=== PATIENT | male | born 1960 | race Caucasian/White ===

== ENCOUNTER → 2017-01-08 | Outpatient (CLI) | payer OTHER ==
--- NOTE | 2017-01-08 16:15 | US ---
EXAMINATION TYPE: US kidneys/renal and bladder DATE OF EXAM: 01/08/2017 10:31 AM COMPARISON: NONE CLINICAL HISTORY: R80.9 proteinuria. Proteinuria, obese patient EXAM MEASUREMENTS: Right Kidney: 13.0 x 7.2 x 5.7 cm Left Kidney: 11.7 x 6.3 x 6.1 cm Right Kidney: no hydronephrosis or masses seen Left Kidney: fluid seen within renal pelvis extending into calyces Bladder: not fully distended, limited visualization Bilateral Jets seen: yes IMPRESSION: 1. Normal renal ultrasound
== END | disposition home or self-care (01) ==
LOC: RADUSWWP 10:07
PROVIDERS: ATTEND Family Medicine
DX: R80.9 Proteinuria, unspecified (principal)
CPT/HCPCS: 76770

== ENCOUNTER 2017-05-13 16:08 | Emergency (ER) | payer OTHER ==
[2017-05-13] MEDS ORDERED: AMOXIC-POT CLAV 875MG STARTER 2 EACH TABLET PO STA (18:20)
--- NOTE | 2017-05-13 18:26 | ED ---
General Adult HPI - General Chief complaint: Skin/Abscess/Foreign Body Stated complaint: left baby toe Time Seen by Provider: 05/13/17 18:08 Source: patient, RN notes reviewed Mode of arrival: ambulatory Limitations: no limitations - History of Present Illness Initial comments: Patient's a 57-year-old male significant past medical history for diabetes, who presents emergency room today with a chief complaint of infection to the left fifth digit. He states he noticed that he had a blister 2 weeks ago. He refuses due to his work boots gets his job change and he was doing a different motion. Patient states that he noticed the blister opened and over the last few days she's noticed that the infection seems to be getting worse. He states he did go to his family doctor at the clinic was advised come here to the emergency room. Patient states he does not have any feeling down to this area is not painful but his noticed the redness and swelling. He denies any other complaints or symptoms. Patient denies any recent chills, shortness of breath, chest pain, back pain, abdominal pain, nausea or vomiting, numbness or tingling , dysuria or hematuria, constipation or diarrhea, headaches or visual changes, or any other complaints. - Related Data Home Medications Medication Instructions Recorded Confirmed ALPRAZolam [Xanax] 0.5 mg PO DAILY PRN 08/15/16 05/13/17 Atenolol 25 mg PO QAM 08/15/16 05/13/17 Atorvastatin [Lipitor] 80 mg PO HS 08/15/16 05/13/17 Escitalopram [Lexapro] 20 mg PO QAM 08/15/16 05/13/17 Lisinopril-Hctz 20-12.5 mg 1 tab PO DAILY 08/15/16 05/13/17 [Zestoretic 20-12.5] Multivitamins, Thera [Multivitamin] 1 tab PO DAILY 08/15/16 05/13/17 glipiZIDE [Glucotrol] 20 mg PO BID 08/15/16 05/13/17 metFORMIN HCL 1,000 mg PO BID 08/15/16 05/13/17 Previous Rx's Medication Instructions Recorded Amoxicillin/Potassium Clav 1 each PO Q12HR #20 tab 05/13/17 [Augmentin 875-125 Tablet] Allergies Allergy/AdvReac Type Severity Reaction Status Date / Time No Known Allergies Allergy Verified 05/13/17 16:23 Review of Systems ROS Statement: Those systems with pertinent positive or pertinent negative responses have been documented in the HPI. ROS Other: All systems not noted in ROS Statement are negative. Past Medical History Past Medical History: Diabetes Mellitus, Hyperlipidemia, Hypertension History of Any Multi-Drug Resistant Organisms: None Reported Past Surgical History: Adenoidectomy, Tonsillectomy Past Anesthesia/Blood Transfusion Reactions: No Reported Reaction Past Psychological History: Anxiety Smoking Status: Former smoker Past Alcohol Use History: None Reported Past Drug Use History: Marijuana General Exam - General Exam Comments Initial Comments: General: The patient is awake and alert, in no distress, and does not appear acutely ill. Eye: Pupils are equal, round and reactive to light, extra-ocular movements are intact. No nystagmus. There is normal conjunctiva bilaterally. No signs of icterus. Ears, nose, mouth and throat: There are moist mucous membranes and no oral lesions. Neck: The neck is supple, there is no tenderness or JVD. Cardiovascular: There is a regular rate and rhythm. No murmur, rub or gallop is appreciated. Respiratory: Lungs are clear to auscultation, respirations are non-labored, breath sounds are equal. No wheezes, stridor, rales, or rhonchi. Gastrointestinal: Soft, non-distended, non-tender abdomen without masses or organomegaly noted. There is no rebound or guarding present. No CVA tenderness. Bowel sounds are unremarkable. Musculoskeletal: Normal ROM, no tenderness. Strength 5/5. Sensation intact. Pulses equal bilaterally 2+. Neurological: A&O x 3. CN II-XII intact, There are no obvious motor or sensory deficits. Coordination appears grossly intact. Speech is normal. Skin: He does have a ulcerated wound to the lateral aspect of the left fifth digit. There is no active drainage. The color of the left toe is bluish in color. Patient's pulses are equal bilaterally 2+. He does have some small lethargic streaking up the left foot to approximately just before the left ankle. Psychiatric: Cooperative, appropriate mood & affect, normal judgment. Limitations: no limitations Course Vital Signs 05/13/17 16:20 Temperature 100 F H Pulse Rate 122 H Respiratory 20 Rate Blood Pressure 182/104 O2 Sat by Pulse 99 Oximetry Medical Decision Making - Medical Decision Making Patient was discussed with the patient admission to the hospital. He does have lymphangitic streaking low-grade fever here in the emergency room. Patient states he does not want to be admitted. States he would rather go home on antibiotics. Patient will be started on antibiotics to Augmentin. Disposition Clinical Impression: Diabetic foot ulcer Disposition: HOME SELF-CARE Condition: Undetermined Instructions: Diabetic Foot Ulcers (ED) Additional Instructions: Please follow-up with the family doctor in the next 1-2 days. Please use antibiotic as prescribed and return here to the emergency room if any symptoms increase or worsen or for any other concerns as discussed. Prescriptions: Amoxicillin/Potassium Clav [Augmentin 875-125 Tablet] 1 each PO Q12HR #20 tab Referrals: Simon Salguero DO [Primary Care Provider] - 1-2 days Time of Disposition: 18:25
[2017-05-13 18:37] VITALS: BP 138/75; PULSE 98; RESP 18; TEMP 98.4
== END 2017-05-13 18:37 | disposition home or self-care (01) ==
LOC: EC 16:08
DX: E11.621 Type 2 diabetes mellitus with foot ulcer (principal); L97.529 Non-pressure chronic ulcer of other part of left foot with unspecified severity; E78.5 Hyperlipidemia, unspecified; I10 Essential (primary) hypertension; F41.9 Anxiety disorder, unspecified; Z79.84 Long term (current) use of oral hypoglycemic drugs; Z79.899 Other long term (current) drug therapy; Z87.891 Personal history of nicotine dependence
CPT/HCPCS: 99283

== ENCOUNTER 2017-06-16 09:48 | Inpatient (IN) | payer OTHER ==
[2017-06-16] MEDS ORDERED: VANCOMYCIN IV PER PHARMACY 1 EACH MISC MISCELLANE PRN (10:19)
[2017-06-16] MEDS ORDERED: PIPERACILLIN-TAZOBACTAM 3.375 GM in DEXTROSE/WATER 1 50ML.BAG IVPB STA (10:19)
[2017-06-16] MEDS ORDERED: KETOROLAC 60 MG/2 ML VIAL IVP STA (10:20)
[2017-06-16] MEDS ORDERED: LORazepam 2 MG/ML INJ IV STA (10:20)
--- NOTE | 2017-06-16 10:24 | ED ---
General Adult HPI - General Chief complaint: Skin/Abscess/Foreign Body Stated complaint: Left foot baby toe-infection Time Seen by Provider: 06/16/17 10:00 Source: patient, RN notes reviewed Mode of arrival: ambulatory Limitations: no limitations - History of Present Illness Initial comments: This is a 57-year-old male who presents emergency Department complaining that his left fifth toe has been effective for over a month he took antibiotics early in the month but no continued to hurt drain and turned black. Patient states been a black over a week. Patient comes in today because his not getting any better and the pain is getting worse and the redness around it appears to be getting worse. Patient denies any fevers. Patient states he is diabetic. Patient has no other areas appear to be infected. - Related Data Home Medications Medication Instructions Recorded Confirmed Atenolol 25 mg PO QAM 08/15/16 06/16/17 Atorvastatin [Lipitor] 80 mg PO HS 08/15/16 06/16/17 Escitalopram [Lexapro] 20 mg PO QAM 08/15/16 06/16/17 Lisinopril-Hctz 20-12.5 mg 1 tab PO DAILY 08/15/16 06/16/17 [Zestoretic 20-12.5] Multivitamins, Thera [Multivitamin] 1 tab PO DAILY 08/15/16 06/16/17 glipiZIDE [Glucotrol] 20 mg PO AC-BID 08/15/16 06/16/17 metFORMIN HCL 1,000 mg PO BID 08/15/16 06/16/17 ALPRAZolam [Xanax] 1 mg PO DAILY 06/16/17 06/16/17 Saxagliptin HCl [Onglyza] 5 mg PO DAILY 06/16/17 06/16/17 Allergies Allergy/AdvReac Type Severity Reaction Status Date / Time No Known Allergies Allergy Verified 06/16/17 10:14 Review of Systems ROS Statement: Those systems with pertinent positive or pertinent negative responses have been documented in the HPI. ROS Other: All systems not noted in ROS Statement are negative. Past Medical History Past Medical History: Diabetes Mellitus, Hyperlipidemia, Hypertension History of Any Multi-Drug Resistant Organisms: None Reported Past Surgical History: Adenoidectomy, Tonsillectomy Past Anesthesia/Blood Transfusion Reactions: No Reported Reaction Past Psychological History: Anxiety Smoking Status: Former smoker Past Alcohol Use History: None Reported Past Drug Use History: Marijuana General Exam - General Exam Comments Initial Comments: GENERAL Patient is well-developed and well-nourished. Patient is in mild distress. EYES Patient's pupils are equal and round. Extraocular motion is intact SKIN Unremarkable NEURO The patient is alert and oriented 3 PYSCH Patient has normal interpersonal interactions. MUSCULOSKELETAL Left small toe is completely blocked her some drainage between the proximal aspect of the necrotic toe and the area that appears to be good skin. The area is also very tender and is erythematous at the base of the necrosis. Limitations: no limitations Course Vital Signs 06/16/17 10:10 Temperature 98.8 F Pulse Rate 87 Respiratory 20 Rate Blood Pressure 134/81 O2 Sat by Pulse 98 Oximetry Medical Decision Making - Lab Data Result diagrams: 06/16/17 10:48 06/16/17 10:48 Lab Results 06/16/17 06/16/17 06/16/17 Range/Units 10:48 10:48 10:48 WBC 10.5 (3.8-10.6) k/uL RBC 4.08 L (4.30-5.90) m/uL Hgb 12.9 L (13.0-17.5) gm/dL Hct 38.2 L (39.0-53.0) % MCV 93.6 (80.0-100.0) fL MCH 31.6 (25.0-35.0) pg MCHC 33.8 (31.0-37.0) g/dL RDW 13.7 (11.5-15.5) % Plt Count 370 (150-450) k/uL Neutrophils % 73 % Lymphocytes % 17 % Monocytes % 6 % Eosinophils % 2 % Basophils % 0 % Neutrophils # 7.7 (1.3-7.7) k/uL Lymphocytes # 1.7 (1.0-4.8) k/uL Monocytes # 0.6 (0-1.0) k/uL Eosinophils # 0.2 (0-0.7) k/uL Basophils # 0.1 (0-0.2) k/uL PT (9.0-12.0) sec INR (<1.2) APTT (22.0-30.0) sec Sodium 135 L (137-145) mmol/L Potassium 5.3 H (3.5-5.1) mmol/L Chloride 100 (98-107) mmol/L Carbon Dioxide 22 (22-30) mmol/L Anion Gap 13 mmol/L BUN 19 (9-20) mg/dL Creatinine 0.90 (0.66-1.25) mg/dL Est GFR (MDRD) Af Amer >60 (>60 ml/min/1.73 sqM) Est GFR (MDRD) Non-Af >60 (>60 ml/min/1.73 sqM) Glucose 288 H (74-99) mg/dL Plasma Lactic Acid Beltran 2.5 H* (0.7-2.0) mmol/L Calcium 9.7 (8.4-10.2) mg/dL Total Bilirubin 0.5 (0.2-1.3) mg/dL AST 23 (17-59) U/L ALT 37 (21-72) U/L Alkaline Phosphatase 140 H (38-126) U/L Total Protein 7.3 (6.3-8.2) g/dL Albumin 4.0 (3.5-5.0) g/dL 06/16/17 Range/Units 10:48 WBC (3.8-10.6) k/uL RBC (4.30-5.90) m/uL Hgb (13.0-17.5) gm/dL Hct (39.0-53.0) % MCV (80.0-100.0) fL MCH (25.0-35.0) pg MCHC (31.0-37.0) g/dL RDW (11.5-15.5) % Plt Count (150-450) k/uL Neutrophils % % Lymphocytes % % Monocytes % % Eosinophils % % Basophils % % Neutrophils # (1.3-7.7) k/uL Lymphocytes # (1.0-4.8) k/uL Monocytes # (0-1.0) k/uL Eosinophils # (0-0.7) k/uL Basophils # (0-0.2) k/uL PT 10.4 (9.0-12.0) sec INR 1.0 (<1.2) APTT 27.9 (22.0-30.0) sec Sodium (137-145) mmol/L Potassium (3.5-5.1) mmol/L Chloride (98-107) mmol/L Carbon Dioxide (22-30) mmol/L Anion Gap mmol/L BUN (9-20) mg/dL Creatinine (0.66-1.25) mg/dL Est GFR (MDRD) Af Amer (>60 ml/min/1.73 sqM) Est GFR (MDRD) Non-Af (>60 ml/min/1.73 sqM) Glucose (74-99) mg/dL Plasma Lactic Acid Beltran (0.7-2.0) mmol/L Calcium (8.4-10.2) mg/dL Total Bilirubin (0.2-1.3) mg/dL AST (17-59) U/L ALT (21-72) U/L Alkaline Phosphatase (38-126) U/L Total Protein (6.3-8.2) g/dL Albumin (3.5-5.0) g/dL Disposition Clinical Impression: Necrosis of toe Disposition: ADMITTED IP TO THIS HOSP Referrals: Simon Salguero DO [Primary Care Provider] - 1-2 days Time of Disposition: 12:07
[2017-06-16] MEDS ORDERED: VANCOMYCIN 2,000 MG in SODIUM CHLORIDE 0.9% 500 ML IVPB STA (10:25)
--- NOTE | 2017-06-16 10:56 | XR ---
EXAMINATION TYPE: XR toes LT DATE OF EXAM: 06/16/2017 COMPARISON: NONE HISTORY: Infection with pain TECHNIQUE: 3 views of left fifth toe were obtained. FINDINGS: Osseous structures are somewhat demineralized. There is suspicious destruction mid diaphysi s of fifth proximal phalanx. Moderate to severe soft tissue swelling of the fifth digit. Subcutaneous lucency is present suggesting gas-forming soft tissue infection overlying the fused mid to distal ph alanx. Vascular calcification overlying soft tissue is seen. IMPRESSION: There is suspected soft tissue infection distally in the fifth toe with irregular cortica l destruction strongly suspicious for acute osteomyelitis involving mid shaft of the fifth proximal p halanx.
[2017-06-16 11:13] LABS: Basophils # (A) 0.1 k/uL (0-0.2); Basophils % (A) 0 %; CHCM 33.3; Eosinophils # (A) 0.2 k/uL (0-0.7); Eosinophils % (A) 2 %; HCT 38.2 % (39.0-53.0); HDW 3.07; HGB 12.9 gm/dL (13.0-17.5); Luc # (Auto) 0.23; Luc % (Auto) 2; Lymphocytes # (A) 1.7 k/uL (1.0-4.8); Lymphocytes % (A) 17 %; MCH 31.6 pg (25.0-35.0); MCHC 33.8 g/dL (31.0-37.0); MCV 93.6 fL (80.0-100.0); Monocytes # (A) 0.6 k/uL (0-1.0); Monocytes % (A) 6 %; Neutrophils # (A) 7.7 k/uL (1.3-7.7); Neutrophils % (A) 73 %; RBC 4.08 m/uL (4.30-5.90); RDW 13.7 % (11.5-15.5); WBC 10.5 k/uL (3.8-10.6); WBC (Perox) 10.41
[2017-06-16 11:16] LABS: Partial Thromboplastin Time 27.9 sec (22.0-30.0); Prothrombin Time 10.4 sec (9.0-12.0)
[2017-06-16 11:19] LABS: ALT 37 U/L (21-72); AST 23 U/L (17-59); Alkaline Phosphatase 140 U/L (38-126); Anion Gap 13 mmol/L; Blood Urea Nitrogen 19 mg/dL (9-20); Calcium 9.7 mg/dL (8.4-10.2); Carbon Dioxide 22 mmol/L (22-30); Chloride 100 mmol/L (98-107); Glucose 288 mg/dL (74-99); Non-African American GFR(MDRD) >60 (>60 ml/min/1.73 sqM); Potassium 5.3 mmol/L (3.5-5.1); Sodium 135 mmol/L (137-145); Total Bilirubin 0.5 mg/dL (0.2-1.3); Total Protein 7.3 g/dL (6.3-8.2)
[2017-06-16] MEDS ORDERED: SODIUM CHLORIDE 0.9% 1,000 ML IV ONE ×2 (11:25→12:07)
[2017-06-16] MEDS ORDERED: VANCOMYCIN 2,000 MG in SODIUM CHLORIDE 0.9% 500 ML IVPB ONE (14:00)
[2017-06-16 15:00] LABS: Glucose,Whole Blood 161 mg/dL (75-99)
[2017-06-16] MEDS: ALPRAZolam 0.5 MG TAB PO PRN (15:46)
[2017-06-16 17:18] LABS: Glucose,Whole Blood 211 mg/dL (75-99)
[2017-06-16] MEDS ORDERED: TEMAZEPAM 15 MG CAP PO PRN (17:19)
[2017-06-16] MEDS: glipiZIDE 10 MG TAB PO SCH (17:19)
[2017-06-16] MEDS: INSULIN LISPRO (humaLOG) 300 UNIT/3 ML VIAL SQ SCH ×2 (17:20→21:47)
[2017-06-16] MEDS ORDERED: KETOROLAC 30 MG/ML 1 ML VIAL IVP SCH (18:00)
[2017-06-16] MEDS: PIPERACILLIN-TAZOBACTAM 3.375 GM in DEXTROSE/WATER 1 50ML.BAG IVPB SCH (18:27)
--- NOTE | 2017-06-16 18:41 | HP ---
HISTORY AND PHYSICAL CHIEF COMPLAINTS: Pain and swelling of the left fifth toe as well as blackish discoloration. HISTORY OF PRESENT ILLNESS: This 57-year-old gentleman with a past medical history of hypertension, hyperlipidemia, anxiety, being followed by the [facility] in [place], was noted to have a left little toe infection several weeks ago. The patient apparently was washing his feet with Epsom salt. The patient was also wearing ill-fitting shoes and had a blister at the site originally. Because of increasing difficulty, the patient came to [facility] and was admitted for further evaluation and treatment. Currently the left foot is painful, tender, erythematous. The patient was taking some antibiotic previously per mouth. The patient also has some gangrenous changes in the left foot. There is no history of fever, rigor, chills. No history of headache, loss of consciousness, seizures. PAST MEDICAL HISTORY: 1. Diabetes mellitus. 2. Hypertension. 3. Hyperlipidemia. 4. History of adenoidectomy and tonsillectomy. MEDICATIONS PRIOR TO ADMISSION: 1. Glucotrol 20 mg before meals b.i.d. 2. Onglyza 5 mg p.o. daily. 3. Lipitor 80 mg at bedtime. 4. Metformin 1000 mg b.i.d. 5. Multivitamins 1 p.o. daily. 6. Zestoretic 1 tablet p.o. daily. 7. Lexapro 20 mg each morning. 8. Atenolol 25 mg each morning. 9. Xanax 1 mg p.o. daily. ALLERGIES: NONE. FAMILY HISTORY: History of diabetes mellitus and gallbladder disease in the family. SOCIAL HISTORY: Previous history of smoking. No current smoking or alcohol intake. REVIEW OF SYSTEMS: ENT: No diminished hearing. No diminished vision. CARDIOVASCULAR SYSTEM: No angina, palpitations. RESPIRATORY SYSTEM: No cough, hemoptysis. GI: No nausea, vomiting. : No dysuria or retention. NERVOUS SYSTEM: As mentioned earlier. ALLERGY/IMMUNOLOGY: No asthma, hayfever. MUSCULOSKELETAL: As mentioned earlier. HEMATOLOGY/ONCOLOGY: No history of anemia. ENDOCRINE: As mentioned earlier. CONSTITUTIONAL: As mentioned earlier. DERMATOLOGY: As mentioned earlier. RHEUMATOLOGY: Negative. PSYCHIATRY: As mentioned earlier. PHYSICAL EXAMINATION: Alert and oriented x3. Pulse 70, blood pressure 145/83, respiration 18, temperature 98.7, pulse ox 98% on room air. HEENT: Conjunctivae normal. Oral mucosa moist. NECK: No jugular venous distention. No carotid bruit. No lymph node enlargement. CARDIOVASCULAR: S1, S2 muffled. No S3. No S4. RESPIRATORY: Breath sounds diminished at the bases. A few scattered rhonchi and crackles. ABDOMEN: Soft, obese. Nontender. No mass palpable. LEGS: The pulses are felt. Otherwise, abnormalities. Swelling of the left foot with left little toe gangrenous area present. SKIN: As mentioned earlier. NERVOUS SYSTEM: No focal motor deficit. Minimal sensory impairment. LYMPHATICS: No lymph node palpable in neck, axillae or groin. JOINTS: No active deforming arthropathy. LABS: WBC 10.5, hemoglobin 12.9, sodium 134, potassium 5.3. Plasma lactic acid 2.5. ASSESSMENT: 1. Acute left little toe infection with possible early sepsis. Rule out osteomyelitis. 2. Diabetes mellitus, type 2. 3. Diabetic peripheral neuropathy. 4. Hyponatremia. 5. Hyperkalemia. 6. History hypertension. 7. Hyperlipidemia. 8. History of Fowler's palsy. 9. History of anxiety. RECOMMENDATIONS AND DISCUSSION: In this 57-year-old gentleman who presented with multiple complex medical issues , we will monitor the patient closely. Patient was started on a combination of Zosyn and vancomycin. Will obtain wound cultures. Otherwise, we will initiate infectious disease and vascular surgery consultations. Monitor blood sugars closely. The importance of compliance was also stressed with the patient. Home medications will be continued. Also recommend DVT prophylaxis. Symptomatic treatment. Guarded prognosis because of multiple complex medical issues. Further recommendations to follow. Prognosis guarded. Discussed with the patient and family, who understand and agree. A copy of this dictation is being forwarded to Dr. Salguero, who is the primary physician. MMODL / IJN: [id number] / OC
--- NOTE | 2017-06-16 19:09 | P.GSCN ---
History of Present Illness History of present illness: 57-year-old diabetic male, patient came to the emergency room with history of left foot fifth toe gangrene according to this patient had this for the last 1 month and he was treated with the antibiotic and local care Patient has been admitted and a under care of hospitalist and Dr. Te Mustafa with IV antibiotic Medical history history of diabetes, history of hyperlipidemia, history of hypertension, Personal history former smoker Neck examination neck is supple no bruit appreciated chest clear first and second sound normal Abdomen soft nontender Vascular examination femorals are palpable posterior tibial dorsal pedis not palpable present but the Doppler left foot fifth toe has a gangrene or redness noted Plan is IV antibiotic we'll discuss with Dr. Mustafa most likel will need toe amputation we will follow with you thank you Past Medical History Past Medical History: Diabetes Mellitus, Hyperlipidemia, Hypertension, Neurologic Disorder Additional Past Medical History / Comment(s): NIDDM type II, 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 History of Any Multi-Drug Resistant Organisms: None Reported Past Surgical History: Adenoidectomy, Tonsillectomy Additional Past Surgical History / Comment(s): Colonoscopy with benign polypectomies Past Anesthesia/Blood Transfusion Reactions: No Reported Reaction Past Psychological History: Anxiety Additional Psychological History / Comment(s): Pt lives alone. He is independent. 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 Smoking Status: Former smoker Past Alcohol Use History: None Reported Additional Past Alcohol Use History / Comment(s): SMOKING: QUIT 2015, FOR 40 YRS , 2-3 PPD. Past Drug Use History: Marijuana Additional Drug Use History / Comment(s): Pt states he quit smoking marijuana and that he has not smoked marijuana in 4 months. - Past Family History Father Family Medical History: Diabetes Mellitus Additional Family Medical History / Comment(s): Father had gallbladder disease. He is 77yrs old. Mother Family Medical History: Hyperlipidemia Medications and Allergies Home Medications Medication Instructions Recorded Confirmed Type Atenolol 25 mg PO QAM 08/15/16 06/16/17 History Atorvastatin [Lipitor] 80 mg PO HS 08/15/16 06/16/17 History Escitalopram [Lexapro] 20 mg PO QAM 08/15/16 06/16/17 History Lisinopril-Hctz 20-12.5 mg 1 tab PO DAILY 08/15/16 06/16/17 History [Zestoretic 20-12.5] Multivitamins, Thera [Multivitamin] 1 tab PO DAILY 08/15/16 06/16/17 History glipiZIDE [Glucotrol] 20 mg PO AC-BID 08/15/16 06/16/17 History metFORMIN HCL 1,000 mg PO BID 08/15/16 06/16/17 History ALPRAZolam [Xanax] 1 mg PO DAILY 06/16/17 06/16/17 History Saxagliptin HCl [Onglyza] 5 mg PO DAILY 06/16/17 06/16/17 History Allergies Allergy/AdvReac Type Severity Reaction Status Date / Time No Known Allergies Allergy Verified 06/16/17 10:14 Surgical - Exam Vital Signs Temp Pulse Resp BP Pulse Ox 98.8 F 87 20 134/81 98 06/16/17 10:10 06/16/17 10:10 06/16/17 10:10 06/16/17 10:10 06/16/17 10:10 Results - Labs 06/16/17 10:48 06/16/17 10:48 Abnormal Lab Results - Last 24 Hours (Table) 06/16/17 06/16/17 06/16/17 Range/Units 10:48 10:48 10:48 RBC 4.08 L (4.30-5.90) m/uL Hgb 12.9 L (13.0-17.5) gm/dL Hct 38.2 L (39.0-53.0) % Sodium 135 L (137-145) mmol/L Potassium 5.3 H (3.5-5.1) mmol/L Glucose 288 H (74-99) mg/dL POC Glucose (mg/dL) (75-99) mg/dL Plasma Lactic Acid Beltran 2.5 H* (0.7-2.0) mmol/L Alkaline Phosphatase 140 H (38-126) U/L 06/16/17 06/16/17 Range/Units 14:57 16:48 RBC (4.30-5.90) m/uL Hgb (13.0-17.5) gm/dL Hct (39.0-53.0) % Sodium (137-145) mmol/L Potassium (3.5-5.1) mmol/L Glucose (74-99) mg/dL POC Glucose (mg/dL) 161 H 211 H (75-99) mg/dL Plasma Lactic Acid Beltran (0.7-2.0) mmol/L Alkaline Phosphatase (38-126) U/L Microbiology - Last 24 Hours (Table) 06/16/17 12:11 Wound Culture - Preliminary Toe - Left Fifth Diabetes panel 06/16/17 Range/Units 10:48 Sodium 135 L (137-145) mmol/L Potassium 5.3 H (3.5-5.1) mmol/L Chloride 100 (98-107) mmol/L Carbon Dioxide 22 (22-30) mmol/L BUN 19 (9-20) mg/dL Creatinine 0.90 (0.66-1.25) mg/dL Glucose 288 H (74-99) mg/dL Calcium 9.7 (8.4-10.2) mg/dL AST 23 (17-59) U/L ALT 37 (21-72) U/L Alkaline Phosphatase 140 H (38-126) U/L Total Protein 7.3 (6.3-8.2) g/dL Albumin 4.0 (3.5-5.0) g/dL Calcium panel 06/16/17 Range/Units 10:48 Calcium 9.7 (8.4-10.2) mg/dL Albumin 4.0 (3.5-5.0) g/dL Pituitary panel 06/16/17 Range/Units 10:48 Sodium 135 L (137-145) mmol/L Potassium 5.3 H (3.5-5.1) mmol/L Chloride 100 (98-107) mmol/L Carbon Dioxide 22 (22-30) mmol/L BUN 19 (9-20) mg/dL Creatinine 0.90 (0.66-1.25) mg/dL Glucose 288 H (74-99) mg/dL Calcium 9.7 (8.4-10.2) mg/dL Adrenal panel 06/16/17 Range/Units 10:48 Sodium 135 L (137-145) mmol/L Potassium 5.3 H (3.5-5.1) mmol/L Chloride 100 (98-107) mmol/L Carbon Dioxide 22 (22-30) mmol/L BUN 19 (9-20) mg/dL Creatinine 0.90 (0.66-1.25) mg/dL Glucose 288 H (74-99) mg/dL Calcium 9.7 (8.4-10.2) mg/dL Total Bilirubin 0.5 (0.2-1.3) mg/dL AST 23 (17-59) U/L ALT 37 (21-72) U/L Alkaline Phosphatase 140 H (38-126) U/L Total Protein 7.3 (6.3-8.2) g/dL Albumin 4.0 (3.5-5.0) g/dL
[2017-06-16 20:56] LABS: Glucose,Whole Blood 209 mg/dL (75-99)
[2017-06-16] MEDS: ATORVASTATIN 80 MG TAB PO SCH (21:47)
[2017-06-16] MEDS: metFORMIN 500 MG TAB PO SCH (21:47)
[2017-06-16] MEDS: HEPARIN SODIUM,PORCINE 5,000 UNIT/ML 1 ML VIAL SQ SCH (21:47)
--- NOTE | 2017-06-16 21:55 | P.CONS ---
History of Present Illness - Reason for Consult Consult date: 06/16/17 - Chief Complaint Black eschar left fifth toe - History of Present Illness 57-year-old male with a long-standing history of diabetes mellitus type 2 and obesity relates that normally he does provide significant Criticare to his feet. He moisturizes feet, looks for wounds, and keeps his nails well trimmed. Relates that several weeks ago he had a new. Shoes. And after wearing the shoe he developed a blister on the left foot fifth toe. He treated it as he would in the past with topical therapy. The blisters seem to worsen a bit and constantly started utilizing topical antibiotic therapy as well as Epson salt soaks for healing. Despite the local ongoing care the toe continued to worsen. Eventually the tip the toe was turning black and he sought medical attention. He was admitted to hospital and has not been seen by vascular surgery and infectious diseases consultation was requested regarding the antibiotic therapy. This for a pleasant gentleman relates that he is somewhat fanatical about his feet inspecting them frequently and even inspects his shoes. He does relate that when he saw that the wound was worsening on that fifth toe that he was talking himself in that the process was not that bad and eventually the dark spot would fall off. His family also helped him make up his mind to come to hospital. He is denying high-grade fevers, chills or rigors. Is anxious about the toe. Blood sugars have been modest. Review of Systems 57-year-old male who relates he is not feeling very poorly this time but is anxious about his foot HEENT:Denies headache or acute visual change. Denies sinus or mouth discomforts. Denies neck stiffness or pain. Denies significant oral cavity pain. Denies difficulty on swallowing. Lungs: Denies significant shortness of breath, cough, sputum production, or hemoptysis. Cardiovascular: Denies significant shortness of breath, chest pain, chest wall pain, orthopnea, dyspnea on exertion, syncope Gastrointestinal:Denies nausea, vomiting, diarrhea, constipation, hematemesis, melena, hematochezia. No no significant change of bowel habit noticed. Musculoskeletal: denies significant myalgias or arthralgias. No new joint swelling. Denies new back pain. Skin: As per the HPI Neuro: Denies headache or visual change. Denies any new onset weakness or difficulty with ambulation. Denies falls or seizures. Psychiatric:Denies anxiety or depression. Endocrine: Denies significant fatigue, denies significant weight loss or weight gain. 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 History of Any Multi-Drug Resistant Organisms: None Reported Past Surgical History: Adenoidectomy, Tonsillectomy Additional Past Surgical History / Comment(s): Colonoscopy with benign polypectomies Past Anesthesia/Blood Transfusion Reactions: No Reported Reaction Past Psychological History: Anxiety Additional Psychological History / Comment(s): Pt lives alone. He is independent. He was in the and is stationed in [place] as well as in [place], he is considerably too young to be involved in the [place] conflict. No illnesses while he was in . 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 Facility stopped smoking about a year ago. Denies significant alcohol or recreational drug use. His parents are highly involved. No animal exposures. No recent travel. Denied any sexual partners at this time. Smoking Status: Former smoker Past Alcohol Use History: None Reported Additional Past Alcohol Use History / Comment(s): SMOKING: QUIT 2015, FOR 40 YRS , 2-3 PPD. Past Drug Use History: Marijuana Additional Drug Use History / Comment(s): Pt states he quit smoking marijuana and that he has not smoked marijuana in 4 months. - Past Family History Father Family Medical History: Diabetes Mellitus Additional Family Medical History / Comment(s): Father had gallbladder disease. He is 77yrs old. Mother Family Medical History: Hyperlipidemia Medications and Allergies Home Medications and Allergies Comment(s): Current Medications Hydrocodone Bitart/Acetaminophen ([place] 5-325) 1 each PO Q6HR PRN PRN Reason: Moderate Pain Alprazolam (Xanax) 1 mg PO DAILY PRN PRN Reason: Anxiety Last Admin: 06/16/17 15:46 Dose: 1 mg Atenolol (Tenormin) 25 mg PO QAM [facility] Atorvastatin Calcium (Lipitor) 80 mg PO HS [facility] Last Admin: 06/16/17 21:47 Dose: 80 mg Escitalopram Oxalate (Lexapro) 20 mg PO QAM [facility] Glipizide (Glucotrol) 20 mg PO AC-BID [facility] Last Admin: 06/16/17 17:19 Dose: 20 mg Lisinopril/HCTZ (Zestoretic 20-12.5) 1 each PO DAILY [facility] Heparin Sodium (Porcine) (Heparin) 5,000 unit SQ Q12HR [facility] Last Admin: 06/16/17 21:47 Dose: 5,000 unit Vancomycin HCl 1,750 mg/ (Sodium Chloride) 250 mls @ 125 mls/hr IVPB Q12H [facility] Piperacillin/Tazobactam/ (Dextrose 3.375 gm/ IV Solution) 50 mls @ 12.5 mls/hr IVPB Q8H [facility] Last Admin: 06/16/17 18:27 Dose: 12.5 mls/hr Sodium Chloride (Saline 0.9%) 1,000 mls @ 100 mls/hr IV .Q10H ONE Stop: 06/16/17 22:06 Last Admin: 06/16/17 12:17 Dose: 100 mls/hr Insulin Human Lispro (Humalog) 0 unit SQ ACHS HELEN PRN Reason: Protocol Last Admin: 06/16/17 21:47 Dose: 4 unit Ketorolac Tromethamine (Toradol) 15 mg IVP Q6HR PRN PRN Reason: Pain Stop: 06/20/17 18:01 Linagliptin (Tradjenta) 5 mg PO DAILY [facility] Metformin HCl (Glucophage) 1,000 mg PO BID [facility] Last Admin: 06/16/17 21:47 Dose: 1,000 mg Multivitamins (Theragran) 1 each PO 1200 HELEN Temazepam (Restoril) 15 mg PO HS PRN PRN Reason: Insomnia Home Medications Medication Instructions Recorded Confirmed Type Atenolol 25 mg PO QAM 08/15/16 06/16/17 History Atorvastatin [Lipitor] 80 mg PO HS 08/15/16 06/16/17 History Escitalopram [Lexapro] 20 mg PO QAM 08/15/16 06/16/17 History Lisinopril-Hctz 20-12.5 mg 1 tab PO DAILY 08/15/16 06/16/17 History [Zestoretic 20-12.5] Multivitamins, Thera [Multivitamin] 1 tab PO DAILY 08/15/16 06/16/17 History glipiZIDE [Glucotrol] 20 mg PO AC-BID 08/15/16 06/16/17 History metFORMIN HCL 1,000 mg PO BID 08/15/16 06/16/17 History ALPRAZolam [Xanax] 1 mg PO DAILY 06/16/17 06/16/17 History Saxagliptin HCl [Onglyza] 5 mg PO DAILY 06/16/17 06/16/17 History Allergies Allergy/AdvReac Type Severity Reaction Status Date / Time No Known Allergies Allergy Verified 06/16/17 10:14 Physical Exam Vitals: Vital Signs Temp Pulse Pulse Resp BP BP Pulse Ox 06/16/17 15:00 97.0 F L 76 20 138/84 99 06/16/17 14:36 98.7 F 70 18 145/83 98 06/16/17 14:01 98.7 F 70 18 145/83 98 06/16/17 10:10 98.8 F 87 20 134/81 98 Intake and Output 06/16/17 06/16/17 06/16/17 06:59 14:59 22:59 Intake Total 240 Balance 240 Intake: Oral 240 Other: Weight 111.13 kg Patient Weight 06/17/17 06:59 Weight 111.13 kg Pleasant 57-year-old male who does have obesity but seems to be comfortable at this time HEENT: Anicteric conjunctiva are pink and moist nasal mucosa grossly intact without significant lesions, there is no thrush. Neck: The neck is supple without significant lymphadenopathy or thyromegaly. Lungs: Symmetrical air entry with evidence of scattered wheezes but no bronchial sounds are heard Heart: Regular rate and rhythm with an audible S1-S2, no S3 soft S4. There is no significant murmur click or rub, PMI was nondisplaced. Abdomen: Positive bowel sounds soft and nontender without palpable masses or organomegaly. There was no guarding or rebound. Extremities: The upper extremities have excellent pulses they are symmetric, no significant petechiae or telangiectasia. No splinter hemorrhages were noted. The lower extremities show evidence of the significant changes to the left foot. There is evidence of swelling to the foot, erythema to the foot in the distal leg. There is evidence of the dry gangrenous changes to the distal aspect of the fifth toe. The foot is warm to touch. No other ulcers are seen on either lower extremity. Femoral pulses are easily palpable bilaterally. No lymphadenopathy is noted to the left inguinal area. No other abnormal lymph nodes are noted at this time. Neuro: Awake alert oriented to person place and time. There are no acute new gross focal sensory motor deficits. Has distinctly intact sensation over the toes of the left foot. Results CBC & Chem 7: 06/16/17 10:48 06/16/17 10:48 Labs: Abnormal Lab Results - Last 24 Hours (Table) 06/16/17 06/16/17 06/16/17 Range/Units 10:48 10:48 10:48 RBC 4.08 L (4.30-5.90) m/uL Hgb 12.9 L (13.0-17.5) gm/dL Hct 38.2 L (39.0-53.0) % Sodium 135 L (137-145) mmol/L Potassium 5.3 H (3.5-5.1) mmol/L Glucose 288 H (74-99) mg/dL POC Glucose (mg/dL) (75-99) mg/dL Plasma Lactic Acid Beltran 2.5 H* (0.7-2.0) mmol/L Alkaline Phosphatase 140 H (38-126) U/L 06/16/17 06/16/17 06/16/17 Range/Units 14:57 16:48 20:44 RBC (4.30-5.90) m/uL Hgb (13.0-17.5) gm/dL Hct (39.0-53.0) % Sodium (137-145) mmol/L Potassium (3.5-5.1) mmol/L Glucose (74-99) mg/dL POC Glucose (mg/dL) 161 H 211 H 209 H (75-99) mg/dL Plasma Lactic Acid Beltran (0.7-2.0) mmol/L Alkaline Phosphatase (38-126) U/L Microbiology - Last 24 Hours (Table) 06/16/17 12:11 Gram Stain - Preliminary Toe - Left Fifth Wound Culture - Preliminary Laboratory Results WBC 10.5 k/uL (3.8-10.6) 06/16/17 10:48 RBC 4.08 m/uL (4.30-5.90) L 06/16/17 10:48 Hgb 12.9 gm/dL (13.0-17.5) L 06/16/17 10:48 Hct 38.2 % (39.0-53.0) L 06/16/17 10:48 MCV 93.6 fL (80.0-100.0) 06/16/17 10:48 MCH 31.6 pg (25.0-35.0) 06/16/17 10:48 MCHC 33.8 g/dL (31.0-37.0) 06/16/17 10:48 RDW 13.7 % (11.5-15.5) 06/16/17 10:48 Plt Count 370 k/uL (150-450) 06/16/17 10:48 Neutrophils % 73 % 06/16/17 10:48 Lymphocytes % 17 % 06/16/17 10:48 Monocytes % 6 % 06/16/17 10:48 Eosinophils % 2 % 06/16/17 10:48 Basophils % 0 % 06/16/17 10:48 Neutrophils # 7.7 k/uL (1.3-7.7) 06/16/17 10:48 Lymphocytes # 1.7 k/uL (1.0-4.8) 06/16/17 10:48 Monocytes # 0.6 k/uL (0-1.0) 06/16/17 10:48 Eosinophils # 0.2 k/uL (0-0.7) 06/16/17 10:48 Basophils # 0.1 k/uL (0-0.2) 06/16/17 10:48 PT 10.4 sec (9.0-12.0) 06/16/17 10:48 INR 1.0 (<1.2) 06/16/17 10:48 APTT 27.9 sec (22.0-30.0) 06/16/17 10:48 Sodium 135 mmol/L (137-145) L 06/16/17 10:48 Potassium 5.3 mmol/L (3.5-5.1) H 06/16/17 10:48 Chloride 100 mmol/L (98-107) 06/16/17 10:48 Carbon Dioxide 22 mmol/L (22-30) 06/16/17 10:48 Anion Gap 13 mmol/L 06/16/17 10:48 BUN 19 mg/dL (9-20) 06/16/17 10:48 Creatinine 0.90 mg/dL (0.66-1.25) 06/16/17 10:48 Est GFR (MDRD) Af Amer >60 (>60 ml/min/1.73 sqM) 06/16/17 10:48 Est GFR (MDRD) Non-Af >60 (>60 ml/min/1.73 sqM) 06/16/17 10:48 Glucose 288 mg/dL (74-99) H 06/16/17 10:48 POC Glucose (mg/dL) 209 mg/dL (75-99) H 06/16/17 20:44 POC Glu Certified Midwife ID Nikki Mejía 06/16/17 20:44 Lactic Ac Sepsis Rflx Y 06/16/17 11:17 Plasma Lactic Acid Bel[place] 1.5 mmol/L (0.7-2.0) 06/16/17 14:57 Calcium 9.7 mg/dL (8.4-10.2) 06/16/17 10:48 Total Bilirubin 0.5 mg/dL (0.2-1.3) 06/16/17 10:48 AST 23 U/L (17-59) 06/16/17 10:48 ALT 37 U/L (21-72) 06/16/17 10:48 Alkaline Phosphatase 140 U/L (38-126) H 06/16/17 10:48 Total Protein 7.3 g/dL (6.3-8.2) 06/16/17 10:48 Albumin 4.0 g/dL (3.5-5.0) 06/16/17 10:48 Microbiology 06/16/17 12:11 Toe - Left Fifth Gram Stain - Preliminary 06/16/17 12:11 Toe - Left Fifth Wound Culture - Preliminary Assessment and Plan (1) Osteomyelitis of toe Status: Acute (2) Diabetic ulcer of left foot associated with diabetes mellitus due to underlying condition, with necrosis of bone Narrative/Plan: 57-year-old male with a several year history of diabetes mellitus type 2 and obesity presents with somewhat sudden onset of gangrenous change to his left fifth toe. He believes it started as a blister from an ill fitting shoe. Despite ongoing care for at home he is now developed evidence of a gangrenous changes to the toe. Vascular surgery consult is in progress and await their evaluation as to the patient's vascular status need for any workup before proceeding to the amputation of that fifth distal toe. Given his diabetes antimicrobial therapy with piperacillin tazobactam and vancomycin area process pending culture results. Fortunately the patient is a 30 stopped smoking We'll need to offload that foot We'll follow the wound healing center after discharge Multivitamin with zinc is requested Ensure there is adequate protein intake Enhance his glucose control Status: Acute
[2017-06-16] MEDS: VANCOMYCIN 1,750 MG in SODIUM CHLORIDE 0.9% 250 ML IVPB SCH (22:40)
[2017-06-17] MEDS: PIPERACILLIN-TAZOBACTAM 3.375 GM in DEXTROSE/WATER 1 50ML.BAG IVPB SCH ×3 (02:59→18:53)
[2017-06-17 07:21] LABS: Glucose,Whole Blood 140 mg/dL (75-99)
[2017-06-17] MEDS: glipiZIDE 10 MG TAB PO SCH ×2 (07:27→18:47)
[2017-06-17] MEDS: INSULIN LISPRO (humaLOG) 300 UNIT/3 ML VIAL SQ SCH ×4 (07:27→21:17)
[2017-06-17] MEDS: HEPARIN SODIUM,PORCINE 5,000 UNIT/ML 1 ML VIAL SQ SCH ×2 (08:33→21:15)
[2017-06-17] MEDS: metFORMIN 500 MG TAB PO SCH ×2 (08:38→21:15)
[2017-06-17] MEDS: LINAGLIPTIN 5 MG TABLET PO SCH (08:38)
[2017-06-17] MEDS: ESCITALOPRAM 20 MG TAB PO SCH (08:39)
[2017-06-17] MEDS: LISINOPRIL-HCTZ 20-12.5 MG 1 EACH TAB PO SCH (08:39)
[2017-06-17] MEDS: ATENOLOL 25 MG TAB PO SCH (08:39)
[2017-06-17] MEDS: VANCOMYCIN 1,750 MG in SODIUM CHLORIDE 0.9% 250 ML IVPB SCH ×2 (09:40→22:22)
[2017-06-17 10:05] LABS: Hemoglobin A1C 11.7 % (4.2-6.1)
[2017-06-17] MEDS: ALPRAZolam 0.5 MG TAB PO PRN (10:50)
[2017-06-17] MEDS: MULTIVITAMINS, THERA 1 EACH TAB PO SCH (11:21)
[2017-06-17 12:50] LABS: Glucose,Whole Blood 196 mg/dL (75-99)
--- NOTE | 2017-06-17 13:47 | NM ---
EXAMINATION TYPE: NM bone 3 phase DATE OF EXAM: 06/17/2017 COMPARISON: 07-01 x-ray HISTORY: Swelling of the left fifth digit Triple phase bone scintigraphy was performed following the injection of24.7 mCi Tc 99m MDP. Immediat e images and 5 hours post injection images acquired. FINDINGS: There is increased perfusion to the left foot. Increased soft tissue uptake is also noted. Delayed imaging demonstrates abnormal uptake involving the tarsal bones as well as the fifth digit. IMPRESSION: Findings compatible with cellulitis and osteomyelitis fifth digit. X-ray demonstrates destructive kailash nges involving the proximal phalanx.
[2017-06-17] MEDS ORDERED: LACTATED RINGERS 1,000 ML IV ONE (16:50)
[2017-06-17 16:58] LABS: Glucose,Whole Blood 120 mg/dL (75-99)
[2017-06-17] MEDS ORDERED: PROPOFOL 10 MG/ML 20 ML VIAL IV ONE (17:26)
[2017-06-17] MEDS ORDERED: MIDAZOLAM 2 MG/2 ML VIAL ONE (17:26)
[2017-06-17] MEDS ORDERED: LIDOCAINE 1% INJ 10MG/ML (20 ML MDV) ONE (17:26)
[2017-06-17] MEDS ORDERED: LIDOCAINE 1% INJ 10MG/ML (20 ML MDV) SQ ONE ×2 (17:41)
[2017-06-17 18:21] LABS: Glucose,Whole Blood 104 mg/dL (75-99)
--- NOTE | 2017-06-17 18:42 | PN ---
PROGRESS NOTE DATE OF SERVICE: 06/17/2017 INTERVAL HISTORY: This 57-year-old gentleman who was admitted with left little toe infection and diabetic foot admitted for surgery by Dr. Irby for broad-spectrum IV antibiotics for osteomyelitis of the 5th digit. No chest pain. No palpitations. No fever. PHYSICAL EXAM: Alert and oriented x3. Pulse 85, blood pressure 148/94, respirations 20, temperature 97 degrees, pulse ox 98% room air. HEENT: Conjunctivae normal. NECK: No jugular venous distention. CARDIOVASCULAR: S1, S2 muffled. RESPIRATORY: Breath sounds diminished in the bases. A few scattered rhonchi. No crackles. ABDOMEN: Soft, nontender. LEGS: Right foot 5th toe osteomyelitis present. NERVOUS SYSTEM: No focal deficits. LABS: WBC 10.1, hemoglobin 10.9. Glucose noted. ASSESSMENT: 1. Acute left toe infection, diabetic foot with osteomyelitis with possible early sepsis. 2. Diabetes mellitus type 2. 3. History of diabetic peripheral neuropathy. 4. Hyponatremia. 5. Hypokalemia. 6. History of hypertension. 7. Hyperlipidemia. 8. History of Fowler palsy. 9. History of anxiety. RECOMMENDATIONS AND DISCUSSION: Recommend to continue current monitoring and symptomatic treatment. Otherwise at this time, I would recommend continuing with broad-spectrum IV antibiotics, possible surgery by Dr. Irby. Further recommendations to follow. Monitor blood sugars closely. Hemoglobin A1c is 11.7. We will initiate Lantus, also. MMODL / IJN: [id number] /
[2017-06-17] MEDS: HYDROcodone/APAP 5-325MG 1 EACH TAB PO PRN (20:29)
[2017-06-17 21:00] LABS: Glucose,Whole Blood 194 mg/dL (75-99)
[2017-06-17] MEDS ORDERED: INSULIN GLARGINE 100 UNIT/ML 10 ML VIAL SQ SCH (21:00)
[2017-06-17] MEDS: ATORVASTATIN 80 MG TAB PO SCH (21:15)
--- NOTE | 2017-06-17 23:02 | P.PN ---
Subjective Principal diagnosis: Left diabetic foot infection 57-year-old male with a long-standing history of diabetes mellitus type 2 and obesity relates that normally he does provide significant Criticare to his feet. He moisturizes feet, looks for wounds, and keeps his nails well trimmed. Relates that several weeks ago he had a new. Shoes. And after wearing the shoe he developed a blister on the left foot fifth toe. He treated it as he would in the past with topical therapy. The blisters seem to worsen a bit and constantly started utilizing topical antibiotic therapy as well as Epson salt soaks for healing. Despite the local ongoing care the toe continued to worsen. Eventually the tip the toe was turning black and he sought medical attention. He was admitted to hospital and has not been seen by vascular surgery and infectious diseases consultation was requested regarding the antibiotic therapy. This for a pleasant gentleman relates that he is somewhat fanatical about his feet inspecting them frequently and even inspects his shoes. He does relate that when he saw that the wound was worsening on that fifth toe that he was talking himself in that the process was not that bad and eventually the dark spot would fall off. His family also helped him make up his mind to come to hospital. He is denying high-grade fevers, chills or rigors. Is anxious about the toe. The patient is been seen by vascular surgery and is been taking the operating room for the amputation of the gangrenous fifth toe of the left foot. He is doing well postoperatively. No fevers or chills. We discussed his markedly elevated hemoglobin A1c. Objective - Vital Signs Vital signs: Vital Signs Temp 97 F L 06/17/17 18:10 Pulse 70 06/17/17 18:25 Resp 16 06/17/17 18:25 BP 124/73 06/17/17 18:25 Pulse Ox 96 06/17/17 18:25 Intake & Output 06/17/17 06/17/17 06/18/17 06:59 18:59 06:59 Intake Total 850 1090 Output Total 3 Balance 850 1087 Intake: IV 850 Oral 850 240 Output: Estimated Blood Loss 3 Other: Voiding Method Toilet # Voids 1 2 - Exam Pleasant 57-year-old male who does have obesity but seems to be comfortable at this time HEENT: Anicteric conjunctiva are pink and moist nasal mucosa grossly intact without significant lesions, there is no thrush. Neck: The neck is supple without significant lymphadenopathy or thyromegaly. Lungs: Symmetrical air entry with evidence of scattered wheezes but no bronchial sounds are heard Heart: Regular rate and rhythm with an audible S1-S2, no S3 soft S4. There is no significant murmur click or rub, PMI was nondisplaced. Abdomen: Positive bowel sounds soft and nontender without palpable masses or organomegaly. There was no guarding or rebound. Extremities: The upper extremities have excellent pulses they are symmetric, no significant petechiae or telangiectasia. No splinter hemorrhages were noted. The lower extremities show evidence of the significant changes to the left foot. There is evidence of swelling to the foot, erythema to the foot in the distal leg. There is evidence of the amputation of the fifth left toe. The foot is warm to touch. No other ulcers are seen on either lower extremity. Femoral pulses are easily palpable bilaterally. No lymphadenopathy is noted to the left inguinal area. No other abnormal lymph nodes are noted at this time. Neuro: Awake alert oriented to person place and time. There are no acute new gross focal sensory motor deficits. Has distinctly intact sensation over the toes of the left foot. - Labs CBC & Chem 7: 06/16/17 10:48 06/16/17 10:48 Labs: Abnormal Lab Results - Last 24 Hours (Table) 06/16/17 06/17/17 06/17/17 Range/Units 10:48 06:59 12:36 POC Glucose (mg/dL) 140 H 196 H (75-99) mg/dL Hemoglobin A1c 11.7 H (4.2-6.1) % 06/17/17 06/17/17 06/17/17 Range/Units 16:55 18:18 20:55 POC Glucose (mg/dL) 120 H 104 H 194 H (75-99) mg/dL Hemoglobin A1c (4.2-6.1) % Microbiology - Last 24 Hours (Table) 06/16/17 14:57 Blood Culture - Preliminary Blood No Growth after 24 hours 06/16/17 10:48 Blood Culture - Preliminary Blood No Growth after 24 hours 06/16/17 12:11 Gram Stain - Preliminary Toe - Left Fifth Wound Culture - Preliminary Strep agalactiae - (group b) Gram Neg Bacilli Laboratory Results WBC 10.5 k/uL (3.8-10.6) 06/16/17 10:48 RBC 4.08 m/uL (4.30-5.90) L 06/16/17 10:48 Hgb 12.9 gm/dL (13.0-17.5) L 06/16/17 10:48 Hct 38.2 % (39.0-53.0) L 06/16/17 10:48 MCV 93.6 fL (80.0-100.0) 06/16/17 10:48 MCH 31.6 pg (25.0-35.0) 06/16/17 10:48 MCHC 33.8 g/dL (31.0-37.0) 06/16/17 10:48 RDW 13.7 % (11.5-15.5) 06/16/17 10:48 Plt Count 370 k/uL (150-450) 06/16/17 10:48 Neutrophils % 73 % 06/16/17 10:48 Lymphocytes % 17 % 06/16/17 10:48 Monocytes % 6 % 06/16/17 10:48 Eosinophils % 2 % 06/16/17 10:48 Basophils % 0 % 06/16/17 10:48 Neutrophils # 7.7 k/uL (1.3-7.7) 06/16/17 10:48 Lymphocytes # 1.7 k/uL (1.0-4.8) 06/16/17 10:48 Monocytes # 0.6 k/uL (0-1.0) 06/16/17 10:48 Eosinophils # 0.2 k/uL (0-0.7) 06/16/17 10:48 Basophils # 0.1 k/uL (0-0.2) 06/16/17 10:48 PT 10.4 sec (9.0-12.0) 06/16/17 10:48 INR 1.0 (<1.2) 06/16/17 10:48 APTT 27.9 sec (22.0-30.0) 06/16/17 10:48 Sodium 135 mmol/L (137-145) L 06/16/17 10:48 Potassium 5.3 mmol/L (3.5-5.1) H 06/16/17 10:48 Chloride 100 mmol/L (98-107) 06/16/17 10:48 Carbon Dioxide 22 mmol/L (22-30) 06/16/17 10:48 Anion Gap 13 mmol/L 06/16/17 10:48 BUN 19 mg/dL (9-20) 06/16/17 10:48 Creatinine 0.90 mg/dL (0.66-1.25) 06/16/17 10:48 Est GFR (MDRD) Af Amer >60 (>60 ml/min/1.73 sqM) 06/16/17 10:48 Est GFR (MDRD) Non-Af >60 (>60 ml/min/1.73 sqM) 06/16/17 10:48 Glucose 288 mg/dL (74-99) H 06/16/17 10:48 POC Glucose (mg/dL) 194 mg/dL (75-99) H 06/17/17 20:55 POC Glu Loan Analyst ID Nikki Mejía 06/17/17 20:[address] Glu mg/dL 289 mg/dL 06/16/17 10:48 Hemoglobin A1c 11.7 % (4.2-6.1) H 06/16/17 10:48 Lactic Ac Sepsis Rflx Y 06/16/17 11:17 Plasma Lactic Acid Beltran 1.5 mmol/L (0.7-2.0) 06/16/17 14:57 Calcium 9.7 mg/dL (8.4-10.2) 06/16/17 10:48 Total Bilirubin 0.5 mg/dL (0.2-1.3) 06/16/17 10:48 AST 23 U/L (17-59) 06/16/17 10:48 ALT 37 U/L (21-72) 06/16/17 10:48 Alkaline Phosphatase 140 U/L (38-126) H 06/16/17 10:48 Total Protein 7.3 g/dL (6.3-8.2) 06/16/17 10:48 Albumin 4.0 g/dL (3.5-5.0) 06/16/17 10:48 Microbiology 06/16/17 14:57 Blood Blood Culture - Preliminary No Growth after 24 hours 06/16/17 10:48 Blood Blood Culture - Preliminary No Growth after 24 hours 06/16/17 12:11 Toe - Left Fifth Gram Stain - Preliminary 06/16/17 12:11 Toe - Left Fifth Wound Culture - Preliminary Strep agalactiae - (group b) Gram Neg Bacilli Assessment and Plan (1) Osteomyelitis of toe Status: Acute (2) Diabetic ulcer of left foot associated with diabetes mellitus due to underlying condition, with necrosis of bone Narrative/Plan: 57-year-old male with a several year history of diabetes mellitus type 2 and obesity presents with somewhat sudden onset of gangrenous change to his left fifth toe. He believes it started as a blister from an ill fitting shoe. Despite ongoing care for at home he is now developed evidence of a gangrenous changes to the toe. Vascular surgery consult is in progress and await their evaluation as to the patient's vascular status need for any workup before proceeding to the amputation of that fifth distal toe. Given his diabetes antimicrobial therapy with piperacillin tazobactam and vancomycin area process pending culture results. Fortunately the patient is a 30 stopped smoking We'll need to offload that foot We'll follow the wound healing center after discharge Multivitamin with zinc is requested Ensure there is adequate protein intake Enhance his glucose control We discussed the markedly elevated hemoglobin A1c and his need for dietary counseling and nutritional improvement. Will likely need insulin therapy at discharge. Given that the toe was then amputated will not need outpatient intravenous antibiotic therapy but a course of oral antibiotic therapy will be indicated at the time of discharge. He will need close follow-up in the outpatient setting in the diabetic shoes and appropriate inserts for offloading of that site. 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 Status: Acute
[2017-06-18] MEDS: KETOROLAC 30 MG/ML 1 ML VIAL IVP PRN ×3 (01:05→18:39)
[2017-06-18] MEDS: HYDROcodone/APAP 5-325MG 1 EACH TAB PO PRN ×3 (01:05→22:08)
[2017-06-18] MEDS: PIPERACILLIN-TAZOBACTAM 3.375 GM in DEXTROSE/WATER 1 50ML.BAG IVPB SCH ×3 (03:21→17:28)
[2017-06-18 07:23] LABS: Glucose,Whole Blood 156 mg/dL (75-99)
--- NOTE | 2017-06-18 07:40 | OP ---
OPERATIVE REPORT PREOPERATIVE DIAGNOSIS: Gangrene left foot, fifth toe. OPERATION: Amputation of the left foot, big toe. ANESTHESIA: Local IV sedation. Patient was brought to the operating room. Left foot was prepped and draped in the usual manner. A circular incision was made at the base of the 5th toe. Deepened through skin, fat, and fascia. Plantar and dorsal tendons were divided until we reached the proximal phalanx and using a bone cutter, we divided and after that, specimen was removed and wound was irrigated with saline and bleeding under control and pressure was applied proximally; 3-0 Vicryl and skin was closed with 3-0 mattress interrupted suture. Dressing applied. Patient tolerated the procedure well. Postop in recovery room in satisfactory condition. MMODL / IJN: [id number] /
[2017-06-18] MEDS: glipiZIDE 10 MG TAB PO SCH ×2 (07:57→17:27)
[2017-06-18] MEDS: INSULIN LISPRO (humaLOG) 300 UNIT/3 ML VIAL SQ SCH ×4 (07:57→22:09)
[2017-06-18] MEDS: ESCITALOPRAM 20 MG TAB PO SCH (07:57)
[2017-06-18] MEDS: ATENOLOL 25 MG TAB PO SCH (07:57)
[2017-06-18] MEDS: metFORMIN 500 MG TAB PO SCH ×2 (07:58→22:09)
[2017-06-18] MEDS: LISINOPRIL-HCTZ 20-12.5 MG 1 EACH TAB PO SCH (07:58)
[2017-06-18] MEDS: LINAGLIPTIN 5 MG TABLET PO SCH (07:58)
[2017-06-18] MEDS: HEPARIN SODIUM,PORCINE 5,000 UNIT/ML 1 ML VIAL SQ SCH ×2 (07:58→22:09)
[2017-06-18] MEDS: ALPRAZolam 0.5 MG TAB PO PRN (08:04)
[2017-06-18 08:38] LABS: Basophils # (A) 0.1 k/uL (0-0.2); Basophils % (A) 1 %; CH 32.1; CHCM 33.5; Eosinophils # (A) 0.2 k/uL (0-0.7); Eosinophils % (A) 2 %; HCT 33.9 % (39.0-53.0); HDW 2.92; HGB 10.9 gm/dL (13.0-17.5); Luc # (Auto) 0.13; Luc % (Auto) 2; Lymphocytes # (A) 1.4 k/uL (1.0-4.8); Lymphocytes % (A) 17 %; MCHC 32.1 g/dL (31.0-37.0); MCV 96.6 fL (80.0-100.0); Mean Platelet Volume 7.4; Monocytes # (A) 0.6 k/uL (0-1.0); Monocytes % (A) 7 %; Neutrophils # (A) 6.3 k/uL (1.3-7.7); Neutrophils % (A) 73 %; RDW 14.6 % (11.5-15.5); WBC 8.6 k/uL (3.8-10.6); WBC (Perox) 8.72
[2017-06-18 08:53] LABS: Anion Gap 9 mmol/L; Blood Urea Nitrogen 22 mg/dL (9-20); Calcium 8.5 mg/dL (8.4-10.2); Carbon Dioxide 26 mmol/L (22-30); Chloride 102 mmol/L (98-107); Glucose 153 mg/dL (74-99); Non-African American GFR(MDRD) 58 (>60 ml/min/1.73 sqM); Potassium 5.1 mmol/L (3.5-5.1); Sodium 137 mmol/L (137-145)
[2017-06-18] MEDS: VANCOMYCIN 1,750 MG in SODIUM CHLORIDE 0.9% 250 ML IVPB SCH ×2 (10:32→22:11)
[2017-06-18 12:21] LABS: Glucose,Whole Blood 171 mg/dL (75-99)
[2017-06-18] MEDS: MULTIVITAMINS, THERA 1 EACH TAB PO SCH (12:34)
[2017-06-18 13:52] VITALS: BMI 36.1
[2017-06-18 17:13] LABS: Glucose,Whole Blood 175 mg/dL (75-99)
--- NOTE | 2017-06-18 19:13 | PN ---
PROGRESS NOTE DATE OF SERVICE: 06/18/2017 INTERVAL HISTORY: This 57-year-old gentleman who was admitted with acute left toe infection also had features of diabetes mellitus. Patient underwent amputation of the left foot 5th toe by Dr. Irby. No chest pain. No palpitations. No fever. PHYSICAL EXAM: Alert and oriented times three. Pulse is 92, blood pressure 144/82, respiration 18, temperature 97.2, pulse ox 98% on room air. HEENT: Conjunctivae normal. Neck: No jugular venous distention. Cardiovascular: S1, S2 muffled. Respiratory: Breath sounds diminished at the bases. A few scattered rhonchi. No crackles. Abdomen is soft, nontender. No mass palpable. Legs status post surgery_. Central nervous system: No focal deficits. LABORATORY DATA: Creatinine is 1.29, hemoglobin 10.9. ASSESSMENT: 1. Acute left toe infection with diabetic foot with osteomyelitis with possibly early sepsis status post left fifth toe amputation. 2. Diabetes type 2. 3. History of diabetic peripheral neuropathy. 4. Hyponatremia. 5. Hypokalemia. 6. Hypertension. 7. Hyperlipidemia. 8. History of Fowler's palsy. 9. History of anxiety. RECOMMENDATIONS AND DISCUSSION: Continue current medications, continue with monitoring, symptomatic treatment. Closely monitor. Monitor blood sugars closely. I would recommend continue with Lantus and actually increase Lantus to 20 units and continue to monitor. Otherwise we will monitor the patient closely and further recommendations to follow. MMODL / IJN: [id number] / MTDD
[2017-06-18] MEDS ORDERED: INSULIN GLARGINE 100 UNIT/ML 10 ML VIAL SQ SCH (21:00)
[2017-06-18 21:22] LABS: Glucose,Whole Blood 165 mg/dL (75-99)
--- NOTE | 2017-06-18 21:45 | P.PN ---
Subjective Progress Note Date: 06/18/17 Principal diagnosis: Left diabetic foot infection 57-year-old male with a long-standing history of diabetes mellitus type 2 and obesity relates that normally he does provide significant Criticare to his feet. He moisturizes feet, looks for wounds, and keeps his nails well trimmed. Relates that several weeks ago he had a new. Shoes. And after wearing the shoe he developed a blister on the left foot fifth toe. He treated it as he would in the past with topical therapy. The blisters seem to worsen a bit and constantly started utilizing topical antibiotic therapy as well as Epson salt soaks for healing. Despite the local ongoing care the toe continued to worsen. Eventually the tip the toe was turning black and he sought medical attention. He was admitted to hospital and has not been seen by vascular surgery and infectious diseases consultation was requested regarding the antibiotic therapy. This for a pleasant gentleman relates that he is somewhat fanatical about his feet inspecting them frequently and even inspects his shoes. He does relate that when he saw that the wound was worsening on that fifth toe that he was talking himself in that the process was not that bad and eventually the dark spot would fall off. His family also helped him make up his mind to come to hospital. He is denying high-grade fevers, chills or rigors. Is anxious about the toe. The patient is been seen by vascular surgery and is been taking the operating room for the amputation of the gangrenous fifth toe of the left foot. He is doing well postoperatively. No fevers or chills. We discussed his markedly elevated hemoglobin A1c. He is having some pain with the amputation today. Objective - Vital Signs Vital signs: Vital Signs Temp 97.0 F L 06/18/17 15:00 Pulse 92 06/18/17 15:00 Resp 18 06/18/17 15:00 BP 144/83 06/18/17 15:00 Pulse Ox 93 L 06/18/17 15:00 Intake & Output 06/18/17 06/18/17 06/19/17 06:59 18:59 06:59 Intake Total 925 Balance 925 Weight 111.13 kg Intake: Oral 925 Other: # Voids 1 4 - Exam Pleasant 57-year-old male who does have obesity but seems to be comfortable at this time HEENT: Anicteric conjunctiva are pink and moist nasal mucosa grossly intact without significant lesions, there is no thrush. Neck: The neck is supple without significant lymphadenopathy or thyromegaly. Lungs: Symmetrical air entry with evidence of scattered wheezes but no bronchial sounds are heard Heart: Regular rate and rhythm with an audible S1-S2, no S3 soft S4. There is no significant murmur click or rub, PMI was nondisplaced. Abdomen: Positive bowel sounds soft and nontender without palpable masses or organomegaly. There was no guarding or rebound. Extremities: The upper extremities have excellent pulses they are symmetric, no significant petechiae or telangiectasia. No splinter hemorrhages were noted. The lower extremities show evidence of the significant changes to the left foot. There is evidence of swelling to the foot, erythema to the foot in the distal leg. There is evidence of the amputation of the fifth left toe. The site is dry and intact. The swelling to the foot and ascending erythema have improved. The foot is warm to touch. No other ulcers are seen on either lower extremity. Femoral pulses are easily palpable bilaterally. No lymphadenopathy is noted to the left inguinal area. No other abnormal lymph nodes are noted at this time. Neuro: Awake alert oriented to person place and time. There are no acute new gross focal sensory motor deficits. Has distinctly intact sensation over the toes of the left foot. - Labs CBC & Chem 7: 06/18/17 07:13 06/18/17 07:13 Labs: Abnormal Lab Results - Last 24 Hours (Table) 06/18/17 06/18/17 06/18/17 Range/Units 07:13 07:13 07:20 RBC 3.50 L (4.30-5.90) m/uL Hgb 10.9 L (13.0-17.5) gm/dL Hct 33.9 L (39.0-53.0) % BUN 22 H (9-20) mg/dL Creatinine 1.29 H (0.66-1.25) mg/dL Glucose 153 H (74-99) mg/dL POC Glucose (mg/dL) 156 H (75-99) mg/dL 06/18/17 06/18/17 06/18/17 Range/Units 12:19 17:07 21:20 RBC (4.30-5.90) m/uL Hgb (13.0-17.5) gm/dL Hct (39.0-53.0) % BUN (9-20) mg/dL Creatinine (0.66-1.25) mg/dL Glucose (74-99) mg/dL POC Glucose (mg/dL) 171 H 175 H 165 H (75-99) mg/dL Microbiology - Last 24 Hours (Table) 06/16/17 14:57 Blood Culture - Preliminary Blood No Growth after 48 hours 06/16/17 12:11 Gram Stain - Preliminary Toe - Left Fifth Wound Culture - Preliminary Strep agalactiae - (group b) Presumptive Staph aureus Klebsiella oxytoca 06/16/17 10:48 Blood Culture - Preliminary Blood No Growth after 48 hours Laboratory Results WBC 8.6 k/uL (3.8-10.6) 06/18/17 07:13 RBC 3.50 m/uL (4.30-5.90) L 06/18/17 07:13 Hgb 10.9 gm/dL (13.0-17.5) L 06/18/17 07:13 Hct 33.9 % (39.0-53.0) L 06/18/17 07:13 MCV 96.6 fL (80.0-100.0) 06/18/17 07:13 MCH 31.0 pg (25.0-35.0) 06/18/17 07:13 MCHC 32.1 g/dL (31.0-37.0) 06/18/17 07:13 RDW 14.6 % (11.5-15.5) 06/18/17 07:13 Plt Count 334 k/uL (150-450) 06/18/17 07:13 Neutrophils % 73 % 06/18/17 07:13 Lymphocytes % 17 % 06/18/17 07:13 Monocytes % 7 % 06/18/17 07:13 Eosinophils % 2 % 06/18/17 07:13 Basophils % 1 % 06/18/17 07:13 Neutrophils # 6.3 k/uL (1.3-7.7) 06/18/17 07:13 Lymphocytes # 1.4 k/uL (1.0-4.8) 06/18/17 07:13 Monocytes # 0.6 k/uL (0-1.0) 06/18/17 07:13 Eosinophils # 0.2 k/uL (0-0.7) 06/18/17 07:13 Basophils # 0.1 k/uL (0-0.2) 06/18/17 07:13 PT 10.4 sec (9.0-12.0) 06/16/17 10:48 INR 1.0 (<1.2) 06/16/17 10:48 APTT 27.9 sec (22.0-30.0) 06/16/17 10:48 Sodium 137 mmol/L (137-145) 06/18/17 07:13 Potassium 5.1 mmol/L (3.5-5.1) 06/18/17 07:13 Chloride 102 mmol/L (98-107) 06/18/17 07:13 Carbon Dioxide 26 mmol/L (22-30) 06/18/17 07:13 Anion Gap 9 mmol/L 06/18/17 07:13 BUN 22 mg/dL (9-20) H 06/18/17 07:13 Creatinine 1.29 mg/dL (0.66-1.25) H 06/18/17 07:13 Est GFR (MDRD) Af Amer >60 (>60 ml/min/1.73 sqM) 06/18/17 07:13 Est GFR (MDRD) Non-Af 58 (>60 ml/min/1.73 sqM) 06/18/17 07:13 Glucose 153 mg/dL (74-99) H 06/18/17 07:13 POC Glucose (mg/dL) 165 mg/dL (75-99) H 06/18/17 21:20 POC Glu Reconciliation Accountant ID Marizol Oh 06/18/17 21:[address] Glu mg/dL 289 mg/dL 06/16/17 10:48 Hemoglobin A1c 11.7 % (4.2-6.1) H 06/16/17 10:48 Lactic Ac Sepsis Rflx Y 06/16/17 11:17 Plasma Lactic Acid Beltran 1.5 mmol/L (0.7-2.0) 06/16/17 14:57 Calcium 8.5 mg/dL (8.4-10.2) 06/18/17 07:13 Total Bilirubin 0.5 mg/dL (0.2-1.3) 06/16/17 10:48 AST 23 U/L (17-59) 06/16/17 10:48 ALT 37 U/L (21-72) 06/16/17 10:48 Alkaline Phosphatase 140 U/L (38-126) H 06/16/17 10:48 Total Protein 7.3 g/dL (6.3-8.2) 06/16/17 10:48 Albumin 4.0 g/dL (3.5-5.0) 06/16/17 10:48 Microbiology 06/16/17 14:57 Blood Blood Culture - Preliminary No Growth after 48 hours 06/16/17 12:11 Toe - Left Fifth Gram Stain - Preliminary 06/16/17 12:11 Toe - Left Fifth Wound Culture - Preliminary Strep agalactiae - (group b) Presumptive Staph aureus Klebsiella oxytoca 06/16/17 10:48 Blood Blood Culture - Preliminary No Growth after 48 hours Assessment and Plan (1) Osteomyelitis of toe Status: Acute (2) Diabetic ulcer of left foot associated with diabetes mellitus due to underlying condition, with necrosis of bone Narrative/Plan: 57-year-old male with a several year history of diabetes mellitus type 2 and obesity presents with somewhat sudden onset of gangrenous change to his left fifth toe. He believes it started as a blister from an ill fitting shoe. Despite ongoing care for at home he is now developed evidence of a gangrenous changes to the toe. Vascular surgery consult is in progress and await their evaluation as to the patient's vascular status need for any workup before proceeding to the amputation of that fifth distal toe. Given his diabetes antimicrobial therapy with piperacillin tazobactam and vancomycin area process pending culture results. Fortunately the patient is a 30 stopped smoking We'll need to offload that foot We'll follow the wound healing center after discharge Multivitamin with zinc is requested Ensure there is adequate protein intake Enhance his glucose control We discussed the markedly elevated hemoglobin A1c and his need for dietary counseling and nutritional improvement. Will likely need insulin therapy at discharge. Given that the toe was amputated will not need outpatient intravenous antibiotic therapy but a course of oral antibiotic therapy will be indicated at the time of discharge. At this time Augmentin should be an adequate choice to complete his course of oral antibiotic therapy. He will need close follow-up in the outpatient setting in the diabetic shoes and appropriate inserts for offloading of that site. 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 Status: Acute
[2017-06-18] MEDS: ATORVASTATIN 80 MG TAB PO SCH (22:08)
[2017-06-19] MEDS: PIPERACILLIN-TAZOBACTAM 3.375 GM in DEXTROSE/WATER 1 50ML.BAG IVPB SCH ×2 (03:27→12:24)
[2017-06-19] MEDS: glipiZIDE 10 MG TAB PO SCH (07:52)
[2017-06-19] MEDS: HEPARIN SODIUM,PORCINE 5,000 UNIT/ML 1 ML VIAL SQ SCH (07:53)
[2017-06-19] MEDS: metFORMIN 500 MG TAB PO SCH (07:53)
[2017-06-19] MEDS: LINAGLIPTIN 5 MG TABLET PO SCH (07:53)
[2017-06-19] MEDS: ATENOLOL 25 MG TAB PO SCH (07:53)
[2017-06-19] MEDS: ESCITALOPRAM 20 MG TAB PO SCH (07:53)
[2017-06-19] MEDS: INSULIN LISPRO (humaLOG) 300 UNIT/3 ML VIAL SQ SCH ×2 (07:53→12:52)
[2017-06-19] MEDS: LISINOPRIL-HCTZ 20-12.5 MG 1 EACH TAB PO SCH (07:53)
[2017-06-19] MEDS: ALPRAZolam 0.5 MG TAB PO PRN (07:57)
[2017-06-19 08:00] LABS: Glucose,Whole Blood 108 mg/dL (75-99)
[2017-06-19 08:18] VITALS: BP 174/86; PULSE 78; RESP 16; TEMP 97.6
[2017-06-19] MEDS ORDERED: VANCOMYCIN TROUGH DUE 1 EACH MISC MISCELLANE ONE (09:00)
[2017-06-19] MEDS: VANCOMYCIN 1,750 MG in SODIUM CHLORIDE 0.9% 250 ML IVPB SCH (09:33)
[2017-06-19 09:52] LABS: Basophils % (A) 0 %; CH 32.4; CHCM 33.9; Eosinophils # (A) 0.2 k/uL (0-0.7); Eosinophils % (A) 2 %; HCT 37.1 % (39.0-53.0); HDW 2.91; HGB 11.2 gm/dL (13.0-17.5); Luc # (Auto) 0.11; Luc % (Auto) 1; Lymphocytes # (A) 1.3 k/uL (1.0-4.8); Lymphocytes % (A) 15 %; MCHC 30.1 g/dL (31.0-37.0); MCV 96.1 fL (80.0-100.0); Monocytes # (A) 0.5 k/uL (0-1.0); Monocytes % (A) 6 %; Neutrophils # (A) 6.3 k/uL (1.3-7.7); Neutrophils % (A) 76 %; RBC 3.86 m/uL (4.30-5.90); RDW 14.7 % (11.5-15.5); WBC 8.4 k/uL (3.8-10.6); WBC (Perox) 8.03
[2017-06-19 10:11] LABS: Anion Gap 10 mmol/L; Blood Urea Nitrogen 24 mg/dL (9-20); Carbon Dioxide 25 mmol/L (22-30); Chloride 102 mmol/L (98-107); Glucose 181 mg/dL (74-99); Non-African American GFR(MDRD) >60 (>60 ml/min/1.73 sqM); Potassium 4.6 mmol/L (3.5-5.1); Sodium 137 mmol/L (137-145)
[2017-06-19] MEDS: MULTIVITAMINS, THERA 1 EACH TAB PO SCH (12:24)
[2017-06-19 12:54] LABS: Glucose,Whole Blood 126 mg/dL (75-99)
[2017-06-19] MEDS ORDERED: INFLUENZA VACCINE (6 MOS+) 60 MCG/0.5 ML SYRINGE IM ONE (13:23)
--- NOTE | 2017-06-19 15:55 | P.DS ---
Providers Date of admission: 06/16/17 12:07 Attending physician: Malissa Corbett Consults: 06/16/17 12:07 Consult Physician Urgent Consulting Provider: Te Mustafa Consult Reason/Comments: Osteomyelitis Do you want consulting provider notified?: Yes Consult Physician Urgent Consulting Provider: Sandoval Irby Consult Reason/Comments: Necrotic toe Do you want consulting provider notified?: Yes [facility] Course: This 57-year-old gentleman with a past medical history multiple medical problems admitted with acute left little toe infection and osteomyelitis and delete diabetic foot. Patient was treated with IV antibiotics. Dr. Mustafa and Dr. Irby saw the patient. Patient underwent a left little toe amputation by Dr. Irby. Cultures show MSSA strep agalactiae and as well as Klebsiella at this time. Patient improved significantly. Of note the hemoglobin A1c was found to be elevated at 11. Recommended. Small dose of insulin for better control. A new glucometer has been arranged. [facility] as Dr. Levine with the diabetic floor chart and continued follow-up. Outpatient diabetic indications also suggested. Special diabetic orthotic shoes were also recommended. On exam vitals are stable. Cardio S1 and S2 normal. Respirator system clear to oscillation. Abdomen soft nontender. Status post surgery. Patient be discharged in a stable condition with guarded prognosis. Total time taken 35 minutes. Final diagnoses 1. Acute left little toe infection with the diabetic foot with osteomyelitis with the possible early sepsis present on admission status post left fifth toe amputation. 2. Diabetes was type II. 3. History of diabetic neuropathy. 4. Hyponatremia. 5. Hypokalemia. 6. Hypertension. 7. Hyperlipidemia. 8. History of Fowler's palsy. Plan - Discharge Summary New Discharge Prescriptions: New Amoxicillin/Potassium Clav [Augmentin 875-125 Tablet] 1 tab PO Q12HR #14 tab Insulin Glargine [Lantus] 20 unit SQ HS #1 vial Continue Atorvastatin [Lipitor] 80 mg PO HS Atenolol 25 mg PO QAM Multivitamins, Thera [Multivitamin (formulary)] 1 tab PO DAILY Lisinopril-Hctz 20-12.5 mg [Zestoretic 20-12.5] 1 tab PO DAILY Escitalopram [Lexapro] 20 mg PO QAM glipiZIDE [Glucotrol] 20 mg PO AC-BID metFORMIN HCL 1,000 mg PO BID ALPRAZolam [Xanax] 1 mg PO DAILY Saxagliptin HCl [Onglyza] 5 mg PO DAILY Discharge Medication List Atenolol 25 mg PO QAM 08/15/16 [History] Atorvastatin [Lipitor] 80 mg PO HS 08/15/16 [History] Escitalopram [Lexapro] 20 mg PO QAM 08/15/16 [History] Lisinopril-Hctz 20-12.5 mg [Zestoretic 20-12.5] 1 tab PO DAILY 08/15/16 [History ] Multivitamins, Thera [Multivitamin (formulary)] 1 tab PO DAILY 08/15/16 [History ] glipiZIDE [Glucotrol] 20 mg PO AC-BID 08/15/16 [History] metFORMIN HCL 1,000 mg PO BID 08/15/16 [History] ALPRAZolam [Xanax] 1 mg PO DAILY 06/16/17 [History] Saxagliptin HCl [Onglyza] 5 mg PO DAILY 06/16/17 [History] Amoxicillin/Potassium Clav [Augmentin 875-125 Tablet] 1 tab PO Q12HR #14 tab 12/30 [Rx] Insulin Glargine [Lantus] 20 unit SQ HS #1 vial 06/19/17 [Rx] Follow up Appointment(s)/Referral(s): Sandoval Irby MD [STAFF PHYSICIAN] - 06/26/17 Simon Salguero DO [Primary Care Provider] - 1-2 days Patient Instructions/Handouts: Diabetic Foot Ulcers (DC) Activity/Diet/Wound Care/Special Instructions: Dry dressing to left foot. Change daily. Ok to ambulate. Keep weight off toes. Walk on heel Diet consistent carb Activity Limited until follow up Accu-Cheks before meals and at bedtime and physical [facility]. Continue with insulin injections. Discharge Disposition: HOME SELF-CARE
--- NOTE | 2017-06-19 20:07 | P.PN ---
Subjective Progress Note Date: 06/19/17 Principal diagnosis: Left diabetic foot infection 57-year-old male with a long-standing history of diabetes mellitus type 2 and obesity relates that normally he does provide significant Criticare to his feet. He moisturizes feet, looks for wounds, and keeps his nails well trimmed. Relates that several weeks ago he had a new. Shoes. And after wearing the shoe he developed a blister on the left foot fifth toe. He treated it as he would in the past with topical therapy. The blisters seem to worsen a bit and constantly started utilizing topical antibiotic therapy as well as Epson salt soaks for healing. Despite the local ongoing care the toe continued to worsen. Eventually the tip the toe was turning black and he sought medical attention. He was admitted to hospital and has not been seen by vascular surgery and infectious diseases consultation was requested regarding the antibiotic therapy. This for a pleasant gentleman relates that he is somewhat fanatical about his feet inspecting them frequently and even inspects his shoes. He does relate that when he saw that the wound was worsening on that fifth toe that he was talking himself in that the process was not that bad and eventually the dark spot would fall off. His family also helped him make up his mind to come to hospital. He is denying high-grade fevers, chills or rigors. Is anxious about the toe. The patient is been seen by vascular surgery and is been taking the operating room for the amputation of the gangrenous fifth toe of the left foot. He is doing well postoperatively. No fevers or chills. We discussed his markedly elevated hemoglobin A1c. He is having some pain related to the amputation but it is well tolerated. Objective - Vital Signs Vital signs: Vital Signs Temp 97.6 F 06/19/17 07:00 Pulse 78 06/19/17 07:00 Resp 16 06/19/17 07:00 BP 174/86 06/19/17 07:00 Pulse Ox 95 06/19/17 07:00 Intake & Output 06/19/17 06/19/17 06/20/17 06:59 18:59 06:59 Other: # Voids 1 - Exam Pleasant 57-year-old male who does have obesity but seems to be comfortable at this time HEENT: Anicteric conjunctiva are pink and moist nasal mucosa grossly intact without significant lesions, there is no thrush. Neck: The neck is supple without significant lymphadenopathy or thyromegaly. Lungs: Symmetrical air entry with evidence of scattered wheezes but no bronchial sounds are heard Heart: Regular rate and rhythm with an audible S1-S2, no S3 soft S4. There is no significant murmur click or rub, PMI was nondisplaced. Abdomen: Positive bowel sounds soft and nontender without palpable masses or organomegaly. There was no guarding or rebound. Extremities: The upper extremities have excellent pulses they are symmetric, no significant petechiae or telangiectasia. No splinter hemorrhages were noted. The lower extremities show evidence of the significant changes to the left foot. There is evidence of swelling to the foot, erythema to the foot in the distal leg. There is evidence of the amputation of the fifth left toe. The site is dry and intact. The swelling to the foot and ascending erythema have improved. The foot is warm to touch. No other ulcers are seen on either lower extremity. Femoral pulses are easily palpable bilaterally. No lymphadenopathy is noted to the left inguinal area. No other abnormal lymph nodes are noted at this time. Neuro: Awake alert oriented to person place and time. There are no acute new gross focal sensory motor deficits. Has distinctly intact sensation over the toes of the left foot. - Labs CBC & Chem 7: 06/19/17 09:28 06/19/17 09:28 Labs: Abnormal Lab Results - Last 24 Hours (Table) 06/18/17 06/19/17 06/19/17 Range/Units 21:20 07:40 09:28 RBC 3.86 L (4.30-5.90) m/uL Hgb 11.2 L (13.0-17.5) gm/dL Hct 37.1 L (39.0-53.0) % MCHC 30.1 L (31.0-37.0) g/dL BUN (9-20) mg/dL Glucose (74-99) mg/dL POC Glucose (mg/dL) 165 H 108 H (75-99) mg/dL 06/19/17 06/19/17 Range/Units 09:28 12:50 RBC (4.30-5.90) m/uL Hgb (13.0-17.5) gm/dL Hct (39.0-53.0) % MCHC (31.0-37.0) g/dL BUN 24 H (9-20) mg/dL Glucose 181 H (74-99) mg/dL POC Glucose (mg/dL) 126 H (75-99) mg/dL Microbiology - Last 24 Hours (Table) 06/16/17 14:57 Blood Culture - Preliminary Blood No Growth after 72 hours 06/16/17 12:11 Gram Stain - Final Toe - Left Fifth Wound Culture - Final Strep agalactiae - (group b) Staphylococcus aureus Klebsiella oxytoca 06/16/17 10:48 Blood Culture - Preliminary Blood No Growth after 72 hours Laboratory Results WBC 8.4 k/uL (3.8-10.6) 06/19/17 09:28 RBC 3.86 m/uL (4.30-5.90) L 06/19/17 09:28 Hgb 11.2 gm/dL (13.0-17.5) L 06/19/17 09:28 Hct 37.1 % (39.0-53.0) L 06/19/17 09:28 MCV 96.1 fL (80.0-100.0) 06/19/17 09:28 MCH 29.0 pg (25.0-35.0) 06/19/17 09:28 MCHC 30.1 g/dL (31.0-37.0) L 06/19/17 09:28 RDW 14.7 % (11.5-15.5) 06/19/17 09:28 Plt Count 345 k/uL (150-450) 06/19/17 09:28 Neutrophils % 76 % 06/19/17 09:28 Lymphocytes % 15 % 06/19/17 09:28 Monocytes % 6 % 06/19/17 09:28 Eosinophils % 2 % 06/19/17 09:28 Basophils % 0 % 06/19/17 09:28 Neutrophils # 6.3 k/uL (1.3-7.7) 06/19/17 09:28 Lymphocytes # 1.3 k/uL (1.0-4.8) 06/19/17 09:28 Monocytes # 0.5 k/uL (0-1.0) 06/19/17 09:28 Eosinophils # 0.2 k/uL (0-0.7) 06/19/17 09:28 Basophils # 0.0 k/uL (0-0.2) 06/19/17 09:28 PT 10.4 sec (9.0-12.0) 06/16/17 10:48 INR 1.0 (<1.2) 06/16/17 10:48 APTT 27.9 sec (22.0-30.0) 06/16/17 10:48 Sodium 137 mmol/L (137-145) 06/19/17 09:28 Potassium 4.6 mmol/L (3.5-5.1) 06/19/17 09:28 Chloride 102 mmol/L (98-107) 06/19/17 09:28 Carbon Dioxide 25 mmol/L (22-30) 06/19/17 09:28 Anion Gap 10 mmol/L 06/19/17 09:28 BUN 24 mg/dL (9-20) H 06/19/17 09:28 Creatinine 1.17 mg/dL (0.66-1.25) 06/19/17 09:28 Est GFR (MDRD) Af Amer >60 (>60 ml/min/1.73 sqM) 06/19/17 09:28 Est GFR (MDRD) Non-Af >60 (>60 ml/min/1.73 sqM) 06/19/17 09:28 Glucose 181 mg/dL (74-99) H 06/19/17 09:28 POC Glucose (mg/dL) 126 mg/dL (75-99) H 06/19/17 12:50 POC Glu Warranty Manager ID Louise Carty 06/19/17 12:[address] Glu mg/dL 289 mg/dL 06/16/17 10:48 Hemoglobin A1c 11.7 % (4.2-6.1) H 06/16/17 10:48 Lactic Ac Sepsis Rflx Y 06/16/17 11:17 Plasma Lactic Acid Beltran 1.5 mmol/L (0.7-2.0) 06/16/17 14:57 Calcium 9.0 mg/dL (8.4-10.2) 06/19/17 09:28 Total Bilirubin 0.5 mg/dL (0.2-1.3) 06/16/17 10:48 AST 23 U/L (17-59) 06/16/17 10:48 ALT 37 U/L (21-72) 06/16/17 10:48 Alkaline Phosphatase 140 U/L (38-126) H 06/16/17 10:48 Total Protein 7.3 g/dL (6.3-8.2) 06/16/17 10:48 Albumin 4.0 g/dL (3.5-5.0) 06/16/17 10:48 Vancomycin Trough 21.7 ug/mL 06/19/17 09:28 Microbiology 06/16/17 14:57 Blood Blood Culture - Preliminary No Growth after 72 hours 06/16/17 12:11 Toe - Left Fifth Gram Stain - Final 06/16/17 12:11 Toe - Left Fifth Wound Culture - Final Strep agalactiae - (group b) Staphylococcus aureus Klebsiella oxytoca 06/16/17 10:48 Blood Blood Culture - Preliminary No Growth after 72 hours Assessment and Plan (1) Osteomyelitis of toe Status: Acute (2) Diabetic ulcer of left foot associated with diabetes mellitus due to underlying condition, with necrosis of bone Narrative/Plan: 57-year-old male with a several year history of diabetes mellitus type 2 and obesity presents with somewhat sudden onset of gangrenous change to his left fifth toe. He believes it started as a blister from an ill fitting shoe. Despite ongoing care for at home he is now developed evidence of a gangrenous changes to the toe. Vascular surgery consult is in progress and await their evaluation as to the patient's vascular status need for any workup before proceeding to the amputation of that fifth distal toe. Given his diabetes antimicrobial therapy with piperacillin tazobactam and vancomycin area process pending culture results. Fortunately the patient is a 30 stopped smoking We'll need to offload that foot We'll follow the wound healing center after discharge Multivitamin with zinc is requested Ensure there is adequate protein intake Enhance his glucose control We discussed the markedly elevated hemoglobin A1c and his need for dietary counseling and nutritional improvement. Will likely need insulin therapy at discharge. Given that the toe was amputated will not need outpatient intravenous antibiotic therapy but a course of oral antibiotic therapy will be indicated at the time of discharge. At this time Augmentin should be an adequate choice to complete his course of oral antibiotic therapy. A darco forefoot offloading shoe would be helpful. He will need close follow-up in the outpatient setting in the diabetic shoes and appropriate inserts for offloading of that site. 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 Status: Acute
== END 2017-06-19 14:21 | disposition home or self-care (01) | DRG 854 ==
LOC: EC 09:48 → 4MS4W 12:07
PROVIDERS: ADMIT Hospitalist; ATTEND Hospitalist
PROC: 0Y6Y0Z0 Detachment at Left 5th Toe, Complete, Open Approach (ICD-10-PCS; principal; 2017-06-17 09:55)
DX: A41.9 Sepsis, unspecified organism (principal); M86.9 Osteomyelitis, unspecified; E11.52 Type 2 diabetes mellitus with diabetic peripheral angiopathy with gangrene; E11.42 Type 2 diabetes mellitus with diabetic polyneuropathy; E87.1 Hypo-osmolality and hyponatremia; E11.628 Type 2 diabetes mellitus with other skin complications; E87.5 Hyperkalemia; L97.529 Non-pressure chronic ulcer of other part of left foot with unspecified severity; E11.621 Type 2 diabetes mellitus with foot ulcer; I10 Essential (primary) hypertension; E11.69 Type 2 diabetes mellitus with other specified complication; E78.5 Hyperlipidemia, unspecified; F41.9 Anxiety disorder, unspecified; G51.0 Bell's palsy; E87.6 Hypokalemia; G47.00 Insomnia, unspecified; B95.5 Unspecified streptococcus as the cause of diseases classified elsewhere; B95.61 Methicillin susceptible Staphylococcus aureus infection as the cause of diseases classified elsewhere; B96.1 Klebsiella pneumoniae [K. pneumoniae] as the cause of diseases classified elsewhere; E66.9 Obesity, unspecified; Z90.49 Acquired absence of other specified parts of digestive tract; Z79.899 Other long term (current) drug therapy; Z83.3 Family history of diabetes mellitus; Z87.891 Personal history of nicotine dependence; Z79.84 Long term (current) use of oral hypoglycemic drugs
CPT/HCPCS: 36415; 78315; 80048; 80053; 80202; 83036; 83605; 85025; 85610; 85730; 87040; 87070; 87077; 87186; 87205; 88305; 88311; 90686; 96361; 96365; 96366; 96375; 99284

== ENCOUNTER 2017-10-17 08:44 | Emergency (ER) | payer OTHER ==
[2017-10-17 08:50] VITALS: RESP 18; TEMP 97.6
[2017-10-17] MEDS ORDERED: PROPARACAINE 0.5% OPHTH DROPS 15 ML BTL RIGHT EYE STA (09:22)
--- NOTE | 2017-10-17 10:35 | ED ---
General Adult HPI - General Chief complaint: ENT Stated complaint: RT EYE PAIN Time Seen by Provider: 10/17/17 09:16 Source: patient, RN notes reviewed Mode of arrival: ambulatory Limitations: no limitations - History of Present Illness Initial comments: Patient is a 57-year-old male who presents emergency room today with a chief complaint of an irritation to the right eye. He states he woke up feeling like there was something in his right eye. He states he try to flush out. He states he tried to go to work as [employer] reveals was looking inside see if there is an eyelash or something. He states is like any better so he came here to the emergency room. He states he's had increased watery discharge and a foreign body sensation. Denies any specific injury or trauma to the area. Patient denies any other complaints. - Related Data Home Medications Medication Instructions Recorded Confirmed Atenolol 25 mg PO QAM 08/15/16 10/17/17 Atorvastatin [Lipitor] 80 mg PO HS 08/15/16 10/17/17 Escitalopram [Lexapro] 20 mg PO QAM 08/15/16 10/17/17 Lisinopril-Hctz 20-12.5 mg 1 tab PO DAILY 08/15/16 10/17/17 [Zestoretic 20-12.5] Multivitamins, Thera [Multivitamin 1 tab PO DAILY 08/15/16 10/17/17 (formulary)] glipiZIDE [Glucotrol] 20 mg PO AC-BID 08/15/16 10/17/17 metFORMIN HCL 1,000 mg PO BID 08/15/16 10/17/17 ALPRAZolam [Xanax] 1 mg PO DAILY 06/16/17 10/17/17 Saxagliptin HCl [Onglyza] 5 mg PO DAILY 06/16/17 10/17/17 Insulin Glargine [Lantus] 22 unit SQ HS 10/17/17 10/17/17 Previous Rx's Medication Instructions Recorded Tobramycin 0.3% Ophth Soln [Tobrex 1 - 2 drop BOTH EYES Q4H 7 Days ml 10/17/17 0.3% Ophth Soln] Allergies Allergy/AdvReac Type Severity Reaction Status Date / Time No Known Allergies Allergy Verified 10/17/17 09:25 Review of Systems ROS Statement: Those systems with pertinent positive or pertinent negative responses have been documented in the HPI. ROS Other: All systems not noted in ROS Statement are negative. 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 History of Any Multi-Drug Resistant Organisms: None Reported Past Surgical History: Adenoidectomy, Tonsillectomy Additional Past Surgical History / Comment(s): Colonoscopy with benign polypectomies Past Anesthesia/Blood Transfusion Reactions: No Reported Reaction Past Psychological History: Anxiety Smoking Status: Former smoker Past Alcohol Use History: None Reported Past Drug Use History: Marijuana - Past Family History Father Family Medical History: Diabetes Mellitus Additional Family Medical History / Comment(s): Father had gallbladder disease. He is 77yrs old. Mother Family Medical History: Hyperlipidemia General Exam - General Exam Comments Initial Comments: General: The patient is awake and alert, in no distress, and does not appear acutely ill. Eye: Pupils are equal, round and reactive to light, extra-ocular movements are intact. No nystagmus. Mild tenderness to the right conjunctiva with watery clear discharge. Ears, nose, mouth and throat: There are moist mucous membranes and no oral lesions. Musculoskeletal: Normal ROM, no tenderness. Strength 5/5. Sensation intact. Pulses equal bilaterally 2+. Neurological: A&O x 3. CN II-XII intact, There are no obvious motor or sensory deficits. Coordination appears grossly intact. Speech is normal. Skin: Skin is warm and dry and no rashes or lesions are noted. Psychiatric: Cooperative, appropriate mood & affect, normal judgment. Limitations: no limitations Course Vital Signs 10/17/17 08:47 Temperature 97.6 F Pulse Rate 95 Respiratory 18 Rate Blood Pressure 147/79 O2 Sat by Pulse 98 Oximetry Procedures - Procedures Initial comment: Patient's right eye was anesthetized with proparacaine. This did improve his symptoms he is pain-free. Patient's right eye was then stained with forcing checked with Wood's lamp revealing small faint corneal abrasions centrally over the pupil running vertically measuring less than 0.25 cm each running parallel. Lids were inverted and there is no other foreign bodies appreciated. Medical Decision Making - Medical Decision Making Patient does have corneal abrasion on exam. Will be treated with antibiotic drops. He is ALLERGIC to tetanus. He is advised follow up with settlement technician in the next 2 days if any symptoms are still present. Advised to return here if symptoms are increasing worsen or any other concerns. Disposition Clinical Impression: Corneal abrasion Disposition: HOME SELF-CARE Condition: Good Instructions: Corneal Abrasion (ED) Additional Instructions: Please use antibiotic drops as prescribed follow-up with settlement technician in 2 days of symptoms have not improved. Please return to emergency room if any symptoms increase or worsen or for any other concerns. Prescriptions: Tobramycin 0.3% Ophth Soln [Tobrex 0.3% Ophth Soln] 1 - 2 drop BOTH EYES Q4H 7 Days ml Referrals: Simon Salguero DO [Primary Care Provider] - 1-2 days Parminder Thomas MD [STAFF PHYSICIAN] - 1-2 days Time of Disposition: 10:32
[2017-10-17 10:45] VITALS: BP 126/83; PULSE 85
== END 2017-10-17 10:44 | disposition home or self-care (01) ==
LOC: EC 08:44
DX: S05.01XA Injury of conjunctiva and corneal abrasion without foreign body, right eye, initial encounter (principal); E11.9 Type 2 diabetes mellitus without complications; E78.5 Hyperlipidemia, unspecified; I10 Essential (primary) hypertension; G47.00 Insomnia, unspecified; F41.9 Anxiety disorder, unspecified; Z87.891 Personal history of nicotine dependence; Z79.4 Long term (current) use of insulin; Z79.899 Other long term (current) drug therapy; Z88.7 Allergy status to serum and vaccine
CPT/HCPCS: 99283

== ENCOUNTER 2019-01-05 11:14 | Inpatient (IN) | payer OTHER ==
--- NOTE | 2019-01-05 11:41 | ED ---
General Adult HPI - General Source: patient Mode of arrival: wheelchair Limitations: no limitations <Magnus Mireles - Last Filed: 01/05/19 12:35> <Israel Stout - Last Filed: 01/05/19 19:54> - General Chief complaint: Psychiatric Symptoms Stated complaint: Cut wrist/mental health Time Seen by Provider: 01/05/19 11:22 - History of Present Illness Initial comments: Dictation was produced using [employer] dictation software. please excuse any grammatical, word or spelling errors. Chief Complaint: Patient is 58-year-old male past medical history of depression presents after suicidal ideation and suicidal attempt. History of Present Illness: A 58-year-old male. He states that he's been depressed for the last several days. He feels depressed because he is single and has been single is full life and he only has his family. Patient tried to cut his wrists yesterday. He states that the cut happened at approximately 6 AM yesterday. States that he came today because he doesn't know roused ago. Patient complains of some pain at the site however denies any numbness and paresthesias to the hand. The ROS documented in this emergency department record has been reviewed and confirmed by me. Those systems with pertinent positive or negative responses have been documented in the HPI. All other systems are other negative and/or noncontributory. PHYSICAL EXAM: General Impression: Alert and oriented x3, not in acute distress HEENT: Normocephalic atraumatic, extra-ocular movements intact, pupils equal and reactive to light bilaterally, mucous membranes moist. Cardiovascular: Heart regular rate and rhythm, S1&S2 audible, no murmurs, rubs or gallops Chest: Lungs clear to auscultation bilaterally, no rhonchi, no wheeze, no rales Abdomen: Bowel sounds present, abdomen soft, non-tender, non-distended, no organomegaly Musculoskeletal: Pulses present and equal in all extremities, no peripheral edema Motor: no focal deficits noted Neurological: CN II-XII grossly intact, no focal motor or sensory deficits noted Skin: Deep linear lacerations to the anterior left without significant hemorrhage Psych: Tearful ED course: 58-year-old is ends after suicidal attempt. Patient's laceration occurred approximate 6 AM yesterday morning. He is outside of the laceration repair with no given that it has been approximately 30 hours. There does not appear to be any significant hemorrhage occurring upon examination. There does not appear to be any arterial bleeding. Patient given updated tetanus shot. Patient has tenderness listed as one of his ALLERGIES however after further discussion this does not appear to be ALLERGIC reaction. Patient's alcohol breath test is negative. Wound was dressed with petroleum gauze, Kerlix roll and Coban. Patient medically cleared for EPS evaluation. (Magnus Mireles) - Related Data Home Medications Medication Instructions Recorded Confirmed Atenolol 25 mg PO QAM 08/15/16 01/05/19 Atorvastatin [Lipitor] 80 mg PO HS 08/15/16 01/05/19 metFORMIN HCL 1,000 mg PO BID 08/15/16 01/05/19 ALPRAZolam [Xanax] 1 mg PO DAILY 06/16/17 01/05/19 Insulin Glargine [Lantus] 35 unit SQ HS 10/17/17 01/05/19 Alogliptin Benzoate [Alogliptin] 25 mg PO DAILY 01/05/19 01/05/19 Insulin Aspart [NovoLOG Flexpen] 3 units SQ DAILY 01/05/19 01/05/19 Sertraline [Zoloft] 50 mg PO DAILY 01/05/19 01/05/19 Allergies Allergy/AdvReac Type Severity Reaction Status Date / Time Tetanus Vaccines and Toxoid Allergy Rash/Hives Verified 01/05/19 11:42 Review of Systems ROS Other: All systems not noted in ROS Statement are negative. <Maguns Mireles - Last Filed: 01/05/19 12:35> ROS Other: All systems not noted in ROS Statement are negative. <Israel Stout - Last Filed: 01/05/19 19:54> ROS Statement: Those systems with pertinent positive or pertinent negative responses have been documented in the HPI. 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 History of Any Multi-Drug Resistant Organisms: None Reported Past Surgical History: Adenoidectomy, Tonsillectomy Additional Past Surgical History / Comment(s): Colonoscopy with benign polypectomies Past Anesthesia/Blood Transfusion Reactions: No Reported Reaction Past Psychological History: Anxiety Smoking Status: Current every day smoker Past Alcohol Use History: None Reported Past Drug Use History: Marijuana - Past Family History Father Family Medical History: Diabetes Mellitus Additional Family Medical History / Comment(s): Father had gallbladder disease. He is 77yrs old. Mother Family Medical History: Hyperlipidemia <Magnus Mrieles - Last Filed: 01/05/19 12:35> General Exam Limitations: no limitations <Magnus Mireles - Last Filed: 01/05/19 12:35> Course <Israel Stout - Last Filed: 01/05/19 19:54> Vital Signs 01/05/19 01/05/19 01/05/19 11:18 16:55 19:04 Temperature 97.9 F Pulse Rate 115 H 114 H 74 Respiratory 18 18 16 Rate Blood Pressure 104/64 104/72 109/70 O2 Sat by Pulse 99 93 L 99 Oximetry - Reevaluation(s) Reevaluation #1: 01/05/19 19:51 Fluid bolus provided for a DL body weight of 75.2 kg for a 5 foot 10 male of 2300 mL. 01/05/19 19:53 There is concern for possible sepsis at 1950 based on necrotic toe and leukocytosis, with tachycardia. Blood culture and lactic acid and fluid bolus and IV antibiotics have all been ordered. (Israel Stout) Medical Decision Making - Lab Data Result diagrams: 01/05/19 16:45 01/05/19 16:45 - Radiology Data Radiology results: image reviewed (chest and left foot x-ray revealed no acute process.) <Israel Stout - Last Filed: 01/05/19 19:54> - Medical Decision Making Patient reevaluated by myself, Dr. Stout. Labs reviewed. Patient will need medical doctors to assist with care. [facility]. Patient does have chronic appearing infection left great toe and x-ray will be ordered. Patient will also need further evaluation for renal insufficiency. Patient states he has been depressed for the past several days. Patient states he did cut his left arm in order to kill himself. Patient states he did not do this for attention. Patient also left a note. Positive clinical certificate completed. case was discussed with Dr. Gan, who will admit current for hospital call. He does request evaluation with Dr. Mustafa who has previously seen this patient. He does also request orthopedic consult for delayed closure of left wrist wound. Left wrist wound is approximately 36 hours old at this point and concern for closure at this time with infection. Patient will be placed on antibiotics and have orthopedic consult. (Israel Stout) - Lab Data Lab Results 01/05/19 01/05/19 01/05/19 Range/Units 16:45 16:45 17:45 WBC 34.8 H (3.8-10.6) k/uL RBC 3.54 L (4.30-5.90) m/uL Hgb 10.1 L (13.0-17.5) gm/dL Hct 31.0 L (39.0-53.0) % MCV 87.6 (80.0-100.0) fL MCH 28.7 (25.0-35.0) pg MCHC 32.8 (31.0-37.0) g/dL RDW 14.4 (11.5-15.5) % Plt Count 439 (150-450) k/uL Neutrophils % 89 % Lymphocytes % 6 % Monocytes % 4 % Eosinophils % 1 % Basophils % 0 % Neutrophils # 30.8 H (1.3-7.7) k/uL Lymphocytes # 2.0 (1.0-4.8) k/uL Monocytes # 1.2 H (0-1.0) k/uL Eosinophils # 0.3 (0-0.7) k/uL Basophils # 0.1 (0-0.2) k/uL Sodium 129 L (137-145) mmol/L Potassium 5.6 H (3.5-5.1) mmol/L Chloride 95 L (98-107) mmol/L Carbon Dioxide 22 (22-30) mmol/L Anion Gap 12 mmol/L BUN 49 H (9-20) mg/dL Creatinine 2.12 H (0.66-1.25) mg/dL Est GFR (CKD-EPI)AfAm 39 (>60 ml/min/1.73 sqM) Est GFR (CKD-EPI)NonAf 34 (>60 ml/min/1.73 sqM) Glucose 431 H (74-99) mg/dL Calcium 9.0 (8.4-10.2) mg/dL Urine Opiates Screen Not Detected (NotDetected) Ur Oxycodone Screen Not Detected (NotDetected) Urine Methadone Screen Not Detected (NotDetected) Ur Propoxyphene Screen Not Detected (NotDetected) Ur Barbiturates Screen Not Detected (NotDetected) U Tricyclic Antidepress Not Detected (NotDetected) Ur Phencyclidine Scrn Not Detected (NotDetected) Ur Amphetamines Screen Not Detected (NotDetected) U Methamphetamines Scrn Not Detected (NotDetected) U Benzodiazepines Scrn Not Detected (NotDetected) Urine Cocaine Screen Not Detected (NotDetected) U Marijuana (THC) Screen Detected H (NotDetected) Disposition <Magnus Mireles - Last Filed: 01/05/19 12:35> Is patient prescribed a controlled substance at d/c from ED?: No Decision Time: 19:48 <Israel Stout - Last Filed: 01/05/19 19:54> Clinical Impression: Depression, Attempted suicide, Renal insufficiency, Laceration of left wrist, Necrosis of toe Disposition: ADMITTED IP TO THIS HOSP Referrals: [facility],Clinic [Primary Care Provider] - 1-2 days
[2019-01-05] MEDS ORDERED: DIPH,PERTUS(ACELL)TETVAC-LF 0.5 ML VIAL IM ONE (12:34)
[2019-01-05] MEDS ORDERED: PANTOPRAZOLE 40 MG TABLET PO STA ×2 (15:19→16:20)
[2019-01-05] MEDS ORDERED: ALPRAZolam 1 MG TAB PO STA (16:13)
[2019-01-05 16:57] LABS: Basophils # (A) 0.1 k/uL (0-0.2); Basophils % (A) 0 %; Eosinophils # (A) 0.3 k/uL (0-0.7); Eosinophils % (A) 1 %; HGB 10.1 gm/dL (13.0-17.5); Lymphocytes % (A) 6 %; MCH 28.7 pg (25.0-35.0); MCHC 32.8 g/dL (31.0-37.0); MCV 87.6 fL (80.0-100.0); Mean Platelet Volume 7.4; Monocytes # (A) 1.2 k/uL (0-1.0); Monocytes % (A) 4 %; Neutrophils # (A) 30.8 k/uL (1.3-7.7); Neutrophils % (A) 89 %; Platelet Count 439 k/uL (150-450); RBC 3.54 m/uL (4.30-5.90); RDW 14.4 % (11.5-15.5); WBC 34.8 k/uL (3.8-10.6)
[2019-01-05 17:09] LABS: Potassium 5.6 mmol/L (3.5-5.1)
[2019-01-05 18:15] LABS: Amphetamine Screen,Urine Not Detected (NotDetected); Barbiturate Screen,Urine Not Detected (NotDetected); Benzodiazepines Screen,Urine Not Detected (NotDetected); Cocaine Screen,Urine Not Detected (NotDetected); Methadone Screen, Urine Not Detected (NotDetected); Opiate Screen,Urine Not Detected (NotDetected); Oxycodone Screen, Urine Not Detected (NotDetected); Phencyclidine Screen,Urine Not Detected (NotDetected); Tricyclic Antidepressant,Urine Not Detected (NotDetected); Urn Cannabinoid Scrn Detected (NotDetected)
[2019-01-05] MEDS ORDERED: INSULIN REGULAR 100 UNIT/ML VIAL SQ ONE (18:57)
--- NOTE | 2019-01-05 19:36 | XR ---
EXAMINATION: XR chest 2V DATE AND TIME: 01/05/2019 6:56 PM CLINICAL INDICATION: PHH; Chest Pain TECHNIQUE: Departmental protocol COMPARISON: None FINDINGS: The lungs are clear. The pleural spaces are negative. The cardiac silhouette is not enlarged. The remainder of the mediastinal silhouette is unremarkable. The skeletal structures and soft tissues are negative for acute findings. Bilateral nipple shadows ar e evident. IMPRESSION: NO ACUTE PROCESS.
--- NOTE | 2019-01-05 19:42 | XR ---
PROCEDURE: XR foot complete LT - 3V DATE AND TIME: 01/05/2019 6:56 PM CLINICAL INDICATION: PHH; left great toe pain and wound TECHNIQUE: Department protocol COMPARISON: 06/16/2017 FINDINGS: There are moderately prominent atherosclerotic calcifications throughout the forefoot. Exam ination of the great toe negative for acute bone or joint findings. No acute soft tissue findings are evident. IMPRESSION: No acute radiographic findings.
[2019-01-05] MEDS ORDERED: PIPERACILLIN-TAZOBACTAM 3.375 GM in SODIUM CHLORIDE 0.9% 100 ML IVPB STA (19:49)
[2019-01-05] MEDS ORDERED: VANCOMYCIN IV PER PHARMACY 1 EACH MISC MISCELLANE PRN (19:50)
[2019-01-05] MEDS ORDERED: SODIUM CHLORIDE 0.9% 1,000 ML IV STA ×2 (19:53)
[2019-01-05] MEDS ORDERED: SODIUM CHLORIDE 0.9% 500 ML 500 ML IV STA (19:53)
[2019-01-05] MEDS ORDERED: NALOXONE 0.4 MG/ML 1 ML VIAL IV PRN (19:54)
[2019-01-05] MEDS ORDERED: SODIUM CHLORIDE 0.9% 1,000 ML IV SCH (20:00)
--- NOTE | 2019-01-05 20:03 | P.HPIM ---
History of Present Illness 58-year-old pleasant gentleman came in with suicide ideation and suicide attempt and patient has a laceration to the left forearm. Patient is found to have elevated white blood cell count and patient appears to have dry gangrene of the left great toe patient apparently had an ingrown nail which was painful because of which patient states his nail completely. Weeks ago patient does have doesn't appear to have peripheral vascular disease with decreased pulses in the left lower extremity along with cold clammy limbs bilaterally loss of hair. Patient appears to be diabetic appears to be noncompliant with medications. Patient is quite a bit depressed and it did attempt suicide in his laceration was 30 hours ago because of which this is not sutured patient presently has a sitter and patient denied any dysuria denied any cough chest x-ray did not show any pneumonic process CVA is not available yet urine drug screen is positive for marijuana. Patient left hand laceration may need delayed closure. X-ray of the left great toe did not show any periosteal elevation. Review of Systems REVIEW OF SYSTEMS: CONSTITUTIONAL: No fever, no malaise, no fatigue. HEENT: No recent visual problems or hearing problems. Denied any sore throat. CARDIOVASCULAR: No chest pain, orthopnea, PND, no palpitations, no syncope. PULMONARY: No shortness of breath, no cough, no hemoptysis. GASTROINTESTINAL: No diarrhea, no nausea, no vomiting, no abdominal pain. NEUROLOGICAL: No headaches, no weakness, no numbness. HEMATOLOGICAL: Denies any bleeding or petechiae. GENITOURINARY: Denies any burning micturition, frequency, or urgency. MUSCULOSKELETAL/RHEUMATOLOGICAL: As mentioned in HPI ENDOCRINE: Denies any polyuria or polydipsia. The rest of the 14-point review of systems is negative. 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 History of Any Multi-Drug Resistant Organisms: None Reported Past Surgical History: Adenoidectomy, Tonsillectomy Additional Past Surgical History / Comment(s): Colonoscopy with benign polypectomies Past Anesthesia/Blood Transfusion Reactions: No Reported Reaction Past Psychological History: Anxiety Smoking Status: Current every day smoker Past Alcohol Use History: None Reported Past Drug Use History: Marijuana - Past Family History Father Family Medical History: Diabetes Mellitus Additional Family Medical History / Comment(s): Father had gallbladder disease. He is 77yrs old. Mother Family Medical History: Hyperlipidemia Medications and Allergies Home Medications Medication Instructions Recorded Confirmed Type Atenolol 25 mg PO QAM 08/15/16 01/05/19 History Atorvastatin [Lipitor] 80 mg PO HS 08/15/16 01/05/19 History metFORMIN HCL 1,000 mg PO BID 08/15/16 01/05/19 History ALPRAZolam [Xanax] 1 mg PO DAILY 06/16/17 01/05/19 History Insulin Glargine [Lantus] 35 unit SQ HS 10/17/17 01/05/19 History Alogliptin Benzoate [Alogliptin] 25 mg PO DAILY 01/05/19 01/05/19 History Insulin Aspart [NovoLOG Flexpen] 3 units SQ DAILY 01/05/19 01/05/19 History Sertraline [Zoloft] 50 mg PO DAILY 01/05/19 01/05/19 History Allergies Allergy/AdvReac Type Severity Reaction Status Date / Time Tetanus Vaccines and Toxoid Allergy Rash/Hives Verified 01/05/19 11:42 Physical Exam Vitals: Vital Signs Temp Pulse Resp BP Pulse Ox 01/05/19 19:04 74 16 109/70 99 01/05/19 16:55 114 H 18 104/72 93 L 01/05/19 11:18 97.9 F 115 H 18 104/64 99 Intake and Output 01/05/19 01/05/19 01/05/19 06:59 14:59 22:59 Other: Weight 108.862 kg PHYSICAL EXAMINATION: GENERAL: The patient is alert and oriented x3, not in any acute distress. Well developed, well nourished. HEENT: Pupils are round and equally reacting to light. EOMI. No scleral icterus. No conjunctival pallor. Normocephalic, atraumatic. No pharyngeal erythema. No thyromegaly. CARDIOVASCULAR: S1 and S2 present. No murmurs, rubs, or gallops. PULMONARY: Chest is clear to auscultation, no wheezing or crackles. ABDOMEN: Soft, nontender, nondistended, normoactive bowel sounds. No palpable organomegaly. MUSCULOSKELETAL: No joint swelling or deformity. EXTREMITIES: No cyanosis, clubbing, or pedal edema. Patient appears to have gangrene of the left great toe which appears to be mostly dry gangrene there is no evidence of osteo-mellitus as per the x-ray does have a big laceration with exposed tendons the left breast NEUROLOGICAL: Gross neurological examination did not reveal any focal deficits. SKIN: No rashes. Results CBC & Chem 7: 01/05/19 16:45 01/05/19 16:45 Labs: Abnormal Lab Results - Last 24 Hours (Table) 01/05/19 01/05/19 01/05/19 Range/Units 16:45 16:45 17:45 WBC 34.8 H (3.8-10.6) k/uL RBC 3.54 L (4.30-5.90) m/uL Hgb 10.1 L (13.0-17.5) gm/dL Hct 31.0 L (39.0-53.0) % Neutrophils # 30.8 H (1.3-7.7) k/uL Monocytes # 1.2 H (0-1.0) k/uL Sodium 129 L (137-145) mmol/L Potassium 5.6 H (3.5-5.1) mmol/L Chloride 95 L (98-107) mmol/L BUN 49 H (9-20) mg/dL Creatinine 2.12 H (0.66-1.25) mg/dL Glucose 431 H (74-99) mg/dL U Marijuana (THC) Screen Detected H (NotDetected) Assessment and Plan Plan: -Peripheral vascular disease with gangrene of the left great toe mostly appears to be dry gangrene clinically since he has elevated white blood cell count of 4 31,000 patient will be started on vancomycin and Zosyn cultures will be obtained and infectious disease will be consulted. Patient is diabetic. -Laceration of the left wrist and suicide attempt: Patient will need to light closure of the left hand laceration for which we'll consult orthopedic surgery. Continue with the above-mentioned antibiotics, cover with dry gauze. -Depression and suicide attempt: Patient will have a sitter and psychiatry be consulted -Type 2 diabetes mellitus uncontrolled blood sugars due to noncompliance of medications patient will be resumed on his home regimen along with sliding scale titration depending on his sliding scale requirements hold off on metformin because of her kidney injury -Acute renal failure on chronic kidney disease stage II chronic kidney disease secondary to diabetic nephropathy acute renal failure prerenal azotemia patient was started on IV fluids and continued on IV fluids. We will recheck the basic metabolic profile tomorrow -Hyperkalemia secondary to acute renal failure expected to improve with IV fluids mild hyperkalemia -Hyponatremia: Hypovolemic hyponatremia along with pseudohyponatremia sent from elevated blood sugars continue with IV fluids and continue with insulin regimen as mentioned above 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 -Marijuana use and smoking: Counseling was provided She will need both pharmacologic GI and DVT prophylaxis
[2019-01-05] MEDS ORDERED: VANCOMYCIN 1,750 MG in SODIUM CHLORIDE 0.9% 500 ML 500 ML IVPB STA (20:05)
[2019-01-05 20:09] LABS: Appearance,Urine Clear (Clear); Bilirubin,Urine Negative (Negative); Blood,Urine Trace (Negative); Color,Urine Yellow; Glucose,Urine (UA) 4+ (Negative); Hyaline Casts,Urine 23 /lpf (0-2); Ketones,Urine Negative (Negative); Leukocyte Esterase,Urine Negative (Negative); Mucus,Urine Rare /hpf; Nitrite,Urine Negative (Negative); Protein,Urine 1+ (Negative); RBC,Urine 1 /hpf (0-5); Specific Gravity,Urine 1.021 (1.001-1.035); Urobilinogen,Urine <2.0 mg/dL (<2.0); WBC,Urine 1 /hpf (0-5)
[2019-01-05 20:38] LABS: Glucose,Whole Blood 475 mg/dL (75-99)
[2019-01-05] MEDS ORDERED: INSULIN DETEMIR (LEVEMIR) 100 UNIT/ML SYR SQ SCH (21:30)
[2019-01-05] MEDS: FAMOTIDINE 20 MG TAB PO SCH (22:55)
[2019-01-05] MEDS: HEPARIN SODIUM,PORCINE 5,000 UNIT/ML 1 ML VIAL SQ SCH (23:45)
[2019-01-05] MEDS: ATORVASTATIN 80 MG TAB PO SCH (23:45)
[2019-01-05] MEDS: SODIUM CHLORIDE 0.9% 1,000 ML IV SCH (23:51)
[2019-01-06 07:06] LABS: Glucose,Whole Blood 322 mg/dL (75-99)
[2019-01-06 07:54] LABS: Calcium 8.5 mg/dL (8.4-10.2); Potassium 4.7 mmol/L (3.5-5.1)
[2019-01-06 08:13] LABS: Basophils % (A) 0 %; Eosinophils % (A) 0 %; HCT 25.8 % (39.0-53.0); Lymphocytes # (A) 1.8 k/uL (1.0-4.8); Lymphocytes % (A) 7 %; MCH 29.4 pg (25.0-35.0); MCHC 33.2 g/dL (31.0-37.0); MCV 88.5 fL (80.0-100.0); Mean Platelet Volume 6.8; Monocytes % (A) 4 %; Neutrophils # (A) 21.6 k/uL (1.3-7.7); Neutrophils % (A) 88 %; Platelet Count 332 k/uL (150-450); RBC 2.91 m/uL (4.30-5.90); RDW 14.6 % (11.5-15.5); WBC 24.7 k/uL (3.8-10.6)
[2019-01-06 08:15] LABS: HGB 8.6 gm/dL (13.0-17.5)
[2019-01-06] MEDS: PIPERACILLIN-TAZOBACTAM 3.375 GM in SODIUM CHLORIDE 0.9% 100 ML IVPB SCH ×3 (08:23→23:34)
[2019-01-06] MEDS: FAMOTIDINE 20 MG TAB PO SCH ×2 (08:23→20:45)
[2019-01-06] MEDS: SERTRALINE 50 MG TAB PO SCH (08:23)
[2019-01-06] MEDS: LINAGLIPTIN 5 MG TABLET PO SCH (08:23)
[2019-01-06] MEDS: HEPARIN SODIUM,PORCINE 5,000 UNIT/ML 1 ML VIAL SQ SCH ×4 (08:24→23:34)
[2019-01-06 11:04] LABS: Glucose,Whole Blood 391 mg/dL (75-99)
--- NOTE | 2019-01-06 11:29 | P.CNOR ---
History of Present Illness - [facility] Consult date: 01/06/19 Consult reason: other History of present illness: Patient is a 58-year-old male presenting to [facility] yesterday morning after an apparent suicide attempt. Patient attempted to cut his left wrist and forearm. This injury apparently occurred on 01/04/2019 at about 6 AM. Patient did not initially come to the hospital. He states that the wound. Bleeding, his parents had recommended patient report to the hospital for further evaluation. Upon arrival to the hospital, multiple lab tests and imaging test were done. No closure of the wound was done, they were concerned with the amount of time at the wound and mental clarity. Significant white count was noted, patient was found to have a gangrenous left great toe. He's an uncontrolled diabetic multiple medical comorbidities. We will consult with regards to the forearm laceration and also a left great toe. While the patient was evaluated at bedside today, he has a sitter with him. He notes minimal discomfort of the left wrist. Patient denies any acute pain involving the left great toe at this time. Patient states to the toes been going on for about a month. He has a history of a previous amputation involving the proximal to, he's uncertain the exact date and time. 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 History of Any Multi-Drug Resistant Organisms: None Reported Past Surgical History: Adenoidectomy, Tonsillectomy Additional Past Surgical History / Comment(s): Colonoscopy with benign polypectomies Past Anesthesia/Blood Transfusion Reactions: No Reported Reaction Past Psychological History: Anxiety Additional Psychological History / Comment(s): Pt lives alone. He is independent. He was in the and is stationed in [place] as well as in [place], he is considerably too young to be involved in the [place] conflict. No illnesses while he was in . 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 Facility stopped smoking about a year ago. Denies significant alcohol or recreational drug use. His parents are highly involved. No animal exposures. No recent travel. Denied any sexual partners at this time. Smoking Status: Current some day smoker Past Alcohol Use History: None Reported Additional Past Alcohol Use History / Comment(s): SMOKING: QUIT 2016, FOR 40 YRS, 2-3 PPD. Past Drug Use History: Marijuana Additional Drug Use History / Comment(s): Pt states he quit smoking marijuana and that he has not smoked marijuana in 4 months. - Past Family History Father Family Medical History: Diabetes Mellitus Additional Family Medical History / Comment(s): Father had gallbladder disease. He is 77yrs old. Mother Family Medical History: Hyperlipidemia Medications and Allergies Home Medications Medication Instructions Recorded Confirmed Type Atenolol 25 mg PO QAM 08/15/16 01/05/19 History Atorvastatin [Lipitor] 80 mg PO HS 08/15/16 01/05/19 History metFORMIN HCL 1,000 mg PO BID 08/15/16 01/05/19 History ALPRAZolam [Xanax] 1 mg PO DAILY 06/16/17 01/05/19 History Insulin Glargine [Lantus] 35 unit SQ HS 10/17/17 01/05/19 History Alogliptin Benzoate [Alogliptin] 25 mg PO DAILY 01/05/19 01/05/19 History Insulin Aspart [NovoLOG Flexpen] 3 units SQ W/SUPPER 01/05/19 01/05/19 History Sertraline [Zoloft] 50 mg PO DAILY 01/05/19 01/05/19 History Allergies Allergy/AdvReac Type Severity Reaction Status Date / Time Tetanus Vaccines and Toxoid Allergy Rash/Hives Verified 01/05/19 11:42 Physical Examination Left upper extremity: Bandage material was removed, no active bleeding was noted. There is an obvious laceration the potential side of the left wrist ORIF. 2 separate lacerations, one was about 4 cm in length, this transversely across the wrist, second laceration extended more vertically towards the forearm, this was also about 4 cm. Sensory exam light touch in the fingers is intact. Skin is warm to touch Left lower extremity: Obvious gangrenous left big toe noted with multiple areas necrotic tissue. Previous amputation noted of the left small toe. Generalized skin discoloration present throughout multiple areas in the foot. Results - Labs Labs: Abnormal Lab Results - Last 24 Hours (Table) 01/05/19 01/05/19 01/05/19 Range/Units 16:45 16:45 17:45 WBC 34.8 H (3.8-10.6) k/uL RBC 3.54 L (4.30-5.90) m/uL Hgb 10.1 L (13.0-17.5) gm/dL Hct 31.0 L (39.0-53.0) % Neutrophils # 30.8 H (1.3-7.7) k/uL Monocytes # 1.2 H (0-1.0) k/uL Sodium 129 L (137-145) mmol/L Potassium 5.6 H (3.5-5.1) mmol/L Chloride 95 L (98-107) mmol/L BUN 49 H (9-20) mg/dL Creatinine 2.12 H (0.66-1.25) mg/dL Glucose 431 H (74-99) mg/dL POC Glucose (mg/dL) (75-99) mg/dL TSH (0.465-4.680) mIU/L Urine Protein (Negative) Urine Glucose (UA) (Negative) Urine Blood (Negative) Hyaline Casts (0-2) /lpf Urine Mucus (None) /hpf U Marijuana (THC) Screen Detected H (NotDetected) 01/05/19 01/05/19 01/05/19 Range/Units 19:16 19:16 20:25 WBC (3.8-10.6) k/uL RBC (4.30-5.90) m/uL Hgb (13.0-17.5) gm/dL Hct (39.0-53.0) % Neutrophils # (1.3-7.7) k/uL Monocytes # (0-1.0) k/uL Sodium (137-145) mmol/L Potassium (3.5-5.1) mmol/L Chloride (98-107) mmol/L BUN (9-20) mg/dL Creatinine (0.66-1.25) mg/dL Glucose (74-99) mg/dL POC Glucose (mg/dL) 475 H (75-99) mg/dL TSH 4.950 H (0.465-4.680) mIU/L Urine Protein 1+ H (Negative) Urine Glucose (UA) 4+ H (Negative) Urine Blood Trace H (Negative) Hyaline Casts 23 H (0-2) /lpf Urine Mucus Rare H (None) /hpf U Marijuana (THC) Screen (NotDetected) 01/06/19 01/06/19 01/06/19 Range/Units 07:03 07:14 07:14 WBC 24.7 H (3.8-10.6) k/uL RBC 2.91 L (4.30-5.90) m/uL Hgb 8.6 L D (13.0-17.5) gm/dL Hct 25.8 L (39.0-53.0) % Neutrophils # 21.6 H (1.3-7.7) k/uL Monocytes # (0-1.0) k/uL Sodium 133 L (137-145) mmol/L Potassium (3.5-5.1) mmol/L Chloride (98-107) mmol/L BUN 39 H (9-20) mg/dL Creatinine 1.27 H (0.66-1.25) mg/dL Glucose 269 H (74-99) mg/dL POC Glucose (mg/dL) 322 H (75-99) mg/dL TSH (0.465-4.680) mIU/L Urine Protein (Negative) Urine Glucose (UA) (Negative) Urine Blood (Negative) Hyaline Casts (0-2) /lpf Urine Mucus (None) /hpf U Marijuana (THC) Screen (NotDetected) 01/06/19 Range/Units 11:02 WBC (3.8-10.6) k/uL RBC (4.30-5.90) m/uL Hgb (13.0-17.5) gm/dL Hct (39.0-53.0) % Neutrophils # (1.3-7.7) k/uL Monocytes # (0-1.0) k/uL Sodium (137-145) mmol/L Potassium (3.5-5.1) mmol/L Chloride (98-107) mmol/L BUN (9-20) mg/dL Creatinine (0.66-1.25) mg/dL Glucose (74-99) mg/dL POC Glucose (mg/dL) 391 H (75-99) mg/dL TSH (0.465-4.680) mIU/L Urine Protein (Negative) Urine Glucose (UA) (Negative) Urine Blood (Negative) Hyaline Casts (0-2) /lpf Urine Mucus (None) /hpf U Marijuana (THC) Screen (NotDetected) H & H 01/05/19 01/06/19 Range/Units 16:45 07:14 Hgb 10.1 L 8.6 L D (13.0-17.5) gm/dL Hct 31.0 L 25.8 L (39.0-53.0) % Result Diagrams: 01/06/19 07:14 01/06/19 07:14 Assessment and Plan Plan: Assessment: 1. Left wrist/forearm lacerations 2. Left gangrenous great toe 3. Multiple medical comorbidities Plan: I was able to discuss the case with my attending Dr. Suresh, he was present today to examine the patient and discussed treatment options. Patient is scheduled for a laceration repair of the left forearm and wrist. Plan is for surgery on 01/07/2018. Nothing by mouth after midnight Continue IV antibiotics, await infectious disease recommendations. Vascular consult was placed for left big toe, no orthopedic surgical intervention Other manager medical device recommendations Further recommendations to follow Time with Patient: Less than 30
[2019-01-06] MEDS: traMADol 50 MG TAB PO PRN ×2 (11:35→17:08)
[2019-01-06] MEDS: INSULIN ASPART (NovoLOG) 100 UNIT/ML VIAL SQ SCH ×4 (11:38→20:45)
[2019-01-06] MEDS: LORazepam 2 MG/ML INJ IV PRN (11:47)
[2019-01-06] MEDS: VANCOMYCIN 1,750 MG in SODIUM CHLORIDE 0.9% 500 ML 500 ML IVPB SCH ×2 (11:54→20:45)
[2019-01-06] MEDS: SODIUM CHLORIDE 0.9% 1,000 ML IV SCH ×2 (11:55→19:15)
--- NOTE | 2019-01-06 15:46 | P.PN ---
Subjective Patient is admitted after suicide attempt with the knife and laceration to the left forearm which need delayed closure an orthopedic surgery will do that tomorrow. Patient also has severe peripheral vascular disease with the possible dry gangrene because of leukocytosis and patient was started on antibiotics and infectious disease will evaluate the patient. White blood cell count has come down serum random creatinine has come down significantly along with blood sugars although they're not the controlled I'm increasing pre-meal as well as long- acting insulin. Constitutional: Denied any fatigue denied any fever. Cardio vascular: denied any chest pain, palpitations Gastrointestinal denied any nausea vomiting Pulmonary: Denied any shortness of breath cough Neurologic denied any new focal deficits All inpatient medications were reviewed and appropriate changes in these medications as dictated in the interval history and assessment and plan. Objective - Vital Signs Vital signs: Vital Signs Temp 98.5 F 01/06/19 13:22 Pulse 108 H 01/06/19 13:22 Resp 16 01/06/19 13:22 BP 115/70 01/06/19 13:22 Pulse Ox 95 01/06/19 13:22 Intake & Output 01/05/19 01/06/19 01/06/19 18:59 06:59 18:59 Intake Total 1200 Output Total 125 Balance 1200 -125 Weight 108.862 kg Intake: Intake, IV Titration 1200 Amount Sodium Chloride 0.9% 1, 700 000 ml @ 100 mls/hr IV . Q10H HELEN Rx#:[id number] Vancomycin 1,750 mg In 500 Sodium Chloride 0.9% 500 ml 500 ml @ 167 mls/hr IVPB Q24H HELEN Rx#: [id number] Output: Urine 125 - Exam PHYSICAL EXAMINATION: GENERAL: The patient is alert and oriented x3, not in any acute distress. Well developed, well nourished. HEENT: Pupils are round and equally reacting to light. EOMI. No scleral icterus. No conjunctival pallor. Normocephalic, atraumatic. No pharyngeal erythema. No thyromegaly. CARDIOVASCULAR: S1 and S2 present. No murmurs, rubs, or gallops. PULMONARY: Chest is clear to auscultation, no wheezing or crackles. ABDOMEN: Soft, nontender, nondistended, normoactive bowel sounds. No palpable organomegaly. MUSCULOSKELETAL: No joint swelling or deformity. EXTREMITIES: No cyanosis, clubbing, or pedal edema. Patient appears to have gangrene of the left great toe which appears to be mostly dry gangrene there is no evidence of osteo-mellitus as per the x-ray does have a big laceration with exposed tendons the left breast NEUROLOGICAL: Gross neurological examination did not reveal any focal deficits. SKIN: No rashes. - Labs CBC & Chem 7: 01/06/19 07:14 01/06/19 07:14 Labs: Abnormal Lab Results - Last 24 Hours (Table) 01/05/19 01/05/19 01/05/19 Range/Units 16:45 16:45 17:45 WBC 34.8 H (3.8-10.6) k/uL RBC 3.54 L (4.30-5.90) m/uL Hgb 10.1 L (13.0-17.5) gm/dL Hct 31.0 L (39.0-53.0) % Neutrophils # 30.8 H (1.3-7.7) k/uL Monocytes # 1.2 H (0-1.0) k/uL Sodium 129 L (137-145) mmol/L Potassium 5.6 H (3.5-5.1) mmol/L Chloride 95 L (98-107) mmol/L BUN 49 H (9-20) mg/dL Creatinine 2.12 H (0.66-1.25) mg/dL Glucose 431 H (74-99) mg/dL POC Glucose (mg/dL) (75-99) mg/dL TSH (0.465-4.680) mIU/L Urine Protein (Negative) Urine Glucose (UA) (Negative) Urine Blood (Negative) Hyaline Casts (0-2) /lpf Urine Mucus (None) /hpf U Marijuana (THC) Screen Detected H (NotDetected) 01/05/19 01/05/19 01/05/19 Range/Units 19:16 19:16 20:25 WBC (3.8-10.6) k/uL RBC (4.30-5.90) m/uL Hgb (13.0-17.5) gm/dL Hct (39.0-53.0) % Neutrophils # (1.3-7.7) k/uL Monocytes # (0-1.0) k/uL Sodium (137-145) mmol/L Potassium (3.5-5.1) mmol/L Chloride (98-107) mmol/L BUN (9-20) mg/dL Creatinine (0.66-1.25) mg/dL Glucose (74-99) mg/dL POC Glucose (mg/dL) 475 H (75-99) mg/dL TSH 4.950 H (0.465-4.680) mIU/L Urine Protein 1+ H (Negative) Urine Glucose (UA) 4+ H (Negative) Urine Blood Trace H (Negative) Hyaline Casts 23 H (0-2) /lpf Urine Mucus Rare H (None) /hpf U Marijuana (THC) Screen (NotDetected) 01/06/19 01/06/19 01/06/19 Range/Units 07:03 07:14 07:14 WBC 24.7 H (3.8-10.6) k/uL RBC 2.91 L (4.30-5.90) m/uL Hgb 8.6 L D (13.0-17.5) gm/dL Hct 25.8 L (39.0-53.0) % Neutrophils # 21.6 H (1.3-7.7) k/uL Monocytes # (0-1.0) k/uL Sodium 133 L (137-145) mmol/L Potassium (3.5-5.1) mmol/L Chloride (98-107) mmol/L BUN 39 H (9-20) mg/dL Creatinine 1.27 H (0.66-1.25) mg/dL Glucose 269 H (74-99) mg/dL POC Glucose (mg/dL) 322 H (75-99) mg/dL TSH (0.465-4.680) mIU/L Urine Protein (Negative) Urine Glucose (UA) (Negative) Urine Blood (Negative) Hyaline Casts (0-2) /lpf Urine Mucus (None) /hpf U Marijuana (THC) Screen (NotDetected) 01/06/19 Range/Units 11:02 WBC (3.8-10.6) k/uL RBC (4.30-5.90) m/uL Hgb (13.0-17.5) gm/dL Hct (39.0-53.0) % Neutrophils # (1.3-7.7) k/uL Monocytes # (0-1.0) k/uL Sodium (137-145) mmol/L Potassium (3.5-5.1) mmol/L Chloride (98-107) mmol/L BUN (9-20) mg/dL Creatinine (0.66-1.25) mg/dL Glucose (74-99) mg/dL POC Glucose (mg/dL) 391 H (75-99) mg/dL TSH (0.465-4.680) mIU/L Urine Protein (Negative) Urine Glucose (UA) (Negative) Urine Blood (Negative) Hyaline Casts (0-2) /lpf Urine Mucus (None) /hpf U Marijuana (THC) Screen (NotDetected) Assessment and Plan Plan: -Peripheral vascular disease with gangrene of the left great toe mostly appears to be dry gangrene clinically since he has elevated white blood cell count of 4 31,000 patient will be started on vancomycin and Zosyn cultures will be obtained and infectious disease will evaluate the patient Patient is diabetic. -Laceration of the left wrist and suicide attempt: Patient will need to light closure of the left hand laceration for which orthopedic surgery evaluated the patient. Continue with the above-mentioned antibiotics. -Depression and suicide attempt: Patient will have a sitter and psychiatry will evaluate the patient -Type 2 diabetes mellitus uncontrolled blood sugars due to noncompliance of medications patient shouldn't pre-meal insulin as well as a long-acting insulin dose was increased -Acute renal failure on chronic kidney disease stage II chronic kidney disease secondary to diabetic nephropathy acute renal failure prerenal azotemia patient was started on IV fluids and continued on IV fluids. 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
--- NOTE | 2019-01-06 16:47 | P.GSCN ---
History of Present Illness History of present illness: 58-year-old white male, patient is known to me from the past had a left foot fifth toe Charity done by me about 2 years ago. Patient came with history of suicidal attempt he has a laceration left forearm seen by orthopedic for closure. Patient has left foot big toe dry gangrene for the past 1 month. Medical history history of diabetes, history of chronic renal failure, history of depression Surgical history patient had a left fifth toe. 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 History of Any Multi-Drug Resistant Organisms: None Reported Past Surgical History: Adenoidectomy, Tonsillectomy Additional Past Surgical History / Comment(s): Colonoscopy with benign polypectomies Past Anesthesia/Blood Transfusion Reactions: No Reported Reaction Past Psychological History: Anxiety Additional Psychological History / Comment(s): Pt lives alone. He is independent. He was in the and is stationed in [place] as well as in [place], he is considerably too young to be involved in the [place] conflict. No illnesses while he was in . 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 Facility stopped smoking about a year ago. Denies significant alcohol or recreational drug use. His parents are highly involved. No animal exposures. No recent travel. Denied any sexual partners at this time. Smoking Status: Current some day smoker Past Alcohol Use History: None Reported Additional Past Alcohol Use History / Comment(s): SMOKING: QUIT 2015, FOR 40 YRS, 2-3 PPD. Past Drug Use History: Marijuana Additional Drug Use History / Comment(s): Pt states he quit smoking marijuana and that he has not smoked marijuana in 4 months. - Past Family History Father Family Medical History: Diabetes Mellitus Additional Family Medical History / Comment(s): Father had gallbladder disease. He is 77yrs old. Mother Family Medical History: Hyperlipidemia Medications and Allergies Home Medications Medication Instructions Recorded Confirmed Type Atenolol 25 mg PO QAM 08/15/16 01/05/19 History Atorvastatin [Lipitor] 80 mg PO HS 08/15/16 01/05/19 History metFORMIN HCL 1,000 mg PO BID 08/15/16 01/05/19 History ALPRAZolam [Xanax] 1 mg PO DAILY 06/16/17 01/05/19 History Insulin Glargine [Lantus] 35 unit SQ HS 10/17/17 01/05/19 History Alogliptin Benzoate [Alogliptin] 25 mg PO DAILY 01/05/19 01/05/19 History Insulin Aspart [NovoLOG Flexpen] 3 units SQ W/SUPPER 01/05/19 01/05/19 History Sertraline [Zoloft] 50 mg PO DAILY 01/05/19 01/05/19 History Allergies Allergy/AdvReac Type Severity Reaction Status Date / Time Tetanus Vaccines and Toxoid Allergy Rash/Hives Verified 01/05/19 11:42 Surgical - Exam Vital Signs Temp Pulse Resp BP Pulse Ox 97.9 F 115 H 18 104/64 99 01/05/19 11:18 01/05/19 11:18 01/05/19 11:18 01/05/19 11:18 01/05/19 11:18 Results - Labs 01/06/19 07:14 01/06/19 07:14 Abnormal Lab Results - Last 24 Hours (Table) 01/05/19 01/05/19 01/05/19 Range/Units 16:45 16:45 17:45 WBC 34.8 H (3.8-10.6) k/uL RBC 3.54 L (4.30-5.90) m/uL Hgb 10.1 L (13.0-17.5) gm/dL Hct 31.0 L (39.0-53.0) % Neutrophils # 30.8 H (1.3-7.7) k/uL Monocytes # 1.2 H (0-1.0) k/uL Sodium 129 L (137-145) mmol/L Potassium 5.6 H (3.5-5.1) mmol/L Chloride 95 L (98-107) mmol/L BUN 49 H (9-20) mg/dL Creatinine 2.12 H (0.66-1.25) mg/dL Glucose 431 H (74-99) mg/dL POC Glucose (mg/dL) (75-99) mg/dL TSH (0.465-4.680) mIU/L Urine Protein (Negative) Urine Glucose (UA) (Negative) Urine Blood (Negative) Hyaline Casts (0-2) /lpf Urine Mucus (None) /hpf U Marijuana (THC) Screen Detected H (NotDetected) 01/05/19 01/05/19 01/05/19 Range/Units 19:16 19:16 20:25 WBC (3.8-10.6) k/uL RBC (4.30-5.90) m/uL Hgb (13.0-17.5) gm/dL Hct (39.0-53.0) % Neutrophils # (1.3-7.7) k/uL Monocytes # (0-1.0) k/uL Sodium (137-145) mmol/L Potassium (3.5-5.1) mmol/L Chloride (98-107) mmol/L BUN (9-20) mg/dL Creatinine (0.66-1.25) mg/dL Glucose (74-99) mg/dL POC Glucose (mg/dL) 475 H (75-99) mg/dL TSH 4.950 H (0.465-4.680) mIU/L Urine Protein 1+ H (Negative) Urine Glucose (UA) 4+ H (Negative) Urine Blood Trace H (Negative) Hyaline Casts 23 H (0-2) /lpf Urine Mucus Rare H (None) /hpf U Marijuana (THC) Screen (NotDetected) 01/06/19 01/06/19 01/06/19 Range/Units 07:03 07:14 07:14 WBC 24.7 H (3.8-10.6) k/uL RBC 2.91 L (4.30-5.90) m/uL Hgb 8.6 L D (13.0-17.5) gm/dL Hct 25.8 L (39.0-53.0) % Neutrophils # 21.6 H (1.3-7.7) k/uL Monocytes # (0-1.0) k/uL Sodium 133 L (137-145) mmol/L Potassium (3.5-5.1) mmol/L Chloride (98-107) mmol/L BUN 39 H (9-20) mg/dL Creatinine 1.27 H (0.66-1.25) mg/dL Glucose 269 H (74-99) mg/dL POC Glucose (mg/dL) 322 H (75-99) mg/dL TSH (0.465-4.680) mIU/L Urine Protein (Negative) Urine Glucose (UA) (Negative) Urine Blood (Negative) Hyaline Casts (0-2) /lpf Urine Mucus (None) /hpf U Marijuana (THC) Screen (NotDetected) 01/06/19 Range/Units 11:02 WBC (3.8-10.6) k/uL RBC (4.30-5.90) m/uL Hgb (13.0-17.5) gm/dL Hct (39.0-53.0) % Neutrophils # (1.3-7.7) k/uL Monocytes # (0-1.0) k/uL Sodium (137-145) mmol/L Potassium (3.5-5.1) mmol/L Chloride (98-107) mmol/L BUN (9-20) mg/dL Creatinine (0.66-1.25) mg/dL Glucose (74-99) mg/dL POC Glucose (mg/dL) 391 H (75-99) mg/dL TSH (0.465-4.680) mIU/L Urine Protein (Negative) Urine Glucose (UA) (Negative) Urine Blood (Negative) Hyaline Casts (0-2) /lpf Urine Mucus (None) /hpf U Marijuana (THC) Screen (NotDetected) Diabetes panel 01/05/19 01/06/19 Range/Units 16:45 07:14 Sodium 129 L 133 L (137-145) mmol/L Potassium 5.6 H 4.7 (3.5-5.1) mmol/L Chloride 95 L 100 (98-107) mmol/L Carbon Dioxide 22 27 (22-30) mmol/L BUN 49 H 39 H (9-20) mg/dL Creatinine 2.12 H 1.27 H (0.66-1.25) mg/dL Glucose 431 H 269 H (74-99) mg/dL Calcium 9.0 8.5 (8.4-10.2) mg/dL Thyroid panel 01/05/19 Range/Units 19:16 TSH 4.950 H (0.465-4.680) mIU/L Calcium panel 01/05/19 01/06/19 Range/Units 16:45 07:14 Calcium 9.0 8.5 (8.4-10.2) mg/dL Pituitary panel 01/05/19 01/05/19 01/06/19 Range/Units 16:45 19:16 07:14 Sodium 129 L 133 L (137-145) mmol/L Potassium 5.6 H 4.7 (3.5-5.1) mmol/L Chloride 95 L 100 (98-107) mmol/L Carbon Dioxide 22 27 (22-30) mmol/L BUN 49 H 39 H (9-20) mg/dL Creatinine 2.12 H 1.27 H (0.66-1.25) mg/dL Glucose 431 H 269 H (74-99) mg/dL Calcium 9.0 8.5 (8.4-10.2) mg/dL TSH 4.950 H (0.465-4.680) mIU/L Adrenal panel 01/05/19 01/06/19 Range/Units 16:45 07:14 Sodium 129 L 133 L (137-145) mmol/L Potassium 5.6 H 4.7 (3.5-5.1) mmol/L Chloride 95 L 100 (98-107) mmol/L Carbon Dioxide 22 27 (22-30) mmol/L BUN 49 H 39 H (9-20) mg/dL Creatinine 2.12 H 1.27 H (0.66-1.25) mg/dL Glucose 431 H 269 H (74-99) mg/dL Calcium 9.0 8.5 (8.4-10.2) mg/dL
[2019-01-06 17:08] LABS: Glucose,Whole Blood 245 mg/dL (75-99)
[2019-01-06] MEDS ORDERED: INSULIN ASPART (NovoLOG) 100 UNIT/ML VIAL SQ SCH (17:30)
[2019-01-06 20:43] LABS: Glucose,Whole Blood 178 mg/dL (75-99)
[2019-01-06] MEDS: ATORVASTATIN 80 MG TAB PO SCH (20:45)
[2019-01-06] MEDS ORDERED: INSULIN DETEMIR (LEVEMIR) 100 UNIT/ML SYR SQ SCH (21:00)
[2019-01-06] MEDS ORDERED: VANCOMYCIN 1,750 MG in SODIUM CHLORIDE 0.9% 500 ML 500 ML IVPB SCH (21:00)
[2019-01-07] MEDS: SODIUM CHLORIDE 0.9% 1,000 ML IV SCH ×3 (04:31→23:00)
[2019-01-07] MEDS ORDERED: IV FLUID CONTINUATION 1,000 ML IV ONE (06:00)
[2019-01-07 06:22] LABS: Glucose,Whole Blood 107 mg/dL (75-99)
[2019-01-07] MEDS ORDERED: SUCCINYLCHOLINE CHLORIDE 100 MG/5 ML SYR IV ONE (06:57)
[2019-01-07] MEDS ORDERED: ePHEDrine SULFATE/0.9% NACL/PF 50 MG/5 ML SYRINGE IV ONE (06:57)
[2019-01-07] MEDS ORDERED: MIDAZOLAM 2 MG/2 ML VIAL ONE (06:57)
[2019-01-07] MEDS ORDERED: PROPOFOL 10 MG/ML 20 ML VIAL IV ONE ×2 (06:57)
[2019-01-07] MEDS ORDERED: fentaNYL (PF) 50 MCG/ML 2 ML AMP ONE (06:57)
[2019-01-07] MEDS ORDERED: PHENYLEPHRINE-0.9% NACL SYG 1 MG/10 ML SYRINGE ONE (06:57)
[2019-01-07] MEDS ORDERED: BUPIVACAINE (PF) 0.5% 30 ML VIAL SQ ONE (07:25)
[2019-01-07] MEDS ORDERED: LACTATED RINGERS 1,000 ML IV ONE (07:43)
[2019-01-07] MEDS ORDERED: BACITRACIN 500 UNIT/GM OINT 28.4 GM TUBE TOPICAL ONE (07:45)
[2019-01-07] MEDS ORDERED: VANCOMYCIN TROUGH DUE 1 EACH MISC MISCELLANE ONE (08:00)
--- NOTE | 2019-01-07 08:00 | P.OP ---
Date of Procedure: 01/07/19 Preoperative Diagnosis: Left wrist laceration Postoperative Diagnosis: Left wrist 18 cm laceration Procedure(s) Performed: Repair left wrist 18 cm laceration Anesthesia: ADELAIDEA Surgeon: Truman Suresh Estimated Blood Loss (ml): 1 Pathology: none sent Condition: stable Disposition: PACU Indications for Procedure: 58-year-old patient seen with a left wrist laceration. I recommended repair. He was agreeable. Consent was obtained. Operative Findings: sse description of procedure Description of Procedure: The patient was taken to the operative suite. The patient underwent a general anesthetic by the department of anesthesia. The left upper extremity was prepped and draped in the normal sterile orthopedic fashion. The wound was evaluated. It is approximately 18 cm including a transverse component at the level of the distal volar wrist crease and perpendicular component extending more proximally. I explored the wound and it appeared to be superficial and did not penetrate the fascia. I irrigated the wound out copiously with a proximal 1000 mL of sterile saline solution. I debrided any necrotic-appearing tissue. I repaired the 18 cm laceration utilizing 3-0 nylon in multiple interrupted suture fashion. We applied sterile dressings. I applied sterile web roll followed by loose Preston bandage. The patient was then awakened and transferred to recovery having tolerated procedure well.
[2019-01-07 08:25] LABS: Glucose,Whole Blood 135 mg/dL (75-99)
[2019-01-07 09:17] LABS: Glucose,Whole Blood 146 mg/dL (75-99)
[2019-01-07] MEDS: LINAGLIPTIN 5 MG TABLET PO SCH (09:24)
[2019-01-07] MEDS: SERTRALINE 50 MG TAB PO SCH (09:24)
[2019-01-07] MEDS: FAMOTIDINE 20 MG TAB PO SCH ×2 (09:24→21:09)
[2019-01-07] MEDS: traMADol 50 MG TAB PO PRN ×2 (09:24→17:13)
[2019-01-07] MEDS: INSULIN ASPART (NovoLOG) 100 UNIT/ML VIAL SQ SCH ×5 (09:25→21:09)
[2019-01-07] MEDS: PIPERACILLIN-TAZOBACTAM 3.375 GM in SODIUM CHLORIDE 0.9% 100 ML IVPB SCH ×2 (09:26→17:11)
[2019-01-07] MEDS: HEPARIN SODIUM,PORCINE 5,000 UNIT/ML 1 ML VIAL SQ SCH ×2 (09:26→14:41)
[2019-01-07 11:11] LABS: HCT 23.9 % (39.0-53.0); HGB 7.6 gm/dL (13.0-17.5); MCH 29.3 pg (25.0-35.0); MCHC 31.9 g/dL (31.0-37.0); MCV 91.8 fL (80.0-100.0); Mean Platelet Volume 9.1; WBC 15.4 k/uL (3.8-10.6)
[2019-01-07 11:14] LABS: Platelet Count 162 k/uL (150-450)
[2019-01-07 11:23] LABS: Calcium 8.2 mg/dL (8.4-10.2); Potassium 4.3 mmol/L (3.5-5.1)
[2019-01-07 11:32] LABS: Glucose,Whole Blood 227 mg/dL (75-99)
[2019-01-07] MEDS: LORazepam 2 MG/ML INJ IV PRN ×2 (12:20→21:07)
--- NOTE | 2019-01-07 13:55 | P.CN ---
Psychiatric Consult - . Consult date: 01/07/19 Consult:: 01/06/19 09:37 depression, suicidal Assessment and Plan Assessment: Chief Complaint: Patient is 58-year-old male past medical history of depression presents after suicidal ideation and suicidal attempt. History of Present Illness: A 58-year-old male. He states that he's been depressed for the last several days. He feels depressed because he is single and has been single is full life and he only has his family. Patient tried to cut his wrists yesterday. He states that the cut happened at approximately 6 AM yesterday. States that he came today because he doesn't know roused ago. Patient complains of some pain at the site however denies any numbness and paresthesias to the hand. The ROS documented in this emergency department record has been reviewed and confirmed by me. Those systems with pertinent positive or negative responses have been documented in the HPI. All other systems are other negative and/or noncontributory. ED course: 58-year-old is ends after suicidal attempt. Patient's laceration occurred approximate 6 AM yesterday morning. He is outside of the laceration repair with no given that it has been approximately 30 hours. There does not appear to be any significant hemorrhage occurring upon examination. There does not appear to be any arterial bleeding. Patient given updated tetanus shot. Patient has tenderness listed as one of his ALLERGIES however after further discussion this does not appear to be ALLERGIC reaction. Patient's alcohol breath test is negative. Wound was dressed with petroleum gauze, Kerlix roll and Coban. Patient medically cleared for EPS evaluation. pt presents to EC with c/o feeling suicidal. Pt also c/o left wrist laceration, pt states he cut his wrist early Friday in an attempt to kill himselfpt presents to ER after cutting his left wrist Friday morning. pt has vertical and horizontal laceration on his wrist that has been cleaned and is currently wrapped. pt's large toe on his left foot is also necrotic. pt reports that he had an ingrown toenail and that, when he "popped it out, the whole nail popped off." pt states that he is in the ER because "I wanted to . That's why I did that. I have nothing to look forward to." pt reports that lack of close friend or girlfriend for 8 years, disappointment with his occupation, fear of disappointing his parents, and an injury on his toe after having already lost one toe caused increased depression resulting in suicide attempt. pt states that, "It wouldn't bleed. It bled a little, but it just wouldn't really bleed. And once I started, I felt like I had to finish." - Related Data Home Medications Medication Instructions Recorded Confirmed Atenolol 25 mg PO QAM 08/15/16 01/05/19 Atorvastatin [Lipitor] 80 mg PO HS 08/15/16 01/05/19 metFORMIN HCL 1,000 mg PO BID 08/15/16 01/05/19 ALPRAZolam [Xanax] 1 mg PO DAILY 06/16/17 01/05/19 Insulin Glargine [Lantus] 35 unit SQ HS 10/17/17 01/05/19 Alogliptin Benzoate [Alogliptin] 25 mg PO DAILY 01/05/19 01/05/19 Insulin Aspart [NovoLOG Flexpen] 3 units SQ DAILY 01/05/19 01/05/19 Sertraline [Zoloft] 50 mg PO DAILY 01/05/19 01/05/19 Allergies Allergy/AdvReac Type Severity Reaction Status Date / Time Tetanus Vaccines and Toxoid Allergy Rash/Hives Verified 01/05/19 11:42 Past Medical History Past Medical History: Diabetes Mellitus, Hyperlipidemia, Hypertension, Neurologic Disorder Additional Past Medical History / Comment(s): NIDDM type II, 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 History of Any Multi-Drug Resistant Organisms: None Reported Past Surgical History: Adenoidectomy, Tonsillectomy Additional Past Surgical History / Comment(s): Colonoscopy with benign polypectomies Past Anesthesia/Blood Transfusion Reactions: No Reported Reaction Past Psychological History: Anxiety Smoking Status: Current every day smoker Past Alcohol Use History: None Reported Past Drug Use History: Marijuana - Past Family History Father Family Medical History: Diabetes Mellitus Additional Family Medical History / Comment(s): Father had gallbladder disease. He is 77yrs old. Mother Family Medical History: Hyperlipidemia Mental Status Examination - this is a 58-year-old male who impulsively started cutting on his wrist Friday throughout Friday with the intent of killing himself. He was not for the intervention of his parents he would eventually have . he goes to work in the morning and comes home every day and does nothing when he gets home. He owns TV but no abnormal just watches movies. He is intolerant of the world. General Appearance: [ casual, appears older than stated age Speech/Language: [spontaneous, rapid, expressive, loud Attitude/Behavior: [cooperative Mood: [ depressed,anxious, fearful, hopelessness Affect: [full range, lively, denies Orientation: [time, person, place situation] Thought Content: [wnl, delusions, obsessions, phobias, other] Risk Factors: [He is currently suicidal (ideations, plan) Perception: [wnl, denies hallucinations (auditory, visual, tactile), other] Thought Processes: [ concrete, circumstantial, tangential, other] Concentration/Attention Span: [wnl] [Per observation and interview with the patient] Recent Memory: [wnl 3 out of 3 in 3 minutes] Remote Memory: [wnl] [past events, as related history] Intelligence:average] [based on history, based on vocabulary, syntax, grammar, and content] Judgement: [poor] [per patient's behavior/history of present illness] Insight: [poor] [understanding severity of illness/history of present illness] Psychiatric impression: Major depressive disorder severely depressed and recurrent with suicidal attempt Psychiatric recommendation: He should be hospitalized on [address] [place] [address] for he is willing to get care at [facility] Thank you for the consult and we'll facilitate transfer Josh Aiken D.O. PhD (1) Attempted suicide Current Visit: Yes Status: Acute Priority: High Code(s): T14.91XA - SUICIDE ATTEMPT, INITIAL ENCOUNTER SNOMED Code(s): 09629257 (2) Depression Current Visit: Yes Status: Acute Priority: High Code(s): F32.9 - MAJOR DEPRESSIVE DISORDER, SINGLE EPISODE, UNSPECIFIED SNOMED Code(s): 48060055 Time with Patient: Less than 30
[2019-01-07] MEDS: VANCOMYCIN 1,750 MG in SODIUM CHLORIDE 0.9% 500 ML 500 ML IVPB SCH (14:35)
--- NOTE | 2019-01-07 15:16 | P.PN ---
Subjective Patient is admitted after suicide attempt with the knife and laceration to the left forearm which need delayed closure an orthopedic surgery will do that tomorrow. Patient also has severe peripheral vascular disease with the possible dry gangrene because of leukocytosis and patient was started on antibiotics and infectious disease will evaluate the patient. White blood cell count has come down serum random creatinine has come down significantly along with blood sugars although they're not the controlled I'm increasing pre-meal as well as long- acting insulin. 01/07/2019 Patient's laceration was sutured and repaired, patient will undergo amputation of the left great toe patient remains on vancomycin and Zosyn. Patient's serum sodium improved to 1:30 4C serum creatinine improved to 1.09. Blood sugars are well controlled although his insulin long-acting need to be cut down to 30 units as he will be nothing by mouth for amputation procedure tomorrow leukocytosis improved. Psychiatry evaluated the patient Constitutional: Denied any fatigue denied any fever. Cardio vascular: denied any chest pain, palpitations Gastrointestinal denied any nausea vomiting Pulmonary: Denied any shortness of breath cough Neurologic denied any new focal deficits All inpatient medications were reviewed and appropriate changes in these medications as dictated in the interval history and assessment and plan. Objective - Vital Signs Vital signs: Vital Signs Temp 98.5 F 01/07/19 14:59 Pulse 113 H 01/07/19 14:59 Resp 16 01/07/19 14:59 BP 101/68 01/07/19 14:59 Pulse Ox 100 01/07/19 14:59 Intake & Output 01/06/19 01/07/19 01/07/19 18:59 06:59 18:59 Intake Total 1300 350 Output Total 125 1 Balance 1175 349 Intake: IV 350 Intake, IV Titration 1300 Amount Piperacillin-Tazobactam 3 100 .375 gm In Sodium Chloride 0.9% 100 ml @ 25 mls/hr IVPB Q8HR [facility] Rx# :[id number] Sodium Chloride 0.9% 1, 700 000 ml @ 100 mls/hr IV . Q10H [facility] Rx#:[id number] Vancomycin 1,750 mg In 500 Sodium Chloride 0.9% 500 ml 500 ml @ 167 mls/hr IVPB Q12HR [facility] Rx#: [id number] Output: Urine 125 Estimated Blood Loss 1 Other: # Voids 1 2 # Bowel Movements 1 - Exam PHYSICAL EXAMINATION: GENERAL: The patient is alert and oriented x3, not in any acute distress. Well developed, well nourished. HEENT: Pupils are round and equally reacting to light. EOMI. No scleral icterus. No conjunctival pallor. Normocephalic, atraumatic. No pharyngeal erythema. No thyromegaly. CARDIOVASCULAR: S1 and S2 present. No murmurs, rubs, or gallops. PULMONARY: Chest is clear to auscultation, no wheezing or crackles. ABDOMEN: Soft, nontender, nondistended, normoactive bowel sounds. No palpable organomegaly. MUSCULOSKELETAL: No joint swelling or deformity. EXTREMITIES: No cyanosis, clubbing, or pedal edema. Patient appears to have gangrene of the left great toe which appears to be mostly dry gangrene there is no evidence of osteo-mellitus as per the x-ray laceration of the left wrist that was repaired NEUROLOGICAL: Gross neurological examination did not reveal any focal deficits. SKIN: No rashes. - Labs CBC & Chem 7: 01/07/19 10:28 01/07/19 10:28 Labs: Abnormal Lab Results - Last 24 Hours (Table) 01/06/19 01/06/19 01/06/19 Range/Units 07:14 16:55 20:42 WBC (3.8-10.6) k/uL RBC (4.30-5.90) m/uL Hgb (13.0-17.5) gm/dL Hct (39.0-53.0) % Sodium (137-145) mmol/L BUN (9-20) mg/dL Glucose (74-99) mg/dL POC Glucose (mg/dL) 245 H 178 H (75-99) mg/dL Hemoglobin A1c 11.0 H (4.0-6.0) % Calcium (8.4-10.2) mg/dL 01/07/19 01/07/19 01/07/19 Range/Units 06:18 08:22 09:15 WBC (3.8-10.6) k/uL RBC (4.30-5.90) m/uL Hgb (13.0-17.5) gm/dL Hct (39.0-53.0) % Sodium (137-145) mmol/L BUN (9-20) mg/dL Glucose (74-99) mg/dL POC Glucose (mg/dL) 107 H 135 H 146 H (75-99) mg/dL Hemoglobin A1c (4.0-6.0) % Calcium (8.4-10.2) mg/dL 01/07/19 01/07/19 01/07/19 Range/Units 10:28 10:28 11:30 WBC 15.4 H (3.8-10.6) k/uL RBC 2.60 L (4.30-5.90) m/uL Hgb 7.6 L (13.0-17.5) gm/dL Hct 23.9 L (39.0-53.0) % Sodium 134 L (137-145) mmol/L BUN 29 H (9-20) mg/dL Glucose 145 H (74-99) mg/dL POC Glucose (mg/dL) 227 H (75-99) mg/dL Hemoglobin A1c (4.0-6.0) % Calcium 8.2 L (8.4-10.2) mg/dL Microbiology - Last 24 Hours (Table) 01/05/19 20:01 Blood Culture - Preliminary Blood No Growth after 24 hours Assessment and Plan Plan: -Peripheral vascular disease with gangrene of the left great toe mostly appears to be dry gangrene clinically since he has elevated white blood cell count which improved patient was started on vancomycin and Zosyn cultures were negative so far, patient will undergo amputation of the left great toe tomorrow -Laceration of the left wrist and suicide attempt: Status post repair -Depression and suicide attempt: Psychiatric evaluated the patient -Type 2 diabetes mellitus uncontrolled blood sugars due to noncompliance of medications , better controlled now -Acute renal failure on chronic kidney disease stage II chronic kidney disease secondary to diabetic nephropathy acute renal failure prerenal azotemia improved now with IV fluids-Hyperkalemia secondary to acute renal failure improved with IV fluids -Hyponatremia: Hypovolemic hyponatremia along with pseudohyponatremia improved now with IV fluids, patient will be continued on IV fluids 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 -Marijuana use and smoking She will need both pharmacologic GI and DVT prophylaxis
[2019-01-07 15:36] VITALS: BMI 34.4
[2019-01-07 16:31] LABS: Glucose,Whole Blood 304 mg/dL (75-99)
[2019-01-07 20:47] LABS: Glucose,Whole Blood 182 mg/dL (75-99)
[2019-01-07] MEDS ORDERED: INSULIN DETEMIR (LEVEMIR) 100 UNIT/ML SYR SQ ONE (21:00)
[2019-01-07] MEDS: ATORVASTATIN 80 MG TAB PO SCH (21:09)
[2019-01-08] MEDS: HEPARIN SODIUM,PORCINE 5,000 UNIT/ML 1 ML VIAL SQ SCH ×3 (00:31→17:02)
[2019-01-08] MEDS: PIPERACILLIN-TAZOBACTAM 3.375 GM in SODIUM CHLORIDE 0.9% 100 ML IVPB SCH ×3 (00:41→17:03)
[2019-01-08] MEDS: VANCOMYCIN 1,750 MG in SODIUM CHLORIDE 0.9% 500 ML 500 ML IVPB SCH ×2 (03:14→15:12)
[2019-01-08 06:11] LABS: Basophils % (A) 0 %; Eosinophils # (A) 0.1 k/uL (0-0.7); Eosinophils % (A) 1 %; HCT 20.2 % (39.0-53.0); Hypochromasia Slight; Lymphocytes # (A) 1.9 k/uL (1.0-4.8); Lymphocytes % (A) 14 %; MCH 30.2 pg (25.0-35.0); MCHC 33.5 g/dL (31.0-37.0); Mean Platelet Volume 8.1; Monocytes # (A) 0.9 k/uL (0-1.0); Monocytes % (A) 7 %; Neutrophils # (A) 10.4 k/uL (1.3-7.7); Neutrophils % (A) 76 %; Platelet Count 273 k/uL (150-450); RBC 2.25 m/uL (4.30-5.90); RDW 15.7 % (11.5-15.5); WBC 13.6 k/uL (3.8-10.6)
[2019-01-08 06:17] LABS: Anion Gap 6 mmol/L; Blood Urea Nitrogen 18 mg/dL (9-20); Carbon Dioxide 17 mmol/L (22-30); Chloride 114 mmol/L (98-107); Glucose 78 mg/dL (74-99); Potassium 3.1 mmol/L (3.5-5.1); Sodium 137 mmol/L (137-145)
[2019-01-08 06:26] LABS: HGB 6.8 gm/dL (13.0-17.5)
[2019-01-08 06:34] LABS: Calcium 5.7 mg/dL (8.4-10.2)
[2019-01-08] MEDS: LACTATED RINGERS 1,000 ML IV SCH (06:44)
[2019-01-08] MEDS ORDERED: IV FLUID CONTINUATION 1,000 ML IV ONE (06:48)
[2019-01-08] MEDS ORDERED: DEXAMETHASONE SOD PHOS (MDV) 100 MG/10 ML VIAL IVP ONE (07:09)
[2019-01-08] MEDS ORDERED: ONDANSETRON 4 MG/2 ML VIAL IVP ONE (07:09)
[2019-01-08] MEDS ORDERED: POTASSIUM CHLORIDE 20 MEQ in WATER FOR INJECTION 1 100ML.BAG IVPB STA (07:12)
[2019-01-08] MEDS ORDERED: fentaNYL (PF) 50 MCG/ML 2 ML AMP ONE (07:26)
[2019-01-08] MEDS ORDERED: PROPOFOL 10 MG/ML 20 ML VIAL IV ONE (07:26)
[2019-01-08] MEDS ORDERED: LIDOCAINE 1% INJ 10MG/ML (20 ML MDV) SQ ONE (07:26)
[2019-01-08] MEDS ORDERED: MIDAZOLAM 2 MG/2 ML VIAL ONE (07:26)
--- NOTE | 2019-01-08 07:49 | P.CONS ---
History of Present Illness - Reason for Consult Consult date: 01/07/19 - Chief Complaint Self-harm - History of Present Illness 58-year-old male with multiple medical troubles including diabetes peripheral vascular disease and is a relates to difficulties with mental illness in had a suicide attempt with injury to his left arm. The 18 cm laceration is no been repaired by orthopedics consult was requested regarding antibiotic therapy especially regarding the gangrenous left foot great toe. Patient is also being seen by vascular surgery. Patient was at this time is relatively well. Pain at the surgical site he is without fevers chills rigors or sweats. He has uncontrolled diabetes mellitus with a hemoglobin A1c of 11 Review of Systems HEENT:Denies headache or acute visual change. Denies sinus or mouth discomforts. Denies neck stiffness or pain. Denies significant oral cavity pain. Denies difficulty on swallowing. Lungs: Denies significant shortness of breath, cough, sputum production, or hemoptysis. Cardiovascular: Denies significant shortness of breath, chest pain, chest wall pain, orthopnea, dyspnea on exertion, syncope Gastrointestinal:Denies nausea, vomiting, diarrhea, constipation, hematemesis, melena, hematochezia. No no significant change of bowel habit noticed. Musculoskeletal: denies significant myalgias or arthralgias. No new joint swelling. Denies new back pain. Skin: As per the HPI Neuro: Denies headache or visual change. Denies any new onset weakness or difficulty with ambulation. Denies falls or seizures. 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 History of Any Multi-Drug Resistant Organisms: None Reported Past Surgical History: Adenoidectomy, Tonsillectomy Additional Past Surgical History / Comment(s): Colonoscopy with benign polypectomies Past Anesthesia/Blood Transfusion Reactions: No Reported Reaction Past Psychological History: Anxiety Additional Psychological History / Comment(s): Pt lives alone. He is independent. He was in the and is stationed in [place] as well as in [place], he is considerably too young to be involved in the [place] conflict. No illnesses while he was in . 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 stopped smoking about a year ago. Denies significant alcohol or recreational drug use. His parents are highly involved. No animal exposures. No recent travel. Denied any sexual partners at this time. Smoking Status: Current some day smoker Past Alcohol Use History: None Reported Additional Past Alcohol Use History / Comment(s): SMOKING: QUIT 2015, FOR 40 YRS, 2-3 PPD. Past Drug Use History: Marijuana Additional Drug Use History / Comment(s): Pt states he quit smoking marijuana and that he has not smoked marijuana in 4 months. - Past Family History Father Family Medical History: Diabetes Mellitus Additional Family Medical History / Comment(s): Father had gallbladder disease. He is 77yrs old. Mother Family Medical History: Hyperlipidemia Medications and Allergies Home Medications and Allergies Comment(s): Current Medications Atorvastatin Calcium (Lipitor) 80 mg PO HS [facility] Last Admin: 01/07/19 21:09 Dose: 80 mg Documented by: Famotidine (Pepcid) 20 mg PO BID [facility] Last Admin: 01/07/19 21:09 Dose: 20 mg Documented by: Heparin Sodium (Porcine) (Heparin) 5,000 unit SQ Q8HR [facility] Last Admin: 01/08/19 00:31 Dose: Not Given Documented by: Piperacillin Sod/Tazobactam (Sod 3.375 gm/ Sodium Chloride) 100 mls @ 25 mls/hr IVPB Q8HR [facility] Last Admin: 01/08/19 00:41 Dose: 25 mls/hr Documented by: Sodium Chloride (Saline 0.9%) 1,000 mls @ 100 mls/hr IV .Q10H [facility] Last Admin: 01/07/19 23:00 Dose: 100 mls/hr Documented by: Vancomycin HCl 1,750 mg/ (Sodium Chloride) 500 mls @ 167 mls/hr IVPB Q12H [facility] Last Admin: 01/08/19 03:14 Dose: 167 mls/hr Documented by: Lactated Ringer's (Lactated Ringers) 1,000 mls @ 20 mls/hr IV .Q24H [facility] Last Admin: 01/08/19 06:44 Dose: Not Given Documented by: Potassium Chloride 20 meq/ IV (Solution) 100 mls @ 50 mls/hr IVPB ONCE STA Stop: 01/08/19 09:11 Insulin Aspart (Novolog) 0 unit SQ ACHS [facility]; Protocol Last Admin: 01/07/19 21:09 Dose: 3 unit Documented by: Insulin Aspart (Novolog) 10 unit SQ AC-SUPPER [facility] Last Admin: 01/07/19 17:10 Dose: 10 unit Documented by: Insulin Detemir (Levemir) 42 unit SQ HS [facility] Linagliptin (Tradjenta) 5 mg PO DAILY [facility] Last Admin: 01/07/19 09:24 Dose: 5 mg Documented by: Lorazepam (Ativan) 0.5 mg IV Q6HR PRN PRN Reason: Anxiety Last Admin: 01/07/19 21:07 Dose: 0.5 mg Documented by: Naloxone HCl (Narcan) 0.2 mg IV Q2M PRN PRN Reason: Opioid Reversal Sertraline HCl (Zoloft) 50 mg PO DAILY [facility] Last Admin: 01/07/19 09:24 Dose: 50 mg Documented by: Tramadol HCl (Ultram) 50 mg PO QID PRN PRN Reason: Pain Last Admin: 01/07/19 17:13 Dose: 50 mg Documented by: Home Medications Medication Instructions Recorded Confirmed Type Atenolol 25 mg PO QAM 08/15/16 01/05/19 History Atorvastatin [Lipitor] 80 mg PO HS 08/15/16 01/05/19 History metFORMIN HCL 1,000 mg PO BID 08/15/16 01/05/19 History ALPRAZolam [Xanax] 1 mg PO DAILY 06/16/17 01/05/19 History Insulin Glargine [Lantus] 35 unit SQ HS 10/17/17 01/05/19 History Alogliptin Benzoate [Alogliptin] 25 mg PO DAILY 01/05/19 01/05/19 History Insulin Aspart [NovoLOG Flexpen] 3 units SQ W/SUPPER 01/05/19 01/05/19 History Sertraline [Zoloft] 50 mg PO DAILY 01/05/19 01/05/19 History Allergies Allergy/AdvReac Type Severity Reaction Status Date / Time Tetanus Vaccines and Toxoid Allergy Rash/Hives Verified 01/05/19 11:42 Physical Exam Vitals: Vital Signs Temp Pulse Resp BP Pulse Ox 01/08/19 06:51 97.8 F 104 H 18 113/69 98 01/08/19 06:14 98.1 F 102 H 18 108/73 99 01/08/19 01:10 99.4 F 104 H 18 106/69 94 L 01/07/19 19:15 98.6 F 109 H 18 115/67 100 01/07/19 16:00 113 H 16 01/07/19 14:59 98.5 F 113 H 16 101/68 100 01/07/19 10:00 104 H 119/78 96 01/07/19 09:45 107 H 93/65 100 01/07/19 09:30 104 H 104/67 97 01/07/19 09:15 107 H 112/74 97 01/07/19 09:00 97.9 F 111 H 16 96/62 95 01/07/19 08:45 107 H 16 99/56 95 01/07/19 08:32 104 H 16 95/56 93 L 01/07/19 08:17 102 H 16 107/53 93 L 01/07/19 08:01 97.0 F L 105 H 20 116/68 100 01/07/19 08:00 107 H 16 Intake and Output 01/07/19 01/08/19 01/08/19 22:59 06:59 14:59 Intake Total 200 300 Balance 200 300 Intake: IV 300 Intake, IV Titration 200 Amount Sodium Chloride 0.9% 1, 200 000 ml @ 100 mls/hr IV . Q10H [facility] Rx#:[id number] Other: # Voids 1 Weight 108.862 kg Pleasant obese 58-year-old male, not in acute distress HEENT: Anicteric conjunctiva are pink and moist nasal mucosa grossly intact without significant lesions, there is no thrush. Neck: The neck is supple without significant lymphadenopathy or thyromegaly. Lungs: Good bilateral air entry without significant crackles or wheezing. There is no significant bronchial sounds. There is no egophony or dullness. Heart: Regular rate and rhythm with an audible S1-S2, no S3 no S4. There is no significant murmur click or rub, PMI was nondisplaced. Abdomen: Positive bowel sounds soft and nontender without palpable masses or organomegaly. There was no guarding or rebound. Extremities: The left upper extremity reveals evidence of the surgical dressing in place and they just returned back from his repair, does have a dry gangrenous changes to the left great toe. There is minimal surrounding erythema. Is no ascending lymphangitis or abnormal lymphadenopathy in the left groin, no other abnormal lymph nodes noted Neuro: Awake alert oriented to person place and time. The patient is evidence of significant and dense peripheral neuropathy to the lower extremities Results CBC & Chem 7: 01/08/19 05:51 01/08/19 05:51 Labs: Abnormal Lab Results - Last 24 Hours (Table) 01/07/19 01/07/19 01/07/19 Range/Units 08:22 09:15 10:28 WBC 15.4 H (3.8-10.6) k/uL RBC 2.60 L (4.30-5.90) m/uL Hgb 7.6 L (13.0-17.5) gm/dL Hct 23.9 L (39.0-53.0) % RDW (11.5-15.5) % Neutrophils # (1.3-7.7) k/uL Sodium (137-145) mmol/L Potassium (3.5-5.1) mmol/L Chloride (98-107) mmol/L Carbon Dioxide (22-30) mmol/L BUN (9-20) mg/dL Glucose (74-99) mg/dL POC Glucose (mg/dL) 135 H 146 H (75-99) mg/dL Calcium (8.4-10.2) mg/dL 01/07/19 01/07/19 01/07/19 Range/Units 10:28 11:30 16:29 WBC (3.8-10.6) k/uL RBC (4.30-5.90) m/uL Hgb (13.0-17.5) gm/dL Hct (39.0-53.0) % RDW (11.5-15.5) % Neutrophils # (1.3-7.7) k/uL Sodium 134 L (137-145) mmol/L Potassium (3.5-5.1) mmol/L Chloride (98-107) mmol/L Carbon Dioxide (22-30) mmol/L BUN 29 H (9-20) mg/dL Glucose 145 H (74-99) mg/dL POC Glucose (mg/dL) 227 H 304 H (75-99) mg/dL Calcium 8.2 L (8.4-10.2) mg/dL 01/07/19 01/08/19 01/08/19 Range/Units 20:46 05:51 05:51 WBC 13.6 H (3.8-10.6) k/uL RBC 2.25 L (4.30-5.90) m/uL Hgb 6.8 L* (13.0-17.5) gm/dL Hct 20.2 L (39.0-53.0) % RDW 15.7 H (11.5-15.5) % Neutrophils # 10.4 H (1.3-7.7) k/uL Sodium (137-145) mmol/L Potassium 3.1 L (3.5-5.1) mmol/L Chloride 114 H (98-107) mmol/L Carbon Dioxide 17 L (22-30) mmol/L BUN (9-20) mg/dL Glucose (74-99) mg/dL POC Glucose (mg/dL) 182 H (75-99) mg/dL Calcium 5.7 L* (8.4-10.2) mg/dL Microbiology - Last 24 Hours (Table) 01/05/19 20:01 Blood Culture - Preliminary Blood No Growth after 48 hours Laboratory Results WBC 13.6 k/uL (3.8-10.6) H 01/08/19 05:51 RBC 2.25 m/uL (4.30-5.90) L 01/08/19 05:51 Hgb 6.8 gm/dL (13.0-17.5) L* 01/08/19 05:51 Hct 20.2 % (39.0-53.0) L 01/08/19 05:51 MCV 90.0 fL (80.0-100.0) 01/08/19 05:51 MCH 30.2 pg (25.0-35.0) 01/08/19 05:51 MCHC 33.5 g/dL (31.0-37.0) 01/08/19 05:51 RDW 15.7 % (11.5-15.5) H 01/08/19 05:51 Plt Count 273 k/uL (150-450) 01/08/19 05:51 Neutrophils % 76 % 01/08/19 05:51 Lymphocytes % 14 % 01/08/19 05:51 Monocytes % 7 % 01/08/19 05:51 Eosinophils % 1 % 01/08/19 05:51 Basophils % 0 % 01/08/19 05:51 Neutrophils # 10.4 k/uL (1.3-7.7) H 01/08/19 05:51 Lymphocytes # 1.9 k/uL (1.0-4.8) 01/08/19 05:51 Monocytes # 0.9 k/uL (0-1.0) 01/08/19 05:51 Eosinophils # 0.1 k/uL (0-0.7) 01/08/19 05:51 Basophils # 0.0 k/uL (0-0.2) 01/08/19 05:51 Hypochromasia Slight 01/08/19 05:51 Sodium 137 mmol/L (137-145) 01/08/19 05:51 Potassium 3.1 mmol/L (3.5-5.1) L 01/08/19 05:51 Chloride 114 mmol/L (98-107) H 01/08/19 05:51 Carbon Dioxide 17 mmol/L (22-30) L 01/08/19 05:51 Anion Gap 6 mmol/L 01/08/19 05:51 BUN 18 mg/dL (9-20) 01/08/19 05:51 Creatinine 0.78 mg/dL (0.66-1.25) 01/08/19 05:51 Est GFR (CKD-EPI)AfAm >90 (>60 ml/min/1.73 sqM) 01/08/19 05:51 Est GFR (CKD-EPI)NonAf >90 (>60 ml/min/1.73 sqM) 01/08/19 05:51 Glucose 78 mg/dL (74-99) 01/08/19 05:51 POC Glucose (mg/dL) 182 mg/dL (75-99) H 01/07/19 20:46 POC Glu [employer] ID Carlton Lenz 01/07/19 20:[address] Glu mg/dL 269 01/06/19 07:14 Hemoglobin A1c 11.0 % (4.0-6.0) H 01/06/19 07:14 Plasma Lactic Acid [place] 1.8 mmol/L (0.7-2.0) 01/06/19 01:32 Calcium 5.7 mg/dL (8.4-10.2) L* 01/08/19 05:51 TSH 4.950 mIU/L (0.465-4.680) H 01/05/19 19:16 Urine Color Yellow 01/05/19 19:16 Urine Appearance Clear (Clear) 01/05/19 19:16 Urine pH 5.0 (5.0-8.0) 01/05/19 19:16 Ur Specific [place] 1.021 (1.001-1.035) 01/05/19 19:16 Urine Protein 1+ (Negative) H 01/05/19 19:16 Urine Glucose (UA) 4+ (Negative) H 01/05/19 19:16 Urine Ketones Negative (Negative) 01/05/19 19:16 Urine Blood Trace (Negative) H 01/05/19 19:16 Urine Nitrite Negative (Negative) 01/05/19 19:16 Urine Bilirubin Negative (Negative) 01/05/19 19:16 Urine Urobilinogen <2.0 mg/dL (<2.0) 01/05/19 19:16 Ur Leukocyte Esterase Negative (Negative) 01/05/19 19:16 Urine RBC 1 /hpf (0-5) 01/05/19 19:16 Urine WBC 1 /hpf (0-5) 01/05/19 19:16 Hyaline Casts 23 /lpf (0-2) H 01/05/19 19:16 Urine Mucus Rare /hpf (None) H 01/05/19 19:16 Vancomycin Trough 14.3 ug/mL 01/07/19 10:28 Urine Opiates Screen Not Detected (NotDetected) 01/05/19 17:45 Ur Oxycodone Screen Not Detected (NotDetected) 01/05/19 17:45 Urine Methadone Screen Not Detected (NotDetected) 01/05/19 17:45 Ur Propoxyphene Screen Not Detected (NotDetected) 01/05/19 17:45 Ur Barbiturates Screen Not Detected (NotDetected) 01/05/19 17:45 U Tricyclic Antidepress Not Detected (NotDetected) 01/05/19 17:45 Ur Phencyclidine Scrn Not Detected (NotDetected) 01/05/19 17:45 Ur Amphetamines Screen Not Detected (NotDetected) 01/05/19 17:45 U Methamphetamines Scrn Not Detected (NotDetected) 01/05/19 17:45 U Benzodiazepines Scrn Not Detected (NotDetected) 01/05/19 17:45 Urine Cocaine Screen Not Detected (NotDetected) 01/05/19 17:45 U Marijuana (THC) Screen Detected (NotDetected) H 01/05/19 17:45 Microbiology 01/05/19 20:01 Blood Blood Culture - Preliminary No Growth after 48 hours Assessment and Plan (1) Laceration of left wrist Current Visit: Yes Status: Acute Code(s): S61.512A - LACERATION WITHOUT FOREIGN BODY OF LEFT WRIST, INIT ENCNTR SNOMED Code(s): 441431691 (2) 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 Does have a dry gangrenous changes left great toe. He has been seen by vascular surgery with plans for amputation in the near future. Antibiotic therapy for same with Zosyn which is an appropriate choice. He will be discharged this can be transitioned to oral Augmentin the timeframe before the planned amputation to the dry gangrenous changes to the left foot. It is related that he had vascular workup in the past. He needs improved control of blood glucose if there is to be adequate healing of the left arm injury and amputation site to the left foot at the time of that surgery. Multivitamin with zinc should be added to help his nutritional status. Current Visit: No Status: Acute Code(s): E08.621 - DIABETES MELLITUS DUE TO UNDERLYING CONDITION W FOOT ULCER; L97.524 - NON-PRS CHRONIC ULCER OTH PRT LEFT FOOT W NECROSIS OF BONE SNOMED Code(s): 467042698
[2019-01-08 08:26] LABS: Glucose,Whole Blood 129 mg/dL (75-99)
--- NOTE | 2019-01-08 08:38 | OP ---
OPERATIVE REPORT SURGEON: Sandoval Irby MD PREOPERATIVE DIAGNOSIS: Left foot big toe gangrene. POSTOPERATIVE DIAGNOSIS: OPERATION: Amputation left foot big toe at the proximal phalanx. DESCRIPTION OF PROCEDURE: Patient was brought to the operating room. Left foot was prepped and draped in the usual sterile manner and 1% lidocaine infiltrated for the ring block with IV sedation. Incision was made on the dorsal aspect of the foot, deepened through skin, fat and fascia and deepened to the tendon. Then the posterior flap incision was made which was longer than the anterior flap incision, deepened through skin, fat, and fascia until we reached the proximal phalanx. Using bone cutter, we divided the proximal phalanx. The specimen was removed. No active bleeding was noted. Hemostasis was controlled. The fascia was approximated 3-0 Vicryl and skin was closed with 3-0 nylon with mattress interrupted suture. Dressing applied. The patient tolerated the procedure well. MMODL / IJN: [id number] /
[2019-01-08] MEDS: SERTRALINE 50 MG TAB PO SCH (08:55)
[2019-01-08] MEDS: LINAGLIPTIN 5 MG TABLET PO SCH (08:55)
[2019-01-08] MEDS: FAMOTIDINE 20 MG TAB PO SCH ×2 (08:55→21:11)
[2019-01-08] MEDS: SODIUM CHLORIDE 0.9% 1,000 ML IV SCH ×2 (08:58→21:08)
[2019-01-08] MEDS: INSULIN ASPART (NovoLOG) 100 UNIT/ML VIAL SQ SCH ×5 (09:04→21:11)
[2019-01-08 12:09] LABS: Glucose,Whole Blood 315 mg/dL (75-99)
[2019-01-08] MEDS: traMADol 50 MG TAB PO PRN ×2 (14:21→21:11)
[2019-01-08] MEDS: LORazepam 2 MG/ML INJ IV PRN (14:25)
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
[2019-01-08 16:44] LABS: Glucose,Whole Blood 315 mg/dL (75-99)
--- NOTE | 2019-01-08 16:49 | P.PN ---
Subjective Progress Note Date: 01/08/19 Principal diagnosis: Status post laceration repair left wrist Patient evaluated today at bedside, is resting comfortably. He denies any acute pain involving the left wrist. The postoperative bandages in good position. He denies any paresthesias involving the fingers or hand. Objective - Vital Signs Vital signs: Vital Signs Temp 97.9 F 01/08/19 15:00 Pulse 96 01/08/19 15:00 Resp 16 01/08/19 15:00 BP 126/71 01/08/19 15:00 Pulse Ox 96 01/08/19 15:00 Intake & Output 01/07/19 01/08/19 01/08/19 18:59 06:59 18:59 Intake Total 350 500 610 Output Total 1 5 Balance 349 500 605 Weight 108.862 kg Intake: IV 350 300 300 Intake, IV Titration 200 Amount Sodium Chloride 0.9% 1, 200 000 ml @ 100 mls/hr IV . Q10H [facility] Rx#:[id number] Blood Product 310 Rc As-1 Unit 310 [id number] Output: Estimated Blood Loss 1 5 Other: # Voids 2 1 3 # Bowel Movements 1 1 - Exam Left upper extremity: Postop bandages in position and condition, minimal soft tissue swelling noted in the hand. He is able to wiggle the fingers with no difficulty. Sensation to light touch is intact throughout the fingers. - Labs CBC & Chem 7: 01/08/19 05:51 01/08/19 05:51 Labs: Abnormal Lab Results - Last 24 Hours (Table) 01/07/19 01/08/19 01/08/19 Range/Units 20:46 05:51 05:51 WBC 13.6 H (3.8-10.6) k/uL RBC 2.25 L (4.30-5.90) m/uL Hgb 6.8 L* (13.0-17.5) gm/dL Hct 20.2 L (39.0-53.0) % RDW 15.7 H (11.5-15.5) % Neutrophils # 10.4 H (1.3-7.7) k/uL Potassium 3.1 L (3.5-5.1) mmol/L Chloride 114 H (98-107) mmol/L Carbon Dioxide 17 L (22-30) mmol/L POC Glucose (mg/dL) 182 H (75-99) mg/dL Calcium 5.7 L* (8.4-10.2) mg/dL Crossmatch 01/08/19 01/08/19 01/08/19 Range/Units 07:29 08:23 11:57 WBC (3.8-10.6) k/uL RBC (4.30-5.90) m/uL Hgb (13.0-17.5) gm/dL Hct (39.0-53.0) % RDW (11.5-15.5) % Neutrophils # (1.3-7.7) k/uL Potassium (3.5-5.1) mmol/L Chloride (98-107) mmol/L Carbon Dioxide (22-30) mmol/L POC Glucose (mg/dL) 129 H 315 H (75-99) mg/dL Calcium (8.4-10.2) mg/dL Crossmatch See Detail 01/08/19 Range/Units 16:43 WBC (3.8-10.6) k/uL RBC (4.30-5.90) m/uL Hgb (13.0-17.5) gm/dL Hct (39.0-53.0) % RDW (11.5-15.5) % Neutrophils # (1.3-7.7) k/uL Potassium (3.5-5.1) mmol/L Chloride (98-107) mmol/L Carbon Dioxide (22-30) mmol/L POC Glucose (mg/dL) 315 H (75-99) mg/dL Calcium (8.4-10.2) mg/dL Crossmatch Microbiology - Last 24 Hours (Table) 01/05/19 20:01 Blood Culture - Preliminary Blood No Growth after 48 hours Assessment and Plan Plan: Assessment: 1. Postop day #1 status post laceration repair left wrist Plan: We'll change postop dressing tomorrow, continue to keep current dressing in place Avoid strenuous activity with left hand and wrist at this time Further recommendations to follow Time with Patient: Less than 30
[2019-01-08 20:12] LABS: Glucose,Whole Blood 402 mg/dL (75-99)
[2019-01-08] MEDS: INSULIN DETEMIR (LEVEMIR) 100 UNIT/ML SYR SQ SCH (21:11)
[2019-01-08] MEDS: ATORVASTATIN 80 MG TAB PO SCH (21:11)
--- NOTE | 2019-01-08 23:03 | P.PN ---
Subjective Progress Note Date: 01/08/19 58-year-old male with multiple medical troubles including diabetes peripheral vascular disease and is a relates to difficulties with mental illness in had a suicide attempt with injury to his left arm. The 18 cm laceration is no been repaired by orthopedics consult was requested regarding antibiotic therapy especially regarding the gangrenous left foot great toe. Patient is also being seen by vascular surgery. Patient was at this time is relatively well. Pain at the surgical site he is without fevers chills rigors or sweats. He has uncontrolled diabetes mellitus with a hemoglobin A1c of 11 01/08/2019 patient is feeling somewhat better. The to amputation as occurred. He is denying any other new acute complaints Objective - Vital Signs Vital signs: Vital Signs Temp 98.3 F 01/08/19 19:35 Pulse 72 01/08/19 19:35 Resp 17 01/08/19 19:35 BP 127/81 01/08/19 19:35 Pulse Ox 98 01/08/19 19:35 Intake & Output 01/08/19 01/08/19 01/09/19 06:59 18:59 06:59 Intake Total 500 610 Output Total 5 Balance 500 605 Intake: IV 300 300 Intake, IV Titration 200 Amount Sodium Chloride 0.9% 1, 200 000 ml @ 100 mls/hr IV . Q10H [facility] Rx#:[id number] Blood Product 310 Rc As-1 Unit 310 [id number] Output: Estimated Blood Loss 5 Other: # Voids 1 3 3 # Bowel Movements 1 - Exam Pleasant obese 58-year-old male, not in acute distress HEENT: Anicteric conjunctiva are pink and moist nasal mucosa grossly intact without significant lesions, there is no thrush. Neck: The neck is supple without significant lymphadenopathy or thyromegaly. Lungs: Good bilateral air entry without significant crackles or wheezing. There is no significant bronchial sounds. There is no egophony or dullness. Heart: Regular rate and rhythm with an audible S1-S2, no S3 no S4. There is no significant murmur click or rub, PMI was nondisplaced. Abdomen: Positive bowel sounds soft and nontender without palpable masses or organomegaly. There was no guarding or rebound. Extremities: The left upper extremity reveals evidence of the surgical dressing in place is not amputation of the left great toe there is some breakthrough bleeding on the dressing and nursing staff reinforces the dressing. Patient denies discomfort. Neuro: Awake alert oriented to person place and time. The patient is evidence of significant and dense peripheral neuropathy to the lower extremities - Labs CBC & Chem 7: 01/08/19 05:51 01/08/19 05:51 Labs: Abnormal Lab Results - Last 24 Hours (Table) 01/08/19 01/08/19 01/08/19 Range/Units 05:51 05:51 07:29 WBC 13.6 H (3.8-10.6) k/uL RBC 2.25 L (4.30-5.90) m/uL Hgb 6.8 L* (13.0-17.5) gm/dL Hct 20.2 L (39.0-53.0) % RDW 15.7 H (11.5-15.5) % Neutrophils # 10.4 H (1.3-7.7) k/uL Potassium 3.1 L (3.5-5.1) mmol/L Chloride 114 H (98-107) mmol/L Carbon Dioxide 17 L (22-30) mmol/L POC Glucose (mg/dL) (75-99) mg/dL Calcium 5.7 L* (8.4-10.2) mg/dL Crossmatch See Detail 01/08/19 01/08/19 01/08/19 Range/Units 08:23 11:57 16:43 WBC (3.8-10.6) k/uL RBC (4.30-5.90) m/uL Hgb (13.0-17.5) gm/dL Hct (39.0-53.0) % RDW (11.5-15.5) % Neutrophils # (1.3-7.7) k/uL Potassium (3.5-5.1) mmol/L Chloride (98-107) mmol/L Carbon Dioxide (22-30) mmol/L POC Glucose (mg/dL) 129 H 315 H 315 H (75-99) mg/dL Calcium (8.4-10.2) mg/dL Crossmatch 01/08/19 Range/Units 20:00 WBC (3.8-10.6) k/uL RBC (4.30-5.90) m/uL Hgb (13.0-17.5) gm/dL Hct (39.0-53.0) % RDW (11.5-15.5) % Neutrophils # (1.3-7.7) k/uL Potassium (3.5-5.1) mmol/L Chloride (98-107) mmol/L Carbon Dioxide (22-30) mmol/L POC Glucose (mg/dL) 402 H (75-99) mg/dL Calcium (8.4-10.2) mg/dL Crossmatch Microbiology - Last 24 Hours (Table) 01/05/19 20:01 Blood Culture - Preliminary Blood No Growth after 48 hours Laboratory Results WBC 13.6 k/uL (3.8-10.6) H 01/08/19 05:51 RBC 2.25 m/uL (4.30-5.90) L 01/08/19 05:51 Hgb 6.8 gm/dL (13.0-17.5) L* 01/08/19 05:51 Hct 20.2 % (39.0-53.0) L 01/08/19 05:51 MCV 90.0 fL (80.0-100.0) 01/08/19 05:51 MCH 30.2 pg (25.0-35.0) 01/08/19 05:51 MCHC 33.5 g/dL (31.0-37.0) 01/08/19 05:51 RDW 15.7 % (11.5-15.5) H 01/08/19 05:51 Plt Count 273 k/uL (150-450) 01/08/19 05:51 Neutrophils % 76 % 01/08/19 05:51 Lymphocytes % 14 % 01/08/19 05:51 Monocytes % 7 % 01/08/19 05:51 Eosinophils % 1 % 01/08/19 05:51 Basophils % 0 % 01/08/19 05:51 Neutrophils # 10.4 k/uL (1.3-7.7) H 01/08/19 05:51 Lymphocytes # 1.9 k/uL (1.0-4.8) 01/08/19 05:51 Monocytes # 0.9 k/uL (0-1.0) 01/08/19 05:51 Eosinophils # 0.1 k/uL (0-0.7) 01/08/19 05:51 Basophils # 0.0 k/uL (0-0.2) 01/08/19 05:51 Hypochromasia Slight 01/08/19 05:51 Sodium 137 mmol/L (137-145) 01/08/19 05:51 Potassium 3.1 mmol/L (3.5-5.1) L 01/08/19 05:51 Chloride 114 mmol/L (98-107) H 01/08/19 05:51 Carbon Dioxide 17 mmol/L (22-30) L 01/08/19 05:51 Anion Gap 6 mmol/L 01/08/19 05:51 BUN 18 mg/dL (9-20) 01/08/19 05:51 Creatinine 0.78 mg/dL (0.66-1.25) 01/08/19 05:51 Est GFR (CKD-EPI)AfAm >90 (>60 ml/min/1.73 sqM) 01/08/19 05:51 Est GFR (CKD-EPI)NonAf >90 (>60 ml/min/1.73 sqM) 01/08/19 05:51 Glucose 78 mg/dL (74-99) 01/08/19 05:51 POC Glucose (mg/dL) 402 mg/dL (75-99) H 01/08/19 20:00 POC Glu [employer] ID Carlton Lenz 01/08/19 20:[address] Glu mg/dL 269 01/06/19 07:14 Hemoglobin A1c 11.0 % (4.0-6.0) H 01/06/19 07:14 Plasma Lactic Acid [place] 1.8 mmol/L (0.7-2.0) 01/06/19 01:32 Calcium 5.7 mg/dL (8.4-10.2) L* 01/08/19 05:51 TSH 4.950 mIU/L (0.465-4.680) H 01/05/19 19:16 Urine Color Yellow 01/05/19 19:16 Urine Appearance Clear (Clear) 01/05/19 19:16 Urine pH 5.0 (5.0-8.0) 01/05/19 19:16 Ur Specific [place] 1.021 (1.001-1.035) 01/05/19 19:16 Urine Protein 1+ (Negative) H 01/05/19 19:16 Urine Glucose (UA) 4+ (Negative) H 01/05/19 19:16 Urine Ketones Negative (Negative) 01/05/19 19:16 Urine Blood Trace (Negative) H 01/05/19 19:16 Urine Nitrite Negative (Negative) 01/05/19 19:16 Urine Bilirubin Negative (Negative) 01/05/19 19:16 Urine Urobilinogen <2.0 mg/dL (<2.0) 01/05/19 19:16 Ur Leukocyte Esterase Negative (Negative) 01/05/19 19:16 Urine RBC 1 /hpf (0-5) 01/05/19 19:16 Urine WBC 1 /hpf (0-5) 01/05/19 19:16 Hyaline Casts 23 /lpf (0-2) H 01/05/19 19:16 Urine Mucus Rare /hpf (None) H 01/05/19 19:16 Vancomycin Trough 14.3 ug/mL 01/07/19 10:28 Urine Opiates Screen Not Detected (NotDetected) 01/05/19 17:45 Ur Oxycodone Screen Not Detected (NotDetected) 01/05/19 17:45 Urine Methadone Screen Not Detected (NotDetected) 01/05/19 17:45 Ur Propoxyphene Screen Not Detected (NotDetected) 01/05/19 17:45 Ur Barbiturates Screen Not Detected (NotDetected) 01/05/19 17:45 U Tricyclic Antidepress Not Detected (NotDetected) 01/05/19 17:45 Ur Phencyclidine Scrn Not Detected (NotDetected) 01/05/19 17:45 Ur Amphetamines Screen Not Detected (NotDetected) 01/05/19 17:45 U Methamphetamines Scrn Not Detected (NotDetected) 01/05/19 17:45 U Benzodiazepines Scrn Not Detected (NotDetected) 01/05/19 17:45 Urine Cocaine Screen Not Detected (NotDetected) 01/05/19 17:45 U Marijuana (THC) Screen Detected (NotDetected) H 01/05/19 17:45 Blood Type A Positive 01/08/19 07:29 Blood Type Confirm A Positive 01/08/19 05:51 Blood Type Recheck CABO Indicated 01/08/19 07:29 Antibody Screen NEGATIVE 01/08/19 07:29 Crossmatch See Detail 01/08/19 07:29 Spec Expiration Date 01/11/2019 - 232801/08/19 07:29 Microbiology 01/05/19 20:01 Blood Blood Culture - Preliminary No Growth after 48 hours Assessment and Plan (1) Laceration of left wrist Current Visit: Yes Status: Acute Code(s): S61.512A - LACERATION WITHOUT FOREIGN BODY OF LEFT WRIST, INIT ENCNTR SNOMED Code(s): 542246767 (2) 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 Does have a dry gangrenous changes left great toe. He has been seen by vascular surgery with plans for amputation in the near future. Antibiotic therapy for same with Zosyn which is an appropriate choice. He will be discharged this can be transitioned to oral Augmentin the timeframe before the planned amputation to the dry gangrenous changes to the left foot. It is related that he had vascular workup in the past. He needs improved control of blood glucose if there is to be adequate healing of the left arm injury and amputation site to the left foot at the time of that surgery. Multivitamin with zinc should be added to help his nutritional status. 01/08/2019 the patient has improvement of his status no status post amputation. With this he will not require long-term IV antibiotic therapy. Local wound care and antibiotics will be decided as the site improves. Current Visit: No Status: Acute Code(s): E08.621 - DIABETES MELLITUS DUE TO UNDERLYING CONDITION W FOOT ULCER; L97.524 - NON-PRS CHRONIC ULCER OTH PRT LEFT FOOT W NECROSIS OF BONE SNOMED Code(s): 970841153
[2019-01-09] MEDS: PIPERACILLIN-TAZOBACTAM 3.375 GM in SODIUM CHLORIDE 0.9% 100 ML IVPB SCH ×3 (00:58→21:56)
[2019-01-09] MEDS: HEPARIN SODIUM,PORCINE 5,000 UNIT/ML 1 ML VIAL SQ SCH ×4 (00:58→23:53)
[2019-01-09] MEDS: VANCOMYCIN 1,750 MG in SODIUM CHLORIDE 0.9% 500 ML 500 ML IVPB SCH ×2 (03:20→16:23)
[2019-01-09] MEDS: LACTATED RINGERS 1,000 ML IV SCH (04:02)
[2019-01-09] MEDS: SODIUM CHLORIDE 0.9% 1,000 ML IV SCH ×2 (04:02→15:46)
[2019-01-09 07:09] LABS: Glucose,Whole Blood 293 mg/dL (75-99)
[2019-01-09] MEDS: LINAGLIPTIN 5 MG TABLET PO SCH (07:47)
[2019-01-09] MEDS: INSULIN ASPART (NovoLOG) 100 UNIT/ML VIAL SQ SCH ×5 (07:47→21:54)
[2019-01-09] MEDS: SERTRALINE 50 MG TAB PO SCH (07:47)
[2019-01-09] MEDS: FAMOTIDINE 20 MG TAB PO SCH ×2 (07:47→21:54)
[2019-01-09 07:50] LABS: HCT 25.5 % (39.0-53.0); Hypochromasia Slight; MCH 30.3 pg (25.0-35.0); MCHC 33.3 g/dL (31.0-37.0); MCV 91.1 fL (80.0-100.0); Mean Platelet Volume 7.9; Platelet Count 336 k/uL (150-450); Poikilocytosis Slight; RBC 2.79 m/uL (4.30-5.90); RDW 15.4 % (11.5-15.5); WBC 20.8 k/uL (3.8-10.6)
[2019-01-09 07:53] LABS: HGB 8.5 gm/dL (13.0-17.5)
[2019-01-09 08:16] LABS: Calcium 8.1 mg/dL (8.4-10.2); Potassium 4.8 mmol/L (3.5-5.1)
--- NOTE | 2019-01-09 11:19 | P.PN ---
Subjective Progress Note Date: 01/09/19 Principal diagnosis: Status post laceration repair left wrist Patient evaluated today at bedside, is resting comfortably. He denies any acute pain involving the left wrist. He denies any paresthesias involving the fingers or hand. Objective - Vital Signs Vital signs: Vital Signs Temp 97.5 F L 01/09/19 07:00 Pulse 101 H 01/09/19 07:00 Resp 16 01/09/19 07:00 BP 138/82 01/09/19 07:00 Pulse Ox 98 01/09/19 07:00 Intake & Output 01/08/19 01/09/19 01/09/19 18:59 06:59 18:59 Intake Total 610 Output Total 5 Balance 605 Intake: IV 300 Blood Product 310 Rc As-1 Unit 310 [id number] Output: Estimated Blood Loss 5 Other: # Voids 3 1 # Bowel Movements 1 - Exam Left upper extremity: Postoperative bandage was removed today. Incision is clean, dry and intact, stitches in good position. No significant soft tissue swelling throughout the hand or fingers. Patient is able to wiggle the fingers and make a fist with no difficulty. Sensory exam to light touch is intact, radial and ulnar pulses are 2+ - Labs CBC & Chem 7: 01/09/19 07:13 01/09/19 07:13 Labs: Abnormal Lab Results - Last 24 Hours (Table) 01/08/19 01/08/19 01/08/19 Range/Units 07:29 11:57 16:43 WBC (3.8-10.6) k/uL RBC (4.30-5.90) m/uL Hgb (13.0-17.5) gm/dL Hct (39.0-53.0) % Sodium (137-145) mmol/L BUN (9-20) mg/dL Glucose (74-99) mg/dL POC Glucose (mg/dL) 315 H 315 H (75-99) mg/dL Calcium (8.4-10.2) mg/dL Crossmatch See Detail 01/08/19 01/09/19 01/09/19 Range/Units 20:00 06:56 07:13 WBC (3.8-10.6) k/uL RBC (4.30-5.90) m/uL Hgb (13.0-17.5) gm/dL Hct (39.0-53.0) % Sodium 134 L (137-145) mmol/L BUN 28 H (9-20) mg/dL Glucose 269 H (74-99) mg/dL POC Glucose (mg/dL) 402 H 293 H (75-99) mg/dL Calcium 8.1 L (8.4-10.2) mg/dL Crossmatch 01/09/19 Range/Units 07:13 WBC 20.8 H (3.8-10.6) k/uL RBC 2.79 L (4.30-5.90) m/uL Hgb 8.5 L D (13.0-17.5) gm/dL Hct 25.5 L (39.0-53.0) % Sodium (137-145) mmol/L BUN (9-20) mg/dL Glucose (74-99) mg/dL POC Glucose (mg/dL) (75-99) mg/dL Calcium (8.4-10.2) mg/dL Crossmatch Microbiology - Last 24 Hours (Table) 01/05/19 20:01 Blood Culture - Preliminary Blood No Growth after 72 hours Assessment and Plan Plan: Assessment: Postop day #2 status post laceration repair left wrist Plan: Postoperative dressing was changed, new bandage applied Avoid strenuous activity with left hand and wrist at this time Recommend dressing changes every 2 days Plan for follow-up in 2 weeks for removal of stitches Time with Patient: Less than 30
[2019-01-09 11:37] LABS: Glucose,Whole Blood 329 mg/dL (75-99)
[2019-01-09] MEDS: traMADol 50 MG TAB PO PRN ×2 (13:36→23:53)
--- NOTE | 2019-01-09 15:20 | P.DS ---
Providers Date of admission: 01/05/19 19:55 Attending physician: Mehrdad Gan Consults: 01/05/19 19:54 Consult Physician Routine Consulting Provider: Te Mustafa Consult Reason/Comments: Toe infection Do you want consulting provider notified?: Yes 01/05/19 19:55 Consult Physician Urgent Consulting Provider: Josh Aiken Consult Reason/Comments: depression, suicidal Do you want consulting provider notified?: Yes Consult Physician Urgent Consulting Provider: Truman Suresh Consult Reason/Comments: toe infection, wrist laceration Do you want consulting provider notified?: Yes 01/06/19 10:40 Consult Physician Urgent Consulting Provider: Sandoval Irby Consult Reason/Comments: Left great toe infection Do you want consulting provider notified?: Yes Primary care physician: [facility] Hospital Course: Patient is admitted after suicide attempt with the knife and laceration to the left forearm which need delayed closure an orthopedic surgery will do that tomorrow. Patient also has severe peripheral vascular disease with the possible dry gangrene because of leukocytosis and patient was started on antibiotics and infectious disease will evaluate the patient. White blood cell count has come down serum random creatinine has come down significantly along with blood sugars although they're not the controlled I'm increasing pre-meal as well as long- acting insulin. 01/07/2019 Patient's laceration was sutured and repaired, patient will undergo amputation of the left great toe patient remains on vancomycin and Zosyn. Patient's serum sodium improved to 1:30 4C serum creatinine improved to 1.09. Blood sugars are well controlled although his insulin long-acting need to be cut down to 30 units as he will be nothing by mouth for amputation procedure tomorrow leukocytosis improved. Psychiatry evaluated the patient 01/08/2019 Patient underwent amputation of the left great toe. Clinically doing well. Patient's hemoglobin is 6.8 and transfusion at 1 unit of PRBC. Patient probably can be discharged tomorrow or day after to psychiatric floor depending on recommendations from vascular surgery potassium will be replaced. 01/09/2019 Patient is clinically doing well can be discharged to psychiatric floor his blood sugars are not well controlled I'm up titrated during insulin as his kidney function recently recovered, patient will not be started on any metformin at this time. Patient was switched to Augmentin. PHYSICAL EXAMINATION: GENERAL: The patient is alert and oriented x3, not in any acute distress. Well developed, well nourished. HEENT: Pupils are round and equally reacting to light. EOMI. No scleral icterus. No conjunctival pallor. Normocephalic, atraumatic. No pharyngeal erythema. No thyromegaly. CARDIOVASCULAR: S1 and S2 present. No murmurs, rubs, or gallops. PULMONARY: Chest is clear to auscultation, no wheezing or crackles. ABDOMEN: Soft, nontender, nondistended, normoactive bowel sounds. No palpable organomegaly. MUSCULOSKELETAL: No joint swelling or deformity. EXTREMITIES: No cyanosis, clubbing, or pedal edema. Amputation of the left great toe and the laceration in the left wrist was repaired NEUROLOGICAL: Gross neurological examination did not reveal any focal deficits. SKIN: No rashes. Assessment and Plan Plan: -Peripheral vascular disease with gangrene of the left great toe mostly appears to be dry gangrene clinically since he has elevated white blood cell count which improved patient was started on vancomycin and Zosyn cultures were negative so far, patient is status post amputation of the left great toe yesterday and patient will be discharged on Augmentin. Patient's dressing will be changed on Friday by Dr. Irby -Laceration of the left wrist and suicide attempt: Status post repair -Acute blood loss anemia from surgery: Received 1 unit of blood transfusion -Depression and suicide attempt: Psychiatric evaluated the patient, patient will be transferred to psychiatric floor -Type 2 diabetes mellitus uncontrolled blood sugars due to noncompliance of medications , uncontrolled uptitrating insulin as mentioned above and patient will followed as psychiatric floor -Acute renal failure prerenal azotemia improved, patient at increased to drink water -Hyponatremia: Hypovolemic hyponatremia along with pseudohyponatremia improved now with IV fluids. 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 -Marijuana use and smoking Plan - Discharge Summary Discharge Rx Participant: No New Discharge Prescriptions: New Insulin Detemir (Levemir) [Levemir] 45 unit SQ HS syr INSULIN ASPART (NovoLOG) [NovoLOG (formulary)] 14 unit SQ AC-SUPPER vial Amoxicillin/Potassium Clav [Augmentin 875-125 Tablet] 1 tab PO Q12HR #20 tab traMADol HCL [Ultram] 50 mg PO Q6HR PRN 3 Days #12 tab PRN Reason: Pain Metoprolol Tartrate [Lopressor] 50 mg PO BID #10 tab Continue Atorvastatin [Lipitor] 80 mg PO HS Alogliptin Benzoate [Alogliptin] 25 mg PO DAILY Sertraline [Zoloft] 50 mg PO DAILY Discontinued Atenolol 25 mg PO QAM metFORMIN HCL 1,000 mg PO BID ALPRAZolam [Xanax] 1 mg PO DAILY Insulin Glargine [Lantus] 35 unit SQ HS Insulin Aspart [NovoLOG Flexpen] 3 units SQ W/SUPPER Discharge Medication List Atorvastatin [Lipitor] 80 mg PO HS 08/15/16 [History] Alogliptin Benzoate [Alogliptin] 25 mg PO DAILY 01/05/19 [History] Sertraline [Zoloft] 50 mg PO DAILY 01/05/19 [History] Amoxicillin/Potassium Clav [Augmentin 875-125 Tablet] 1 tab PO Q12HR #20 tab 01/09/19 [Rx] INSULIN ASPART (NovoLOG) [NovoLOG (formulary)] 14 unit SQ AC-SUPPER vial 01/09/19 [Rx] Insulin Detemir (Levemir) [Levemir] 45 unit SQ HS syr 01/09/19 [Rx] Metoprolol Tartrate [Lopressor] 50 mg PO BID #10 tab 01/09/19 [Rx] traMADol HCL [Ultram] 50 mg PO Q6HR PRN 3 Days #12 tab 01/09/19 [Rx] Follow up Appointment(s)/Referral(s): Mehrdad Ravi PAC [PHYSICIAN CORPORATE STAFF ACCOUNTANT] - 2 Weeks [facility]Clinic [Primary Care Provider] - 1-2 days Activity/Diet/Wound Care/Special Instructions: Orthopedic discharge instructions: 1. Do not remove stitches 2. Keep incision covered and dry 3. Change dressing every 2 days 4. Avoid strenuous activity with regards to the left hand 5. Follow-up in 2 weeks for stitch removal
[2019-01-09 16:53] LABS: Glucose,Whole Blood 373 mg/dL (75-99)
[2019-01-09 20:11] LABS: Glucose,Whole Blood 280 mg/dL (75-99)
[2019-01-09] MEDS: METOPROLOL TARTRATE 50 MG TAB PO SCH (21:54)
[2019-01-09] MEDS: ATORVASTATIN 80 MG TAB PO SCH (21:54)
[2019-01-09] MEDS: INSULIN DETEMIR (LEVEMIR) 100 UNIT/ML SYR SQ SCH (21:55)
[2019-01-10] MEDS: PIPERACILLIN-TAZOBACTAM 3.375 GM in SODIUM CHLORIDE 0.9% 100 ML IVPB SCH ×4 (01:53→21:04)
[2019-01-10] MEDS: VANCOMYCIN 1,750 MG in SODIUM CHLORIDE 0.9% 500 ML 500 ML IVPB SCH ×2 (03:09→16:48)
[2019-01-10] MEDS ORDERED: ONDANSETRON 4 MG/2 ML VIAL IVP PRN (03:26)
[2019-01-10 07:05] LABS: Glucose,Whole Blood 103 mg/dL (75-99)
[2019-01-10 07:55] LABS: Calcium 8.1 mg/dL (8.4-10.2); Potassium 4.7 mmol/L (3.5-5.1)
[2019-01-10] MEDS: LACTATED RINGERS 1,000 ML IV SCH (08:05)
[2019-01-10] MEDS: SODIUM CHLORIDE 0.9% 1,000 ML IV SCH ×2 (08:05→11:19)
[2019-01-10] MEDS: FAMOTIDINE 20 MG TAB PO SCH ×2 (09:30→21:04)
[2019-01-10] MEDS: METOPROLOL TARTRATE 50 MG TAB PO SCH ×2 (09:30→21:04)
[2019-01-10] MEDS: LINAGLIPTIN 5 MG TABLET PO SCH (09:30)
[2019-01-10] MEDS: SERTRALINE 50 MG TAB PO SCH (09:30)
[2019-01-10] MEDS: HEPARIN SODIUM,PORCINE 5,000 UNIT/ML 1 ML VIAL SQ SCH ×2 (09:31→16:48)
[2019-01-10] MEDS: INSULIN ASPART (NovoLOG) 100 UNIT/ML VIAL SQ SCH ×5 (09:32→21:05)
[2019-01-10 12:01] LABS: Glucose,Whole Blood 87 mg/dL (75-99)
--- NOTE | 2019-01-10 12:28 | P.PN ---
Subjective Patient is admitted after suicide attempt with the knife and laceration to the left forearm which need delayed closure an orthopedic surgery will do that tomorrow. Patient also has severe peripheral vascular disease with the possible dry gangrene because of leukocytosis and patient was started on antibiotics and infectious disease will evaluate the patient. White blood cell count has come down serum random creatinine has come down significantly along with blood sugars although they're not the controlled I'm increasing pre-meal as well as long- acting insulin. 01/07/2019 Patient's laceration was sutured and repaired, patient will undergo amputation of the left great toe patient remains on vancomycin and Zosyn. Patient's serum sodium improved to 1:30 4C serum creatinine improved to 1.09. Blood sugars are well controlled although his insulin long-acting need to be cut down to 30 units as he will be nothing by mouth for amputation procedure tomorrow leukocytosis improved. Psychiatry evaluated the patient 01/08/2019 Patient underwent amputation of the left great toe. Clinically doing well. Patient's hemoglobin is 6.8 and transfusion at 1 unit of PRBC. Patient probably can be discharged tomorrow or day after to psychiatric floor depending on recommendations from vascular surgery potassium will be replaced 01/02/2019 Patient the renal function worse and patient will be increased to drink lots of water, will resume IV fluids at 100 mL per hour and recheck the creatinine tomorrow. Constitutional: Denied any fatigue denied any fever. Cardio vascular: denied any chest pain, palpitations Gastrointestinal denied any nausea vomiting Pulmonary: Denied any shortness of breath cough Neurologic denied any new focal deficits All inpatient medications were reviewed and appropriate changes in these medications as dictated in the interval history and assessment and plan. Objective - Vital Signs Vital signs: Vital Signs Temp 97.8 F 01/10/19 07:00 Pulse 76 01/10/19 07:00 Resp 16 01/10/19 07:00 BP 100/70 01/10/19 07:00 Pulse Ox 95 01/10/19 07:00 Intake & Output 01/09/19 01/10/19 01/10/19 18:59 06:59 18:59 Intake Total 1290 Balance 1290 Intake: Intake, IV Titration 600 Amount Piperacillin-Tazobactam 3 100 .375 gm In Sodium Chloride 0.9% 100 ml @ 25 mls/hr IVPB Q8H [facility] Rx#: [id number] Vancomycin 1,750 mg In 500 Sodium Chloride 0.9% 500 ml 500 ml @ 167 mls/hr IVPB Q12H [facility] Rx#: [id number] Oral 690 Other: # Voids 4 3 # Bowel Movements 0 - Exam PHYSICAL EXAMINATION: GENERAL: The patient is alert and oriented x3, not in any acute distress. Well developed, well nourished. HEENT: Pupils are round and equally reacting to light. EOMI. No scleral icterus. No conjunctival pallor. Normocephalic, atraumatic. No pharyngeal erythema. No thyromegaly. CARDIOVASCULAR: S1 and S2 present. No murmurs, rubs, or gallops. PULMONARY: Chest is clear to auscultation, no wheezing or crackles. ABDOMEN: Soft, nontender, nondistended, normoactive bowel sounds. No palpable organomegaly. MUSCULOSKELETAL: No joint swelling or deformity. EXTREMITIES: No cyanosis, clubbing, or pedal edema. Amputation of the left great toe and the laceration in the left wrist was repaired NEUROLOGICAL: Gross neurological examination did not reveal any focal deficits. SKIN: No rashes. - Labs CBC & Chem 7: 01/09/19 07:13 01/10/19 07:20 Labs: Abnormal Lab Results - Last 24 Hours (Table) 01/09/19 01/09/19 01/10/19 Range/Units 16:42 20:00 06:51 Sodium (137-145) mmol/L BUN (9-20) mg/dL Creatinine (0.66-1.25) mg/dL Glucose (74-99) mg/dL POC Glucose (mg/dL) 373 H 280 H 103 H (75-99) mg/dL Calcium (8.4-10.2) mg/dL 01/10/19 Range/Units 07:20 Sodium 136 L (137-145) mmol/L BUN 34 H (9-20) mg/dL Creatinine 1.31 H (0.66-1.25) mg/dL Glucose 100 H (74-99) mg/dL POC Glucose (mg/dL) (75-99) mg/dL Calcium 8.1 L (8.4-10.2) mg/dL Microbiology - Last 24 Hours (Table) 01/05/19 20:01 Blood Culture - Preliminary Blood No Growth after 96 hours Assessment and Plan Plan: -Peripheral vascular disease with gangrene of the left great toe mostly appears to be dry gangrene clinically since he has elevated white blood cell count which improved patient was started on vancomycin and Zosyn cultures were negative so far, patient is status post amputation of the left great toe yesterday and patient will be discharged on Augmentin. Patient's dressing will be changed on Friday by Dr. Irby -Laceration of the left wrist and suicide attempt: Status post repair -Acute blood loss anemia from surgery: Received 1 unit of blood transfusion -Depression and suicide attempt: Psychiatric evaluated the patient, patient will be transferred to psychiatric floor most probably tomorrow -Type 2 diabetes mellitus uncontrolled blood sugars due to noncompliance of medi cations , uncontrolled uptitrating insulin as mentioned above and patient will followed as psychiatric floor -Acute renal failure prerenal azotemia improved, patient was started back on IV fluids and repeat basic metabolic profile tomorrow -Hyponatremia: Hypovolemic hyponatremia along with pseudohyponatremia improved now with IV fluids. 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
[2019-01-10] MEDS ORDERED: VANCOMYCIN TROUGH DUE 1 EACH MISC MISCELLANE ONE (14:00)
[2019-01-10 17:07] LABS: Glucose,Whole Blood 121 mg/dL (75-99)
[2019-01-10 20:22] LABS: Glucose,Whole Blood 81 mg/dL (75-99)
[2019-01-10 20:35] LABS: Glucose,Whole Blood 92 mg/dL (75-99)
[2019-01-10] MEDS: ATORVASTATIN 80 MG TAB PO SCH (21:04)
[2019-01-10] MEDS: INSULIN DETEMIR (LEVEMIR) 100 UNIT/ML SYR SQ SCH (21:05)
[2019-01-11] MEDS: HEPARIN SODIUM,PORCINE 5,000 UNIT/ML 1 ML VIAL SQ SCH ×4 (00:20→23:50)
[2019-01-11] MEDS: PIPERACILLIN-TAZOBACTAM 3.375 GM in SODIUM CHLORIDE 0.9% 100 ML IVPB SCH ×3 (05:42→21:37)
[2019-01-11 07:31] LABS: Glucose,Whole Blood 164 mg/dL (75-99)
[2019-01-11] MEDS ORDERED: VANCOMYCIN 1,750 MG in SODIUM CHLORIDE 0.9% 500 ML 500 ML IVPB SCH (08:00)
[2019-01-11] MEDS: SODIUM CHLORIDE 0.9% 1,000 ML IV SCH ×3 (08:19→18:03)
[2019-01-11] MEDS: LACTATED RINGERS 1,000 ML IV SCH (08:20)
[2019-01-11] MEDS: INSULIN ASPART (NovoLOG) 100 UNIT/ML VIAL SQ SCH ×5 (08:33→21:37)
[2019-01-11] MEDS: FAMOTIDINE 20 MG TAB PO SCH ×2 (08:34→21:36)
[2019-01-11] MEDS: LINAGLIPTIN 5 MG TABLET PO SCH (08:34)
[2019-01-11] MEDS: METOPROLOL TARTRATE 50 MG TAB PO SCH ×2 (08:34→21:36)
[2019-01-11] MEDS: SERTRALINE 50 MG TAB PO SCH (08:35)
[2019-01-11 08:39] LABS: Calcium 7.6 mg/dL (8.4-10.2)
--- NOTE | 2019-01-11 11:56 | PN ---
PROGRESS NOTE This is a 58-year-old gentleman who had a big toe amputation done. Today we have changed the dressing. Stump site is healing. No discharge or redness noted. Patient on IV antibiotic which will continue Patient meant to have nonweightbearing on the right foot. Patient may go home and I will follow him in the office in one week. MMODL / IJN: [id number] /
[2019-01-11 12:04] LABS: Glucose,Whole Blood 254 mg/dL (75-99)
--- NOTE | 2019-01-11 15:28 | P.PN ---
Subjective Patient is admitted after suicide attempt with the knife and laceration to the left forearm which need delayed closure an orthopedic surgery will do that tomorrow. Patient also has severe peripheral vascular disease with the possible dry gangrene because of leukocytosis and patient was started on antibiotics and infectious disease will evaluate the patient. White blood cell count has come down serum random creatinine has come down significantly along with blood sugars although they're not the controlled I'm increasing pre-meal as well as long- acting insulin. 01/07/2019 Patient's laceration was sutured and repaired, patient will undergo amputation of the left great toe patient remains on vancomycin and Zosyn. Patient's serum sodium improved to 1:30 4C serum creatinine improved to 1.09. Blood sugars are well controlled although his insulin long-acting need to be cut down to 30 units as he will be nothing by mouth for amputation procedure tomorrow leukocytosis improved. Psychiatry evaluated the patient 01/08/2019 Patient underwent amputation of the left great toe. Clinically doing well. Patient's hemoglobin is 6.8 and transfusion at 1 unit of PRBC. Patient probably can be discharged tomorrow or day after to psychiatric floor depending on recommendations from vascular surgery potassium will be replaced 01/10/2019 Patient the renal function worse and patient will be increased to drink lots of water, will resume IV fluids at 100 mL per hour and recheck the creatinine tomorrow. 01/11/2019 Patient is a bit hyponatremic creatinine continued to get worse patient remains hyponatremic patient is on IV fluids in spite of which his creatinine continued to worse for last 3 days. We will obtain 9 urine 9 random sodium urine random creatinine are discuss with infectious disease regarding changing vancomycin. Will also obtain urine eosinophils , urine analysis and renal ultrasound. Constitutional: Denied any fatigue denied any fever. Cardio vascular: denied any chest pain, palpitations Gastrointestinal denied any nausea vomiting Pulmonary: Denied any shortness of breath cough Neurologic denied any new focal deficits All inpatient medications were reviewed and appropriate changes in these medications as dictated in the interval history and assessment and plan. Objective - Vital Signs Vital signs: Vital Signs Temp 98 F 01/11/19 14:47 Pulse 64 01/11/19 14:47 Resp 12 01/11/19 14:47 BP 103/69 01/11/19 14:47 Pulse Ox 98 01/11/19 14:47 Intake & Output 01/10/19 01/11/19 01/11/19 18:59 06:59 18:59 Intake Total 100 2280 900 Balance 100 2280 900 Intake: Intake, IV Titration 100 1200 900 Amount Piperacillin-Tazobactam 3 100 200 100 .375 gm In Sodium Chloride 0.9% 100 ml @ 25 mls/hr IVPB Q8H [facility] Rx#: [id number] Sodium Chloride 0.9% 1, 800 000 ml @ 100 mls/hr IV . Q10H [facility] Rx#:[id number] Vancomycin 1,750 mg In 1000 Sodium Chloride 0.9% 500 ml 500 ml @ 167 mls/hr IVPB Q16H [facility] Rx#: [id number] Oral 1080 Other: # Voids 4 2 - Exam PHYSICAL EXAMINATION: GENERAL: The patient is alert and oriented x3, not in any acute distress. Well developed, well nourished. HEENT: Pupils are round and equally reacting to light. EOMI. No scleral icterus. No conjunctival pallor. Normocephalic, atraumatic. No pharyngeal erythema. No thyromegaly. CARDIOVASCULAR: S1 and S2 present. No murmurs, rubs, or gallops. PULMONARY: Chest is clear to auscultation, no wheezing or crackles. ABDOMEN: Soft, nontender, nondistended, normoactive bowel sounds. No palpable organomegaly. MUSCULOSKELETAL: No joint swelling or deformity. EXTREMITIES: No cyanosis, clubbing, or pedal edema. Amputation of the left great toe and the laceration in the left wrist was repaired NEUROLOGICAL: Gross neurological examination did not reveal any focal deficits. SKIN: No rashes. - Labs CBC & Chem 7: 01/09/19 07:13 01/11/19 07:40 Labs: Abnormal Lab Results - Last 24 Hours (Table) 01/10/19 01/11/19 01/11/19 Range/Units 16:55 07:20 07:40 Sodium 131 L (137-145) mmol/L Carbon Dioxide 21 L (22-30) mmol/L BUN 49 H (9-20) mg/dL Creatinine 1.49 H (0.66-1.25) mg/dL Glucose 180 H (74-99) mg/dL POC Glucose (mg/dL) 121 H 164 H (75-99) mg/dL Calcium 7.6 L (8.4-10.2) mg/dL 01/11/19 Range/Units 11:52 Sodium (137-145) mmol/L Carbon Dioxide (22-30) mmol/L BUN (9-20) mg/dL Creatinine (0.66-1.25) mg/dL Glucose (74-99) mg/dL POC Glucose (mg/dL) 254 H (75-99) mg/dL Calcium (8.4-10.2) mg/dL Microbiology - Last 24 Hours (Table) 01/05/19 20:01 Blood Culture - Preliminary Blood No Growth after 120 hours Assessment and Plan Plan: -Peripheral vascular disease with gangrene of the left great toe mostly appears to be dry gangrene clinically since he has elevated white blood cell count which improved patient was started on vancomycin and Zosyn cultures were negative so far, patient is status post amputation of the left great toe. -acute renal failure: Further workup as mentioned above, nephrology consultation as mentioned above. -Laceration of the left wrist and suicide attempt: Status post repair -Acute blood loss anemia from surgery: Received 1 unit of blood transfusion -Depression and suicide attempt: Psychiatric evaluated the patient, patient will be transferred to psychiatric floor most probably tomorrow -Type 2 diabetes mellitus uncontrolled blood sugars are fairly well controlled now -Hyponatremia: Hypovolemic hyponatremia improved initially now started to get worse. 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
--- NOTE | 2019-01-11 16:46 | US ---
EXAMINATION TYPE: US kidneys/renal and bladder DATE OF EXAM: 01/11/2019 COMPARISON: US 2017 CLINICAL HISTORY: 58-year-old male AKIL. TECHNIQUE: Multiple sonographic images of the kidneys and bladder are obtained. FINDINGS: Hostess notes: Large body habitus. EXAM MEASUREMENTS: Right Kidney: 12.5 x 6.4 x 5.8 cm Left Kidney: 11.5 x 5.6 x 5.9 cm Post Void Residual Volume: Not performed Right Kidney: mild right-sided pelviectasis, unchanged from 01/08/2017 Left Kidney: No hydronephrosis. Bladder: Underdistention limited evaluation. Bilateral Jets seen: No IMPRESSION: Similar mild pelviectasis on the right, possibly representing an extrarenal pelvis. No chrissie hydronep hrosis.
[2019-01-11 16:53] LABS: Glucose,Whole Blood 276 mg/dL (75-99)
[2019-01-11 20:57] LABS: Glucose,Whole Blood 259 mg/dL (75-99)
[2019-01-11] MEDS: ATORVASTATIN 80 MG TAB PO SCH (21:36)
[2019-01-11] MEDS: INSULIN DETEMIR (LEVEMIR) 100 UNIT/ML SYR SQ SCH (21:38)
--- NOTE | 2019-01-11 21:46 | P.PN ---
Subjective Progress Note Date: 01/11/19 58-year-old male with multiple medical troubles including diabetes peripheral vascular disease and is a relates to difficulties with mental illness in had a suicide attempt with injury to his left arm. The 18 cm laceration is no been repaired by orthopedics consult was requested regarding antibiotic therapy especially regarding the gangrenous left foot great toe. Patient is also being seen by vascular surgery. Patient was at this time is relatively well. Pain at the surgical site he is without fevers chills rigors or sweats. He has uncontrolled diabetes mellitus with a hemoglobin A1c of 11 01/08/2019 patient is feeling somewhat better. The to amputation as occurred. He is denying any other new acute complaints 01/11/2019 patient is feeling somewhat better. He does relate to ongoing difficulties with his depression and relates that he is in need of further intervention. Does continue to have a sitter. He voices no other suicidal ideation but regrets that his suicide attempt was not successful. He is pleasant in thankful that he is still here however. Complaints ofany discomfort at the self-inflicted injury to the left wrist and no pain at the left toe amputation site. Objective - Vital Signs Vital signs: Vital Signs Temp 98.1 F 01/11/19 19:35 Pulse 64 01/11/19 19:50 Resp 14 01/11/19 19:50 BP 127/82 01/11/19 19:35 Pulse Ox 96 01/11/19 19:35 Intake & Output 01/11/19 01/11/19 01/12/19 06:59 18:59 06:59 Intake Total 2280 900 Output Total 600 Balance 2280 300 Intake: Intake, IV Titration 1200 900 Amount Piperacillin-Tazobactam 3 200 100 .375 gm In Sodium Chloride 0.9% 100 ml @ 25 mls/hr IVPB Q8H [facility] Rx#: [id number] Sodium Chloride 0.9% 1, 800 000 ml @ 100 mls/hr IV . Q10H [facility] Rx#:[id number] Vancomycin 1,750 mg In 1000 Sodium Chloride 0.9% 500 ml 500 ml @ 167 mls/hr IVPB Q16H [facility] Rx#: [id number] Oral 1080 Output: Emesis 600 Other: # Voids 4 2 - Exam Pleasant obese 58-year-old male, not in acute distress HEENT: Anicteric conjunctiva are pink and moist nasal mucosa grossly intact without significant lesions, there is no thrush. Neck: The neck is supple without significant lymphadenopathy or thyromegaly. Lungs: Good bilateral air entry without significant crackles or wheezing. There is no significant bronchial sounds. There is no egophony or dullness. Heart: Regular rate and rhythm with an audible S1-S2, no S3 no S4. There is no significant murmur click or rub, PMI was nondisplaced. Abdomen: Positive bowel sounds soft and nontender without palpable masses or organomegaly. There was no guarding or rebound. Extremities: The left upper extremity reveals evidence of the healing self- inflicted injury site. It is well approximated without drainage or erythema. D oes have evidence of a significant function of the hand. The fluctuation of amputation to the distal aspect of the left great toe. Site is well approximated with no purulent drainage there is no significant serous drainage today as there was postoperative Neuro: Awake alert oriented to person place and time. The patient is evidence of significant and dense peripheral neuropathy to the lower extremities - Labs CBC & Chem 7: 01/09/19 07:13 01/11/19 07:40 Labs: Abnormal Lab Results - Last 24 Hours (Table) 01/11/19 01/11/19 01/11/19 Range/Units 07:20 07:40 11:52 Sodium 131 L (137-145) mmol/L Carbon Dioxide 21 L (22-30) mmol/L BUN 49 H (9-20) mg/dL Creatinine 1.49 H (0.66-1.25) mg/dL Glucose 180 H (74-99) mg/dL POC Glucose (mg/dL) 164 H 254 H (75-99) mg/dL Calcium 7.6 L (8.4-10.2) mg/dL 01/11/19 01/11/19 Range/Units 16:41 20:56 Sodium (137-145) mmol/L Carbon Dioxide (22-30) mmol/L BUN (9-20) mg/dL Creatinine (0.66-1.25) mg/dL Glucose (74-99) mg/dL POC Glucose (mg/dL) 276 H 259 H (75-99) mg/dL Calcium (8.4-10.2) mg/dL Microbiology - Last 24 Hours (Table) 01/05/19 20:01 Blood Culture - Preliminary Blood No Growth after 120 hours Laboratory Results WBC 20.8 k/uL (3.8-10.6) H 01/09/19 07:13 RBC 2.79 m/uL (4.30-5.90) L 01/09/19 07:13 Hgb 8.5 gm/dL (13.0-17.5) L D 01/09/19 07:13 Hct 25.5 % (39.0-53.0) L 01/09/19 07:13 MCV 91.1 fL (80.0-100.0) 01/09/19 07:13 MCH 30.3 pg (25.0-35.0) 01/09/19 07:13 MCHC 33.3 g/dL (31.0-37.0) 01/09/19 07:13 RDW 15.4 % (11.5-15.5) 01/09/19 07:13 Plt Count 336 k/uL (150-450) 01/09/19 07:13 Neutrophils % 76 % 01/08/19 05:51 Lymphocytes % 14 % 01/08/19 05:51 Monocytes % 7 % 01/08/19 05:51 Eosinophils % 1 % 01/08/19 05:51 Basophils % 0 % 01/08/19 05:51 Neutrophils # 10.4 k/uL (1.3-7.7) H 01/08/19 05:51 Lymphocytes # 1.9 k/uL (1.0-4.8) 01/08/19 05:51 Monocytes # 0.9 k/uL (0-1.0) 01/08/19 05:51 Eosinophils # 0.1 k/uL (0-0.7) 01/08/19 05:51 Basophils # 0.0 k/uL (0-0.2) 01/08/19 05:51 Hypochromasia Slight 01/09/19 07:13 Poikilocytosis Slight 01/09/19 07:13 Sodium 131 mmol/L (137-145) L 01/11/19 07:40 Potassium 5.0 mmol/L (3.5-5.1) 01/11/19 07:40 Chloride 100 mmol/L (98-107) 01/11/19 07:40 Carbon Dioxide 21 mmol/L (22-30) L 01/11/19 07:40 Anion Gap 10 mmol/L 01/11/19 07:40 BUN 49 mg/dL (9-20) H 01/11/19 07:40 Creatinine 1.49 mg/dL (0.66-1.25) H 01/11/19 07:40 Est GFR (CKD-EPI)AfAm 60 (>60 ml/min/1.73 sqM) 01/11/19 07:40 Est GFR (CKD-EPI)NonAf 52 (>60 ml/min/1.73 sqM) 01/11/19 07:40 Glucose 180 mg/dL (74-99) H 01/11/19 07:40 POC Glucose (mg/dL) 259 mg/dL (75-99) H 01/11/19 20:56 POC Glu [employer] ID Carlton Lenz 01/11/19 20:[address] Glu mg/dL 269 01/06/19 07:14 Hemoglobin A1c 11.0 % (4.0-6.0) H 01/06/19 07:14 Plasma Lactic Acid [place] 1.8 mmol/L (0.7-2.0) 01/06/19 01:32 Calcium 7.6 mg/dL (8.4-10.2) L 01/11/19 07:40 TSH 4.950 mIU/L (0.465-4.680) H 01/05/19 19:16 Urine Color Yellow 01/05/19 19:16 Urine Appearance Clear (Clear) 01/05/19 19:16 Urine pH 5.0 (5.0-8.0) 01/05/19 19:16 Ur Specific [place] 1.021 (1.001-1.035) 01/05/19 19:16 Urine Protein 1+ (Negative) H 01/05/19 19:16 Urine Glucose (UA) 4+ (Negative) H 01/05/19 19:16 Urine Ketones Negative (Negative) 01/05/19 19:16 Urine Blood Trace (Negative) H 01/05/19 19:16 Urine Nitrite Negative (Negative) 01/05/19 19:16 Urine Bilirubin Negative (Negative) 01/05/19 19:16 Urine Urobilinogen <2.0 mg/dL (<2.0) 01/05/19 19:16 Ur Leukocyte Esterase Negative (Negative) 01/05/19 19:16 Urine RBC 1 /hpf (0-5) 01/05/19 19:16 Urine WBC 1 /hpf (0-5) 01/05/19 19:16 Hyaline Casts 23 /lpf (0-2) H 01/05/19 19:16 Urine Mucus Rare /hpf (None) H 01/05/19 19:16 Urine Eosinophils 2 % 01/11/19 13:46 Ur Random Creatinine 109.7 mg/dL 01/11/19 13:46 Vancomycin Trough 24.2 ug/mL 01/10/19 13:48 Urine Opiates Screen Not Detected (NotDetected) 01/05/19 17:45 Ur Oxycodone Screen Not Detected (NotDetected) 01/05/19 17:45 Urine Methadone Screen Not Detected (NotDetected) 01/05/19 17:45 Ur Propoxyphene Screen Not Detected (NotDetected) 01/05/19 17:45 Ur Barbiturates Screen Not Detected (NotDetected) 01/05/19 17:45 U Tricyclic Antidepress Not Detected (NotDetected) 01/05/19 17:45 Ur Phencyclidine Scrn Not Detected (NotDetected) 01/05/19 17:45 Ur Amphetamines Screen Not Detected (NotDetected) 01/05/19 17:45 U Methamphetamines Scrn Not Detected (NotDetected) 01/05/19 17:45 U Benzodiazepines Scrn Not Detected (NotDetected) 01/05/19 17:45 Urine Cocaine Screen Not Detected (NotDetected) 01/05/19 17:45 U Marijuana (THC) Screen Detected (NotDetected) H 01/05/19 17:45 Blood Type A Positive 01/08/19 07:29 Blood Type Confirm A Positive 01/08/19 05:51 Blood Type Recheck CABO Indicated 01/08/19 07:29 Antibody Screen NEGATIVE 01/08/19 07:29 Crossmatch See Detail 01/08/19 07:29 Spec Expiration Date 01/11/2019 - 01201/08/19 07:29 Microbiology 01/05/19 20:01 Blood Blood Culture - Preliminary No Growth after 120 hours Assessment and Plan (1) Laceration of left wrist Current Visit: Yes Status: Acute Code(s): S61.512A - LACERATION WITHOUT F OREIGN BODY OF LEFT WRIST, INIT ENCNTR SNOMED Code(s): 431950908 (2) 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 Does have a dry gangrenous changes left great toe. He has been seen by vascular surgery with plans for amputation in the near future. Antibiotic therapy for same with Zosyn which is an appropriate choice. He will be discharged this can be transitioned to oral Augmentin the timeframe before the planned amputation to the dry gangrenous changes to the left foot. It is related that he had vascular workup in the past. He needs improved control of blood glucose if there is to be adequate healing of the left arm injury and amputation site to the left foot at the time of that surgery. Multivitamin with zinc should be added to help his nutritional status. 01/08/2019 the patient has improvement of his status no status post amputation. With this he will not require long-term IV antibiotic therapy. Local wound care and antibiotics will be decided as the site improves. 01/11/2019 is evidence of some worsening of his acute renal failure. Possibly due to the current metabolic situation, possibly exacerbated by the combination of vancomycin and Zosyn. With a toe amputated May streamline antibiotic therapy to just Augmentin to complete the next week or so therapy until he has follow-up in the outpatient setting. Nonstick dressings are applied to both the wrist and toe wrapped and place. He's being followed by nephrology. He received fluid and hopefully with discontinuation of the combination intravenous antibiotic therapy he will have rapid improvement of his renal function did Current Visit: No Status: Acute Code(s): E08.621 - DIABETES MELLITUS DUE TO UNDERLYING CONDITION W FOOT ULCER; L97.524 - NON-PRS CHRONIC ULCER OTH PRT LEFT FOOT W NECROSIS OF BONE SNOMED Code(s): 516366581
[2019-01-12 06:32] LABS: Appearance,Urine Clear (Clear); Bilirubin,Urine Negative (Negative); Blood,Urine Large (Negative); Budding Yeast,Urine Rare /hpf; Color,Urine Yellow; Glucose,Urine (UA) 1+ (Negative); Ketones,Urine Negative (Negative); Leukocyte Esterase,Urine Negative (Negative); Mucus,Urine Rare /hpf; Nitrite,Urine Negative (Negative); Protein,Urine 2+ (Negative); RBC,Urine >182 /hpf (0-5); Specific Gravity,Urine 1.026 (1.001-1.035); Squamous Epithelial Cell,Urine <1 /hpf (0-4); Urobilinogen,Urine <2.0 mg/dL (<2.0)
[2019-01-12 07:18] LABS: Glucose,Whole Blood 241 mg/dL (75-99)
[2019-01-12 08:09] LABS: Anisocytosis Slight; HCT 28.6 % (39.0-53.0); HGB 8.9 gm/dL (13.0-17.5); Hypochromasia Slight; MCH 29.3 pg (25.0-35.0); MCHC 31.2 g/dL (31.0-37.0); MCV 93.8 fL (80.0-100.0); Mean Platelet Volume 7.9; Platelet Count 413 k/uL (150-450); Poikilocytosis Slight; RBC 3.05 m/uL (4.30-5.90); RDW 16.1 % (11.5-15.5); WBC 22.6 k/uL (3.8-10.6)
[2019-01-12] MEDS: SODIUM CHLORIDE 0.9% 1,000 ML IV SCH ×2 (08:15→14:49)
[2019-01-12] MEDS: LACTATED RINGERS 1,000 ML IV SCH (08:15)
[2019-01-12] MEDS: INSULIN ASPART (NovoLOG) 100 UNIT/ML VIAL SQ SCH ×5 (08:21→20:52)
[2019-01-12] MEDS: LINAGLIPTIN 5 MG TABLET PO SCH (08:22)
[2019-01-12] MEDS: HEPARIN SODIUM,PORCINE 5,000 UNIT/ML 1 ML VIAL SQ SCH ×2 (08:22→18:01)
[2019-01-12 08:30] LABS: Calcium 7.4 mg/dL (8.4-10.2); Potassium 4.9 mmol/L (3.5-5.1)
[2019-01-12] MEDS: FAMOTIDINE 20 MG TAB PO SCH ×2 (08:31→20:51)
[2019-01-12] MEDS: METOPROLOL TARTRATE 50 MG TAB PO SCH ×2 (08:31→20:51)
[2019-01-12] MEDS: SERTRALINE 50 MG TAB PO SCH (08:32)
--- NOTE | 2019-01-12 11:02 | P.NPCON ---
History of Present Illness - Reason for Consult acute renal failure - History of Present Illness Reason for observation: Acute kidney injury History of present illness: Patient is a 58-year-old male seen in consultation for acute kidney injury. Patient's creatinine was 2.1 on admission and did improve to 0.78 as of January 08. Over the last few days it's been gradually worsening and is 1.56 today. Patient presented to the hospital with suicidal ideation. He was noted to have dry gangrene on his left big toe for which he underwent amputation on January 08. He was receiving IV vancomycin and Zosyn which were both discontinued yesterday. Urine eosinophils are positive at 2%. He has long-standing history of diabetes mellitus. Urinalysis does reveal proteinuria but no significant white cells. He is currently receiving IV fluids. Denies hematuria or dysuria. He did have an episode of vomiting yesterday but none today. Hemodynamically he's been stable. Oral intake is fair. Currently not on any nephrotoxins. Vital signs are stable. General: The patient appeared well nourished and normally developed. HEENT: Head exam is unremarkable. Neck is without jugular venous distension. LUNGS: Breath sounds decreased. HEART: Rate and Rhythm are regular. First and second heart sounds normal. No murmurs, rubs or gallops. ABDOMEN: Abdominal exam reveals normal bowel sounds. Non-tender and non- distended. No evidence of peritonitis. EXTREMITITES: No clubbing, cyanosis, or edema. Left foot drop. No obvious drainage. 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 History of Any Multi-Drug Resistant Organisms: None Reported Past Surgical History: Adenoidectomy, Tonsillectomy Additional Past Surgical History / Comment(s): Colonoscopy with benign polypectomies Past Anesthesia/Blood Transfusion Reactions: No Reported Reaction Past Psychological History: Anxiety Additional Psychological History / Comment(s): Pt lives alone. He is independent. He was in the and is stationed in [place] as well as in [place], he is considerably too young to be involved in the [place] conflict. No illnesses while he was in . 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 stopped smoking about a year ago. Denies significant alcohol or recreational drug use. His parents are highly involved. No animal exposures. No recent travel. Denied any sexual partners at this time. Smoking Status: Current some day smoker Past Alcohol Use History: None Reported Additional Past Alcohol Use History / Comment(s): SMOKING: QUIT 2016, FOR 40 YRS, 2-3 PPD. Past Drug Use History: Marijuana Additional Drug Use History / Comment(s): Pt states he quit smoking marijuana and that he has not smoked marijuana in 4 months. - Past Family History Father Family Medical History: Diabetes Mellitus Additional Family Medical History / Comment(s): Father had gallbladder disease. He is 77yrs old. Mother Family Medical History: Hyperlipidemia Medications and Allergies Home Medications Medication Instructions Recorded Confirmed Type Atorvastatin [Lipitor] 80 mg PO HS 08/15/16 01/05/19 History Alogliptin Benzoate [Alogliptin] 25 mg PO DAILY 01/05/19 01/05/19 History Sertraline [Zoloft] 50 mg PO DAILY 01/05/19 01/05/19 History Amoxicillin/Potassium Clav 1 tab PO Q12HR #20 tab 01/09/19 Rx [Augmentin 875-125 Tablet] INSULIN ASPART (NovoLOG) [NovoLOG 14 unit SQ AC-SUPPER vial 01/09/19 Rx (formulary)] Insulin Detemir (Levemir) [Levemir] 45 unit SQ HS syr 01/09/19 Rx Metoprolol Tartrate [Lopressor] 50 mg PO BID #10 tab 01/09/19 Rx traMADol HCL [Ultram] 50 mg PO Q6HR PRN 3 Days #12 tab 01/09/19 Rx Allergies Allergy/AdvReac Type Severity Reaction Status Date / Time Tetanus Vaccines and Toxoid Allergy Rash/Hives Verified 01/05/19 11:42 Physical Exam Vitals: Vital Signs Temp Pulse Resp BP Pulse Ox 01/12/19 07:26 98.1 F 59 L 16 129/78 99 01/12/19 01:35 98.3 F 62 17 116/74 98 01/12/19 00:10 17 01/11/19 19:50 64 14 01/11/19 19:35 98.1 F 67 18 127/82 96 01/11/19 16:00 12 01/11/19 14:47 98 F 64 12 103/69 98 Intake and Output 01/11/19 01/12/19 01/12/19 22:59 06:59 14:59 Intake Total 150 750 180 Output Total 600 Balance -450 750 180 Intake: Intake, IV Titration 100 Amount Piperacillin-Tazobactam 3 100 .375 gm In Sodium Chloride 0.9% 100 ml @ 25 mls/hr IVPB Q8H [facility] Rx#: [id number] Oral 150 650 180 Output: Emesis 600 Other: # Voids 1 1 Results - Lab Results Most recent lab results Calcium 7.4 mg/dL (8.4-10.2) L 01/12/19 07:37 01/12/19 07:37 01/12/19 07:37 Assessment and Plan Plan: Assessment: 1. Acute kidney injury secondary to ATN secondary to infection. Urine eosinophils elevated at 2%. He does have RBCs but minimal white cells on UA. With ALLERGIC interstitial nephritis, one would expect more white cells in the urine. Baseline creatinine is near 1. It is 1.56 today. No hydronephrosis noted on renal ultrasound. 2. Left big toe gangrene status post amputation this admission. 3. Insulin-dependent diabetes mellitus. 4. Hyponatremia secondary to acute kidney injury. No improvement with normal saline. 5. Anemia. Rule out iron deficiency. 6. Suicidal ideation and attempt. Plan: I will decrease rate of normal saline to 50 mL an hour. Repeat urine eosinophils - if still positive, I will do a trial of steroids. Check iron studies. Avoid nephrotoxins. Encouraged oral intake. Add 1200 mL fluid restriction. Check urine sodium and osmolality. Repeat electrolytes in the morning. Thank you for the consultation. I will continue to follow the patient with you during his hospital stay.
[2019-01-12 12:33] LABS: Glucose,Whole Blood 226 mg/dL (75-99)
--- NOTE | 2019-01-12 13:44 | P.PN ---
Subjective Patient is admitted after suicide attempt with the knife and laceration to the left forearm which need delayed closure an orthopedic surgery will do that tomorrow. Patient also has severe peripheral vascular disease with the possible dry gangrene because of leukocytosis and patient was started on antibiotics and infectious disease will evaluate the patient. White blood cell count has come down serum random creatinine has come down significantly along with blood sugars although they're not the controlled I'm increasing pre-meal as well as long- acting insulin. 01/07/2019 Patient's laceration was sutured and repaired, patient will undergo amputation of the left great toe patient remains on vancomycin and Zosyn. Patient's serum sodium improved to 1:30 4C serum creatinine improved to 1.09. Blood sugars are well controlled although his insulin long-acting need to be cut down to 30 units as he will be nothing by mouth for amputation procedure tomorrow leukocytosis improved. Psychiatry evaluated the patient 01/08/2019 Patient underwent amputation of the left great toe. Clinically doing well. Patient's hemoglobin is 6.8 and transfusion at 1 unit of PRBC. Patient probably can be discharged tomorrow or day after to psychiatric floor depending on recommendations from vascular surgery potassium will be replaced 01/10/2019 Patient the renal function worse and patient will be increased to drink lots of water, will resume IV fluids at 100 mL per hour and recheck the creatinine tomorrow. 01/11/2019 Patient is a bit hyponatremic creatinine continued to get worse patient remains hyponatremic patient is on IV fluids in spite of which his creatinine continued to worse for last 3 days. We will obtain 9 urine 9 random sodium urine random creatinine are discuss with infectious disease regarding changing vancomycin. Will also obtain urine eosinophils , urine analysis and renal ultrasound. 01/12/2019 Patient was evaluated by nephrology patient is on fluid restriction. If his creatinine remained stable patient can be discharged tomorrow. Constitutional: Denied any fatigue denied any fever. Cardio vascular: denied any chest pain, palpitations Gastrointestinal denied any nausea vomiting Pulmonary: Denied any shortness of breath cough Neurologic denied any new focal deficits All inpatient medications were reviewed and appropriate changes in these medications as dictated in the interval history and assessment and plan. Objective - Vital Signs Vital signs: Vital Signs Temp 98.1 F 01/12/19 07:26 Pulse 59 L 01/12/19 07:26 Resp 16 01/12/19 07:26 BP 129/78 01/12/19 07:26 Pulse Ox 99 01/12/19 07:26 Intake & Output 01/11/19 01/12/19 01/12/19 18:59 06:59 18:59 Intake Total 900 900 420 Output Total 600 Balance 300 900 420 Intake: Intake, IV Titration 900 100 Amount Piperacillin-Tazobactam 3 100 100 .375 gm In Sodium Chloride 0.9% 100 ml @ 25 mls/hr IVPB Q8H [facility] Rx#: [id number] Sodium Chloride 0.9% 1, 800 000 ml @ 100 mls/hr IV . Q10H [facility] Rx#:[id number] Oral 800 420 Output: Emesis 600 Other: # Voids 2 1 - Exam PHYSICAL EXAMINATION: GENERAL: The patient is alert and oriented x3, not in any acute distress. Well developed, well nourished. Patient appears to be little bit more depressed today HEENT: Pupils are round and equally reacting to light. EOMI. No scleral icterus. No conjunctival pallor. Normocephalic, atraumatic. No pharyngeal erythema. No thyromegaly. CARDIOVASCULAR: S1 and S2 present. No murmurs, rubs, or gallops. PULMONARY: Chest is clear to auscultation, no wheezing or crackles. ABDOMEN: Soft, nontender, nondistended, normoactive bowel sounds. No palpable organomegaly. MUSCULOSKELETAL: No joint swelling or deformity. EXTREMITIES: No cyanosis, clubbing, or pedal edema. Amputation of the left great toe and the laceration in the left wrist was repaired NEUROLOGICAL: Gross neurological examination did not reveal any focal deficits. SKIN: No rashes. - Labs CBC & Chem 7: 01/12/19 07:37 01/12/19 07:37 Labs: Abnormal Lab Results - Last 24 Hours (Table) 01/11/19 01/11/19 01/12/19 Range/Units 16:41 20:56 05:20 WBC (3.8-10.6) k/uL RBC (4.30-5.90) m/uL Hgb (13.0-17.5) gm/dL Hct (39.0-53.0) % RDW (11.5-15.5) % Sodium (137-145) mmol/L BUN (9-20) mg/dL Creatinine (0.66-1.25) mg/dL Glucose (74-99) mg/dL POC Glucose (mg/dL) 276 H 259 H (75-99) mg/dL Calcium (8.4-10.2) mg/dL Urine Protein 2+ H (Negative) Urine Glucose (UA) 1+ H (Negative) Urine Blood Large H (Negative) Urine RBC >182 H (0-5) /hpf Urine WBC 6 H (0-5) /hpf Urine Mucus Rare H (None) /hpf Urine Yeast (Budding) Rare H (None) /hpf 01/12/19 01/12/19 01/12/19 Range/Units 07:06 07:37 07:37 WBC 22.6 H (3.8-10.6) k/uL RBC 3.05 L (4.30-5.90) m/uL Hgb 8.9 L (13.0-17.5) gm/dL Hct 28.6 L (39.0-53.0) % RDW 16.1 H (11.5-15.5) % Sodium 131 L (137-145) mmol/L BUN 56 H (9-20) mg/dL Creatinine 1.56 H (0.66-1.25) mg/dL Glucose 202 H (74-99) mg/dL POC Glucose (mg/dL) 241 H (75-99) mg/dL Calcium 7.4 L (8.4-10.2) mg/dL Urine Protein (Negative) Urine Glucose (UA) (Negative) Urine Blood (Negative) Urine RBC (0-5) /hpf Urine WBC (0-5) /hpf Urine Mucus (None) /hpf Urine Yeast (Budding) (None) /hpf 01/12/19 Range/Units 12:21 WBC (3.8-10.6) k/uL RBC (4.30-5.90) m/uL Hgb (13.0-17.5) gm/dL Hct (39.0-53.0) % RDW (11.5-15.5) % Sodium (137-145) mmol/L BUN (9-20) mg/dL Creatinine (0.66-1.25) mg/dL Glucose (74-99) mg/dL POC Glucose (mg/dL) 226 H (75-99) mg/dL Calcium (8.4-10.2) mg/dL Urine Protein (Negative) Urine Glucose (UA) (Negative) Urine Blood (Negative) Urine RBC (0-5) /hpf Urine WBC (0-5) /hpf Urine Mucus (None) /hpf Urine Yeast (Budding) (None) /hpf Microbiology - Last 24 Hours (Table) 01/05/19 20:01 Blood Culture - Final Blood No Growth after 144 hours Assessment and Plan Plan: -Peripheral vascular disease with gangrene of the left great toe mostly appears to be dry gangrene clinically since he has elevated white blood cell count which improved patient was started on vancomycin and Zosyn cultures were negative so far, patient is status post amputation of the left great toe. -acute renal failure: Further workup as mentioned above, nephrology consultation as mentioned above. -Laceration of the left wrist and suicide attempt: Status post repair -Acute blood loss anemia from surgery: Received 1 unit of blood transfusion -Depression and suicide attempt: Psychiatric evaluated the patient, patient will be transferred to psychiatric floor most probably tomorrow -Type 2 diabetes mellitus uncontrolled blood sugars are fairly well controlled now -Hyponatremia: Hypovolemic hyponatremia improved initially now started to get worse. 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
[2019-01-12] MEDS: AMOXIC-POT CLAV 500-125 MG 1 EACH TAB PO SCH ×2 (14:49→20:51)
--- NOTE | 2019-01-12 16:34 | P.PN ---
Subjective Progress Note Date: 01/12/19 58-year-old male with multiple medical troubles including diabetes peripheral vascular disease and is a relates to difficulties with mental illness in had a suicide attempt with injury to his left arm. The 18 cm laceration is no been repaired by orthopedics consult was requested regarding antibiotic therapy especially regarding the gangrenous left foot great toe. Patient is also being seen by vascular surgery. Patient was at this time is relatively well. Pain at the surgical site he is without fevers chills rigors or sweats. He has uncontrolled diabetes mellitus with a hemoglobin A1c of 11 01/08/2019 patient is feeling somewhat better. The to amputation as occurred. He is denying any other new acute complaints 01/11/2019 patient is feeling somewhat better. He does relate to ongoing difficulties with his depression and relates that he is in need of further intervention. Does continue to have a sitter. He voices no other suicidal ideation but regrets that his suicide attempt was not successful. He is pleasant in thankful that he is still here however. Complaints of little discomfort at the self-inflicted injury to the left wrist and no pain at the left toe amputation site 01/12/2019 the patient is feeling considerably better [place] continues to have difficulties with his depression. Is not having any pain at the left wrist or left great toe site. Objective - Vital Signs Vital signs: Vital Signs Temp 97.8 F 01/12/19 14:52 Pulse 62 01/12/19 14:52 Resp 15 01/12/19 14:52 BP 108/71 01/12/19 14:52 Pulse Ox 100 01/12/19 14:52 Intake & Output 01/11/19 01/12/19 01/12/19 18:59 06:59 18:59 Intake Total 900 900 420 Output Total 600 Balance 300 900 420 Intake: Intake, IV Titration 900 100 Amount Piperacillin-Tazobactam 3 100 100 .375 gm In Sodium Chloride 0.9% 100 ml @ 25 mls/hr IVPB Q8H [facility] Rx#: [id number] Sodium Chloride 0.9% 1, 800 000 ml @ 100 mls/hr IV . Q10H [facility] Rx#:[id number] Oral 800 420 Output: Emesis 600 Other: # Voids 2 1 - Exam Pleasant obese 58-year-old male, not in acute distress HEENT: Anicteric conjunctiva are pink and moist nasal mucosa grossly intact without significant lesions, there is no thrush. Neck: The neck is supple without significant lymphadenopathy or thyromegaly. Lungs: Good bilateral air entry without significant crackles or wheezing. There is no significant bronchial sounds. There is no egophony or dullness. Heart: Regular rate and rhythm with an audible S1-S2, no S3 no S4. There is no significant murmur click or rub, PMI was nondisplaced. Abdomen: Positive bowel sounds soft and nontender without palpable masses or organomegaly. There was no guarding or rebound. Extremities: The left upper extremity reveals evidence of the healing self- inflicted injury site. It is well approximated without drainage or erythema. Does have evidence of a significant function of the hand. The fluctuation of amputation to the distal aspect of the left great toe. Site is well approximate d with no purulent drainage there is no significant serous drainage today as there was postoperative Neuro: Awake alert oriented to person place and time. The patient is evidence of significant and dense peripheral neuropathy to the lower extremities - Labs CBC & Chem 7: 01/12/19 07:37 01/12/19 07:37 Labs: Abnormal Lab Results - Last 24 Hours (Table) 01/11/19 01/11/19 01/12/19 Range/Units 16:41 20:56 05:20 WBC (3.8-10.6) k/uL RBC (4.30-5.90) m/uL Hgb (13.0-17.5) gm/dL Hct (39.0-53.0) % RDW (11.5-15.5) % Sodium (137-145) mmol/L BUN (9-20) mg/dL Creatinine (0.66-1.25) mg/dL Glucose (74-99) mg/dL POC Glucose (mg/dL) 276 H 259 H (75-99) mg/dL Calcium (8.4-10.2) mg/dL Urine Protein 2+ H (Negative) Urine Glucose (UA) 1+ H (Negative) Urine Blood Large H (Negative) Urine RBC >182 H (0-5) /hpf Urine WBC 6 H (0-5) /hpf Urine Mucus Rare H (None) /hpf Urine Yeast (Budding) Rare H (None) /hpf 0401/12/19 01/12/19 Range/Units 07:06 07:37 07:37 WBC 22.6 H (3.8-10.6) k/uL RBC 3.05 L (4.30-5.90) m/uL Hgb 8.9 L (13.0-17.5) gm/dL Hct 28.6 L (39.0-53.0) % RDW 16.1 H (11.5-15.5) % Sodium 131 L (137-145) mmol/L BUN 56 H (9-20) mg/dL Creatinine 1.56 H (0.66-1.25) mg/dL Glucose 202 H (74-99) mg/dL POC Glucose (mg/dL) 241 H (75-99) mg/dL Calcium 7.4 L (8.4-10.2) mg/dL Urine Protein (Negative) Urine Glucose (UA) (Negative) Urine Blood (Negative) Urine RBC (0-5) /hpf Urine WBC (0-5) /hpf Urine Mucus (None) /hpf Urine Yeast (Budding) (None) /hpf 01/12/19 Range/Units 12:21 WBC (3.8-10.6) k/uL RBC (4.30-5.90) m/uL Hgb (13.0-17.5) gm/dL Hct (39.0-53.0) % RDW (11.5-15.5) % Sodium (137-145) mmol/L BUN (9-20) mg/dL Creatinine (0.66-1.25) mg/dL Glucose (74-99) mg/dL POC Glucose (mg/dL) 226 H (75-99) mg/dL Calcium (8.4-10.2) mg/dL Urine Protein (Negative) Urine Glucose (UA) (Negative) Urine Blood (Negative) Urine RBC (0-5) /hpf Urine WBC (0-5) /hpf Urine Mucus (None) /hpf Urine Yeast (Budding) (None) /hpf Microbiology - Last 24 Hours (Table) 01/05/19 20:01 Blood Culture - Final Blood No Growth after 144 hours Laboratory Results WBC 22.6 k/uL (3.8-10.6) H 01/12/19 07:37 RBC 3.05 m/uL (4.30-5.90) L 01/12/19 07:37 Hgb 8.9 gm/dL (13.0-17.5) L 01/12/19 07:37 Hct 28.6 % (39.0-53.0) L 01/12/19 07:37 MCV 93.8 fL (80.0-100.0) 01/12/19 07:37 MCH 29.3 pg (25.0-35.0) 01/12/19 07:37 MCHC 31.2 g/dL (31.0-37.0) 01/12/19 07:37 RDW 16.1 % (11.5-15.5) H 01/12/19 07:37 Plt Count 413 k/uL (150-450) 01/12/19 07:37 Neutrophils % 76 % 01/08/19 05:51 Lymphocytes % 14 % 01/08/19 05:51 Monocytes % 7 % 01/08/19 05:51 Eosinophils % 1 % 01/08/19 05:51 Basophils % 0 % 01/08/19 05:51 Neutrophils # 10.4 k/uL (1.3-7.7) H 01/08/19 05:51 Lymphocytes # 1.9 k/uL (1.0-4.8) 01/08/19 05:51 Monocytes # 0.9 k/uL (0-1.0) 01/08/19 05:51 Eosinophils # 0.1 k/uL (0-0.7) 01/08/19 05:51 Basophils # 0.0 k/uL (0-0.2) 01/08/19 05:51 Hypochromasia Slight 01/12/19 07:37 Poikilocytosis Slight 01/12/19 07:37 Anisocytosis Slight 01/12/19 07:37 Sodium 131 mmol/L (137-145) L 01/12/19 07:37 Potassium 4.9 mmol/L (3.5-5.1) 01/12/19 07:37 Chloride 100 mmol/L (98-107) 01/12/19 07:37 Carbon Dioxide 22 mmol/L (22-30) 01/12/19 07:37 Anion Gap 9 mmol/L 01/12/19 07:37 BUN 56 mg/dL (9-20) H 01/12/19 07:37 Creatinine 1.56 mg/dL (0.66-1.25) H 01/12/19 07:37 Est GFR (CKD-EPI)AfAm 56 (>60 ml/min/1.73 sqM) 01/12/19 07:37 Est GFR (CKD-EPI)NonAf 49 (>60 ml/min/1.73 sqM) 01/12/19 07:37 Glucose 202 mg/dL (74-99) H 01/12/19 07:37 POC Glucose (mg/dL) 226 mg/dL (75-99) H 01/12/19 12:21 POC Glu Cemetery Keeper ID Jayla Hewitt 01/12/19 12:[address] Glu mg/dL 269 01/06/19 07:14 Hemoglobin A1c 11.0 % (4.0-6.0) H 01/06/19 07:14 Osmolality 300 mosm/kg (280-301) 01/12/19 07:37 Plasma Lactic Acid [place] 1.8 mmol/L (0.7-2.0) 01/06/19 01:32 Calcium 7.4 mg/dL (8.4-10.2) L 01/12/19 07:37 TSH 4.950 mIU/L (0.465-4.680) H 01/05/19 19:16 Urine Color Yellow 01/12/19 05:20 Urine Appearance Clear (Clear) 01/12/19 05:20 Urine pH 6.0 (5.0-8.0) 01/12/19 05:20 Ur Specific [place] 1.026 (1.001-1.035) 01/12/19 05:20 Urine Protein 2+ (Negative) H 01/12/19 05:20 Urine Glucose (UA) 1+ (Negative) H 01/12/19 05:20 Urine Ketones Negative (Negative) 01/12/19 05:20 Urine Blood Large (Negative) H 01/12/19 05:20 Urine Nitrite Negative (Negative) 01/12/19 05:20 Urine Bilirubin Negative (Negative) 01/12/19 05:20 Urine Urobilinogen <2.0 mg/dL (<2.0) 01/12/19 05:20 Ur Leukocyte Esterase Negative (Negative) 01/12/19 05:20 Urine RBC >182 /hpf (0-5) H 01/12/19 05:20 Urine WBC 6 /hpf (0-5) H 01/12/19 05:20 Ur Squamous Epith Cells <1 /hpf (0-4) 01/12/19 05:20 Hyaline Casts 23 /lpf (0-2) H 01/05/19 19:16 Urine Mucus Rare /hpf (None) H 01/12/19 05:20 Urine Yeast (Budding) Rare /hpf (None) H 01/12/19 05:20 Urine Eosinophils 2 % 01/11/19 13:46 Ur Random Creatinine 109.7 mg/dL 01/11/19 13:46 Vancomycin Trough 24.2 ug/mL 01/10/19 13:48 Urine Opiates Screen Not Detected (NotDetected) 01/05/19 17:45 Ur Oxycodone Screen Not Detected (NotDetected) 01/05/19 17:45 Urine Methadone Screen Not Detected (NotDetected) 01/05/19 17:45 Ur Propoxyphene Screen Not Detected (NotDetected) 01/05/19 17:45 Ur Barbiturates Screen Not Detected (NotDetected) 01/05/19 17:45 U Tricyclic Antidepress Not Detected (NotDetected) 01/05/19 17:45 Ur Phencyclidine Scrn Not Detected (NotDetected) 01/05/19 17:45 Ur Amphetamines Screen Not Detected (NotDetected) 01/05/19 17:45 U Methamphetamines Scrn Not Detected (NotDetected) 01/05/19 17:45 U Benzodiazepines Scrn Not Detected (NotDetected) 01/05/19 17:45 Urine Cocaine Screen Not Detected (NotDetected) 01/05/19 17:45 U Marijuana (THC) Screen Detected (NotDetected) H 01/05/19 17:45 Blood Type A Positive 01/08/19 07:29 Blood Type Confirm A Positive 01/08/19 05:51 Blood Type Recheck CABO Indicated 01/08/19 07:29 Antibody Screen NEGATIVE 01/08/19 07:29 Crossmatch See Detail 01/08/19 07:29 Spec Expiration Date 01/11/2019232801/08/19 07:29 Microbiology 01/05/19 20:01 Blood Blood Culture - Final No Growth after 144 hours Assessment and Plan (1) Laceration of left wrist Current Visit: Yes Status: Acute Code(s): S61.512A - LACERATION WITHOUT FOREIGN BODY OF LEFT WRIST, INIT ENCNTR SNOMED Code(s): 795348428 (2) 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 Does have a dry gangrenous changes left great toe. He has been seen by vascular surgery with plans for amputation in the near future. Antibiotic therapy for same with Zosyn which is an appropriate choice. He will be discharged this can be transitioned to oral Augmentin the timeframe before the planned amputation to the dry gangrenous changes to the left foot. It is related that he had vascular workup in the past. He needs improved control of blood glucose if there is to be adequate healing of the left arm injury and amputation site to the left foot at the time of that surgery. Multivitamin with zinc should be added to help his nutritional status. 01/08/2019 the patient has improvement of his status no status post amputation. With this he will not require long-term IV antibiotic therapy. Local wound care and antibiotics will be decided as the site improves. 01/11/2019 is evidence of some worsening of his acute renal failure. Possibly due to the current metabolic situation, possibly exacerbated by the combination of vancomycin and Zosyn. With a toe amputated May streamline antibiotic therapy to just Augmentin to complete the next week or so therapy until he has follow-up in the outpatient setting. Nonstick dressings are applied to both the wrist and toe wrapped and place. He's being followed by nephrology. He received fluid and hopefully with discontinuation of the combination intravenous antibiotic therapy he will have rapid improvement of his renal function did 01/12/2019 the patient's renal failure has been noted and is being seen by nephrology. Offending agents have been removed. Concerned about the combined toxicity of vancomycin and Zosyn. He is now on oral Augmentin. At this time no other acute infectious event noted and he is being closely followed by nephrology. Has been seen by psychiatry and awaiting any further psychiatric plans. Patient is amenable to inpatient treatment. Current Visit: No Status: Acute Code(s): E08.621 - DIABETES MELLITUS DUE TO UNDERLYING CONDITION W FOOT ULCER; L97.524 - NON-PRS CHRONIC ULCER OTH PRT LEFT FOOT W NECROSIS OF BONE SNOMED Code(s): 097130531
[2019-01-12 17:25] LABS: Iron Saturation 13.33 (15.00-50.00)
[2019-01-12 17:41] LABS: Glucose,Whole Blood 266 mg/dL (75-99)
[2019-01-12 20:12] LABS: Glucose,Whole Blood 262 mg/dL (75-99)
[2019-01-12] MEDS: ATORVASTATIN 80 MG TAB PO SCH (20:51)
[2019-01-12] MEDS: INSULIN DETEMIR (LEVEMIR) 100 UNIT/ML SYR SQ SCH (20:51)
[2019-01-13] MEDS: HEPARIN SODIUM,PORCINE 5,000 UNIT/ML 1 ML VIAL SQ SCH ×3 (00:15→15:39)
[2019-01-13] MEDS: LACTATED RINGERS 1,000 ML IV SCH (07:20)
[2019-01-13 07:35] LABS: Glucose,Whole Blood 182 mg/dL (75-99)
[2019-01-13 08:16] VITALS: RESP 16
[2019-01-13] MEDS: INSULIN ASPART (NovoLOG) 100 UNIT/ML VIAL SQ SCH ×2 (08:22→12:48)
[2019-01-13] MEDS: SERTRALINE 50 MG TAB PO SCH (08:23)
[2019-01-13] MEDS: FAMOTIDINE 20 MG TAB PO SCH (08:23)
[2019-01-13] MEDS: AMOXIC-POT CLAV 500-125 MG 1 EACH TAB PO SCH (08:23)
[2019-01-13] MEDS: LINAGLIPTIN 5 MG TABLET PO SCH (08:23)
[2019-01-13] MEDS: METOPROLOL TARTRATE 50 MG TAB PO SCH (08:23)
[2019-01-13] MEDS: SODIUM CHLORIDE 0.9% 1,000 ML IV SCH (08:32)
[2019-01-13 09:53] LABS: Calcium 7.8 mg/dL (8.4-10.2); Potassium 4.7 mmol/L (3.5-5.1)
[2019-01-13 10:28] LABS: Albumin 2.7 g/dL (3.5-5.0); Total Bilirubin 1.1 mg/dL (0.2-1.3); Total Protein 5.2 g/dL (6.3-8.2)
[2019-01-13 10:29] LABS: Anisocytosis Slight; Basophils # (A) 0.2 k/uL (0-0.2); Basophils % (A) 1 %; Eosinophils # (A) 0.2 k/uL (0-0.7); Eosinophils % (A) 1 %; HGB 8.3 gm/dL (13.0-17.5); Hypochromasia Moderate; Lymphocytes # (A) 2.5 k/uL (1.0-4.8); Lymphocytes % (A) 12 %; MCHC 30.9 g/dL (31.0-37.0); MCV 93.8 fL (80.0-100.0); Mean Platelet Volume 8.3; Monocytes # (A) 0.9 k/uL (0-1.0); Monocytes % (A) 5 %; Neutrophils # (A) 16.2 k/uL (1.3-7.7); Neutrophils % (A) 80 %; Platelet Count 357 k/uL (150-450); Poikilocytosis Slight; RBC 2.88 m/uL (4.30-5.90); RDW 17.6 % (11.5-15.5); WBC 20.3 k/uL (3.8-10.6)
[2019-01-13 10:46] LABS: Large Platelets Present
[2019-01-13 12:13] LABS: Glucose,Whole Blood 227 mg/dL (75-99)
--- NOTE | 2019-01-13 12:48 | P.PN ---
Subjective Patient is seen in follow-up for acute kidney injury. Renal function is better. Creatinine 1.27 today. Oral intake is good. Good urine output. Sodium level stable at 131. Vital signs are stable. General: The patient appeared well nourished and normally developed. HEENT: Head exam is unremarkable. Neck is without jugular venous distension. LUNGS: Lungs are clear to auscultation and percussion. Breath sounds decreased. HEART: Rate and Rhythm are regular. First and second heart sounds normal. No murmurs, rubs or gallops. ABDOMEN: Abdominal exam reveals normal bowel sounds. Non-tender and non- distended. No evidence of peritonitis. EXTREMITITES: 1+ edema. Objective - Vital Signs Vital signs: Vital Signs Temp 97.9 F 01/13/19 07:00 Pulse 60 01/13/19 07:00 Resp 16 01/13/19 08:00 BP 116/75 01/13/19 07:00 Pulse Ox 99 01/13/19 07:00 Intake & Output 01/12/19 01/13/19 01/13/19 18:59 06:59 18:59 Intake Total 420 400 326 Output Total 200 Balance 420 400 126 Weight 108.862 kg Intake: Intake, IV Titration 400 Amount Sodium Chloride 0.9% 1, 400 000 ml @ 50 mls/hr IV . Q20H [facility] Rx#:[id number] Oral 420 326 Output: Urine 200 Other: Voiding Method Urinal Toilet Urinal # Voids 3 1 # Bowel Movements 1 - Labs CBC & Chem 7: 01/13/19 09:02 01/13/19 09:02 Labs: Abnormal Lab Results - Last 24 Hours (Table) 01/12/19 01/12/19 01/12/19 Range/Units 07:37 17:19 20:00 WBC (3.8-10.6) k/uL RBC (4.30-5.90) m/uL Hgb (13.0-17.5) gm/dL Hct (39.0-53.0) % MCHC (31.0-37.0) g/dL RDW (11.5-15.5) % Neutrophils # (1.3-7.7) k/uL Sodium (137-145) mmol/L BUN (9-20) mg/dL Creatinine (0.66-1.25) mg/dL Glucose (74-99) mg/dL POC Glucose (mg/dL) 266 H 262 H (75-99) mg/dL Calcium (8.4-10.2) mg/dL Iron 32 L (65-175) ug/dL Iron Saturation 13.33 L (15.00-50.00) Ferritin 1336.3 H (22.0-322.0) ng/mL AST (17-59) U/L ALT (21-72) U/L Alkaline Phosphatase (38-126) U/L Total Protein (6.3-8.2) g/dL Albumin (3.5-5.0) g/dL 01/13/19 01/13/19 01/13/19 Range/Units 07:24 09:02 09:02 WBC 20.3 H (3.8-10.6) k/uL RBC 2.88 L (4.30-5.90) m/uL Hgb 8.3 L (13.0-17.5) gm/dL Hct 27.0 L (39.0-53.0) % MCHC 30.9 L (31.0-37.0) g/dL RDW 17.6 H (11.5-15.5) % Neutrophils # 16.2 H (1.3-7.7) k/uL Sodium 131 L (137-145) mmol/L BUN 54 H (9-20) mg/dL Creatinine 1.27 H (0.66-1.25) mg/dL Glucose 190 H (74-99) mg/dL POC Glucose (mg/dL) 182 H (75-99) mg/dL Calcium 7.8 L (8.4-10.2) mg/dL Iron (65-175) ug/dL Iron Saturation (15.00-50.00) Ferritin (22.0-322.0) ng/mL AST 846 H (17-59) U/L ALT 1761 H (21-72) U/L Alkaline Phosphatase 441 H (38-126) U/L Total Protein 5.2 L (6.3-8.2) g/dL Albumin 2.7 L (3.5-5.0) g/dL 01/13/19 Range/Units 12:02 WBC (3.8-10.6) k/uL RBC (4.30-5.90) m/uL Hgb (13.0-17.5) gm/dL Hct (39.0-53.0) % MCHC (31.0-37.0) g/dL RDW (11.5-15.5) % Neutrophils # (1.3-7.7) k/uL Sodium (137-145) mmol/L BUN (9-20) mg/dL Creatinine (0.66-1.25) mg/dL Glucose (74-99) mg/dL POC Glucose (mg/dL) 227 H (75-99) mg/dL Calcium (8.4-10.2) mg/dL Iron (65-175) ug/dL Iron Saturation (15.00-50.00) Ferritin (22.0-322.0) ng/mL AST (17-59) U/L ALT (21-72) U/L Alkaline Phosphatase (38-126) U/L Total Protein (6.3-8.2) g/dL Albumin (3.5-5.0) g/dL Assessment and Plan Plan: Assessment: 1. Acute kidney injury secondary to ATN secondary to infection. Urine eosinophils elevated at 2% - repeat 0%. Baseline creatinine is near 1. Creatinine peaked at 1.56 this admission - 1.7 today. No hydronephrosis noted on renal ultrasound. 2. Left big toe gangrene status post amputation this admission. 3. Insulin-dependent diabetes mellitus. 4. Hyponatremia secondary to acute kidney injury. No improvement with normal saline. Urine sodium noted to be less than 10. Urine osmolality 642. 5. Anemia. Iron deficiency noted. High ferritin level noted. 6. Suicidal ideation and attempt. 7. Transaminitis. ?Hepatic congestion. Plan: Hep-Lock IV fluids. Lasix 20 g IV once today. Maintain fluid restriction. Avoid nephrotoxins. Encouraged oral intake. Check hepatitis panel. Consider GI evaluation.
[2019-01-13] MEDS ORDERED: FUROSEMIDE 10 MG/ML 2 ML VIAL IV ONE (13:00)
[2019-01-13] MEDS ORDERED: FUROSEMIDE 20 MG TAB PO STA (13:50)
[2019-01-13 14:37] VITALS: BP 149/87; PULSE 68; TEMP 98.5
--- NOTE | 2019-01-13 15:06 | P.DS ---
Providers Date of admission: 01/05/19 19:55 Expected date of discharge: 01/13/19 Attending physician: Mehrdad Gan Consults: 01/05/19 19:54 Consult Physician Routine Consulting Provider: Te Mustafa Consult Reason/Comments: Toe infection Do you want consulting provider notified?: Yes 01/05/19 19:55 Consult Physician Urgent Consulting Provider: Josh Aiken Consult Reason/Comments: depression, suicidal Do you want consulting provider notified?: Yes Consult Physician Urgent Consulting Provider: Truman Suresh Consult Reason/Comments: toe infection, wrist laceration Do you want consulting provider notified?: Yes 01/06/19 10:40 Consult Physician Urgent Consulting Provider: Sandoval Irby Consult Reason/Comments: Left great toe infection Do you want consulting provider notified?: Yes 01/11/19 12:49 Consult Physician Routine Consulting Provider: Maxim Aragon Consult Reason/Comments: AKIL Do you want consulting provider notified?: Yes Primary care physician: [facility] Hospital Course: Discharge Diagnosis -Peripheral vascular disease with gangrene of the left great toe mostly dry gangrene clinically since he has elevated white blood cell count which improved patient was started on vancomycin and Zosyn cultures were negative so far, patient is status post amputation of the left great toe. -acute renal failure: secondary to ATN secondary to infection. improving. . -Laceration of the left wrist and suicide attempt: Status post repair -Acute blood loss anemia from surgery: Received 1 unit of blood transfusion -Depression and suicide attempt: Psychiatric evaluated the patient, patient will be transferred to psychiatric floor most probably tomorrow -Type 2 diabetes mellitus uncontrolled blood sugars are fairly well controlled n ow -Hyponatremia: Hypovolemic hyponatremia improved initially now started to get worse. 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 Patient is admitted after suicide attempt with the knife and laceration to the left forearm which need delayed closure an orthopedic surgery will do that tomorrow. Patient also has severe peripheral vascular disease with the possible dry gangrene because of leukocytosis and patient was started on antibiotics and infectious disease will evaluate the patient. White blood cell count has come down serum random creatinine has come down significantly along with blood sugars although they're not the controlled I'm increasing pre-meal as well as long- acting insulin. 01/07/2019 Patient's laceration was sutured and repaired, patient will undergo amputation of the left great toe patient remains on vancomycin and Zosyn. Patient's serum sodium improved to 1:30 4C serum creatinine improved to 1.09. Blood sugars are well controlled although his insulin long-acting need to be cut down to 30 units as he will be nothing by mouth for amputation procedure tomorrow leukocytosis improved. Psychiatry evaluated the patient 01/08/2019 Patient underwent amputation of the left great toe. Clinically doing well. Patient's hemoglobin is 6.8 and transfusion at 1 unit of PRBC. Patient probably can be discharged tomorrow or day after to psychiatric floor depending on recommendations from vascular surgery potassium will be replaced 01/10/2019 Patient the renal function worse and patient will be increased to drink lots of water, will resume IV fluids at 100 mL per hour and recheck the creatinine tomorrow. 01/11/2019 Patient is a bit hyponatremic creatinine continued to get worse patient remains hyponatremic patient is on IV fluids in spite of which his creatinine continued to worse for last 3 days. We will obtain 9 urine 9 random sodium urine random creatinine are discuss with infectious disease regarding changing vancomycin. Will also obtain urine eosinophils , urine analysis and renal ultrasound. 01/12/2019 Patient was evaluated by nephrology patient is on fluid restriction. If his creatinine remained stable patient can be discharged tomorrow. 01/13/19 Pt. denied c/o CP/SOB. no N/v/abd.pain. tolerating diet. no fever/chills. Renal function improved. still feels depressed. cleared to be discharged to the inpatient Psych Unit. GENERAL: The patient is alert and oriented x3, not in any acute distress. Well developed, well nourished. Patient appears to be little bit more depressed today HEENT: Pupils are round and equally reacting to light. EOMI. No scleral icterus. No conjunctival pallor. Normocephalic, atraumatic. No pharyngeal erythema. No thyromegaly. CARDIOVASCULAR: S1 and S2 present. No murmurs, rubs, or gallops. PULMONARY: Chest is clear to auscultation, no wheezing or crackles. ABDOMEN: Soft, nontender, nondistended, normoactive bowel sounds. No palpable organomegaly. MUSCULOSKELETAL: No joint swelling or deformity. EXTREMITIES: No cyanosis, clubbing, or pedal edema. Amputation of the left g reat toe and the laceration in the left wrist was repaired NEUROLOGICAL: Gross neurological examination did not reveal any focal deficits. Vital Signs 01/13/19 01/13/19 08:00 14:37 Temperature 98.5 F Pulse Rate [ 68 Right Supine Pulse Oximetery ] Respiratory 16 16 Rate Blood Pressure 149/87 [Left Arm Supine] O2 Sat by Pulse 98 Oximetry Total time Taken >35 min Patient Condition at Discharge: Fair Plan - Discharge Summary Discharge Rx Participant: No New Discharge Prescriptions: New Insulin Detemir (Levemir) [Levemir] 45 unit SQ HS syr INSULIN ASPART (NovoLOG) [NovoLOG (formulary)] 14 unit SQ AC-SUPPER vial Amoxicillin/Potassium Clav [Augmentin 875-125 Tablet] 1 tab PO Q12HR #20 tab traMADol HCL [Ultram] 50 mg PO Q6HR PRN 3 Days #12 tab PRN Reason: Pain Metoprolol Tartrate [Lopressor] 50 mg PO BID #10 tab Continue Atorvastatin [Lipitor] 80 mg PO HS Alogliptin Benzoate [Alogliptin] 25 mg PO DAILY Sertraline [Zoloft] 50 mg PO DAILY Discontinued Atenolol 25 mg PO QAM metFORMIN HCL 1,000 mg PO BID ALPRAZolam [Xanax] 1 mg PO DAILY Insulin Glargine [Lantus] 35 unit SQ HS Insulin Aspart [NovoLOG Flexpen] 3 units SQ W/SUPPER Discharge Medication List Atorvastatin [Lipitor] 80 mg PO HS 08/15/16 [History] Alogliptin Benzoate [Alogliptin] 25 mg PO DAILY 01/05/19 [History] Sertraline [Zoloft] 50 mg PO DAILY 01/05/19 [History] Amoxicillin/Potassium Clav [Augmentin 875-125 Tablet] 1 tab PO Q12HR #20 tab 01/09/19 [Rx] INSULIN ASPART (NovoLOG) [NovoLOG (formulary)] 14 unit SQ AC-SUPPER vial 01/09/19 [Rx] Insulin Detemir (Levemir) [Levemir] 45 unit SQ HS syr 01/09/19 [Rx] Metoprolol Tartrate [Lopressor] 50 mg PO BID #10 tab 01/09/19 [Rx] traMADol HCL [Ultram] 50 mg PO Q6HR PRN 3 Days #12 tab 01/09/19 [Rx] Follow up Appointment(s)/Referral(s): Mehrdad Ravi PAC [PHYSICIAN [employer]] - 2 Weeks Sandoval Irby MD [STAFF PHYSICIAN] - 1 Week [facility] [Primary Care Provider] - 1-2 days Activity/Diet/Wound Care/Special Instructions: Orthopedic discharge instructions: 1. Do not remove stitches 2. Keep incision covered and dry with gauze 3. Change dressing every 2 days 4. Avoid strenuous activity with regards to the left hand 5. Follow-up in 2 weeks for stitch removal Left Great Toe Amputation: Vaseline dressing with, nonadherent dressing, and wrapped with gauze. Discharge Disposition: TRANSFER TO PSYCH HOSP/UNIT
[2019-01-13 20:40] LABS: Hepatitis A Antibody IgM Non-Reactive (Non-Reactive); Hepatitis B Core IgM Non-Reactive (Non-Reactive)
--- NOTE | 2019-01-14 08:52 | CDI ---
Documentation Clarification Form Date: 01/14/19 From: Reina Cummings Phone: If you have a question regarding this query, please contact Renetta Allen at [phone] between 8am and 5pm. Admit Date: 01/05/2019 7:55:00 PM Patient Name: Noah Talbot Visit Number: [id number] Discharge Date: 01/13/2019 4:03:00 PM ATTENTION: The Clinical Documentation Specialists (CDI) and [facility] Coding Staff appreciate your assistance in clarifying documentation. Please respond to the clarification below the line at the bottom and electronically sign. The CDI & [facility] Coding staff will review the response and follow-up if needed. Please note: Queries are made part of the Legal Health Record. If you have any questions, please contact the author of this message via ITS. Dr. Mehrdad Gan The patient presented with suicide attempt and diabetes with bone necrosis of the left great toe. Attempted suicide by cutting his left wrist on the day prior to admission and had delayed repair. Per the ED note there was concern for possible sepsis. History/Risk Factors: Patient also had gangrene on admission. Patient has a history of hypertension, CKD II Clinical Indicators: leukocytosis and tachycardia WBC: 34.8 Lactic acid: 1.8 Blood cultures: No growth Vitals signs on admission: T. 97.9, P. 115, R. 18, BP 104/64 Treatment: Antibiotics: IV Vancomycin and IV Zosyn IV Bolus: 3 liters In your professional opinion, please clarify if these findings signify one of the following conditions and cause, if known: Condition Sepsis ruled out Sepsis ruled in Other, please specify Unable to determine ruled out MTDD
--- NOTE | 2019-01-14 09:06 | CDI ---
Documentation Clarification Form Date: 01/14/19 From: Reina Cummings Phone: If you have a question regarding this query, please contact Renetta Allen at [phone] between 8am and 5pm. Admit Date: 01/05/2019 7:55:00 PM Patient Name: Noah Talbot Visit Number: [id number] Discharge Date: 01/13/2019 4:03:00 PM ATTENTION: The Clinical Documentation Specialists (CDI) and [facility] Coding Staff appreciate your assistance in clarifying documentation. Please respond to the clarification below the line at the bottom and electronically sign. The CDI & [facility] Coding staff will review the response and follow-up if needed. Please note: Queries are made part of the Legal Health Record. If you have any questions, please contact the author of this message via ITS. Dr. Sadnoval Irby Per your progress notes/operative note, a debridement of necrotic appearing tissue was done on the wrist during the repair procedure. History/Risk Factors: Patient attempted suicide by cutting his left wrist. Clinical Indicators: 18 cm wound that appeared to be superficial of left wrist. Treatment: Repair and debridement of the laceration. In order to capture the severity of condition and code the appropriate procedure; could you please document the following: Excisional debridement (the removal of necrotic, devitalized tissue or slough by means of cutting away of tissue) Non-excisional debridement (the removal of necrotic, devitalized tissue or slough by means of flushing, brushing, or washing. (Irrigation) Other; please specify Unable to determine MTDD
== END 2019-01-13 16:03 | DRG 255 ==
LOC: EC 11:14 → 4SSUR 19:55
PROVIDERS: ADMIT Internal Medicine; ATTEND Internal Medicine
PROC: 0HDEXZZ Extraction of Left Lower Arm Skin, External Approach (ICD-10-PCS; principal; 2019-01-07 07:00)
PROC: 0HQEXZZ Repair Left Lower Arm Skin, External Approach (ICD-10-PCS; principal; 2019-01-07 07:00)
PROC: 0Y6Q0Z1 Detachment at Left 1st Toe, High, Open Approach (ICD-10-PCS; 2019-01-08)
PROC: 30233N1 Transfusion of Nonautologous Red Blood Cells into Peripheral Vein, Percutaneous Approach (ICD-10-PCS; 2019-01-08)
DX: E11.52 Type 2 diabetes mellitus with diabetic peripheral angiopathy with gangrene (principal); N17.0 Acute kidney failure with tubular necrosis; E87.1 Hypo-osmolality and hyponatremia; D62 Acute posthemorrhagic anemia; E11.22 Type 2 diabetes mellitus with diabetic chronic kidney disease; E11.621 Type 2 diabetes mellitus with foot ulcer; E11.42 Type 2 diabetes mellitus with diabetic polyneuropathy; E11.65 Type 2 diabetes mellitus with hyperglycemia; S61.512A Laceration without foreign body of left wrist, initial encounter; E87.5 Hyperkalemia; T36.8X5A Adverse effect of other systemic antibiotics, initial encounter; T36.0X5A Adverse effect of penicillins, initial encounter; L98.494 Non-pressure chronic ulcer of skin of other sites with necrosis of bone; E78.5 Hyperlipidemia, unspecified; E86.1 Hypovolemia; F17.210 Nicotine dependence, cigarettes, uncomplicated; F32.9 Major depressive disorder, single episode, unspecified; F41.9 Anxiety disorder, unspecified; I12.9 Hypertensive chronic kidney disease with stage 1 through stage 4 chronic kidney disease, or unspecified chronic kidney disease; N18.2 Chronic kidney disease, stage 2 (mild); G47.00 Insomnia, unspecified; E66.9 Obesity, unspecified; Z68.34 Body mass index [BMI] 34.0-34.9, adult; Z79.4 Long term (current) use of insulin; Z79.899 Other long term (current) drug therapy; Z91.14 Patient's other noncompliance with medication regimen; Z86.010 Personal history of colon polyps; Z88.7 Allergy status to serum and vaccine; Z89.422 Acquired absence of other left toe(s); Z83.3 Family history of diabetes mellitus; Z84.89 Family history of other specified conditions; X78.9XXA Intentional self-harm by unspecified sharp object, initial encounter
CPT/HCPCS: 36415; 71046; 76770; 80048; 80053; 80074; 80202; 80306; 81001; 82075; 82570; 82728; 83036; 83540; 83550; 83605; 83930; 83935; 84300; 84443; 85025; 85027; 86850; 86900; 86901; 86920; 87040; 87205; 88305; 88311; 90471; 90715; 96365; 96366; 99285

== ENCOUNTER 2019-01-13 16:05 | Inpatient (IN) | payer OTHER ==
[2019-01-13] MEDS ORDERED: MAGNESIUM HYDROXIDE 2,400 MG/10 ML CUP PO PRN (16:30)
[2019-01-13 17:18] VITALS: BMI 38.7
[2019-01-13] MEDS: INSULIN ASPART (NovoLOG) 100 UNIT/ML VIAL SQ SCH ×3 (17:56→21:12)
[2019-01-13 18:02] LABS: Glucose,Whole Blood 230 mg/dL (75-99)
[2019-01-13 20:37] LABS: Glucose,Whole Blood 219 mg/dL (75-99)
[2019-01-13] MEDS ORDERED: SERTRALINE 25 MG TAB PO ONE (21:00)
[2019-01-13] MEDS: ATORVASTATIN 80 MG TAB PO SCH (21:11)
[2019-01-13] MEDS: AMOXIC-POT CLAV 875-125MG 1 EACH TAB PO SCH (21:11)
[2019-01-13] MEDS: INSULIN DETEMIR (LEVEMIR) 100 UNIT/ML SYR SQ SCH (21:13)
[2019-01-13] MEDS: METOPROLOL TARTRATE 50 MG TAB PO SCH (21:13)
[2019-01-14 06:57] LABS: Glucose,Whole Blood 100 mg/dL (75-99)
[2019-01-14] MEDS: INSULIN ASPART (NovoLOG) 100 UNIT/ML VIAL SQ SCH ×5 (07:56→20:26)
[2019-01-14] MEDS: METOPROLOL TARTRATE 50 MG TAB PO SCH (09:24)
[2019-01-14] MEDS: LINAGLIPTIN 5 MG TABLET PO SCH (09:24)
[2019-01-14] MEDS: AMOXIC-POT CLAV 875-125MG 1 EACH TAB PO SCH ×2 (09:24→21:15)
[2019-01-14 12:58] LABS: Glucose,Whole Blood 114 mg/dL (75-99)
--- NOTE | 2019-01-14 13:52 | P.HP ---
Psychiatric H&P - . H&P Date: 01/14/19 History & Physical: Allergies Allergy/AdvReac Type Severity Reaction Status Date / Time Tetanus Vaccines and Toxoid Allergy Rash/Hives Verified 01/13/19 18:33 Vital Signs Temp 98.5 F 01/14/19 06:31 Pulse 59 L 01/14/19 06:31 Resp 16 01/14/19 06:31 BP 106/51 01/14/19 06:31 Pulse Ox Intake & Output 01/13/19 01/14/19 01/14/19 18:59 06:59 18:59 Weight 122.47 kg Laboratory Last Values POC Glucose (mg/dL) 100 mg/dL (75-99) H 01/14/19 06:55 POC Glu Product Responsibility Liaison ID Radha Carreon 01/14/19 06:55 Assessment and Plan Assessment: Assessment and Plan Chief Complaint: Patient is 58-year-old male past medical history of depression presents after suicidal ideation and suicidal attempt. History of Present Illness: A 58-year-old male. He states that he's been depressed for the last several days. He feels depressed because he is single and has been single is full life and he only has his family. Patient tried to cut his wrists yesterday. He states that the cut happened at approximately 6 AM yesterday. States that he came today because he doesn't know roused ago. Patie nt complains of some pain at the site however denies any numbness and paresthesias to the hand. The ROS documented in this emergency department record has been reviewed and confirmed by me. Those systems with pertinent positive or negative responses have been documented in the HPI. All other systems are other negative and/or noncontributory. ED course: 58-year-old is ends after suicidal attempt. Patient's laceration occurred approximate 6 AM yesterday morning. He is outside of the laceration repair with no given that it has been approximately 30 hours. There does not appear to be any significant hemorrhage occurring upon examination. There does not appear to be any arterial bleeding. Patient given updated tetanus shot. Patient has tenderness listed as one of his ALLERGIES however after further discussion this does not appear to be ALLERGIC reaction. Patient's alcohol breath test is negative. Wound was dressed with petroleum gauze, Kerlix roll and Coban. Patient medically cleared for EPS evaluation. pt presents to EC with c/o feeling suicidal. Pt also c/o left wrist laceration, pt states he cut his wrist early Friday morning in an attempt to kill himselfpt presents to ER after cutting his left wrist Friday morning. pt has vertical and horizontal laceration on his wrist that has been cleaned and is currently wrapped. pt's large toe on his left foot is also necrotic. pt reports that he had an ingrown toenail and that, when he "popped it out, the whole nail popped off." pt states that he is in the ER because "I wanted to . That's why I did that. I have nothing to look forward to." pt reports that lack of close friend or girlfriend for 8 years, disappointment with his occupation, fear of disappointing his parents, and an injury on his toe after having already lost one toe caused increased depression resulting in suicide attempt. pt states that, "It wouldn't bleed. It bled a little, but it just wouldn't really bleed. And once I started, I felt like I had to finish." - Related Data Home Medications Medication Instructions Recorded Confirmed Atenolol 25 mg PO QAM 08/15/16 01/05/19 Atorvastatin [Lipitor] 80 mg PO HS 08/15/16 01/05/19 metFORMIN HCL 1,000 mg PO BID 08/15/16 01/05/19 ALPRAZolam [Xanax] 1 mg PO DAILY 06/16/17 01/05/19 Insulin Glargine [Lantus] 35 unit SQ HS 10/17/17 01/05/19 Alogliptin Benzoate [Alogliptin] 25 mg PO DAILY 01/05/19 01/05/19 Insulin Aspart [NovoLOG Flexpen] 3 units SQ DAILY 01/05/19 01/05/19 Sertraline [Zoloft] 50 mg PO DAILY 01/05/19 01/05/19 Allergies Allergy/AdvReac Type Severity Reaction Status Date / Time Tetanus Vaccines and Toxoid Allergy Rash/Hives Verified 01/05/19 11:42 Past Medical History Past Medical History: Diabetes Mellitus, Hyperlipidemia, Hypertension, Neurologic Disorder Additional Past Medical History / Comment(s): NIDDM type II, 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 History of Any Multi-Drug Resistant Organisms: None Reported Past Surgical History: Adenoidectomy, Tonsillectomy Additional Past Surgical History / Comment(s): Colonoscopy with benign polypectomies Past Anesthesia/Blood Transfusion Reactions: No Reported Reaction Past Psychological History: Anxiety Smoking Status: Current every day smoker Past Alcohol Use History: None Reported Past Drug Use History: Marijuana - Past Family History Father Family Medical History: Diabetes Mellitus Additional Family Medical History / Comment(s): Father had gallbladder disease. He is 77yrs old. Mother Family Medical History: Hyperlipidemia CBC & Chem 7: 01/13/19 09:02 01/13/19 09:02 Labs: Abnormal Lab Results - Last 24 Hours (Table) 01/12/19 01/12/19 01/12/19 Range/Units 07:37 17:19 20:00 WBC (3.8-10.6) k/uL RBC (4.30-5.90) m/uL Hgb (13.0-17.5) gm/dL Hct (39.0-53.0) % MCHC (31.0-37.0) g/dL RDW (11.5-15.5) % Neutrophils # (1.3-7.7) k/uL Sodium (137-145) mmol/L BUN (9-20) mg/dL Creatinine (0.66-1.25) mg/dL Glucose (74-99) mg/dL POC Glucose (mg/dL) 266 H 262 H (75-99) mg/dL Calcium (8.4-10.2) mg/dL Iron 32 L (65-175) ug/dL Iron Saturation 13.33 L (15.00-50.00) Ferritin 1336.3 H (22.0-322.0) ng/mL AST (17-59) U/L ALT (21-72) U/L Alkaline Phosphatase (38-126) U/L Total Protein (6.3-8.2) g/dL Albumin (3.5-5.0) g/dL 01/13/19 01/13/19 01/13/19 Range/Units 07:24 09:02 09:02 WBC 20.3 H (3.8-10.6) k/uL RBC 2.88 L (4.30-5.90) m/uL Hgb 8.3 L (13.0-17.5) gm/dL Hct 27.0 L (39.0-53.0) % MCHC 30.9 L (31.0-37.0) g/dL RDW 17.6 H (11.5-15.5) % Neutrophils # 16.2 H (1.3-7.7) k/uL Sodium 131 L (137-145) mmol/L BUN 54 H (9-20) mg/dL Creatinine 1.27 H (0.66-1.25) mg/dL Glucose 190 H (74-99) mg/dL POC Glucose (mg/dL) 182 H (75-99) mg/dL Calcium 7.8 L (8.4-10.2) mg/dL Iron (65-175) ug/dL Iron Saturation (15.00-50.00) Ferritin (22.0-322.0) ng/mL AST 846 H (17-59) U/L ALT 1761 H (21-72) U/L Alkaline Phosphatase 441 H (38-126) U/L Total Protein 5.2 L (6.3-8.2) g/dL Albumin 2.7 L (3.5-5.0) g/dL 01/13/19 Range/Units 12:02 WBC (3.8-10.6) k/uL RBC (4.30-5.90) m/uL Hgb (13.0-17.5) gm/dL Hct (39.0-53.0) % MCHC (31.0-37.0) g/dL RDW (11.5-15.5) % Neutrophils # (1.3-7.7) k/uL Sodium (137-145) mmol/L BUN (9-20) mg/dL Creatinine (0.66-1.25) mg/dL Glucose (74-99) mg/dL POC Glucose (mg/dL) 227 H (75-99) mg/dL Calcium (8.4-10.2) mg/dL Iron (65-175) ug/dL Iron Saturation (15.00-50.00) Ferritin (22.0-322.0) ng/mL AST (17-59) U/L ALT (21-72) U/L Alkaline Phosphatase (38-126) U/L Total Protein (6.3-8.2) g/dL Albumin (3.5-5.0) g/dL Mental Status Examination - this is a 58-year-old male who impulsively started cutting on his wrist Friday throughout Friday with the i ntent of killing himself. He was not for the intervention of his parents he would eventually have . he goes to work in the morning and comes home every day and does nothing when he gets home. He owns TV but no abnormal just watches movies. He is intolerant of the world.today he recounted his entire history going back to [place] when he worked in the [employer] and spent 17 months at the [facility] and believes that he has posttraumatic stress disorder. He does like taking Xanax and described him in detail that and PTSD at axis been known to make people worsening is agreeable to try other medications. He's had ups and downs in his mood for years and has tried to explain that to other physicians without success. He has periods of highs where he then crashes and terrible depression. He's had 2 marriages in his lifetime. He doesn't like to go to [facility] groups and spent quite a lot of time discussing within what he's posted again from groups and how that he needs to stop isolating himself. He states he has racing thoughts all night long and cannot sleep because of thoughts keep him up all night without getting any sleep. He states that doctors have tried to put him to sleep but is not been able to get any sleep with any other medication that does not like the side effects.he wants to get help note to return to work because a has no other benefits and even at $300 a week he enjoys his life as long as she is not severely depressed with racing thoughts. General Appearance: [ casual, appears older than stated age Speech/Language: [spontaneous, rapid, expressive, loud Attitude/Behavior: [cooperative Mood: [ depressed,anxious, fearful, hopelessness Affect: [full range, lively, denies Orientation: [time, person, place situation] Thought Content: [wnl, delusions, obsessions, phobias, other] Risk Factors: [He is currently suicidal (ideations, plan) Perception: [wnl, denies hallucinations (auditory, visual, tactile), other] Thought Processes: [ concrete, circumstantial, tangential, other] Concentration/Attention Span: [wnl] [Per observation and interview with the patient] Recent Memory: [wnl 3 out of 3 in 3 minutes] Remote Memory: [wnl] [past events, as related history] Intelligence:average] [based on history, based on vocabulary, syntax, grammar, and content] Judgement: [poor] [per patient's behavior/history of present illness] Insight: [poor] [understanding severity of illness/history of present illness] Psychiatric impression: bipolar affective depressedsevere with suicidal attempt; PTSD? Patient Strengths - Personal Skills: [x] Achievements: [x] Steady employment/financial stability: [He wants to return to work] Housing stability: [x] Able to vocalize needs: [x] Values and traditions: [x] Motivation, determination, readiness for change: [x] Patient Limitations: [medication, non-compliance, lack of social supports, he tends to isolate] Initial Plan of Care: [he was admitted on a formal voluntary admission to medical floor where he tried to cut his wrists severely and agreed to come in to treatment. He'll be evaluated by medicine, psychiatry, social work, nursing staff and occupational therapy to be integrated harding milieu therapeutic environment. He is placed on 15 minute checks for safety and usual protocol for the mental health unit. After long discussion with the patient discussed discussing change in medications which would include discontinuing his Zoloft since it's not been very useful and due to his recent suicide attempt. He describes a history of bipolar affective disorder of the depressed type. He als o has PTSD symptoms and those are best treated with using clonidine and therefore we'll decrease his metoprolol to 25 mg by mouth twice a day and add clonidine 0.1 mg by mouth twice a day for his posttraumatic stress disorder not for his blood pressure but to allow that he does not have any side effects from too many antihypertensives will decrease the metoprolol. He will be monitored closely for his blood pressure and blood sugars. He would benefit from a consult Nutritiondietary is how to cook for himself as being a man alone at age 58. He likes eating hamburgers and hot dogs at home] Estimated Length of Stay: [5-7 days] Initial Discharge Plan: [home, [facility], referred to therapist, partial hospital, intensive outpatient, residential placement, other] Prognosis: [good] Justification for Inpatient Hospitalization - [agitation, anxiety, depression resulting in significant loss of functioning.] [Dangerous to self with need for controlled environment.] [Emotional or behavioral conditions and complications requiring 24 hour medical and nursing care.] [Need for special drug therapy, or other therapeutic program requiring continuous hospitalization.] [Failure of social or occupational functioning.] [Inability to meet basic life and health needs.] (1) Bipolar 1 disorder, depressed Current Visit: Yes Status: Acute Priority: High Code(s): F31.9 - BIPOLAR DISORDER, UNSPECIFIED SNOMED Code(s): 91416798 Time with Patient: Greater than 30
[2019-01-14 17:32] LABS: Glucose,Whole Blood 161 mg/dL (75-99)
[2019-01-14 20:04] LABS: Glucose,Whole Blood 174 mg/dL (75-99)
[2019-01-14] MEDS: INSULIN DETEMIR (LEVEMIR) 100 UNIT/ML SYR SQ SCH (20:27)
[2019-01-14] MEDS ORDERED: SERTRALINE 25 MG TAB PO SCH (21:00)
[2019-01-14] MEDS ORDERED: lamoTRIgine 25 MG TAB PO SCH (21:00)
[2019-01-14] MEDS ORDERED: PALIPERIDONE 3 MG TAB.ER.24 PO SCH (21:00)
[2019-01-14] MEDS: cloNIDine HCL 0.1 MG TAB PO SCH (21:15)
[2019-01-14] MEDS: ATORVASTATIN 80 MG TAB PO SCH (21:15)
[2019-01-14] MEDS: METOPROLOL TARTRATE 25 MG TAB PO SCH (21:15)
--- NOTE | 2019-01-14 21:35 | P.MDCNMH ---
History of Present Illness H&P Date: 01/14/19 Chief Complaint: Depression with suicide attempt. Patient is a 58-year-old male with a known history of hypertension, hyperlipidemia, diabetes type 2 insulin-dependent, anxiety/depression was initially admitted to the hospital after suicide attempt with the knife and laceration to the left forearm. Lacerated wound on the forearm was repaired. Patient was also found have peripheral vascular disease and gangrene of the left great toe, currently status post amputation. Currently antibodies in the form of Augmentin as per ID recommendations. Patient was initially transferred to inpatient psychiatric unit for the treatment of depression. Currently patient denied any complaints of chest pain or shortness of breath. No nausea vomiting or abdominal pain. Leukocytosis is improving. Left foot pain is improved as well. No fever no chills. No nausea vomiting or abdominal pain. Review of Systems Constitutional: Patient denies any fever or chills . No generalized weakness or weight loss. Abdomen: Patient denied nausea vomiting and diarrhea and abdominal pain. Cardiovascular: Patient denies any chest pain or short of breath no palpitations. Respiratory: patient denied any cough is from production. No shortness of breath Neurologic: Patient denied any numbness or tingling headache. Musculoskeletal: Patient denies any complaints of joint swelling or deformity. Skin: Negative Psychiatric: Anxious Endocrine: No heat or cold intolerance. No recent weight gain. Genitourinary: No dysuria or hematuria. 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 History of Any Multi-Drug Resistant Organisms: None Reported Past Surgical History: Adenoidectomy, Tonsillectomy Additional Past Surgical History / Comment(s): Colonoscopy with benign polypectomies Past Anesthesia/Blood Transfusion Reactions: No Reported Reaction Past Psychological History: Anxiety Additional Psychological History / Comment(s): Pt lives alone. He is independent. He was in the and is stationed in [place] as well as in [place], he is considerably too young to be involved in the [place] conflict. No illnesses while he was in . 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 stopped smoking about a year ago. Denies significant alcohol or recreational drug use. His parents are highly involved. No animal exposures. No recent travel. Denied any sexual partners at this time. Smoking Status: Former smoker Past Alcohol Use History: None Reported Additional Past Alcohol Use History / Comment(s): SMOKING: QUIT 2018 Past Drug Use History: Marijuana Additional Drug Use History / Comment(s): Pt states he quit smoking marijuana and that he has not smoked marijuana in 4 months. - Past Family History Father Family Medical History: Diabetes Mellitus Additional Family Medical History / Comment(s): Father had gallbladder disease. He is 77yrs old. Mother Family Medical History: Hyperlipidemia Medications and Allergies Home Medications Medication Instructions Recorded Confirmed Type Atorvastatin [Lipitor] 80 mg PO HS 08/15/16 01/13/19 History Alogliptin Benzoate [Alogliptin] 25 mg PO DAILY 01/05/19 01/13/19 History Sertraline [Zoloft] 50 mg PO DAILY 01/05/19 01/13/19 History Amoxicillin/Potassium Clav 1 tab PO Q12HR #20 tab 01/09/19 01/13/19 Rx [Augmentin 875-125 Tablet] INSULIN ASPART (NovoLOG) [NovoLOG 14 unit SQ AC-SUPPER vial 01/09/19 01/13/19 Rx (formulary)] Insulin Detemir (Levemir) [Levemir] 45 unit SQ HS syr 01/09/19 01/13/19 Rx Metoprolol Tartrate [Lopressor] 50 mg PO BID #10 tab 01/09/19 01/13/19 Rx traMADol HCL [Ultram] 50 mg PO Q6HR PRN 3 Days #12 tab 01/09/19 01/13/19 Rx Allergies Allergy/AdvReac Type Severity Reaction Status Date / Time Tetanus Vaccines and Toxoid Allergy Rash/Hives Verified 01/13/19 18:33 Physical Exam Vitals: Vital Signs Temp Pulse Pulse Resp BP BP 01/14/19 06:31 98.5 F 59 L 16 106/51 01/13/19 17:01 97.0 F L 63 20 115/76 GENERAL: The patient is alert and oriented x3, not in any acute distress. Well developed, well nourished. Patient appears to be little bit more depressed today HEENT: Pupils are round and equally reacting to light. EOMI. No scleral icterus. No conjunctival pallor. Normocephalic, atraumatic. No pharyngeal erythema. No thyromegaly. CARDIOVASCULAR: S1 and S2 present. No murmurs, rubs, or gallops. PULMONARY: Chest is clear to auscultation, no wheezing or crackles. ABDOMEN: Soft, nontender, nondistended, normoactive bowel sounds. No palpable organomegaly. MUSCULOSKELETAL: No joint swelling or deformity. EXTREMITIES: No cyanosis, clubbing, or pedal edema. Amputation of the left great toe and the laceration in the left wrist was repaired NEUROLOGICAL: Gross neurological examination did not reveal any focal deficits. Cranial Nerve Examination - Cranial Nerves Cranial Nerve I- Olfactory: Intact Cranial Nerve II- Optic: Intact Cranial Nerve III- Oculomotor: Intact Cranial Nerve IV- Trochlear: Intact Cranial Nerve V- Trigeminal: Intact Cranial Nerve - Abducens: Intact Cranial Nerve VII- Facial: Intact Cranial Nerve VIII- Auditory: Intact Cranial Nerve IX- Glossopharyngeal: Intact Cranial Nerve X- Vagus: Intact Cranial Nerve XI- Accessory: Intact Cranial Nerve XII- Hypoglossal: Intact Results Labs: Abnormal Lab Results - Last 24 Hours (Table) 01/13/19 01/13/19 01/14/19 Range/Units 17:51 20:36 06:55 POC Glucose (mg/dL) 230 H 219 H 100 H (75-99) mg/dL 01/14/19 Range/Units 12:41 POC Glucose (mg/dL) 114 H (75-99) mg/dL Assessment and Plan Assessment: - Depression with suicide attempt -Peripheral vascular disease with gangrene of the left great toe mostly dry gangrene clinically since he has elevated white blood cell count which is improving. patient was started on vancomycin and Zosyn. cultures were negative so far, patient is status post amputation of the left great toe. Continue with Augmentin. -acute renal failure: secondary to ATN secondary to infection. improving. -Laceration of the left wrist and suicide attempt: Status post repair -Acute blood loss anemia from surgery: Received 1 unit of blood transfusion. Hemoglobin is fairly stable. -Type 2 diabetes mellitus uncontrolled. 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
[2019-01-15 06:31] LABS: Glucose,Whole Blood 147 mg/dL (75-99)
[2019-01-15] MEDS: METOPROLOL TARTRATE 25 MG TAB PO SCH ×3 (07:59→20:58)
[2019-01-15] MEDS: AMOXIC-POT CLAV 875-125MG 1 EACH TAB PO SCH ×2 (07:59→20:58)
[2019-01-15] MEDS: LINAGLIPTIN 5 MG TABLET PO SCH (07:59)
[2019-01-15] MEDS: cloNIDine HCL 0.1 MG TAB PO SCH ×3 (08:00→20:58)
[2019-01-15] MEDS: INSULIN ASPART (NovoLOG) 100 UNIT/ML VIAL SQ SCH ×5 (08:02→20:55)
[2019-01-15] MEDS: traMADol 50 MG TAB PO PRN (11:04)
[2019-01-15 11:39] LABS: Calcium 7.8 mg/dL (8.4-10.2); Potassium 5.1 mmol/L (3.5-5.1)
[2019-01-15 11:44] LABS: Anisocytosis Slight; HGB 8.5 gm/dL (13.0-17.5); Hypochromasia Marked; MCH 28.5 pg (25.0-35.0); MCHC 29.4 g/dL (31.0-37.0); Macrocytosis Slight; Platelet Count 295 k/uL (150-450); Poikilocytosis Slight; RBC 2.99 m/uL (4.30-5.90); RDW 17.4 % (11.5-15.5); WBC 17.8 k/uL (3.8-10.6)
[2019-01-15] MEDS: ACETAMINOPHEN TAB 325 MG TAB PO PRN (12:12)
[2019-01-15 12:17] LABS: Glucose,Whole Blood 253 mg/dL (75-99)
--- NOTE | 2019-01-15 13:41 | P.PN ---
Subjective Progress Note Date: 01/15/19 Principal diagnosis: Bipolar depressed Interval history: Chart reviewed, discussed with nursing staff, and discussed in team today. He continues to attempt to go to groups is depressed and anxious. He has on 15 minute checks and states that he is not currently suicidal and has contracted with me for safety Objective - Vital Signs Vital signs: Vital Signs Temp 97.8 F 01/15/19 06:11 Pulse 66 01/15/19 06:11 Resp 16 01/15/19 06:11 BP 98/66 01/15/19 06:11 Pulse Ox - Labs CBC & Chem 7: 01/15/19 10:40 01/15/19 10:40 Labs: Abnormal Lab Results - Last 24 Hours (Table) 01/14/19 01/14/19 01/14/19 Range/Units 12:41 17:29 20:01 POC Glucose (mg/dL) 114 H 161 H 174 H (75-99) mg/dL 01/15/19 Range/Units 06:27 POC Glucose (mg/dL) 147 H (75-99) mg/dL Assessment and Plan Assessment: Assessment and Plan Chief Complaint: Patient is 58-year-old male past medical history of depression presents after suicidal ideation and suicidal attempt. History of Present Illness: A 58-year-old male. He states that he's been depressed for the last several days. He feels depressed because he is single and has been single is full life and he only has his family. Patient tried to cut his wrists yesterday. He states that the cut happened at approximately 6 AM yesterday. States that he came today because he doesn't know roused ago. Patient complains of some pain at the site however denies any numbness and paresthesias to the hand. The ROS documented in this emergency department record has been reviewed and confirmed by me. Those systems with pertinent positive or negative responses have been documented in the HPI. All other systems are other negative and/or noncontributory. ED course: 58-year-old is ends after suicidal attempt. Patient's laceration occurred approximate 6 AM yesterday morning. He is outside of the laceration repair with no given that it has been approximately 30 hours. There does not appear to be any significant hemorrhage occurring upon examination. There does not appear to be any arterial bleeding. Patient given updated tetanus shot. Patient has tenderness listed as one of his ALLERGIES however after further discussion this does not appear to be ALLERGIC reaction. Patient's alcohol breath test is negative. Wound was dressed with petroleum gauze, Kerlix roll and Coban. Patient medically cleared for EPS evaluation. pt presents to EC with c/o feeling suicidal. Pt also c/o left wrist laceration, pt states he cut his wrist early Friday morning in an attempt to kill himselfpt presents to ER after cutting his left wrist Friday morning. pt has vertical and horizontal laceration on his wrist that has been cleaned and is currently wr apped. pt's large toe on his left foot is also necrotic. pt reports that he had an ingrown toenail and that, when he "popped it out, the whole nail popped off." pt states that he is in the ER because "I wanted to . That's why I did that. I have nothing to look forward to." pt reports that lack of close friend or girlfriend for 8 years, disappointment with his occupation, fear of disappointing his parents, and an injury on his toe after having already lost one toe caused increased depression resulting in suicide attempt. pt states that, "It wouldn't bleed. It bled a little, but it just wouldn't really bleed. And once I started, I felt like I had to finish." - Related Data Home Medications Medication Instructions Recorded Confirmed Atenolol 25 mg PO QAM 08/15/16 01/05/19 Atorvastatin [Lipitor] 80 mg PO HS 08/15/16 01/05/19 metFORMIN HCL 1,000 mg PO BID 08/15/16 01/05/19 ALPRAZolam [Xanax] 1 mg PO DAILY 06/16/17 01/05/19 Insulin Glargine [Lantus] 35 unit SQ HS 10/17/17 01/05/19 Alogliptin Benzoate [Alogliptin] 25 mg PO DAILY 01/05/19 01/05/19 Insulin Aspart [NovoLOG Flexpen] 3 units SQ DAILY 01/05/19 01/05/19 Sertraline [Zoloft] 50 mg PO DAILY 01/05/19 01/05/19 Allergies Allergy/AdvReac Type Severity Reaction Status Date / Time Tetanus Vaccines and Toxoid Allergy Rash/Hives Verified 01/05/19 11:42 Past Medical History Past Medical History: Diabetes Mellitus, Hyperlipidemia, Hypertension, Neurologic Disorder Additional Past Medical History / Comment(s): NIDDM type II, 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 History of Any Multi-Drug Resistant Organisms: None Reported Past Surgical History: Adenoidectomy, Tonsillectomy Additional Past Surgical History / Comment(s): Colonoscopy with benign polypectomies Past Anesthesia/Blood Transfusion Reactions: No Reported Reaction Past Psychological History: Anxiety Smoking Status: Current every day smoker Past Alcohol Use History: None Reported Past Drug Use History: Marijuana - Past Family History Father Family Medical History: Diabetes Mellitus Additional Family Medical History / Comment(s): Father had gallbladder disease. He is 77yrs old. Mother Family Medical History: Hyperlipidemia CBC & Chem 7: 01/13/19 09:02 01/13/19 09:02 Labs: Abnormal Lab Results - Last 24 Hours (Table) 01/12/19 01/12/19 01/12/19 Range/Units 07:37 17:19 20:00 WBC (3.8-10.6) k/uL RBC (4.30-5.90) m/uL Hgb (13.0-17.5) gm/dL Hct (39.0-53.0) % MCHC (31.0-37.0) g/dL RDW (11.5-15.5) % Neutrophils # (1.3-7.7) k/uL Sodium (137-145) mmol/L BUN (9-20) mg/dL Creatinine (0.66-1.25) mg/dL Glucose (74-99) mg/dL POC Glucose (mg/dL) 266 H 262 H (75-99) mg/dL Calcium (8.4-10.2) mg/dL Iron 32 L (65-175) ug/dL Iron Saturation 13.33 L (15.00-50.00) Ferritin 1336.3 H (22.0-322.0) ng/mL AST (17-59) U/L ALT (21-72) U/L Alkaline Phosphatase (38-126) U/L Total Protein (6.3-8.2) g/dL Albumin (3.5-5.0) g/dL 01/13/19 01/13/1901/13/19 Range/Units 07:24 09:02 09:02 WBC 20.3 H (3.8-10.6) k/uL RBC 2.88 L (4.30-5.90) m/uL Hgb 8.3 L (13.0-17.5) gm/dL Hct 27.0 L (39.0-53.0) % MCHC 30.9 L (31.0-37.0) g/dL RDW 17.6 H (11.5-15.5) % Neutrophils # 16.2 H (1.3-7.7) k/uL Sodium 131 L (137-145) mmol/L BUN 54 H (9-20) mg/dL Creatinine 1.27 H (0.66-1.25) mg/dL Glucose 190 H (74-99) mg/dL POC Glucose (mg/dL) 182 H (75-99) mg/dL Calcium 7.8 L (8.4-10.2) mg/dL Iron (65-175) ug/dL Iron Saturation (15.00-50.00) Ferritin (22.0-322.0) ng/mL AST 846 H (17-59) U/L ALT 1761 H (21-72) U/L Alkaline Phosphatase 441 H (38-126) U/L Total Protein 5.2 L (6.3-8.2) g/dL Albumin 2.7 L (3.5-5.0) g/dL 01/13/19 Range/Units 12:02 WBC (3.8-10.6) k/uL RBC (4.30-5.90) m/uL Hgb (13.0-17.5) gm/dL Hct (39.0-53.0) % MCHC (31.0-37.0) g/dL RDW (11.5-15.5) % Neutrophils # (1.3-7.7) k/uL Sodium (137-145) mmol/L BUN (9-20) mg/dL Creatinine (0.66-1.25) mg/dL Glucose (74-99) mg/dL POC Glucose (mg/dL) 227 H (75-99) mg/dL Calcium (8.4-10.2) mg/dL Iron (65-175) ug/dL Iron Saturation (15.00-50.00) Ferritin (22.0-322.0) ng/mL AST (17-59) U/L ALT (21-72) U/L Alkaline Phosphatase (38-126) U/L Total Protein (6.3-8.2) g/dL Albumin (3.5-5.0) g/dL Mental Status Examination - this is a 58-year-old male who impulsively started cutting on his wrist Friday throughout Friday with the intent of killing himself. He was not for the intervention of his parents he would eventually have . he goes to work in the morning and comes home every day and does nothing when he gets home. He owns TV but no abnormal just watches movies. He is intolerant of the world.today he recounted his entire history going back to [place] when he worked in the [employer] and spent 17 months at the [facility] and believes that he has posttraumatic stress disorder. He does like taking Xanax and described him in detail that and PTSD at axis been known to make people worsening is agreeable to try other medications. He's had ups and downs in his mood for years and has tried to explain that to other physicians without success. He has periods of highs where he then crashes and terrible depression. He's had 2 marriages in his lifetime. He doesn't like to go to [facility] groups and spent quite a lot of time discussing within what he's posted again from groups and how that he needs to stop isolating himself. He states he has racing thoughts all night long and cannot sleep because of thoughts keep him up all night without getting any sleep. He states that doctors have tried to put him to sleep but is not been able to get any sleep with any other medication that does not like the side effects.he wants to get help note to return to work because a has no other benefits and even at $300 a week he enjoys his life as long as she is not severely depressed with racing thoughts. General Appearance: [ casual, appears older than stated age Speech/Language: [spontaneous, rapid, expressive, loud Attitude/Behavior: [cooperative Mood: [ depressed,anxious, fearful, hopelessness Affect: [full range, lively, denies Orientation: [time, person, place situation] Thought Content: [wnl, delusions, obsessions, phobias, other] Risk Factors: [He is currently suicidal (ideations, plan) Perception: [wnl, denies hallucinations (auditory, visual, tactile), other] Thought Processes: [ concrete, circumstantial, tangential, other] Concentration/Attention Span: [wnl] [Per observation and interview with the patient] Recent Memory: [wnl 3 out of 3 in 3 minutes] Remote Memory: [wnl] [past events, as related history] Intelligence:average] [based on history, based on vocabulary, syntax, grammar, and content] Judgement: [poor] [per patient's behavior/history of present illness] Insight: [poor] [understanding severity of illness/history of present illness] Psychiatric impression: bipolar affective depressedsevere with suicidal attempt; PTSD? Patient Strengths - Personal Skills: [x] Achievements: [x] Steady employment/financial stability: [He wants to return to work] Housing stability: [x] Able to vocalize needs: [x] Values and traditions: [x] Motivation, determination, readiness for change: [x] Patient Limitations: [medication, non-compliance, lack of social supports, he tends to isolate] Initial Plan of Care: [he was admitted on a formal voluntary admission to medical floor where he tried to cut his wrists severely and agreed to come in to treatment. He'll be evaluated by medicine, psychiatry, social work, nursing staff and occupational therapy to be integrated harding milieu therapeutic environment. He is placed on 15 minute checks for safety and usual protocol for the mental health unit. After long discussion with the patient discussed di shaneing change in medications which would include discontinuing his Zoloft since it's not been very useful and due to his recent suicide attempt. He describes a history of bipolar affective disorder of the depressed type. He also has PTSD symptoms and those are best treated with using clonidine and therefore we'll decrease his metoprolol to 25 mg by mouth twice a day and add clonidine 0.1 mg by mouth twice a day for his posttraumatic stress disorder not for his blood pressure but to allow that he does not have any side effects from too many antihypertensives will decrease the metoprolol. He will be monitored closely for his blood pressure and blood sugars. He would benefit from a consul t Nutritiondietary is how to cook for himself as being a man alone at age 58. He likes eating hamburgers and hot dogs at home 01/15/2019: Patient interacting well on the unit and taking his medications as outlined above. He feels somewhat anxious today and that may be a discontinuation of the antidepressant. His vital signs are stable today with the change of metoprolol to 25 mg by mouth twice a day and clonidine 0.1 mg 3 times a day for his anxiety posttraumatic stress disorder. We'll continue the titration of Lamictal and Invega as outlined in the Mar. He'll remain on 15 minute checks throughout his stay. We did discuss discharge plans and explained to him I need to get his medications titrated up and would probably be within the next 5 days.] (1) Bipolar 1 disorder, depressed Current Visit: Yes Status: Acute Priority: High Code(s): F31.9 - BIPOLAR DISORDER, UNSPECIFIED SNOMED Code(s): 33839410 Time with Patient: Less than 30
[2019-01-15 14:38] LABS: Eosinophils # (M) 0.18 k/uL (0-0.7); Monocytes # (M) 0.89 k/uL (0-1.0); Neutrophils # (M) 15.13 k/uL (1.3-7.7); Neutrophils % (M) 85 %; Nucleated Red Blood Cells 0 /100 WBC (0-0); Total Cells Counted 100
[2019-01-15 14:40] LABS: Polychromasia Present
[2019-01-15] MEDS: MAG HYDROX/AL HYDROX/SIMETH 30 ML CUP PO PRN (17:10)
[2019-01-15 17:16] LABS: Glucose,Whole Blood 275 mg/dL (75-99)
[2019-01-15 20:28] LABS: Glucose,Whole Blood 267 mg/dL (75-99)
[2019-01-15] MEDS: INSULIN DETEMIR (LEVEMIR) 100 UNIT/ML SYR SQ SCH (20:56)
[2019-01-15] MEDS: lamoTRIgine 25 MG TAB PO SCH (20:58)
[2019-01-15] MEDS: ATORVASTATIN 80 MG TAB PO SCH (20:58)
[2019-01-15] MEDS: PALIPERIDONE 6 MG TAB.ER.24 PO SCH (20:59)
[2019-01-16 06:15] LABS: Glucose,Whole Blood 158 mg/dL (75-99)
[2019-01-16] MEDS: INSULIN ASPART (NovoLOG) 100 UNIT/ML VIAL SQ SCH ×5 (07:44→21:29)
[2019-01-16] MEDS: AMOXIC-POT CLAV 875-125MG 1 EACH TAB PO SCH ×2 (08:26→20:29)
[2019-01-16] MEDS: LINAGLIPTIN 5 MG TABLET PO SCH (08:27)
[2019-01-16] MEDS: cloNIDine HCL 0.1 MG TAB PO SCH ×2 (08:29→20:30)
[2019-01-16] MEDS: METOPROLOL TARTRATE 25 MG TAB PO SCH ×2 (08:29→20:30)
[2019-01-16 12:59] LABS: Glucose,Whole Blood 220 mg/dL (75-99)
[2019-01-16 17:12] LABS: Glucose,Whole Blood 262 mg/dL (75-99)
[2019-01-16] MEDS: traMADol 50 MG TAB PO PRN (17:18)
[2019-01-16] MEDS: MAG HYDROX/AL HYDROX/SIMETH 30 ML CUP PO PRN ×2 (17:42→22:06)
--- NOTE | 2019-01-16 17:57 | P.PN ---
Subjective Progress Note Date: 01/16/19 Principal diagnosis: Bipolar Disorder Found him in his room. Very much in pain due to sutures and wound. He reports hurting in ampuatted toe. He has been depressed for long time and it was gradually getting worse. Behaviorally well controlled. Did sleep okay last night. Has suicidal Ideaton MSE: Alert, awake, oriented in all spheres. Poor eye contact. Mood anxious with flat affect. Has suicidal ideation. Has psychoses. Insight and judgment limited A/P : Bipolar Disorder Will continue to adjust medications accordingly Objective - Vital Signs Vital signs: Vital Signs Temp 98.3 F 01/16/19 06:11 Pulse 75 01/16/19 06:11 Resp 16 01/16/19 06:11 BP 100/51 01/16/19 11:59 Pulse Ox - Labs CBC & Chem 7: 01/15/19 10:40 01/15/19 10:40 Labs: Abnormal Lab Results - Last 24 Hours (Table) 01/15/19 01/16/19 01/16/19 Range/Units 20:24 06:04 12:46 POC Glucose (mg/dL) 267 H 158 H 220 H (75-99) mg/dL 01/16/19 Range/Units 17:07 POC Glucose (mg/dL) 262 H (75-99) mg/dL
--- NOTE | 2019-01-16 18:39 | P.PN ---
Subjective Patient is a 58-year-old male with a known history of hypertension, hyperlipidemia, diabetes type 2 insulin-dependent, anxiety/depression was initia lly admitted to the hospital after suicide attempt with the knife and laceration to the left forearm. Lacerated wound on the forearm was repaired. Patient was also found have peripheral vascular disease and gangrene of the left great toe, currently status post amputation. Currently antibodies in the form of Augmentin as per ID recommendations. Patient was initially transferred to inpatient [facility] for the treatment of depression. Currently patient denied any complaints of chest pain or shortness of breath. No nausea vomiting or abdominal pain. Leukocytosis is improving. Left foot pain is improved as well. No fever no chills. No nausea vomiting or abdominal pain. 01/16/2019 The psych primary team asked for follow-up for concerns by the staff of the wound on his left wrist and also there was concern is that his right toe is turning blue and cold, when he went to see the patient he was lying in bed comfortable not in distress. Not complaining of from any chest pain or dyspnea. He is left wrist wound looks intact, closing sutures are in a Place, there was some mild purulent discharge around one of the stitches, which is a cleaned with normal saline and bacitracin ointment placed. And on examination of his feeds. He is status post amputation of the left. All compared to the right toe that looks warm and pink color which is his usual color compared to the other toes. There is no coldness or change in temperature. There is no change in color. Recommended to continue with the care of the patient and close follow-up. Discussed with the staff Objective - Vital Signs Vital signs: Vital Signs Temp 98.3 F 01/16/19 06:11 Pulse 75 01/16/19 06:11 Resp 16 01/16/19 06:11 BP 100/51 01/16/19 11:59 Pulse Ox - Exam GENERAL: The patient is alert and oriented x3, not in any acute distress. Well developed, well nourished. HEENT: Pupils are round and equally reacting to light. EOMI. No scleral icterus. No conjunctival pallor. Normocephalic, atraumatic. No pharyngeal erythema. No thyromegaly. CARDIOVASCULAR: S1 and S2 present. No murmurs, rubs, or gallops. PULMONARY: Chest is clear to auscultation, no wheezing or crackles. ABDOMEN: Soft, nontender, nondistended, normoactive bowel sounds. No palpable organomegaly. MUSCULOSKELETAL: No joint swelling or deformity. EXTREMITIES: No cyanosis, clubbing, or pedal edema. NEUROLOGICAL: Gross neurological examination did not reveal any focal deficits. SKIN: No rashes. - Cranial Nerves Cranial Nerve I- Olfactory: Intact Cranial Nerve II- Optic: Intact Cranial Nerve III- Oculomotor: Intact Cranial Nerve IV- Trochlear: Intact Cranial Nerve V- Trigeminal: Intact Cranial Nerve - Abducens: Intact Cranial Nerve VII- Facial: Intact Cranial Nerve VIII- Auditory: Intact Cranial Nerve IX- Glossopharyngeal: Intact Cranial Nerve X- Vagus: Intact Cranial Nerve XI- Accessory: Intact Cranial Nerve XII- Hypoglossal: Intact - Labs CBC & Chem 7: 01/15/19 10:40 01/15/19 10:40 Labs: Abnormal Lab Results - Last 24 Hours (Table) 01/15/19 01/16/19 01/16/19 Range/Units 20:24 06:04 12:46 POC Glucose (mg/dL) 267 H 158 H 220 H (75-99) mg/dL 01/16/19 Range/Units 17:07 POC Glucose (mg/dL) 262 H (75-99) mg/dL Assessment and Plan Assessment: - Depression with suicide attempt, and a primary team -Peripheral vascular disease with gangrene of the left great toe mostly dry gangrene clinically since he has elevated white blood cell count which is improving. patient was started on vancomycin and Zosyn. cultures were negative so far, patient is status post amputation of the left great toe. Continue with Augmentin. -acute renal failure: secondary to ATN secondary to infection. improving. -Laceration of the left wrist and suicide attempt: Status post repair. Wound is healing -Acute blood loss anemia from surgery: Received 1 unit of blood transfusion. Hemoglobin is fairly stable. -Type 2 diabetes mellitus uncontrolled. 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
[2019-01-16 20:29] LABS: Glucose,Whole Blood 255 mg/dL (75-99)
[2019-01-16] MEDS: lamoTRIgine 25 MG TAB PO SCH (20:29)
[2019-01-16] MEDS: PALIPERIDONE 6 MG TAB.ER.24 PO SCH (20:29)
[2019-01-16] MEDS: ATORVASTATIN 80 MG TAB PO SCH (20:29)
[2019-01-16] MEDS: ACETAMINOPHEN TAB 325 MG TAB PO PRN (20:30)
[2019-01-16] MEDS: BACITRACIN 500 UNIT/GM OINT 28.4 GM TUBE TOPICAL SCH (21:29)
[2019-01-16] MEDS: INSULIN DETEMIR (LEVEMIR) 100 UNIT/ML SYR SQ SCH (21:29)
[2019-01-17 06:52] LABS: Glucose,Whole Blood 196 mg/dL (75-99)
[2019-01-17] MEDS: INSULIN ASPART (NovoLOG) 100 UNIT/ML VIAL SQ SCH ×5 (08:17→21:04)
[2019-01-17] MEDS: AMOXIC-POT CLAV 875-125MG 1 EACH TAB PO SCH ×2 (08:47→20:24)
[2019-01-17] MEDS: cloNIDine HCL 0.1 MG TAB PO SCH ×2 (08:47→20:24)
[2019-01-17] MEDS: LINAGLIPTIN 5 MG TABLET PO SCH (08:47)
[2019-01-17] MEDS: METOPROLOL TARTRATE 25 MG TAB PO SCH ×2 (08:47→20:24)
[2019-01-17 12:46] LABS: Glucose,Whole Blood 264 mg/dL (75-99)
[2019-01-17] MEDS: traMADol 50 MG TAB PO PRN ×2 (12:46→20:27)
[2019-01-17] MEDS: BACITRACIN 500 UNIT/GM OINT 28.4 GM TUBE TOPICAL SCH ×2 (13:45→20:25)
--- NOTE | 2019-01-17 14:20 | P.PN ---
Subjective Progress Note Date: 01/17/19 Principal diagnosis: Bipolar Disorder Found him in his room. Now started feeling lot better. His wound is healing. His pain is in control. Behaviorally well controlled. Did sleep okay last night. Has no suicidal Ideaton MSE: Alert, awake, oriented in all spheres. Poor eye contact. Mood anxious with flat affect. Has suicidal ideation. Has psychoses. Insight and judgment limited A/P : Bipolar Disorder Will continue to adjust medications accordingly Objective - Vital Signs Vital signs: Vital Signs Temp 98.5 F 01/17/19 07:00 Pulse 74 01/17/19 07:00 Resp 16 01/17/19 07:00 BP 110/57 01/17/19 07:00 Pulse Ox Intake & Output 01/16/19 01/17/19 01/17/19 18:59 06:59 18:59 Weight 122 kg - Labs CBC & Chem 7: 01/15/19 10:40 01/15/19 10:40 Labs: Abnormal Lab Results - Last 24 Hours (Table) 01/16/19 01/16/19 01/17/19 Range/Units 17:07 20:25 06:30 POC Glucose (mg/dL) 262 H 255 H 196 H (75-99) mg/dL 01/17/19 Range/Units 12:41 POC Glucose (mg/dL) 264 H (75-99) mg/dL
[2019-01-17 17:05] LABS: Glucose,Whole Blood 303 mg/dL (75-99)
[2019-01-17] MEDS: PALIPERIDONE 6 MG TAB.ER.24 PO SCH (20:24)
[2019-01-17 20:31] LABS: Glucose,Whole Blood 340 mg/dL (75-99)
[2019-01-17] MEDS ORDERED: INSULIN DETEMIR (LEVEMIR) 100 UNIT/ML SYR SQ SCH ×2 (21:00)
[2019-01-17] MEDS ORDERED: lamoTRIgine 25 MG TAB PO SCH (21:00)
[2019-01-17] MEDS ORDERED: INSULIN ASPART (NovoLOG) 100 UNIT/ML VIAL SQ ONE ×2 (21:02→23:53)
[2019-01-17] MEDS: ATORVASTATIN 80 MG TAB PO SCH (21:14)
[2019-01-17 23:27] LABS: Glucose,Whole Blood 278 mg/dL (75-99)
[2019-01-18] MEDS: ACETAMINOPHEN TAB 325 MG TAB PO PRN (02:39)
[2019-01-18 06:20] LABS: Glucose,Whole Blood 65 mg/dL (75-99)
[2019-01-18 06:41] LABS: Glucose,Whole Blood 78 mg/dL (75-99)
[2019-01-18 06:53] VITALS: RESP 20
[2019-01-18] MEDS: LINAGLIPTIN 5 MG TABLET PO SCH (07:52)
[2019-01-18] MEDS: INSULIN ASPART (NovoLOG) 100 UNIT/ML VIAL SQ SCH ×5 (07:52→21:00)
[2019-01-18] MEDS: AMOXIC-POT CLAV 875-125MG 1 EACH TAB PO SCH ×2 (07:52→20:55)
[2019-01-18] MEDS: METOPROLOL TARTRATE 25 MG TAB PO SCH ×2 (07:52→20:55)
[2019-01-18] MEDS: cloNIDine HCL 0.1 MG TAB PO SCH ×2 (07:52→20:55)
[2019-01-18] MEDS: BACITRACIN 500 UNIT/GM OINT 28.4 GM TUBE TOPICAL SCH ×2 (07:54→21:37)
[2019-01-18] MEDS: traMADol 50 MG TAB PO PRN ×2 (10:30→16:21)
[2019-01-18 10:38] LABS: Glucose,Whole Blood 213 mg/dL (75-99)
[2019-01-18 12:29] LABS: Glucose,Whole Blood 263 mg/dL (75-99)
--- NOTE | 2019-01-18 14:18 | P.PN ---
Subjective Progress Note Date: 01/18/19 Principal diagnosis: Bipolar depressed Interval history: Chart reviewed, discussed with nursing staff, and discussed in team today. He continues to attempt to go to groups is depressed and anxious. He has on 15 minute checks and states that he is not currently suicidal and has contracted with me for safety 01/18/2019: Chart reviewed, discussed with nursing staff regarding discharge and disposition for tomorrow discharge. Discussed in team this morning regarding his overall progress. Patient interviewed is more calm and denies any suicidal or homicidal ideation. He talked about his discharge which would be tomorrow after ingesting one of his medicines tonight and he'll be living with his mother and father. This increases socialization I will be so isolated and should help prevent him from having any recurrence of loneliness and thoughts of suicide. He is going to groups and has appropriate hygiene. He discussed today that he had sores on his right foot and that his testicles feels large. This can be followed up in outpatient basis but I told him it's not something we can do with on the unit at this time. Objective - Vital Signs Vital signs: Vital Signs Temp 97.7 F 01/18/19 06:52 Pulse 73 01/18/19 07:50 Resp 20 01/18/19 06:52 BP 117/69 01/18/19 07:50 Pulse Ox 97 01/18/19 06:52 Intake & Output 01/17/19 01/18/19 01/18/19 18:59 06:59 18:59 Weight 122 kg - Labs CBC & Chem 7: 01/15/19 10:40 01/15/19 10:40 Labs: Abnormal Lab Results - Last 24 Hours (Table) 01/17/19 01/17/19 01/17/19 Range/Units 17:03 20:21 23:23 POC Glucose (mg/dL) 303 H 340 H 278 H (75-99) mg/dL 01/18/19 01/18/19 01/18/19 Range/Units 06:19 10:34 12:28 POC Glucose (mg/dL) 65 L 213 H 263 H (75-99) mg/dL Assessment and Plan Assessment: Assessment and Plan Chief Complaint: Patient is 58-year-old male past medical history of depression presents after suicidal ideation and suicidal attempt. History of Present Illness: A 58-year-old male. He states that he's been depressed for the last several days. He feels depressed because he is single and has been single is full life and he only has his family. Patient tried to cut his wrists yesterday. He states that the cut happened at approximately 6 AM yesterday. States that he came today because he doesn't know roused ago. Patient complains of some pain at the site however denies any numbness and paresthesias to the hand. The ROS documented in this emergency department record has been reviewed and confirmed by me. Those systems with pertinent positive or negative responses have been documented in the HPI. All other systems are other negative and/or noncontributory. ED course: 58-year-old is ends after suicidal attempt. Patient's laceration occurred approximate 6 AM yesterday morning. He is outside of the laceration repair with no given that it has been approximately 30 hours. There does not appear to be any significant hemorrhage occurring upon examination. There does not appear to be any arterial bleeding. Patient given updated tetanus shot. Patient has tenderness listed as one of his ALLERGIES however after further discussion this does not appear to be ALLERGIC reaction. Patient's alcohol breath test is negative. Wound was dressed with petroleum gauze, Kerlix roll and Coban. Patient medically cleared for EPS evaluation. pt presents to EC with c/o feeling suicidal. Pt also c/o left wrist laceration, pt states he cut his wrist early Friday morning in an attempt to kill himselfpt presents to ER after cutting his left wrist Friday morning. pt has vertical and horizontal laceration on his wrist that has been cleaned and is currently wrapped. pt's large toe on his left foot is also necrotic. pt reports that he had an ingrown toenail and that, when he "popped it out, the whole nail popped off." pt states that he is in the ER because "I wanted to . That's why I did that. I have nothing to look forward to." pt reports that lack of close friend or girlfriend for 8 years, disappointment with his occupation, fear of disappointing his parents, and an injury on his toe after having already lost one toe caused increased depression resulting in suicide attempt. pt states that, "It wouldn't bleed. It bled a little, but it just wouldn't really bleed. And once I started, I felt like I had to finish." Mental Status Examination - this is a 58-year-old male who impulsively started cutting on his wrist Friday throughout Friday with the intent of killing himself. He was not for the intervention of his parents he would eventually have . he goes to work in the morning and comes home every day and does nothing when he gets home. He owns TV but no abnormal just watches movies. He is intolerant of the world.today he recounted his entire history going back to [place] when he worked in the [employer] and spent 17 months at the [facility] and believes that he has posttraumatic stress disorder. He does like taking Xanax and described him in detail that and PTSD at axis been known to make people worsening is agreeable to try other medications. He's had ups and downs in his mood for years and has tried to explain that to other physicians without success. He has periods of highs where he then crashes and terrible depression. He's had 2 marriages in his lifetime. He doesn't like to go to [facility] groups and spent quite a lot of time discussing within what he's posted again from groups a nd how that he needs to stop isolating himself. He states he has racing thoughts all night long and cannot sleep because of thoughts keep him up all night without getting any sleep. He states that doctors have tried to put him to sleep but is not been able to get any sleep with any other medication that does not like the side effects.he wants to get help note to return to work because a has no other benefits and even at $300 a week he enjoys his life as long as she is not severely depressed with racing thoughts. General Appearance: [ casual, appears older than stated age Speech/Language: [spontaneous, rapid, expressive, loud Attitude/Behavior: [cooperative Mood: [ depressed,anxious, fearful, hopelessness Affect: [full range, lively, denies Orientation: [time, person, place situation] Thought Content: [wnl, delusions, obsessions, phobias, other] Risk Factors: [He is currently suicidal (ideations, plan) Perception: [wnl, denies hallucinations (auditory, visual, tactile), other] Thought Processes: [ concrete, circumstantial, tangential, other] Concentration/Attention Span: [wnl] [Per observation and interview with the patient] Recent Memory: [wnl 3 out of 3 in 3 minutes] Remote Memory: [wnl] [past events, as related history] Intelligence:average] [based on history, based on vocabulary, syntax, grammar, and content] Judgement: [poor] [per patient's behavior/history of present illness] Insight: [poor] [understanding severity of illness/history of present illness] Psychiatric impression: bipolar affective depressedsevere with suicidal attempt; PTSD? Initial Plan of Care: [he was admitted on a formal voluntary admission to medical floor where he tried to cut his wrists severely and agreed to come in to treatment. He'll be evaluated by medicine, psychiatry, social work, nursing staff and occupational therapy to be integrated harding milieu therapeutic environment. He is placed on 15 minute checks for safety and usual protocol for the mental health unit. After long discussion with the patient discussed discussing change in medications which would include discontinuing his Zoloft since it's not been very useful and due to his recent suicide attempt. He describes a history of bipolar affective disorder of the depressed type. He als o has PTSD symptoms and those are best treated with using clonidine and therefore we'll decrease his metoprolol to 25 mg by mouth twice a day and add clonidine 0.1 mg by mouth twice a day for his posttraumatic stress disorder not for his blood pressure but to allow that he does not have any side effects from too many antihypertensives will decrease the metoprolol. He will be monitored closely for his blood pressure and blood sugars. He would benefit from a consult Nutritiondietary is how to cook for himself as being a man alone at age 58. He likes eating hamburgers and hot dogs at home 01/15/2019: Patient interacting well on the unit and taking his medications as outlined above. He feels somewhat anxious today and that may be a discontinuation of the antidepressant. His vital signs are stable today with the change of metoprolol to 25 mg by mouth twice a day and clonidine 0.1 mg 3 times a day for his anxiety posttraumatic stress disorder. We'll continue the titration of Lamictal and Invega as outlined in the Mar. He'll remain on 15 minute checks throughout his stay. We did discuss discharge plans and explained to him I need to get his medications titrated up and would probably be within the next 5 days. 01/18/2019: Patient remains on 15 minute checks l[place] on the unit. He is less anxious but states he does like his Klonopin. Discussed with him this is not appropriate treatment and he needs to remain on his Lamictal and Invega. His Lamictal be raised to 100 mg tonight and he remains on 60 mg of Invega. He seems to be stabilizing and looking forward to going home tomorrow. We are arranging for his aftercare today for discharge tomorrow.] (1) Bipolar 1 disorder, depressed Current Visit: Yes Status: Acute Priority: High Code(s): F31.9 - BIPOLAR DISORDER, UNSPECIFIED SNOMED Code(s): 05669336 Time with Patient: Less than 30
[2019-01-18 17:50] LABS: Glucose,Whole Blood 255 mg/dL (75-99)
[2019-01-18] MEDS ORDERED: INSULIN DETEMIR (LEVEMIR) 100 UNIT/ML SYR SQ STA (19:02)
[2019-01-18 20:08] LABS: Glucose,Whole Blood 348 mg/dL (75-99)
[2019-01-18] MEDS: ATORVASTATIN 80 MG TAB PO SCH (20:55)
[2019-01-18] MEDS: PALIPERIDONE 6 MG TAB.ER.24 PO SCH (20:55)
[2019-01-18] MEDS ORDERED: lamoTRIgine 100 MG TAB PO SCH (21:00)
[2019-01-18] MEDS ORDERED: INSULIN DETEMIR (LEVEMIR) 100 UNIT/ML SYR SQ SCH (21:00)
[2019-01-19] MEDS: MAG HYDROX/AL HYDROX/SIMETH 30 ML CUP PO PRN (01:36)
[2019-01-19] MEDS: traMADol 50 MG TAB PO PRN (01:53)
[2019-01-19 04:34] VITALS: BP 133/78; PULSE 82; TEMP 98.8
[2019-01-19 05:46] LABS: Glucose,Whole Blood 113 mg/dL (75-99)
[2019-01-19] MEDS: AMOXIC-POT CLAV 875-125MG 1 EACH TAB PO SCH (07:54)
[2019-01-19] MEDS: INSULIN ASPART (NovoLOG) 100 UNIT/ML VIAL SQ SCH ×2 (07:54→13:00)
[2019-01-19] MEDS: cloNIDine HCL 0.1 MG TAB PO SCH (07:55)
[2019-01-19] MEDS: LINAGLIPTIN 5 MG TABLET PO SCH (07:55)
[2019-01-19] MEDS: METOPROLOL TARTRATE 25 MG TAB PO SCH (07:56)
[2019-01-19 08:56] LABS: Glucose,Whole Blood 135 mg/dL (75-99)
[2019-01-19] MEDS ORDERED: INSULIN DETEMIR (LEVEMIR) 100 UNIT/ML SYR SQ SCH ×4 (09:00→21:00)
[2019-01-19] MEDS: BACITRACIN 500 UNIT/GM OINT 28.4 GM TUBE TOPICAL SCH (10:00)
[2019-01-19 12:37] LABS: Glucose,Whole Blood 186 mg/dL (75-99)
--- NOTE | 2019-01-19 14:15 | P.DS ---
Providers Date of admission: 01/13/19 16:10 Expected date of discharge: 01/19/19 Attending physician: Josh Aiken DO Consults: 01/13/19 16:30 Consult Physician Routine Consulting Provider: Malissa Corbett Consult Reason/Comments: medical care Do you want consulting provider notified?: Yes Primary care physician: [facility] - Discharge Diagnosis(es) (1) Bipolar 1 disorder, depressed Allergies Allergy/AdvReac Type Severity Reaction Status Date / Time Tetanus Vaccines and Toxoid Allergy Rash/Hives Verified 01/13/19 18:33 Vital Signs Temp 98.5 F 01/14/19 06:31 Pulse 59 L 01/14/19 06:31 Resp 16 01/14/19 06:31 BP 106/51 01/14/19 06:31 Pulse Ox Intake & Output 01/13/19 01/14/19 01/14/19 18:59 06:59 18:59 Weight 122.47 kg Laboratory Last Values POC Glucose (mg/dL) 100 mg/dL (75-99) H 01/14/19 06:55 POC 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 History of Present Illness: A 58-year-old male. He states that he's been depressed for the last several days. He feels depressed because he is single and has been single is full life and he only has his family. Patient tried to cut his wrists yesterday. He states that the cut happened at approximately 6 AM yesterday. States that he came today because he doesn't know roused ago. Patient complains of some pain at the site however denies any numbness and paresthesias to the hand. The ROS documented in this emergency department record has been reviewed and confirmed by me. Those systems with pertinent positive or negative responses have been documented in the HPI. All other systems are other negative and/or noncontributory. ED course: 58-year-old is ends after suicidal attempt. Patient's laceration occurred approximate 6 AM yesterday morning. He is outside of the laceration repair with no given that it has been approximately 30 hours. There does not appear to be any significant hemorrhage occurring upon examination. There does not appear to be any arterial bleeding. Patient given updated tetanus shot. Patient has tenderness listed as one of his ALLERGIES however after further discussion this does not appear to be ALLERGIC reaction. Patient's alcohol breath test is negative. Wound was dressed with petroleum gauze, Kerlix roll and Coban. Patient medically cleared for EPS evaluation. pt presents to EC with c/o feeling suicidal. Pt also c/o left wrist laceration, pt states he cut his wrist early Friday morning in an attempt to kill himselfpt presents to ER after cutting his left wrist Friday morning. pt has vertical and horizontal laceration on his wrist that has been cleaned and is currently wrapped. pt's large toe on his left foot is also necrotic. pt reports that he had an ingrown toenail and that, when he "popped it out, the whole nail popped off." pt states that he is in the ER because "I wanted to . That's why I did that. I have nothing to look forward to." pt reports that lack of close friend or girlfriend for 8 years, disappointment with his occupation, fear of disappointing his parents, and an injury on his toe after having already lost one toe caused increased depression resulting in suicide attempt. pt states that, "It wouldn't bleed. It bled a little, but it just wouldn't really bleed. And once I started, I felt like I had to finish." - Related Data Home Medications Medication Instructions Recorded Confirmed Atenolol 25 mg PO QAM 08/15/16 01/05/19 Atorvastatin [Lipitor] 80 mg PO HS 08/15/16 01/05/19 metFORMIN HCL 1,000 mg PO BID 08/15/16 01/05/19 ALPRAZolam [Xanax] 1 mg PO DAILY 06/16/17 01/05/19 Insulin Glargine [Lantus] 35 unit SQ HS 10/17/17 01/05/19 Alogliptin Benzoate [Alogliptin] 25 mg PO DAILY 01/05/19 01/05/19 Insulin Aspart [NovoLOG Flexpen] 3 units SQ DAILY 01/05/19 01/05/19 Sertraline [Zoloft] 50 mg PO DAILY 01/05/19 01/05/19 Allergies Allergy/AdvReac Type Severity Reaction Status Date / Time Tetanus Vaccines and Toxoid Allergy Rash/Hives Verified 01/05/19 11:42 Past Medical History Past Medical History: Diabetes Mellitus, Hyperlipidemia, Hypertension, Neurologic Disorder Additional Past Medical History / Comment(s): NIDDM type II, 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 History of Any Multi-Drug Resistant Organisms: None Reported Past Surgical History: Adenoidectomy, Tonsillectomy Additional Past Surgical History / Comment(s): Colonoscopy with benign polypectomies Past Anesthesia/Blood Transfusion Reactions: No Reported Reaction Past Psychological History: Anxiety Smoking Status: Current every day smoker Past Alcohol Use History: None Reported Past Drug Use History: Marijuana - Past Family History Father Family Medical History: Diabetes Mellitus Additional Family Medical History / Comment(s): Father had gallbladder disease. He is 77yrs old. Mother Family Medical History: Hyperlipidemia CBC & Chem 7: 01/13/19 09:02 01/13/19 09:02 Labs: Abnormal Lab Results - Last 24 Hours (Table) 01/12/19 01/12/19 01/12/19 Range/Units 07:37 17:19 20:00 WBC (3.8-10.6) k/uL RBC (4.30-5.90) m/uL Hgb (13.0-17.5) gm/dL Hct (39.0-53.0) % MCHC (31.0-37.0) g/dL RDW (11.5-15.5) % Neutrophils # (1.3-7.7) k/uL Sodium (137-145) mmol/L BUN (9-20) mg/dL Creatinine (0.66-1.25) mg/dL Glucose (74-99) mg/dL POC Glucose (mg/dL) 266 H 262 H (75-99) mg/dL Calcium (8.4-10.2) mg/dL Iron 32 L (65-175) ug/dL Iron Saturation 13.33 L (15.00-50.00) Ferritin 1336.3 H (22.0-322.0) ng/mL AST (17-59) U/L ALT (21-72) U/L Alkaline Phosphatase (38-126) U/L Total Protein (6.3-8.2) g/dL Albumin (3.5-5.0) g/dL 01/13/19 01/13/19 01/13/19 Range/Units 07:24 09:02 09:02 WBC 20.3 H (3.8-10.6) k/uL RBC 2.88 L (4.30-5.90) m/uL Hgb 8.3 L (13.0-17.5) gm/dL Hct 27.0 L (39.0-53.0) % MCHC 30.9 L (31.0-37.0) g/dL RDW 17.6 H (11.5-15.5) % Neutrophils # 16.2 H (1.3-7.7) k/uL Sodium 131 L (137-145) mmol/L BUN 54 H (9-20) mg/dL Creatinine 1.27 H (0.66-1.25) mg/dL Glucose 190 H (74-99) mg/dL POC Glucose (mg/dL) 182 H (75-99) mg/dL Calcium 7.8 L (8.4-10.2) mg/dL Iron (65-175) ug/dL Iron Saturation (15.00-50.00) Ferritin (22.0-322.0) ng/mL AST 846 H (17-59) U/L ALT 1761 H (21-72) U/L Alkaline Phosphatase 441 H (38-126) U/L Total Protein 5.2 L (6.3-8.2) g/dL Albumin 2.7 L (3.5-5.0) g/dL 01/13/19 Range/Units 12:02 WBC (3.8-10.6) k/uL RBC (4.30-5.90) m/uL Hgb (13.0-17.5) gm/dL Hct (39.0-53.0) % MCHC (31.0-37.0) g/dL RDW (11.5-15.5) % Neutrophils # (1.3-7.7) k/uL Sodium (137-145) mmol/L BUN (9-20) mg/dL Creatinine (0.66-1.25) mg/dL Glucose (74-99) mg/dL POC Glucose (mg/dL) 227 H (75-99) mg/dL Calcium (8.4-10.2) mg/dL Iron (65-175) ug/dL Iron Saturation (15.00-50.00) Ferritin (22.0-322.0) ng/mL AST (17-59) U/L ALT (21-72) U/L Alkaline Phosphatase (38-126) U/L Total Protein (6.3-8.2) g/dL Albumin (3.5-5.0) g/dL Mental Status Examination - this is a 58-year-old male who impulsively started cutting on his wrist Friday throughout Friday with the intent of killing himself. He was not for the intervention of his parents he would eventually have . he goes to work in the morning and comes home every day and does nothing when he gets home. He owns TV but no abnormal just watches movies. He is intolerant of the world.today he recounted his entire history going back to [place] when he worked in the [employer] and spent 17 months at the [facility] and believes that he has posttraumatic stress disorder. He does like taking Xanax and described him in detail that and PTSD at axis been known to make people worsening is agreeable to try other medications. He's had ups and downs in his mood for years and has tried to explain that to other physicians without success. He has periods of highs where he then crashes and terrible depression. He's had 2 marriages in his lifetime. He doesn't like to go to [facility] groups and spent quite a lot of time discussing within what he's posted again from groups and how that he needs to stop isolating himself. He states he has racing thoughts all night long and cannot sleep because of thoughts keep him up all night without getting any sleep. He states that doctors have tried to put him to sleep but is not been able to get any sleep with any other medication that does not like the side effects.he wants to get help note to return to work because a has no other benefits and even at $300 a week he enjoys his life as long as she is not severely depressed with racing thoughts. General Appearance: [ casual, appears older than stated age Speech/Language: [spontaneous, rapid, expressive, loud Attitude/Behavior: [cooperative Mood: [ depressed,anxious, fearful, hopelessness Affect: [full range, lively, denies Orientation: [time, person, place situation] Thought Content: [wnl, delusions, obsessions, phobias, other] Risk Factors: [He is currently suicidal (ideations, plan) Perception: [wnl, denies hallucinations (auditory, visual, tactile), other] Thought Processes: [ concrete, circumstantial, tangential, other] Concentration/Attention Span: [wnl] [Per observation and interview with the patient] Recent Memory: [wnl 3 out of 3 in 3 minutes] Remote Memory: [wnl] [past events, as related history] Intelligence:average] [based on history, based on vocabulary, syntax, grammar, and content] Judgement: [poor] [per patient's behavior/history of present illness] Insight: [poor] [understanding severity of illness/history of present illness] Psychiatric impression: bipolar affective depressedsevere with suicidal attempt; PTSD? Current Visit: Yes Status: Acute Priority: Low Hospital Course: Plan of Care: [he was admitted on a formal voluntary admission to medical floor where he tried to cut his wrists severely and agreed to come in to treatment. He'll be evaluated by medicine, psychiatry, social work, nursing staff and occupational therapy to be integrated harding milieu therapeutic environment. He is placed on 15 minute checks for safety and usual protocol for the mental health unit. After long discussion with the patient discussed discussing change in medications which would include discontinuing his Zoloft since it's not been very useful and due to his recent suicide attempt. He describes a history of bipolar affective disorder of the depressed type. He also has PTSD symptoms and those are best treated with using clonidine and therefore we'll decrease his metoprolol to 25 mg by mouth twice a day and add clonidine 0.1 mg by mouth twice a day for his posttraumatic stress disorder not for his blood pressure but to allow that he does not have any side effects from too many antihypertensives will decrease the metoprolol. He will be monitored closely for his blood pressure and blood sugars. He would benefit from a consult Nutritiondietary is how to cook for himself as being a man alone at age 58. He likes eating hamburgers and hot dogs at home 01/15/2019: Patient interacting well on the unit and taking his medications as outlined above. He feels somewhat anxious today and that may be a discontinuation of the antidepressant. His vital signs are stable today with the change of metoprolol to 25 mg by mouth twice a day and clonidine 0.1 mg 3 times a day for his anxiety posttraumatic stress disorder. We'll continue the titration of Lamictal and Invega as outlined in the Mar. He'll remain on 15 minute checks throughout his stay. We did discuss discharge plans and explained to him I need to get his medications titrated up and would probably be within the next 5 days. 01/18/2019: Patient remains on 15 minute checks lomb[place] on the unit. He is less anxious but states he does like his Klonopin. Discussed with him this is not appropriate treatment and he needs to remain on his Lamictal and Invega. His Lamictal be raised to 100 mg tonight and he remains on 60 mg of Invega. He seems to be stabilizing and looking forward to going home tomorrow. We are arranging for his aftercare today for discharge tomorrow Mental status examination on 01/19/2019 at 2:14 PM at the time of discharge: The patient presents alert, pleasant, and cooperative. There calmly seated without any agitated behavior. [He] reports that [his] mood is good. Affect is congruent and euthymic. [He] deny having any suicidal or homicidal ideation intent or plan. [He] denies any auditory or visual hallucinations. There is no evidence of any delusional thought content. [He] thought process is linear and goal-directed. [His] speech is fluent and nonpressured. [His] memory and concentration is grossly intact for the purposes of this session. Patient Condition at Discharge: Stable Plan - Discharge Summary Discharge Rx Participant: Yes New Discharge Prescriptions: New Bacitracin Oint 1 applic TOPICAL BID 20 Days #40 applic cloNIDine HCL [Catapres] 0.1 mg PO BID 30 Days #60 tab Paliperidone [Invega] 6 mg PO 2100 30 Days #30 tab.er.24 lamoTRIgine [LaMICtal] 100 mg PO 2099 30 Days #30 tab Insulin Detemir (Levemir) [Levemir] 10 unit SQ DAILY syr Metoprolol Tartrate [Lopressor] 25 mg PO BID 30 Days #60 tab Continue Insulin Detemir (Levemir) [Levemir] 45 unit SQ HS syr INSULIN ASPART (NovoLOG) [NovoLOG (formulary)] 14 unit SQ AC-SUPPER vial Alogliptin Benzoate [Alogliptin] 25 mg PO DAILY 30 Days #30 tablet Amoxicillin/Potassium Clav [Augmentin 875-125 Tablet] 1 tab PO Q12HR #20 tab Atorvastatin [Lipitor] 80 mg PO HS 30 Days #30 tab Discontinued Sertraline [Zoloft] 50 mg PO DAILY traMADol HCL [Ultram] 50 mg PO Q6HR PRN 3 Days #12 tab PRN Reason: Pain Metoprolol Tartrate [Lopressor] 50 mg PO BID #10 tab Discharge Medication List INSULIN ASPART (NovoLOG) [NovoLOG (formulary)] 14 unit SQ AC-SUPPER vial 01/09/19 [Rx] Insulin Detemir (Levemir) [Levemir] 45 unit SQ HS syr 01/09/19 [Rx] Alogliptin Benzoate [Alogliptin] 25 mg PO DAILY 30 Days #30 tablet 01/19/19 [Rx] Amoxicillin/Potassium Clav [Augmentin 875-125 Tablet] 1 tab PO Q12HR #20 tab 01/19/19 [Rx] Atorvastatin [Lipitor] 80 mg PO HS 30 Days #30 tab 01/19/19 [Rx] Bacitracin Oint 1 applic TOPICAL BID 20 Days #40 applic 01/19/19 [Rx] Insulin Detemir (Levemir) [Levemir] 10 unit SQ DAILY syr 01/19/19 [Rx] Metoprolol Tartrate [Lopressor] 25 mg PO BID 30 Days #60 tab 01/19/19 [Rx] Paliperidone [Invega] 6 mg PO 2100 30 Days #30 tab.er.24 01/19/19 [Rx] cloNIDine HCL [Catapres] 0.1 mg PO BID 30 Days #60 tab 01/19/19 [Rx] lamoTRIgine [LaMICtal] 100 mg PO 2100 30 Days #30 tab 01/19/19 [Rx] Follow up Appointment(s)/Referral(s): Panchito LUIS [Other] - 01/20/19 11:00 am (Phone call appt January 20 @ 11:00am Face to Face at [facility] January 27 @ 13:00 Phone call appt February 03 @ 11:00am) Evie Bass MD [STAFF PHYSICIAN] - 1 Week Mehrdad Ravi PAC [PHYSICIAN CAR FERRY CAPTAIN] - 1 Week (Follow up in one week for suture removal) [facility]inic [Primary Care Provider] - 1 Week Patient Instructions/Handouts: Bipolar Disorder (DC), Depression (DC) Activity/Diet/Wound Care/Special Instructions: Activity and diet as tolerated. No guns or weapons in the home. Refrain from alcohol and street drugs, not prescribed by your physician. Take all medications as prescribed. Attend all follow up appointments as scheduled. If in need of medications please go to your primary care physician, or your out patient psychiatric provider. If in crisis, please call Discharge Disposition: HOME SELF-CARE
== END 2019-01-19 15:25 | disposition home or self-care (01) | DRG 885 ==
LOC: 3MHU 16:10
PROVIDERS: ADMIT Psychiatry & Neurology Psychiatry; ATTEND Psychiatry & Neurology Psychiatry
DX: F31.5 Bipolar disorder, current episode depressed, severe, with psychotic features (principal); D62 Acute posthemorrhagic anemia; E87.1 Hypo-osmolality and hyponatremia; E11.51 Type 2 diabetes mellitus with diabetic peripheral angiopathy without gangrene; E11.65 Type 2 diabetes mellitus with hyperglycemia; D72.829 Elevated white blood cell count, unspecified; F43.10 Post-traumatic stress disorder, unspecified; I10 Essential (primary) hypertension; E78.5 Hyperlipidemia, unspecified; G51.0 Bell's palsy; G47.00 Insomnia, unspecified; S61.511A Laceration without foreign body of right wrist, initial encounter; S61.512A Laceration without foreign body of left wrist, initial encounter; X78.9XXA Intentional self-harm by unspecified sharp object, initial encounter; Z87.891 Personal history of nicotine dependence; Z71.6 Tobacco abuse counseling; Z79.4 Long term (current) use of insulin; Z79.899 Other long term (current) drug therapy; Z98.890 Other specified postprocedural states; Z89.412 Acquired absence of left great toe; Z86.010 Personal history of colon polyps; Z88.7 Allergy status to serum and vaccine; Z83.3 Family history of diabetes mellitus; Z83.49 Family history of other endocrine, nutritional and metabolic diseases
CPT/HCPCS: 80048; 85025

== ENCOUNTER 2019-01-19 17:59 | Emergency (ER) | payer OTHER ==
[2019-01-19 18:06] VITALS: TEMP 98.3
--- NOTE | 2019-01-19 19:23 | ED ---
Male Urogenital HPI - General Chief complaint: Urogenital Stated complaint: Testicles pain Time Seen by Provider: 01/19/19 18:11 Source: patient, RN notes reviewed, old records reviewed Mode of arrival: wheelchair Limitations: no limitations - History of Present Illness Initial comments: This is a 58-year-old male the ER for evaluation. Patient resents today for evaluation regarding scrotal pain. Scrotal edema and erythema. Patient states he was just admitted to 3 W. He denies any dysuria, denies any injury or trauma. Patient noticed swelling today. Pain today. Was just discharged today. MD Complaint: testicle pain, testicle swelling -: hour(s) Location: right testicle, left testicle Radiation: none Severity: mild Severity scale (1-10): 3 Quality: aching Consistency: constant Improves with: none Worsens with: none Reports: denies other symptoms - Related Data Previous Rx's Medication Instructions Recorded INSULIN ASPART (NovoLOG) [NovoLOG 14 unit SQ AC-SUPPER vial 01/09/19 (formulary)] Insulin Detemir (Levemir) [Levemir] 45 unit SQ HS syr 01/09/19 Alogliptin Benzoate [Alogliptin] 25 mg PO DAILY 30 Days #30 tablet 01/19/19 Amoxicillin/Potassium Clav 1 tab PO Q12HR #20 tab 01/19/19 [Augmentin 875-125 Tablet] Atorvastatin [Lipitor] 80 mg PO HS 30 Days #30 tab 01/19/19 Bacitracin Oint 1 applic TOPICAL BID 20 Days #40 01/19/19 applic Furosemide [Lasix] 40 mg PO BID #14 tablet 01/19/19 Insulin Detemir (Levemir) [Levemir] 10 unit SQ DAILY syr 01/19/19 Metoprolol Tartrate [Lopressor] 25 mg PO BID 30 Days #60 tab 01/19/19 Paliperidone [Invega] 6 mg PO 2100 30 Days #30 tab.er.24 01/19/19 cloNIDine HCL [Catapres] 0.1 mg PO BID 30 Days #60 tab 01/19/19 lamoTRIgine [LaMICtal] 100 mg PO 2100 30 Days #30 tab 01/19/19 Allergies Allergy/AdvReac Type Severity Reaction Status Date / Time Tetanus Vaccines and Toxoid Allergy Rash/Hives Verified 01/19/19 18:37 Review of Systems ROS Statement: Those systems with pertinent positive or pertinent negative responses have been documented in the HPI. ROS Other: All systems not noted in ROS Statement are negative. 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 History of Any Multi-Drug Resistant Organisms: None Reported Past Surgical History: Adenoidectomy, Tonsillectomy Additional Past Surgical History / Comment(s): Colonoscopy with benign polypectomies Past Anesthesia/Blood Transfusion Reactions: No Reported Reaction Past Psychological History: Anxiety Smoking Status: Former smoker Past Alcohol Use History: None Reported Past Drug Use History: Marijuana - Past Family History Father Family Medical History: Diabetes Mellitus Additional Family Medical History / Comment(s): Father had gallbladder disease. He is 77yrs old. Mother Family Medical History: Hyperlipidemia General Exam Limitations: no limitations General appearance: alert, in no apparent distress Head exam: Present: atraumatic, normocephalic, normal inspection Eye exam: Present: normal appearance, PERRL, EOMI. Absent: scleral icterus, conjunctival injection, periorbital swelling ENT exam: Present: normal exam, mucous membranes moist Neck exam: Present: normal inspection. Absent: tenderness, meningismus, lymphadenopathy Respiratory exam: Present: normal lung sounds bilaterally. Absent: respiratory distress, wheezes, rales, rhonchi, stridor Cardiovascular Exam: Present: regular rate, normal rhythm, normal heart sounds. Absent: systolic murmur, diastolic murmur, rubs, gallop, clicks GI/Abdominal exam: Present: soft, normal bowel sounds. Absent: distended, tenderness, guarding, rebound, rigid Extremities exam: Present: normal inspection, full ROM, normal capillary refill. Absent: tenderness, pedal edema, joint swelling, calf tenderness Back exam: Present: normal inspection Neurological exam: Present: alert, oriented X3, CN II-XII intact Psychiatric exam: Present: normal affect, normal mood Skin exam: Present: warm, dry, intact, normal color. Absent: rash Course Vital Signs 01/19/19 18:04 Temperature 98.3 F Pulse Rate 84 Respiratory 20 Rate Blood Pressure 151/74 O2 Sat by Pulse 99 Oximetry Medical Decision Making - Medical Decision Making 58 male the ER for evaluation of nonspecific testicular pain and swelling. Ultrasound is negative, urinalysis is negative. Patient can be discharged - Lab Data Lab Results 01/19/19 Range/Units 20:10 Urine Color Light Yellow Urine Appearance Clear (Clear) Urine pH 5.0 (5.0-8.0) Ur Specific [place] 1.019 (1.001-1.035) Urine Protein 1+ H (Negative) Urine Glucose (UA) 4+ H (Negative) Urine Ketones Negative (Negative) Urine Blood Trace H (Negative) Urine Nitrite Negative (Negative) Urine Bilirubin Negative (Negative) Urine Urobilinogen <2.0 (<2.0) mg/dL Ur Leukocyte Esterase Negative (Negative) Urine RBC 2 (0-5) /hpf Urine WBC 3 (0-5) /hpf Urine Mucus Rare H (None) /hpf Disposition Clinical Impression: Scrotal pain, Scrotal edema Disposition: HOME SELF-CARE Condition: Good Instructions (If sedation given, give patient instructions): Scrotal Pain (ED) Prescriptions: Furosemide [Lasix] 40 mg PO BID #14 tablet Is patient prescribed a controlled substance at d/c from ED?: No Referrals: [facility],Clinic [Primary Care Provider] - 1-2 days
--- NOTE | 2019-01-19 20:01 | US ---
EXAMINATION TYPE: US scrotum with doppler. Grayscale and color Doppler Duplex imaging performed of cyndi laguna scrotum. DATE OF EXAM: 01/19/2019 COMPARISON: None CLINICAL HISTORY: Pain. Edema bilaterally. EXAM MEASUREMENTS: There is prominent bilateral scrotal thickening, greater on the left. There is no evidence of echogenic foci with ringdown artifact, to suggest soft tissue emphysema. TESTICLES: Right Testicle: 3.9 x 3.3 x 3.0 cm Left Testicle: 3.8 x 3.2 x 2.6 cm EPIDIDYMIS HEAD: Right Epididymis: .8 x 1.0 x .5 cm Left Epididymis: Not well visualized due to edema. Doppler performed to assess for testicular vascularity. There is Doppler perfusion bilaterally with c olor flow and waveforms seen. There is no evidence of testicular torsion. Presence of hydroceles: no Presence of varicoceles: no IMPRESSION: Prominent bilateral scrotal skin thickening right side 3.9cm and left side 5.6cm. No other findings.
[2019-01-19 20:39] LABS: Appearance,Urine Clear (Clear); Bilirubin,Urine Negative (Negative); Blood,Urine Trace (Negative); Color,Urine Light Yellow; Glucose,Urine (UA) 4+ (Negative); Ketones,Urine Negative (Negative); Leukocyte Esterase,Urine Negative (Negative); Mucus,Urine Rare /hpf; Nitrite,Urine Negative (Negative); Protein,Urine 1+ (Negative); RBC,Urine 2 /hpf (0-5); Specific Gravity,Urine 1.019 (1.001-1.035); Urobilinogen,Urine <2.0 mg/dL (<2.0)
[2019-01-19] MEDS ORDERED: FUROSEMIDE 40 MG TAB PO STA (21:00)
[2019-01-19 21:31] VITALS: BP 140/75; PULSE 80; RESP 18
[2019-01-21 13:47] LABS: C. trachomatis,PCR Negative (Neg,Equiv); Chlamydia trachomatis Source Urine
[2019-01-21 13:50] LABS: N. gonorrhoeae,PCR Negative (Neg,Equiv); Neisseria Source Urine
== END 2019-01-19 21:15 | disposition home or self-care (01) ==
LOC: EC 17:59
DX: N50.82 Scrotal pain (principal); N50.89 Other specified disorders of the male genital organs; Z88.7 Allergy status to serum and vaccine; Z87.891 Personal history of nicotine dependence
CPT/HCPCS: 76870; 81001; 87491; 87591; 93975; 99284

== ENCOUNTER 2019-01-29 08:09 | Inpatient (IN) | payer OTHER ==
--- NOTE | 2019-01-29 08:36 | ED ---
General Adult HPI - General Source: patient, RN notes reviewed Mode of arrival: ambulatory Limitations: no limitations <Dawit Flynn - Last Filed: 01/29/19 10:47> <Primitivo Bailon - Last Filed: 01/29/19 11:37> - General Chief complaint: Urogenital Stated complaint: Male Time Seen by Provider: 01/29/19 08:14 - History of Present Illness Initial comments: 58-year-old male with a past medical history of insulin-dependent diabetes mellitus, hyperlipidemia, hypertension presents to the emergency department for a chief complaint of testicular swelling 1 month. Patient states she seems to be getting worse and worse. States the swelling is also in his legs. States he has developed chronic wounds on his feet that he now has a wound care appointment for. He does admit to feeling short of breath as well. Patient states this worsens when he is walking or doing any exertional activity. He denies a history of heart failure but does admit to taking Lasix. Patient denies any chest pain.Patient has no other complaints at this time including shortness of breath, chest pain, abdominal pain, nausea or vomiting, headache, or visual changes. (Dawit Flynn) - Related Data Home Medications Medication Instructions Recorded Confirmed lamoTRIgine [LaMICtal] 100 mg PO HS@2100 01/20/19 01/29/19 ALPRAZolam [Xanax] 1 mg PO DAILY 01/29/19 01/29/19 INSULIN ASPART (NovoLOG) [NovoLOG 5 unit SQ AC-SUPPER 01/29/19 01/29/19 (formulary)] Insulin Glargine,Hum.rec.anlog 35 unit SQ DAILY 01/29/19 01/29/19 [Lantus Solostar] Sertraline HCl [Zoloft] 50 mg PO DAILY 01/29/19 01/29/19 metFORMIN HCL 1,000 mg PO BID 01/29/19 01/29/19 Previous Rx's Medication Instructions Recorded Alogliptin Benzoate [Alogliptin] 25 mg PO DAILY 30 Days #30 tablet 01/19/19 Atorvastatin [Lipitor] 80 mg PO HS 30 Days #30 tab 01/19/19 Furosemide [Lasix] 40 mg PO BID #14 tablet 01/19/19 Metoprolol Tartrate [Lopressor] 25 mg PO BID 30 Days #60 tab 01/19/19 cloNIDine HCL [Catapres] 0.1 mg PO BID 30 Days #60 tab 01/19/19 Allergies Allergy/AdvReac Type Severity Reaction Status Date / Time No Known Allergies Allergy Verified 01/29/19 08:39 Review of Systems ROS Other: All systems not noted in ROS Statement are negative. <Dawit Flynn - Last Filed: 01/29/19 10:47> ROS Other: All systems not noted in ROS Statement are negative. <Primitivo Bailon - Last Filed: 01/29/19 11:37> ROS Statement: Those systems with pertinent positive or pertinent negative responses have been documented in the HPI. 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 History of Any Multi-Drug Resistant Organisms: None Reported Past Surgical History: Adenoidectomy, Tonsillectomy Additional Past Surgical History / Comment(s): Colonoscopy with benign polypectomies Past Anesthesia/Blood Transfusion Reactions: No Reported Reaction Past Psychological History: Anxiety Smoking Status: Former smoker Past Alcohol Use History: None Reported Past Drug Use History: Marijuana - Past Family History Father Family Medical History: Diabetes Mellitus Additional Family Medical History / Comment(s): Father had gallbladder disease. He is 77yrs old. Mother Family Medical History: Hyperlipidemia <Dawit Flynn P - Last Filed: 01/29/19 10:47> General Exam Limitations: no limitations General appearance: alert, in no apparent distress Head exam: Present: atraumatic, normocephalic, normal inspection Eye exam: Present: normal appearance, PERRL, EOMI. Absent: scleral icterus, conjunctival injection, periorbital swelling ENT exam: Present: normal exam, mucous membranes moist Neck exam: Present: normal inspection, full ROM. Absent: tenderness, meningismus, lymphadenopathy Respiratory exam: Present: normal lung sounds bilaterally. Absent: respiratory distress, wheezes, rales, rhonchi, stridor Cardiovascular Exam: Present: regular rate, normal rhythm, normal heart sounds. Absent: systolic murmur, diastolic murmur, rubs, gallop, clicks GI/Abdominal exam: Present: soft, normal bowel sounds, other (edema noted in the superficial lower abdomen). Absent: distended, tenderness, guarding, rebound, rigid exam: Present: scrotal swelling (signficant pitting scrotal edema noted) Extremities exam: Present: other (chronic wounds noted on bilat feet) Neurological exam: Present: alert, oriented X3, CN II-XII intact Psychiatric exam: Present: normal affect, normal mood <Dawit Flynn - Last Filed: 01/29/19 10:47> Course <Primitivo Bailon - Last Filed: 01/29/19 11:37> Vital Signs 01/29/19 01/29/19 01/29/19 08:09 10:05 11:30 Temperature 98.6 F 97.8 F Pulse Rate 79 82 78 Respiratory 16 16 16 Rate Blood Pressure 111/75 115/74 166/81 O2 Sat by Pulse 96 98 98 Oximetry - Reevaluation(s) Reevaluation #1: 01/29/19 11:37 A supervision: I personally evaluate this case and do agree with the assessment and plan I did discuss the case with Dr. Grewal (Primitivo Bailon) EKG Findings - EKG Comments: EKG Findings:: Normal sinus rhythm, right bundle branch block, ventricular rate 74, SC interval 186, QTc 461 <Dawit Flynn - Last Filed: 01/29/19 10:47> Medical Decision Making - Lab Data Result diagrams: 01/29/19 08:48 01/29/19 08:48 <Dawit Flynn - Last Filed: 01/29/19 10:47> - Lab Data Result diagrams: 01/29/19 08:48 01/29/19 08:48 <Primitivo Bailon - Last Filed: 01/29/19 11:37> - Medical Decision Making 58-year-old male presents to the emergency department for scrotal edema, bilateral lower extremity swelling, and shortness of breath. States this has been ongoing and worsening for about a month. Patient states he also has chronic wounds that are worsening. Patient is a diabetic insulin-dependent. On exam patient does have pitting edema noted of bilateral lower extremities with significant edema noted of the scrotum. Patient did have an ultrasound of the scrotum about 2 weeks ago which showed skin thickening, no hydrocele or varicocele. Hemoglobin 9.2 which seems to be patient's baseline. CMP does show a creatinine of 1.87 which is somewhat elevated compared to patient's baseline, likely acute on chronic. Troponin 0.066 likely secondary to patient's kidney function, no chest pain. BNP of 5000 with pleural effusion noted on chest x- ray. Patient was started on IV Lasix. Patient well-appearing at this time requesting Robertson's. I did discuss heart healthy diet with patient will be initiated. Dr. Bailon spoke with Dr. Grewal who recommends cardiology and pulmonology consult. (Dawit Flynn) - Lab Data Lab Results 01/29/19 01/29/19 01/29/19 Range/Units 08:48 08:48 08:48 WBC 9.8 (3.8-10.6) k/uL RBC 3.28 L (4.30-5.90) m/uL Hgb 9.2 L (13.0-17.5) gm/dL Hct 29.7 L (39.0-53.0) % MCV 90.6 D (80.0-100.0) fL MCH 27.9 (25.0-35.0) pg MCHC 30.8 L (31.0-37.0) g/dL RDW 15.8 H (11.5-15.5) % Plt Count 366 (150-450) k/uL Neutrophils % 80 % Lymphocytes % 7 % Monocytes % 7 % Eosinophils % 4 % Basophils % 0 % Neutrophils # 7.9 H (1.3-7.7) k/uL Lymphocytes # 0.7 L (1.0-4.8) k/uL Monocytes # 0.7 (0-1.0) k/uL Eosinophils # 0.4 (0-0.7) k/uL Basophils # 0.0 (0-0.2) k/uL Hypochromasia Marked Poikilocytosis Moderate PT (9.0-12.0) sec INR (<1.2) APTT (22.0-30.0) sec Sodium 137 (137-145) mmol/L Potassium 5.1 (3.5-5.1) mmol/L Chloride 104 (98-107) mmol/L Carbon Dioxide 24 (22-30) mmol/L Anion Gap 9 mmol/L BUN 61 H (9-20) mg/dL Creatinine 1.87 H (0.66-1.25) mg/dL Est GFR (CKD-EPI)AfAm 45 (>60 ml/min/1.73 sqM) Est GFR (CKD-EPI)NonAf 39 (>60 ml/min/1.73 sqM) Glucose 104 H (74-99) mg/dL Calcium 8.5 (8.4-10.2) mg/dL Magnesium 1.8 (1.6-2.3) mg/dL Total Bilirubin 0.6 (0.2-1.3) mg/dL AST 21 (17-59) U/L ALT 60 (21-72) U/L Alkaline Phosphatase 154 H (38-126) U/L Troponin I (0.000-0.034) ng/mL NT-Pro-B Natriuret Pep 5210 pg/mL Total Protein 6.0 L (6.3-8.2) g/dL Albumin 2.9 L (3.5-5.0) g/dL Urine Color Urine Appearance (Clear) Urine pH (5.0-8.0) Ur Specific [place] (1.001-1.035) Urine Protein (Negative) Urine Glucose (UA) (Negative) Urine Ketones (Negative) Urine Blood (Negative) Urine Nitrite (Negative) Urine Bilirubin (Negative) Urine Urobilinogen (<2.0) mg/dL Ur Leukocyte Esterase (Negative) 01/29/19 01/29/19 01/29/19 Range/Units 08:48 08:48 09:01 WBC (3.8-10.6) k/uL RBC (4.30-5.90) m/uL Hgb (13.0-17.5) gm/dL Hct (39.0-53.0) % MCV (80.0-100.0) fL MCH (25.0-35.0) pg MCHC (31.0-37.0) g/dL RDW (11.5-15.5) % Plt Count (150-450) k/uL Neutrophils % % Lymphocytes % % Monocytes % % Eosinophils % % Basophils % % Neutrophils # (1.3-7.7) k/uL Lymphocytes # (1.0-4.8) k/uL Monocytes # (0-1.0) k/uL Eosinophils # (0-0.7) k/uL Basophils # (0-0.2) k/uL Hypochromasia Poikilocytosis PT 12.7 H (9.0-12.0) sec INR 1.2 H (<1.2) APTT 27.6 (22.0-30.0) sec Sodium (137-145) mmol/L Potassium (3.5-5.1) mmol/L Chloride (98-107) mmol/L Carbon Dioxide (22-30) mmol/L Anion Gap mmol/L BUN (9-20) mg/dL Creatinine (0.66-1.25) mg/dL Est GFR (CKD-EPI)AfAm (>60 ml/min/1.73 sqM) Est GFR (CKD-EPI)NonAf (>60 ml/min/1.73 sqM) Glucose (74-99) mg/dL Calcium (8.4-10.2) mg/dL Magnesium (1.6-2.3) mg/dL Total Bilirubin (0.2-1.3) mg/dL AST (17-59) U/L ALT (21-72) U/L Alkaline Phosphatase (38-126) U/L Troponin I 0.066 H* (0.000-0.034) ng/mL NT-Pro-B Natriuret Pep pg/mL Total Protein (6.3-8.2) g/dL Albumin (3.5-5.0) g/dL Urine Color Yellow Urine Appearance Clear (Clear) Urine pH 5.0 (5.0-8.0) Ur Specific [place] 1.012 (1.001-1.035) Urine Protein Trace H (Negative) Urine Glucose (UA) Negative (Negative) Urine Ketones Negative (Negative) Urine Blood Negative (Negative) Urine Nitrite Negative (Negative) Urine Bilirubin Negative (Negative) Urine Urobilinogen <2.0 (<2.0) mg/dL Ur Leukocyte Esterase Negative (Negative) Disposition Time of Disposition: 10:50 <Dawit Flynn - Last Filed: 01/29/19 10:47> <Primitivo Bailon - Last Filed: 01/29/19 11:37> Clinical Impression: CHF (congestive heart failure), SOB (shortness of breath), Pleural effusion, Elevated troponin Disposition: ADMITTED IP TO THIS HOSP Condition: Fair
[2019-01-29 09:10] LABS: Basophils % (A) 0 %; Eosinophils # (A) 0.4 k/uL (0-0.7); Eosinophils % (A) 4 %; HCT 29.7 % (39.0-53.0); HGB 9.2 gm/dL (13.0-17.5); Hypochromasia Marked; Lymphocytes # (A) 0.7 k/uL (1.0-4.8); Lymphocytes % (A) 7 %; MCH 27.9 pg (25.0-35.0); MCHC 30.8 g/dL (31.0-37.0); Mean Platelet Volume 7.7; Monocytes # (A) 0.7 k/uL (0-1.0); Monocytes % (A) 7 %; Neutrophils # (A) 7.9 k/uL (1.3-7.7); Neutrophils % (A) 80 %; Platelet Count 366 k/uL (150-450); Poikilocytosis Moderate; RBC 3.28 m/uL (4.30-5.90); RDW 15.8 % (11.5-15.5); WBC 9.8 k/uL (3.8-10.6)
--- NOTE | 2019-01-29 09:12 | XR ---
EXAMINATION TYPE: XR chest 2V DATE OF EXAM: 01/29/2019 COMPARISON: Prior chest x-ray 01/05/2019 HISTORY: Chest pain TECHNIQUE: Frontal and lateral views of the chest are obtained. FINDINGS: Abnormal increased density present at the right lung base. Heart is enlarged. No pneumotho rax. Aorta is dense. IMPRESSION: Correlate for right lower lobe pneumonia, associated effusion versus atelectasis, follow -up to resolution.
[2019-01-29 09:13] LABS: MCV 90.6 fL (80.0-100.0)
[2019-01-29] MEDS ORDERED: FUROSEMIDE 10 MG/ML 2 ML VIAL IV STA (09:13)
[2019-01-29 09:19] LABS: INR 1.2 (<1.2); Partial Thromboplastin Time 27.6 sec (22.0-30.0); Prothrombin Time 12.7 sec (9.0-12.0)
[2019-01-29 09:25] LABS: Appearance,Urine Clear (Clear); Bilirubin,Urine Negative (Negative); Blood,Urine Negative (Negative); Color,Urine Yellow; Glucose,Urine (UA) Negative (Negative); Ketones,Urine Negative (Negative); Leukocyte Esterase,Urine Negative (Negative); Nitrite,Urine Negative (Negative); Protein,Urine Trace (Negative); Specific Gravity,Urine 1.012 (1.001-1.035); Urobilinogen,Urine <2.0 mg/dL (<2.0)
[2019-01-29 09:33] LABS: Albumin 2.9 g/dL (3.5-5.0); Calcium 8.5 mg/dL (8.4-10.2); Magnesium 1.8 mg/dL (1.6-2.3); Potassium 5.1 mmol/L (3.5-5.1); Total Bilirubin 0.6 mg/dL (0.2-1.3)
[2019-01-29] MEDS ORDERED: FUROSEMIDE 10 MG/ML 2 ML VIAL IV ONE (10:41)
[2019-01-29] MEDS ORDERED: ASPIRIN 81 MG PO STA (10:50)
[2019-01-29] MEDS: hydrALAZINE HCL 25 MG TAB PO SCH ×2 (13:19→21:59)
[2019-01-29] MEDS: METOPROLOL TARTRATE 25 MG TAB PO SCH ×2 (13:19→21:59)
[2019-01-29] MEDS: INSULIN ASPART (NovoLOG) 100 UNIT/ML VIAL SQ SCH ×3 (13:20→21:59)
[2019-01-29 13:26] LABS: Glucose,Whole Blood 109 mg/dL (75-99)
--- NOTE | 2019-01-29 14:09 | P.NPCON ---
History of Present Illness - Reason for Consult acute renal failure - History of Present Illness Reason for consultation: Acute kidney injury History of present illness: Patient is a 58-year-old male seen in renal consultation for acute kidney injury. Patient was seen in the emergency room. Patient's creatinine today is 1.87. He was recently admitted to the hospital last month and underwent amputation of the left big toe. Patient states over the last 1 month he's been developing worsening edema in his lower extremities but is especially worse in his testicles. Patient does have long-standing history of diabetes mellitus. He has been voiding. No hematuria or dysuria. No vomiting or diarrhea. No fever or chills. No abdominal pain. Denies use of nonsteroidals. No chest pain. Patient states he's been progressively getting more short of breath over the last 1 month as well. He is currently maintained on IV Lasix. Ultrasound from last month reveals no evidence of hydronephrosis. He had a scrotal ultrasound done on 01/19/2019 which revealed skin thickening but no hydrocele or varicocele. Denies family history of renal disease. Vital signs are stable. General: The patient appeared well nourished and normally developed. HEENT: Head exam is unremarkable. Neck is without jugular venous distension. LUNGS: Lungs are clear to auscultation and percussion. Breath sounds decreased. HEART: Rate and Rhythm are regular. First and second heart sounds normal. No murmurs, rubs or gallops. ABDOMEN: Abdominal exam reveals normal bowel sounds. Non-tender and non- distended. EXTREMITITES: 1+ edema. Left big toe amputation noted. 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 History of Any Multi-Drug Resistant Organisms: None Reported Past Surgical History: Adenoidectomy, Tonsillectomy Additional Past Surgical History / Comment(s): L great toe amputation, L 5th toe amputation, L writst laceration repair, colonoscopy with benign polypectomies Past Anesthesia/Blood Transfusion Reactions: No Reported Reaction Past Psychological History: Anxiety, Bipolar, Depression Additional Psychological History / Comment(s): Pt resides with his parents. He currently is using a walker. He normally can drive. He has had a recent suicide attempt by cutting L wrist and was admitted to [facility]. He states he no longer feels suicidal. Smoking Status: Former smoker Past Alcohol Use History: None Reported Additional Past Alcohol Use History / Comment(s): Pt started smoking in 1975 and quit in 2015. He states he did relapse for a couple months once since quitting. Past Drug Use History: Marijuana Additional Drug Use History / Comment(s): Pt states he quit smoking marijuana and that he has not smoked marijuana in 4 months. - Past Family History Father Family Medical History: Diabetes Mellitus Additional Family Medical History / Comment(s): Father had gallbladder disease. He is 77yrs old. Mother Family Medical History: Hyperlipidemia Medications and Allergies Home Medications Medication Instructions Recorded Confirmed Type Alogliptin Benzoate [Alogliptin] 25 mg PO DAILY 30 Days #30 tablet 01/19/19 01/29/19 Rx Atorvastatin [Lipitor] 80 mg PO HS 30 Days #30 tab 01/19/19 01/29/19 Rx Furosemide [Lasix] 40 mg PO BID #14 tablet 01/19/19 01/29/19 Rx Metoprolol Tartrate [Lopressor] 25 mg PO BID 30 Days #60 tab 01/19/19 01/29/19 Rx cloNIDine HCL [Catapres] 0.1 mg PO BID 30 Days #60 tab 01/19/19 01/29/19 Rx lamoTRIgine [LaMICtal] 100 mg PO HS@2100 01/20/19 01/29/19 History ALPRAZolam [Xanax] 1 mg PO DAILY 01/29/19 01/29/19 History INSULIN ASPART (NovoLOG) [NovoLOG 5 unit SQ AC-SUPPER 01/29/19 01/29/19 History (formulary)] Insulin Glargine,Hum.rec.anlog 35 unit SQ DAILY 01/29/19 01/29/19 History [Lantus Solostar] Sertraline HCl [Zoloft] 50 mg PO DAILY 01/29/19 01/29/19 History metFORMIN HCL 1,000 mg PO BID 01/29/19 01/29/19 History Allergies Allergy/AdvReac Type Severity Reaction Status Date / Time No Known Allergies Allergy Verified 01/29/19 08:39 Physical Exam Vitals: Vital Signs Temp Pulse Resp BP Pulse Ox 01/29/19 13:15 82 18 107/65 97 01/29/19 11:30 97.8 F 78 16 166/81 98 01/29/19 10:05 82 16 115/74 98 01/29/19 08:09 98.6 F 79 16 111/75 96 Intake and Output 01/28/19 01/29/19 01/29/19 22:59 06:59 14:59 Other: Weight 120.202 kg Results - Lab Results Most recent lab results Calcium 8.5 mg/dL (8.4-10.2) 01/29/19 08:48 Magnesium 1.8 mg/dL (1.6-2.3) 01/29/19 08:48 01/29/19 08:48 01/29/19 08:48 Assessment and Plan Plan: Assessment: 1. Acute kidney injury mostly prerenal secondary to cardiorenal syndrome. Creatinine 1.87 today. Baseline creatinine near 1. UA is quite benign. Ultrasound from last month revealed no evidence of hydronephrosis. 2. Dyspnea secondary to volume overload. 3. Insulin-dependent diabetes mellitus. 4. Anemia. Rule out iron deficiency. 5. Benign hypertension. 6. 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 Plan: Discontinue IV Lasix and start Lasix drip at 10 mL an hour. Low-salt diet and 1.5 L fluid restriction. Daily weights. Avoid nephrotoxins. Check iron studies. Follow-up echocardiogram. Repeat electrolytes in the morning. Thank you for the consultation. I will continue to follow the patient with you during his hospital stay.
[2019-01-29] MEDS ORDERED: VANCOMYCIN IV PER PHARMACY 1 EACH MISC MISCELLANE PRN (15:15)
[2019-01-29] MEDS ORDERED: VANCOMYCIN 1,250 MG in SODIUM CHLORIDE 0.9% 250 ML IVPB SCH (15:15)
--- NOTE | 2019-01-29 15:34 | P.HPIM ---
History of Present Illness H&P Date: 01/29/19 58-year-old male with a past medical history of insulin-dependent diabetes mellitus, hyperlipidemia, hypertension presents to the emergency department for a chief complaint of testicular swelling 1 month. Patient states she seems to be getting worse and worse. States the swelling is also in his legs. States he has developed chronic wounds on his feet that he now has a wound care appointment for. He does admit to feeling short of breath as well. Patient states this worsens when he is walking or doing any exertional activity. He denies a history of heart failure but does admit to taking Lasix. Patient denies any chest pain.Patient has no other complaints at this time including shortness of breath, chest pain, abdominal pain, nausea or vomiting, headache, or visual changes. Patient did have ultrasound of score scrotum done about 2 weeks ago which showed skin thickening without any hydrocele or varicocele Workup in ED was significant for a hemoglobin of 9.2, creatinine of 1.87 and e levated troponin at 0.066 possibly secondary to worsening renal function; BNP of 5000. Pleural effusion showing on chest x-ray Patient was treated with IV Lasix in ED and is admitted to the hospital for further cardiology and nephrology evaluation Review of Systems Constitutional: Reports weight gain, Denies chills, Denies fever Eyes: denies blurred vision Cardiovascular: Reports shortness of breath, Denies chest pain Respiratory: Denies cough with sputum Gastrointestinal: Denies abdominal pain, Denies nausea, Denies vomiting Genitourinary: Denies dysuria, Denies hematuria Musculoskeletal: Denies morning stiffness, Denies muscle cramps Neurological: Denies confusion, Denies double vision Psychiatric: Denies confusion Endocrine: Denies cold intolerance, Denies heat intolerance Hematologic/Lymphatic: Denies easy bruising, Denies lymphedema Allergic/Immunologic: Denies angioedema Past Medical History Past Medical History: Diabetes Mellitus, Hyperlipidemia, Hypertension, Neurologic Disorder Additional Past Medical History / Comment(s): IDDM type II, PVD, recent gangrene L great toe with amputation, 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 History of Any Multi-Drug Resistant Organisms: None Reported Past Surgical History: Adenoidectomy, Tonsillectomy Additional Past Surgical History / Comment(s): L great toe amputation, L 5th toe amputation, L writst laceration repair, colonoscopy with benign polypectomies Past Anesthesia/Blood Transfusion Reactions: No Reported Reaction Past Psychological History: Anxiety, Bipolar, Depression Additional Psychological History / Comment(s): Pt resides with his parents. He currently is using a walker. He normally can drive. He has had a recent suicide attempt by cutting L wrist and was admitted to [facility]. He states he no longer feels suicidal. Smoking Status: Former smoker Past Alcohol Use History: None Reported Additional Past Alcohol Use History / Comment(s): Pt started smoking in 1975 and quit in 2015. He states he did relapse for a couple months once since quitting. Past Drug Use History: Marijuana Additional Drug Use History / Comment(s): Pt states he quit smoking marijuana and that he has not smoked marijuana in 4 months. - Past Family History Father Family Medical History: Diabetes Mellitus Additional Family Medical History / Comment(s): Father had gallbladder disease. He is 77yrs old. Mother Family Medical History: Hyperlipidemia Medications and Allergies Home Medications Medication Instructions Recorded Confirmed Type Alogliptin Benzoate [Alogliptin] 25 mg PO DAILY 30 Days #30 tablet 01/19/19 01/29/19 Rx Atorvastatin [Lipitor] 80 mg PO HS 30 Days #30 tab 01/19/19 01/29/19 Rx Furosemide [Lasix] 40 mg PO BID #14 tablet 01/19/19 01/29/19 Rx Metoprolol Tartrate [Lopressor] 25 mg PO BID 30 Days #60 tab 01/19/19 01/29/19 Rx cloNIDine HCL [Catapres] 0.1 mg PO BID 30 Days #60 tab 01/19/19 01/29/19 Rx lamoTRIgine [LaMICtal] 100 mg PO HS@2100 01/20/19 01/29/19 History ALPRAZolam [Xanax] 1 mg PO DAILY 01/29/19 01/29/19 History INSULIN ASPART (NovoLOG) [NovoLOG 5 unit SQ AC-SUPPER 01/29/19 01/29/19 History (formulary)] Insulin Glargine,Hum.rec.anlog 35 unit SQ DAILY 01/29/19 01/29/19 History [Lantus Solostar] Sertraline HCl [Zoloft] 50 mg PO DAILY 01/29/19 01/29/19 History metFORMIN HCL 1,000 mg PO BID 01/29/19 01/29/19 History Allergies Allergy/AdvReac Type Severity Reaction Status Date / Time No Known Allergies Allergy Verified 01/29/19 08:39 Physical Exam Vitals: Vital Signs Temp Pulse Resp BP Pulse Ox 01/29/19 11:30 97.8 F 78 16 166/81 98 01/29/19 10:05 82 16 115/74 98 01/29/19 08:09 98.6 F 79 16 111/75 96 Intake and Output 01/28/19 01/29/19 01/29/19 22:59 06:59 14:59 Other: Weight 120.202 kg Limitations: no limitations General appearance: alert, in no apparent distress Head exam: Present: atraumatic, normocephalic, normal inspection Eye exam: Present: normal appearance, PERRL, EOMI. Absent: scleral icterus, conjunctival injection, periorbital swelling ENT exam: Present: normal exam, mucous membranes moist Neck exam: Present: normal inspection, full ROM. Absent: tenderness, meningismus, lymphadenopathy Respiratory exam: Present: normal lung sounds bilaterally. Absent: respiratory distress, wheezes, rales, rhonchi, stridor Cardiovascular Exam: Present: regular rate, normal rhythm, normal heart sounds. Absent: systolic murmur, diastolic murmur, rubs, gallop, clicks GI/Abdominal exam: Present: soft, normal bowel sounds, other (edema noted in the superficial lower abdomen). Absent: distended, tenderness, guarding, rebound, rigid exam: Present: scrotal swelling (signficant pitting scrotal edema noted) Extremities exam: Present: other (chronic wounds noted on bilat feet) Neurological exam: Present: alert, oriented X3, CN II-XII intact Psychiatric exam: Present: normal affect, normal mood Results CBC & Chem 7: 01/29/19 08:48 01/29/19 08:48 Labs: Abnormal Lab Results - Last 24 Hours (Table) 01/29/19 01/29/19 01/29/19 Range/Units 08:48 08:48 08:48 RBC 3.28 L (4.30-5.90) m/uL Hgb 9.2 L (13.0-17.5) gm/dL Hct 29.7 L (39.0-53.0) % MCHC 30.8 L (31.0-37.0) g/dL RDW 15.8 H (11.5-15.5) % Neutrophils # 7.9 H (1.3-7.7) k/uL Lymphocytes # 0.7 L (1.0-4.8) k/uL PT 12.7 H (9.0-12.0) sec INR 1.2 H (<1.2) BUN 61 H (9-20) mg/dL Creatinine 1.87 H (0.66-1.25) mg/dL Glucose 104 H (74-99) mg/dL Alkaline Phosphatase 154 H (38-126) U/L Troponin I (0.000-0.034) ng/mL Total Protein 6.0 L (6.3-8.2) g/dL Albumin 2.9 L (3.5-5.0) g/dL Urine Protein (Negative) 01/29/19 01/29/19 Range/Units 08:48 09:01 RBC (4.30-5.90) m/uL Hgb (13.0-17.5) gm/dL Hct (39.0-53.0) % MCHC (31.0-37.0) g/dL RDW (11.5-15.5) % Neutrophils # (1.3-7.7) k/uL Lymphocytes # (1.0-4.8) k/uL PT (9.0-12.0) sec INR (<1.2) BUN (9-20) mg/dL Creatinine (0.66-1.25) mg/dL Glucose (74-99) mg/dL Alkaline Phosphatase (38-126) U/L Troponin I 0.066 H* (0.000-0.034) ng/mL Total Protein (6.3-8.2) g/dL Albumin (3.5-5.0) g/dL Urine Protein Trace H (Negative) Assessment and Plan Assessment: 1. Dyspnea; acute exacerbation CHF/ fluid overload secondary to cardiac renal syndrome - Patient is started on IV Lasix drip at a rate of 10 mils/hr per nephrology se rvice - Recommendations are for low salt diet and 1.5 L fluid restriction - Echocardiogram is ordered and pending; await further recommendations from cardiology 2. Acute on chronic kidney disease; cardiorenal syndrome - Patient is recommended IV Lasix drip as above - We will monitor strict ANAYA's, daily weights, renal function and electrolytes; check iron studies - Avoid nephrotoxins and hypotension; nephrology is following 3. Elevated troponin; possibly secondary to worsening kidney disease versus acute coronary syndrome - We will plan to trend troponin and monitor EKG; 2-D echo is ordered - Further recommendations per cardiology 4. Hypertension; stable on metoprolol 25 mg twice a day and hydralazine 25 mg twice a day 5. Insulin-dependent diabetes; monitor Accu-Cheks every before meals and at bedtime with insulin sliding scale 6. Hyperlipidemia; Lipitor 80 mg by mouth daily at bedtime DVT prophylaxis; SCDs CODE STATUS; full code Time with Patient: Greater than 30
[2019-01-29] MEDS: FUROSEMIDE 100 MG in SODIUM CHLORIDE 0.9% 90 ML IV SCH ×2 (15:45→23:13)
[2019-01-29] MEDS: CEFEPIME 2 GM in SODIUM CHLORIDE 0.9% 100 ML IVPB SCH ×2 (15:50→23:13)
[2019-01-29] MEDS ORDERED: FUROSEMIDE 10 MG/ML 4 ML VIAL IV SCH (16:00)
[2019-01-29] MEDS ORDERED: VANCOMYCIN 2,000 MG in SODIUM CHLORIDE 0.9% 500 ML 500 ML IVPB SCH (16:00)
[2019-01-29 16:39] LABS: Glucose,Whole Blood 154 mg/dL (75-99)
--- NOTE | 2019-01-29 16:39 | CONS ---
CONSULTATION Mr. Talbot is a 58-year-old male with longstanding history of hypertension, hyperlipidemia and diabetes mellitus who is followed at the [facility] in [place]. He presented with symptoms of progressive dyspnea, peripheral edema and scrotal edema. He was recently in the hospital early in January with a suicidal attempt, and at the same time he had evidence of left great toe dry gangrene. According to the patient, since his discharge his dyspnea was getting worse. His shortness of breath has progressed to the point that he is very limited in his physical activity. His peripheral edema and testicular edema was getting worse. He claims that he is compliant with his medication. He denies any chest pain. He has right-sided discomfort when he takes a deep breath. He has no dizziness. No palpitation. No syncope. He denies any prior cardiac history or recent cardiac workup. He had necrotic toe and osteomyelitis of the toe in 2017. Reviewing the records, I do not see any evidence of prior cardiac workup. His coronary risk factors are noted for the hypertension, hyperlipidemia and diabetes mellitus. He stopped smoking 3 years ago. MEDICATIONS: Medications include: 1. Metformin 1 gram daily. 2. Lamictal. 3. Catapres 0.1 mg twice a day. 4. Zoloft 50 mg daily. 5. Metoprolol tartrate 25 mg twice a day. 6. Insulin. 7. Furosemide 40 mg twice a day. 8. Lipitor 80 mg daily. 9. Alogliptin 25 mg daily. 10.Xanax. REVIEW OF SYSTEMS: RESPIRATORY SYSTEM: Had dyspnea on exertion. Occasional cough. No wheezing. He denies any history of documented obstructive coronary artery disease. GI SYSTEM: No recent GI bleeding. No peptic ulcer disease. SYSTEM: No dysuria or hematuria. NERVOUS SYSTEM: No stroke or seizure. PHYSICAL EXAMINATION: He is a 58-year-old male, alert, oriented, in no apparent distress. Blood pressure running in the 120s to 160 with a heart rate in the 70s. HEAD: Normocephalic. Eyes: Sclerae anicteric. NECK: No bruit. LUNGS: Decreased breath sounds, more noted at the bases. No wheezes. HEART: Regular rate and rhythm. S1, S2. No S3, with a systolic murmur. No diastolic murmur. No rub. ABDOMEN: Soft, obese, nontender. Positive bowel sounds. No organomegaly EXTREMITIES: Plus 3 edema bilaterally with decreased distant pulses with amputated left big toe. There is scrotal edema. LAB DATA: EKG reveals sinus mechanism with nonspecific ST-T wave changes. Chest x-ray raised the possibility of pneumonia on the right lower lobe. He had a scrotal ultrasound that revealed prominent bilateral scrotal skin thickening with no other problems. Hemoglobin of 9.2. BUN and creatinine of 61 and 1.87. Potassium 5.1. Troponin 0.066. NT-proBNP of 5210. During his last admission, his AST and ALT were elevated. IMPRESSION: 1. Symptoms of progressive dyspnea and peripheral edema consistent with congestive heart failure. The status of his left ventricular systolic function is not available. 2. Gangrenous toe. 3. Possible pneumonia. 4. History of hypertension. 5. Hyperlipidemia. 6. Diabetes mellitus. 7. Prior history of suicidal attempt. 8. History of noncompliance, according to the records. 9. Renal failure. 10.Anemia. RECOMMENDATIONS: From the cardiac standpoint, I will obtain an echocardiogram with Doppler to evaluate the left ventricular systolic function. I will start him on IV Lasix. Will obtain an evaluation by the nephrology service. I will start him on hydralazine in addition to his beta erika. Depending on his progress, further recommendations will be made. The elevation of the troponin does not reflect any acute coronary syndrome and is most likely related to the renal failure and the heart failure. Thank you for this consult. Will follow with you. PRABHAKAR / ALYCIAN: [id number] /
--- NOTE | 2019-01-29 18:18 | CONS ---
CONSULTATION PULMONARY/CRITICAL CARE CONSULTATION: This is a 58-year-old male seen in the ER by one of the ER physicians and one of the physician's assistants. He is a 58-year-old male who apparently presents for scrotal edema. He has a history of insulin-dependent diabetes mellitus, hyperlipidemia, hypertension, bipolar disorder and a recent suicide attempt. The patient was recently in the hospital and states that everything has deteriorated with him since . He apparently tried to commit suicide by slitting his left wrist. He was apparently admitted to the hospital and then transferred over to the psych unit. In addition, on the previous admission the patient apparently was found to have gangrene of his left great toe and that was amputated as well as the small toe of the left foot. I believe that was done by Orthopedics and also by Vascular Surgery. Anyway, after that hospitalization the patient was discharged home and has been living with his parents. The patient apparently was seen recently at the [facility] and prescribed some psychiatric medications for his bipolar disorder. His usual provider is Ana Edwards, who is a nurse practitioner at the [facility]. His major complaint on this admission includes severe scrotal edema and lower extremity edema. He does have some mild shortness of breath. The patient states that for this reason he came in to be evaluated. We were consulted because of possible right-sided pleural effusion, but looking at his chest x-ray, though he may have a right-sided pleural effusion, it is relatively small. He does have cardiomegaly and he may have some signs and symptoms of congestive heart failure. Currently he is lying in bed. He is almost flat. He is not wearing any supplemental oxygen. He has a very different affect. His parents are in the room with him. HOME MEDICATIONS: Reviewed. They include: 1. Lamictal. 2. Xanax. 3. NovoLog insulin. 4. Insulin Glargine. 5. Zoloft. 6. Metformin. 7. Alogliptin. 8. Lipitor. 9. Lasix. 10.Metoprolol. 11.Clonidine. ALLERGIES: DENIED. MEDICAL HISTORY: According to the medical record, his medical history includes: 1. Diabetes. 2. Hyperlipidemia. 3. Hypertension. 4. Fowler's palsy. 5. Bipolar disorder. 6. Insomnia. 7. Gangrene of the left toes with recent amputations of a large toe and a small toe. He denies any history of lung issues. He denies any history of previous heart attack or heart failure. He apparently was told in the ER that he might have heart failure. SURGICAL HISTORY: Includes, among other things: 1. Adenoidectomy. 2. Tonsillectomy. 3. Colonoscopy with benign polypectomies. 4. Recent amputation of the left great toe and left small toe. SOCIAL HISTORY: Positive for marijuana. Denies alcohol. He used to smoke cigarettes. Does not smoke currently. FAMILY HISTORY: Positive for diabetes mellitus and hyperlipidemia. REVIEW OF SYSTEMS: CONSTITUTIONAL: Negative. NEUROLOGIC: Negative. HEENT: Negative. CARDIOVASCULAR: Negative. PULMONARY: Shortness of breath. GI: Negative. : Negative. RHEUMATOLOGIC: Negative. IMMUNOLOGIC: Negative. ENDOCRINOLOGIC: Negative. DERMATOLOGIC: Negative. One of his biggest complaints is significant lower extremity edema as well as significant scrotal edema. PHYSICAL EXAMINATION: Current vital signs include temperature 98.5, heart rate 81, respiratory rate 20, blood pressure 141/86, mean 104. Room-air saturation 93% to 975. Appears in no acute distress. HEENT examination is grossly unremarkable. Mucous membranes are moist. There are no oral lesions. NECK: Supple. Full range of motion. No adenopathy or thyromegaly. Neck veins are flat. Cardiovascular examination reveals regular rhythm and rate. S1, S2 normal. No S3, S4. No murmur. LUNGS: Relatively clear breath sounds. We could not listen posteriorly because he could not lift his body up for us to be able to listen. ABDOMEN: Obese. Bowel sounds are heard. Extremities reveal significant edema. He has recently fresh amputations of the left great toe and left small toe. He has significant pitting and some erythema. There are some chronic venostasis changes. In addition, he has profound and significant scrotal edema. In addition, he looks like he has early cellulitis of the right lower extremity and cellulitis in the inguinal areas as well. Skin with the changes above. Neurologic examination is brief but nonfocal. LABS: Reviewed. White count 9.8, hemoglobin 9.2, hematocrit 29.7, platelet count 366,000. PT 12.7, INR 1.2, PTT 27.6. Sodium, potassium, chloride, CO2 all normal. Anion gap is 9. BUN and creatinine were 61 and 1.87. His troponin was 0.066. N-terminal proBNP was 5210, albumin 2.9. Urine is negative. EKG shows normal sinus rhythm with a right bundle branch block pattern. Chest x-ray suggests either small right pleural effusion or right lower lobe pneumonia with atelectasis. I suspect an effusion more than pneumonia; he is not really having any pneumonic symptoms. MEDICATIONS: Medications are reviewed. He is on: 1. Aspirin. 2. Atorvastatin. 3. Lasix. 4. Hydralazine. 5. Metoprolol. 6. IV at 0.9. ASSESSMENT: 1. Mild congestive heart failure with small right-sided pleural effusion, currently being evaluated by Cardiology. 2. No evidence of any intrinsic pulmonary disease at this time such as COPD/emphysema/chronic bronchial asthma/chronic bronchitis. 3. Diabetes mellitus. 4. Hypertension. 5. Hyperlipidemia. 6. Obesity. 7. Recent suicide attempt by slitting his left wrist. 8. Recent amputation of the left great toe and left small toe. 9. Possible cellulitis of right lower extremity. 10.Peripheral vascular occlusive disease. 11.Profound scrotal edema. 12.Rule out necrotizing fasciitis of the inguinal area and lower abdominal area, i.e., Dedra's gangrenosis. PLAN: The patient needs to be seen by Vascular Surgery and General Surgery. In addition, he needs an ID consultation. Will start the patient on some antibiotics. Additional recommendations and suggestions are forthcoming. Prognosis is guarded. The least of this patient's worries is his small right-sided pleural effusion. Additional recommendations and suggestions are forthcoming. MMODL / IJN: [id number] / OC
[2019-01-29 18:57] LABS: Iron Saturation 6.49 (15.00-50.00)
[2019-01-29 21:14] LABS: Glucose,Whole Blood 220 mg/dL (75-99)
--- NOTE | 2019-01-29 23:11 | WWPN ---
[facility] - PROGRESS NOTE This is a 58 -year-old gentleman who is known to me from the past. The patient came with infected wound, left foot big toe. For that, patient underwent partial toe amputation. The patient was on the psych floor because a history of suicidal attempt. The patient was sent home and now he has been readmitted with marked swelling of the both lower extremity including the scrotum. The patient has some blister formation noted on the dorsal aspect of her right foot and also discoloration of the right big toe. The patient's medical history includes: Insulin-dependent diabetes mellitus, acute kidney injury, under care of Nephrology and also patient was seen by Dr. Te Mustafa for Infectious Disease. The patient has marked swelling of the scrotum and abdominal wall and lower extremities. Left big toe has some wound dehiscence post big toe amputation and there is a blister formation noted on the right foot dorsal aspect. This patient will need to have some culture and sensitivity taken for of long-term antibiotic. If the patient needs any surgical intervention, I will discuss with Dr. Te Mustafa. If he needs surgical intervention we may be doing some wound debridement and I and D of the right foot. Follow up with you. Thank you for this consultation. MMODL / IJN: [id number] /
[2019-01-29] MEDS: ALPRAZolam 1 MG TAB PO SCH (23:13)
[2019-01-29] MEDS: ATORVASTATIN 80 MG TAB PO SCH (23:13)
--- NOTE | 2019-01-29 23:26 | P.CONS ---
History of Present Illness - Reason for Consult Consult date: 01/29/19 - Chief Complaint Increasing edema - History of Present Illness 58-year-old male with multiple medical troubles including diabetes peripheral vascular disease and is a relates to difficulties with mental illness in had a suicide attempt with injury to his left arm.The patient underwent surgical repair to the left wrist lacerations. He has been released from the psychiatric unit with improvement of his condition after medication changes. He overspending having increasing amounts of edema with progressive scrotal and lower extremity edema. He was in the emergency center last week with evidence of the scrotal edema. No evidence of any hydrocele or strangulation was noted was referred back to his primary care physician for his ongoing and worsening edema. The patient became extremely uncomfortable was having difficulties with urination due to the very swollen scrotum and pressure on the penis. Testicles he has now been admitted for acute on chronic renal failure, extensive edema including extensive scrotal edema. The patient has had worsening of the lower extremity edema and has developed blistering to the right lower extremity and has ongoing ulceration to the prior amputation site to the left great toe. With these issues the consult has been requested. The patient is seen with the vascular surgeon. The patient relates he is very uncomfortable because of the extensive scrotal swelling which fortunately there's been some improvement because of Machado catheter was placed. Patient does not believe he has had high- grade fever chills or rigors but feels very poorly. Review of Systems Patient feels very poorly he has shortness of breath extensive edema HEENT:Denies headache or acute visual change. Denies sinus or mouth discomforts . Denies neck stiffness or pain. Denies significant oral cavity pain. Denies difficulty on swallowing. Lungs: Positive shortness of breath minimal coughand production or hemoptysis Cardiovascular: Does not have chest pain but has shortness of breath, has dyspnea on exertion has orthopnea but no syncope Gastrointestinal:Denies nausea, vomiting, diarrhea, constipation, hematemesis, melena, hematochezia. No no significant change of bowel habit noticed. Musculoskeletal: denies significant myalgias or arthralgias. No new joint swelling. Denies new back pain. Skin: Worsening lower extremities increasing edema and blistering Neuro: Denies headache or visual change. Denies any new onset weakness or difficulty with ambulation. Denies falls or seizures. 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 History of Any Multi-Drug Resistant Organisms: None Reported Past Surgical History: Adenoidectomy, Tonsillectomy Additional Past Surgical History / Comment(s): L great toe amputation, L 5th toe amputation, L writst laceration repair, colonoscopy with benign polypectomies Past Anesthesia/Blood Transfusion Reactions: No Reported Reaction Past Psychological History: Anxiety, Bipolar, Depression Additional Psychological History / Comment(s): Pt resides with his parents. He currently is using a walker. He normally can drive. He has had a recent suicide attempt by cutting L wrist and was admitted to [facility]. He states he no longer feels suicidal. Smoking Status: Former smoker Past Alcohol Use History: None Reported Additional Past Alcohol Use History / Comment(s): Pt started smoking in 1975 and quit in 2016. He states he did relapse for a couple months once since quitting. Past Drug Use History: Marijuana Additional Drug Use History / Comment(s): Pt states he quit smoking marijuana and that he has not smoked marijuana in 4 months. - Past Family History Father Family Medical History: Diabetes Mellitus Additional Family Medical History / Comment(s): Father had gallbladder disease. He is 77yrs old. Mother Family Medical History: Hyperlipidemia Medications and Allergies Home Medications and Allergies Comment(s): Current Medications Alprazolam (Xanax) 1 mg PO DAILY [facility] Last Admin: 01/29/19 23:13 Dose: 1 mg Documented by: Aspirin (Aspirin) 81 mg PO DAILY [facility] Atorvastatin Calcium (Lipitor) 80 mg PO HS [facility] Last Admin: 01/29/19 23:13 Dose: 80 mg Documented by: Clonidine (Catapres) 0.1 mg PO BID [facility] Hydralazine HCl (Apresoline) 25 mg PO BID [facility] Last Admin: 01/29/19 21:59 Dose: 25 mg Documented by: Furosemide 100 mg/ Sodium (Chloride) 100 mls @ 10 mls/hr IV .Q10H [facility] Last Admin: 01/29/19 23:13 Dose: 10 mg/hr, 10 mls/hr Documented by: Cefepime HCl 2 gm/ Sodium (Chloride) 100 mls @ 200 mls/hr IVPB Q8HR [facility] Last Admin: 01/29/19 23:13 Dose: 200 mls/hr Documented by: Insulin Aspart (Novolog) 0 unit SQ ACHS [facility]; Protocol Last Admin: 01/29/19 21:59 Dose: 4 unit Documented by: Insulin Detemir (Levemir) 35 unit SQ DAILY [facility] Lamotrigine (Lamictal) 100 mg PO HS@2100 [facility] Metoprolol Tartrate (Lopressor) 25 mg PO BID [facility] Last Admin: 01/29/19 21:59 Dose: 25 mg Documented by: Sertraline HCl (Zoloft) 50 mg PO DAILY [facility] Home Medications Medication Instructions Recorded Confirmed Type Alogliptin Benzoate [Alogliptin] 25 mg PO DAILY 30 Days #30 tablet 01/19/19 01/29/19 Rx Atorvastatin [Lipitor] 80 mg PO HS 30 Days #30 tab 01/19/19 01/29/19 Rx Furosemide [Lasix] 40 mg PO BID #14 tablet 01/19/19 01/29/19 Rx Metoprolol Tartrate [Lopressor] 25 mg PO BID 30 Days #60 tab 01/19/19 01/29/19 Rx cloNIDine HCL [Catapres] 0.1 mg PO BID 30 Days #60 tab 01/19/19 01/29/19 Rx lamoTRIgine [LaMICtal] 100 mg PO HS@2100 01/20/19 01/29/19 History ALPRAZolam [Xanax] 1 mg PO DAILY 01/29/19 01/29/19 History INSULIN ASPART (NovoLOG) [NovoLOG 5 unit SQ AC-SUPPER 01/29/19 01/29/19 History (formulary)] Insulin Glargine,Hum.rec.anlog 35 unit SQ DAILY 01/29/19 01/29/19 History [Lantus Solostar] Sertraline HCl [Zoloft] 50 mg PO DAILY 01/29/19 01/29/19 History metFORMIN HCL 1,000 mg PO BID 01/29/19 01/29/19 History Allergies Allergy/AdvReac Type Severity Reaction Status Date / Time No Known Allergies Allergy Verified 01/29/19 08:39 Physical Exam Vitals: Vital Signs Temp Pulse Pulse Resp BP BP Pulse Ox 01/29/19 15:00 80 01/29/19 14:29 98.5 F 85 20 141/86 93 L 01/29/19 14:10 98.1 F 81 20 126/75 95 01/29/19 13:15 82 18 107/65 97 01/29/19 11:30 97.8 F 78 16 166/81 98 01/29/19 10:05 82 16 115/74 98 01/29/19 08:09 98.6 F 79 16 111/75 96 Intake and Output 01/29/19 01/29/19 01/30/19 14:59 22:59 06:59 Intake Total 1680 74.667 Output Total 700 1200 Balance -700 480 74.667 Intake: Intake, IV Titration 74.667 Amount Furosemide 100 mg In 74.667 Sodium Chloride 0.9% 90 ml @ 10 MG/HR 10 mls/hr IV .Q10H [facility] Rx#: [id number] Oral 1680 Output: Urine 700 1200 Uretheral (Machado) 700 Other: Voiding Method Indwelling Catheter # Voids 1 Weight 120.202 kg Obese 58-year-old male who is a some mild shortness of breath at rest and is very anxious because of his significant swelling and edema. HEENT: Anicteric conjunctiva are pink and moist nasal mucosa grossly intact without significant lesions, there is no thrush. Neck: The neck is supple without significant lymphadenopathy or thyromegaly. Lungs: Symmetrical air entry is noted basilar crackles are noted expiratory wheezing is heard no bronchial sounds dullness or egophony Heart: Irregular with a positive S4 no murmur click or rub PMI is nondisplaced Abdomen: Obese Positive bowel sounds soft and nontender without palpable masses or organomegaly. There was no guarding or rebound. Extremities: The upper extremities have no open lesions IV site is intact. Lower extremities show evidence of the extensive edema is evidence of anasarca with edema up to the abdominal wall and evidence of the extensive scrotal edema. There is no evidence of any skin breakdown at this time. Machado catheter is in place which patient relates is given him significant relief of discomfort With edema right foot is developed multiple blisters which cultures are obtained. The ulceration to left great toe status post the distal amputation is noted. Neuro: Awake alert oriented to person place and time. There are no acute new gross focal sensory motor deficits. Results CBC & Chem 7: 01/29/19 08:48 01/29/19 08:48 Labs: Abnormal Lab Results - Last 24 Hours (Table) 01/29/19 01/29/19 01/29/19 Range/Units 08:48 08:48 08:48 RBC 3.28 L (4.30-5.90) m/uL Hgb 9.2 L (13.0-17.5) gm/dL Hct 29.7 L (39.0-53.0) % MCHC 30.8 L (31.0-37.0) g/dL RDW 15.8 H (11.5-15.5) % Neutrophils # 7.9 H (1.3-7.7) k/uL Lymphocytes # 0.7 L (1.0-4.8) k/uL PT 12.7 H (9.0-12.0) sec INR 1.2 H (<1.2) BUN 61 H (9-20) mg/dL Creatinine 1.87 H (0.66-1.25) mg/dL Glucose 104 H (74-99) mg/dL POC Glucose (mg/dL) (75-99) mg/dL Hemoglobin A1c (4.0-6.0) % Iron (65-175) ug/dL Iron Saturation (15.00-50.00) Alkaline Phosphatase 154 H (38-126) U/L Troponin I (0.000-0.034) ng/mL Total Protein 6.0 L (6.3-8.2) g/dL Albumin 2.9 L (3.5-5.0) g/dL Urine Protein (Negative) 01/29/19 01/29/19 01/29/19 Range/Units 08:48 08:48 09:01 RBC (4.30-5.90) m/uL Hgb (13.0-17.5) gm/dL Hct (39.0-53.0) % MCHC (31.0-37.0) g/dL RDW (11.5-15.5) % Neutrophils # (1.3-7.7) k/uL Lymphocytes # (1.0-4.8) k/uL PT (9.0-12.0) sec INR (<1.2) BUN (9-20) mg/dL Creatinine (0.66-1.25) mg/dL Glucose (74-99) mg/dL POC Glucose (mg/dL) (75-99) mg/dL Hemoglobin A1c 8.0 H (4.0-6.0) % Iron (65-175) ug/dL Iron Saturation (15.00-50.00) Alkaline Phosphatase (38-126) U/L Troponin I 0.066 H* (0.000-0.034) ng/mL Total Protein (6.3-8.2) g/dL Albumin (3.5-5.0) g/dL Urine Protein Trace H (Negative) 01/29/19 01/29/19 01/29/19 Range/Units 13:18 14:35 14:35 RBC (4.30-5.90) m/uL Hgb (13.0-17.5) gm/dL Hct (39.0-53.0) % MCHC (31.0-37.0) g/dL RDW (11.5-15.5) % Neutrophils # (1.3-7.7) k/uL Lymphocytes # (1.0-4.8) k/uL PT (9.0-12.0) sec INR (<1.2) BUN (9-20) mg/dL Creatinine (0.66-1.25) mg/dL Glucose (74-99) mg/dL POC Glucose (mg/dL) 109 H (75-99) mg/dL Hemoglobin A1c (4.0-6.0) % Iron 20 L (65-175) ug/dL Iron Saturation 6.49 L (15.00-50.00) Alkaline Phosphatase (38-126) U/L Troponin I 0.064 H* (0.000-0.034) ng/mL Total Protein (6.3-8.2) g/dL Albumin (3.5-5.0) g/dL Urine Protein (Negative) 01/29/19 01/29/19 01/29/19 Range/Units 16:22 20:28 21:12 RBC (4.30-5.90) m/uL Hgb (13.0-17.5) gm/dL Hct (39.0-53.0) % MCHC (31.0-37.0) g/dL RDW (11.5-15.5) % Neutrophils # (1.3-7.7) k/uL Lymphocytes # (1.0-4.8) k/uL PT (9.0-12.0) sec INR (<1.2) BUN (9-20) mg/dL Creatinine (0.66-1.25) mg/dL Glucose (74-99) mg/dL POC Glucose (mg/dL) 154 H 220 H (75-99) mg/dL Hemoglobin A1c (4.0-6.0) % Iron (65-175) ug/dL Iron Saturation (15.00-50.00) Alkaline Phosphatase (38-126) U/L Troponin I 0.054 H* (0.000-0.034) ng/mL Total Protein (6.3-8.2) g/dL Albumin (3.5-5.0) g/dL Urine Protein (Negative) Laboratory Results WBC 9.8 k/uL (3.8-10.6) 01/29/19 08:48 RBC 3.28 m/uL (4.30-5.90) L 01/29/19 08:48 Hgb 9.2 gm/dL (13.0-17.5) L 01/29/19 08:48 Hct 29.7 % (39.0-53.0) L 01/29/19 08:48 MCV 90.6 fL (80.0-100.0) D 01/29/19 08:48 MCH 27.9 pg (25.0-35.0) 01/29/19 08:48 MCHC 30.8 g/dL (31.0-37.0) L 01/29/19 08:48 RDW 15.8 % (11.5-15.5) H 01/29/19 08:48 Plt Count 366 k/uL (150-450) 01/29/19 08:48 Neutrophils % 80 % 01/29/19 08:48 Lymphocytes % 7 % 01/29/19 08:48 Monocytes % 7 % 01/29/19 08:48 Eosinophils % 4 % 01/29/19 08:48 Basophils % 0 % 01/29/19 08:48 Neutrophils # 7.9 k/uL (1.3-7.7) H 01/29/19 08:48 Lymphocytes # 0.7 k/uL (1.0-4.8) L 01/29/19 08:48 Monocytes # 0.7 k/uL (0-1.0) 01/29/19 08:48 Eosinophils # 0.4 k/uL (0-0.7) 01/29/19 08:48 Basophils # 0.0 k/uL (0-0.2) 01/29/19 08:48 Hypochromasia Marked 01/29/19 08:48 Poikilocytosis Moderate 01/29/19 08:48 PT 12.7 sec (9.0-12.0) H 01/29/19 08:48 INR 1.2 (<1.2) H 01/29/19 08:48 APTT 27.6 sec (22.0-30.0) 01/29/19 08:48 Sodium 137 mmol/L (137-145) 01/29/19 08:48 Potassium 5.1 mmol/L (3.5-5.1) 01/29/19 08:48 Chloride 104 mmol/L (98-107) 01/29/19 08:48 Carbon Dioxide 24 mmol/L (22-30) 01/29/19 08:48 Anion Gap 9 mmol/L 01/29/19 08:48 BUN 61 mg/dL (9-20) H 01/29/19 08:48 Creatinine 1.87 mg/dL (0.66-1.25) H 01/29/19 08:48 Est GFR (CKD-EPI)AfAm 45 (>60 ml/min/1.73 sqM) 01/29/19 08:48 Est GFR (CKD-EPI)NonAf 39 (>60 ml/min/1.73 sqM) 01/29/19 08:48 Glucose 104 mg/dL (74-99) H 01/29/19 08:48 POC Glucose (mg/dL) 220 mg/dL (75-99) H 01/29/19 21:12 POC Glu [place] 01/29/19 21:[address] Glu mg/dL 183 01/29/19 08:48 Hemoglobin A1c 8.0 % (4.0-6.0) H 01/29/19 08:48 Calcium 8.5 mg/dL (8.4-10.2) 01/29/19 08:48 Magnesium 1.8 mg/dL (1.6-2.3) 01/29/19 08:48 Iron 20 ug/dL (65-175) L 01/29/19 14:35 TIBC 308 ug/dL (228-460) 01/29/19 14:35 Iron Saturation 6.49 (15.00-50.00) L 01/29/19 14:35 Ferritin 67.7 ng/mL (22.0-322.0) 01/29/19 14:35 Total Bilirubin 0.6 mg/dL (0.2-1.3) 01/29/19 08:48 AST 21 U/L (17-59) 01/29/19 08:48 ALT 60 U/L (21-72) 01/29/19 08:48 Alkaline Phosphatase 154 U/L (38-126) H 01/29/19 08:48 Troponin I 0.054 ng/mL (0.000-0.034) H* 01/29/19 20:28 NT-Pro-B Natriuret Pep 5210 pg/mL 01/29/19 08:48 Total Protein 6.0 g/dL (6.3-8.2) L 01/29/19 08:48 Albumin 2.9 g/dL (3.5-5.0) L 01/29/19 08:48 Urine Color Yellow 01/29/19 09:01 Urine Appearance Clear (Clear) 01/29/19 09:01 Urine pH 5.0 (5.0-8.0) 01/29/19 09:01 Ur Specific [place] 1.012 (1.001-1.035) 01/29/19 09:01 Urine Protein Trace (Negative) H 01/29/19 09:01 Urine Glucose (UA) Negative (Negative) 01/29/19 09:01 Urine Ketones Negative (Negative) 01/29/19 09:01 Urine Blood Negative (Negative) 01/29/19 09:01 Urine Nitrite Negative (Negative) 01/29/19 09:01 Urine Bilirubin Negative (Negative) 01/29/19 09:01 Urine Urobilinogen <2.0 mg/dL (<2.0) 01/29/19 09:01 Ur Leukocyte Esterase Negative (Negative) 01/29/19 09:01 Microbiology 01/29/19 17:30 Foot - Left Wound Culture - Preliminary Assessment and Plan (1) CHF (congestive heart failure) Current Visit: Yes Status: Acute Code(s): I50.9 - HEART FAILURE, UNSPECIFIED SNOMED Code(s): 75141570 (2) SOB (shortness of breath) Current Visit: Yes Status: Acute Code(s): R06.02 - SHORTNESS OF BREATH SNOMED Code(s): 737012265 (3) Scrotal edema Current Visit: No Status: Acute Code(s): N50.89 - OTHER SPECIFIED DISORDERS OF THE MALE GENITAL ORGANS SNOMED Code(s): 22476788 (4) Laceration of left wrist Current Visit: No Status: Acute Code(s): S61.512A - LACERATION WITHOUT FOREIGN BODY OF LEFT WRIST, INIT ENCNTR SNOMED Code(s): 27604231270282758 (5) Foot ulcer due to secondary DM Narrative/Plan: 58-year-old male presents to Hospital feeling very poorly. He said extensive edema that has been worsening over many days. His developed extensive scrotal edema to the with urination and lower extremity edema is not resulting in blisters on the right foot with some ulceration. The patient has not been receiving care to the left great toe amputation site which has evidence of some eschar. The patient is been seen by the vascular surgeon no plans for surgical intervention at this time. Therahoney to the left great toe as planned. Absorptive dressing to the right foot and rapid place for now. Cultures obtained from the blister fluid. Antibiotic therapy is initiate with cefepime to give us coverage for his prior baseline pathogens including MSSA. He does not have a history of MRSA. To the scrotum the zinc product can be applied to prevent any further discomforts would also help with some of the irritation is having from the extensive scrotal edema. Therahoney product will also be applied to the left wrist laceration site that is evidence slough. We'll expect some improvement with alteration of the wound care to the wrist Current Visit: Yes Status: Acute Code(s): E13.621 - OTHER SPECIFIED DIABETES MELLITUS WITH FOOT ULCER; L97.509 - NON-PRESSURE CHRONIC ULCER OTH PRT UNSP FOOT W UNSP SEVERITY SNOMED Code(s): 1159777
[2019-01-29] MEDS: ACETAMINOPHEN TAB 325 MG TAB PO PRN (23:55)
[2019-01-30 00:19] LABS: Anisocytosis Slight; Basophils % (A) 0 %; Eosinophils # (A) 0.4 k/uL (0-0.7); Eosinophils % (A) 4 %; HCT 29.5 % (39.0-53.0); HGB 8.5 gm/dL (13.0-17.5); Hypochromasia Marked; Lymphocytes # (A) 0.6 k/uL (1.0-4.8); Lymphocytes % (A) 6 %; MCH 26.2 pg (25.0-35.0); MCHC 28.9 g/dL (31.0-37.0); MCV 90.6 fL (80.0-100.0); Mean Platelet Volume 7.1; Monocytes # (A) 0.6 k/uL (0-1.0); Monocytes % (A) 7 %; Neutrophils # (A) 7.7 k/uL (1.3-7.7); Neutrophils % (A) 81 %; Platelet Count 384 k/uL (150-450); Poikilocytosis Slight; RBC 3.26 m/uL (4.30-5.90); RDW 16.3 % (11.5-15.5); WBC 9.5 k/uL (3.8-10.6)
[2019-01-30 00:29] LABS: Calcium 8.3 mg/dL (8.4-10.2); Magnesium 1.7 mg/dL (1.6-2.3); Potassium 4.2 mmol/L (3.5-5.1)
[2019-01-30 06:23] LABS: Glucose,Whole Blood 184 mg/dL (75-99)
[2019-01-30 06:28] LABS: Anisocytosis Slight; Basophils % (A) 0 %; Eosinophils # (A) 0.4 k/uL (0-0.7); Eosinophils % (A) 4 %; HCT 29.3 % (39.0-53.0); HGB 8.8 gm/dL (13.0-17.5); Hypochromasia Marked; Lymphocytes # (A) 0.8 k/uL (1.0-4.8); Lymphocytes % (A) 8 %; MCH 26.8 pg (25.0-35.0); MCHC 29.9 g/dL (31.0-37.0); MCV 89.8 fL (80.0-100.0); Monocytes # (A) 0.7 k/uL (0-1.0); Monocytes % (A) 7 %; Neutrophils # (A) 7.8 k/uL (1.3-7.7); Neutrophils % (A) 79 %; Platelet Count 401 k/uL (150-450); Poikilocytosis Slight; RBC 3.27 m/uL (4.30-5.90); RDW 16.2 % (11.5-15.5); WBC 9.8 k/uL (3.8-10.6)
[2019-01-30 06:47] LABS: Calcium 8.1 mg/dL (8.4-10.2); Magnesium 1.7 mg/dL (1.6-2.3); Potassium 4.3 mmol/L (3.5-5.1)
[2019-01-30] MEDS: INSULIN ASPART (NovoLOG) 100 UNIT/ML VIAL SQ SCH ×4 (06:52→21:52)
[2019-01-30] MEDS: CEFEPIME 2 GM in SODIUM CHLORIDE 0.9% 100 ML IVPB SCH ×2 (07:09→17:46)
--- NOTE | 2019-01-30 08:27 | ECHOF ---
Referral Reason:CHF MEASUREMENTS -------- HEIGHT: 182.9 cm WEIGHT: 120.2 kg BP: 166/91 RVIDd: 3.1 cm (< 3.3) IVSd: 1.6 cm (0.6 - 1.1) LVIDd: 4.1 cm (3.9 - 5.3) LVPWd: 1.8 cm (0.6 - 1.1) IVSs: 1.9 cm LVIDs: 2.4 cm LVPWs: 2.1 cm LAESV Index (A-L): 26.05 ml/m Ao Diam: 3.3 cm (2.0 - 3.7) AV Cusp: 1.5 cm (1.5 - 2.6) LA Diam: 3.2 cm (2.7 - 3.8) MV EXCURSION: 14.056 mm (> 18.000) MV EF SLOPE: 79 mm/s (70 - 150) EPSS: 1.2 cm MV E Tre: 1.20 m/s MV DecT: 182 ms MV A Tre: 0.84 m/s MV E/A Ratio: 1.43 RAP: 5.00 mmHg RVSP: 30.47 mmHg FINDINGS -------- Sinus rhythm. This was a technically difficult study with suboptimal views. The left ventricular size is normal. There is moderate concentric left ventricular hypertrophy. O verall left ventricular systolic function is low-normal with, an EF between 50 - 55 %. The right ventricle is normal in size. Normal LA size by volume 22+/-6 ml/m2. The right atrial size is normal. Lumason used Aortic valve is trileaflet and is mildly thickened. The mitral valve leaflets are mildly thickened. Mild mitral annular calcification present. There is trace mitral regurgitation. Mild tricuspid regurgitation present. There is no evidence of pulmonary hypertension. The right v entricular systolic pressure, as measured by Doppler, is 30.47mmHg. Trace/mild (physiologic) pulmonic regurgitation. The aortic root size is normal. IVC Not well visulized. There is no pericardial effusion. CONCLUSIONS -------- 1. Sinus rhythm. 2. This was a technically difficult study with suboptimal views. 3. The left ventricular size is normal. 4. There is moderate concentric left ventricular hypertrophy. 5. Overall left ventricular systolic function is low-normal with, an EF between 50 - 55 %. 6. The right ventricle is normal in size. 7. Normal LA size by volume 22+/-6 ml/m2. 8. The right atrial size is normal. 9. Lumason used 10. Aortic valve is trileaflet and is mildly thickened. 11. The mitral valve leaflets are mildly thickened. 12. Mild mitral annular calcification present. 13. There is trace mitral regurgitation. 14. Mild tricuspid regurgitation present. 15. There is no evidence of pulmonary hypertension. 16. The right ventricular systolic pressure, as measured by Doppler, is 30.47mmHg. 17. Trace/mild (physiologic) pulmonic regurgitation. 18. The aortic root size is normal. 19. IVC Not well visulized. 20. There is no pericardial effusion. [employer] COUNTER PERSON: Marie Houston RDCS
[2019-01-30] MEDS ORDERED: METOPROLOL TARTRATE 25 MG TAB PO SCH (09:00)
[2019-01-30] MEDS ORDERED: ATORVASTATIN 80 MG TAB PO SCH (09:00)
[2019-01-30] MEDS ORDERED: INSULIN DETEMIR (LEVEMIR) 100 UNIT/ML SYR SQ SCH (09:00)
[2019-01-30] MEDS ORDERED: cloNIDine HCL 0.1 MG TAB PO SCH (09:00)
[2019-01-30] MEDS: ASPIRIN 81 MG PO SCH (09:11)
[2019-01-30] MEDS: SERTRALINE 50 MG TAB PO SCH (09:12)
[2019-01-30] MEDS: METOPROLOL TARTRATE 25 MG TAB PO SCH ×2 (09:12→21:52)
[2019-01-30] MEDS: hydrALAZINE HCL 25 MG TAB PO SCH (09:12)
[2019-01-30] MEDS: ALPRAZolam 1 MG TAB PO SCH (09:12)
--- NOTE | 2019-01-30 11:23 | P.PN ---
Subjective Patient is seen in follow-up for acute kidney injury. Renal function is stable with creatinine at 1.69 today. Patient is still quite edematous. He is maintained on Lasix drip at 10 mL an hour. Urine output documented at 2.7 L in the last 24 hours. Denies chest pain or shortness of breath. No vomiting or diarrhea. Vital signs are stable. General: The patient appeared well nourished and normally developed. HEENT: Head exam is unremarkable. Neck is without jugular venous distension. LUNGS: Breath sounds decreased. HEART: Rate and Rhythm are regular. First and second heart sounds normal. No murmurs, rubs or gallops. ABDOMEN: Abdominal exam reveals normal bowel sounds. Non-tender and non- distended. EXTREMITITES: 1+ edema. Severe scrotal edema noted. Objective - Vital Signs Vital signs: Vital Signs Temp 98.0 F 01/30/19 07:11 Pulse 77 01/30/19 05:11 Resp 19 01/30/19 07:11 BP 123/73 01/30/19 07:11 Pulse Ox 99 01/30/19 07:11 Intake & Output 01/29/19 01/30/19 01/30/19 18:59 06:59 18:59 Intake Total 480 1274.667 480 Output Total 1400 1300 825 Balance -920 -25.333 -345 Weight 120.202 kg 139 kg Intake: Intake, IV Titration 74.667 Amount Furosemide 100 mg In 74.667 Sodium Chloride 0.9% 90 ml @ 10 MG/HR 10 mls/hr IV .Q10H [facility] Rx#: [id number] Oral 480 1200 480 Output: Urine 1400 1300 825 Uretheral (Machado) 700 Other: Voiding Method Indwelling Catheter Indwelling Catheter # Voids 1 - Labs CBC & Chem 7: 01/30/19 05:49 01/30/19 05:49 Labs: Abnormal Lab Results - Last 24 Hours (Table) 01/29/19 01/29/19 01/29/19 Range/Units 08:48 13:18 14:35 RBC (4.30-5.90) m/uL Hgb (13.0-17.5) gm/dL Hct (39.0-53.0) % MCHC (31.0-37.0) g/dL RDW (11.5-15.5) % Neutrophils # (1.3-7.7) k/uL Lymphocytes # (1.0-4.8) k/uL Sodium (137-145) mmol/L BUN (9-20) mg/dL Creatinine (0.66-1.25) mg/dL Glucose (74-99) mg/dL POC Glucose (mg/dL) 109 H (75-99) mg/dL Hemoglobin A1c 8.0 H (4.0-6.0) % Calcium (8.4-10.2) mg/dL Iron (65-175) ug/dL Iron Saturation (15.00-50.00) Troponin I 0.064 H* (0.000-0.034) ng/mL 01/29/19 01/29/19 01/29/19 Range/Units 14:35 16:22 20:28 RBC (4.30-5.90) m/uL Hgb (13.0-17.5) gm/dL Hct (39.0-53.0) % MCHC (31.0-37.0) g/dL RDW (11.5-15.5) % Neutrophils # (1.3-7.7) k/uL Lymphocytes # (1.0-4.8) k/uL Sodium (137-145) mmol/L BUN (9-20) mg/dL Creatinine (0.66-1.25) mg/dL Glucose (74-99) mg/dL POC Glucose (mg/dL) 154 H (75-99) mg/dL Hemoglobin A1c (4.0-6.0) % Calcium (8.4-10.2) mg/dL Iron 20 L (65-175) ug/dL Iron Saturation 6.49 L (15.00-50.00) Troponin I 0.054 H* (0.000-0.034) ng/mL 01/29/19 01/29/19 01/29/19 Range/Units 21:12 23:46 23:46 RBC 3.26 L (4.30-5.90) m/uL Hgb 8.5 L (13.0-17.5) gm/dL Hct 29.5 L (39.0-53.0) % MCHC 28.9 L (31.0-37.0) g/dL RDW 16.3 H (11.5-15.5) % Neutrophils # (1.3-7.7) k/uL Lymphocytes # 0.6 L (1.0-4.8) k/uL Sodium 133 L (137-145) mmol/L BUN 57 H (9-20) mg/dL Creatinine 1.70 H (0.66-1.25) mg/dL Glucose 171 H (74-99) mg/dL POC Glucose (mg/dL) 220 H (75-99) mg/dL Hemoglobin A1c (4.0-6.0) % Calcium 8.3 L (8.4-10.2) mg/dL Iron (65-175) ug/dL Iron Saturation (15.00-50.00) Troponin I (0.000-0.034) ng/mL 01/30/19 01/30/19 01/30/19 Range/Units 05:49 05:49 06:21 RBC 3.27 L (4.30-5.90) m/uL Hgb 8.8 L (13.0-17.5) gm/dL Hct 29.3 L (39.0-53.0) % MCHC 29.9 L (31.0-37.0) g/dL RDW 16.2 H (11.5-15.5) % Neutrophils # 7.8 H (1.3-7.7) k/uL Lymphocytes # 0.8 L (1.0-4.8) k/uL Sodium 132 L (137-145) mmol/L BUN 57 H (9-20) mg/dL Creatinine 1.69 H (0.66-1.25) mg/dL Glucose 153 H (74-99) mg/dL POC Glucose (mg/dL) 184 H (75-99) mg/dL Hemoglobin A1c (4.0-6.0) % Calcium 8.1 L (8.4-10.2) mg/dL Iron (65-175) ug/dL Iron Saturation (15.00-50.00) Troponin I (0.000-0.034) ng/mL Microbiology - Last 24 Hours (Table) 01/29/19 17:30 Gram Stain - Preliminary Foot - Left Wound Culture - Preliminary Assessment and Plan Plan: Assessment: 1. Acute kidney injury mostly prerenal secondary to cardiorenal syndrome. Creatinine 1.87 on admission and is 1.69 today. Baseline creatinine near 1. UA is quite benign. Ultrasound from last month revealed no evidence of hydronephrosis. 2. Dyspnea secondary to volume overload. 3. Insulin-dependent diabetes mellitus. 4. Anemia. Severe iron deficiency noted. 5. Benign hypertension. 6. 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 7. Hypomagnesemia secondary to diuresis. 8. Diastolic CHF. Plan: Increase Lasix drip to 15 mL an hour. Add metolazone 5 mg daily. Low-salt diet and 1.5 L fluid restriction. Daily weights. Avoid nephrotoxins. IV Ferrlecit 3 doses. Replace magnesium. 2 g IV today. Repeat electrolytes in the morning.
[2019-01-30 11:36] LABS: Anisocytosis Slight; HCT 28.8 % (39.0-53.0); HGB 8.5 gm/dL (13.0-17.5); Hypochromasia Marked; MCH 26.5 pg (25.0-35.0); MCHC 29.4 g/dL (31.0-37.0); MCV 90.3 fL (80.0-100.0); Platelet Count 374 k/uL (150-450); Poikilocytosis Slight; RBC 3.19 m/uL (4.30-5.90); RDW 16.4 % (11.5-15.5); WBC 8.8 k/uL (3.8-10.6)
[2019-01-30 11:54] LABS: Glucose,Whole Blood 245 mg/dL (75-99)
[2019-01-30] MEDS: INSULIN DETEMIR (LEVEMIR) 100 UNIT/ML SYR SQ SCH (12:21)
--- NOTE | 2019-01-30 12:36 | P.PN ---
Subjective Progress Note Date: 01/30/19 Principal diagnosis: The patient is seen today 01/30/2019 in follow-up on the selective care unit. He is currently awake and alert in no acute distress. Laying flat in bed. Choco es any worsening shortness of breath, cough or congestion. Maintaining good O2 saturations in the upper 90s on 3 L/m per nasal cannula. Afebrile. Hemodynamically stable. Left foot wound culture pending. White count 8.8. Hemoglobin 8.5. Antibiotics in the form of cefepime. He is currently on a Lasix drip at 10 mg per hour. Remains in a negative balance. Objective - Vital Signs Vital signs: Vital Signs Temp 98.0 F 01/30/19 07:11 Pulse 77 01/30/19 05:11 Resp 19 01/30/19 07:11 BP 123/73 01/30/19 07:11 Pulse Ox 99 01/30/19 07:11 Intake & Output 01/29/19 01/30/19 01/30/19 18:59 06:59 18:59 Intake Total 480 1274.667 480 Output Total 1400 1300 825 Balance -920 -25.333 -345 Weight 120.202 kg 139 kg Intake: Intake, IV Titration 74.667 Amount Furosemide 100 mg In 74.667 Sodium Chloride 0.9% 90 ml @ 10 MG/HR 10 mls/hr IV .Q10H [facility] Rx#: [id number] Oral 480 1200 480 Output: Urine 1400 1300 825 Uretheral ([place]) 700 Other: Voiding Method Indwelling Catheter Indwelling Catheter # Voids 1 - Exam GENERAL EXAM: Pleasant 58-year-old gentleman. Alert, comfortable in no apparent distress. On 3 L nasal cannula. HEAD: Normocephalic. EYES: Normal reaction of pupils, equal size. NOSE: Clear with pink turbinates. THROAT: No erythema or exudates. NECK: No masses, no JVD. CHEST: No chest wall deformity. LUNGS: Equal air entry with crackles in the bilateral posterior bases. CVS: S1 and S2 normal with no audible murmur, regular rhythm. ABDOMEN: No hepatosplenomegaly, normal bowel sounds, no guarding or rigidity. SPINE: No scoliosis or deformity SKIN: No rashes CENTRAL NERVOUS SYSTEM: No focal deficits, tone is normal in all 4 extremities. EXTREMITIES: There is no peripheral edema. No clubbing, no cyanosis. Peripheral pulses are intact. - Labs CBC & Chem 7: 01/30/19 11:11 01/30/19 05:49 Labs: Abnormal Lab Results - Last 24 Hours (Table) 01/29/19 01/29/19 01/29/19 Range/Units 08:48 13:18 14:35 RBC (4.30-5.90) m/uL Hgb (13.0-17.5) gm/dL Hct (39.0-53.0) % MCHC (31.0-37.0) g/dL RDW (11.5-15.5) % Neutrophils # (1.3-7.7) k/uL Lymphocytes # (1.0-4.8) k/uL Sodium (137-145) mmol/L BUN (9-20) mg/dL Creatinine (0.66-1.25) mg/dL Glucose (74-99) mg/dL POC Glucose (mg/dL) 109 H (75-99) mg/dL Hemoglobin A1c 8.0 H (4.0-6.0) % Calcium (8.4-10.2) mg/dL Iron (65-175) ug/dL Iron Saturation (15.00-50.00) Troponin I 0.064 H* (0.000-0.034) ng/mL 01/29/19 01/29/19 01/29/19 Range/Units 14:35 16:22 20:28 RBC (4.30-5.90) m/uL Hgb (13.0-17.5) gm/dL Hct (39.0-53.0) % MCHC (31.0-37.0) g/dL RDW (11.5-15.5) % Neutrophils # (1.3-7.7) k/uL Lymphocytes # (1.0-4.8) k/uL Sodium (137-145) mmol/L BUN (9-20) mg/dL Creatinine (0.66-1.25) mg/dL Glucose (74-99) mg/dL POC Glucose (mg/dL) 154 H (75-99) mg/dL Hemoglobin A1c (4.0-6.0) % Calcium (8.4-10.2) mg/dL Iron 20 L (65-175) ug/dL Iron Saturation 6.49 L (15.00-50.00) Troponin I 0.054 H* (0.000-0.034) ng/mL 01/29/19 01/29/19 01/29/19 Range/Units 21:12 23:46 23:46 RBC 3.26 L (4.30-5.90) m/uL Hgb 8.5 L (13.0-17.5) gm/dL Hct 29.5 L (39.0-53.0) % MCHC 28.9 L (31.0-37.0) g/dL RDW 16.3 H (11.5-15.5) % Neutrophils # (1.3-7.7) k/uL Lymphocytes # 0.6 L (1.0-4.8) k/uL Sodium 133 L (137-145) mmol/L BUN 57 H (9-20) mg/dL Creatinine 1.70 H (0.66-1.25) mg/dL Glucose 171 H (74-99) mg/dL POC Glucose (mg/dL) 220 H (75-99) mg/dL Hemoglobin A1c (4.0-6.0) % Calcium 8.3 L (8.4-10.2) mg/dL Iron (65-175) ug/dL Iron Saturation (15.00-50.00) Troponin I (0.000-0.034) ng/mL 01/30/19 01/30/19 01/30/19 Range/Units 05:49 05:49 06:21 RBC 3.27 L (4.30-5.90) m/uL Hgb 8.8 L (13.0-17.5) gm/dL Hct 29.3 L (39.0-53.0) % MCHC 29.9 L (31.0-37.0) g/dL RDW 16.2 H (11.5-15.5) % Neutrophils # 7.8 H (1.3-7.7) k/uL Lymphocytes # 0.8 L (1.0-4.8) k/uL Sodium 132 L (137-145) mmol/L BUN 57 H (9-20) mg/dL Creatinine 1.69 H (0.66-1.25) mg/dL Glucose 153 H (74-99) mg/dL POC Glucose (mg/dL) 184 H (75-99) mg/dL Hemoglobin A1c (4.0-6.0) % Calcium 8.1 L (8.4-10.2) mg/dL Iron (65-175) ug/dL Iron Saturation (15.00-50.00) Troponin I (0.000-0.034) ng/mL 01/30/19 01/30/19 Range/Units 11:11 11:40 RBC 3.19 L (4.30-5.90) m/uL Hgb 8.5 L (13.0-17.5) gm/dL Hct 28.8 L (39.0-53.0) % MCHC 29.4 L (31.0-37.0) g/dL RDW 16.4 H (11.5-15.5) % Neutrophils # (1.3-7.7) k/uL Lymphocytes # (1.0-4.8) k/uL Sodium (137-145) mmol/L BUN (9-20) mg/dL Creatinine (0.66-1.25) mg/dL Glucose (74-99) mg/dL POC Glucose (mg/dL) 245 H (75-99) mg/dL Hemoglobin A1c (4.0-6.0) % Calcium (8.4-10.2) mg/dL Iron (65-175) ug/dL Iron Saturation (15.00-50.00) Troponin I (0.000-0.034) ng/mL Microbiology - Last 24 Hours (Table) 01/29/19 17:30 Gram Stain - Preliminary Foot - Left Wound Culture - Preliminary Assessment and Plan Assessment: Impression: #1 Acute exacerbation of diastolic congestive heart failure. Currently on a Lasix drip. #2 Hypertension. #3 Hyperlipidemia. #4 Morbid obesity. #5 Diabetes mellitus. #6 Recent suicide attempts by cutting his left wrist. #7 Recent amputation of the left great toe and left small toe. #8 Suspect cellulitis of the right lower extremity. #9 Peripheral vascular occlusive disease. #10 Profound scrotal edema. #11 Rule out necrotizing fasciitis of the inguinal area and lower abdominal area, Dedra's gangrenosis. Plan: The patient was seen and evaluated by Dr. Burkett. He is currently stable from the pulmonary standpoint. Diuretics per cardiology. We'll see the patient on as-needed basis. I, the cosigning physician, performed a history & physical examination of the patient. Lungs sounds crackles in the bilateral posterior bases. Maintaining good O2 saturations in the 90s on 3 L/m per nasal cannula. I discussed the assessment and plan of care with my nurse practitioner, Sandra Domingo. I attest to the above note as dictated by her.
[2019-01-30] MEDS: FUROSEMIDE 100 MG in SODIUM CHLORIDE 0.9% 90 ML IV SCH ×2 (13:07→16:21)
[2019-01-30] MEDS: METOLAZONE 5 MG TAB PO SCH (13:08)
--- NOTE | 2019-01-30 14:49 | P.PN ---
Subjective Progress Note Date: 01/30/19 01/30/2019 Patient seen in follow-up on the selective care unit. He is currently awake and alert in no acute distress. Laying flat in bed. Denies any worsening shortness of breath, cough or congestion. Maintaining good O2 saturations in the upper 90s on 3 L/m per nasal cannula. Afebrile. Hemodynamically stable. Left foot wound culture pending. White count 8.8. Hemoglobin 8.5. Antibiotics in the form of cefepime. He is currently on a Lasix drip at 10 mg per hour. Remains in a negative balance. Objective - Vital Signs Vital signs: Vital Signs Temp 98.1 F 01/30/19 09:35 Pulse 68 01/30/19 12:00 Resp 18 01/30/19 12:00 BP 128/74 01/30/19 12:00 Pulse Ox 99 01/30/19 12:00 Intake & Output 01/29/19 01/30/19 01/30/19 18:59 06:59 18:59 Intake Total 480 1274.667 580 Output Total 1400 1300 825 Balance -920 -25.333 -245 Weight 120.202 kg 139 kg 139 kg Intake: Intake, IV Titration 74.667 100 Amount Furosemide 100 mg In 74.667 100 Sodium Chloride 0.9% 90 ml @ 10 MG/HR 10 mls/hr IV .Q10H [facility] Rx#: [id number] Oral 480 1200 480 Output: Urine 1400 1300 825 Uretheral ([place]) 700 Other: Voiding Method Indwelling Catheter Indwelling Catheter Indwelling Catheter # Voids 1 - Exam PHYSICAL EXAMINATION: GENERAL: The patient is alert and oriented x3, not in any acute distress. Well developed, well nourished. HEENT: Pupils are round and equally reacting to light. EOMI. No scleral icterus. No conjunctival pallor. Normocephalic, atraumatic. No pharyngeal erythema. No thyromegaly. CARDIOVASCULAR: S1 and S2 present. No murmurs, rubs, or gallops. PULMONARY: Chest is clear to auscultation, no wheezing or crackles. ABDOMEN: Soft, nontender, nondistended, normoactive bowel sounds. No palpable organomegaly. MUSCULOSKELETAL: No joint swelling or deformity. EXTREMITIES: No cyanosis, clubbing, or pedal edema. NEUROLOGICAL: Gross neurological examination did not reveal any focal deficits. SKIN: No rashes. - Labs CBC & Chem 7: 01/30/19 11:11 01/30/19 05:49 Labs: Abnormal Lab Results - Last 24 Hours (Table) 01/29/19 01/29/19 01/29/19 Range/Units 08:48 14:35 14:35 RBC (4.30-5.90) m/uL Hgb (13.0-17.5) gm/dL Hct (39.0-53.0) % MCHC (31.0-37.0) g/dL RDW (11.5-15.5) % Neutrophils # (1.3-7.7) k/uL Lymphocytes # (1.0-4.8) k/uL Sodium (137-145) mmol/L BUN (9-20) mg/dL Creatinine (0.66-1.25) mg/dL Glucose (74-99) mg/dL POC Glucose (mg/dL) (75-99) mg/dL Hemoglobin A1c 8.0 H (4.0-6.0) % Calcium (8.4-10.2) mg/dL Iron 20 L (65-175) ug/dL Iron Saturation 6.49 L (15.00-50.00) Troponin I 0.064 H* (0.000-0.034) ng/mL 01/29/19 01/29/19 01/29/19 Range/Units 16:22 20:28 21:12 RBC (4.30-5.90) m/uL Hgb (13.0-17.5) gm/dL Hct (39.0-53.0) % MCHC (31.0-37.0) g/dL RDW (11.5-15.5) % Neutrophils # (1.3-7.7) k/uL Lymphocytes # (1.0-4.8) k/uL Sodium (137-145) mmol/L BUN (9-20) mg/dL Creatinine (0.66-1.25) mg/dL Glucose (74-99) mg/dL POC Glucose (mg/dL) 154 H 220 H (75-99) mg/dL Hemoglobin A1c (4.0-6.0) % Calcium (8.4-10.2) mg/dL Iron (65-175) ug/dL Iron Saturation (15.00-50.00) Troponin I 0.054 H* (0.000-0.034) ng/mL 01/29/19 01/29/19 01/30/19 Range/Units 23:46 23:46 05:49 RBC 3.26 L (4.30-5.90) m/uL Hgb 8.5 L (13.0-17.5) gm/dL Hct 29.5 L (39.0-53.0) % MCHC 28.9 L (31.0-37.0) g/dL RDW 16.3 H (11.5-15.5) % Neutrophils # (1.3-7.7) k/uL Lymphocytes # 0.6 L (1.0-4.8) k/uL Sodium 133 L 132 L (137-145) mmol/L BUN 57 H 57 H (9-20) mg/dL Creatinine 1.70 H 1.69 H (0.66-1.25) mg/dL Glucose 171 H 153 H (74-99) mg/dL POC Glucose (mg/dL) (75-99) mg/dL Hemoglobin A1c (4.0-6.0) % Calcium 8.3 L 8.1 L (8.4-10.2) mg/dL Iron (65-175) ug/dL Iron Saturation (15.00-50.00) Troponin I (0.000-0.034) ng/mL 01/30/19 01/30/19 01/30/19 Range/Units 05:49 06:21 11:11 RBC 3.27 L 3.19 L (4.30-5.90) m/uL Hgb 8.8 L 8.5 L (13.0-17.5) gm/dL Hct 29.3 L 28.8 L (39.0-53.0) % MCHC 29.9 L 29.4 L (31.0-37.0) g/dL RDW 16.2 H 16.4 H (11.5-15.5) % Neutrophils # 7.8 H (1.3-7.7) k/uL Lymphocytes # 0.8 L (1.0-4.8) k/uL Sodium (137-145) mmol/L BUN (9-20) mg/dL Creatinine (0.66-1.25) mg/dL Glucose (74-99) mg/dL POC Glucose (mg/dL) 184 H (75-99) mg/dL Hemoglobin A1c (4.0-6.0) % Calcium (8.4-10.2) mg/dL Iron (65-175) ug/dL Iron Saturation (15.00-50.00) Troponin I (0.000-0.034) ng/mL 01/30/19 Range/Units 11:40 RBC (4.30-5.90) m/uL Hgb (13.0-17.5) gm/dL Hct (39.0-53.0) % MCHC (31.0-37.0) g/dL RDW (11.5-15.5) % Neutrophils # (1.3-7.7) k/uL Lymphocytes # (1.0-4.8) k/uL Sodium (137-145) mmol/L BUN (9-20) mg/dL Creatinine (0.66-1.25) mg/dL Glucose (74-99) mg/dL POC Glucose (mg/dL) 245 H (75-99) mg/dL Hemoglobin A1c (4.0-6.0) % Calcium (8.4-10.2) mg/dL Iron (65-175) ug/dL Iron Saturation (15.00-50.00) Troponin I (0.000-0.034) ng/mL Microbiology - Last 24 Hours (Table) 01/29/19 17:30 Gram Stain - Preliminary Foot - Left Wound Culture - Preliminary Assessment and Plan Assessment: 1. Dyspnea; acute exacerbation CHF/ fluid overload secondary to cardiac renal syndrome - Patient is started on IV Lasix drip at a rate of 10 mils/hr per nephrology service - Recommendations are for low salt diet and 1.5 L fluid restriction - Echocardiogram is ordered and pending; await further recommendations from cardiology 2. Acute on chronic kidney disease; cardiorenal syndrome - Patient is recommended IV Lasix drip as above - We will monitor strict ANAYA's, daily weights, renal function and electrolytes; check iron studies - Avoid nephrotoxins and hypotension; nephrology is following 3. Elevated troponin; possibly secondary to worsening kidney disease versus acute coronary syndrome - We will plan to trend troponin and monitor EKG; 2-D echo is ordered - Further recommendations per cardiology 4. Hypertension; stable on metoprolol 25 mg twice a day and hydralazine 25 mg twice a day 5. Insulin-dependent diabetes; monitor Accu-Cheks every before meals and at bedtime with insulin sliding scale 6. Hyperlipidemia; Lipitor 80 mg by mouth daily at bedtime DVT prophylaxis; SCDs CODE STATUS; full code Time with Patient: Greater than 30
--- NOTE | 2019-01-30 15:08 | PN ---
PROGRESS NOTE Mr. Talbot is a 58-year-old male who presented with symptoms of worsening dyspnea and peripheral edema. He has a history of peripheral vascular disease, history of noncompliance in the past. He is feeling better this morning. His breathing is better. He continues to have the peripheral edema. He denies any dizziness or palpitation. He denies any nausea. He had an echocardiogram performed yesterday that showed an ejection fraction 50% to 55% with mild tricuspid regurgitation. He continues to be at this time on aspirin once a day, Lipitor 80 mg daily, clonidine 0.1 mg twice a day, IV Lasix drip, hydralazine 25 mg twice a day, metolazone 5 mg daily, metoprolol tartrate 25 mg twice a day. PHYSICAL EXAMINATION: Blood pressure 123/73 with a heart rate in 70s. LUNGS: A few crackles at the bases. HEART: Regular rate and rhythm, S1, S2. No S3. No rub appreciated. ABDOMEN: Soft, nontender. EXTREMITIES: With 2 to 3+ edema with chronic skin changes and dressing on the left foot. LAB DATA: BUN and creatinine 57, 1.69. Hemoglobin of 8.8. IMPRESSION: 1. Symptoms of congestive heart failure with diastolic dysfunction. 2. Renal failure. 3. History of hypertension. 4. Hyperlipidemia. 5. Morbid obesity. 6. Diabetes mellitus. 7. Peripheral vascular disease. 8. Scrotal edema. RECOMMENDATION: We will continue present therapy. I will cut down the dose of his clonidine to once a day, increase his hydralazine. Follow his renal function. Follow his weight and depending on his progress, further recommendation will be made. MMODL / IJN: [id number] /
[2019-01-30] MEDS: MAGNESIUM SULFATE-D5W PMX 1 GM in DEXTROSE/WATER 1 100ML.BAG IVPB SCH ×2 (15:13→16:15)
[2019-01-30 17:03] LABS: Glucose,Whole Blood 227 mg/dL (75-99)
[2019-01-30 21:22] LABS: Glucose,Whole Blood 194 mg/dL (75-99)
[2019-01-30] MEDS: ATORVASTATIN 80 MG TAB PO SCH (21:52)
[2019-01-30] MEDS: ACETAMINOPHEN TAB 325 MG TAB PO PRN (21:52)
[2019-01-30] MEDS: lamoTRIgine 100 MG TAB PO SCH (21:52)
--- NOTE | 2019-01-30 22:57 | P.PN ---
Subjective Progress Note Date: 01/30/19 58-year-old male with multiple medical troubles including diabetes peripheral vascular disease and is a relates to difficulties with mental illness in had a suicide attempt with injury to his left arm.The patient underwent surgical repair to the left wrist lacerations. He has been released from the psychiatric unit with improvement of his condition after medication changes. He overspending having increasing amounts of edema with progressive scrotal and lower extremity edema. He was in the emergency center last week with evidence of the scrotal edema. No evidence of any hydrocele or strangulation was noted was referred back to his primary care physician for his ongoing and worsening edema. The patient became extremely uncomfortable was having difficulties with urination due to the very swollen scrotum and pressure on the penis. Testicles he has now been admitted for acute on chronic renal failure, extensive edema including extensive scrotal edema. The patient has had worsening of the lower extremity edema and has developed blistering to the right lower extremity and has ongoing ulceration to the prior amputation site to the left great toe. With these issues the consult has been requested. The patient is seen with the vascular surgeon. The patient relates he is very uncomfortable because of the extensive scrotal swelling which fortunately there's been some improvement because of [place] catheter was placed. Patient does not believe he has had high- grade fever chills or rigors but feels very poorly. 01/30/2019 patient is feeling slightly better today. He. His parents are present and have many questions that are answered to the best of this provider's ability.only pain and discomfort is from the large scrotal swelling which has improved slightly today Objective - Vital Signs Vital signs: Vital Signs Temp 98.1 F 01/30/19 09:35 Pulse 73 01/30/19 15:59 Resp 19 01/30/19 15:59 BP 124/68 01/30/19 15:59 Pulse Ox 98 01/30/19 15:59 Intake & Output 01/30/19 01/30/19 01/31/19 06:59 18:59 06:59 Intake Total 0882.572 7129.5 Output Total 1300 2825 1200 Balance 454.667 -736.5 -1200 Weight 139 kg 139 kg Intake: Intake, IV Titration 74.667 608.5 Amount Cefepime 2 gm In Sodium 260 Chloride 0.9% 100 ml @ 200 mls/hr IVPB Q8HR [facility] Rx#:[id number] Furosemide 100 mg In 74.667 148.5 Sodium Chloride 0.9% 90 ml @ 15 MG/HR 15 mls/hr IV .Q6H40M [facility] Rx#: [id number] Magnesium Sulfate-D5w Pmx 200 1 gm In Dextrose/Water 1 100ml.bag @ 100 mls/hr IVPB Q1H [facility] Rx#: [id number] Oral 1680 1480 Output: Urine 1300 2825 1200 Other: Voiding Method Indwelling Catheter Indwelling Catheter # Voids 1 # Bowel Movements 1 - Exam Obese 58-year-old male who is a less anxious and less short of breath is mildly sedated HEENT: Anicteric conjunctiva are pink and moist nasal mucosa grossly intact without significant lesions, there is no thrush. Neck: The neck is supple without significant lymphadenopathy or thyromegaly. Lungs: Symmetrical air entry is noted basilar crackles are noted expiratory wheezing is heard no bronchial sounds dullness or egophony Heart: Irregular with a positive S4 no murmur click or rub PMI is nondisplaced Abdomen: Obese Positive bowel sounds soft and nontender without palpable masses or organomegaly. There was no guarding or rebound. Extremities: The upper extremities have no open lesions IV site is intact. Lower extremities show evidence of the extensive edema is evidence of anasarca with edema up to the abdominal wall and evidence of the extensive scrotal edema. There is no evidence of any skin breakdown at this time. Machado catheter is in place which patient relates is given him significant relief of discomfort With edema right foot is developed multiple blisters which cultures are obtained. The ulceration to left great toe status post the distal amputation is noted. Neuro: Awake alert oriented to person place and time. There are no acute new gross focal sensory motor deficits. - Labs CBC & Chem 7: 01/30/19 11:11 01/30/19 05:49 Labs: Abnormal Lab Results - Last 24 Hours (Table) 01/29/19 01/29/19 01/30/19 Range/Units 23:46 23:46 05:49 RBC 3.26 L (4.30-5.90) m/uL Hgb 8.5 L (13.0-17.5) gm/dL Hct 29.5 L (39.0-53.0) % MCHC 28.9 L (31.0-37.0) g/dL RDW 16.3 H (11.5-15.5) % Neutrophils # (1.3-7.7) k/uL Lymphocytes # 0.6 L (1.0-4.8) k/uL Sodium 133 L 132 L (137-145) mmol/L BUN 57 H 57 H (9-20) mg/dL Creatinine 1.70 H 1.69 H (0.66-1.25) mg/dL Glucose 171 H 153 H (74-99) mg/dL POC Glucose (mg/dL) (75-99) mg/dL Calcium 8.3 L 8.1 L (8.4-10.2) mg/dL 01/30/19 01/30/19 01/30/19 Range/Units 05:49 06:21 11:11 RBC 3.27 L 3.19 L (4.30-5.90) m/uL Hgb 8.8 L 8.5 L (13.0-17.5) gm/dL Hct 29.3 L 28.8 L (39.0-53.0) % MCHC 29.9 L 29.4 L (31.0-37.0) g/dL RDW 16.2 H 16.4 H (11.5-15.5) % Neutrophils # 7.8 H (1.3-7.7) k/uL Lymphocytes # 0.8 L (1.0-4.8) k/uL Sodium (137-145) mmol/L BUN (9-20) mg/dL Creatinine (0.66-1.25) mg/dL Glucose (74-99) mg/dL POC Glucose (mg/dL) 184 H (75-99) mg/dL Calcium (8.4-10.2) mg/dL 01/30/19 01/30/19 01/30/19 Range/Units 11:40 16:52 21:15 RBC (4.30-5.90) m/uL Hgb (13.0-17.5) gm/dL Hct (39.0-53.0) % MCHC (31.0-37.0) g/dL RDW (11.5-15.5) % Neutrophils # (1.3-7.7) k/uL Lymphocytes # (1.0-4.8) k/uL Sodium (137-145) mmol/L BUN (9-20) mg/dL Creatinine (0.66-1.25) mg/dL Glucose (74-99) mg/dL POC Glucose (mg/dL) 245 H 227 H 194 H (75-99) mg/dL Calcium (8.4-10.2) mg/dL Microbiology - Last 24 Hours (Table) 01/29/19 17:30 Gram Stain - Preliminary Foot - Left Wound Culture - Preliminary Gram Neg Bacilli Laboratory Results WBC 8.8 k/uL (3.8-10.6) 01/30/19 11:11 RBC 3.19 m/uL (4.30-5.90) L 01/30/19 11:11 Hgb 8.5 gm/dL (13.0-17.5) L 01/30/19 11:11 Hct 28.8 % (39.0-53.0) L 01/30/19 11:11 MCV 90.3 fL (80.0-100.0) 01/30/19 11:11 MCH 26.5 pg (25.0-35.0) 01/30/19 11:11 MCHC 29.4 g/dL (31.0-37.0) L 01/30/19 11:11 RDW 16.4 % (11.5-15.5) H 01/30/19 11:11 Plt Count 374 k/uL (150-450) 01/30/19 11:11 Neutrophils % 79 % 01/30/19 05:49 Lymphocytes % 8 % 01/30/19 05:49 Monocytes % 7 % 01/30/19 05:49 Eosinophils % 4 % 01/30/19 05:49 Basophils % 0 % 01/30/19 05:49 Neutrophils # 7.8 k/uL (1.3-7.7) H 01/30/19 05:49 Lymphocytes # 0.8 k/uL (1.0-4.8) L 01/30/19 05:49 Monocytes # 0.7 k/uL (0-1.0) 01/30/19 05:49 Eosinophils # 0.4 k/uL (0-0.7) 01/30/19 05:49 Basophils # 0.0 k/uL (0-0.2) 01/30/19 05:49 Hypochromasia Marked 01/30/19 11:11 Poikilocytosis Slight 01/30/19 11:11 Anisocytosis Slight 01/30/19 11:11 PT 12.7 sec (9.0-12.0) H 01/29/19 08:48 INR 1.2 (<1.2) H 01/29/19 08:48 APTT 27.6 sec (22.0-30.0) 01/29/19 08:48 Sodium 132 mmol/L (137-145) L 01/30/19 05:49 Potassium 4.3 mmol/L (3.5-5.1) 01/30/19 05:49 Chloride 100 mmol/L (98-107) 01/30/19 05:49 Carbon Dioxide 22 mmol/L (22-30) 01/30/19 05:49 Anion Gap 10 mmol/L 01/30/19 05:49 BUN 57 mg/dL (9-20) H 01/30/19 05:49 Creatinine 1.69 mg/dL (0.66-1.25) H 01/30/19 05:49 Est GFR (CKD-EPI)AfAm 51 (>60 ml/min/1.73 sqM) 01/30/19 05:49 Est GFR (CKD-EPI)NonAf 44 (>60 ml/min/1.73 sqM) 01/30/19 05:49 Glucose 153 mg/dL (74-99) H 01/30/19 05:49 POC Glucose (mg/dL) 194 mg/dL (75-99) H 01/30/19 21:15 POC Glu [place] TOMA [place] Schroeder 01/30/19 21:[address] Glu mg/dL 183 01/29/19 08:48 Hemoglobin A1c 8.0 % (4.0-6.0) H 01/29/19 08:48 Plasma Lactic Acid [place] 1.1 mmol/L (0.7-2.0) 01/29/19 23:46 Calcium 8.1 mg/dL (8.4-10.2) L 01/30/19 05:49 Magnesium 1.7 mg/dL (1.6-2.3) 01/30/19 05:49 Iron 20 ug/dL (65-175) L 01/29/19 14:35 TIBC 308 ug/dL (228-460) 01/29/19 14:35 Iron Saturation 6.49 (15.00-50.00) L 01/29/19 14:35 Ferritin 67.7 ng/mL (22.0-322.0) 01/29/19 14:35 Total Bilirubin 0.6 mg/dL (0.2-1.3) 01/29/19 08:48 AST 21 U/L (17-59) 01/29/19 08:48 ALT 60 U/L (21-72) 01/29/19 08:48 Alkaline Phosphatase 154 U/L (38-126) H 01/29/19 08:48 Troponin I 0.054 ng/mL (0.000-0.034) H* 01/29/19 20:28 NT-Pro-B Natriuret Pep 5210 pg/mL 01/29/19 08:48 Total Protein 6.0 g/dL (6.3-8.2) L 01/29/19 08:48 Albumin 2.9 g/dL (3.5-5.0) L 01/29/19 08:48 Urine Color Yellow 01/29/19 09:01 Urine Appearance Clear (Clear) 01/29/19 09:01 Urine pH 5.0 (5.0-8.0) 01/29/19 09:01 Ur Specific [place] 1.012 (1.001-1.035) 01/29/19 09:01 Urine Protein Trace (Negative) H 01/29/19 09:01 Urine Glucose (UA) Negative (Negative) 01/29/19 09:01 Urine Ketones Negative (Negative) 01/29/19 09:01 Urine Blood Negative (Negative) 01/29/19 09:01 Urine Nitrite Negative (Negative) 01/29/19 09:01 Urine Bilirubin Negative (Negative) 01/29/19 09:01 Urine Urobilinogen <2.0 mg/dL (<2.0) 01/29/19 09:01 Ur Leukocyte Esterase Negative (Negative) 01/29/19 09:01 Microbiology 01/29/19 17:30 Foot - Left Gram Stain - Preliminary 01/29/19 17:30 Foot - Left Wound Culture - Preliminary Gram Neg Bacilli Assessment and Plan (1) CHF (congestive heart failure) Current Visit: Yes Status: Acute Code(s): I50.9 - HEART FAILURE, UNSPECIFIED SNOMED Code(s): 78129578 (2) SOB (shortness of breath) Current Visit: Yes Status: Acute Code(s): R06.02 - SHORTNESS OF BREATH SNOMED Code(s): 786308631 (3) Scrotal edema Current Visit: No Status: Acute Code(s): N50.89 - OTHER SPECIFIED DISORDERS OF THE MALE GENITAL ORGANS SNOMED Code(s): 32828331 (4) Laceration of left wrist Current Visit: No Status: Acute Code(s): S61.512A - LACERATION WITHOUT FOREIGN BODY OF LEFT WRIST, INIT ENCNTR SNOMED Code(s): 08740910276302693 (5) Foot ulcer due to secondary DM Narrative/Plan: 58-year-old male presents to Hospital feeling very poorly. He said extensive edema that has been worsening over many days. His developed extensive scrotal edema to the with urination and lower extremity edema is not resulting in blisters on the right foot with some ulceration. The patient has not been receiving care to the left great toe amputation site which has evidence of some eschar. The patient is been seen by the vascular surgeon no plans for surgical intervention at this time. Therahoney to the left great toe as planned. Absorptive dressing to the right foot and rapid place for now. Cultures obtained from the blister fluid. Antibiotic therapy is initiate with cefepime to give us coverage for his prior baseline pathogens including MSSA. He does not have a history of MRSA. To the scrotum the zinc product can be applied to prevent any further discomforts would also help with some of the irritation is having from the extensive scrotal edema. Therahoney product will also be applied to the left wrist laceration site that is evidence slough. We'll expect some improvement with alteration of the wound care to the wrist 01/30/2019 the patient is feeling slightly better today, less anxious and resting well. Pain is improved but still has a significant discomfort to the scrotum that is still quite swollen but is less tight than yesterday, there is no open ulcerations of the scrotum. The left wrist left foot and right foot ulcerations are being treated and are slightly improved today. Wound cultures pending gram-negative bacilli is seen. Current Visit: Yes Status: Acute Code(s): E13.621 - OTHER SPECIFIED DIABETES MELLITUS WITH FOOT ULCER; L97.509 - NON-PRESSURE CHRONIC ULCER OTH PRT UNSP FOOT W UNSP SEVERITY SNOMED Code(s): 8389293
[2019-01-30] MEDS ORDERED: ALPRAZolam 1 MG TAB PO STA (23:46)
[2019-01-31] MEDS: CEFEPIME 2 GM in SODIUM CHLORIDE 0.9% 100 ML IVPB SCH ×3 (00:12→16:42)
[2019-01-31 06:14] LABS: Glucose,Whole Blood 139 mg/dL (75-99)
[2019-01-31] MEDS: FUROSEMIDE 100 MG in SODIUM CHLORIDE 0.9% 90 ML IV SCH ×4 (06:44→22:24)
[2019-01-31] MEDS: INSULIN ASPART (NovoLOG) 100 UNIT/ML VIAL SQ SCH ×4 (06:44→22:32)
[2019-01-31 07:14] LABS: Anisocytosis Slight; Basophils % (A) 0 %; Eosinophils # (A) 0.4 k/uL (0-0.7); Eosinophils % (A) 4 %; HCT 29.3 % (39.0-53.0); HGB 8.6 gm/dL (13.0-17.5); Hypochromasia Marked; Lymphocytes # (A) 0.9 k/uL (1.0-4.8); Lymphocytes % (A) 10 %; MCH 26.4 pg (25.0-35.0); MCHC 29.4 g/dL (31.0-37.0); MCV 89.8 fL (80.0-100.0); Mean Platelet Volume 6.9; Monocytes # (A) 0.5 k/uL (0-1.0); Monocytes % (A) 6 %; Neutrophils % (A) 78 %; Platelet Count 422 k/uL (150-450); Poikilocytosis Slight; RBC 3.26 m/uL (4.30-5.90); RDW 16.5 % (11.5-15.5); WBC 8.9 k/uL (3.8-10.6)
[2019-01-31 07:27] LABS: Calcium 8.4 mg/dL (8.4-10.2); Magnesium 1.8 mg/dL (1.6-2.3); Potassium 3.2 mmol/L (3.5-5.1)
[2019-01-31] MEDS: ALPRAZolam 1 MG TAB PO SCH (08:16)
[2019-01-31] MEDS: METOLAZONE 5 MG TAB PO SCH (08:16)
[2019-01-31] MEDS: SERTRALINE 50 MG TAB PO SCH (08:17)
[2019-01-31] MEDS: INSULIN DETEMIR (LEVEMIR) 100 UNIT/ML SYR SQ SCH (08:17)
[2019-01-31] MEDS: ASPIRIN 81 MG PO SCH (08:17)
[2019-01-31] MEDS: METOPROLOL TARTRATE 25 MG TAB PO SCH ×2 (08:17→22:24)
[2019-01-31] MEDS ORDERED: cloNIDine HCL 0.1 MG TAB PO SCH (09:00)
[2019-01-31] MEDS ORDERED: hydrALAZINE HCL 50 MG TAB PO SCH (09:00)
[2019-01-31] MEDS ORDERED: POTASSIUM CHLORIDE ER 20 MEQ TAB.ER PO STA (09:57)
--- NOTE | 2019-01-31 10:08 | P.PN ---
Subjective Patient is seen in follow-up for acute kidney injury. Renal function is slightly worse. Creatinine 1.8 today. Patient is still quite edematous. He is maintained on Lasix drip at 15 mL an hour. Urine output documented at 6.4 L in the last 24 hours. Denies chest pain or shortness of breath. No vomiting or diarrhea. Vital signs are stable. General: The patient appeared well nourished and normally developed. HEENT: Head exam is unremarkable. Neck is without jugular venous distension. LUNGS: Breath sounds decreased. HEART: Rate and Rhythm are regular. First and second heart sounds normal. No murmurs, rubs or gallops. ABDOMEN: Abdominal exam reveals normal bowel sounds. Non-tender and non- distended. EXTREMITITES: 1+ edema. Severe scrotal edema noted. Objective - Vital Signs Vital signs: Vital Signs Temp 98.3 F 01/31/19 08:27 Pulse 76 01/31/19 08:28 Resp 18 01/31/19 08:28 BP 110/66 01/31/19 08:27 Pulse Ox 93 L 01/31/19 08:27 Intake & Output 01/30/19 01/31/19 01/31/19 18:59 06:59 18:59 Intake Total 2088.5 100 Output Total 2825 3600 Balance -736.5 -3500 Weight 139 kg 128 kg Intake: Intake, IV Titration 608.5 100 Amount Cefepime 2 gm In Sodium 260 Chloride 0.9% 100 ml @ 200 mls/hr IVPB Q8HR [facility] Rx#:[id number] Furosemide 100 mg In 148.5 100 Sodium Chloride 0.9% 90 ml @ 15 MG/HR 15 mls/hr IV .Q6H40M [facility] Rx#: [id number] Magnesium Sulfate-D5w Pmx 200 1 gm In Dextrose/Water 1 100ml.bag @ 100 mls/hr IVPB Q1H [facility] Rx#: [id number] Oral 1480 Output: Urine 2825 3600 Other: Voiding Method Indwelling Catheter Indwelling Catheter Indwelling Catheter # Bowel Movements 1 - Labs CBC & Chem 7: 01/31/19 06:12 01/31/19 06:12 Labs: Abnormal Lab Results - Last 24 Hours (Table) 01/30/19 01/30/19 01/30/19 Range/Units 11:11 11:40 16:52 RBC 3.19 L (4.30-5.90) m/uL Hgb 8.5 L (13.0-17.5) gm/dL Hct 28.8 L (39.0-53.0) % MCHC 29.4 L (31.0-37.0) g/dL RDW 16.4 H (11.5-15.5) % Lymphocytes # (1.0-4.8) k/uL Sodium (137-145) mmol/L Potassium (3.5-5.1) mmol/L BUN (9-20) mg/dL Creatinine (0.66-1.25) mg/dL Glucose (74-99) mg/dL POC Glucose (mg/dL) 245 H 227 H (75-99) mg/dL 01/30/19 01/31/19 01/31/19 Range/Units 21:15 06:05 06:12 RBC 3.26 L (4.30-5.90) m/uL Hgb 8.6 L (13.0-17.5) gm/dL Hct 29.3 L (39.0-53.0) % MCHC 29.4 L (31.0-37.0) g/dL RDW 16.5 H (11.5-15.5) % Lymphocytes # 0.9 L (1.0-4.8) k/uL Sodium (137-145) mmol/L Potassium (3.5-5.1) mmol/L BUN (9-20) mg/dL Creatinine (0.66-1.25) mg/dL Glucose (74-99) mg/dL POC Glucose (mg/dL) 194 H 139 H (75-99) mg/dL 01/31/19 Range/Units 06:12 RBC (4.30-5.90) m/uL Hgb (13.0-17.5) gm/dL Hct (39.0-53.0) % MCHC (31.0-37.0) g/dL RDW (11.5-15.5) % Lymphocytes # (1.0-4.8) k/uL Sodium 136 L (137-145) mmol/L Potassium 3.2 L (3.5-5.1) mmol/L BUN 56 H (9-20) mg/dL Creatinine 1.80 H (0.66-1.25) mg/dL Glucose 127 H (74-99) mg/dL POC Glucose (mg/dL) (75-99) mg/dL Microbiology - Last 24 Hours (Table) 01/29/19 17:30 Gram Stain - Preliminary Foot - Left Wound Culture - Preliminary Gram Neg Bacilli Assessment and Plan Plan: Assessment: 1. Acute kidney injury mostly prerenal secondary to cardiorenal syndrome. Creatinine 1.8 today. Baseline creatinine near 1. UA is quite benign. Ultrasound from last month revealed no evidence of hydronephrosis. 2. Dyspnea secondary to volume overload. 3. Insulin-dependent diabetes mellitus. 4. Anemia. Severe iron deficiency noted. 5. Benign hypertension. 6. 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 7. Hypomagnesemia secondary to diuresis. Better. 8. Diastolic CHF. 9. Hypokalemia secondary to diuresis. Plan: Maintain Lasix drip at 15 mL an hour. Continue metolazone 5 mg daily. Low-salt diet and 1.5 L fluid restriction. Daily weights. Avoid nephrotoxins. IV Ferrlecit 3 doses. second dose today. Replace potassium. 8 mEq today. Repeat electrolytes in the morning.
--- NOTE | 2019-01-31 10:19 | PN ---
PROGRESS NOTE Mr. Talbot is a 58-year-old male who presented with progressive edema with scrotal edema and progressive dyspnea. He is feeling much better today. His breathing is much better. He denies any chest pain. He denies any dizziness or palpitation. He denies any nausea. He continued be on IV Lasix drip. His weight is down 11 kg since yesterday. He has continued to be in sinus mechanism and hemodynamically stable. He continues to be on aspirin 81 mg daily, Lipitor 80 mg daily, clonidine 0.1 mg daily, IV Lasix drip, hydralazine 50 mg daily, insulin, metolazone 5 mg daily, metoprolol tartrate 25 mg twice a day. PHYSICAL EXAMINATION: Blood pressure 110/60 with a heart rate in the 70s. LUNGS: Clear. HEART: Regular rate and rhythm S1, S2. No S3. No rub. ABDOMEN: Soft, obese, nontender. EXTREMITIES: +2 edema, improved compared with yesterday. Dressing on both feet. LAB DATA: Lab data revealed BUN and creatinine 56 and 1.8, potassium 3.2, hemoglobin of 8.6. IMPRESSION: 1. Congestive heart failure with a diastolic dysfunction. 2. Renal failure. 3. Hypertension. 4. Hyperlipidemia. 5. Morbid obesity. 6. Diabetes mellitus. 7. Anemia. 8. Peripheral vascular disease. RECOMMENDATION: I will stop his clonidine. I will adjust the dose of his hydralazine. Follow his renal function. I will continue on the IV Lasix drip for another 24 hours. Follow his renal function and depending on his progress, further recommendations will be made. MMODL / IJN: [id number] /
[2019-01-31 12:13] LABS: Glucose,Whole Blood 126 mg/dL (75-99)
[2019-01-31 17:09] LABS: Glucose,Whole Blood 119 mg/dL (75-99)
[2019-01-31 20:58] LABS: Glucose,Whole Blood 190 mg/dL (75-99)
[2019-01-31] MEDS: lamoTRIgine 100 MG TAB PO SCH (22:24)
[2019-01-31] MEDS: hydrALAZINE HCL 50 MG TAB PO SCH (22:24)
[2019-01-31] MEDS: ATORVASTATIN 80 MG TAB PO SCH (22:24)
--- NOTE | 2019-02-01 01:51 | P.PN ---
Subjective Progress Note Date: 01/31/19 Principal diagnosis: Acute exacerbation CHF Acute on chronic kidney disease Cardiorenal syndrome 01/30/2019 Patient seen in follow-up on the selective care unit. He is currently awake and alert in no acute distress. Laying flat in bed. Denies any worsening shortness of breath, cough or congestion. Maintaining good O2 saturations in the upper 90s on 3 L/m per nasal cannula. Afebrile. Hemodynamically stable. Left foot wound culture pending. White count 8.8. Hemoglobin 8.5. Antibiotics in the form of cefepime. He is currently on a Lasix drip at 10 mg per hour. Remains in a negative balance. 01/31/2019; Patient is seen and evaluated in room at bedside; patient voices no specific complaints Vital signs are stable with a temperature of 98.3, pulse 76, respiration 18 and blood pressure of 110/66 Labs are reviewed showing a CBC white blood count of 8.9, hemoglobin 8.6; chemical profile sodium 136, potassium 3.2, BUN/creatinine of 56/1.8; nephrology is following for acute renal failure and recommending to continue with Lasix drip at 15 mils per hour; continue with metolazone at 5 mg daily; shouldn't remains on low salt diet and 1.5 L fluid restriction; we will continue to monitor daily weights and strict ANAYA's; patient did receive potassium replacement of 8 meq today; we will monitor electrolytes for tomorrow morning Objective - Vital Signs Vital signs: Vital Signs Temp 98.2 F 01/31/19 12:23 Pulse 75 01/31/19 12:23 Resp 20 01/31/19 12:23 BP 107/62 01/31/19 12:23 Pulse Ox 93 L 01/31/19 12:23 Intake & Output 01/30/19 01/31/19 01/31/19 18:59 06:59 18:59 Intake Total 2088.5 100 661.75 Output Total 2825 3600 2400 Balance -736.5 -3500 -1738.25 Weight 139 kg 128 kg Intake: Intake, IV Titration 608.5 100 61.75 Amount Cefepime 2 gm In Sodium 260 Chloride 0.9% 100 ml @ 200 mls/hr IVPB Q8HR [facility] Rx#:[id number] Furosemide 100 mg In 148.5 100 61.75 Sodium Chloride 0.9% 90 ml @ 15 MG/HR 15 mls/hr IV .Q6H40M [facility] Rx#: [id number] Magnesium Sulfate-D5w Pmx 200 1 gm In Dextrose/Water 1 100ml.bag @ 100 mls/hr IVPB Q1H [facility] Rx#: [id number] Oral 1480 600 Output: Urine 2825 3600 2400 Uretheral ([place]) 1800 Other: Voiding Method Indwelling Catheter Indwelling Catheter Indwelling Catheter # Voids 1 # Bowel Movements 1 1 - Exam PHYSICAL EXAMINATION: GENERAL: The patient is alert and oriented x3, not in any acute distress. Well developed, well nourished. HEENT: Pupils are round and equally reacting to light. EOMI. No scleral icterus. No conjunctival pallor. Normocephalic, atraumatic. No pharyngeal erythema. No thyromegaly. CARDIOVASCULAR: S1 and S2 present. No murmurs, rubs, or gallops. PULMONARY: Chest is clear to auscultation, no wheezing or crackles. ABDOMEN: Soft, nontender, nondistended, normoactive bowel sounds. No palpable organomegaly. MUSCULOSKELETAL: No joint swelling or deformity. EXTREMITIES: No cyanosis, clubbing, or pedal edema. NEUROLOGICAL: Gross neurological examination did not reveal any focal deficits. SKIN: No rashes. - Labs CBC & Chem 7: 01/31/19 06:12 01/31/19 06:12 Labs: Abnormal Lab Results - Last 24 Hours (Table) 01/30/19 01/30/19 01/31/19 Range/Units 16:52 21:15 06:05 RBC (4.30-5.90) m/uL Hgb (13.0-17.5) gm/dL Hct (39.0-53.0) % MCHC (31.0-37.0) g/dL RDW (11.5-15.5) % Lymphocytes # (1.0-4.8) k/uL Sodium (137-145) mmol/L Potassium (3.5-5.1) mmol/L BUN (9-20) mg/dL Creatinine (0.66-1.25) mg/dL Glucose (74-99) mg/dL POC Glucose (mg/dL) 227 H 194 H 139 H (75-99) mg/dL 01/31/19 01/31/19 01/31/19 Range/Units 06:12 06:12 12:09 RBC 3.26 L (4.30-5.90) m/uL Hgb 8.6 L (13.0-17.5) gm/dL Hct 29.3 L (39.0-53.0) % MCHC 29.4 L (31.0-37.0) g/dL RDW 16.5 H (11.5-15.5) % Lymphocytes # 0.9 L (1.0-4.8) k/uL Sodium 136 L (137-145) mmol/L Potassium 3.2 L (3.5-5.1) mmol/L BUN 56 H (9-20) mg/dL Creatinine 1.80 H (0.66-1.25) mg/dL Glucose 127 H (74-99) mg/dL POC Glucose (mg/dL) 126 H (75-99) mg/dL Microbiology - Last 24 Hours (Table) 01/29/19 17:30 Gram Stain - Preliminary Foot - Left Wound Culture - Preliminary Gram Neg Bacilli Assessment and Plan Assessment: 1. Dyspnea; acute exacerbation CHF/ fluid overload secondary to cardiac renal syndrome - Patient is started on IV Lasix drip at a rate of 10 mils/hr per nephrology service - Recommendations are for low salt diet and 1.5 L fluid restriction - Echocardiogram is ordered and pending; await further recommendations from cardiology 2. Acute on chronic kidney disease; cardiorenal syndrome - Patient is recommended IV Lasix drip as above - We will monitor strict ANAYA's, daily weights, renal function and electrolytes; check iron studies - Avoid nephrotoxins and hypotension; nephrology is following 3. Elevated troponin; possibly secondary to worsening kidney disease versus acute coronary syndrome - We will plan to trend troponin and monitor EKG; 2-D echo is ordered - Further recommendations per cardiology 4. Hypertension; stable on metoprolol 25 mg twice a day and hydralazine 25 mg twice a day 5. Insulin-dependent diabetes; monitor Accu-Cheks every before meals and at bedtime with insulin sliding scale 6. Hyperlipidemia; Lipitor 80 mg by mouth daily at bedtime DVT prophylaxis; SCDs CODE STATUS; full code Time with Patient: Greater than 30
[2019-02-01] MEDS: CEFEPIME 2 GM in SODIUM CHLORIDE 0.9% 100 ML IVPB SCH ×3 (02:06→17:49)
[2019-02-01 06:06] LABS: Glucose,Whole Blood 139 mg/dL (75-99)
[2019-02-01 06:55] LABS: Calcium 8.7 mg/dL (8.4-10.2); Magnesium 1.7 mg/dL (1.6-2.3); Potassium 2.8 mmol/L (3.5-5.1)
[2019-02-01 06:57] LABS: HCT 29.4 % (39.0-53.0); HGB 8.6 gm/dL (13.0-17.5); MCH 25.7 pg (25.0-35.0); MCHC 29.1 g/dL (31.0-37.0); MCV 88.2 fL (80.0-100.0); RBC 3.33 m/uL (4.30-5.90); RDW 16.6 % (11.5-15.5); WBC 10.8 k/uL (3.8-10.6)
[2019-02-01 06:58] LABS: Basophils % (A) 0 %; Eosinophils % (A) 5 %; Lymphocytes % (A) 8 %; Mean Platelet Volume 7.4; Monocytes % (A) 6 %; Neutrophils % (A) 81 %; Platelet Count 443 k/uL (150-450)
[2019-02-01 06:59] LABS: Eosinophils # (A) 0.5 k/uL (0-0.7); Lymphocytes # (A) 0.8 k/uL (1.0-4.8); Monocytes # (A) 0.6 k/uL (0-1.0); Neutrophils # (A) 8.7 k/uL (1.3-7.7)
[2019-02-01] MEDS: FUROSEMIDE 100 MG in SODIUM CHLORIDE 0.9% 90 ML IV SCH ×4 (07:09→18:36)
[2019-02-01] MEDS: INSULIN ASPART (NovoLOG) 100 UNIT/ML VIAL SQ SCH ×4 (07:10→20:41)
[2019-02-01] MEDS: ALPRAZolam 1 MG TAB PO SCH (09:01)
[2019-02-01] MEDS: SERTRALINE 50 MG TAB PO SCH (09:01)
[2019-02-01] MEDS: hydrALAZINE HCL 50 MG TAB PO SCH ×2 (09:01→20:40)
[2019-02-01] MEDS: METOLAZONE 5 MG TAB PO SCH (09:01)
[2019-02-01] MEDS: METOPROLOL TARTRATE 25 MG TAB PO SCH ×2 (09:01→20:40)
[2019-02-01] MEDS: ASPIRIN 81 MG PO SCH (09:01)
[2019-02-01] MEDS: INSULIN DETEMIR (LEVEMIR) 100 UNIT/ML SYR SQ SCH (09:01)
[2019-02-01] MEDS ORDERED: Potassium Replacement Protocol 1 EACH MISC MISCELLANE PRN (10:04)
[2019-02-01] MEDS ORDERED: POTASSIUM CHLORIDE ER 20 MEQ TAB.ER PO STA (10:09)
--- NOTE | 2019-02-01 10:24 | PN ---
PROGRESS NOTE Mr. Talbot is a 58-year-old male who presented with worsening peripheral edema and worsening dyspnea. He continued to be dyspneic today, although he is lying supine. He denies any symptoms of chest pain. He denies any dizziness or palpitation. He is concerned that at times he has been hearing voices, of note that he had a suicidal attempt prior to prior admissions. Hemodynamically, he is stable. He continued to have scrotal edema. He continues to be at this time on aspirin once a day, Lasix 15 mg an hour drip, hydralazine 50 mg twice a day, metolazone 5 mg daily, metoprolol tartrate 25 mg twice a day. PHYSICAL EXAMINATION: Blood pressure 120/60 with the heart rate in the 70s. LUNGS: Clear. HEART: Regular rate and rhythm. S1, S2. No S3. No rub appreciated. ABDOMEN: Soft, obese, nontender. EXTREMITIES: +2 edema bilaterally. Scrotal edema noted. LAB DATA: Lab data revealed BUN and creatinine 58 and 1.95, slightly worsened compared to yesterday. His potassium is 2.8. Hemoglobin of 8.6. IMPRESSION: 1. Symptoms of congestive heart failure with a diastolic dysfunction. 2. Renal failure. 3. Hypertension. 4. Hyperlipidemia. 5. Morbid obesity. RECOMMENDATION: We will continue the IV Lasix drip. Follow his renal function. Replace his potassium and depending on his progress, further recommendation will be made. We will try to increase his level activity. MMODL / IJN: [id number] /
--- NOTE | 2019-02-01 10:36 | P.PN ---
Subjective Patient is seen in follow-up for acute kidney injury. Renal function is slightly worse which is due to diuresis. Creatinine 1.95 today. Patient is still quite edematous. He is maintained on Lasix drip at 15 mL an hour. Urine output documented at 7.4 L in the last 24 hours. Denies chest pain or shortness of breath. No vomiting or diarrhea. Vital signs are stable. General: The patient appeared well nourished and normally developed. HEENT: Head exam is unremarkable. Neck is without jugular venous distension. LUNGS: Breath sounds decreased. HEART: Rate and Rhythm are regular. First and second heart sounds normal. No murmurs, rubs or gallops. ABDOMEN: Abdominal exam reveals normal bowel sounds. Non-tender and non- distended. EXTREMITITES: 1+ edema. Severe scrotal edema noted. Objective - Vital Signs Vital signs: Vital Signs Temp 98.5 F 02/01/19 08:00 Pulse 79 02/01/19 08:00 Resp 18 02/01/19 08:00 BP 120/68 02/01/19 08:00 Pulse Ox 96 02/01/19 08:00 Intake & Output 01/31/19 02/01/19 02/01/19 18:59 06:59 18:59 Intake Total 1383.75 200 Output Total 3700 3700 3675 Balance -2316.25 -3500 -3675 Weight 137 kg Intake: Intake, IV Titration 161.75 200 Amount Cefepime 2 gm In Sodium 100 Chloride 0.9% 100 ml @ 200 mls/hr IVPB Q8HR [facility] Rx#:[id number] Furosemide 100 mg In 61.75 200 Sodium Chloride 0.9% 90 ml @ 15 MG/HR 15 mls/hr IV .Q6H40M [facility] Rx#: [id number] Oral 1222 Output: Urine 3700 3700 3675 Uretheral ([place]) 3100 900 900 Other: Voiding Method Indwelling Catheter Indwelling Catheter Indwelling Catheter # Voids 1 600 # Bowel Movements 1 - Labs CBC & Chem 7: 02/01/19 06:25 02/01/19 06:25 Labs: Abnormal Lab Results - Last 24 Hours (Table) 01/31/19 01/31/19 01/31/19 Range/Units 12:09 16:45 20:52 WBC (3.8-10.6) k/uL RBC (4.30-5.90) m/uL Hgb (13.0-17.5) gm/dL Hct (39.0-53.0) % MCHC (31.0-37.0) g/dL RDW (11.5-15.5) % Neutrophils # (1.3-7.7) k/uL Lymphocytes # (1.0-4.8) k/uL Sodium (137-145) mmol/L Potassium (3.5-5.1) mmol/L Chloride (98-107) mmol/L BUN (9-20) mg/dL Creatinine (0.66-1.25) mg/dL Glucose (74-99) mg/dL POC Glucose (mg/dL) 126 H 119 H 190 H (75-99) mg/dL 02/01/19 02/01/19 02/01/19 Range/Units 05:59 06:25 06:25 WBC 10.8 H (3.8-10.6) k/uL RBC 3.33 L (4.30-5.90) m/uL Hgb 8.6 L (13.0-17.5) gm/dL Hct 29.4 L (39.0-53.0) % MCHC 29.1 L (31.0-37.0) g/dL RDW 16.6 H (11.5-15.5) % Neutrophils # 8.7 H (1.3-7.7) k/uL Lymphocytes # 0.8 L (1.0-4.8) k/uL Sodium 135 L (137-145) mmol/L Potassium 2.8 L (3.5-5.1) mmol/L Chloride 96 L (98-107) mmol/L BUN 58 H (9-20) mg/dL Creatinine 1.95 H (0.66-1.25) mg/dL Glucose 131 H (74-99) mg/dL POC Glucose (mg/dL) 139 H (75-99) mg/dL Microbiology - Last 24 Hours (Table) 01/29/19 17:30 Gram Stain - Final Foot - Left Wound Culture - Final Enterobacter hormaechei Assessment and Plan Plan: Assessment: 1. Acute kidney injury mostly prerenal secondary to cardiorenal syndrome. Creatinine 1.95 today. Baseline creatinine near 1. UA is quite benign. Ultra sound from last month revealed no evidence of hydronephrosis. 2. Dyspnea secondary to volume overload. 3. Insulin-dependent diabetes mellitus. 4. Anemia. Severe iron deficiency noted. 5. Benign hypertension. 6. 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 7. Hypomagnesemia secondary to diuresis. 8. Diastolic CHF. 9. Hypokalemia secondary to diuresis. Plan: Maintain Lasix drip at 15 mL an hour. Continue metolazone 5 mg daily. Low-salt diet and 1.5 L fluid restriction. Daily weights. Avoid nephrotoxins. IV Ferrlecit 3 doses. Third dose today. Replace potassium. 100 mEq today. Replace magnesium. 2 g IV today. Repeat electrolytes in the morning.
[2019-02-01] MEDS: MAGNESIUM SULFATE-D5W PMX 1 GM in DEXTROSE/WATER 1 100ML.BAG IVPB SCH ×2 (11:41→12:52)
[2019-02-01 12:12] LABS: Glucose,Whole Blood 150 mg/dL (75-99)
[2019-02-01] MEDS: POTASSIUM CHLORIDE ER 20 MEQ TAB.ER PO SCH ×2 (12:52→15:00)
[2019-02-01 17:25] LABS: Glucose,Whole Blood 184 mg/dL (75-99)
[2019-02-01] MEDS: ATORVASTATIN 80 MG TAB PO SCH (20:40)
[2019-02-01 20:41] LABS: Glucose,Whole Blood 216 mg/dL (75-99)
[2019-02-01] MEDS: lamoTRIgine 100 MG TAB PO SCH (20:45)
--- NOTE | 2019-02-01 23:11 | PN ---
PROGRESS NOTE DATE OF SERVICE: 02/01/2019 INTERVAL HISTORY: This 58-year-old gentleman admitted with CHF acute exacerbation also had a cardiorenal syndrome and shortness of breath. The patient is being closely monitored at this time. The patient was seen by multiple consultants including cardiology and Pulmonology. The creatinine is elevated up to 1.9. The patient also has severe hypokalemia at this time. The patient is complaining of significant scrotal edema as well and bilateral leg cellulitis also. PAST MEDICAL HISTORY: Reviewed. REVIEW OF SYSTEMS: CARDIOVASCULAR: S1, S2. RESPIRATORY: As mentioned earlier. GI no nausea or vomiting. no dysuria. NERVOUS SYSTEM: No numbness or weakness. CURRENT MEDICATIONS: Current medications are reviewed and include: 1. Tylenol 650 q.6h p.r.n. 2. Xanax 1 mg daily. 3. Aspirin. 4. Lipitor 80 mg. 5. Rocephin 2 g IV daily. 6. Lasix drip at 15 mL/hour. 7. Apresoline 50 mg p.o. b.i.d. 8. NovoLog scale. 9. Levemir 35 q.h.s. 10.Lamictal. 11.Zaroxolyn 5 mg p.o. daily. 12.Lopressor. 13.Zoloft. 14.Potassium replacement protocol. PHYSICAL EXAM: GENERAL: Patient is alert, oriented x3. VITAL SIGNS: Pulse 71, blood pressure 106/62, respirations 18. Temperature 97.7, pulse ox 94% on room air. HEENT is conjunctivae normal. Oral mucosa moist. NECK: No jugular venous distention. No carotid bruit. No lymph node enlargement. CARDIOVASCULAR: S1-S2, ejection systolic murmur. No S3, no S4. RESPIRATIONS: Breath sounds diminished in the bases. A few scattered rhonchi and crackles. ABDOMEN: Soft, obese, nontender. LEGS: Bilateral leg edema. Examination of the scrotum, significant swelling with some purulent secretions around the Machado catheter. NERVOUS SYSTEM: Mild diffuse weakness. LAB STUDIES: WBC 11.1, hemoglobin is 8.2, sodium 132, potassium 2.8. ASSESSMENT: 1. Congestive heart failure acute exacerbation with acute on chronic diastolic dysfunction, ejection fraction 50-55 percent. 2. Acute prerenal failure with acute acute tubular necrosis. 3. Cardiorenal syndrome. 4. Scrotal edema, significant. 5. Obesity with BMI 43.3. 6. Increased WBC. 7. Rule out urinary tract infection. 8. Anemia, normocytic. 9. Hyponatremia. 10.Severe hypokalemia. 11.Elevated troponin, possibly secondary versus kidney disease. 12.Hypertension. 13.Diabetes mellitus type 2. 14.Hyperlipidemia. 15.FULL CODE. RECOMMENDATIONS AND DISCUSSION: This 58-year-old gentleman who presented with multiple complex medical issues, we will monitor the patient closely, continue the current medications, management and symptomatic treatment. Otherwise I recommend continue with diuretics and continue to monitor. Continue empiric antibiotics. Infectious Disease has been consulted. I would also obtain cultures and continue the rest of medications. Repeat labs will be ordered. Prognosis guarded because of multiple complex medical issues. PT/OT also will be consulted and possible ECF rehab also will be explored. See orders for details. Further recommendations to follow. MMODL / IJN: [id number] /
--- NOTE | 2019-02-01 23:35 | P.PN ---
Subjective Progress Note Date: 02/01/19 58-year-old male with multiple medical troubles including diabetes peripheral vascular disease and is a relates to difficulties with mental illness in had a suicide attempt with injury to his left arm.The patient underwent surgical repair to the left wrist lacerations. He has been released from the psychiatric unit with improvement of his condition after medication changes. He overspending having increasing amounts of edema with progressive scrotal and lower extremity edema. He was in the emergency center last week with evidence of the scrotal edema. No evidence of any hydrocele or strangulation was noted was referred back to his primary care physician for his ongoing and worsening edema. The patient became extremely uncomfortable was having difficulties with urination due to the very swollen scrotum and pressure on the penis. Testicles he has now been admitted for acute on chronic renal failure, extensive edema including extensive scrotal edema. The patient has had worsening of the lower extremity edema and has developed blistering to the right lower extremity and has ongoing ulceration to the prior amputation site to the left great toe. With these issues the consult has been requested. The patient is seen with the vascular surgeon. The patient relates he is very uncomfortable because of the extensive scrotal swelling which fortunately there's been some improvement because of Machado catheter was placed. Patient does not believe he has had high- grade fever chills or rigors but feels very poorly. 01/30/2019 patient is feeling slightly better today. He. His parents are present and have many questions that are answered to the best of this provider's ability.only pain and discomfort is from the large scrotal swelling which has improved slightly today 02/01/2019 reveals the patient be feeling somewhat better. Pain is improved. Shortness swelling is improved. However not remarkably so. But the anasarca has improved from the abdominal wall onto his legs with good urinary output with the Lasix intravenous infusion and metolazone. Is being followed by nephrology. Objective - Vital Signs Vital signs: Vital Signs Temp 97.7 F 02/01/19 16:00 Pulse 71 02/01/19 16:00 Resp 18 02/01/19 16:00 BP 106/62 02/01/19 16:00 Pulse Ox 95 02/01/19 16:00 Intake & Output 02/01/19 02/01/19 02/02/19 06:59 18:59 06:59 Intake Total 200 100 Output Total 3700 6950 Balance -3500 -6850 Weight 137 kg Intake: Intake, IV Titration 200 100 Amount Furosemide 100 mg In 200 100 Sodium Chloride 0.9% 90 ml @ 15 MG/HR 15 mls/hr IV .Q6H40M [facility] Rx#: [id number] Output: Urine 3700 6950 Uretheral ([place]) 900 2700 Other: Voiding Method Indwelling Catheter Indwelling Catheter # Voids 600 - Exam Obese 58-year-old male who is a less anxious and less short of breath is mildly sedated HEENT: Anicteric conjunctiva are pink and moist nasal mucosa grossly intact without significant lesions, there is no thrush. Neck: The neck is supple without significant lymphadenopathy or thyromegaly. Lungs: Symmetrical air entry is noted basilar crackles are noted expiratory wheezing is heard no bronchial sounds dullness or egophony Heart: Irregular with a positive S4 no murmur click or rub PMI is nondisplaced Abdomen: Obese Positive bowel sounds soft and nontender without palpable masses or organomegaly. There was no guarding or rebound. Extremities: The upper extremities have no open lesions IV site is intact. Lower extremities show evidence of the extensive edema is evidence of anasarca with edema up to the abdominal wall and evidence of the extensive scrotal edema. There is no evidence of any skin breakdown at this time. Machado catheter is in place which patient relates is given him significant relief of discomfort With edema right foot is developed multiple blisters which cultures are obtained. The ulceration to left great toe status post the distal amputation is noted. Neuro: Awake alert oriented to person place and time. There are no acute new gross focal sensory motor deficits. - Labs CBC & Chem 7: 02/01/19 06:25 02/01/19 06:25 Labs: Abnormal Lab Results - Last 24 Hours (Table) 02/01/19 02/01/19 02/01/19 Range/Units 05:59 06:25 06:25 WBC 10.8 H (3.8-10.6) k/uL RBC 3.33 L (4.30-5.90) m/uL Hgb 8.6 L (13.0-17.5) gm/dL Hct 29.4 L (39.0-53.0) % MCHC 29.1 L (31.0-37.0) g/dL RDW 16.6 H (11.5-15.5) % Neutrophils # 8.7 H (1.3-7.7) k/uL Lymphocytes # 0.8 L (1.0-4.8) k/uL Sodium 135 L (137-145) mmol/L Potassium 2.8 L (3.5-5.1) mmol/L Chloride 96 L (98-107) mmol/L BUN 58 H (9-20) mg/dL Creatinine 1.95 H (0.66-1.25) mg/dL Glucose 131 H (74-99) mg/dL POC Glucose (mg/dL) 139 H (75-99) mg/dL 02/01/19 02/01/19 02/01/19 Range/Units 12:10 17:24 20:23 WBC (3.8-10.6) k/uL RBC (4.30-5.90) m/uL Hgb (13.0-17.5) gm/dL Hct (39.0-53.0) % MCHC (31.0-37.0) g/dL RDW (11.5-15.5) % Neutrophils # (1.3-7.7) k/uL Lymphocytes # (1.0-4.8) k/uL Sodium (137-145) mmol/L Potassium (3.5-5.1) mmol/L Chloride (98-107) mmol/L BUN (9-20) mg/dL Creatinine (0.66-1.25) mg/dL Glucose (74-99) mg/dL POC Glucose (mg/dL) 150 H 184 H 216 H (75-99) mg/dL Microbiology - Last 24 Hours (Table) 02/01/19 12:13 Catheter Tip Culture - Preliminary Catheter Tip Laboratory Results WBC 10.8 k/uL (3.8-10.6) H 02/01/19 06:25 RBC 3.33 m/uL (4.30-5.90) L 02/01/19 06:25 Hgb 8.6 gm/dL (13.0-17.5) L 02/01/19 06:25 Hct 29.4 % (39.0-53.0) L 02/01/19 06:25 MCV 88.2 fL (80.0-100.0) 02/01/19 06:25 MCH 25.7 pg (25.0-35.0) 02/01/19 06:25 MCHC 29.1 g/dL (31.0-37.0) L 02/01/19 06:25 RDW 16.6 % (11.5-15.5) H 02/01/19 06:25 Plt Count 443 k/uL (150-450) 02/01/19 06:25 Neutrophils % 81 % 02/01/19 06:25 Lymphocytes % 8 % 02/01/19 06:25 Monocytes % 6 % 02/01/19 06:25 Eosinophils % 5 % 02/01/19 06:25 Basophils % 0 % 02/01/19 06:25 Neutrophils # 8.7 k/uL (1.3-7.7) H 02/01/19 06:25 Lymphocytes # 0.8 k/uL (1.0-4.8) L 02/01/19 06:25 Monocytes # 0.6 k/uL (0-1.0) 02/01/19 06:25 Eosinophils # 0.5 k/uL (0-0.7) 02/01/19 06:25 Basophils # 0.0 k/uL (0-0.2) 02/01/19 06:25 Hypochromasia Marked 01/31/19 06:12 Poikilocytosis Slight 01/31/19 06:12 Anisocytosis Slight 01/31/19 06:12 PT 12.7 sec (9.0-12.0) H 01/29/19 08:48 INR 1.2 (<1.2) H 01/29/19 08:48 APTT 27.6 sec (22.0-30.0) 01/29/19 08:48 Sodium 135 mmol/L (137-145) L 02/01/19 06:25 Potassium 2.8 mmol/L (3.5-5.1) L 02/01/19 06:25 Chloride 96 mmol/L (98-107) L 02/01/19 06:25 Carbon Dioxide 30 mmol/L (22-30) 02/01/19 06:25 Anion Gap 9 mmol/L 02/01/19 06:25 BUN 58 mg/dL (9-20) H 02/01/19 06:25 Creatinine 1.95 mg/dL (0.66-1.25) H 02/01/19 06:25 Est GFR (CKD-EPI)AfAm 43 (>60 ml/min/1.73 sqM) 02/01/19 06:25 Est GFR (CKD-EPI)NonAf 37 (>60 ml/min/1.73 sqM) 02/01/19 06:25 Glucose 131 mg/dL (74-99) H 02/01/19 06:25 POC Glucose (mg/dL) 216 mg/dL (75-99) H 02/01/19 20:23 POC Glu Apple Packing Header ID Magnolia Schroeder 02/01/19 20:[address] Glu mg/dL 183 01/29/19 08:48 Hemoglobin A1c 8.0 % (4.0-6.0) H 01/29/19 08:48 Plasma Lactic Acid [place] 1.1 mmol/L (0.7-2.0) 01/29/19 23:46 Calcium 8.7 mg/dL (8.4-10.2) 02/01/19 06:25 Magnesium 1.7 mg/dL (1.6-2.3) 02/01/19 06:25 Iron 20 ug/dL (65-175) L 01/29/19 14:35 TIBC 308 ug/dL (228-460) 01/29/19 14:35 Iron Saturation 6.49 (15.00-50.00) L 01/29/19 14:35 Ferritin 67.7 ng/mL (22.0-322.0) 01/29/19 14:35 Total Bilirubin 0.6 mg/dL (0.2-1.3) 01/29/19 08:48 AST 21 U/L (17-59) 01/29/19 08:48 ALT 60 U/L (21-72) 01/29/19 08:48 Alkaline Phosphatase 154 U/L (38-126) H 01/29/19 08:48 Troponin I 0.054 ng/mL (0.000-0.034) H* 01/29/19 20:28 NT-Pro-B Natriuret Pep 5210 pg/mL 01/29/19 08:48 Total Protein 6.0 g/dL (6.3-8.2) L 01/29/19 08:48 Albumin 2.9 g/dL (3.5-5.0) L 01/29/19 08:48 Urine Color Yellow 01/29/19 09:01 Urine Appearance Clear (Clear) 01/29/19 09:01 Urine pH 5.0 (5.0-8.0) 01/29/19 09:01 Ur Specific [place] 1.012 (1.001-1.035) 01/29/19 09:01 Urine Protein Trace (Negative) H 01/29/19 09:01 Urine Glucose (UA) Negative (Negative) 01/29/19 09:01 Urine Ketones Negative (Negative) 01/29/19 09:01 Urine Blood Negative (Negative) 01/29/19 09:01 Urine Nitrite Negative (Negative) 01/29/19 09:01 Urine Bilirubin Negative (Negative) 01/29/19 09:01 Urine Urobilinogen <2.0 mg/dL (<2.0) 01/29/19 09:01 Ur Leukocyte Esterase Negative (Negative) 01/29/19 09:01 Microbiology 02/01/19 12:13 Catheter Tip Catheter Tip Culture - Preliminary 01/29/19 17:30 Foot - Left Gram Stain - Final 01/29/19 17:30 Foot - Left Wound Culture - Final Enterobacter hormaechei Assessment and Plan (1) CHF (congestive heart failure) Current Visit: Yes Status: Acute Code(s): I50.9 - HEART FAILURE, UNSPECIFIED SNOMED Code(s): 84453637 (2) SOB (shortness of breath) Current Visit: Yes Status: Acute Code(s): R06.02 - SHORTNESS OF BREATH SNOMED Code(s): 342848960 (3) Scrotal edema Current Visit: No Status: Acute Code(s): N50.89 - OTHER SPECIFIED DISORDERS OF THE MALE GENITAL ORGANS SNOMED Code(s): 26800667 (4) Laceration of left wrist Current Visit: No Status: Acute Code(s): S61.512A - LACERATION WITHOUT FOREIGN BODY OF LEFT WRIST, INIT ENCNTR SNOMED Code(s): 04770916714973804 (5) Foot ulcer due to secondary DM Narrative/Plan: 58-year-old male presents to Hospital feeling very poorly. He said extensive edema that has been worsening over many days. His developed extensive scrotal edema to the with urination and lower extremity edema is not resulting in blisters on the right foot with some ulceration. The patient has not been receiving care to the left great toe amputation site which has evidence of some eschar. The patient is been seen by the vascular surgeon no plans for surgical intervention at this time. Therahoney to the left great toe as planned. Absorptive dressing to the right foot and rapid place for now. Cultures obtained from the blister fluid. Antibiotic therapy is initiate with cefepime to give us coverage for his prior baseline pathogens including MSSA. He does not have a history of MRSA. To the scrotum the zinc product can be applied to prevent any further discomforts would also help with some of the irritation is having from the extensive scrotal edema. Therahoney product will also be applied to the left wrist laceration site that is evidence slough. We'll expect some improvement with alteration of the wound care to the wrist 01/30/2019 the patient is feeling slightly better today, less anxious and resting well. Pain is improved but still has a significant discomfort to the scrotum that is still quite swollen but is less tight than yesterday, there is no open ulcerations of the scrotum. The left wrist left foot and right foot ulcerations are being treated and are slightly improved today. Wound cultures pending gram-negative bacilli is seen. 02/01/2019 patient is improvement overall. Wound culture is noted Enterobacter is found antibiotic therapy is transitioned to Rocephin. Local wound care continues to the foot wounds. To the scrotum continue elevation and zinc cream is applied to the entire scrotum to prevent further difficulty. The wrist ulcers treated with a therahoney and is improving also. Current Visit: Yes Status: Acute Code(s): E13.621 - OTHER SPECIFIED DIABETES MELLITUS WITH FOOT ULCER; L97.509 - NON-PRESSURE CHRONIC ULCER OTH PRT UNSP FOOT W UNSP SEVERITY SNOMED Code(s): 8536425
[2019-02-02] MEDS: HEPARIN SODIUM,PORCINE 5,000 UNIT/ML 1 ML VIAL SQ SCH ×3 (01:31→21:27)
[2019-02-02 06:34] LABS: Glucose,Whole Blood 179 mg/dL (75-99)
[2019-02-02 06:46] LABS: Anisocytosis Slight; Basophils % (A) 0 %; Eosinophils # (A) 0.5 k/uL (0-0.7); Eosinophils % (A) 4 %; HCT 30.1 % (39.0-53.0); HGB 8.9 gm/dL (13.0-17.5); Hypochromasia Marked; Lymphocytes # (A) 0.9 k/uL (1.0-4.8); Lymphocytes % (A) 7 %; MCH 26.2 pg (25.0-35.0); MCHC 29.7 g/dL (31.0-37.0); MCV 88.3 fL (80.0-100.0); Monocytes # (A) 0.6 k/uL (0-1.0); Monocytes % (A) 5 %; Neutrophils # (A) 10.2 k/uL (1.3-7.7); Neutrophils % (A) 83 %; Platelet Count 449 k/uL (150-450); Poikilocytosis Slight; RBC 3.41 m/uL (4.30-5.90); RDW 16.6 % (11.5-15.5); WBC 12.3 k/uL (3.8-10.6)
[2019-02-02 07:02] LABS: Calcium 8.7 mg/dL (8.4-10.2); Magnesium 1.8 mg/dL (1.6-2.3); Potassium 3.1 mmol/L (3.5-5.1)
[2019-02-02 07:18] LABS: INR 1.4 (<1.2); Prothrombin Time 14.5 sec (9.0-12.0)
[2019-02-02] MEDS: METOLAZONE 5 MG TAB PO SCH (08:11)
[2019-02-02] MEDS: METOPROLOL TARTRATE 25 MG TAB PO SCH ×2 (08:12→21:28)
[2019-02-02] MEDS: INSULIN ASPART (NovoLOG) 100 UNIT/ML VIAL SQ SCH ×4 (08:12→21:27)
[2019-02-02] MEDS: ALPRAZolam 1 MG TAB PO SCH (08:12)
[2019-02-02] MEDS: ASPIRIN 81 MG PO SCH (08:12)
[2019-02-02] MEDS: SERTRALINE 50 MG TAB PO SCH (08:12)
[2019-02-02] MEDS: FUROSEMIDE 100 MG in SODIUM CHLORIDE 0.9% 90 ML IV SCH ×2 (08:12→17:28)
[2019-02-02] MEDS: hydrALAZINE HCL 50 MG TAB PO SCH ×2 (08:12→21:27)
[2019-02-02] MEDS: INSULIN DETEMIR (LEVEMIR) 100 UNIT/ML SYR SQ SCH (08:13)
[2019-02-02 12:07] LABS: Glucose,Whole Blood 196 mg/dL (75-99)
[2019-02-02] MEDS: POTASSIUM CHLORIDE ER 20 MEQ TAB.ER PO SCH ×2 (12:32→14:26)
--- NOTE | 2019-02-02 13:24 | P.PN ---
Subjective Patient is seen in follow-up for acute kidney injury. Renal function is stable. Creatinine 1.9 today. Patient is still quite edematous. He is maintained on Lasix drip at 15 mL an hour. Urine output documented at 11 L in the last 24 hours. Denies chest pain or shortness of breath. No vomiting or diarrhea. Vital signs are stable. General: The patient appeared well nourished and normally developed. HEENT: Head exam is unremarkable. Neck is without jugular venous distension. LUNGS: Breath sounds decreased. HEART: Rate and Rhythm are regular. First and second heart sounds normal. No murmurs, rubs or gallops. ABDOMEN: Abdominal exam reveals normal bowel sounds. Non-tender and non- distended. EXTREMITITES: 1+ edema. Severe scrotal edema noted. Objective - Vital Signs Vital signs: Vital Signs Temp 97.0 F L 02/02/19 11:50 Pulse 74 02/02/19 11:50 Resp 20 02/02/19 11:50 BP 117/68 02/02/19 11:50 Pulse Ox 92 L 02/02/19 11:50 Intake & Output 02/01/19 02/02/19 02/02/19 18:59 06:59 18:59 Intake Total 100 200 540 Output Total 6950 4100 900 Balance -6850 -3900 -360 Weight 135 kg Intake: Intake, IV Titration 100 200 Amount Cefepime 2 gm In Sodium 100 Chloride 0.9% 100 ml @ 200 mls/hr IVPB Q8HR [facility] Rx#:[id number] Furosemide 100 mg In 100 100 Sodium Chloride 0.9% 90 ml @ 15 MG/HR 15 mls/hr IV .Q6H40M [facility] Rx#: [id number] Oral 0 540 Output: Urine 6950 4100 900 Uretheral ([place]) 2700 1200 Other: Voiding Method Indwelling Catheter Indwelling Catheter Indwelling Catheter # Voids 0 # Bowel Movements 1 - Labs CBC & Chem 7: 02/02/19 06:17 02/02/19 06:17 Labs: Abnormal Lab Results - Last 24 Hours (Table) 02/01/19 02/01/19 02/02/19 Range/Units 17:24 20:23 06:17 WBC (3.8-10.6) k/uL RBC (4.30-5.90) m/uL Hgb (13.0-17.5) gm/dL Hct (39.0-53.0) % MCHC (31.0-37.0) g/dL RDW (11.5-15.5) % Neutrophils # (1.3-7.7) k/uL Lymphocytes # (1.0-4.8) k/uL PT 14.5 H (9.0-12.0) sec INR 1.4 H (<1.2) Sodium (137-145) mmol/L Potassium (3.5-5.1) mmol/L Chloride (98-107) mmol/L Carbon Dioxide (22-30) mmol/L BUN (9-20) mg/dL Creatinine (0.66-1.25) mg/dL Glucose (74-99) mg/dL POC Glucose (mg/dL) 184 H 216 H (75-99) mg/dL 02/02/19 02/02/19 02/02/19 Range/Units 06:17 06:17 06:17 WBC 12.3 H (3.8-10.6) k/uL RBC 3.41 L (4.30-5.90) m/uL Hgb 8.9 L (13.0-17.5) gm/dL Hct 30.1 L (39.0-53.0) % MCHC 29.7 L (31.0-37.0) g/dL RDW 16.6 H (11.5-15.5) % Neutrophils # 10.2 H (1.3-7.7) k/uL Lymphocytes # 0.9 L (1.0-4.8) k/uL PT (9.0-12.0) sec INR (<1.2) Sodium 135 L (137-145) mmol/L Potassium 3.1 L (3.5-5.1) mmol/L Chloride 93 L (98-107) mmol/L Carbon Dioxide 33 H (22-30) mmol/L BUN 59 H (9-20) mg/dL Creatinine 1.90 H (0.66-1.25) mg/dL Glucose 168 H (74-99) mg/dL POC Glucose (mg/dL) 179 H (75-99) mg/dL 02/02/19 Range/Units 11:37 WBC (3.8-10.6) k/uL RBC (4.30-5.90) m/uL Hgb (13.0-17.5) gm/dL Hct (39.0-53.0) % MCHC (31.0-37.0) g/dL RDW (11.5-15.5) % Neutrophils # (1.3-7.7) k/uL Lymphocytes # (1.0-4.8) k/uL PT (9.0-12.0) sec INR (<1.2) Sodium (137-145) mmol/L Potassium (3.5-5.1) mmol/L Chloride (98-107) mmol/L Carbon Dioxide (22-30) mmol/L BUN (9-20) mg/dL Creatinine (0.66-1.25) mg/dL Glucose (74-99) mg/dL POC Glucose (mg/dL) 196 H (75-99) mg/dL Microbiology - Last 24 Hours (Table) 02/01/19 12:13 Wound Culture - Preliminary Catheter Site 02/01/19 12:13 Catheter Tip Culture - Preliminary Catheter Tip Assessment and Plan Plan: Assessment: 1. Acute kidney injury mostly prerenal secondary to cardiorenal syndrome. Creatinine 1.9 today. Baseline creatinine near 1. UA is quite benign. U ltrasound from last month revealed no evidence of hydronephrosis. 2. Dyspnea secondary to volume overload. Improving. 3. Insulin-dependent diabetes mellitus. 4. Anemia. Severe iron deficiency noted. Status post 3 doses of IV iron. 5. Benign hypertension. 6. 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 7. Hypomagnesemia secondary to diuresis. 8. Diastolic CHF. 9. Hypokalemia secondary to diuresis. Plan: Maintain Lasix drip at 15 mL an hour. Continue metolazone 5 mg daily. Low-salt diet and 1.5 L fluid restriction. Daily weights. Avoid nephrotoxins. Replace potassium. 100 mEq today. Replace magnesium. 1 g IV today. Repeat electrolytes in the morning.
[2019-02-02] MEDS ORDERED: MAGNESIUM SULFATE-D5W PMX 1 GM in DEXTROSE/WATER 1 100ML.BAG IVPB ONE (14:00)
--- NOTE | 2019-02-02 15:27 | P.PN ---
Subjective Progress Note Date: 02/02/19 Is a 58-year-old gentleman who presented to the hospital with worsening peripheral edema and shortness of breath. He was seen and examined today lying flat in bed, breathing is much improved, he continues to have a significant amount of peripheral edema and is quite sleepy overall. His parents are at bedside. He continues to have significant edema in his scrotal area however it is improving from admission overall. He continues to put out excellent urine output, his weight is overall down 2 kg today. Blood cell count 12.3, hemoglobin 8.9, platelet count 449. Sodium 135, potassium 3.1, BUN 59 and creatinine and 0.9. Mag level I.8. Objective - Vital Signs Vital signs: Vital Signs Temp 97.0 F L 02/02/19 11:50 Pulse 74 02/02/19 11:50 Resp 20 02/02/19 11:50 BP 117/68 02/02/19 11:50 Pulse Ox 92 L 02/02/19 11:50 Intake & Output 02/01/19 02/02/19 02/02/19 18:59 06:59 18:59 Intake Total 100 200 780 Output Total 6950 4100 2250 Balance -6850 -3900 -1470 Weight 135 kg Intake: Intake, IV Titration 100 200 Amount Cefepime 2 gm In Sodium 100 Chloride 0.9% 100 ml @ 200 mls/hr IVPB Q8HR [facility] Rx#:[id number] Furosemide 100 mg In 100 100 Sodium Chloride 0.9% 90 ml @ 15 MG/HR 15 mls/hr IV .Q6H40M [facility] Rx#: [id number] Oral 0 780 Output: Urine 6950 4100 2250 Uretheral ([place]) 2700 1200 1350 Other: Voiding Method Indwelling Catheter Indwelling Catheter Indwelling Catheter # Voids 0 # Bowel Movements 1 - Exam GENERAL EXAM: Pleasant 58-year-old gentleman. Sleepy , comfortable in no apparent distress. On 3 L nasal cannula. HEAD: Normocephalic. EYES: Normal reaction of pupils, equal size. NOSE: Clear with pink turbinates. THROAT: No erythema or exudates. NECK: No masses, no JVD. CHEST: No chest wall deformity. LUNGS: Fine crackles anteriorly heard CVS: S1 and S2 normal with no audible murmur, regular rhythm. ABDOMEN: No hepatosplenomegaly, normal bowel sounds, no guarding or rigidity., Scrotal edema SPINE: No scoliosis or deformity SKIN: No rashes CENTRAL NERVOUS SYSTEM: No focal deficits, tone is normal in all 4 extremities. EXTREMITIES: There is 2+ peripheral edema. Patient has a dressing to the left great toe which had been amputated, blackened area to the right great toe. - Labs CBC & Chem 7: 02/02/19 06:17 02/02/19 06:17 Labs: Abnormal Lab Results - Last 24 Hours (Table) 02/01/19 02/01/19 02/02/19 Range/Units 17:24 20:23 06:17 WBC (3.8-10.6) k/uL RBC (4.30-5.90) m/uL Hgb (13.0-17.5) gm/dL Hct (39.0-53.0) % MCHC (31.0-37.0) g/dL RDW (11.5-15.5) % Neutrophils # (1.3-7.7) k/uL Lymphocytes # (1.0-4.8) k/uL PT 14.5 H (9.0-12.0) sec INR 1.4 H (<1.2) Sodium (137-145) mmol/L Potassium (3.5-5.1) mmol/L Chloride (98-107) mmol/L Carbon Dioxide (22-30) mmol/L BUN (9-20) mg/dL Creatinine (0.66-1.25) mg/dL Glucose (74-99) mg/dL POC Glucose (mg/dL) 184 H 216 H (75-99) mg/dL 02/02/19 02/02/19 02/02/19 Range/Units 06:17 06:17 06:17 WBC 12.3 H (3.8-10.6) k/uL RBC 3.41 L (4.30-5.90) m/uL Hgb 8.9 L (13.0-17.5) gm/dL Hct 30.1 L (39.0-53.0) % MCHC 29.7 L (31.0-37.0) g/dL RDW 16.6 H (11.5-15.5) % Neutrophils # 10.2 H (1.3-7.7) k/uL Lymphocytes # 0.9 L (1.0-4.8) k/uL PT (9.0-12.0) sec INR (<1.2) Sodium 135 L (137-145) mmol/L Potassium 3.1 L (3.5-5.1) mmol/L Chloride 93 L (98-107) mmol/L Carbon Dioxide 33 H (22-30) mmol/L BUN 59 H (9-20) mg/dL Creatinine 1.90 H (0.66-1.25) mg/dL Glucose 168 H (74-99) mg/dL POC Glucose (mg/dL) 179 H (75-99) mg/dL 02/02/19 Range/Units 11:37 WBC (3.8-10.6) k/uL RBC (4.30-5.90) m/uL Hgb (13.0-17.5) gm/dL Hct (39.0-53.0) % MCHC (31.0-37.0) g/dL RDW (11.5-15.5) % Neutrophils # (1.3-7.7) k/uL Lymphocytes # (1.0-4.8) k/uL PT (9.0-12.0) sec INR (<1.2) Sodium (137-145) mmol/L Potassium (3.5-5.1) mmol/L Chloride (98-107) mmol/L Carbon Dioxide (22-30) mmol/L BUN (9-20) mg/dL Creatinine (0.66-1.25) mg/dL Glucose (74-99) mg/dL POC Glucose (mg/dL) 196 H (75-99) mg/dL Microbiology - Last 24 Hours (Table) 02/01/19 12:13 Gram Stain - Preliminary Catheter Site Wound Culture - Preliminary 02/01/19 12:13 Catheter Tip Culture - Preliminary Catheter Tip Assessment and Plan Plan: Assessment and plan #1 diastolic congestive heart failure acute on chronic #2 Acute on chronic renal failure #3 acute on chronic renal failure #4 hypertension #5 hyperlipidemia #6 morbid obesity #7 diabetes #8 left toe gangrene status post amputation in December of this year #9 anemia Plan From cardiology's perspective, we'll recommend to continue current IV Lasix drip dose, continue to monitor intake and output along with daily weights and daily lytes BUN and creatinine. DNP note has been reviewed, I agree with a documented findings and plan of care. Patient was seen and examined.
[2019-02-02] MEDS ORDERED: POTASSIUM CHLORIDE ER 20 MEQ TAB.ER PO ONE (16:00)
--- NOTE | 2019-02-02 16:03 | PN ---
PROGRESS NOTE DATE OF SERVICE: 02/02/2019 This 58 gentleman admitted with CHF, acute exacerbation, with acute on chronic diastolic dysfunction, ejection fraction 50% to 55%, is on IV Lasix drip at 15 mL/hour. The patient is diuresing well at this time and his weight has also gone down by at least 4 kg. The patient also had leg wounds, the left big toe as well as right dorsum of the foot. Enterobacter was grown from the culture. Patient is on broad-spectrum IV antibiotics. The patient also had significant scrotal edema and swelling. The patient is being followed by multiple consultants at this time. Creatinine is 1.90. Past medical history reviewed. REVIEW OF SYSTEMS: CARDIOVASCULAR SYSTEM: No angina, palpitations. RESPIRATORY SYSTEM: As mentioned earlier. GI: As mentioned earlier. : No dysuria or retention. NERVOUS SYSTEM: No numbness, weakness. CURRENT MEDICATIONS: Reviewed. They include: 1. Tylenol 650 q.6 p.r.n. 2. Xanax 1 mg p.o. daily. 3. Aspirin 81 mg daily. 4. Lipitor 80 mg at bedtime. 5. Tums 500 mg. 6. Rocephin 2 grams daily. 7. Lasix drip. 8. Heparin b.i.d. 9. Apresoline. 10.NovoLog scale. 11.Levemir 35 units subcutaneously daily. 12.Lamictal. 13.Zaroxolyn. 14.Lopressor. 15.Replacement protocol. 16.Zoloft. PHYSICAL EXAMINATION: Patient is alert, oriented x3. Pulse 74, blood pressure 117/68, respiration 20, temperature 97 degrees, pulse ox 92% on room air. HEENT: Conjunctivae normal. NECK: No jugular venous distention. CARDIOVASCULAR SYSTEM: S1, S2 muffled. RESPIRATORY SYSTEM: Breath sounds diminished at the bases bilaterally. A few scattered rhonchi and crackles. ABDOMEN: Soft, obese, nontender. LEGS: Bilateral leg edema. Significant scrotal edema present. NERVOUS SYSTEM: No focal deficit. LABS: WBC 12.3, hemoglobin 8.9, sodium 135, potassium 3.81. Creatinine is 1.90. ASSESSMENT: 1. Congestive heart failure, acute exacerbation, with acute on chronic diastolic dysfunction, ejection fraction 50% to 55%, on Lasix drip. 2. Acute renal failure with acute tubular necrosis, acute prerenal factors. 3. Cardiorenal syndrome. 4. Scrotal edema, significant. 5. Bilateral foot infection, ulcer and cellulitis. 6. Obesity with body mass index 43.3. 7. Enterobacter hormaechei grown from the cultures. 8. Increased white count. 9. Anemia, normocytic. 10.Rule out urinary tract infection. 11.Hypokalemia. 12.Elevated troponin, possibly secondary to kidney disease. 13.Hypertension. 14.Diabetes mellitus, type 2. 15.Hyperlipidemia. 16.Gait dysfunction. 17.FULL CODE. RECOMMENDATIONS AND DISCUSSION: In this 58-year-old gentleman who presented with multiple complex medical issues, we will monitor the patient closely, continue the current medications, continue with symptomatic treatment. I recommend continuing with IV antibiotics. Repeat cultures are pending at this time. Closely follow with Nephrology and Cardiology. Lasix drip is being continued. Otherwise, monitor insulin closely. Blood sugars are fairly well controlled at this time. Guarded prognosis because of multiple complex medical issues. Potassium supplementation. Further recommendations to follow. MMODL / IJN: [id number] /
[2019-02-02 16:41] LABS: Glucose,Whole Blood 147 mg/dL (75-99)
[2019-02-02 20:52] LABS: Glucose,Whole Blood 157 mg/dL (75-99)
[2019-02-02] MEDS: ATORVASTATIN 80 MG TAB PO SCH (21:27)
[2019-02-02] MEDS: lamoTRIgine 100 MG TAB PO SCH (21:28)
[2019-02-03] MEDS: FUROSEMIDE 100 MG in SODIUM CHLORIDE 0.9% 90 ML IV SCH ×4 (02:44→17:20)
[2019-02-03 06:13] LABS: Glucose,Whole Blood 123 mg/dL (75-99)
[2019-02-03 06:14] LABS: Anisocytosis Slight; Basophils % (A) 0 %; Eosinophils # (A) 0.4 k/uL (0-0.7); Eosinophils % (A) 3 %; HCT 30.5 % (39.0-53.0); HGB 9.3 gm/dL (13.0-17.5); Hypochromasia Marked; Lymphocytes % (A) 8 %; MCH 26.8 pg (25.0-35.0); MCHC 30.5 g/dL (31.0-37.0); MCV 88.2 fL (80.0-100.0); Mean Platelet Volume 7.1; Monocytes # (A) 0.7 k/uL (0-1.0); Monocytes % (A) 5 %; Neutrophils # (A) 10.9 k/uL (1.3-7.7); Neutrophils % (A) 83 %; Platelet Count 424 k/uL (150-450); Poikilocytosis Moderate; RBC 3.46 m/uL (4.30-5.90); RDW 16.1 % (11.5-15.5); WBC 13.2 k/uL (3.8-10.6)
[2019-02-03 06:16] LABS: Magnesium 1.8 mg/dL (1.6-2.3); Potassium 3.1 mmol/L (3.5-5.1)
[2019-02-03] MEDS: INSULIN ASPART (NovoLOG) 100 UNIT/ML VIAL SQ SCH ×4 (06:33→22:10)
[2019-02-03] MEDS: hydrALAZINE HCL 50 MG TAB PO SCH ×2 (08:36→20:32)
[2019-02-03] MEDS: ASPIRIN 81 MG PO SCH (08:37)
[2019-02-03] MEDS: HEPARIN SODIUM,PORCINE 5,000 UNIT/ML 1 ML VIAL SQ SCH ×2 (08:37→20:31)
[2019-02-03] MEDS: ALPRAZolam 1 MG TAB PO SCH (08:37)
[2019-02-03] MEDS: INSULIN DETEMIR (LEVEMIR) 100 UNIT/ML SYR SQ SCH (08:37)
[2019-02-03] MEDS: METOLAZONE 5 MG TAB PO SCH (08:37)
[2019-02-03] MEDS: SERTRALINE 50 MG TAB PO SCH (08:37)
[2019-02-03] MEDS: METOPROLOL TARTRATE 25 MG TAB PO SCH ×2 (08:37→20:32)
[2019-02-03 11:53] LABS: Glucose,Whole Blood 226 mg/dL (75-99)
[2019-02-03] MEDS ORDERED: POTASSIUM CHLORIDE ER 20 MEQ TAB.ER PO STA (12:55)
[2019-02-03] MEDS ORDERED: MAGNESIUM SULFATE-D5W PMX 1 GM in DEXTROSE/WATER 1 100ML.BAG IVPB ONE (12:55)
--- NOTE | 2019-02-03 12:55 | P.PN ---
Subjective Patient is seen in follow-up for acute kidney injury. Renal function is stable. Creatinine 1.82 today. Patient is still quite edematous. He is maintained on Lasix drip at 15 mL an hour. Urine output documented at 8 L in the last 24 hours. Denies chest pain or shortness of breath. No vomiting or diarrhea. Vital signs are stable. General: The patient appeared well nourished and normally developed. HEENT: Head exam is unremarkable. Neck is without jugular venous distension. LUNGS: Breath sounds decreased. HEART: Rate and Rhythm are regular. First and second heart sounds normal. No murmurs, rubs or gallops. ABDOMEN: Abdominal exam reveals normal bowel sounds. Non-tender and non- distended. EXTREMITITES: 1+ edema. Severe scrotal edema noted. Objective - Vital Signs Vital signs: Vital Signs Temp 96.6 F L 02/03/19 07:45 Pulse 80 02/03/19 07:45 Resp 20 02/03/19 07:45 BP 110/69 02/03/19 07:45 Pulse Ox 98 02/03/19 07:45 Intake & Output 02/02/19 02/03/19 02/03/19 18:59 06:59 18:59 Intake Total 1102 267 100 Output Total 3450 4550 Balance -2348 -4283 100 Weight 125.5 kg Intake: Intake, IV Titration 100 147 100 Amount Furosemide 100 mg In 100 147 100 Sodium Chloride 0.9% 90 ml @ 15 MG/HR 15 mls/hr IV .Q6H40M [facility] Rx#: [id number] Oral 1002 120 Output: Urine 3450 4550 Uretheral ([place]) 1350 1300 Other: Voiding Method Indwelling Catheter Indwelling Catheter Indwelling Catheter - Labs CBC & Chem 7: 02/03/19 05:17 02/03/19 05:17 Labs: Abnormal Lab Results - Last 24 Hours (Table) 02/02/19 02/02/19 02/03/19 Range/Units 16:39 20:51 05:17 WBC 13.2 H (3.8-10.6) k/uL RBC 3.46 L (4.30-5.90) m/uL Hgb 9.3 L (13.0-17.5) gm/dL Hct 30.5 L (39.0-53.0) % MCHC 30.5 L (31.0-37.0) g/dL RDW 16.1 H (11.5-15.5) % Neutrophils # 10.9 H (1.3-7.7) k/uL Sodium (137-145) mmol/L Potassium (3.5-5.1) mmol/L Chloride (98-107) mmol/L Carbon Dioxide (22-30) mmol/L BUN (9-20) mg/dL Creatinine (0.66-1.25) mg/dL Glucose (74-99) mg/dL POC Glucose (mg/dL) 147 H 157 H (75-99) mg/dL 02/03/19 02/03/19 02/03/19 Range/Units 05:17 06:11 11:46 WBC (3.8-10.6) k/uL RBC (4.30-5.90) m/uL Hgb (13.0-17.5) gm/dL Hct (39.0-53.0) % MCHC (31.0-37.0) g/dL RDW (11.5-15.5) % Neutrophils # (1.3-7.7) k/uL Sodium 136 L (137-145) mmol/L Potassium 3.1 L (3.5-5.1) mmol/L Chloride 87 L (98-107) mmol/L Carbon Dioxide 38 H (22-30) mmol/L BUN 58 H (9-20) mg/dL Creatinine 1.82 H (0.66-1.25) mg/dL Glucose 124 H (74-99) mg/dL POC Glucose (mg/dL) 123 H 226 H (75-99) mg/dL Microbiology - Last 24 Hours (Table) 02/01/19 12:13 Gram Stain - Final Catheter Site Wound Culture - Final 02/01/19 12:13 Catheter Tip Culture - Preliminary Catheter Tip Assessment and Plan Plan: Assessment: 1. Acute kidney injury mostly prerenal secondary to cardiorenal syndrome. Creatinine 1.82 today. Baseline creatinine near 1. UA is quite benign. Ultrasound from last month revealed no evidence of hydronephrosis. 2. Dyspnea secondary to volume overload. Improving. 3. Insulin-dependent diabetes mellitus. 4. Anemia. Severe iron deficiency noted. Status post 3 doses of IV iron. 5. Benign hypertension. Controlled. 6. 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 7. Hypomagnesemia secondary to diuresis. 8. Diastolic CHF. 9. Hypokalemia secondary to diuresis. Plan: Maintain Lasix drip at 15 mL an hour. Continue metolazone 5 mg daily. Low-salt diet and 1.5 L fluid restriction. Daily weights. Avoid nephrotoxins. Replace potassium. 100 mEq today. Replace magnesium. 1 g IV today. Repeat electrolytes in the morning.
--- NOTE | 2019-02-03 16:36 | P.PN ---
Subjective Progress Note Date: 02/03/19 Is a 58-year-old gentleman who presented to the hospital with worsening peripheral edema and shortness of breath. He was seen and examined today lying flat in bed, breathing is much improved, he continues to have a significant amount of peripheral edema and is quite sleepy overall. His parents are at bedside. He continues to have significant edema in his scrotal area however it is improving from admission overall. He continues to put out excellent urine output, his weight is overall down 2 kg today. Blood cell count 12.3, hemoglobin 8.9, platelet count 449. Sodium 135, potassium 3.1, BUN 59 and creatinine and 0.9. Mag level I.8. 02/03/2019 Patient was seen and examined this morning, his weight is down 10 pounds today, his creatinine is 1.8, continues overall to diurese well. Sodium 136, potassium 3.1, BUN 58 and creatinine 1.8. White blood cell count 13.2, hemoglobin 9.3 and a platelet count of 424. Objective - Vital Signs Vital signs: Vital Signs Temp 96.6 F L 02/03/19 07:45 Pulse 76 02/03/19 12:00 Resp 20 02/03/19 12:00 BP 111/69 02/03/19 12:00 Pulse Ox 99 02/03/19 12:00 Intake & Output 02/02/19 02/03/19 02/03/19 18:59 06:59 18:59 Intake Total 1102 267 580 Output Total 3450 4550 775 Balance -2348 -4283 -195 Weight 125.5 kg Intake: Intake, IV Titration 100 147 100 Amount Furosemide 100 mg In 100 147 100 Sodium Chloride 0.9% 90 ml @ 15 MG/HR 15 mls/hr IV .Q6H40M [facility] Rx#: [id number] Oral 1002 120 480 Output: Urine 3450 4550 775 Uretheral ([place]) 1350 1300 Other: Voiding Method Indwelling Catheter Indwelling Catheter Indwelling Catheter - Exam GENERAL EXAM: Pleasant 58-year-old gentleman. Sleepy , comfortable in no apparent distress. On 3 L nasal cannula. HEAD: Normocephalic. EYES: Normal reaction of pupils, equal size. NOSE: Clear with pink turbinates. THROAT: No erythema or exudates. NECK: No masses, no JVD. CHEST: No chest wall deformity. LUNGS: Fine crackles anteriorly heard CVS: S1 and S2 normal with no audible murmur, regular rhythm. ABDOMEN: No hepatosplenomegaly, normal bowel sounds, no guarding or rigidity., Scrotal edema SPINE: No scoliosis or deformity SKIN: No rashes CENTRAL NERVOUS SYSTEM: No focal deficits, tone is normal in all 4 extremities. EXTREMITIES: There is 2+ peripheral edema. Patient has a dressing to the left great toe which had been amputated, blackened area to the right great toe. - Labs CBC & Chem 7: 02/03/19 05:17 02/03/19 05:17 Labs: Abnormal Lab Results - Last 24 Hours (Table) 02/02/19 02/02/19 02/03/19 Range/Units 16:39 20:51 05:17 WBC 13.2 H (3.8-10.6) k/uL RBC 3.46 L (4.30-5.90) m/uL Hgb 9.3 L (13.0-17.5) gm/dL Hct 30.5 L (39.0-53.0) % MCHC 30.5 L (31.0-37.0) g/dL RDW 16.1 H (11.5-15.5) % Neutrophils # 10.9 H (1.3-7.7) k/uL Sodium (137-145) mmol/L Potassium (3.5-5.1) mmol/L Chloride (98-107) mmol/L Carbon Dioxide (22-30) mmol/L BUN (9-20) mg/dL Creatinine (0.66-1.25) mg/dL Glucose (74-99) mg/dL POC Glucose (mg/dL) 147 H 157 H (75-99) mg/dL 02/03/19 02/03/19 02/03/19 Range/Units 05:17 06:11 11:46 WBC (3.8-10.6) k/uL RBC (4.30-5.90) m/uL Hgb (13.0-17.5) gm/dL Hct (39.0-53.0) % MCHC (31.0-37.0) g/dL RDW (11.5-15.5) % Neutrophils # (1.3-7.7) k/uL Sodium 136 L (137-145) mmol/L Potassium 3.1 L (3.5-5.1) mmol/L Chloride 87 L (98-107) mmol/L Carbon Dioxide 38 H (22-30) mmol/L BUN 58 H (9-20) mg/dL Creatinine 1.82 H (0.66-1.25) mg/dL Glucose 124 H (74-99) mg/dL POC Glucose (mg/dL) 123 H 226 H (75-99) mg/dL Microbiology - Last 24 Hours (Table) 02/01/19 12:13 Gram Stain - Final Catheter Site Wound Culture - Final Assessment and Plan Plan: Assessment and plan #1 diastolic congestive heart failure acute on chronic #2 Acute on chronic renal failure #3 acute on chronic renal failure #4 hypertension #5 hyperlipidemia #6 morbid obesity #7 diabetes #8 left toe gangrene status post amputation in December of this year #9 anemia Plan From cardiology's perspective, we'll recommend to continue current IV Lasix drip dose, repeat chest x-ray tomorrow. Replace potassium and magnesium. DNP note has been reviewed, I agree with a documented findings and plan of care. Patient was seen and examined.
[2019-02-03 17:16] LABS: Glucose,Whole Blood 217 mg/dL (75-99)
[2019-02-03] MEDS: ATORVASTATIN 80 MG TAB PO SCH (20:32)
[2019-02-03] MEDS: lamoTRIgine 100 MG TAB PO SCH (20:32)
[2019-02-03 20:56] LABS: Glucose,Whole Blood 359 mg/dL (75-99)
--- NOTE | 2019-02-03 21:25 | PN ---
PROGRESS NOTE DATE OF SERVICE: 02/03/2019 This 58-year-old gentleman who was admitted CHF, acute exacerbation, is on Lasix drip at this time. The patient also had significant scrotal edema and some discharge also. No chest pain. No palpitations. No fever. PHYSICAL EXAMINATION: Alert and oriented x3. Pulse 82, blood pressure 105/62, respiration 20, temperature 96.6, pulse ox 94% on 2 L. HEENT: Conjunctivae normal. Oral mucosa moist. NECK: No jugular venous distention. No carotid bruit. No lymph node enlargement. CARDIOVASCULAR SYSTEM: S1, S2 muffled. RESPIRATORY SYSTEM: Breath sounds diminished at the bases. A few scattered rhonchi and crackles. ABDOMEN: Soft, obese. Significant scrotal edema present. LEGS: Bilateral leg edema. NERVOUS SYSTEM: Diffusely weak. LABS: WBC 13.2, hemoglobin 9.3. Sodium 136, potassium 3.9, creatinine is 1.86. ASSESSMENT: 1. Congestive heart failure, acute exacerbation, with acute on chronic diastolic dysfunction, ejection fraction 50% to 55%, on Lasix drip. 2. Acute renal failure with acute tubular necrosis, possible prerenal factors. 3. Cardiorenal syndrome. 4. Scrotal edema, significant. 5. Bilateral foot infection with ulcer and cellulitis. 6. Obesity with body mass index of 43.3. 7. Enterobacter hormaechei grown from the wound culture. 8. Increased white count. 9. Anemia, normocytic. 10.Possible urinary tract infection. 11.Hypokalemia. 12.Elevated troponin, possibly secondary to kidney disease. 13.Hypertension. 14.Diabetes mellitus, type 2. 15.Hyperlipidemia. 16.Gait dysfunction. 17.FULL CODE. RECOMMENDATIONS AND DISCUSSION: I recommend to continue current medications, continue with the monitoring, symptomatic treatment. Otherwise at this time I will continue to monitor, continue the antibiotics. Continue with the Lasix drip. Continue with cautious potassium supplementation. Closely follow with Nephrology. Guarded prognosis. Further recommendations to follow. MMODL / IJN: [id number] /
[2019-02-04] MEDS: FUROSEMIDE 100 MG in SODIUM CHLORIDE 0.9% 90 ML IV SCH ×4 (00:09→22:30)
[2019-02-04 06:12] LABS: Glucose,Whole Blood 167 mg/dL (75-99)
[2019-02-04] MEDS: INSULIN ASPART (NovoLOG) 100 UNIT/ML VIAL SQ SCH ×4 (06:49→21:19)
[2019-02-04 07:09] LABS: Anisocytosis Slight; Basophils % (A) 0 %; Eosinophils # (A) 0.3 k/uL (0-0.7); Eosinophils % (A) 2 %; HCT 30.6 % (39.0-53.0); HGB 9.2 gm/dL (13.0-17.5); Hypochromasia Marked; Lymphocytes % (A) 8 %; MCH 26.4 pg (25.0-35.0); MCHC 30.1 g/dL (31.0-37.0); MCV 87.5 fL (80.0-100.0); Monocytes # (A) 0.8 k/uL (0-1.0); Monocytes % (A) 6 %; Neutrophils # (A) 11.1 k/uL (1.3-7.7); Neutrophils % (A) 82 %; Platelet Count 445 k/uL (150-450); Poikilocytosis Moderate; RBC 3.49 m/uL (4.30-5.90); RDW 16.3 % (11.5-15.5); WBC 13.5 k/uL (3.8-10.6)
[2019-02-04 07:21] LABS: Magnesium 1.8 mg/dL (1.6-2.3); Potassium 3.3 mmol/L (3.5-5.1)
[2019-02-04] MEDS ORDERED: Potassium Replacement Protocol 1 EACH MISC MISCELLANE PRN (07:45)
[2019-02-04] MEDS: HEPARIN SODIUM,PORCINE 5,000 UNIT/ML 1 ML VIAL SQ SCH ×2 (08:49→21:19)
[2019-02-04] MEDS: METOPROLOL TARTRATE 25 MG TAB PO SCH ×2 (08:50→21:17)
[2019-02-04] MEDS: POTASSIUM CHLORIDE ER 20 MEQ TAB.ER PO SCH ×2 (08:50→09:45)
[2019-02-04] MEDS: ALPRAZolam 1 MG TAB PO SCH (08:50)
[2019-02-04] MEDS: SERTRALINE 50 MG TAB PO SCH (08:50)
[2019-02-04] MEDS: ASPIRIN 81 MG PO SCH (08:50)
[2019-02-04] MEDS: hydrALAZINE HCL 50 MG TAB PO SCH ×2 (08:50→21:17)
[2019-02-04] MEDS: INSULIN DETEMIR (LEVEMIR) 100 UNIT/ML SYR SQ SCH (08:50)
[2019-02-04] MEDS: METOLAZONE 5 MG TAB PO SCH (08:50)
--- NOTE | 2019-02-04 10:53 | P.PN ---
Subjective Patient is seen in follow-up for acute kidney injury. Renal function is stable. Creatinine 1.77 today. Patient is still quite edematous but significantly improved since admission. He is maintained on Lasix drip at 15 mL an hour. Urine output documented at 3.7 L in the last 24 hours. Weight is trending down. Denies chest pain or shortness of breath. No vomiting or diarrhea. Vital signs are stable. General: The patient appeared well nourished and normally developed. HEENT: Head exam is unremarkable. Neck is without jugular venous distension. LUNGS: Breath sounds decreased. HEART: Rate and Rhythm are regular. First and second heart sounds normal. No murmurs, rubs or gallops. ABDOMEN: Abdominal exam reveals normal bowel sounds. Non-tender and non- distended. EXTREMITITES: 1+ edema. Scrotal edema noted. Improved since admission. Objective - Vital Signs Vital signs: Vital Signs Temp 98.1 F 02/04/19 08:00 Pulse 90 02/04/19 08:00 Resp 18 02/04/19 08:00 BP 116/72 02/04/19 08:00 Pulse Ox 99 02/04/19 08:00 Intake & Output 02/03/19 02/04/19 02/04/19 18:59 06:59 18:59 Intake Total 1130.75 590 Output Total 1575 2200 1700 Balance -444.25 -1610 -1700 Weight 122 kg Intake: Intake, IV Titration 170.75 350 Amount Furosemide 100 mg In 170.75 200 Sodium Chloride 0.9% 90 ml @ 15 MG/HR 15 mls/hr IV .Q6H40M [facility] Rx#: [id number] Magnesium Sulfate-D5w Pmx 100 1 gm In Dextrose/Water 1 100ml.bag @ 100 mls/hr IVPB ONCE ONE Rx#: [id number] cefTRIAXone 2 gm In 50 Sodium Chloride 0.9% 50 ml @ 100 mls/hr IVPB Q24HR@2100 [facility] Rx#: [id number] Oral 960 240 Output: Urine 1575 2200 1700 Other: Voiding Method Indwelling Catheter Indwelling Catheter Indwelling Catheter - Labs CBC & Chem 7: 02/04/19 06:35 02/04/19 06:35 Labs: Abnormal Lab Results - Last 24 Hours (Table) 02/03/19 02/03/19 02/03/19 Range/Units 11:46 17:06 20:54 WBC (3.8-10.6) k/uL RBC (4.30-5.90) m/uL Hgb (13.0-17.5) gm/dL Hct (39.0-53.0) % MCHC (31.0-37.0) g/dL RDW (11.5-15.5) % Neutrophils # (1.3-7.7) k/uL Sodium (137-145) mmol/L Potassium (3.5-5.1) mmol/L Chloride (98-107) mmol/L Carbon Dioxide (22-30) mmol/L BUN (9-20) mg/dL Creatinine (0.66-1.25) mg/dL Glucose (74-99) mg/dL POC Glucose (mg/dL) 226 H 217 H 359 H (75-99) mg/dL 02/04/19 02/04/19 02/04/19 Range/Units 06:10 06:35 06:35 WBC 13.5 H (3.8-10.6) k/uL RBC 3.49 L (4.30-5.90) m/uL Hgb 9.2 L (13.0-17.5) gm/dL Hct 30.6 L (39.0-53.0) % MCHC 30.1 L (31.0-37.0) g/dL RDW 16.3 H (11.5-15.5) % Neutrophils # 11.1 H (1.3-7.7) k/uL Sodium 135 L (137-145) mmol/L Potassium 3.3 L (3.5-5.1) mmol/L Chloride 88 L (98-107) mmol/L Carbon Dioxide 40 H (22-30) mmol/L BUN 62 H (9-20) mg/dL Creatinine 1.77 H (0.66-1.25) mg/dL Glucose 153 H (74-99) mg/dL POC Glucose (mg/dL) 167 H (75-99) mg/dL Microbiology - Last 24 Hours (Table) 02/01/19 12:13 Gram Stain - Final Catheter Site Wound Culture - Final Assessment and Plan Plan: Assessment: 1. Acute kidney injury mostly prerenal secondary to cardiorenal syndrome. Creatinine 1.77 today. Baseline creatinine near 1. UA is quite benign. Ultrasound from last month revealed no evidence of hydronephrosis. 2. Dyspnea secondary to volume overload. Improving. 3. Insulin-dependent diabetes mellitus. 4. Anemia. Severe iron deficiency noted. Status post 3 doses of IV iron. 5. Benign hypertension. Controlled. 6. 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 7. Hypomagnesemia secondary to diuresis. Stable. 8. Diastolic CHF. 9. Hypokalemia secondary to diuresis. Plan: Maintain Lasix drip at 15 mL an hour. Continue metolazone 5 mg daily. Low-salt diet and 1.5 L fluid restriction. Daily weights. Avoid nephrotoxins. Replace potassium. 100 mEq today. Replace magnesium. 1 g IV today. Repeat electrolytes in the morning.
[2019-02-04] MEDS ORDERED: MAGNESIUM SULFATE-D5W PMX 1 GM in DEXTROSE/WATER 1 100ML.BAG IVPB ONE (11:00)
[2019-02-04 11:39] LABS: Glucose,Whole Blood 253 mg/dL (75-99)
[2019-02-04] MEDS ORDERED: POTASSIUM CHLORIDE ER 20 MEQ TAB.ER PO ONE (14:00)
[2019-02-04 14:45] VITALS: BMI 38.5
--- NOTE | 2019-02-04 15:51 | P.PN ---
Subjective Progress Note Date: 02/04/19 Is a 58-year-old gentleman who presented to the hospital with worsening peripheral edema and shortness of breath. He was seen and examined today lying flat in bed, breathing is much improved, he continues to have a significant amount of peripheral edema and is quite sleepy overall. His parents are at bedside. He continues to have significant edema in his scrotal area however it is improving from admission overall. He continues to put out excellent urine output, his weight is overall down 2 kg today. Blood cell count 12.3, hemoglobin 8.9, platelet count 449. Sodium 135, potassium 3.1, BUN 59 and creatinine and 0.9. Mag level I.8. 02/03/2019 Patient was seen and examined this morning, his weight is down 10 pounds today, his creatinine is 1.8, continues overall to diurese well. Sodium 136, potassium 3.1, BUN 58 and creatinine 1.8. White blood cell count 13.2, hemoglobin 9.3 and a platelet count of 424. 02/04/2019 Patient seen and examined today, continues to have significant weight loss. Hemodynamically stable. Continues to be on the IV Lasix drip. Objective - Vital Signs Vital signs: Vital Signs Temp 98.1 F 02/04/19 08:00 Pulse 90 02/04/19 08:00 Resp 18 02/04/19 08:00 BP 116/72 02/04/19 08:00 Pulse Ox 99 02/04/19 08:00 Intake & Output 02/03/19 02/04/19 02/04/19 18:59 06:59 18:59 Intake Total 1130.75 590 75.5 Output Total 1575 2200 2550 Balance -444.25 -1610 -2474.5 Weight 122 kg 122 kg Intake: Intake, IV Titration 170.75 350 75.5 Amount Furosemide 100 mg In 170.75 200 75.5 Sodium Chloride 0.9% 90 ml @ 15 MG/HR 15 mls/hr IV .Q6H40M [facility] Rx#: [id number] Magnesium Sulfate-D5w Pmx 100 1 gm In Dextrose/Water 1 100ml.bag @ 100 mls/hr IVPB ONCE ONE Rx#: [id number] cefTRIAXone 2 gm In 50 Sodium Chloride 0.9% 50 ml @ 100 mls/hr IVPB Q24HR@2100 [facility] Rx#: [id number] Oral 960 240 Output: Urine 1575 2200 2550 Uretheral ([place]) 850 Other: Voiding Method Indwelling Catheter Indwelling Catheter Indwelling Catheter - Exam GENERAL EXAM: Pleasant 58-year-old gentleman. Sleepy , comfortable in no apparent distress. On 3 L nasal cannula. HEAD: Normocephalic. EYES: Normal reaction of pupils, equal size. NOSE: Clear with pink turbinates. THROAT: No erythema or exudates. NECK: No masses, no JVD. CHEST: No chest wall deformity. LUNGS: Fine crackles anteriorly heard CVS: S1 and S2 normal with no audible murmur, regular rhythm. ABDOMEN: No hepatosplenomegaly, normal bowel sounds, no guarding or rigidity., Scrotal edema SPINE: No scoliosis or deformity SKIN: No rashes CENTRAL NERVOUS SYSTEM: No focal deficits, tone is normal in all 4 extremities. EXTREMITIES: There is 2+ peripheral edema. Patient has a dressing to the left great toe which had been amputated, blackened area to the right great toe. - Labs CBC & Chem 7: 02/04/19 06:35 02/04/19 06:35 Labs: Abnormal Lab Results - Last 24 Hours (Table) 02/03/19 02/03/19 02/04/19 Range/Units 17:06 20:54 06:10 WBC (3.8-10.6) k/uL RBC (4.30-5.90) m/uL Hgb (13.0-17.5) gm/dL Hct (39.0-53.0) % MCHC (31.0-37.0) g/dL RDW (11.5-15.5) % Neutrophils # (1.3-7.7) k/uL Sodium (137-145) mmol/L Potassium (3.5-5.1) mmol/L Chloride (98-107) mmol/L Carbon Dioxide (22-30) mmol/L BUN (9-20) mg/dL Creatinine (0.66-1.25) mg/dL Glucose (74-99) mg/dL POC Glucose (mg/dL) 217 H 359 H 167 H (75-99) mg/dL 02/04/19 02/04/19 02/04/19 Range/Units 06:35 06:35 11:38 WBC 13.5 H (3.8-10.6) k/uL RBC 3.49 L (4.30-5.90) m/uL Hgb 9.2 L (13.0-17.5) gm/dL Hct 30.6 L (39.0-53.0) % MCHC 30.1 L (31.0-37.0) g/dL RDW 16.3 H (11.5-15.5) % Neutrophils # 11.1 H (1.3-7.7) k/uL Sodium 135 L (137-145) mmol/L Potassium 3.3 L (3.5-5.1) mmol/L Chloride 88 L (98-107) mmol/L Carbon Dioxide 40 H (22-30) mmol/L BUN 62 H (9-20) mg/dL Creatinine 1.77 H (0.66-1.25) mg/dL Glucose 153 H (74-99) mg/dL POC Glucose (mg/dL) 253 H (75-99) mg/dL Microbiology - Last 24 Hours (Table) 02/01/19 12:13 Gram Stain - Final Catheter Site Wound Culture - Final Assessment and Plan Plan: Assessment and plan #1 diastolic congestive heart failure acute on chronic #2 Acute on chronic renal failure #3 acute on chronic renal failure #4 hypertension #5 hyperlipidemia #6 morbid obesity #7 diabetes #8 left toe gangrene status post amputation in December of this year #9 anemia Plan From cardiology's perspective, we'll recommend to continue current IV Lasix drip dose, check lytes BUN and creatinine in the morning. DNP note has been reviewed, I agree with a documented findings and plan of care. Patient was seen and examined.
[2019-02-04 16:38] LABS: Glucose,Whole Blood 216 mg/dL (75-99)
--- NOTE | 2019-02-04 17:53 | PN ---
PROGRESS NOTE DATE OF SERVICE: 02/04/2019 This 58-year-old gentleman who was admitted CHF, acute exacerbation, with acute renal failure with acute tubular necrosis is being closely monitored at this time. The patient also has significant edema. Patient is on Lasix drip at this time. Patient also had mild hypokalemia. Nephrology and Cardiology are following the patient closely. The patient also has significant scrotal edema and some cellulitis. The cultures are also growing Enterobacter hormaechei. Infectious Disease is following the patient closely. On exam, alert and oriented x3. Pulse 90, blood pressure 116/72, respiration 18, temperature 98.1, pulse ox 99% on room air. HEENT: Conjunctivae normal. NECK: No jugular venous distention. CARDIOVASCULAR SYSTEM: S1, S2 muffled. RESPIRATORY SYSTEM: Breath sounds diminished at the bases. A few scattered rhonchi and crackles. ABDOMEN: Soft, obese, non-tender. LEGS: Minimal bilateral leg edema. Significant scrotal edema, cellulitis, infection present. NERVOUS SYSTEM: No focal deficit. LABS: WBC 13.5, hemoglobin 9.2, sodium 135, potassium 3.4. Creatinine is 1.77. ASSESSMENT: 1. Congestive heart failure, acute exacerbation, with acute on chronic diastolic dysfunction, ejection fraction 50% to 55%, on Lasix drip. 2. Acute renal failure with acute tubular necrosis, possible prerenal factors. 3. Cardiorenal syndrome. 4. Scrotal edema, significant. 5. Bilateral foot infection and ulcerative cellulitis. 6. Obesity with body mass index of 43.3. 7. Enterobacter hormaechei grown from the wound culture. 8. Increased white count. 9. Anemia, normocytic. 10.Possible urinary tract infection. 11.Hypokalemia. 12.Elevated troponin, possibly secondary to kidney disease. 13.Hypertension. 14.Diabetes mellitus, type 2. 15.Hyperkalemia. 16.Gait dysfunction. 17.FULL CODE. RECOMMENDATIONS AND DISCUSSION: I recommend to continue current medications, continue with the monitoring, symptomatic treatment. I recommend continuing with Lasix. Continue potassium monitor creatinine closely. Follow the repeat cultures. Otherwise, prognosis guarded because of multiple complex medical issues. Further recommendations to follow. MMODL / IJN: [id number] / [facility]
[2019-02-04 20:57] LABS: Glucose,Whole Blood 240 mg/dL (75-99)
[2019-02-04] MEDS: ATORVASTATIN 80 MG TAB PO SCH (21:17)
[2019-02-04] MEDS: lamoTRIgine 100 MG TAB PO SCH (21:17)
[2019-02-05] MEDS: FUROSEMIDE 100 MG in SODIUM CHLORIDE 0.9% 90 ML IV SCH (05:30)
[2019-02-05 06:14] LABS: Glucose,Whole Blood 152 mg/dL (75-99)
[2019-02-05 06:19] LABS: Anisocytosis Slight; Basophils # (A) 0.1 k/uL (0-0.2); Basophils % (A) 0 %; Eosinophils # (A) 0.3 k/uL (0-0.7); Eosinophils % (A) 2 %; HGB 9.3 gm/dL (13.0-17.5); Hypochromasia Marked; Lymphocytes # (A) 1.2 k/uL (1.0-4.8); Lymphocytes % (A) 9 %; MCH 25.8 pg (25.0-35.0); Mean Platelet Volume 6.6; Monocytes # (A) 0.9 k/uL (0-1.0); Monocytes % (A) 7 %; Neutrophils # (A) 10.3 k/uL (1.3-7.7); Neutrophils % (A) 80 %; Platelet Count 453 k/uL (150-450); Poikilocytosis Slight; RBC 3.61 m/uL (4.30-5.90); RDW 16.6 % (11.5-15.5); WBC 12.9 k/uL (3.8-10.6)
[2019-02-05 06:30] LABS: Calcium 8.9 mg/dL (8.4-10.2); Magnesium 1.8 mg/dL (1.6-2.3); Potassium 3.5 mmol/L (3.5-5.1)
[2019-02-05] MEDS: INSULIN ASPART (NovoLOG) 100 UNIT/ML VIAL SQ SCH ×4 (06:39→21:04)
[2019-02-05] MEDS ORDERED: POTASSIUM CHLORIDE ER 20 MEQ TAB.ER PO STA ×2 (07:55→09:45)
[2019-02-05] MEDS ORDERED: MAGNESIUM SULFATE-D5W PMX 1 GM in DEXTROSE/WATER 1 100ML.BAG IVPB ONE (08:48)
--- NOTE | 2019-02-05 08:50 | P.PN ---
Subjective Patient is seen in follow-up for acute kidney injury. Renal function is stable. Creatinine 1.8 today. Edema has improved significantly since admission. He is maintained on Lasix drip at 15 mL an hour. Urine output documented at 6.8 L in the last 24 hours. Weight is trending down. Denies chest pain or shortness of breath. No vomiting or diarrhea. He is able to ambulate on his own now. Vital signs are stable. General: The patient appeared well nourished and normally developed. HEENT: Head exam is unremarkable. Neck is without jugular venous distension. LUNGS: Breath sounds decreased. HEART: Rate and Rhythm are regular. First and second heart sounds normal. No murmurs, rubs or gallops. ABDOMEN: Abdominal exam reveals normal bowel sounds. Non-tender and non- distended. EXTREMITITES: 1+ edema. Objective - Vital Signs Vital signs: Vital Signs Temp 98.0 F 02/05/19 04:43 Pulse 80 02/05/19 04:43 Resp 20 02/05/19 04:43 BP 105/71 02/05/19 04:43 Pulse Ox 96 02/05/19 04:43 Intake & Output 02/04/19 02/05/19 02/05/19 18:59 06:59 18:59 Intake Total 150.5 200 236 Output Total 4350 2500 900 Balance -4199.5 -2300 -664 Weight 122 kg 119.5 kg Intake: Intake, IV Titration 75.5 200 Amount Furosemide 100 mg In 75.5 200 Sodium Chloride 0.9% 90 ml @ 15 MG/HR 15 mls/hr IV .Q6H40M [facility] Rx#: [id number] Oral 75 236 Output: Urine 4350 2500 900 Uretheral ([place]) 1650 Other: Voiding Method Indwelling Catheter Indwelling Catheter - Labs CBC & Chem 7: 02/05/19 05:58 02/05/19 05:58 Labs: Abnormal Lab Results - Last 24 Hours (Table) 02/04/19 02/04/19 02/04/19 Range/Units 11:38 16:37 17:31 WBC (3.8-10.6) k/uL RBC (4.30-5.90) m/uL Hgb (13.0-17.5) gm/dL Hct (39.0-53.0) % MCHC (31.0-37.0) g/dL RDW (11.5-15.5) % Plt Count (150-450) k/uL Neutrophils # (1.3-7.7) k/uL Sodium (137-145) mmol/L Potassium 3.4 L (3.5-5.1) mmol/L Chloride (98-107) mmol/L Carbon Dioxide (22-30) mmol/L BUN (9-20) mg/dL Creatinine (0.66-1.25) mg/dL Glucose (74-99) mg/dL POC Glucose (mg/dL) 253 H 216 H (75-99) mg/dL 02/04/19 02/05/19 02/05/19 Range/Units 20:53 05:58 05:58 WBC 12.9 H (3.8-10.6) k/uL RBC 3.61 L (4.30-5.90) m/uL Hgb 9.3 L (13.0-17.5) gm/dL Hct 31.0 L (39.0-53.0) % MCHC 30.0 L (31.0-37.0) g/dL RDW 16.6 H (11.5-15.5) % Plt Count 453 H (150-450) k/uL Neutrophils # 10.3 H (1.3-7.7) k/uL Sodium 133 L (137-145) mmol/L Potassium (3.5-5.1) mmol/L Chloride 84 L (98-107) mmol/L Carbon Dioxide 41 H* (22-30) mmol/L BUN 63 H (9-20) mg/dL Creatinine 1.80 H (0.66-1.25) mg/dL Glucose 144 H (74-99) mg/dL POC Glucose (mg/dL) 240 H (75-99) mg/dL 02/05/19 Range/Units 06:12 WBC (3.8-10.6) k/uL RBC (4.30-5.90) m/uL Hgb (13.0-17.5) gm/dL Hct (39.0-53.0) % MCHC (31.0-37.0) g/dL RDW (11.5-15.5) % Plt Count (150-450) k/uL Neutrophils # (1.3-7.7) k/uL Sodium (137-145) mmol/L Potassium (3.5-5.1) mmol/L Chloride (98-107) mmol/L Carbon Dioxide (22-30) mmol/L BUN (9-20) mg/dL Creatinine (0.66-1.25) mg/dL Glucose (74-99) mg/dL POC Glucose (mg/dL) 152 H (75-99) mg/dL Microbiology - Last 24 Hours (Table) 02/01/19 12:13 Catheter Tip Culture - Preliminary Catheter Tip 02/01/19 12:13 Gram Stain - Final Catheter Site Wound Culture - Final Assessment and Plan Plan: Assessment: 1. Acute kidney injury mostly prerenal secondary to cardiorenal syndrome. Creatinine 1.8 today. Baseline creatinine near 1. UA is quite benign. Ultrasound from last month revealed no evidence of hydronephrosis. 2. Dyspnea secondary to volume overload. Improving. 3. Insulin-dependent diabetes mellitus. 4. Anemia. Severe iron deficiency noted. Status post 3 doses of IV iron. 5. Benign hypertension. Controlled. 6. 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 7. Hypomagnesemia secondary to diuresis. Stable. 8. Diastolic CHF. 9. Hypokalemia secondary to diuresis. 10. Metabolic alkalosis secondary to diuresis. Plan: Discontinue Lasix drip. Start Lasix 60 mg IV twice daily. I will also give him 2 doses of IV Diamox today. Continue metolazone 5 mg daily. Low-salt diet and 1.5 L fluid restriction. Daily weights. Avoid nephrotoxins. Replace potassium. 80 mEq today. Replace magnesium. 1 g IV today. Repeat electrolytes in the morning.
[2019-02-05] MEDS: INSULIN DETEMIR (LEVEMIR) 100 UNIT/ML SYR SQ SCH (10:02)
[2019-02-05] MEDS: ALPRAZolam 1 MG TAB PO SCH (10:02)
[2019-02-05] MEDS: SERTRALINE 50 MG TAB PO SCH (10:02)
[2019-02-05] MEDS: hydrALAZINE HCL 50 MG TAB PO SCH ×2 (10:02→20:17)
[2019-02-05] MEDS: METOLAZONE 5 MG TAB PO SCH (10:02)
[2019-02-05] MEDS: METOPROLOL TARTRATE 25 MG TAB PO SCH ×2 (10:02→20:17)
[2019-02-05] MEDS: ASPIRIN 81 MG PO SCH (10:02)
[2019-02-05] MEDS: FUROSEMIDE 10 MG/ML 10 ML VIAL IV SCH ×2 (10:03→23:31)
[2019-02-05] MEDS: HEPARIN SODIUM,PORCINE 5,000 UNIT/ML 1 ML VIAL SQ SCH ×2 (10:14→20:17)
--- NOTE | 2019-02-05 11:32 | P.PN ---
Subjective 58-year-old gentleman admitted for seizure exacerbation and acute renal failure. He was started on Lasix drip initially. Cardiology and nephrology are following the patient. His Lasix drip was discontinued and was started on Lasix 60 mg twice a day IV push. Infectious disease also consulted for cellulitis in the scrotal area. On 02/05/2019 Patient says any shortness of breath is better. No cough, No chest pain racing heart He's trying to get up and walk Objective - Vital Signs Vital signs: Vital Signs Temp 98.7 F 02/05/19 08:00 Pulse 83 02/05/19 08:00 Resp 18 02/05/19 08:00 BP 117/66 02/05/19 08:00 Pulse Ox 96 02/05/19 08:00 Intake & Output 02/04/19 02/05/19 02/05/19 18:59 06:59 18:59 Intake Total 150.5 200 236 Output Total 4350 2500 900 Balance -4199.5 -2300 -664 Weight 122 kg 119.5 kg Intake: Intake, IV Titration 75.5 200 Amount Furosemide 100 mg In 75.5 200 Sodium Chloride 0.9% 90 ml @ 15 MG/HR 15 mls/hr IV .Q6H40M [facility] Rx#: [id number] Oral 75 236 Output: Urine 4350 2500 900 Uretheral ([place]) 1650 Other: Voiding Method Indwelling Catheter Indwelling Catheter Indwelling Catheter - Exam On exam, alert and oriented x3. HEENT: Conjunctivae normal. eyes normal. NECK: No JVD. No thyroid enlargement. No LNs CARDIOVASCULAR: S1-S2 positive RESPIRATION: Breath sounds diminished in the bases. No rhonchi or crackles. No bronchial breathing. ABDOMEN: Soft, nontender . No guarding. no masses palpable. No ascites, No hepatosplenomegaly.Bowel sounds heard. swelling of the scrotum appreciated. LEGS: He is having +2 pitting edema. NERVOUS SYSTEM: Cranial N 2-12 grossly normal. Moves all 4 limbs. No focal deficits. No sensory deficit. No signs of cerebellar dysfucntion. Skin: no ulcer no rash . He has laceration to his left wrist - Labs CBC & Chem 7: 02/05/19 05:58 02/05/19 05:58 Labs: Abnormal Lab Results - Last 24 Hours (Table) 02/04/19 02/04/19 02/04/19 Range/Units 11:38 16:37 17:31 WBC (3.8-10.6) k/uL RBC (4.30-5.90) m/uL Hgb (13.0-17.5) gm/dL Hct (39.0-53.0) % MCHC (31.0-37.0) g/dL RDW (11.5-15.5) % Plt Count (150-450) k/uL Neutrophils # (1.3-7.7) k/uL Sodium (137-145) mmol/L Potassium 3.4 L (3.5-5.1) mmol/L Chloride (98-107) mmol/L Carbon Dioxide (22-30) mmol/L BUN (9-20) mg/dL Creatinine (0.66-1.25) mg/dL Glucose (74-99) mg/dL POC Glucose (mg/dL) 253 H 216 H (75-99) mg/dL 02/04/19 02/05/19 02/05/19 Range/Units 20:53 05:58 05:58 WBC 12.9 H (3.8-10.6) k/uL RBC 3.61 L (4.30-5.90) m/uL Hgb 9.3 L (13.0-17.5) gm/dL Hct 31.0 L (39.0-53.0) % MCHC 30.0 L (31.0-37.0) g/dL RDW 16.6 H (11.5-15.5) % Plt Count 453 H (150-450) k/uL Neutrophils # 10.3 H (1.3-7.7) k/uL Sodium 133 L (137-145) mmol/L Potassium (3.5-5.1) mmol/L Chloride 84 L (98-107) mmol/L Carbon Dioxide 41 H* (22-30) mmol/L BUN 63 H (9-20) mg/dL Creatinine 1.80 H (0.66-1.25) mg/dL Glucose 144 H (74-99) mg/dL POC Glucose (mg/dL) 240 H (75-99) mg/dL 02/05/19 Range/Units 06:12 WBC (3.8-10.6) k/uL RBC (4.30-5.90) m/uL Hgb (13.0-17.5) gm/dL Hct (39.0-53.0) % MCHC (31.0-37.0) g/dL RDW (11.5-15.5) % Plt Count (150-450) k/uL Neutrophils # (1.3-7.7) k/uL Sodium (137-145) mmol/L Potassium (3.5-5.1) mmol/L Chloride (98-107) mmol/L Carbon Dioxide (22-30) mmol/L BUN (9-20) mg/dL Creatinine (0.66-1.25) mg/dL Glucose (74-99) mg/dL POC Glucose (mg/dL) 152 H (75-99) mg/dL Microbiology - Last 24 Hours (Table) 02/01/19 12:13 Catheter Tip Culture - Preliminary Catheter Tip 02/01/19 12:13 Gram Stain - Final Catheter Site Wound Culture - Final Assessment and Plan Assessment: - CHF exacerbation with diastolic dysfunction - AK I due to prerenal factors - Cardiorenal syndrome - Bilateral foot infection cellulitis - Scrotal edema - Enterobacter hormaechi positive from wound cultures - Anemia - Hypertension - Diabetes mellitus Plan - Continue Lasix as per nephrology recommendations - Cardiology following the patient procedures evaluation - Continue antibiotics as per ID recommendations - Monitor lites and kidney functions - PTOT - We'll continue to monitor the patient
[2019-02-05 11:48] LABS: Glucose,Whole Blood 337 mg/dL (75-99)
--- NOTE | 2019-02-05 14:29 | P.PN ---
Subjective Progress Note Date: 02/05/19 Is a 58-year-old gentleman who presented to the hospital with worsening peripheral edema and shortness of breath. He was seen and examined today lying flat in bed, breathing is much improved, he continues to have a significant amount of peripheral edema and is quite sleepy overall. His parents are at bedside. He continues to have significant edema in his scrotal area however it is improving from admission overall. He continues to put out excellent urine output, his weight is overall down 2 kg today. Blood cell count 12.3, hemoglobin 8.9, platelet count 449. Sodium 135, potassium 3.1, BUN 59 and creatinine and 0.9. Mag level I.8. 02/03/2019 Patient was seen and examined this morning, his weight is down 10 pounds today, his creatinine is 1.8, continues overall to diurese well. Sodium 136, potassium 3.1, BUN 58 and creatinine 1.8. White blood cell count 13.2, hemoglobin 9.3 and a platelet count of 424. 02/04/2019 Patient seen and examined today, continues to have significant weight loss. Hemodynamically stable. Continues to be on the IV Lasix drip. 02/05/2019 Patient was seen and examined this morning, improving significantly overall. He is sitting up in the chair today, his weight is down 3 kg his creatinine is 1.8. IV Lasix drip has been discontinued and the patient is currently on IV Lasix 60 mg twice a day. Blood pressure 116/60 with a heart rate of 70, 92% on room air. Objective - Vital Signs Vital signs: Vital Signs Temp 98 F 02/05/19 12:00 Pulse 75 02/05/19 12:00 Resp 20 02/05/19 12:00 BP 92/57 02/05/19 12:00 Pulse Ox 92 L 02/05/19 12:00 Intake & Output 02/04/19 02/05/19 02/05/19 18:59 06:59 18:59 Intake Total 150.5 200 236 Output Total 4350 2500 900 Balance -4199.5 -2300 -664 Weight 122 kg 119.5 kg Intake: Intake, IV Titration 75.5 200 Amount Furosemide 100 mg In 75.5 200 Sodium Chloride 0.9% 90 ml @ 15 MG/HR 15 mls/hr IV .Q6H40M [facility] Rx#: [id number] Oral 75 236 Output: Urine 4350 2500 900 Uretheral ([place]) 1650 Other: Voiding Method Indwelling Catheter Indwelling Catheter Indwelling Catheter - Exam GENERAL EXAM: Pleasant 58-year-old gentleman. Sleepy , comfortable in no apparent distress. On 3 L nasal cannula. HEAD: Normocephalic. EYES: Normal reaction of pupils, equal size. NOSE: Clear with pink turbinates. THROAT: No erythema or exudates. NECK: No masses, no JVD. CHEST: No chest wall deformity. LUNGS: Reveal diminished air entry to bilateral bases. CVS: S1 and S2 normal with no audible murmur, regular rhythm. ABDOMEN: Obese. No hepatosplenomegaly, normal bowel sounds, no guarding or rigidity., Scrotal edema improving. SPINE: No scoliosis or deformity SKIN: No rashes CENTRAL NERVOUS SYSTEM: No focal deficits, tone is normal in all 4 extremities. EXTREMITIES: There is 1+ peripheral edema. Patient has a dressing to the left great toe which had been amputated, blackened area to the right great toe. - Labs CBC & Chem 7: 02/05/19 05:58 02/05/19 05:58 Labs: Abnormal Lab Results - Last 24 Hours (Table) 02/04/19 02/04/19 02/04/19 Range/Units 16:37 17:31 20:53 WBC (3.8-10.6) k/uL RBC (4.30-5.90) m/uL Hgb (13.0-17.5) gm/dL Hct (39.0-53.0) % MCHC (31.0-37.0) g/dL RDW (11.5-15.5) % Plt Count (150-450) k/uL Neutrophils # (1.3-7.7) k/uL Sodium (137-145) mmol/L Potassium 3.4 L (3.5-5.1) mmol/L Chloride (98-107) mmol/L Carbon Dioxide (22-30) mmol/L BUN (9-20) mg/dL Creatinine (0.66-1.25) mg/dL Glucose (74-99) mg/dL POC Glucose (mg/dL) 216 H 240 H (75-99) mg/dL 02/05/19 02/05/19 02/05/19 Range/Units 05:58 05:58 06:12 WBC 12.9 H (3.8-10.6) k/uL RBC 3.61 L (4.30-5.90) m/uL Hgb 9.3 L (13.0-17.5) gm/dL Hct 31.0 L (39.0-53.0) % MCHC 30.0 L (31.0-37.0) g/dL RDW 16.6 H (11.5-15.5) % Plt Count 453 H (150-450) k/uL Neutrophils # 10.3 H (1.3-7.7) k/uL Sodium 133 L (137-145) mmol/L Potassium (3.5-5.1) mmol/L Chloride 84 L (98-107) mmol/L Carbon Dioxide 41 H* (22-30) mmol/L BUN 63 H (9-20) mg/dL Creatinine 1.80 H (0.66-1.25) mg/dL Glucose 144 H (74-99) mg/dL POC Glucose (mg/dL) 152 H (75-99) mg/dL 02/05/19 Range/Units 11:37 WBC (3.8-10.6) k/uL RBC (4.30-5.90) m/uL Hgb (13.0-17.5) gm/dL Hct (39.0-53.0) % MCHC (31.0-37.0) g/dL RDW (11.5-15.5) % Plt Count (150-450) k/uL Neutrophils # (1.3-7.7) k/uL Sodium (137-145) mmol/L Potassium (3.5-5.1) mmol/L Chloride (98-107) mmol/L Carbon Dioxide (22-30) mmol/L BUN (9-20) mg/dL Creatinine (0.66-1.25) mg/dL Glucose (74-99) mg/dL POC Glucose (mg/dL) 337 H (75-99) mg/dL Microbiology - Last 24 Hours (Table) 02/01/19 12:13 Catheter Tip Culture - Preliminary Catheter Tip Assessment and Plan Plan: Assessment and plan #1 diastolic congestive heart failure acute on chronic #2 Acute on chronic renal failure #3 acute on chronic renal failure #4 hypertension #5 hyperlipidemia #6 morbid obesity #7 diabetes #8 left toe gangrene status post amputation in December of this year #9 anemia Plan From cardiology's perspective, we'll continue with current dose of IV push Lasix. Continue to monitor intake and output along with daily weights and daily lytes BUN and creatinine. DNP note has been reviewed, I agree with a documented findings and plan of care. Patient was seen and examined.
[2019-02-05] MEDS: ACETAMINOPHEN TAB 325 MG TAB PO PRN (15:36)
[2019-02-05 16:35] LABS: Glucose,Whole Blood 178 mg/dL (75-99)
--- NOTE | 2019-02-05 17:36 | XR ---
EXAMINATION TYPE: XR chest 1V portable DATE OF EXAM: 02/05/2019 COMPARISON: 01/29/2019 HISTORY: Short of breath TECHNIQUE: Single frontal view of the chest is obtained. FINDINGS: There is patchy airspace consolidation right lower lobe. There is no heart failure. There is slight blunting right costophrenic angle. There are are chest leads. IMPRESSION: There is right pleural effusion and right lower lobe pneumonia slightly worse than last exam. No heart failure.
[2019-02-05 18:26] LABS: Calcium 8.7 mg/dL (8.4-10.2); Potassium 3.5 mmol/L (3.5-5.1)
--- NOTE | 2019-02-05 18:41 | CT ---
EXAMINATION TYPE: CT angio head DATE OF EXAM: 02/05/2019 6:16 PM COMPARISON: None HISTORY: Change in LOC, SOB with activity. CT DLP: 2230.6 mGycm Automated exposure control for dose reduction was used. TECHNIQUE: Performed without and with IV Contrast, patient injected with 80ml mL of Isovue 370. . Multiple axial sections were also obtained of the brain without contrast. There are 3-D post proces sed images. FINDINGS: There is normal contrast opacification of the basilar artery. Basilar artery fills essentially from t he right side. Distal left vertebral artery is patent and fills the left posterior inferior cerebella r artery. There is arterial flow in the anterior middle and posterior cerebral arteries. I see no evidence of a neurysm or neovascularity. There is no evidence of hemodynamic stenosis. There is no mass effect. There is mild cerebral atrophy. There is no evidence of intracranial hemorrhage. There is normal contrast opacification of the venous sinuses. There is bilateral patency of the poste rior communicating arteries. There is arterial flow in both intracranial internal carotid arteries. IMPRESSION: NEGATIVE CT ANGIOGRAM OF THE BRAIN.
[2019-02-05 20:09] LABS: Appearance,Urine Cloudy (Clear); Bilirubin,Urine Negative (Negative); Blood,Urine Small (Negative); Budding Yeast,Urine Few /hpf; Color,Urine Yellow; Glucose,Urine (UA) Negative (Negative); Hyaline Casts,Urine 7 /lpf (0-2); Ketones,Urine Negative (Negative); Leukocyte Esterase,Urine Large (Negative); Mucus,Urine Rare /hpf; Nitrite,Urine Negative (Negative); Protein,Urine 1+ (Negative); RBC,Urine 30 /hpf (0-5); Specific Gravity,Urine 1.023 (1.001-1.035); Squamous Epithelial Cell,Urine 1 /hpf (0-4); Urobilinogen,Urine <2.0 mg/dL (<2.0); WBC,Urine 28 /hpf (0-5)
[2019-02-05] MEDS: ATORVASTATIN 80 MG TAB PO SCH (20:17)
[2019-02-05] MEDS: lamoTRIgine 100 MG TAB PO SCH (20:18)
[2019-02-05 20:50] LABS: Glucose,Whole Blood 202 mg/dL (75-99)
[2019-02-06 05:54] LABS: Glucose,Whole Blood 155 mg/dL (75-99)
[2019-02-06 06:27] LABS: Anisocytosis Slight; Basophils % (A) 0 %; Eosinophils # (A) 0.3 k/uL (0-0.7); Eosinophils % (A) 3 %; HCT 31.7 % (39.0-53.0); HGB 9.2 gm/dL (13.0-17.5); Hypochromasia Marked; Lymphocytes # (A) 1.1 k/uL (1.0-4.8); Lymphocytes % (A) 9 %; MCH 25.8 pg (25.0-35.0); MCHC 29.2 g/dL (31.0-37.0); MCV 88.4 fL (80.0-100.0); Mean Platelet Volume 7.3; Monocytes # (A) 0.7 k/uL (0-1.0); Monocytes % (A) 6 %; Neutrophils # (A) 9.1 k/uL (1.3-7.7); Neutrophils % (A) 81 %; Platelet Count 419 k/uL (150-450); Poikilocytosis Moderate; RBC 3.58 m/uL (4.30-5.90); RDW 16.2 % (11.5-15.5); WBC 11.3 k/uL (3.8-10.6)
[2019-02-06 06:34] LABS: Calcium 8.9 mg/dL (8.4-10.2); Potassium 3.2 mmol/L (3.5-5.1)
[2019-02-06] MEDS: INSULIN ASPART (NovoLOG) 100 UNIT/ML VIAL SQ SCH ×4 (06:36→21:07)
[2019-02-06] MEDS: HEPARIN SODIUM,PORCINE 5,000 UNIT/ML 1 ML VIAL SQ SCH ×2 (09:05→21:06)
[2019-02-06] MEDS: FUROSEMIDE 10 MG/ML 10 ML VIAL IV SCH ×2 (09:05→21:06)
[2019-02-06] MEDS: ASPIRIN 81 MG PO SCH (09:06)
[2019-02-06] MEDS: POTASSIUM CHLORIDE ER 20 MEQ TAB.ER PO SCH ×4 (09:06→17:10)
[2019-02-06] MEDS: METOPROLOL TARTRATE 25 MG TAB PO SCH ×2 (09:06→21:06)
[2019-02-06] MEDS: METOLAZONE 5 MG TAB PO SCH (09:06)
[2019-02-06] MEDS: SERTRALINE 50 MG TAB PO SCH (09:06)
[2019-02-06] MEDS: hydrALAZINE HCL 50 MG TAB PO SCH ×2 (09:08→23:17)
[2019-02-06] MEDS: ACETAMINOPHEN TAB 325 MG TAB PO PRN (09:17)
[2019-02-06] MEDS: INSULIN DETEMIR (LEVEMIR) 100 UNIT/ML SYR SQ SCH (09:26)
[2019-02-06] MEDS: CALCIUM CARBONATE 500 MG CHEWABLE PO PRN (10:17)
--- NOTE | 2019-02-06 10:19 | P.PN ---
Subjective 58-year-old gentleman admitted for seizure exacerbation and acute renal failure. He was started on Lasix drip initially. Cardiology and nephrology are following the patient. His Lasix drip was discontinued and was started on Lasix 60 mg twice a day IV push. Infectious disease also consulted for cellulitis in the scrotal area. On 02/05/2019 Patient says any shortness of breath is better. No cough, No chest pain racing heart He's trying to get up and walk On 02/06/2019 Patient is complaining of nausea and burning in the epigastric area He is alert oriented 3 this morning. Apparently he was having some black. Yesterday CT of the head was done which was negative Objective - Vital Signs Vital signs: Vital Signs Temp 98.7 F 02/06/19 08:00 Pulse 77 02/06/19 08:00 Resp 16 02/06/19 08:00 BP 100/64 02/06/19 08:00 Pulse Ox 94 L 02/06/19 08:00 Intake & Output 02/05/19 02/06/19 02/06/19 18:59 06:59 18:59 Intake Total 236 80 200 Output Total 2175 2150 900 Balance -1938 Weight 117 kg Intake: IV 80 Invasive Line 5 80 Oral 236 200 Output: Urine 2175 2150 900 Other: Voiding Method Indwelling Catheter Indwelling Catheter - Exam On exam, alert and oriented x3. HEENT: Conjunctivae normal. eyes normal. NECK: No JVD. No thyroid enlargement. No LNs CARDIOVASCULAR: S1-S2 positive RESPIRATION: Breath sounds diminished in the bases. No rhonchi or crackles. No bronchial breathing. ABDOMEN: Soft, tenderness in the epigastric area. No guarding. no masses palpable. No ascites, No hepatosplenomegaly.Bowel sounds heard. swelling of the scrotum appreciated. LEGS: He is having +2 pitting edema. NERVOUS SYSTEM: Cranial N 2-12 grossly normal. Moves all 4 limbs. No focal deficits. No sensory deficit. No signs of cerebellar dysfucntion. Skin: no ulcer no rash . He has laceration to his left wrist - Labs CBC & Chem 7: 02/06/19 05:42 02/06/19 05:42 Labs: Abnormal Lab Results - Last 24 Hours (Table) 02/05/19 02/05/19 02/05/19 Range/Units 11:37 16:30 17:32 WBC (3.8-10.6) k/uL RBC (4.30-5.90) m/uL Hgb (13.0-17.5) gm/dL Hct (39.0-53.0) % MCHC (31.0-37.0) g/dL RDW (11.5-15.5) % Neutrophils # (1.3-7.7) k/uL Sodium 134 L (137-145) mmol/L Potassium (3.5-5.1) mmol/L Chloride 86 L (98-107) mmol/L Carbon Dioxide 38 H (22-30) mmol/L BUN 60 H (9-20) mg/dL Creatinine 2.03 H (0.66-1.25) mg/dL Glucose 140 H (74-99) mg/dL POC Glucose (mg/dL) 337 H 178 H (75-99) mg/dL Urine Protein (Negative) Urine Blood (Negative) Ur Leukocyte Esterase (Negative) Urine RBC (0-5) /hpf Urine WBC (0-5) /hpf Hyaline Casts (0-2) /lpf Urine Mucus (None) /hpf Urine Yeast (Budding) (None) /hpf 02/05/19 02/05/19 02/06/19 Range/Units 19:50 20:47 05:42 WBC 11.3 H (3.8-10.6) k/uL RBC 3.58 L (4.30-5.90) m/uL Hgb 9.2 L (13.0-17.5) gm/dL Hct 31.7 L (39.0-53.0) % MCHC 29.2 L (31.0-37.0) g/dL RDW 16.2 H (11.5-15.5) % Neutrophils # 9.1 H (1.3-7.7) k/uL Sodium (137-145) mmol/L Potassium (3.5-5.1) mmol/L Chloride (98-107) mmol/L Carbon Dioxide (22-30) mmol/L BUN (9-20) mg/dL Creatinine (0.66-1.25) mg/dL Glucose (74-99) mg/dL POC Glucose (mg/dL) 202 H (75-99) mg/dL Urine Protein 1+ H (Negative) Urine Blood Small H (Negative) Ur Leukocyte Esterase Large H (Negative) Urine RBC 30 H (0-5) /hpf Urine WBC 28 H (0-5) /hpf Hyaline Casts 7 H (0-2) /lpf Urine Mucus Rare H (None) /hpf Urine Yeast (Budding) Few H (None) /hpf 02/06/19 02/06/19 Range/Units 05:42 05:52 WBC (3.8-10.6) k/uL RBC (4.30-5.90) m/uL Hgb (13.0-17.5) gm/dL Hct (39.0-53.0) % MCHC (31.0-37.0) g/dL RDW (11.5-15.5) % Neutrophils # (1.3-7.7) k/uL Sodium 136 L (137-145) mmol/L Potassium 3.2 L (3.5-5.1) mmol/L Chloride 87 L (98-107) mmol/L Carbon Dioxide 40 H (22-30) mmol/L BUN 60 H (9-20) mg/dL Creatinine 1.99 H (0.66-1.25) mg/dL Glucose 130 H (74-99) mg/dL POC Glucose (mg/dL) 155 H (75-99) mg/dL Urine Protein (Negative) Urine Blood (Negative) Ur Leukocyte Esterase (Negative) Urine RBC (0-5) /hpf Urine WBC (0-5) /hpf Hyaline Casts (0-2) /lpf Urine Mucus (None) /hpf Urine Yeast (Budding) (None) /hpf Microbiology - Last 24 Hours (Table) 02/01/19 12:13 Catheter Tip Culture - Preliminary Catheter Tip Assessment and Plan Assessment: - CHF exacerbation with diastolic dysfunction - AK I due to prerenal factors - Cardiorenal syndrome - Bilateral foot infection cellulitis - Scrotal edema - Enterobacter hormaechi positive from wound cultures - Anemia - Hypertension - Diabetes mellitus Plan 02/05/2019 - Continue Lasix as per nephrology recommendations - Cardiology following the patient procedures evaluation - Continue antibiotics as per ID recommendations - Monitor lites and kidney functions - PTOT - We'll continue to monitor the patient 02/06/2019 - We'll order for lipase level and CT abdomen and pelvis - We'll give him GI cocktail for his epigastric pain and tenderness - We'll continue Lasix as per nephrology recommendations - Infectious disease on board for cellulitis. Continue antibiotics as per ID recommendations - Continue rest of the medical care - We'll follow up on the patient Time with Patient: Greater than 30
--- NOTE | 2019-02-06 10:26 | P.PN ---
Subjective Progress Note Date: 02/06/19 Principal diagnosis: This is a 58-year-old male seen in consultation because of acute kidney injury and chronic kidney disease. He has cardiorenal syndrome is on Lasix which was c hanged from a trip to IV Lasix as of yesterday. He continues to feel well he says he walked on his own without any help and had a good breakfast. On room air. Denies any dizziness chest pain cough fever chills. His chest x-ray shows pneumonia on the right side with small amount of effusion, with blunting of the right costophrenic angle Creatinine is stable, 1.99 today and has been 1.87 on 01/29/2019 His baseline creatinine is wearing between 0.78-1.09 as of 01/08/2019 and 01/09/2019 He does complain of some heartburn and epigastric discomfort as well as right upper quadrant tenderness Objective - Vital Signs Vital signs: Vital Signs Temp 98.7 F 02/06/19 08:00 Pulse 77 02/06/19 08:00 Resp 16 02/06/19 08:00 BP 100/64 02/06/19 08:00 Pulse Ox 94 L 02/06/19 08:00 Intake & Output 02/05/19 02/06/19 02/06/19 18:59 06:59 18:59 Intake Total 236 80 200 Output Total 2175 2150 900 Balance -1938 - Weight 117 kg Intake: IV 80 Invasive Line 5 80 Oral 236 200 Output: Urine 2175 2150 900 Other: Voiding Method Indwelling Catheter Indwelling Catheter On exam she is morbidly obese, awake alert on room air and comfortable. HEENT exam no JVP neck is supple no facial asymmetry Lungs are significant for bilateral coarse crackles at bases fair air entry Heart sounds are unremarkable for any murmur rub gallop he seems to be normal sinus rhythm Abdomen is soft but obese and protuberant there is some right upper quadrant tenderness could not feel the liver but on percussion there may be some mild dullness suggestive hepatomegaly Extremity exam reveals mild edema Neurologically awake alert oriented but weak and had difficulty sitting up - Labs CBC & Chem 7: 02/06/19 05:42 02/06/19 05:42 Labs: Abnormal Lab Results - Last 24 Hours (Table) 02/05/19 02/05/19 02/05/19 Range/Units 11:37 16:30 17:32 WBC (3.8-10.6) k/uL RBC (4.30-5.90) m/uL Hgb (13.0-17.5) gm/dL Hct (39.0-53.0) % MCHC (31.0-37.0) g/dL RDW (11.5-15.5) % Neutrophils # (1.3-7.7) k/uL Sodium 134 L (137-145) mmol/L Potassium (3.5-5.1) mmol/L Chloride 86 L (98-107) mmol/L Carbon Dioxide 38 H (22-30) mmol/L BUN 60 H (9-20) mg/dL Creatinine 2.03 H (0.66-1.25) mg/dL Glucose 140 H (74-99) mg/dL POC Glucose (mg/dL) 337 H 178 H (75-99) mg/dL Urine Protein (Negative) Urine Blood (Negative) Ur Leukocyte Esterase (Negative) Urine RBC (0-5) /hpf Urine WBC (0-5) /hpf Hyaline Casts (0-2) /lpf Urine Mucus (None) /hpf Urine Yeast (Budding) (None) /hpf 02/05/19 02/05/19 02/06/19 Range/Units 19:50 20:47 05:42 WBC 11.3 H (3.8-10.6) k/uL RBC 3.58 L (4.30-5.90) m/uL Hgb 9.2 L (13.0-17.5) gm/dL Hct 31.7 L (39.0-53.0) % MCHC 29.2 L (31.0-37.0) g/dL RDW 16.2 H (11.5-15.5) % Neutrophils # 9.1 H (1.3-7.7) k/uL Sodium (137-145) mmol/L Potassium (3.5-5.1) mmol/L Chloride (98-107) mmol/L Carbon Dioxide (22-30) mmol/L BUN (9-20) mg/dL Creatinine (0.66-1.25) mg/dL Glucose (74-99) mg/dL POC Glucose (mg/dL) 202 H (75-99) mg/dL Urine Protein 1+ H (Negative) Urine Blood Small H (Negative) Ur Leukocyte Esterase Large H (Negative) Urine RBC 30 H (0-5) /hpf Urine WBC 28 H (0-5) /hpf Hyaline Casts 7 H (0-2) /lpf Urine Mucus Rare H (None) /hpf Urine Yeast (Budding) Few H (None) /hpf 02/06/19 02/06/19 Range/Units 05:42 05:52 WBC (3.8-10.6) k/uL RBC (4.30-5.90) m/uL Hgb (13.0-17.5) gm/dL Hct (39.0-53.0) % MCHC (31.0-37.0) g/dL RDW (11.5-15.5) % Neutrophils # (1.3-7.7) k/uL Sodium 136 L (137-145) mmol/L Potassium 3.2 L (3.5-5.1) mmol/L Chloride 87 L (98-107) mmol/L Carbon Dioxide 40 H (22-30) mmol/L BUN 60 H (9-20) mg/dL Creatinine 1.99 H (0.66-1.25) mg/dL Glucose 130 H (74-99) mg/dL POC Glucose (mg/dL) 155 H (75-99) mg/dL Urine Protein (Negative) Urine Blood (Negative) Ur Leukocyte Esterase (Negative) Urine RBC (0-5) /hpf Urine WBC (0-5) /hpf Hyaline Casts (0-2) /lpf Urine Mucus (None) /hpf Urine Yeast (Budding) (None) /hpf Microbiology - Last 24 Hours (Table) 02/01/19 12:13 Catheter Tip Culture - Preliminary Catheter Tip Assessment and Plan Assessment: Impression 1. Acute kidney injury secondary to cardiorenal syndrome creatinine is stable at 1.8-1.9 since admission. 2. 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 Urinalysis on 02/05/2019 yesterday showed 1+ protein and previously was trace. Possible diabetic nephropathy. 3. Congestive heart failure improved on Lasix. 4. Hypotension secondary to diastolic dysfunction. He is on metoprolol 25 twice a day and Lasix 60 IV every 12, metolazone 5 twice a day, hydralazine 50 twice a day. 5. Anemia with hemoglobin 9.2, stable Recommendation. 1.We will consider reducing his medication if his creatinine does not improve and blood pressures in the less than 110 range with consultation with cardiology 2. Maintain current diuretic regimen. 3. Check orthostatic changes. 4. Monitor labs. 5. Check iron saturation.
[2019-02-06] MEDS: IOPAMIDOL-300 CONTRAST 30 ML VIAL (ORAL USE) PO PRN ×2 (10:31→11:34)
--- NOTE | 2019-02-06 10:35 | P.PN ---
Subjective Progress Note Date: 02/06/19 Is a 58-year-old gentleman who presented to the hospital with worsening peripheral edema and shortness of breath. He was seen and examined today lying flat in bed, breathing is much improved, he continues to have a significant amount of peripheral edema and is quite sleepy overall. His parents are at bedside. He continues to have significant edema in his scrotal area however it is improving from admission overall. He continues to put out excellent urine output, his weight is overall down 2 kg today. Blood cell count 12.3, hemoglobin 8.9, platelet count 449. Sodium 135, potassium 3.1, BUN 59 and creatinine and 0.9. Mag level I.8. 02/03/2019 Patient was seen and examined this morning, his weight is down 10 pounds today, his creatinine is 1.8, continues overall to diurese well. Sodium 136, potassium 3.1, BUN 58 and creatinine 1.8. White blood cell count 13.2, hemoglobin 9.3 and a platelet count of 424. 02/04/2019 Patient seen and examined today, continues to have significant weight loss. Hemodynamically stable. Continues to be on the IV Lasix drip. 02/05/2019 Patient was seen and examined this morning, improving significantly overall. He is sitting up in the chair today, his weight is down 3 kg his creatinine is 1.8. IV Lasix drip has been discontinued and the patient is currently on IV Lasix 60 mg twice a day. Blood pressure 116/60 with a heart rate of 70, 92% on room air. 02/06/2019 Patient seen and examined this morning, overall doing well. Had an episode a CAT scan of the brain was performed which was negative. Blood pressure this morning 100/60 with a heart rate in the 70s, 94% on room air. White blood cell count 11.3, hemoglobin 9.2, 419. Sodium 136, potassium 3.2, BUN 60 and creatinine 1.9. Magnesium 2.0. Weight is down 2 kg. Patient continues to be on Lasix 60 mg IV twice a day. Objective - Vital Signs Vital signs: Vital Signs Temp 98.7 F 02/06/19 08:00 Pulse 77 02/06/19 08:00 Resp 16 02/06/19 08:00 BP 100/64 02/06/19 08:00 Pulse Ox 94 L 02/06/19 08:00 Intake & Output 02/05/19 02/06/19 02/06/19 18:59 06:59 18:59 Intake Total 236 80 200 Output Total 2175 2150 900 Balance -1938 Weight 117 kg Intake: IV 80 Invasive Line 5 80 Oral 236 200 Output: Urine 2174 2150 900 Other: Voiding Method Indwelling Catheter Indwelling Catheter - Exam GENERAL EXAM: Pleasant 58-year-old gentleman. Sleepy , comfortable in no apparent distress. On 3 L nasal cannula. HEAD: Normocephalic. EYES: Normal reaction of pupils, equal size. NOSE: Clear with pink turbinates. THROAT: No erythema or exudates. NECK: No masses, no JVD. CHEST: No chest wall deformity. LUNGS: Reveal improvement in air entry to bilateral bases. CVS: S1 and S2 normal with no audible murmur, regular rhythm. ABDOMEN: Obese. No hepatosplenomegaly, normal bowel sounds, no guarding or rigidity., Scrotal edema improving. SPINE: No scoliosis or deformity SKIN: No rashes CENTRAL NERVOUS SYSTEM: No focal deficits, tone is normal in all 4 extremities. EXTREMITIES: There is trace to 1+ peripheral edema. Patient has a dressing to the left great toe which had been amputated, blackened area to the right great toe. - Labs CBC & Chem 7: 02/06/19 05:42 02/06/19 05:42 Labs: Abnormal Lab Results - Last 24 Hours (Table) 02/05/19 02/05/19 02/05/19 Range/Units 11:37 16:30 17:32 WBC (3.8-10.6) k/uL RBC (4.30-5.90) m/uL Hgb (13.0-17.5) gm/dL Hct (39.0-53.0) % MCHC (31.0-37.0) g/dL RDW (11.5-15.5) % Neutrophils # (1.3-7.7) k/uL Sodium 134 L (137-145) mmol/L Potassium (3.5-5.1) mmol/L Chloride 86 L (98-107) mmol/L Carbon Dioxide 38 H (22-30) mmol/L BUN 60 H (9-20) mg/dL Creatinine 2.03 H (0.66-1.25) mg/dL Glucose 140 H (74-99) mg/dL POC Glucose (mg/dL) 337 H 178 H (75-99) mg/dL Urine Protein (Negative) Urine Blood (Negative) Ur Leukocyte Esterase (Negative) Urine RBC (0-5) /hpf Urine WBC (0-5) /hpf Hyaline Casts (0-2) /lpf Urine Mucus (None) /hpf Urine Yeast (Budding) (None) /hpf 02/05/19 02/05/19 02/06/19 Range/Units 19:50 20:47 05:42 WBC 11.3 H (3.8-10.6) k/uL RBC 3.58 L (4.30-5.90) m/uL Hgb 9.2 L (13.0-17.5) gm/dL Hct 31.7 L (39.0-53.0) % MCHC 29.2 L (31.0-37.0) g/dL RDW 16.2 H (11.5-15.5) % Neutrophils # 9.1 H (1.3-7.7) k/uL Sodium (137-145) mmol/L Potassium (3.5-5.1) mmol/L Chloride (98-107) mmol/L Carbon Dioxide (22-30) mmol/L BUN (9-20) mg/dL Creatinine (0.66-1.25) mg/dL Glucose (74-99) mg/dL POC Glucose (mg/dL) 202 H (75-99) mg/dL Urine Protein 1+ H (Negative) Urine Blood Small H (Negative) Ur Leukocyte Esterase Large H (Negative) Urine RBC 30 H (0-5) /hpf Urine WBC 28 H (0-5) /hpf Hyaline Casts 7 H (0-2) /lpf Urine Mucus Rare H (None) /hpf Urine Yeast (Budding) Few H (None) /hpf 02/06/19 02/06/19 Range/Units 05:42 05:52 WBC (3.8-10.6) k/uL RBC (4.30-5.90) m/uL Hgb (13.0-17.5) gm/dL Hct (39.0-53.0) % MCHC (31.0-37.0) g/dL RDW (11.5-15.5) % Neutrophils # (1.3-7.7) k/uL Sodium 136 L (137-145) mmol/L Potassium 3.2 L (3.5-5.1) mmol/L Chloride 87 L (98-107) mmol/L Carbon Dioxide 40 H (22-30) mmol/L BUN 60 H (9-20) mg/dL Creatinine 1.99 H (0.66-1.25) mg/dL Glucose 130 H (74-99) mg/dL POC Glucose (mg/dL) 155 H (75-99) mg/dL Urine Protein (Negative) Urine Blood (Negative) Ur Leukocyte Esterase (Negative) Urine RBC (0-5) /hpf Urine WBC (0-5) /hpf Hyaline Casts (0-2) /lpf Urine Mucus (None) /hpf Urine Yeast (Budding) (None) /hpf Microbiology - Last 24 Hours (Table) 02/01/19 12:13 Catheter Tip Culture - Preliminary Catheter Tip Assessment and Plan Plan: Assessment and plan #1 diastolic congestive heart failure acute on chronic #2 Acute on chronic renal failure #3 acute on chronic renal failure #4 hypertension #5 hyperlipidemia #6 morbid obesity #7 diabetes #8 left toe gangrene status post amputation in December of this year #9 anemia Plan From cardiology's perspective, we'll continue with current dose of IV push Lasix, adjustments as per nephrology.. Continue to monitor intake and output along with daily weights and daily lytes BUN and creatinine. DNP note has been reviewed, I agree with a documented findings and plan of care. Patient was seen and examined.
[2019-02-06 12:02] LABS: Glucose,Whole Blood 192 mg/dL (75-99)
--- NOTE | 2019-02-06 12:35 | CT ---
EXAMINATION TYPE: CT abdomen pelvis wo con DATE OF EXAM: 02/06/2019 COMPARISON: None INDICATION: Generalized pain DLP: 1127.4 mGycm, Automated exposure control for dose reduction was used. CONTRAST: 0 mL of Isovue 300. Study performed with Oral Contrast TECHNIQUE: Axial images were obtained from above the diaphragm to the pubic rami in the axial plane a t 5 mm thick sections. Reconstructed images are reviewed on the computer in the coronal plane. FINDINGS: Limited CT sections are obtained the lung bases. There are small bilateral pleural effusions. Compre ssive atelectasis is likely present at the right base. A small pneumonia could be considered.. CT ABDOMEN: The stomach is incompletely distended. Wall thickening within the fundus and body is not excluded. Additionally, some wall thickening could be considered within the first and second portions of the duodenum. Third portion of the duodenum proximally may be wall thickened. Fourth portion appe ars normal. Obstruction is not identified. Oral contrast extends to the distal small bowel loops. Liver: Normal Spleen: Normal Pancreas: Normal Adrenal glands: The adrenal glands are normal. Gallbladder: Normal Kidneys: No masses are evident. No hydronephrosis is present. No cysts are present. Delayed images were obtained through the kidneys, which remain unremarkable. Aorta: Vascular calcification is within the aorta. Inferior vena cava: Normal. CT PELVIS: Distal small bowel loops within the lower abdomen and within the pelvis appear normal. Fecal debris i s through the colon. Mild fecal retention may be present. Obstruction is not identified. There are lo ops of bowel which are incompletely distended or lack oral contrast limiting their evaluation. Appendix: Normal as visualized. Urinary bladder: Decompressed with Machado catheter. Air is within the urinary bladder. Urinary bladder cannot be well evaluated at this time Genitourinary structures: Prostate appears within normal limits Osseous structures: No suspicious lytic or sclerotic lesions. Spondylosis within the lower thoracic s pine. IMPRESSIONS: 1. Wall thickening within the fundus and body the stomach and within the duodenum is suspected. This could be related to incomplete distention. Consider additional evaluation with upper GI. Correlate w ith patient's symptoms. 2. Urinary bladder decompressed the Machado catheter which may account for air within urinary bladder. Consider cystitis. Urinary bladder cannot be well evaluated this time. 3. Right lower lobe compressive atelectasis or pneumonia. 4. Small bilateral pleural effusions
[2019-02-06 17:04] LABS: Glucose,Whole Blood 151 mg/dL (75-99)
[2019-02-06] MEDS: ALPRAZolam 1 MG TAB PO SCH (19:29)
[2019-02-06 20:20] LABS: Glucose,Whole Blood 183 mg/dL (75-99)
[2019-02-06] MEDS ORDERED: BISACODYL 5 MG TABLET.DR PO PRN (21:05)
[2019-02-06] MEDS: lamoTRIgine 100 MG TAB PO SCH (21:06)
[2019-02-06] MEDS: ATORVASTATIN 80 MG TAB PO SCH (21:07)
[2019-02-07 06:11] LABS: Anisocytosis Slight; Basophils % (A) 1 %; Eosinophils # (A) 0.3 k/uL (0-0.7); Eosinophils % (A) 3 %; HGB 9.3 gm/dL (13.0-17.5); Hypochromasia Marked; Lymphocytes % (A) 11 %; MCH 26.2 pg (25.0-35.0); MCV 87.2 fL (80.0-100.0); Monocytes # (A) 0.7 k/uL (0-1.0); Monocytes % (A) 8 %; Neutrophils # (A) 7.1 k/uL (1.3-7.7); Neutrophils % (A) 77 %; Platelet Count 400 k/uL (150-450); Poikilocytosis Moderate; RBC 3.56 m/uL (4.30-5.90); RDW 16.3 % (11.5-15.5); WBC 9.2 k/uL (3.8-10.6)
[2019-02-07 06:17] LABS: Glucose,Whole Blood 126 mg/dL (75-99)
[2019-02-07 06:21] LABS: Calcium 8.9 mg/dL (8.4-10.2); Potassium 3.6 mmol/L (3.5-5.1)
[2019-02-07] MEDS: INSULIN ASPART (NovoLOG) 100 UNIT/ML VIAL SQ SCH ×4 (06:26→21:04)
[2019-02-07] MEDS ORDERED: POTASSIUM CHLORIDE ER 20 MEQ TAB.ER PO SCH ×2 (08:00→23:00)
[2019-02-07] MEDS: SERTRALINE 50 MG TAB PO SCH (08:43)
[2019-02-07] MEDS: HEPARIN SODIUM,PORCINE 5,000 UNIT/ML 1 ML VIAL SQ SCH ×2 (08:44→20:40)
[2019-02-07] MEDS: INSULIN DETEMIR (LEVEMIR) 100 UNIT/ML SYR SQ SCH (08:44)
[2019-02-07] MEDS: ASPIRIN 81 MG PO SCH (08:44)
[2019-02-07] MEDS: hydrALAZINE HCL 50 MG TAB PO SCH (08:48)
--- NOTE | 2019-02-07 09:32 | P.PN ---
Subjective Progress Note Date: 02/07/19 Principal diagnosis: This is a 58-year-old male seen in consultation because of cardiorenal syndrome with acute kidney injury and chronic kidney disease. He is on Lasix which was changed from a drip to IV Lasix as of day before yesterday. He continues to feel well he says he walked on his own without any help and had a good breakfast. On room air. Denies any dizziness chest pain cough fever chills. His chest x-ray shows pneumonia on the right side with small amount of effusion, with blunting of the right costophrenic angle. A computed tomography scan of the abdomen and pelvis shows wall thickening within the fundus and body of the stomach and duodenum. Bilateral small pleural effusions and right basal atelectasis and pneumonia is noted Creatinine has gone up minimally from 1.8 on admission to 2.09 this morning.His baseline creatinine is between 0.78-1.09 as of 01/08/2019 and 01/09/2019 His blood pressure is somewhat low and he is on hydralazine 50 twice a day, Lasix 60 IV every 12 metolazone 5 daily metoprolol 25 twice a day. Yesterday he did complain of heartburn but he does not have one today. Objective - Vital Signs Vital signs: Vital Signs Temp 98 F 02/07/19 08:00 Pulse 79 02/07/19 08:00 Resp 16 02/07/19 08:00 BP 94/64 02/07/19 08:00 Pulse Ox 94 L 02/07/19 08:00 Intake & Output 02/06/19 02/07/19 02/07/19 18:59 06:59 18:59 Intake Total 1340 290 Output Total 1699 2024 Balance -360 -1736 Weight 113.4 kg Intake: Intake, IV Titration 50 Amount cefTRIAXone 2 gm In 50 Sodium Chloride 0.9% 50 ml @ 100 mls/hr IVPB Q24HR@2100 [facility] Rx#: [id number] Oral 1340 240 Output: Urine [id number] Uretheral (Machado) 800 Other: Voiding Method Indwelling Catheter Indwelling Catheter # Voids 0 # Bowel Movements 1 On examination he is morbidly obese, on minimal exertion he felt weak and tired. His blood pressures lying down was 98/53 with heart rate of 89 and standing up was 98/55 with a heart rate of 88. HEENT exam no JVP neck is supple no facial asymmetry Lungs are clear to auscultation fair air entry bilaterally Heart sounds are unremarkable for any murmur rub gallop Abdomen is obese nontender Extremity exam was 2-3+ edema Neurologically awake alert oriented. He was able to stand up on his own but with some difficulty - Labs CBC & Chem 7: 02/07/19 05:34 02/07/19 05:34 Labs: Abnormal Lab Results - Last 24 Hours (Table) 02/06/19 02/06/19 02/06/19 Range/Units 11:47 16:57 20:18 RBC (4.30-5.90) m/uL Hgb (13.0-17.5) gm/dL Hct (39.0-53.0) % MCHC (31.0-37.0) g/dL RDW (11.5-15.5) % Chloride (98-107) mmol/L Carbon Dioxide (22-30) mmol/L BUN (9-20) mg/dL Creatinine (0.66-1.25) mg/dL POC Glucose (mg/dL) 192 H 151 H 183 H (75-99) mg/dL 02/07/19 02/07/19 02/07/19 Range/Units 05:34 05:34 06:14 RBC 3.56 L (4.30-5.90) m/uL Hgb 9.3 L (13.0-17.5) gm/dL Hct 31.0 L (39.0-53.0) % MCHC 30.0 L (31.0-37.0) g/dL RDW 16.3 H (11.5-15.5) % Chloride 89 L (98-107) mmol/L Carbon Dioxide 40 H (22-30) mmol/L BUN 57 H (9-20) mg/dL Creatinine 2.09 H (0.66-1.25) mg/dL POC Glucose (mg/dL) 126 H (75-99) mg/dL Assessment and Plan Assessment: Impression 1. Acute kidney injury secondary to cardiorenal syndrome creatinine is slightly up from 1.8 on admission to 2 this morning , his blood pressure is somewhat low and is on aggressive diuresis regimen with Lasix 60 IV twice a day and metolazone. 2. 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 Urinalysis on 02/05/2019 yesterday showed 1+ protein and previously was trace. Possible diabetic nephropathy. 3. Congestive heart failure improved on Lasix. 4. Hypotension secondary to diastolic dysfunction. He is on metoprolol 25 twice a day and Lasix 60 IV every 12, metolazone 5 twice a day, hydralazine 50 twice a day, and metoprolol 25 twice a day. 5. Anemia with hemoglobin 9.2> 9.3 , stable Recommendation. 1. Suggest decreasing the hydralazine to 25 a twice a day and hold for blood sugar less than 100 systolic. 2. Maintain current diuretic regimen. 3. Monitor labs. 5. Pending iron saturation.
[2019-02-07] MEDS: ALPRAZolam 1 MG TAB PO SCH (10:31)
[2019-02-07] MEDS: METOPROLOL TARTRATE 25 MG TAB PO SCH ×2 (11:36→20:39)
[2019-02-07] MEDS: FUROSEMIDE 10 MG/ML 10 ML VIAL IV SCH ×2 (11:36→20:39)
[2019-02-07] MEDS: METOLAZONE 5 MG TAB PO SCH (11:36)
[2019-02-07 12:10] LABS: Glucose,Whole Blood 108 mg/dL (75-99)
--- NOTE | 2019-02-07 13:27 | P.PN ---
Subjective Progress Note Date: 02/07/19 Principal diagnosis: Congestive heart failure secondary to diastolic dysfunction This is a pleasant 58-year-old gentleman with a past medical history significant for CHF secondary to diastolic dysfunction, chronic kidney disease, hypertension, dyslipidemia, as well as multiple comorbid conditions, who was admitted to the hospital with symptoms of worsening peripheral edema as well as shortness of breath and was diagnosed with CHF secondary to diastole dysfunction. On follow-up with the patient today, 02/07/2019, is feeling overall better. He still have mild bilateral lower extremities edema. Hemodynamically the pressure was on the low side and because of that the dose of hydralazine was reduced by the nephrology team. He continues to be on IV Lasix which has been managed mainly by the nephrology team. The creatinine is a slightly worse than yesterday. This is likely related to the low blood pressure. Objective - Vital Signs Vital signs: Vital Signs Temp 98 F 02/07/19 11:13 Pulse 77 02/07/19 11:13 Resp 16 02/07/19 11:13 BP 107/69 02/07/19 11:13 Pulse Ox 95 02/07/19 11:13 Intake & Output 02/06/19 02/07/19 02/07/19 18:59 06:59 18:59 Intake Total 1340 290 222 Output Total 1699 2024 1000 Balance -242 -7631 -304 Weight 113.4 kg Intake: Intake, IV Titration 50 Amount cefTRIAXone 2 gm In 50 Sodium Chloride 0.9% 50 ml @ 100 mls/hr IVPB Q24HR@2100 [facility] Rx#: [id number] Oral 1340 240 222 Output: Urine 0 2024 1000 Uretheral ([place]) 800 1000 Other: Voiding Method Indwelling Catheter Indwelling Catheter Indwelling Catheter # Voids 0 # Bowel Movements 1 - Constitutional General appearance: Present: no acute distress - Respiratory Respiratory: bilateral: diminished - Cardiovascular Rhythm: regular Heart sounds: normal: S1, S2 - Labs CBC & Chem 7: 02/07/19 05:34 02/07/19 05:34 Labs: Abnormal Lab Results - Last 24 Hours (Table) 02/06/19 02/06/19 02/07/19 Range/Units 16:57 20:18 05:34 RBC 3.56 L (4.30-5.90) m/uL Hgb 9.3 L (13.0-17.5) gm/dL Hct 31.0 L (39.0-53.0) % MCHC 30.0 L (31.0-37.0) g/dL RDW 16.3 H (11.5-15.5) % Chloride (98-107) mmol/L Carbon Dioxide (22-30) mmol/L BUN (9-20) mg/dL Creatinine (0.66-1.25) mg/dL POC Glucose (mg/dL) 151 H 183 H (75-99) mg/dL 02/07/19 02/07/19 02/07/19 Range/Units 05:34 06:14 12:01 RBC (4.30-5.90) m/uL Hgb (13.0-17.5) gm/dL Hct (39.0-53.0) % MCHC (31.0-37.0) g/dL RDW (11.5-15.5) % Chloride 89 L (98-107) mmol/L Carbon Dioxide 40 H (22-30) mmol/L BUN 57 H (9-20) mg/dL Creatinine 2.09 H (0.66-1.25) mg/dL POC Glucose (mg/dL) 126 H 108 H (75-99) mg/dL Assessment and Plan Assessment: Assessment #1 congestive heart failure secondary to diastole dysfunction, acute on chronic #2 chronic kidney disease #3 multiple comorbid conditions Plan #1 agree on decreasing the dose of hydralazine #2 continue the current dose of Lasix IV #3 follow-up with the patient
--- NOTE | 2019-02-07 13:34 | P.PN ---
Subjective 58-year-old gentleman admitted for seizure exacerbation and acute renal failure. He was started on Lasix drip initially. Cardiology and nephrology are following the patient. His Lasix drip was discontinued and was started on Lasix 60 mg twice a day IV push. Infectious disease also consulted for cellulitis in the scrotal area. On 02/05/2019 Patient says any shortness of breath is better. No cough, No chest pain racing heart He's trying to get up and walk On 02/06/2019 Patient is complaining of nausea and burning in the epigastric area He is alert oriented 3 this morning. Apparently he was having some black. Yesterday CT of the head was done which was negative 02/07/2019 Patient has no complaints at this time His epigastric pain is better No chest pain or racing heart, no cough no shortness of breath Objective - Vital Signs Vital signs: Vital Signs Temp 98 F 02/07/19 11:13 Pulse 77 02/07/19 11:13 Resp 16 02/07/19 11:13 BP 107/69 02/07/19 11:13 Pulse Ox 95 02/07/19 11:13 Intake & Output 02/06/19 02/07/19 02/07/19 18:59 06:59 18:59 Intake Total 1340 290 222 Output Total 1699 2024 1000 Balance -793 -8567 -807 Weight 113.4 kg Intake: Intake, IV Titration 50 Amount cefTRIAXone 2 gm In 50 Sodium Chloride 0.9% 50 ml @ 100 mls/hr IVPB Q24HR@2100 [facility] Rx#: [id number] Oral 1340 240 222 Output: Urine 1699 2024 1000 Uretheral ([place]) 800 1000 Other: Voiding Method Indwelling Catheter Indwelling Catheter Indwelling Catheter # Voids 0 # Bowel Movements 1 - Exam On exam, alert and oriented x3. HEENT: Conjunctivae normal. eyes normal. NECK: No JVD. No thyroid enlargement. No LNs CARDIOVASCULAR: S1-S2 positive RESPIRATION: Breath sounds diminished in the bases. No rhonchi or crackles. No bronchial breathing. ABDOMEN: Soft, nontender today epigastric area. No guarding. no masses palpable. No ascites, No hepatosplenomegaly.Bowel sounds heard. swelling of the scrotum appreciated. LEGS: He is having +2 pitting edema. NERVOUS SYSTEM: Cranial N 2-12 grossly normal. Moves all 4 limbs. No focal deficits. No sensory deficit. No signs of cerebellar dysfucntion. Skin: no ulcer no rash . He has laceration to his left wrist - Labs CBC & Chem 7: 02/07/19 05:34 02/07/19 05:34 Labs: Abnormal Lab Results - Last 24 Hours (Table) 02/06/19 02/06/19 02/07/19 Range/Units 16:57 20:18 05:34 RBC 3.56 L (4.30-5.90) m/uL Hgb 9.3 L (13.0-17.5) gm/dL Hct 31.0 L (39.0-53.0) % MCHC 30.0 L (31.0-37.0) g/dL RDW 16.3 H (11.5-15.5) % Chloride (98-107) mmol/L Carbon Dioxide (22-30) mmol/L BUN (9-20) mg/dL Creatinine (0.66-1.25) mg/dL POC Glucose (mg/dL) 151 H 183 H (75-99) mg/dL 02/07/19 02/07/19 02/07/19 Range/Units 05:34 06:14 12:01 RBC (4.30-5.90) m/uL Hgb (13.0-17.5) gm/dL Hct (39.0-53.0) % MCHC (31.0-37.0) g/dL RDW (11.5-15.5) % Chloride 89 L (98-107) mmol/L Carbon Dioxide 40 H (22-30) mmol/L BUN 57 H (9-20) mg/dL Creatinine 2.09 H (0.66-1.25) mg/dL POC Glucose (mg/dL) 126 H 108 H (75-99) mg/dL Assessment and Plan Assessment: - CHF exacerbation with diastolic dysfunction - AK I due to prerenal factors - Cardiorenal syndrome - Bilateral foot infection cellulitis - Scrotal edema - Enterobacter hormaechi positive from wound cultures - Anemia - Hypertension - Diabetes mellitus Plan 02/05/2019 - Continue Lasix as per nephrology recommendations - Cardiology following the patient procedures evaluation - Continue antibiotics as per ID recommendations - Monitor lites and kidney functions - PTOT - We'll continue to monitor the patient 02/06/2019 - We'll order for lipase level and CT abdomen and pelvis - We'll give him GI cocktail for his epigastric pain and tenderness - We'll continue Lasix as per nephrology recommendations - Infectious disease on board for cellulitis. Continue antibiotics as per ID recommendations - Continue rest of the medical care - We'll follow up on the patient 02/07/2019 - We'll consult GI for further evaluation regarding the fundus, body of stomach and duodenal kitchen. - Continue IV Lasix as per nephrology recommendations - Continue rest of the medical care - CT chest also shows possible atelectasis or pneumonia. I think it's more atelectasis the patient has no cough or shortness of breath is vitals are HIS LAB WORK SHOWS NO WBCS. WE'LL CONTINUE TO MONITOR THE PATIENT. - Continue antibiotics for now Time with Patient: Less than 30
[2019-02-07 17:21] LABS: Glucose,Whole Blood 108 mg/dL (75-99)
[2019-02-07] MEDS: POTASSIUM CHLORIDE ER 20 MEQ TAB.ER PO SCH ×2 (17:32→17:58)
[2019-02-07] MEDS: ATORVASTATIN 80 MG TAB PO SCH (20:39)
[2019-02-07] MEDS: lamoTRIgine 100 MG TAB PO SCH (20:39)
[2019-02-07] MEDS: hydrALAZINE HCL 25 MG TAB PO SCH (20:39)
[2019-02-07 20:54] LABS: Glucose,Whole Blood 139 mg/dL (75-99)
[2019-02-08 05:40] LABS: Glucose,Whole Blood 134 mg/dL (75-99)
[2019-02-08] MEDS: INSULIN ASPART (NovoLOG) 100 UNIT/ML VIAL SQ SCH ×4 (06:05→21:20)
[2019-02-08 06:59] LABS: Anisocytosis Slight; HCT 31.5 % (39.0-53.0); HGB 9.2 gm/dL (13.0-17.5); Hypochromasia Marked; MCH 25.7 pg (25.0-35.0); MCHC 29.2 g/dL (31.0-37.0); MCV 88.1 fL (80.0-100.0); Mean Platelet Volume 7.2; Platelet Count 415 k/uL (150-450); Poikilocytosis Moderate; RBC 3.58 m/uL (4.30-5.90); RDW 16.5 % (11.5-15.5); WBC 11.6 k/uL (3.8-10.6)
[2019-02-08 07:09] LABS: Calcium 8.9 mg/dL (8.4-10.2); Potassium 4.4 mmol/L (3.5-5.1)
[2019-02-08] MEDS: METOPROLOL TARTRATE 25 MG TAB PO SCH ×2 (09:12→20:53)
[2019-02-08] MEDS: ASPIRIN 81 MG PO SCH (09:12)
[2019-02-08] MEDS: SERTRALINE 50 MG TAB PO SCH (09:12)
[2019-02-08] MEDS: METOLAZONE 5 MG TAB PO SCH (09:12)
[2019-02-08] MEDS: FUROSEMIDE 10 MG/ML 10 ML VIAL IV SCH (09:12)
[2019-02-08] MEDS: INSULIN DETEMIR (LEVEMIR) 100 UNIT/ML SYR SQ SCH (09:13)
[2019-02-08] MEDS: HEPARIN SODIUM,PORCINE 5,000 UNIT/ML 1 ML VIAL SQ SCH ×2 (09:13→20:53)
[2019-02-08] MEDS: hydrALAZINE HCL 25 MG TAB PO SCH ×2 (09:13→20:53)
[2019-02-08] MEDS: ALPRAZolam 1 MG TAB PO SCH (09:18)
[2019-02-08 11:46] LABS: Glucose,Whole Blood 219 mg/dL (75-99)
--- NOTE | 2019-02-08 12:41 | P.CONS ---
History of Present Illness - Reason for Consult Consult date: 02/08/19 Abnormal computed tomography scan Requesting physician: Tyshawn Carrillo - Chief Complaint Testicular swelling - History of Present Illness 58-year-old male with multiple medical comorbidities including diabetes mellitus, hypertension, hyperlipidemia, history of osteomyelitis and peripheral vascular disease who presented to the hospital with complaints of 1 month of increasing scrotal edema. The patient is currently being seen and managed for acute exacerbation of his distant heart failure as well as scrotal cellulitis on antibiotic therapy. The patient reported a 30 minute episode of right upper quadrant pain yesterday he reports that the pain was sharp and without radiation. He denies any prior episodes of similar pain. No history of GERD or dysphagia. He does report intermittent use of Aleve, but states that this is infrequent. The pain resolved on its own and he is had no further episodes. Evaluation with computed tomography scan of the abdomen was significant for wall thickening of the fundus of the stomach possibly secondary to under distention with other findings noted. The patient has had prior colonoscopy in 08/16/2016 which was significant for internal hemorrhoids and polypectomy but has not had EGD in the past. Laboratory evaluation is significant for hemoglobin 9.2 stable from 9.3 with MCV 83.1, WBC 11.6, INR 1.4, total bilirubin 0.6, [place]and phosphatase 154, AST 21, ALTs 60. Review of Systems REVIEW OF SYSTEMS: CONSTITUTIONAL: Denies any fevers, chills, weight change or fatigue. CARDIOVASCULAR: Denies any chest pain, palpitations high or low blood pressures RESPIRATORY: Denies any hemoptysis or cough. GENITOURINARY: No dysuria or hematuria, currently with [place] catheter was. MUSCULOSKELETAL: No weakness reported. SKIN: Denies any new rashes or lesions, jaundice or pallor. PSYCHIATRIC: History of suicide attempt history of bipolar disorder. NEUROLOGY: Denies headache, denies any new focal deficits. EARS/NOSE/THROAT: No recent hearing change, congestion, nasal discharge or sore throat. EYES: No pain in eyes, discharge or change in vision. GASTROINTESTINAL: As per HPI. 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 History of Any Multi-Drug Resistant Organisms: None Reported Past Surgical History: Adenoidectomy, Tonsillectomy Additional Past Surgical History / Comment(s): L great toe amputation, L 5th toe amputation, L writst laceration repair, colonoscopy with benign polypectomies Past Anesthesia/Blood Transfusion Reactions: No Reported Reaction Past Psychological History: Anxiety, Bipolar, Depression Additional Psychological History / Comment(s): Pt resides with his parents. He currently is using a walker. He normally can drive. He has had a recent suicide attempt by cutting L wrist and was admitted to [facility]. He states he no longer feels suicidal. Smoking Status: Former smoker Past Alcohol Use History: None Reported Additional Past Alcohol Use History / Comment(s): Pt started smoking in 1975 and quit in 2015. He states he did relapse for a couple months once since quitting. Past Drug Use History: Marijuana Additional Drug Use History / Comment(s): Pt states he quit smoking marijuana and that he has not smoked marijuana in 4 months. - Past Family History Father Family Medical History: Diabetes Mellitus Additional Family Medical History / Comment(s): Father had gallbladder disease. He is 77yrs old. Mother Family Medical History: Hyperlipidemia Medications and Allergies Home Medications Medication Instructions Recorded Confirmed Type Alogliptin Benzoate [Alogliptin] 25 mg PO DAILY 30 Days #30 tablet 01/19/1901/13 Rx Atorvastatin [Lipitor] 80 mg PO HS 30 Days #30 tab 01/19/19 01/29/19 Rx Furosemide [Lasix] 40 mg PO BID #14 tablet 01/19/19 01/29/19 Rx Metoprolol Tartrate [Lopressor] 25 mg PO BID 30 Days #60 tab 01/19/19 01/29/19 Rx cloNIDine HCL [Catapres] 0.1 mg PO BID 30 Days #60 tab 01/19/19 01/29/19 Rx lamoTRIgine [LaMICtal] 100 mg PO HS@2100 01/20/19 01/29/19 History ALPRAZolam [Xanax] 1 mg PO DAILY 01/29/19 01/29/19 History INSULIN ASPART (NovoLOG) [NovoLOG 5 unit SQ AC-SUPPER 01/29/19 01/29/19 History (formulary)] Insulin Glargine,Hum.rec.anlog 35 unit SQ DAILY 01/29/19 01/29/19 History [Lantus Solostar] Sertraline HCl [Zoloft] 50 mg PO DAILY 01/29/19 01/29/19 History metFORMIN HCL 1,000 mg PO BID 01/29/19 01/29/19 History Allergies Allergy/AdvReac Type Severity Reaction Status Date / Time No Known Allergies Allergy Verified 01/29/19 08:39 Physical Exam Vitals: Vital Signs Temp Pulse Resp BP Pulse Ox 02/08/19 08:30 98.1 F 89 18 103/70 97 02/08/19 04:00 98.4 F 84 17 111/60 98 02/08/19 00:00 97.4 F L 76 15 96/64 93 L 02/07/19 20:00 98.3 F 81 17 112/68 98 02/07/19 16:00 98.5 F 78 16 108/66 94 L Intake and Output 02/07/19 02/08/19 02/08/19 22:59 06:59 14:59 Intake Total 250 20 227 Output Total 1150 1325 1500 Balance -900 1305 1273 Intake: IV 10 20 5 Invasive Line 5 10 20 5 Oral 240 222 Output: Urine 1150 1325 1500 Other: Voiding Method Indwelling Catheter Indwelling Catheter Indwelling Catheter Weight 110.5 kg On physical examination, patient appears comfortable in no apparent distress. HEAD: Normocephalic, atraumatic. EYES: No scleral icterus. No conjunctival injection. MOUTH: No lesions, tongue midline. NECK: Trachea midline, no gross abnormalities. CHEST: Decreased air entry bilaterally. HEART: Regular rate and rhythm. ABDOMEN: Soft, obese. Bowel sounds are positive. No organomegaly. No guarding or rigidity. EXTREMITIES: Left great toe amputation with right foot bandaged. SKIN: No jaundice. NEUROLOGIC: Alert and oriented x3. Results CBC & Chem 7: 02/08/19 05:37 02/08/19 05:37 Labs: Abnormal Lab Results - Last 24 Hours (Table) 02/07/19 02/07/19 02/07/19 Range/Units 16:11 16:48 20:48 WBC (3.8-10.6) k/uL RBC (4.30-5.90) m/uL Hgb (13.0-17.5) gm/dL Hct (39.0-53.0) % MCHC (31.0-37.0) g/dL RDW (11.5-15.5) % Potassium 3.4 L (3.5-5.1) mmol/L Chloride (98-107) mmol/L Carbon Dioxide (22-30) mmol/L BUN (9-20) mg/dL Creatinine (0.66-1.25) mg/dL Glucose (74-99) mg/dL POC Glucose (mg/dL) 108 H 139 H (75-99) mg/dL 02/08/19 02/08/19 02/08/19 Range/Units 05:37 05:37 05:39 WBC 11.6 H (3.8-10.6) k/uL RBC 3.58 L (4.30-5.90) m/uL Hgb 9.2 L (13.0-17.5) gm/dL Hct 31.5 L (39.0-53.0) % MCHC 29.2 L (31.0-37.0) g/dL RDW 16.5 H (11.5-15.5) % Potassium (3.5-5.1) mmol/L Chloride 90 L (98-107) mmol/L Carbon Dioxide 40 H (22-30) mmol/L BUN 53 H (9-20) mg/dL Creatinine 1.99 H (0.66-1.25) mg/dL Glucose 113 H (74-99) mg/dL POC Glucose (mg/dL) 134 H (75-99) mg/dL 02/08/19 Range/Units 11:44 WBC (3.8-10.6) k/uL RBC (4.30-5.90) m/uL Hgb (13.0-17.5) gm/dL Hct (39.0-53.0) % MCHC (31.0-37.0) g/dL RDW (11.5-15.5) % Potassium (3.5-5.1) mmol/L Chloride (98-107) mmol/L Carbon Dioxide (22-30) mmol/L BUN (9-20) mg/dL Creatinine (0.66-1.25) mg/dL Glucose (74-99) mg/dL POC Glucose (mg/dL) 219 H (75-99) mg/dL CT scan - abdomen: report reviewed (Computed tomography scan of the abdomen significant for thickening of the fundus possibly secondary to under distention with other findings also noted in report.) Assessment and Plan (1) Abdominal pain Narrative/Plan: 58-year-old male currently receiving treatment for exacerbation of CHF on Lasix therapy and scrotal cellulitis on antibiotic therapy who reported one episode of right upper quadrant abdominal pain lasting 30 minutes in duration. No prior episodes or further episodes since yesterday with computed tomography scan of the abdomen done in evaluation reporting some fundal thickening which possibly secondary to under distention. Unclear etiology differential includes peptic ulcer disease, gastritis, symptomatic cholelithiasis, functional disorder or other etiology. Current Visit: Yes Status: Acute Code(s): R10.9 - UNSPECIFIED ABDOMINAL PAIN SNOMED Code(s): 92998020 (2) Scrotal edema Current Visit: No Status: Acute Code(s): N50.89 - OTHER SPECIFIED DISORDERS OF THE MALE GENITAL ORGANS SNOMED Code(s): 29395473 Plan: Supportive care Okay for diet Nothing by mouth after midnight Will order ultrasound of the abdomen to rule out choledocholithiasis Plan on EGD tomorrow afternoon for further evaluation Further recommendations pending findings Thank you for allowing us to participate in the care of the patient we will continue to follow
--- NOTE | 2019-02-08 12:43 | P.PN ---
Subjective Progress Note Date: 02/08/19 Principal diagnosis: Congestive heart failure secondary to diastolic dysfunction This is a pleasant 58-year-old gentleman with a past medical history significant for CHF secondary to diastolic dysfunction, chronic kidney disease, hypertension, dyslipidemia, as well as multiple comorbid conditions, who was admitted to the hospital with symptoms of worsening peripheral edema as well as shortness of breath and was diagnosed with CHF secondary to diastole dysfunction. On follow-up with the patient today, 02/08/2019, the patient seems to be doing better overall. Hemodynamically he continues to be stable. He continues to be on Lasix at 60 mg IV 3 times a day and creatinine slightly better today. Objective - Vital Signs Vital signs: Vital Signs Temp 98.1 F 02/08/19 08:30 Pulse 89 02/08/19 08:30 Resp 18 02/08/19 08:30 BP 103/70 02/08/19 08:30 Pulse Ox 97 02/08/19 08:30 Intake & Output 02/07/19 02/08/19 02/08/19 18:59 06:59 18:59 Intake Total 902 30 227 Output Total 2150 1325 1500 Balance -1248 -1295 -1273 Weight 110.5 kg Intake: IV 30 5 Invasive Line 5 30 5 Oral 902 222 Output: Urine 2150 1325 1500 Uretheral ([place]) 1000 Other: Voiding Method Indwelling Catheter Indwelling Catheter Indwelling Catheter - Constitutional General appearance: Present: no acute distress - Respiratory Respiratory: bilateral: diminished - Cardiovascular Heart sounds: normal: S1, S2 - Labs CBC & Chem 7: 02/08/19 05:37 02/08/19 05:37 Labs: Abnormal Lab Results - Last 24 Hours (Table) 02/07/19 02/07/19 02/07/19 Range/Units 16:11 16:48 20:48 WBC (3.8-10.6) k/uL RBC (4.30-5.90) m/uL Hgb (13.0-17.5) gm/dL Hct (39.0-53.0) % MCHC (31.0-37.0) g/dL RDW (11.5-15.5) % Potassium 3.4 L (3.5-5.1) mmol/L Chloride (98-107) mmol/L Carbon Dioxide (22-30) mmol/L BUN (9-20) mg/dL Creatinine (0.66-1.25) mg/dL Glucose (74-99) mg/dL POC Glucose (mg/dL) 108 H 139 H (75-99) mg/dL 02/08/19 02/08/19 02/08/19 Range/Units 05:37 05:37 05:39 WBC 11.6 H (3.8-10.6) k/uL RBC 3.58 L (4.30-5.90) m/uL Hgb 9.2 L (13.0-17.5) gm/dL Hct 31.5 L (39.0-53.0) % MCHC 29.2 L (31.0-37.0) g/dL RDW 16.5 H (11.5-15.5) % Potassium (3.5-5.1) mmol/L Chloride 90 L (98-107) mmol/L Carbon Dioxide 40 H (22-30) mmol/L BUN 53 H (9-20) mg/dL Creatinine 1.99 H (0.66-1.25) mg/dL Glucose 113 H (74-99) mg/dL POC Glucose (mg/dL) 134 H (75-99) mg/dL 02/08/19 Range/Units 11:44 WBC (3.8-10.6) k/uL RBC (4.30-5.90) m/uL Hgb (13.0-17.5) gm/dL Hct (39.0-53.0) % MCHC (31.0-37.0) g/dL RDW (11.5-15.5) % Potassium (3.5-5.1) mmol/L Chloride (98-107) mmol/L Carbon Dioxide (22-30) mmol/L BUN (9-20) mg/dL Creatinine (0.66-1.25) mg/dL Glucose (74-99) mg/dL POC Glucose (mg/dL) 219 H (75-99) mg/dL Assessment and Plan Assessment: Assessment #1 congestive heart failure secondary to diastole dysfunction, acute on chronic #2 chronic kidney disease #3 multiple comorbid conditions Plan #1 continue the current dose of Lasix which is 60 mg IV twice a day #2 the Lasix has been managed by the nephrology team #3 follow-up with the patient
[2019-02-08] MEDS ORDERED: SODIUM FERRIC GLUCONAT-SUCROSE 125 MG in SODIUM CHLORIDE 0.9% 100 ML IVPB ONE (12:44)
--- NOTE | 2019-02-08 12:45 | P.PN ---
Subjective Progress Note Date: 02/08/19 Principal diagnosis: This is a 58-year-old male seen in consultation because of cardiorenal syndrome with acute kidney injury and chronic kidney disease. He is on Lasix, and basilio use of hypotension yesterday his hydralazine was reduced to 25 twice a day. He has responded well to diuretic regimen and his urine output is 3475 last 24 hours and before that was 3725, 4325. His creatinine on admission was 1.8 went up to 2.09, and is down to 1.9 today He continues to feel well he says he walked on his own without any help and had a good breakfast. On room air. Denies any dizziness chest pain cough fever chills. His chest x-ray shows pneumonia on the right side with small amount of effusion, with blunting of the right costophrenic angle. A computed tomography scan of the abdomen and pelvis shows wall thickening within the fundus and body of the stomach and duodenum. Bilateral small pleural effusions and right basal atelectasis and pneumonia is noted Objective - Vital Signs Vital signs: Vital Signs Temp 98.1 F 02/08/19 08:30 Pulse 89 02/08/19 08:30 Resp 18 02/08/19 08:30 BP 103/70 02/08/19 08:30 Pulse Ox 97 02/08/19 08:30 Intake & Output 02/07/19 02/08/19 02/08/19 18:59 06:59 18:59 Intake Total 902 30 227 Output Total 2150 1325 1500 Balance -1248 1295 -1273 Weight 110.5 kg Intake: IV 30 5 Invasive Line 5 30 5 Oral 902 222 Output: Urine 2150 1325 1500 Uretheral ([place]) 1000 Other: Voiding Method Indwelling Catheter Indwelling Catheter Indwelling Catheter On examination awake alert oriented comfortable HEENT exam no JVP neck is supple no facial asymmetry Lungs are clear to auscultation good air entry bilaterally Heart sounds are unremarkable for any murmur rub gallop Abdomen is obese protuberant nontender Extremity exam was trace edema Neurologically awake alert oriented - Labs CBC & Chem 7: 02/08/19 05:37 02/08/19 05:37 Labs: Abnormal Lab Results - Last 24 Hours (Table) 02/07/19 02/07/19 02/07/19 Range/Units 16:11 16:48 20:48 WBC (3.8-10.6) k/uL RBC (4.30-5.90) m/uL Hgb (13.0-17.5) gm/dL Hct (39.0-53.0) % MCHC (31.0-37.0) g/dL RDW (11.5-15.5) % Potassium 3.4 L (3.5-5.1) mmol/L Chloride (98-107) mmol/L Carbon Dioxide (22-30) mmol/L BUN (9-20) mg/dL Creatinine (0.66-1.25) mg/dL Glucose (74-99) mg/dL POC Glucose (mg/dL) 108 H 139 H (75-99) mg/dL 02/08/19 02/08/19 02/08/19 Range/Units 05:37 05:37 05:39 WBC 11.6 H (3.8-10.6) k/uL RBC 3.58 L (4.30-5.90) m/uL Hgb 9.2 L (13.0-17.5) gm/dL Hct 31.5 L (39.0-53.0) % MCHC 29.2 L (31.0-37.0) g/dL RDW 16.5 H (11.5-15.5) % Potassium (3.5-5.1) mmol/L Chloride 90 L (98-107) mmol/L Carbon Dioxide 40 H (22-30) mmol/L BUN 53 H (9-20) mg/dL Creatinine 1.99 H (0.66-1.25) mg/dL Glucose 113 H (74-99) mg/dL POC Glucose (mg/dL) 134 H (75-99) mg/dL 02/08/19 Range/Units 11:44 WBC (3.8-10.6) k/uL RBC (4.30-5.90) m/uL Hgb (13.0-17.5) gm/dL Hct (39.0-53.0) % MCHC (31.0-37.0) g/dL RDW (11.5-15.5) % Potassium (3.5-5.1) mmol/L Chloride (98-107) mmol/L Carbon Dioxide (22-30) mmol/L BUN (9-20) mg/dL Creatinine (0.66-1.25) mg/dL Glucose (74-99) mg/dL POC Glucose (mg/dL) 219 H (75-99) mg/dL Assessment and Plan Assessment: Impression 1. Acute kidney injury secondary to cardiorenal syndrome creatinine is slightly up from 1.8 on admission to 2 yesterday but down to 1.9 this morning , his blood pressure is somewhat low and is on aggressive diuresis regimen with Lasix 60 IV twice a day and metolazone. 2. 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 Urinalysis on 02/05/2019 yesterday showed 1+ protein and previously was trace. Possible diabetic nephropathy. 3. Congestive heart failure improved on Lasix. 4. Hypotension secondary to diastolic dysfunction. He is on metoprolol 25 twice a day and Lasix 60 IV every 12, metolazone 5 twice a day, hydralazine 50 twice a day, and metoprolol 25 twice a day. 5. Anemia with hemoglobin 9.2 , stable 6. Iron deficiency 6% iron dated 01/29/2019 Recommendation. 1. will discontinue his [place] catheter. 2. Switch from IV Lasix to by mouth Lasix 60 twice a day S 3. IV Ferrlecit 125 mg 1 dose, 4. Possible discharge soon
[2019-02-08 13:27] LABS: Appearance,Urine Clear (Clear); Bilirubin,Urine Negative (Negative); Blood,Urine Moderate (Negative); Budding Yeast,Urine Few /hpf; Color,Urine Yellow; Glucose,Urine (UA) Negative (Negative); Ketones,Urine Negative (Negative); Leukocyte Esterase,Urine Large (Negative); Mucus,Urine Rare /hpf; Nitrite,Urine Negative (Negative); PH, Urine 7.5 (5.0-8.0); Protein,Urine 1+ (Negative); RBC,Urine >182 /hpf (0-5); Specific Gravity,Urine 1.012 (1.001-1.035); Urobilinogen,Urine <2.0 mg/dL (<2.0); WBC,Urine 57 /hpf (0-5)
[2019-02-08] MEDS: FUROSEMIDE 20 MG TAB PO SCH (15:28)
[2019-02-08 17:17] LABS: Glucose,Whole Blood 206 mg/dL (75-99)
[2019-02-08] MEDS: lamoTRIgine 100 MG TAB PO SCH (20:53)
[2019-02-08] MEDS: ATORVASTATIN 80 MG TAB PO SCH (20:53)
[2019-02-08 21:21] LABS: Glucose,Whole Blood 124 mg/dL (75-99)
--- NOTE | 2019-02-08 21:23 | P.PN ---
Subjective 58-year-old gentleman admitted for seizure exacerbation and acute renal failure. He was started on Lasix drip initially. Cardiology and nephrology are following the patient. His Lasix drip was discontinued and was started on Lasix 60 mg twice a day IV push. Infectious disease also consulted for cellulitis in the scrotal area. On 02/05/2019 Patient says any shortness of breath is better. No cough, No chest pain racing heart He's trying to get up and walk On 02/06/2019 Patient is complaining of nausea and burning in the epigastric area He is alert oriented 3 this morning. Apparently he was having some black. Yesterday CT of the head was done which was negative 02/07/2019 Patient has no complaints at this time His epigastric pain is better No chest pain or racing heart, no cough no shortness of breath 02/08/19 Says is feeling better no chest pain, no racing heart epigastric pain better Objective - Vital Signs Vital signs: Vital Signs Temp 98.1 F 02/08/19 19:52 Pulse 88 02/08/19 19:52 Resp 18 02/08/19 19:52 BP 112/59 02/08/19 19:52 Pulse Ox 94 L 02/08/19 19:52 Intake & Output 02/08/19 02/08/19 02/09/19 06:59 18:59 06:59 Intake Total 30 1281 250 Output Total 1325 1500 Balance -1295 -219 250 Weight 110.5 kg Intake: IV 30 15 10 Invasive Line 5 30 15 10 Oral 1266 240 Output: Urine 1325 1500 Other: Voiding Method Indwelling Catheter Indwelling Catheter Urinal - Exam On exam, alert and oriented x3. HEENT: Conjunctivae normal. eyes normal. NECK: No JVD. No thyroid enlargement. No LNs CARDIOVASCULAR: S1-S2 positive RESPIRATION: Breath sounds diminished in the bases. No rhonchi or crackles. No bronchial breathing. ABDOMEN: Soft, nontender today epigastric area. No guarding. no masses palpable. No ascites, No hepatosplenomegaly.Bowel sounds heard. swelling of the scrotum appreciated. LEGS: He is having +2 pitting edema. gangrene on his right toe, left foot wrapped NERVOUS SYSTEM: Cranial N 2-12 grossly normal. Moves all 4 limbs. No focal deficits. No sensory deficit. No signs of cerebellar dysfucntion. Skin: no ulcer no rash . He has laceration to his left wrist - Labs CBC & Chem 7: 02/08/19 05:37 02/08/19 05:37 Labs: Abnormal Lab Results - Last 24 Hours (Table) 02/08/19 02/08/19 02/08/19 Range/Units 05:37 05:37 05:39 WBC 11.6 H (3.8-10.6) k/uL RBC 3.58 L (4.30-5.90) m/uL Hgb 9.2 L (13.0-17.5) gm/dL Hct 31.5 L (39.0-53.0) % MCHC 29.2 L (31.0-37.0) g/dL RDW 16.5 H (11.5-15.5) % Chloride 90 L (98-107) mmol/L Carbon Dioxide 40 H (22-30) mmol/L BUN 53 H (9-20) mg/dL Creatinine 1.99 H (0.66-1.25) mg/dL Glucose 113 H (74-99) mg/dL POC Glucose (mg/dL) 134 H (75-99) mg/dL Urine Protein (Negative) Urine Blood (Negative) Ur Leukocyte Esterase (Negative) Urine RBC (0-5) /hpf Urine WBC (0-5) /hpf Urine Mucus (None) /hpf Urine Yeast (Budding) (None) /hpf 02/08/19 02/08/19 02/08/19 Range/Units 11:44 12:10 17:02 WBC (3.8-10.6) k/uL RBC (4.30-5.90) m/uL Hgb (13.0-17.5) gm/dL Hct (39.0-53.0) % MCHC (31.0-37.0) g/dL RDW (11.5-15.5) % Chloride (98-107) mmol/L Carbon Dioxide (22-30) mmol/L BUN (9-20) mg/dL Creatinine (0.66-1.25) mg/dL Glucose (74-99) mg/dL POC Glucose (mg/dL) 219 H 206 H (75-99) mg/dL Urine Protein 1+ H (Negative) Urine Blood Moderate H (Negative) Ur Leukocyte Esterase Large H (Negative) Urine RBC >182 H (0-5) /hpf Urine WBC 57 H (0-5) /hpf Urine Mucus Rare H (None) /hpf Urine Yeast (Budding) Few H (None) /hpf Assessment and Plan Assessment: - CHF exacerbation with diastolic dysfunction - AK I due to prerenal factors - Cardiorenal syndrome - Bilateral foot infection cellulitis - Scrotal edema - Enterobacter hormaechi positive from wound cultures - Anemia - Hypertension - Diabetes mellitus Plan 02/05/2019 - Continue Lasix as per nephrology recommendations - Cardiology following the patient procedures evaluation - Continue antibiotics as per ID recommendations - Monitor lites and kidney functions - PTOT - We'll continue to monitor the patient 02/06/2019 - We'll order for lipase level and CT abdomen and pelvis - We'll give him GI cocktail for his epigastric pain and tenderness - We'll continue Lasix as per nephrology recommendations - Infectious disease on board for cellulitis. Continue antibiotics as per ID recommendations - Continue rest of the medical care - We'll follow up on the patient 02/07/2019 - We'll consult GI for further evaluation regarding the fundus, body of stomach and duodenal kitchen. - Continue IV Lasix as per nephrology recommendations - Continue rest of the medical care - CT chest also shows possible atelectasis or pneumonia. I think it's more atelectasis the patient has no cough or shortness of breath is vitals are HIS LAB WORK SHOWS NO WBCS. WE'LL CONTINUE TO MONITOR THE PATIENT. - Continue antibiotics for now 02/08/19 - Continue rocephin - lasix changed to oral - continue rest of the medical care - will f/u Time with Patient: Less than 30
[2019-02-09 05:53] LABS: Glucose,Whole Blood 96 mg/dL (75-99)
[2019-02-09] MEDS: INSULIN ASPART (NovoLOG) 100 UNIT/ML VIAL SQ SCH ×4 (06:14→21:35)
[2019-02-09 07:11] LABS: Anisocytosis Slight; HCT 30.6 % (39.0-53.0); HGB 9.1 gm/dL (13.0-17.5); Hypochromasia Marked; MCH 25.8 pg (25.0-35.0); MCHC 29.7 g/dL (31.0-37.0); Platelet Count 396 k/uL (150-450); Poikilocytosis Slight; RBC 3.52 m/uL (4.30-5.90); RDW 16.7 % (11.5-15.5)
[2019-02-09 07:31] LABS: Calcium 8.3 mg/dL (8.4-10.2); Potassium 3.3 mmol/L (3.5-5.1)
[2019-02-09] MEDS: ALPRAZolam 1 MG TAB PO SCH (08:09)
[2019-02-09] MEDS: POTASSIUM CHLORIDE 10 MEQ in WATER FOR INJECTION 1 100ML.BAG IVPB SCH ×4 (08:13→15:34)
[2019-02-09] MEDS: hydrALAZINE HCL 25 MG TAB PO SCH ×2 (09:00→21:31)
[2019-02-09] MEDS: METOPROLOL TARTRATE 25 MG TAB PO SCH ×2 (09:05→21:30)
[2019-02-09] MEDS: SERTRALINE 50 MG TAB PO SCH (09:06)
[2019-02-09] MEDS: HEPARIN SODIUM,PORCINE 5,000 UNIT/ML 1 ML VIAL SQ SCH ×2 (09:06→21:31)
--- NOTE | 2019-02-09 09:09 | US ---
EXAMINATION TYPE: US abdomen complete DATE OF EXAM: 02/09/2019 COMPARISON: CT 2019 CLINICAL HISTORY: possible cholelithiasis. Patient states no abdomen pain or N/V, no abdominal surger ies, exam done portable. EXAM MEASUREMENTS: Liver Length: 18.0 cm Gallbladder Wall: 0.2 cm CBD: 0.4 cm Spleen: 9.8 cm Right Kidney: 13.4 x 7.0 x 6.5 cm Left Kidney: 12.6 x 5.6 x 6.5 cm Difficult and limited study due to patient body habitus Pancreas: obscured by overlying midline bowel gas Liver: wnl Gallbladder: area of ringdown artifact seen along anterior wall Evidence for sonographic Sadler's sign: no CBD: wnl Spleen: wnl Right Kidney: visualized portions wnl, inferior pole limited by overlying bowel gas Left Kidney: No hydronephrosis. Upper IVC: wnl Abd Aorta: visualized portions wnl, limited by overlying midline bowel gas The liver is homogenous. The intrahepatic portion of the IVC and proximal abdominal aorta are within normal limits. There is no evidence of cholelithiasis. Common bile duct is unremarkable. The spl een is unremarkable. Kidneys are symmetric and free of hydronephrosis. No renal lesions are seen. IMPRESSION: 1. Findings of segmental adenomyomatosis within the gallbladder. 2. Obscuration of the pancreas by overlying bowel gas.
[2019-02-09 09:51] LABS: Iron Saturation 9.18 (15.00-50.00)
[2019-02-09 12:03] LABS: Glucose,Whole Blood 113 mg/dL (75-99)
[2019-02-09] MEDS ORDERED: POTASSIUM CHLORIDE ER 20 MEQ TAB.ER PO STA ×2 (12:16→22:53)
[2019-02-09] MEDS: FUROSEMIDE 20 MG TAB PO SCH ×2 (12:37→18:38)
--- NOTE | 2019-02-09 12:52 | P.PN ---
Subjective Patient is seen in follow-up for acute kidney injury. Renal function is stable. Creatinine 1.87 today. Edema has improved significantly since admission. He is maintained on oral diuretics. He is nonoliguric. Weight is trending down. Denies chest pain or shortness of breath. Vital signs are stable. General: The patient appeared well nourished and normally developed. HEENT: Head exam is unremarkable. Neck is without jugular venous distension. LUNGS: Breath sounds decreased. HEART: Rate and Rhythm are regular. First and second heart sounds normal. No murmurs, rubs or gallops. ABDOMEN: Abdominal exam reveals normal bowel sounds. Non-tender and non- distended. EXTREMITITES: 1+ edema. Objective - Vital Signs Vital signs: Vital Signs Temp 98 F 02/09/19 11:07 Pulse 82 02/09/19 11:07 Resp 20 02/09/19 11:07 BP 105/65 02/09/19 11:07 Pulse Ox 96 02/09/19 11:07 Intake & Output 02/08/19 02/09/19 02/09/19 18:59 06:59 18:59 Intake Total 1281 570 0 Output Total 1500 325 Balance -219 570 -325 Weight 108.5 kg Intake: IV 15 40 Invasive Line 5 15 30 Invasive Line 6 10 Intake, IV Titration 50 Amount cefTRIAXone 2 gm In 50 Sodium Chloride 0.9% 50 ml @ 100 mls/hr IVPB Q24HR [facility] Rx#:[id number] Oral 1266 480 0 Output: Urine 1500 325 Other: Voiding Method Indwelling Catheter Urinal Urinal # Voids 2 - Labs CBC & Chem 7: 02/09/19 05:44 02/09/19 05:44 Labs: Abnormal Lab Results - Last 24 Hours (Table) 02/07/19 02/08/19 02/08/19 Range/Units 16:11 12:10 17:02 WBC (3.8-10.6) k/uL RBC (4.30-5.90) m/uL Hgb (13.0-17.5) gm/dL Hct (39.0-53.0) % MCHC (31.0-37.0) g/dL RDW (11.5-15.5) % Sodium (137-145) mmol/L Potassium (3.5-5.1) mmol/L Chloride (98-107) mmol/L Carbon Dioxide (22-30) mmol/L BUN (9-20) mg/dL Creatinine (0.66-1.25) mg/dL POC Glucose (mg/dL) 206 H (75-99) mg/dL Calcium (8.4-10.2) mg/dL Iron 27 L (65-175) ug/dL Iron Saturation 9.18 L (15.00-50.00) Urine Protein 1+ H (Negative) Urine Blood Moderate H (Negative) Ur Leukocyte Esterase Large H (Negative) Urine RBC >182 H (0-5) /hpf Urine WBC 57 H (0-5) /hpf Urine Mucus Rare H (None) /hpf Urine Yeast (Budding) Few H (None) /hpf 02/08/19 02/09/19 02/09/19 Range/Units 21:20 05:44 05:44 WBC 12.0 H (3.8-10.6) k/uL RBC 3.52 L (4.30-5.90) m/uL Hgb 9.1 L (13.0-17.5) gm/dL Hct 30.6 L (39.0-53.0) % MCHC 29.7 L (31.0-37.0) g/dL RDW 16.7 H (11.5-15.5) % Sodium 136 L (137-145) mmol/L Potassium 3.3 L (3.5-5.1) mmol/L Chloride 89 L (98-107) mmol/L Carbon Dioxide 40 H (22-30) mmol/L BUN 50 H (9-20) mg/dL Creatinine 1.87 H (0.66-1.25) mg/dL POC Glucose (mg/dL) 124 H (75-99) mg/dL Calcium 8.3 L (8.4-10.2) mg/dL Iron (65-175) ug/dL Iron Saturation (15.00-50.00) Urine Protein (Negative) Urine Blood (Negative) Ur Leukocyte Esterase (Negative) Urine RBC (0-5) /hpf Urine WBC (0-5) /hpf Urine Mucus (None) /hpf Urine Yeast (Budding) (None) /hpf 02/09/19 Range/Units 11:44 WBC (3.8-10.6) k/uL RBC (4.30-5.90) m/uL Hgb (13.0-17.5) gm/dL Hct (39.0-53.0) % MCHC (31.0-37.0) g/dL RDW (11.5-15.5) % Sodium (137-145) mmol/L Potassium (3.5-5.1) mmol/L Chloride (98-107) mmol/L Carbon Dioxide (22-30) mmol/L BUN (9-20) mg/dL Creatinine (0.66-1.25) mg/dL POC Glucose (mg/dL) 113 H (75-99) mg/dL Calcium (8.4-10.2) mg/dL Iron (65-175) ug/dL Iron Saturation (15.00-50.00) Urine Protein (Negative) Urine Blood (Negative) Ur Leukocyte Esterase (Negative) Urine RBC (0-5) /hpf Urine WBC (0-5) /hpf Urine Mucus (None) /hpf Urine Yeast (Budding) (None) /hpf Microbiology - Last 24 Hours (Table) 02/01/19 12:13 Catheter Tip Culture - Final Catheter Tip Assessment and Plan Plan: Assessment: 1. Acute kidney injury mostly prerenal secondary to cardiorenal syndrome. Creatinine 1.87 today. Baseline creatinine near 1. UA is quite benign. Ultrasound from last month revealed no evidence of hydronephrosis. 2. Dyspnea secondary to volume overload. Improving. 3. Insulin-dependent diabetes mellitus. 4. Anemia. Severe iron deficiency noted. Status post 3 doses of IV iron. 5. Benign hypertension. Controlled. 6. 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 7. Hypomagnesemia secondary to diuresis. Improved. 8. Diastolic CHF. 9. Hypokalemia secondary to diuresis. 10. Metabolic alkalosis secondary to diuresis. Stable. 11. Abdominal discomfort with fundal thickening. GI following. Plan: Maintain Lasix 60 mg orally twice daily. Continue metolazone 5 mg daily. Low-salt diet and 1.5 L fluid restriction. Daily weights. Avoid nephrotoxins. Replace potassium. 60 mEq today. Repeat electrolytes in the morning.
--- NOTE | 2019-02-09 13:48 | XR ---
EXAMINATION TYPE: XR chest 2V DATE OF EXAM: 02/09/2019 COMPARISON: 02/05/2019 HISTORY: Follow-up for congestive heart failure. TECHNIQUE: Frontal and lateral views of the chest are obtained. FINDINGS: There is improved aeration of the lungs with minimal right basilar subsegmental atelectasi s remaining. Cardia mediastinal silhouette is upper limits of normal in size. No sizable pneumothorax . Very trace pleural effusions blunt the costophrenic angles. No acute osseous pathology. Mild-to-mod erate multilevel degenerative changes of the thoracic spine are noted. IMPRESSION: Improved aeration of the lungs with only minimal right basilar atelectasis and trace ple ural effusions remaining.
[2019-02-09] MEDS ORDERED: LIDOCAINE 1% INJ 10MG/ML (20 ML MDV) ONE (14:12)
[2019-02-09] MEDS ORDERED: MIDAZOLAM 2 MG/2 ML VIAL ONE (14:12)
[2019-02-09] MEDS ORDERED: PROPOFOL 10 MG/ML 20 ML VIAL IV ONE (14:12)
[2019-02-09] MEDS ORDERED: fentaNYL (PF) 50 MCG/ML 2 ML AMP ONE (14:12)
[2019-02-09] MEDS ORDERED: IV FLUID CONTINUATION 300 ML IV ONE (14:15)
--- NOTE | 2019-02-09 14:37 | P.PCN ---
Date of Procedure: 02/09/19 Description of Procedure: BRIEF HISTORY: 58-year-old male with multiple medical comorbidities including diabetes mellitus, hypertension, hyperlipidemia, history of osteomyelitis and peripheral vascular disease who presented to the hospital with complaints of 1 month of increasing scrotal edema. The patient is currently being seen and managed for acute exacerbation of his distant heart failure as well as scrotal cellulitis on antibiotic therapy. The patient reported a 30 minute episode of right upper quadrant pain yesterday he reports that the pain was sharp and without radiation. He denies any prior episodes of similar pain. No history of GERD or dysphagia. He does report intermittent use of Aleve, but states that this is infrequent. The pain resolved on its own and he is had no further episodes. Evaluation with computed tomography scan of the abdomen was significant for wall thickening of the fundus of the stomach possibly secondary to under distention with other findings noted. The patient has had prior colonoscopy in 08/16/2016 which was significant for internal hemorrhoids and polypectomy but has not had EGD in the past. Laboratory evaluation is significant for hemoglobin 9.2 stable from 9.3 with MCV 83.1, WBC 11.6, INR 1.4, total bilirubin 0.6, upland p hosphatase 154, AST 21, ALTs 60. PROCEDURE PERFORMED: Esophagogastroduodenoscopy with biopsy. PREOPERATIVE DIAGNOSIS: Epigastric abdominal pain, abnormal computed tomography scan abdomen. ESTIMATED BLOOD LOSS: Minimal. IV sedation per anesthesia. PROCEDURE: After informed consent was obtained, the patient was brought into the endoscopy unit. IV sedation was administered by Anesthesia under continuous monitoring. Initially the Olympus GIF-190 video endoscope was inserted into the mouth. Esophagus intubated without any difficulty. It was gradually advanced into the stomach and duodenum and carefully examined. Moderate duodenitis in the duodenal bulb with a large nonbleeding ulcer in the duodenal sweep without any high risk stigmata for rebleeding which was biopsied. Second portion of the duodenum appeared normal. The scope at this time was withdrawn to the stomach, adequately insufflated with air, and upon careful examination, mucosa of the antrum, body, cardia and the fundus appeared grossly normal, however there was erythema and a few superficial erosions in the antrum and body suggestive of moderate gastritis which was biopsied. The scope was then withdrawn into the esophagus. The GE junction was located at 43 cm from the incisors. The esophagus appeared normal. There were no erosions or ulcerations seen and the patient tolerated the procedure well. IMPRESSION: 1. Nonbleeding ulcer in the duodenal sweep, biopsied. Duodenitis. 2. Moderate gastritis in antrum and body, biopsied. RECOMMENDATIONS: The findings of this examination were discussed with the patient. Okay for full liquid diet tonight, with plan to advance to mechanical chopped tomorrow if hemoglobin stable and no signs or symptoms of bleeding. Await pathology from biopsies. Patient should be on twice daily Protonix therapy. Avoid NSAID use.
[2019-02-09] MEDS: ASPIRIN 81 MG PO SCH (15:34)
[2019-02-09] MEDS: CALCIUM CARBONATE 500 MG CHEWABLE PO PRN (15:34)
--- NOTE | 2019-02-09 16:18 | P.PN ---
Subjective Progress Note Date: 02/09/19 Is a 58-year-old gentleman who presented to the hospital with worsening peripheral edema and shortness of breath. He was seen and examined today lying flat in bed, breathing is much improved, he continues to have a significant amount of peripheral edema and is quite sleepy overall. His parents are at bedside. He continues to have significant edema in his scrotal area however it is improving from admission overall. He continues to put out excellent urine output, his weight is overall down 2 kg today. Blood cell count 12.3, hemoglobin 8.9, platelet count 449. Sodium 135, potassium 3.1, BUN 59 and creatinine and 0.9. Mag level I.8. 02/03/2019 Patient was seen and examined this morning, his weight is down 10 pounds today, his creatinine is 1.8, continues overall to diurese well. Sodium 136, potassium 3.1, BUN 58 and creatinine 1.8. White blood cell count 13.2, hemoglobin 9.3 and a platelet count of 424. 02/04/2019 Patient seen and examined today, continues to have significant weight loss. Hemodynamically stable. Continues to be on the IV Lasix drip. 02/05/2019 Patient was seen and examined this morning, improving significantly overall. He is sitting up in the chair today, his weight is down 3 kg his creatinine is 1.8. IV Lasix drip has been discontinued and the patient is currently on IV Lasix 60 mg twice a day. Blood pressure 116/60 with a heart rate of 70, 92% on room air. 02/06/2019 Patient seen and examined this morning, overall doing well. Had an episode a CAT scan of the brain was performed which was negative. Blood pressure this morning 100/60 with a heart rate in the 70s, 94% on room air. White blood cell count 11.3, hemoglobin 9.2, 419. Sodium 136, potassium 3.2, BUN 60 and creatinine 1.9. Magnesium 2.0. Weight is down 2 kg. Patient continues to be on Lasix 60 mg IV twice a day. 02/09/2019 Patient was seen and examined today, denies any chest pain, breathing is stable. Edema has improved significantly since admission and he is currently maintained on oral diuretics. He continues to trend down. Blood pressure 108/60 with a heart rate of 78. Sodium 136, potassium 3.3, BUN 50 and creatinine 1.8. Objective - Vital Signs Vital signs: Vital Signs Temp 98.3 F 02/09/19 15:10 Pulse 79 02/09/19 15:33 Resp 16 02/09/19 16:00 BP 108/67 02/09/19 15:33 Pulse Ox 99 02/09/19 15:10 Intake & Output 02/08/19 02/09/19 02/09/19 18:59 06:59 18:59 Intake Total 1281 570 200 Output Total 1500 325 Balance -219 570 -125 Weight 108.5 kg Intake: IV 15 40 200 Invasive Line 5 15 30 Invasive Line 6 10 Intake, IV Titration 50 Amount cefTRIAXone 2 gm In 50 Sodium Chloride 0.9% 50 ml @ 100 mls/hr IVPB Q24HR [facility] Rx#:[id number] Oral 1266 480 0 Output: Urine 1500 325 Other: Voiding Method Indwelling Catheter Urinal Urinal # Voids 2 - Exam GENERAL EXAM: Pleasant 58-year-old gentleman. Sleepy , comfortable in no apparent distress. On 3 L nasal cannula. HEAD: Normocephalic. EYES: Normal reaction of pupils, equal size. NOSE: Clear with pink turbinates. THROAT: No erythema or exudates. NECK: No masses, no JVD. CHEST: No chest wall deformity. LUNGS: Reveal improvement in air entry to bilateral bases. CVS: S1 and S2 normal with no audible murmur, regular rhythm. ABDOMEN: Obese. No hepatosplenomegaly, normal bowel sounds, no guarding or rigidity., Scrotal edema improving. SPINE: No scoliosis or deformity SKIN: No rashes CENTRAL NERVOUS SYSTEM: No focal deficits, tone is normal in all 4 extremities. EXTREMITIES: There is trace peripheral edema. Patient has a dressing to the left great toe which had been amputated, blackened area to the right great toe. - Labs CBC & Chem 7: 02/09/19 05:44 02/09/19 05:44 Labs: Abnormal Lab Results - Last 24 Hours (Table) 02/07/19 02/08/19 02/08/19 Range/Units 16:11 17:02 21:20 WBC (3.8-10.6) k/uL RBC (4.30-5.90) m/uL Hgb (13.0-17.5) gm/dL Hct (39.0-53.0) % MCHC (31.0-37.0) g/dL RDW (11.5-15.5) % Sodium (137-145) mmol/L Potassium (3.5-5.1) mmol/L Chloride (98-107) mmol/L Carbon Dioxide (22-30) mmol/L BUN (9-20) mg/dL Creatinine (0.66-1.25) mg/dL POC Glucose (mg/dL) 206 H 124 H (75-99) mg/dL Calcium (8.4-10.2) mg/dL Iron 27 L (65-175) ug/dL Iron Saturation 9.18 L (15.00-50.00) 02/09/19 02/09/19 02/09/19 Range/Units 05:44 05:44 11:44 WBC 12.0 H (3.8-10.6) k/uL RBC 3.52 L (4.30-5.90) m/uL Hgb 9.1 L (13.0-17.5) gm/dL Hct 30.6 L (39.0-53.0) % MCHC 29.7 L (31.0-37.0) g/dL RDW 16.7 H (11.5-15.5) % Sodium 136 L (137-145) mmol/L Potassium 3.3 L (3.5-5.1) mmol/L Chloride 89 L (98-107) mmol/L Carbon Dioxide 40 H (22-30) mmol/L BUN 50 H (9-20) mg/dL Creatinine 1.87 H (0.66-1.25) mg/dL POC Glucose (mg/dL) 113 H (75-99) mg/dL Calcium 8.3 L (8.4-10.2) mg/dL Iron (65-175) ug/dL Iron Saturation (15.00-50.00) Microbiology - Last 24 Hours (Table) 02/09/19 08:46 Urine Culture - Preliminary Urine,Voided 02/01/19 12:13 Catheter Tip Culture - Final Catheter Tip Assessment and Plan Plan: Assessment and plan #1 diastolic congestive heart failure acute on chronic #2 Acute on chronic renal failure #3 acute on chronic renal failure #4 hypertension #5 hyperlipidemia #6 morbid obesity #7 diabetes #8 left toe gangrene status post amputation in December of this year #9 anemia Plan From cardiology's perspective, Lasix 60 mg one tablet by mouth daily along with metolazone. Replace potassium. DNP note has been reviewed, I agree with a documented findings and plan of care. Patient was seen and examined.
[2019-02-09 17:06] LABS: Glucose,Whole Blood 111 mg/dL (75-99)
[2019-02-09] MEDS: INSULIN DETEMIR (LEVEMIR) 100 UNIT/ML SYR SQ SCH (17:06)
[2019-02-09] MEDS: PANTOPRAZOLE 40 MG TABLET PO SCH (17:09)
[2019-02-09] MEDS: METOLAZONE 5 MG TAB PO SCH (18:38)
[2019-02-09 21:26] LABS: Glucose,Whole Blood 160 mg/dL (75-99)
[2019-02-09] MEDS: ATORVASTATIN 80 MG TAB PO SCH (21:30)
[2019-02-09] MEDS: lamoTRIgine 100 MG TAB PO SCH (21:30)
--- NOTE | 2019-02-10 00:10 | P.PN ---
Subjective Progress Note Date: 02/10/19 58-year-old male with multiple medical troubles including diabetes peripheral vascular disease and is a relates to difficulties with mental illness in had a suicide attempt with injury to his left arm.The patient underwent surgical repair to the left wrist lacerations. He has been released from the psychiatric unit with improvement of his condition after medication changes. He overspending having increasing amounts of edema with progressive scrotal and lower extremity edema. He was in the emergency center last week with evidence of the scrotal edema. No evidence of any hydrocele or strangulation was noted was referred back to his primary care physician for his ongoing and worsening edema. The patient became extremely uncomfortable was having difficulties with urination due to the very swollen scrotum and pressure on the penis. Testicles he has now been admitted for acute on chronic renal failure, extensive edema including extensive scrotal edema. The patient has had worsening of the lower extremity edema and has developed blistering to the right lower extremity and has ongoing ulceration to the prior amputation site to the left great toe. With these issues the consult has been requested. The patient is seen with the vascular surgeon. The patient relates he is very uncomfortable because of the extensive scrotal swelling which fortunately there's been some improvement because of [place] catheter was placed. Patient does not believe he has had high- grade fever chills or rigors but feels very poorly. 01/30/2019 patient is feeling slightly better today. He. His parents are present and have many questions that are answered to the best of this provider's ability.only pain and discomfort is from the large scrotal swelling which has improved slightly today 02/01/2019 reveals the patient be feeling somewhat better. Pain is improved. Shortness swelling is improved. However not remarkably so. But the anasarca has improved from the abdominal wall onto his legs with good urinary output with the Lasix intravenous infusion and metolazone. Is being followed by nephrology. 02/09/2019 the patient has had further improvement. Endoscopy showed evidence of gastric ulcer. Receiving treatment for that now. His ulcerations are evaluated today. Overall is feeling better. Objective - Vital Signs Vital signs: Vital Signs Temp 97.5 F L 02/09/19 20:00 Pulse 83 02/09/19 20:00 Resp 17 02/09/19 20:00 BP 109/71 02/09/19 20:00 Pulse Ox 93 L 02/09/19 20:00 Intake & Output 02/09/19 02/09/19 02/10/19 06:59 18:59 06:59 Intake Total 570 1250 Output Total 325 Balance 570 925 Weight 108.5 kg Intake: IV 40 200 Invasive Line 5 30 Invasive Line 6 10 Intake, IV Titration 50 Amount cefTRIAXone 2 gm In 50 Sodium Chloride 0.9% 50 ml @ 100 mls/hr IVPB Q24HR [facility] Rx#:[id number] Oral 480 1050 Output: Urine 325 Other: Voiding Method Urinal Urinal Urinal # Voids 2 1 - Exam Obese 58-year-old male who is a less anxious and less short of breath is mildly sedated HEENT: Anicteric conjunctiva are pink and moist nasal mucosa grossly intact without significant lesions, there is no thrush. Neck: The neck is supple without significant lymphadenopathy or thyromegaly. Lungs: Symmetrical air entry is noted basilar crackles are noted expiratory wheezing is heard no bronchial sounds dullness or egophony Heart: Irregular with a positive S4 no murmur click or rub PMI is nondisplaced Abdomen: Obese Positive bowel sounds soft and nontender without palpable masses or organomegaly. There was no guarding or rebound. Extremities: The upper extremities have no open lesions IV site is intact. The left upper extremity reveals evidence of the injury site from the prior self- inflicted injury. It is a T-shaped injury. The entire stem aspect of the injury has healed, the horizontal injury is much improved and responding well to the therahoney. The amputation site is also showing improvement and doing well with the therahoney. With edema right foot is developed multiple blisters which is now completely resolved the blisters are healed no open ulcers are seen Neuro: Awake alert oriented to person place and time. There are no acute new gross focal sensory motor deficits. - Labs CBC & Chem 7: 02/09/19 05:44 02/09/19 22:20 Labs: Abnormal Lab Results - Last 24 Hours (Table) 02/07/19 02/09/19 02/09/19 Range/Units 16:11 05:44 05:44 WBC 12.0 H (3.8-10.6) k/uL RBC 3.52 L (4.30-5.90) m/uL Hgb 9.1 L (13.0-17.5) gm/dL Hct 30.6 L (39.0-53.0) % MCHC 29.7 L (31.0-37.0) g/dL RDW 16.7 H (11.5-15.5) % Sodium 136 L (137-145) mmol/L Potassium 3.3 L (3.5-5.1) mmol/L Chloride 89 L (98-107) mmol/L Carbon Dioxide 40 H (22-30) mmol/L BUN 50 H (9-20) mg/dL Creatinine 1.87 H (0.66-1.25) mg/dL POC Glucose (mg/dL) (75-99) mg/dL Calcium 8.3 L (8.4-10.2) mg/dL Iron 27 L (65-175) ug/dL Iron Saturation 9.18 L (15.00-50.00) 02/09/19 02/09/19 02/09/19 Range/Units 11:44 17:00 21:24 WBC (3.8-10.6) k/uL RBC (4.30-5.90) m/uL Hgb (13.0-17.5) gm/dL Hct (39.0-53.0) % MCHC (31.0-37.0) g/dL RDW (11.5-15.5) % Sodium (137-145) mmol/L Potassium (3.5-5.1) mmol/L Chloride (98-107) mmol/L Carbon Dioxide (22-30) mmol/L BUN (9-20) mg/dL Creatinine (0.66-1.25) mg/dL POC Glucose (mg/dL) 113 H 111 H 160 H (75-99) mg/dL Calcium (8.4-10.2) mg/dL Iron (65-175) ug/dL Iron Saturation (15.00-50.00) Microbiology - Last 24 Hours (Table) 02/09/19 08:46 Urine Culture - Preliminary Urine,Voided 02/01/19 12:13 Catheter Tip Culture - Final Catheter Tip Laboratory Results WBC 12.0 k/uL (3.8-10.6) H 02/09/19 05:44 RBC 3.52 m/uL (4.30-5.90) L 02/09/19 05:44 Hgb 9.1 gm/dL (13.0-17.5) L 02/09/19 05:44 Hct 30.6 % (39.0-53.0) L 02/09/19 05:44 MCV 87.0 fL (80.0-100.0) 02/09/19 05:44 MCH 25.8 pg (25.0-35.0) 02/09/19 05:44 MCHC 29.7 g/dL (31.0-37.0) L 02/09/19 05:44 RDW 16.7 % (11.5-15.5) H 02/09/19 05:44 Plt Count 396 k/uL (150-450) 02/09/19 05:44 Neutrophils % 77 % 02/07/19 05:34 Lymphocytes % 11 % 02/07/19 05:34 Monocytes % 8 % 02/07/19 05:34 Eosinophils % 3 % 02/07/19 05:34 Basophils % 1 % 02/07/19 05:34 Neutrophils # 7.1 k/uL (1.3-7.7) 02/07/19 05:34 Lymphocytes # 1.0 k/uL (1.0-4.8) 02/07/19 05:34 Monocytes # 0.7 k/uL (0-1.0) 02/07/19 05:34 Eosinophils # 0.3 k/uL (0-0.7) 02/07/19 05:34 Basophils # 0.0 k/uL (0-0.2) 02/07/19 05:34 Hypochromasia Marked 02/09/19 05:44 Poikilocytosis Slight 02/09/19 05:44 Anisocytosis Slight 02/09/19 05:44 PT 14.5 sec (9.0-12.0) H 02/02/19 06:17 INR 1.4 (<1.2) H 02/02/19 06:17 APTT 27.6 sec (22.0-30.0) 01/29/19 08:48 Sodium 136 mmol/L (137-145) L 02/09/19 05:44 Potassium 3.6 mmol/L (3.5-5.1) 02/09/19 22:20 Chloride 89 mmol/L (98-107) L 02/09/19 05:44 Carbon Dioxide 40 mmol/L (22-30) H 02/09/19 05:44 Anion Gap 7 mmol/L 02/09/19 05:44 BUN 50 mg/dL (9-20) H 02/09/19 05:44 Creatinine 1.87 mg/dL (0.66-1.25) H 02/09/19 05:44 Est GFR (CKD-EPI)AfAm 45 (>60 ml/min/1.73 sqM) 02/09/19 05:44 Est GFR (CKD-EPI)NonAf 39 (>60 ml/min/1.73 sqM) 02/09/19 05:44 Glucose 80 mg/dL (74-99) 02/09/19 05:44 POC Glucose (mg/dL) 160 mg/dL (75-99) H 02/09/19 21:24 POC Glu [employer] Nahomi Jennings 02/09/19 21:[address] Glu mg/dL 183 01/29/19 08:48 Hemoglobin A1c 8.0 % (4.0-6.0) H 01/29/19 08:48 Plasma Lactic Acid [place] 1.1 mmol/L (0.7-2.0) 01/29/19 23:46 Calcium 8.3 mg/dL (8.4-10.2) L 02/09/19 05:44 Magnesium 2.1 mg/dL (1.6-2.3) 02/07/19 05:34 Iron 27 ug/dL (65-175) L 02/07/19 16:11 TIBC 294 ug/dL (228-460) 02/07/19 16:11 Iron Saturation 9.18 (15.00-50.00) L 02/07/19 16:11 Ferritin 67.7 ng/mL (22.0-322.0) 01/29/19 14:35 Total Bilirubin 0.6 mg/dL (0.2-1.3) 01/29/19 08:48 AST 21 U/L (17-59) 01/29/19 08:48 ALT 60 U/L (21-72) 01/29/19 08:48 Alkaline Phosphatase 154 U/L (38-126) H 01/29/19 08:48 Ammonia <9 umol/L (<30) 02/05/19 17:32 Troponin I 0.054 ng/mL (0.000-0.034) H* 01/29/19 20:28 NT-Pro-B Natriuret Pep 5210 pg/mL 01/29/19 08:48 Total Protein 6.0 g/dL (6.3-8.2) L 01/29/19 08:48 Albumin 2.9 g/dL (3.5-5.0) L 01/29/19 08:48 Lipase 119 U/L (23-300) 02/06/19 05:42 Urine Color Yellow 02/08/19 12:10 Urine Appearance Clear (Clear) 02/08/19 12:10 Urine pH 7.5 (5.0-8.0) 02/08/19 12:10 Ur Specific [place] 1.012 (1.001-1.035) 02/08/19 12:10 Urine Protein 1+ (Negative) H 02/08/19 12:10 Urine Glucose (UA) Negative (Negative) 02/08/19 12:10 Urine Ketones Negative (Negative) 02/08/19 12:10 Urine Blood Moderate (Negative) H 02/08/19 12:10 Urine Nitrite Negative (Negative) 02/08/19 12:10 Urine Bilirubin Negative (Negative) 02/08/19 12:10 Urine Urobilinogen <2.0 mg/dL (<2.0) 02/08/19 12:10 Ur Leukocyte Esterase Large (Negative) H 02/08/19 12:10 Urine RBC >182 /hpf (0-5) H 02/08/19 12:10 Urine WBC 57 /hpf (0-5) H 02/08/19 12:10 Ur Squamous Epith Cells 1 /hpf (0-4) 02/05/19 19:50 Hyaline Casts 7 /lpf (0-2) H 02/05/19 19:50 Urine Mucus Rare /hpf (None) H 02/08/19 12:10 Urine Yeast (Budding) Few /hpf (None) H 02/08/19 12:10 Microbiology 02/09/19 08:46 Urine,Voided Urine Culture - Preliminary 02/01/19 12:13 Catheter Tip Catheter Tip Culture - Final 02/01/19 12:13 Catheter Site Gram Stain - Final 02/01/19 12:13 Catheter Site Wound Culture - Final 01/29/19 17:30 Foot - Left Gram Stain - Final 01/29/19 17:30 Foot - Left Wound Culture - Final Enterobacter hormaechei Assessment and Plan (1) CHF (congestive heart failure) Current Visit: Yes Status: Acute Code(s): I50.9 - HEART FAILURE, UNSPECIFIED SNOMED Code(s): 24490078 (2) SOB (shortness of breath) Current Visit: Yes Status: Acute Code(s): R06.02 - SHORTNESS OF BREATH SNOMED Code(s): 431327238 (3) Scrotal edema Current Visit: No Status: Acute Code(s): N50.89 - OTHER SPECIFIED DISORDERS OF THE MALE GENITAL ORGANS SNOMED Code(s): 69098180 (4) Laceration of left wrist Current Visit: No Status: Acute Code(s): S61.512A - LACERATION WITHOUT FOREIGN BODY OF LEFT WRIST, INIT ENCNTR SNOMED Code(s): 17457468044831120 (5) Foot ulcer due to secondary DM Narrative/Plan: 58-year-old male presents to Hospital feeling very poorly. He said extensive edema that has been worsening over many days. His developed extensive scrotal edema to the with urination and lower extremity edema is not resulting in blisters on the right foot with some ulceration. The patient has not been receiving care to the left great toe amputation site which has evidence of some eschar. The patient is been seen by the vascular surgeon no plans for surgical intervention at this time. Therahoney to the left great toe as planned. Absorptive dressing to the right foot and rapid place for now. Cultures obtained from the blister fluid. Antibiotic therapy is initiate with cefepime to give us coverage for his prior baseline pathogens including MSSA. He does not have a history of MRSA. To the scrotum the zinc product can be applied to prevent any further discomforts would also help with some of the irritation is having from the extensive scrotal edema. Therahoney product will also be applied to the left wrist laceration site that is evidence slough. We'll expect some improvement with alteration of the wound care to the wrist 01/30/2019 the patient is feeling slightly better today, less anxious and resting well. Pain is improved but still has a significant discomfort to the scrotum that is still quite swollen but is less tight than yesterday, there is no open ulcerations of the scrotum. The left wrist left foot and right foot ulcerations are being treated and are slightly improved today. Wound cultures pending gram-negative bacilli is seen. 02/01/2019 patient is improvement overall. Wound culture is noted Enterobacter is found antibiotic therapy is transitioned to Rocephin. Local wound care continues to the foot wounds. To the scrotum continue elevation and zinc cream is applied to the entire scrotum to prevent further difficulty. The wrist ulcers treated with a therahoney and is improving also 02/09/2019 the patient continues to improve. The edema from the waist distal is now much improved. Scrotal edema is improved. Self-inflicted the left wrist is much improved. Amputation site to the left great toe is improved. Continue local wound care to these areas. We'll attempt to transition to oral antibiotic therapy as he has further improvement and plans for discharge continue. Current Visit: Yes Status: Acute Code(s): E13.621 - OTHER SPECIFIED DIABETES MELLITUS WITH FOOT ULCER; L97.509 - NON-PRESSURE CHRONIC ULCER OTH PRT UNSP FOOT W UNSP SEVERITY SNOMED Code(s): 5264782
[2019-02-10] MEDS: INSULIN ASPART (NovoLOG) 100 UNIT/ML VIAL SQ SCH ×4 (06:59→20:16)
[2019-02-10 07:08] LABS: Glucose,Whole Blood 62 mg/dL (75-99)
[2019-02-10 07:22] LABS: Glucose,Whole Blood 77 mg/dL (75-99)
[2019-02-10] MEDS: METOLAZONE 5 MG TAB PO SCH (09:13)
[2019-02-10] MEDS: ALPRAZolam 1 MG TAB PO SCH (09:14)
[2019-02-10] MEDS: PANTOPRAZOLE 40 MG TABLET PO SCH ×2 (09:14→17:21)
[2019-02-10] MEDS: hydrALAZINE HCL 25 MG TAB PO SCH (09:14)
[2019-02-10] MEDS: SERTRALINE 50 MG TAB PO SCH (09:14)
[2019-02-10] MEDS: ASPIRIN 81 MG PO SCH (09:14)
[2019-02-10] MEDS: METOPROLOL TARTRATE 25 MG TAB PO SCH ×2 (09:14→20:16)
[2019-02-10] MEDS: HEPARIN SODIUM,PORCINE 5,000 UNIT/ML 1 ML VIAL SQ SCH ×2 (09:14→20:16)
[2019-02-10] MEDS: INSULIN DETEMIR (LEVEMIR) 100 UNIT/ML SYR SQ SCH (09:15)
[2019-02-10] MEDS: FUROSEMIDE 20 MG TAB PO SCH ×2 (09:15→15:10)
[2019-02-10 09:47] LABS: Calcium 8.2 mg/dL (8.4-10.2); Potassium 3.5 mmol/L (3.5-5.1)
[2019-02-10] MEDS ORDERED: POTASSIUM CHLORIDE ER 20 MEQ TAB.ER PO STA (11:48)
[2019-02-10 12:03] LABS: Glucose,Whole Blood 145 mg/dL (75-99)
--- NOTE | 2019-02-10 12:12 | P.PN ---
Subjective Progress Note Date: 02/10/19 Principal diagnosis: Epigastric pain Status post EGD nonbleeding duodenal ulcer biopsies pending. Passing nonbloody vomitus. Tolerating diet. Denies abdominal pain. CBC not obtained today yesterday was 9.1. Objective - Vital Signs Vital signs: Vital Signs Temp 98.7 F 02/10/19 07:11 Pulse 70 02/10/19 08:00 Resp 16 02/10/19 08:00 BP 98/63 02/10/19 07:11 Pulse Ox 95 02/10/19 07:11 Intake & Output 02/09/19 02/10/19 02/10/19 18:59 06:59 18:59 Intake Total 1250 850 Output Total 325 Balance 925 850 Weight 110.7 kg Intake: IV 200 Oral 1050 850 Output: Urine 325 Other: Voiding Method Urinal Urinal Urinal # Voids 1 1 - Exam General appearance: The patient is alert, oriented, in no acute distress. HET: Head is normocephalic and atraumatic. Pupils are equal and reactive. Oropharynx is clear without lesions. Neck: Supple without lymphadenopathy. Trachea midline. Heart: S1 S2. Regular rate and rhythm. Lungs: No crackles or wheezes are heard. Abdomen: Soft, nontender, nondistended with bowel sounds. No peritoneal signs. No palpable organomegaly or masses. Neurological: No focal deficits. Strength and sensation are grossly intact. - Labs CBC & Chem 7: 02/09/19 05:44 02/10/19 08:02 Labs: Abnormal Lab Results - Last 24 Hours (Table) 02/09/19 02/09/19 02/10/19 Range/Units 17:00 21:24 06:57 Chloride (98-107) mmol/L Carbon Dioxide (22-30) mmol/L BUN (9-20) mg/dL Creatinine (0.66-1.25) mg/dL Glucose (74-99) mg/dL POC Glucose (mg/dL) 111 H 160 H 62 L (75-99) mg/dL Calcium (8.4-10.2) mg/dL 02/10/19 02/10/19 Range/Units 08:02 11:53 Chloride 90 L (98-107) mmol/L Carbon Dioxide 39 H (22-30) mmol/L BUN 50 H (9-20) mg/dL Creatinine 1.90 H (0.66-1.25) mg/dL Glucose 61 L (74-99) mg/dL POC Glucose (mg/dL) 145 H (75-99) mg/dL Calcium 8.2 L (8.4-10.2) mg/dL Microbiology - Last 24 Hours (Table) 02/09/19 08:46 Urine Culture - Final Urine,Voided 02/01/19 12:13 Catheter Tip Culture - Final Catheter Tip Assessment and Plan (1) Duodenal ulcer Current Visit: Yes Status: Acute Code(s): K26.9 - DUODENAL ULCER, UNSP ACUTE OR CHRONIC, W/O HEMOR OR PERF SNOMED Code(s): 98500522 (2) Abdominal pain Current Visit: Yes Status: Acute Code(s): R10.9 - UNSPECIFIED ABDOMINAL PAIN SNOMED Code(s): 46454796 Plan: 1. No NSAIDs. Protonix 40 mg twice daily. CBC monitoring. Assessment and plan a care discussed with Dr. Arceo
--- NOTE | 2019-02-10 12:14 | P.PN ---
Subjective Patient is seen in follow-up for acute kidney injury. Renal function is stable. Creatinine 1.9 today. Edema has improved significantly since admission. He is maintained on oral diuretics. He is nonoliguric. Denies chest pain or shortness of breath. Vital signs are stable. General: The patient appeared well nourished and normally developed. HEENT: Head exam is unremarkable. Neck is without jugular venous distension. LUNGS: Breath sounds decreased. HEART: Rate and Rhythm are regular. First and second heart sounds normal. No murmurs, rubs or gallops. ABDOMEN: Abdominal exam reveals normal bowel sounds. Non-tender and non- distended. EXTREMITITES: 1+ edema. Objective - Vital Signs Vital signs: Vital Signs Temp 98.7 F 02/10/19 07:11 Pulse 70 02/10/19 08:00 Resp 16 02/10/19 08:00 BP 98/63 02/10/19 07:11 Pulse Ox 95 02/10/19 07:11 Intake & Output 02/09/19 02/10/19 02/10/19 18:59 06:59 18:59 Intake Total 1250 850 Output Total 325 Balance 925 850 Weight 110.7 kg Intake: IV 200 Oral 1050 850 Output: Urine 325 Other: Voiding Method Urinal Urinal Urinal # Voids 1 1 - Labs CBC & Chem 7: 02/09/19 05:44 02/10/19 08:02 Labs: Abnormal Lab Results - Last 24 Hours (Table) 02/09/19 02/09/19 02/10/19 Range/Units 17:00 21:24 06:57 Chloride (98-107) mmol/L Carbon Dioxide (22-30) mmol/L BUN (9-20) mg/dL Creatinine (0.66-1.25) mg/dL Glucose (74-99) mg/dL POC Glucose (mg/dL) 111 H 160 H 62 L (75-99) mg/dL Calcium (8.4-10.2) mg/dL 02/10/19 02/10/19 Range/Units 08:02 11:53 Chloride 90 L (98-107) mmol/L Carbon Dioxide 39 H (22-30) mmol/L BUN 50 H (9-20) mg/dL Creatinine 1.90 H (0.66-1.25) mg/dL Glucose 61 L (74-99) mg/dL POC Glucose (mg/dL) 145 H (75-99) mg/dL Calcium 8.2 L (8.4-10.2) mg/dL Microbiology - Last 24 Hours (Table) 02/09/19 08:46 Urine Culture - Final Urine,Voided 02/01/19 12:13 Catheter Tip Culture - Final Catheter Tip Assessment and Plan Plan: Assessment: 1. Acute kidney injury mostly prerenal secondary to cardiorenal syndrome. Creatinine 1.9 today. Baseline creatinine near 1. UA is quite benign. Ultrasound from last month revealed no evidence of hydronephrosis. 2. Dyspnea secondary to volume overload. Improved. 3. Insulin-dependent diabetes mellitus. 4. Anemia. Severe iron deficiency noted. Status post 3 doses of IV iron. 5. Benign hypertension. Blood pressures on the low side. 6. 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 7. Hypomagnesemia secondary to diuresis. Improved. 8. Diastolic CHF. 9. Hypokalemia secondary to diuresis. 10. Metabolic alkalosis secondary to diuresis. Stable. 11. Abdominal discomfort with fundal thickening. GI following. Status post EGD on February 09 which revealed nonbleeding duodenal ulcer and gastritis. Plan: Maintain Lasix 60 mg orally twice daily. Continue metolazone 5 mg daily. Low-salt diet and 1.5 L fluid restriction. Daily weights. Avoid nephrotoxins. Replace potassium. 60 mEq today. Add daily potassium supplementation. Discontinue hydralazine as blood pressure is low. Repeat electrolytes in the morning.
[2019-02-10 16:49] LABS: Glucose,Whole Blood 117 mg/dL (75-99)
[2019-02-10 20:02] LABS: Glucose,Whole Blood 157 mg/dL (75-99)
[2019-02-10] MEDS: ATORVASTATIN 80 MG TAB PO SCH (20:16)
[2019-02-10] MEDS: lamoTRIgine 100 MG TAB PO SCH (20:16)
--- NOTE | 2019-02-11 00:09 | P.PN ---
Subjective Progress Note Date: 02/09/19 Principal diagnosis: Acute CHF exacerbation Acute on chronic kidney disease 58-year-old gentleman admitted for CHF exacerbation and acute renal failure. He was started on Lasix drip initially. Cardiology and nephrology are following the patient. His Lasix drip was discontinued and was started on Lasix 60 mg twice a day IV push. Infectious disease also consulted for cellulitis in the scrotal area. 02/09/2019 Patient denied any complaints of chest pain or shortness of breath. Lower extremity swelling and scrotal swelling is improving. Currently on oral Lasix. Patient had EGD done today showed mild gastritis and duodenitis with small duodenal ulcer. Currently on PPI Left foot wound cultures Enterobacter species. Currently on antibiotics in the form of ceftriaxone. Creatinine level improved to 1.87 today. Nephrology is on board. No nausea vomiting or abdominal pain or diarrhea. All other review of systems negative except the above. Current medications reviewed. Objective - Vital Signs Vital signs: Vital Signs Temp 97.5 F L 02/09/19 20:00 Pulse 83 02/09/19 20:00 Resp 17 02/09/19 20:00 BP 109/71 02/09/19 20:00 Pulse Ox 93 L 02/09/19 20:00 Intake & Output 02/09/19 02/09/19 02/10/19 06:59 18:59 06:59 Intake Total 570 1250 Output Total 325 Balance 570 925 Weight 108.5 kg Intake: IV 40 200 Invasive Line 5 30 Invasive Line 6 10 Intake, IV Titration 50 Amount cefTRIAXone 2 gm In 50 Sodium Chloride 0.9% 50 ml @ 100 mls/hr IVPB Q24HR REPLACED BY [facility] Rx#:[id number] Oral 480 1050 Output: Urine 325 Other: Voiding Method Urinal Urinal Urinal # Voids 2 1 - Exam On exam, alert and oriented x3. HEENT: Conjunctivae normal. eyes normal. NECK: No JVD. No thyroid enlargement. No LNs CARDIOVASCULAR: S1-S2 positive RESPIRATION: Breath sounds diminished in the bases. No rhonchi or crackles. No bronchial breathing. ABDOMEN: Soft, nontender today epigastric area. No guarding. no masses palpable. No ascites, No hepatosplenomegaly.Bowel sounds heard. swelling of the scrotum appreciated. LEGS: He is having +2 pitting edema. gangrene on his greattoe, left foot wrapped NERVOUS SYSTEM: Cranial N 2-12 grossly normal. Moves all 4 limbs. No focal deficits. No sensory deficit. No signs of cerebellar dysfucntion. Skin: no ulcer no rash . He has laceration to his left wrist - Labs CBC & Chem 7: 02/09/19 05:44 02/10/19 08:02 Labs: Abnormal Lab Results - Last 24 Hours (Table) 02/07/19 02/09/19 02/09/19 Range/Units 16:11 05:44 05:44 WBC 12.0 H (3.8-10.6) k/uL RBC 3.52 L (4.30-5.90) m/uL Hgb 9.1 L (13.0-17.5) gm/dL Hct 30.6 L (39.0-53.0) % MCHC 29.7 L (31.0-37.0) g/dL RDW 16.7 H (11.5-15.5) % Sodium 136 L (137-145) mmol/L Potassium 3.3 L (3.5-5.1) mmol/L Chloride 89 L (98-107) mmol/L Carbon Dioxide 40 H (22-30) mmol/L BUN 50 H (9-20) mg/dL Creatinine 1.87 H (0.66-1.25) mg/dL POC Glucose (mg/dL) (75-99) mg/dL Calcium 8.3 L (8.4-10.2) mg/dL Iron 27 L (65-175) ug/dL Iron Saturation 9.18 L (15.00-50.00) 02/09/19 02/09/19 02/09/19 Range/Units 11:44 17:00 21:24 WBC (3.8-10.6) k/uL RBC (4.30-5.90) m/uL Hgb (13.0-17.5) gm/dL Hct (39.0-53.0) % MCHC (31.0-37.0) g/dL RDW (11.5-15.5) % Sodium (137-145) mmol/L Potassium (3.5-5.1) mmol/L Chloride (98-107) mmol/L Carbon Dioxide (22-30) mmol/L BUN (9-20) mg/dL Creatinine (0.66-1.25) mg/dL POC Glucose (mg/dL) 113 H 111 H 160 H (75-99) mg/dL Calcium (8.4-10.2) mg/dL Iron (65-175) ug/dL Iron Saturation (15.00-50.00) Microbiology - Last 24 Hours (Table) 02/09/19 08:46 Urine Culture - Preliminary Urine,Voided 02/01/19 12:13 Catheter Tip Culture - Final Catheter Tip Assessment and Plan Assessment: - Acute on chronic CHF with diastolic dysfunction - Duodenal ulcer. Abdominal pain status post EGD showed gastritis and duodenitis and duodenal ulcer. - AK I due to prerenal secondary to cardiorenal syndrome - Cardiorenal syndrome - Bilateral foot infection with surrounding cellulitis - Scrotal edema - Left toe gangrene status post amputation December 2018. - Enterobacter hormaechi positive from wound cultures - Anemia with iron deficiency status post IV iron 3 doses - Hypertension - Diabetes mellitus type 2 insulin-dependent - Hypokalemia secondary to diuresis replaced. - DVT prophylaxis Plan: Patient be continued on diuresis with Lasix 60 mg twice a day and metolazone. Follow-up renal function. Continue with antibiotics. Continue with PPI. Continue the current management and follow up closely. Prognosis is guarded with multiple medical problems and comorbid conditions. Time with Patient: Greater than 30
--- NOTE | 2019-02-11 00:12 | P.PN ---
Subjective Progress Note Date: 02/10/19 Principal diagnosis: Acute CHF exacerbation Acute on chronic kidney disease 58-year-old gentleman admitted for CHF exacerbation and acute renal failure. He was started on Lasix drip initially. Cardiology and nephrology are following the patient. His Lasix drip was discontinued and was started on Lasix 60 mg twice a day IV push. Infectious disease also consulted for cellulitis in the scrotal area. 02/09/2019 Patient denied any complaints of chest pain or shortness of breath. Lower extremity swelling and scrotal swelling is improving. Currently on oral Lasix. Patient had EGD done today showed mild gastritis and duodenitis with small duodenal ulcer. Currently on PPI Left foot wound cultures Enterobacter species. Currently on antibiotics in the form of ceftriaxone. Creatinine level improved to 1.87 today. Nephrology is on board. No nausea vomiting or abdominal pain or diarrhea. 02/10/2019 Patient scrotal swelling and leg swelling is improving. Continued on Lasix 60 mg twice a day and metolazone. No complaints of chest pain or worsening shortness of breath. No nausea vomiting or abdominal pain. Creatinine level is 1.9 today. Nephrology and cardiology is following. Anticipate discharge in next 24 hours with final ID recommendations. All other review of systems negative except the above. Current medications reviewed. Objective - Vital Signs Vital signs: Vital Signs Temp 98.4 F 02/10/19 19:24 Pulse 87 02/10/19 19:24 Resp 20 02/10/19 19:24 BP 106/70 02/10/19 19:24 Pulse Ox 92 L 02/10/19 19:24 Intake & Output 02/10/19 02/10/19 02/11/19 06:59 18:59 06:59 Intake Total 850 650 Balance 850 650 Weight 110.7 kg Intake: Intake, IV Titration 50 Amount cefTRIAXone 2 gm In 50 Sodium Chloride 0.9% 50 ml @ 100 mls/hr IVPB Q24HR [facility] Rx#:[id number] Oral 850 600 Other: Voiding Method Urinal Urinal # Voids 1 2 - Exam On exam, alert and oriented x3. HEENT: Conjunctivae normal. eyes normal. NECK: No JVD. No thyroid enlargement. No LNs CARDIOVASCULAR: S1-S2 positive RESPIRATION: Breath sounds diminished in the bases. No rhonchi or crackles. No bronchial breathing. ABDOMEN: Soft, nontender today epigastric area. No guarding. no masses pal pable. No ascites, No hepatosplenomegaly.Bowel sounds heard. swelling of the scrotum appreciated. LEGS: He is having +2 pitting edema. Amputation of greattoe, left foot wrapped NERVOUS SYSTEM: Cranial N 2-12 grossly normal. Moves all 4 limbs. No focal deficits. No sensory deficit. No signs of cerebellar dysfucntion. Skin: no ulcer no rash . He has laceration to his left wrist - Labs CBC & Chem 7: 02/09/19 05:44 02/10/19 08:02 Labs: Abnormal Lab Results - Last 24 Hours (Table) 02/10/19 02/10/19 02/10/19 Range/Units 06:57 08:02 11:53 Chloride 90 L (98-107) mmol/L Carbon Dioxide 39 H (22-30) mmol/L BUN 50 H (9-20) mg/dL Creatinine 1.90 H (0.66-1.25) mg/dL Glucose 61 L (74-99) mg/dL POC Glucose (mg/dL) 62 L 145 H (75-99) mg/dL Calcium 8.2 L (8.4-10.2) mg/dL 02/10/19 02/10/19 Range/Units 16:38 19:50 Chloride (98-107) mmol/L Carbon Dioxide (22-30) mmol/L BUN (9-20) mg/dL Creatinine (0.66-1.25) mg/dL Glucose (74-99) mg/dL POC Glucose (mg/dL) 117 H 157 H (75-99) mg/dL Calcium (8.4-10.2) mg/dL Microbiology - Last 24 Hours (Table) 02/09/19 08:46 Urine Culture - Final Urine,Voided Assessment and Plan Assessment: - Acute on chronic CHF with diastolic dysfunction - Duodenal ulcer. Abdominal pain/ fundus thickening. status post EGD showed gastritis and duodenitis and duodenal ulcer. 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 - Enterobacter hormaechi positive from wound cultures - Anemia with iron deficiency status post IV iron 3 doses - Hypertension - Diabetes mellitus type 2 insulin-dependent - Hypokalemia secondary to diuresis replaced. - DVT prophylaxis Plan: Patient be continued on diuresis with Lasix 60 mg twice a day and metolazone. Follow-up renal function. Continue with antibiotics. Continue with PPI. Continue the current management and follow up closely. Prognosis is guarded with multiple medical problems and comorbid conditions. Time with Patient: Greater than 30
[2019-02-11 01:21] VITALS: TEMP 98.6
[2019-02-11 07:14] LABS: Glucose,Whole Blood 95 mg/dL (75-99)
[2019-02-11] MEDS: METOLAZONE 5 MG TAB PO SCH (07:26)
[2019-02-11] MEDS: FUROSEMIDE 20 MG TAB PO SCH (07:26)
[2019-02-11] MEDS: ALPRAZolam 1 MG TAB PO SCH (07:26)
[2019-02-11] MEDS: ASPIRIN 81 MG PO SCH (07:26)
[2019-02-11] MEDS: PANTOPRAZOLE 40 MG TABLET PO SCH (07:26)
[2019-02-11] MEDS: METOPROLOL TARTRATE 25 MG TAB PO SCH (07:26)
[2019-02-11] MEDS: HEPARIN SODIUM,PORCINE 5,000 UNIT/ML 1 ML VIAL SQ SCH (07:27)
[2019-02-11] MEDS: SERTRALINE 50 MG TAB PO SCH (07:27)
[2019-02-11] MEDS: INSULIN ASPART (NovoLOG) 100 UNIT/ML VIAL SQ SCH ×2 (07:27→11:40)
[2019-02-11] MEDS: INSULIN DETEMIR (LEVEMIR) 100 UNIT/ML SYR SQ SCH (07:32)
[2019-02-11 07:54] VITALS: BP 102/66; PULSE 82; RESP 16
[2019-02-11] MEDS ORDERED: POTASSIUM CHLORIDE ER 20 MEQ TAB.ER PO SCH (09:00)
[2019-02-11 09:20] LABS: Calcium 7.8 mg/dL (8.4-10.2); Potassium 3.2 mmol/L (3.5-5.1)
[2019-02-11 09:36] LABS: Anisocytosis Slight; Basophils % (A) 0 %; Eosinophils # (A) 0.3 k/uL (0-0.7); Eosinophils % (A) 3 %; HCT 30.4 % (39.0-53.0); HGB 9.3 gm/dL (13.0-17.5); Hypochromasia Marked; Lymphocytes # (A) 0.9 k/uL (1.0-4.8); Lymphocytes % (A) 9 %; MCH 26.3 pg (25.0-35.0); MCHC 30.4 g/dL (31.0-37.0); MCV 86.5 fL (80.0-100.0); Mean Platelet Volume 7.2; Monocytes # (A) 0.5 k/uL (0-1.0); Monocytes % (A) 5 %; Neutrophils # (A) 8.2 k/uL (1.3-7.7); Neutrophils % (A) 82 %; Platelet Count 345 k/uL (150-450); Poikilocytosis Slight; RBC 3.52 m/uL (4.30-5.90); RDW 17.6 % (11.5-15.5); WBC 9.9 k/uL (3.8-10.6)
--- NOTE | 2019-02-11 10:43 | P.PN ---
Subjective Patient is seen in follow-up for acute kidney injury. Renal function is stable. Creatinine 1.85 today. Edema has improved significantly since admission. He is maintained on oral diuretics. He is nonoliguric. Denies chest pain or shortness of breath. Vital signs are stable. General: The patient appeared well nourished and normally developed. HEENT: Head exam is unremarkable. Neck is without jugular venous distension. LUNGS: Breath sounds decreased. HEART: Rate and Rhythm are regular. First and second heart sounds normal. No murmurs, rubs or gallops. ABDOMEN: Abdominal exam reveals normal bowel sounds. Non-tender and non- distended. EXTREMITITES: Trace edema. Objective - Vital Signs Vital signs: Vital Signs Temp 98.6 F 02/11/19 07:00 Pulse 82 02/11/19 07:26 Resp 16 02/11/19 07:26 BP 102/66 02/11/19 07:00 Pulse Ox 96 02/11/19 07:00 Intake & Output 02/10/19 02/11/19 02/11/19 18:59 06:59 18:59 Intake Total 650 740 Balance 650 740 Weight 111.1 kg Intake: Intake, IV Titration 50 Amount cefTRIAXone 2 gm In 50 Sodium Chloride 0.9% 50 ml @ 100 mls/hr IVPB Q24HR [facility] Rx#:[id number] Oral 600 740 Other: Voiding Method Urinal Toilet Urinal # Voids 2 2 - Labs CBC & Chem 7: 02/11/19 08:41 02/11/19 08:41 Labs: Abnormal Lab Results - Last 24 Hours (Table) 02/10/19 02/10/19 02/10/19 Range/Units 11:53 16:38 19:50 RBC (4.30-5.90) m/uL Hgb (13.0-17.5) gm/dL Hct (39.0-53.0) % MCHC (31.0-37.0) g/dL RDW (11.5-15.5) % Neutrophils # (1.3-7.7) k/uL Lymphocytes # (1.0-4.8) k/uL Sodium (137-145) mmol/L Potassium (3.5-5.1) mmol/L Chloride (98-107) mmol/L Carbon Dioxide (22-30) mmol/L BUN (9-20) mg/dL Creatinine (0.66-1.25) mg/dL Glucose (74-99) mg/dL POC Glucose (mg/dL) 145 H 117 H 157 H (75-99) mg/dL Calcium (8.4-10.2) mg/dL 02/11/19 02/11/19 Range/Units 08:41 08:41 RBC 3.52 L (4.30-5.90) m/uL Hgb 9.3 L (13.0-17.5) gm/dL Hct 30.4 L (39.0-53.0) % MCHC 30.4 L (31.0-37.0) g/dL RDW 17.6 H (11.5-15.5) % Neutrophils # 8.2 H (1.3-7.7) k/uL Lymphocytes # 0.9 L (1.0-4.8) k/uL Sodium 136 L (137-145) mmol/L Potassium 3.2 L (3.5-5.1) mmol/L Chloride 91 L (98-107) mmol/L Carbon Dioxide 36 H (22-30) mmol/L BUN 52 H (9-20) mg/dL Creatinine 1.85 H (0.66-1.25) mg/dL Glucose 111 H (74-99) mg/dL POC Glucose (mg/dL) (75-99) mg/dL Calcium 7.8 L (8.4-10.2) mg/dL Microbiology - Last 24 Hours (Table) 02/09/19 08:46 Urine Culture - Final Urine,Voided Assessment and Plan Plan: Assessment: 1. Acute kidney injury mostly prerenal secondary to cardiorenal syndrome. Creatinine 1.85 today. Baseline creatinine near 1. UA is quite benign. Ultrasound from last month revealed no evidence of hydronephrosis. 2. Dyspnea secondary to volume overload. Improved. 3. Insulin-dependent diabetes mellitus. 4. Anemia. Severe iron deficiency noted. Status post 3 doses of IV iron. 5. Benign hypertension. Blood pressures on the low side. 6. 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 7. Hypomagnesemia secondary to diuresis. Improved. 8. Diastolic CHF. 9. Hypokalemia secondary to diuresis. 10. Metabolic alkalosis secondary to diuresis. Stable. 11. Abdominal discomfort with fundal thickening. GI following. Status post EGD on February 09 which revealed nonbleeding duodenal ulcer and gastritis. Plan: Maintain Lasix 60 mg orally twice daily. Discontinue metolazone. Low-salt diet and 1.5 L fluid restriction. Avoid nephrotoxins. Replace potassium. 80 mEq today. Maintain daily potassium supplementation. Discontinued hydralazine as blood pressure is low. Repeat electrolytes in the morning. Stable to be discharged home from nephrology standpoint and Lasix 60 mg orally twice daily and K-Dur 20 milliequivalents twice daily. He is to get a repeat BMP checked within 2-3 days of discharge and follow up outpatient in the next 1 week.
[2019-02-11 11:39] LABS: Glucose,Whole Blood 124 mg/dL (75-99)
[2019-02-11] MEDS: POTASSIUM CHLORIDE ER 20 MEQ TAB.ER PO SCH ×2 (11:45→13:48)
--- NOTE | 2019-02-11 14:37 | P.DS ---
Providers Date of admission: 01/29/19 10:38 Attending physician: Rachel Grewal MD Consults: 01/29/19 10:41 Consult Physician Stat Consulting Provider: [facility] Consult Reason/Comments: CHF, pleural effusion, BLE, elevated trop Do you want consulting provider notified?: Yes Consult Physician Stat Consulting Provider: Primitivo Burkett Consult Reason/Comments: CHF, pleural effusion, SOB Do you want consulting provider notified?: Yes 01/29/19 12:01 Consult Physician Routine Consulting Provider: Evie Bass Consult Reason/Comments: ckd Do you want consulting provider notified?: Yes 01/29/19 15:12 Consult Physician Routine Consulting Provider: Te Mustafa Consult Reason/Comments: cellulitis, necrotizing fasciitis of scrotum Do you want consulting provider notified?: Yes 01/29/19 15:13 Consult Physician Routine Consulting Provider: Sandoval Irby Consult Reason/Comments: cellulitis, left toe amputation Do you want consulting provider notified?: Yes 02/07/19 13:42 Consult Physician Routine Consulting Provider: Uriel Arceo Consult Reason/Comments: dilatation of fundus and body of body and wall of duodenum Do you want consulting provider notified?: Yes Primary care physician: [facility] Course: 58-year-old gentleman admitted for CHF exacerbation and acute renal failure. He was started on Lasix drip initially. Cardiology and nephrology are following the patient. His Lasix drip was discontinued and was started on Lasix 60 mg twice a day IV push. Infectious disease also consulted for cellulitis in the scrotal area. 02/09/2019 Patient denied any complaints of chest pain or shortness of breath. Lower extremity swelling and scrotal swelling is improving. Currently on oral Lasix. Patient had EGD done today showed mild gastritis and duodenitis with small duodenal ulcer. Currently on PPI Left foot wound cultures Enterobacter species. Currently on antibiotics in the form of ceftriaxone. Creatinine level improved to 1.87 today. Nephrology is on board. No nausea vomiting or abdominal pain or diarrhea. 02/10/2019 Patient scrotal swelling and leg swelling is improving. Continued on Lasix 60 mg twice a day and metolazone. No complaints of chest pain or worsening shortness of breath. No nausea vomiting or abdominal pain. Creatinine level is 1.9 today. Nephrology and cardiology is following. Anticipate discharge in next 24 hours with final ID recommendations. 02/11/2019 Patient is a euvolemic was evaluated by nephrology recommending 40 oral twice a day of Lasix metolazone to be discontinued and the patient will be discharged on potassium supplementation 20 twice a day. Patient is that the being discharged on by mouth antibiotics cephalosporins for his wound infection On exam, alert and oriented x3. HEENT: Conjunctivae normal. eyes normal. NECK: No JVD. No thyroid enlargement. No LNs CARDIOVASCULAR: S1-S2 positive RESPIRATION: Breath sounds diminished in the bases. No rhonchi or crackles. No bronchial breathing. ABDOMEN: Soft, nontender today epigastric area. No guarding. no masses palpable. No ascites, No hepatosplenomegaly.Bowel sounds heard. swelling of the scrotum appreciated. LEGS: He is having +2 pitting edema. Amputation of greattoe, left foot wrapped NERVOUS SYSTEM: Cranial N 2-12 grossly normal. Moves all 4 limbs. No focal deficits. No sensory deficit. No signs of cerebellar dysfucntion. Skin: no ulcer no rash . He has laceration to his left wrist Assessment and Plan Assessment: - Acute on chronic CHF with diastolic dysfunction - Duodenal ulcer. Abdominal pain/ fundus thickening. status post EGD showed gastritis and duodenitis and duodenal ulcer. - AK I due to prerenal secondary to cardiorenal syndrome, improved - Enterobacter hormaechi positive from wound cultures from the ulcer near the amputated great toe - Anemia with iron deficiency status post IV iron 3 doses - Hypertension - Diabetes mellitus type 2 insulin-dependent - Hypokalemia secondary to diuresis replaced. Please refer to dictation from Dr. Mcnally for further details of further problems Patient Condition at Discharge: Fair Plan - Discharge Summary Discharge Rx Participant: No New Discharge Prescriptions: New Aspirin 81 mg PO DAILY #30 chew Potassium Chloride ER [K-Dur 20] 20 meq PO BID #60 tab.er.prt Cefuroxime Axetil [Ceftin] 500 mg PO BID #28 tab Continue Metoprolol Tartrate [Lopressor] 25 mg PO BID 30 Days #60 tab Atorvastatin [Lipitor] 80 mg PO HS 30 Days #30 tab Furosemide [Lasix] 40 mg PO BID #14 tablet lamoTRIgine [LaMICtal] 100 mg PO HS@2100 Sertraline HCl [Zoloft] 50 mg PO DAILY Insulin Glargine,Hum.rec.anlog [Lantus Solostar] 35 unit SQ DAILY INSULIN ASPART (NovoLOG) [NovoLOG (formulary)] 5 unit SQ AC-SUPPER Discontinued cloNIDine HCL [Catapres] 0.1 mg PO BID 30 Days #60 tab Alogliptin Benzoate [Alogliptin] 25 mg PO DAILY 30 Days #30 tablet metFORMIN HCL 1,000 mg PO BID ALPRAZolam [Xanax] 1 mg PO DAILY Discharge Medication List Atorvastatin [Lipitor] 80 mg PO HS 30 Days #30 tab 01/19/19 [Rx] Furosemide [Lasix] 40 mg PO BID #14 tablet 01/19/19 [Rx] Metoprolol Tartrate [Lopressor] 25 mg PO BID 30 Days #60 tab 01/19/19 [Rx] lamoTRIgine [LaMICtal] 100 mg PO HS@2100 01/20/19 [History] INSULIN ASPART (NovoLOG) [NovoLOG (formulary)] 5 unit SQ AC-SUPPER 01/29/19 [History] Insulin Glargine,Hum.rec.anlog [Lantus Solostar] 35 unit SQ DAILY 01/29/19 [History] Sertraline HCl [Zoloft] 50 mg PO DAILY 01/29/19 [History] Aspirin 81 mg PO DAILY #30 chew 02/11/19 [Rx] Cefuroxime Axetil [Ceftin] 500 mg PO BID #28 tab 02/11/19 [Rx] Potassium Chloride ER [K-Dur 20] 20 meq PO BID #60 tab.er.prt 02/11/19 [Rx] Follow up Appointment(s)/Ref[facility]): [facility] - Te Mustafa MD [STAFF PHYSICIAN] - As Needed (fowllow up as needed if a problem arises) [facility] [Primary Care Provider] - 3 Days (office will call with the appointment time) Patient Instructions/Handouts: Heart Failure (ER) Discharge Disposition: HOME WITH HOME HEALTH SERVICES
== END 2019-02-11 14:55 | disposition home health service (06) | DRG 291 ==
LOC: EC 08:09 → 3SCARD 10:38 → 4SSUR 02-09 22:41
PROVIDERS: ADMIT Internal Medicine; ATTEND Internal Medicine
PROC: 0DB78ZX Excision of Stomach, Pylorus, Via Natural or Artificial Opening Endoscopic, Diagnostic (ICD-10-PCS; 2019-02-09)
PROC: 0DB98ZX Excision of Duodenum, Via Natural or Artificial Opening Endoscopic, Diagnostic (ICD-10-PCS; principal; 2019-02-09 08:00)
DX: I13.0 Hypertensive heart and chronic kidney disease with heart failure and stage 1 through stage 4 chronic kidney disease, or unspecified chronic kidney disease (principal); I50.33 Acute on chronic diastolic (congestive) heart failure; N17.0 Acute kidney failure with tubular necrosis; J18.9 Pneumonia, unspecified organism; N17.9 Acute kidney failure, unspecified; L03.115 Cellulitis of right lower limb; L03.116 Cellulitis of left lower limb; Z68.41 Body mass index [BMI] 40.0-44.9, adult; E87.3 Alkalosis; E87.1 Hypo-osmolality and hyponatremia; J98.11 Atelectasis; T87.81 Dehiscence of amputation stump; E66.01 Morbid (severe) obesity due to excess calories; I95.9 Hypotension, unspecified; E11.22 Type 2 diabetes mellitus with diabetic chronic kidney disease; E11.51 Type 2 diabetes mellitus with diabetic peripheral angiopathy without gangrene; I07.1 Rheumatic tricuspid insufficiency; E11.621 Type 2 diabetes mellitus with foot ulcer; K26.9 Duodenal ulcer, unspecified as acute or chronic, without hemorrhage or perforation; L97.519 Non-pressure chronic ulcer of other part of right foot with unspecified severity; E83.42 Hypomagnesemia; N49.2 Inflammatory disorders of scrotum; K29.80 Duodenitis without bleeding; K29.70 Gastritis, unspecified, without bleeding; D50.9 Iron deficiency anemia, unspecified; N18.2 Chronic kidney disease, stage 2 (mild); B96.89 Other specified bacterial agents as the cause of diseases classified elsewhere; G51.0 Bell's palsy; N50.89 Other specified disorders of the male genital organs; N44.8 Other noninflammatory disorders of the testis; T50.2X5A Adverse effect of carbonic-anhydrase inhibitors, benzothiadiazides and other diuretics, initial encounter; F31.9 Bipolar disorder, unspecified; E87.6 Hypokalemia; F41.9 Anxiety disorder, unspecified; E78.5 Hyperlipidemia, unspecified; G40.909 Epilepsy, unspecified, not intractable, without status epilepticus; R26.9 Unspecified abnormalities of gait and mobility; G47.00 Insomnia, unspecified; Z79.4 Long term (current) use of insulin; Z79.899 Other long term (current) drug therapy; Z91.19 Patient's noncompliance with other medical treatment and regimen; Z91.5 Personal history of self-harm; Z89.412 Acquired absence of left great toe; Z89.422 Acquired absence of other left toe(s); Z86.010 Personal history of colon polyps; Z87.891 Personal history of nicotine dependence; Z83.3 Family history of diabetes mellitus; Z83.49 Family history of other endocrine, nutritional and metabolic diseases; Z83.79 Family history of other diseases of the digestive system
CPT/HCPCS: 36415; 43239; 70496; 71045; 71046; 74176; 76700; 80048; 80053; 81001; 81003; 82140; 82728; 83036; 83540; 83550; 83605; 83690; 83735; 83880; 84132; 84484; 85025; 85027; 85610; 85730; 87040; 87070; 87077; 87086; 87186; 87205; 88305; 93005; 93306; 96374; 96376; 99285

== ENCOUNTER 2019-03-01 10:39 | Inpatient (IN) | payer OTHER ==
[2019-03-01 11:47] LABS: Anisocytosis Slight; Basophils # (A) 0.1 k/uL (0-0.2); Basophils % (A) 1 %; Eosinophils # (A) 1.2 k/uL (0-0.7); Eosinophils % (A) 11 %; HCT 36.3 % (39.0-53.0); Hypochromasia Moderate; Lymphocytes # (A) 1.4 k/uL (1.0-4.8); Lymphocytes % (A) 13 %; MCHC 30.4 g/dL (31.0-37.0); MCV 85.4 fL (80.0-100.0); Mean Platelet Volume 6.5; Monocytes # (A) 0.7 k/uL (0-1.0); Monocytes % (A) 6 %; Neutrophils # (A) 7.4 k/uL (1.3-7.7); Neutrophils % (A) 67 %; Platelet Count 501 k/uL (150-450); RBC 4.25 m/uL (4.30-5.90); RDW 17.9 % (11.5-15.5); WBC 11.1 k/uL (3.8-10.6)
[2019-03-01 12:03] LABS: Albumin 3.1 g/dL (3.5-5.0); Calcium 8.5 mg/dL (8.4-10.2); Magnesium 2.5 mg/dL (1.6-2.3); Phosphorus 5.5 mg/dL (2.5-4.5); Total Bilirubin 0.5 mg/dL (0.2-1.3); Total Protein 5.9 g/dL (6.3-8.2)
[2019-03-01 12:05] LABS: Partial Thromboplastin Time 28.6 sec (22.0-30.0)
[2019-03-01] MEDS ORDERED: DEXAMETHASONE SOD PHOSPHATE 10 MG/ML 1 ML VIAL IV STA (12:07)
--- NOTE | 2019-03-01 12:08 | ED ---
Extremity Problem HPI - General Chief complaint: Extremity Problem,Nontraumatic Stated complaint: kidney problems Time Seen by Provider: 03/01/19 11:15 Source: patient, RN notes reviewed, old records reviewed Mode of arrival: wheelchair Limitations: no limitations - History of Present Illness Initial comments: This is a 58-year-old male the ER for evaluation. Patient presents today for evaluation of possible probable renal failure along with significant lower body extremity swelling upper extremity swelling abdominal facial swelling. Patient is on 2 diuretics at home with no improvement MD Complaint: extremity swelling, joint swelling -: days(s) Location: left, right, upper extremity, bilateral lower extremity History of Same: Yes Radiation: none Severity scale (1-10): 10 Quality: aching Consistency: constant Improves with: nothing Worsens with: nothing Associated Symptoms: shortness of breath - Related Data Home Medications Medication Instructions Recorded Confirmed lamoTRIgine [LaMICtal] 100 mg PO HS@2100 01/20/19 03/01/19 Insulin Glargine,Hum.rec.anlog 35 unit SQ DAILY 01/29/19 03/01/19 [Lantus Solostar] Insulin Aspart [NovoLOG Flexpen] 5 units SQ AC-SUPPER 03/01/19 03/01/19 Metolazone [Zaroxolyn] 5 mg PO DAILY 03/01/19 03/01/19 Sertraline [Zoloft] 50 mg PO DAILY 03/01/19 03/01/19 risperiDONE 4 mg PO HS 03/01/19 03/01/19 Previous Rx's Medication Instructions Recorded Atorvastatin [Lipitor] 80 mg PO HS 30 Days #30 tab 01/19/19 Furosemide [Lasix] 40 mg PO BID #14 tablet 01/19/19 Metoprolol Tartrate [Lopressor] 25 mg PO BID 30 Days #60 tab 01/19/19 Aspirin 81 mg PO DAILY #30 chew 02/11/19 Potassium Chloride ER [K-Dur 20] 20 meq PO BID #60 tab.er.prt 02/11/19 Allergies Allergy/AdvReac Type Severity Reaction Status Date / Time No Known Allergies Allergy Verified 03/01/19 11:31 Review of Systems ROS Statement: Those systems with pertinent positive or pertinent negative responses have been documented in the HPI. ROS Other: All systems not noted in ROS Statement are negative. 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 History of Any Multi-Drug Resistant Organisms: None Reported Past Surgical History: Adenoidectomy, Tonsillectomy Additional Past Surgical History / Comment(s): L great toe amputation, L 5th toe amputation, L writst laceration repair, colonoscopy with benign polypectomies Past Anesthesia/Blood Transfusion Reactions: No Reported Reaction Past Psychological History: Anxiety, Bipolar, Depression Smoking Status: Former smoker Past Alcohol Use History: None Reported Past Drug Use History: None Reported, Marijuana - Past Family History Father Family Medical History: Diabetes Mellitus Additional Family Medical History / Comment(s): Father had gallbladder disease. He is 77yrs old. Mother Family Medical History: Hyperlipidemia General Exam - General Exam Comments Initial Comments: Patient has significant edema throughout entire bodyarms abdomen legs to the point of inflammation, mild cellulitis likely not infectious Limitations: no limitations General appearance: alert, in no apparent distress Head exam: Present: atraumatic, normocephalic, normal inspection Eye exam: Present: normal appearance, PERRL, EOMI. Absent: scleral icterus, conjunctival injection, periorbital swelling ENT exam: Present: normal exam, mucous membranes moist Neck exam: Present: normal inspection. Absent: tenderness, meningismus, lymphad enopathy Respiratory exam: Present: normal lung sounds bilaterally. Absent: respiratory distress, wheezes, rales, rhonchi, stridor Cardiovascular Exam: Present: regular rate, normal rhythm, normal heart sounds. Absent: systolic murmur, diastolic murmur, rubs, gallop, clicks GI/Abdominal exam: Present: soft, normal bowel sounds. Absent: distended, tenderness, guarding, rebound, rigid Extremities exam: Present: normal inspection, full ROM, normal capillary refill. Absent: tenderness, pedal edema, joint swelling, calf tenderness Back exam: Present: normal inspection Neurological exam: Present: alert, oriented X3, CN II-XII intact Psychiatric exam: Present: normal affect, normal mood Skin exam: Present: warm, dry, intact, normal color. Absent: rash Course Vital Signs 03/01/19 03/01/19 11:01 12:30 Temperature 98.5 F 98.1 F Pulse Rate 72 83 Respiratory 18 16 Rate Blood Pressure 100/62 101/70 O2 Sat by Pulse 100 100 Oximetry - Reevaluation(s) Reevaluation #1: 03/01/19 13:25 Medical record is reviewed Reevaluation #2: 03/01/19 13:25 Patient has no improvement in symptoms Medical Decision Making - Medical Decision Making 58 male the ER for evaluation of shortness of breath and significant edema 14 pound waking. Severe anasarca and significant swelling throughout entire body will admit for diuresis - Lab Data Result diagrams: 03/01/19 11:35 03/01/19 11:35 Lab Results 03/01/19 03/01/19 03/01/19 Range/Units 11:35 11:35 11:35 WBC 11.1 H (3.8-10.6) k/uL RBC 4.25 L (4.30-5.90) m/uL Hgb 11.0 L (13.0-17.5) gm/dL Hct 36.3 L (39.0-53.0) % MCV 85.4 (80.0-100.0) fL MCH 26.0 (25.0-35.0) pg MCHC 30.4 L (31.0-37.0) g/dL RDW 17.9 H (11.5-15.5) % Plt Count 501 H (150-450) k/uL Neutrophils % 67 % Lymphocytes % 13 % Monocytes % 6 % Eosinophils % 11 % Basophils % 1 % Neutrophils # 7.4 (1.3-7.7) k/uL Lymphocytes # 1.4 (1.0-4.8) k/uL Monocytes # 0.7 (0-1.0) k/uL Eosinophils # 1.2 H (0-0.7) k/uL Basophils # 0.1 (0-0.2) k/uL Hypochromasia Moderate Anisocytosis Slight PT (9.0-12.0) sec INR (<1.2) APTT (22.0-30.0) sec Sodium 136 L (137-145) mmol/L Potassium 5.0 (3.5-5.1) mmol/L Chloride 98 (98-107) mmol/L Carbon Dioxide 25 (22-30) mmol/L Anion Gap 13 mmol/L BUN 67 H (9-20) mg/dL Creatinine 1.92 H (0.66-1.25) mg/dL Est GFR (CKD-EPI)AfAm 44 (>60 ml/min/1.73 sqM) Est GFR (CKD-EPI)NonAf 38 (>60 ml/min/1.73 sqM) Glucose 164 H (74-99) mg/dL Plasma Lactic Acid Beltran 2.9 H* (0.7-2.0) mmol/L Calcium 8.5 (8.4-10.2) mg/dL Phosphorus 5.5 H (2.5-4.5) mg/dL Magnesium 2.5 H (1.6-2.3) mg/dL Total Bilirubin 0.5 (0.2-1.3) mg/dL AST 19 (17-59) U/L ALT 19 L (21-72) U/L Alkaline Phosphatase 100 (38-126) U/L Troponin I (0.000-0.034) ng/mL Total Protein 5.9 L (6.3-8.2) g/dL Albumin 3.1 L (3.5-5.0) g/dL 03/01/19 03/01/19 Range/Units 11:35 11:35 WBC (3.8-10.6) k/uL RBC (4.30-5.90) m/uL Hgb (13.0-17.5) gm/dL Hct (39.0-53.0) % MCV (80.0-100.0) fL MCH (25.0-35.0) pg MCHC (31.0-37.0) g/dL RDW (11.5-15.5) % Plt Count (150-450) k/uL Neutrophils % % Lymphocytes % % Monocytes % % Eosinophils % % Basophils % % Neutrophils # (1.3-7.7) k/uL Lymphocytes # (1.0-4.8) k/uL Monocytes # (0-1.0) k/uL Eosinophils # (0-0.7) k/uL Basophils # (0-0.2) k/uL Hypochromasia Anisocytosis PT 11.0 (9.0-12.0) sec INR 1.0 (<1.2) APTT 28.6 (22.0-30.0) sec Sodium (137-145) mmol/L Potassium (3.5-5.1) mmol/L Chloride (98-107) mmol/L Carbon Dioxide (22-30) mmol/L Anion Gap mmol/L BUN (9-20) mg/dL Creatinine (0.66-1.25) mg/dL Est GFR (CKD-EPI)AfAm (>60 ml/min/1.73 sqM) Est GFR (CKD-EPI)NonAf (>60 ml/min/1.73 sqM) Glucose (74-99) mg/dL Plasma Lactic Acid Beltran (0.7-2.0) mmol/L Calcium (8.4-10.2) mg/dL Phosphorus (2.5-4.5) mg/dL Magnesium (1.6-2.3) mg/dL Total Bilirubin (0.2-1.3) mg/dL AST (17-59) U/L ALT (21-72) U/L Alkaline Phosphatase (38-126) U/L Troponin I 0.018 (0.000-0.034) ng/mL Total Protein (6.3-8.2) g/dL Albumin (3.5-5.0) g/dL - EKG Data -: EKG Interpreted by Me (EKG shows sinus rhythm rate 70, CA 208, QRS 10/04/18 34, QTc 481) - Radiology Data Radiology results: report reviewed (Chest x-rays positive for CHF), image reviewed Disposition Clinical Impression: CHF (congestive heart failure), Renal insufficiency, Anasarca Disposition: ADMITTED IP TO THIS HOSP Condition: Fair Is patient prescribed a controlled substance at d/c from ED?: No Referrals: [facility],Clinic [Primary Care Provider] - 1-2 days
--- NOTE | 2019-03-01 12:26 | XR ---
EXAMINATION TYPE: XR chest 2V DATE OF EXAM: 03/01/2019 COMPARISON: Chest x-ray February 09, 2019 HISTORY: Weakness and fluid retention. TECHNIQUE: Frontal and lateral views of the chest are obtained. FINDINGS: The cardiac silhouette size is within normal limits. Mild central vascular congestion is f elt present. There are small bilateral pleural effusions redemonstrated seen best on lateral view. No new focal airspace opacity or pneumothorax. The osseous structures remain demineralized. IMPRESSION: Correlate for CHF exacerbation as there is cardiomegaly with central vascular congestion and small bilateral pleural effusions redemonstrated.
[2019-03-01] MEDS: FUROSEMIDE 10 MG/ML 4 ML VIAL IV SCH ×2 (14:17→21:09)
[2019-03-01 17:08] LABS: Glucose,Whole Blood 136 mg/dL (75-99)
[2019-03-01 17:08] LABS: Glucose,Whole Blood 139 mg/dL (75-99)
[2019-03-01] MEDS ORDERED: ALPRAZolam 0.25 MG TAB PO PRN (18:58)
[2019-03-01] MEDS ORDERED: HYDROcodone/APAP 5-325MG 1 EACH TAB PO PRN (19:31)
[2019-03-01 20:45] LABS: Glucose,Whole Blood 256 mg/dL (75-99)
[2019-03-01] MEDS ORDERED: risperiDONE 2 MG TAB PO SCH (21:00)
[2019-03-01] MEDS: lamoTRIgine 100 MG TAB PO SCH (21:08)
[2019-03-01] MEDS: INSULIN ASPART (NovoLOG) 100 UNIT/ML VIAL SQ SCH (21:08)
[2019-03-01] MEDS: HEPARIN SODIUM,PORCINE 5,000 UNIT/ML 1 ML VIAL SQ SCH (21:08)
[2019-03-01] MEDS: ATORVASTATIN 80 MG TAB PO SCH (21:08)
[2019-03-01] MEDS: POTASSIUM CHLORIDE ER 20 MEQ TAB.ER PO SCH (21:09)
[2019-03-01] MEDS: METOPROLOL TARTRATE 25 MG TAB PO SCH (21:09)
--- NOTE | 2019-03-01 23:13 | HP ---
HISTORY AND PHYSICAL CHIEF COMPLAINTS: Generalized swelling and anasarca as well as shortness of breath. HISTORY OF PRESENT ILLNESS: This 58-year-old gentleman with a past medical history of multiple medical problems, including diabetes mellitus, CHF, hypertension, hyperlipidemia, history of gangrene of the left great toe with amputation, osteomyelitis of the fifth toe with amputation, also has a history of anxiety, bipolar, depression. The patient also had recent history of suicide attempts. The patient also was recently admitted with generalized anasarca to [facility]. Ejection fraction was found to be 50% to 55%. Lasix drip was done. The patient had significant scrotal edema at that time. Patient improved significantly. The patient went home. Currently the patient is complaining of increasing edema, especially in the upper body, irritation, dry skin as well as some shortness of breath. The patient came to [facility] and has been admitted for further evaluation and treatment. There is no history of any fever, rigor or chills. No history of headache, loss of consciousness, seizures at this time. PAST MEDICAL HISTORY: 1. CHF. 2. Diabetes mellitus. 3. Hypertension. 4. Hyperlipidemia. 5. History of anxiety, bipolar, depression. MEDICATIONS: Medications prior to admission include: 1. Risperdal 4 mg at bedtime. 2. Lamictal 100 mg p.o. at bedtime. 3. Zoloft 50 mg p.o. daily. 4. K-Dur 20 mEq p.o. b.i.d. 5. Lopressor 25 mg p.o. b.i.d. 6. Zaroxolyn 5 mg p.o. daily. 7. FlexPen 5 mg before supper. 8. Lantus 35 units subcutaneously daily. 9. Lasix 40 mg p.o. b.i.d. 10.Lipitor 80 mg at bedtime. 11.Aspirin 81 mg daily. ALLERGIES: NONE. FAMILY HISTORY: History of gallbladder disease in the father. SOCIAL HISTORY: Previous history of smoking. No current smoking or alcohol intake. REVIEW OF SYSTEMS: ENT: Diminished hearing. Diminished vision. CARDIOVASCULAR SYSTEM: As mentioned earlier. RESPIRATORY SYSTEM: As mentioned earlier. GI: No nausea, vomiting. : No dysuria or retention. NERVOUS SYSTEM: No numbness, weakness. ALLERGY/IMMUNOLOGY: No asthma, hayfever. MUSCULOSKELETAL: As mentioned earlier. HEMATOLOGY/ONCOLOGY: No history of anemia. ENDOCRINE: No history of diabetes, hypothyroidism. CONSTITUTIONAL: As mentioned earlier. DERMATOLOGY: Negative. RHEUMATOLOGY: Negative. PSYCHIATRY: As mentioned earlier. PHYSICAL EXAMINATION: Patient is alert and oriented x3. Pulse is 84, blood pressure 99/51, respiration 18, temperature 98.1, pulse ox 98% on room air. HEENT: Conjunctivae normal. Oral mucosa moist. NECK: No jugular venous distention. No carotid bruit. No lymph node enlargement. CARDIOVASCULAR SYSTEM: S1, S2 muffled. RESPIRATORY SYSTEM: Breath sounds diminished at the bases. Bilateral scattered rhonchi and crackles. Expiratory wheezing also present. ABDOMEN: Soft, obese, non-tender. LEGS: Bilateral leg edema. Ulcers also present on the right big toe. Left big toe is status post amputation. The patient also had significant edema and scrotal edema also present which is much better. NERVOUS SYSTEM: Higher functions as mentioned earlier. Moves all 4 limbs. No focal motor or sensory deficit. LYMPHATICS: No lymph node palpable in neck, axillae or groin. JOINTS: No active deforming arthropathy. EXAMINATION OF SKIN: Significant edema present. Also dry skin present. LABS: WBC 11.1, hemoglobin 11, platelets 501. Creatinine is 1.92. Lactic acid 2.9. ASSESSMENT: 1. Congestive heart failure, acute exacerbation, with acute on chronic diastolic dysfunction, ejection fraction 50% to 55%. 2. Chronic renal failure, stage III. 3. History of cardiorenal syndrome. 4. History of scrotal edema. 5. History of facial edema as well as dry skin. 6. Bilateral foot infections and cellulitis and gangrene. 7. History of amputation of toes on the left foot. 8. Elevated lactic acid, possibly multifactorial. 9. Increased white count. 10.Anemia, normocytic. 11.History of congestive heart failure. 12.Diabetes mellitus, type 2. 13.Hypertension. 14.Hyperlipidemia. 15.History of recent suicide attempt by laceration of the left wrist. 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 17.History of insomnia. 18.Anxiety, bipolar, depression. 19.Remote history of nicotine dependence. 20.Obesity with body mass index of 39. RECOMMENDATIONS AND DISCUSSION: In this 58-year-old gentleman who presented with multiple complex medical issues, we will monitor the patient closely, continue the current medications, continue with symptomatic treatment. Will IV Lasix drip. Will consult Cardiology and Nephrology. Psychiatry will also be consulted and Infectious Disease is also consulted. We will obtain the cultures. Resume the home medications. Monitor blood sugars closely. Guarded prognosis because of multiple complex medical issues. Further recommendations to follow. A copy of this dictation is being forwarded to Dr. Salguero, who is the primary physician. MMODL / ALYCIAN: [id number] / MTDMissy
[2019-03-02 06:06] LABS: Glucose,Whole Blood 291 mg/dL (75-99)
[2019-03-02] MEDS: PANTOPRAZOLE 40 MG TABLET PO SCH (06:10)
[2019-03-02] MEDS: INSULIN ASPART (NovoLOG) 100 UNIT/ML VIAL SQ SCH ×4 (06:10→21:50)
[2019-03-02] MEDS: FUROSEMIDE 10 MG/ML 4 ML VIAL IV SCH ×3 (06:10→21:51)
[2019-03-02 07:24] LABS: Calcium 8.5 mg/dL (8.4-10.2); Potassium 4.8 mmol/L (3.5-5.1)
[2019-03-02 07:29] LABS: Anisocytosis Slight; Basophils # (A) 0.1 k/uL (0-0.2); Basophils % (A) 1 %; Eosinophils % (A) 1 %; HCT 32.3 % (39.0-53.0); HGB 9.9 gm/dL (13.0-17.5); Hypochromasia Marked; Lymphocytes # (A) 1.1 k/uL (1.0-4.8); Lymphocytes % (A) 17 %; MCH 26.4 pg (25.0-35.0); MCHC 30.5 g/dL (31.0-37.0); MCV 86.6 fL (80.0-100.0); Mean Platelet Volume 7.2; Monocytes # (A) 0.5 k/uL (0-1.0); Monocytes % (A) 7 %; Neutrophils # (A) 4.8 k/uL (1.3-7.7); Neutrophils % (A) 72 %; Platelet Count 358 k/uL (150-450); RBC 3.74 m/uL (4.30-5.90); RDW 17.2 % (11.5-15.5); WBC 6.7 k/uL (3.8-10.6)
[2019-03-02] MEDS ORDERED: ENOXAPARIN 40 MG/0.4 ML SYRINGE SQ SCH (09:00)
[2019-03-02] MEDS ORDERED: INSULIN DETEMIR (LEVEMIR) 100 UNIT/ML SYR SQ SCH (09:00)
[2019-03-02] MEDS: HEPARIN SODIUM,PORCINE 5,000 UNIT/ML 1 ML VIAL SQ SCH ×2 (09:42→21:51)
[2019-03-02] MEDS: ASPIRIN 81 MG PO SCH (09:42)
[2019-03-02] MEDS: METOPROLOL TARTRATE 25 MG TAB PO SCH ×2 (09:42→21:52)
[2019-03-02] MEDS: POTASSIUM CHLORIDE ER 20 MEQ TAB.ER PO SCH ×2 (09:42→21:51)
[2019-03-02] MEDS: SERTRALINE 50 MG TAB PO SCH (09:42)
--- NOTE | 2019-03-02 11:37 | P.CRDCN ---
History of Present Illness Consult date: 03/02/19 Chief complaint: Upper and lower extremities edema History of present illness: This is a 58-year-old gentleman with a past medical history significant for chronic diastolic congestive heart failure, diabetes, hypertension, dyslipidemia, and history of bipolar disorder, presented to the emergency room complaining of edema in the upper and lower extremities. The edema started about 2 weeks ago and has progressed. The patient did gain about 15 pounds within these 2 weeks. Beside that for the last 2 days he has been noticing increasing in the shortness of breath with exertion. No symptoms of chest pain or chest discomfort, dizziness, heart racing or fluttering, and no syncope. The patient does have osteomyelitis of the left foot and he underwent amputation of the left great toe and he has been followed by Dr. Mustafa. No history of coronary artery disease and prior coronary revascularization. No cardiac arrhythmia in the past. He was in the hospital in January 2018 where an echocardiogram was performed and revealed normal LV function was mild MR and mild TR and normal pulmonary artery systolic pressure. This time the chest x-ra y showed findings consistent with CHF. The EKG showed sinus rhythm with low. The QRS. The rest of the blood work came in to be unremarkable except for mildly increased into creatinine which seems to be chronic. Beside that, the patient denies any fever or chills or cough. On examination, he does have extensive pitting edema of the upper and lower extremities with a component of cellulitis as well. Currently he is on Lasix IV. He stated that he was compliant with all of his medication and normally he put his medication in a box and take them everyday. Beside that he stated that he was compliant with his diet including salt intake. Past Medical History Past Medical History: Heart Failure, Diabetes Mellitus, Hyperlipidemia, Hypertension, Neurologic Disorder Additional Past Medical History / Comment(s): IDDM type II, PVD, recent gangrene L great toe with amputation, 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 Kidney insufficiency History of Any Multi-Drug Resistant Organisms: None Reported Past Surgical History: Adenoidectomy, Tonsillectomy Additional Past Surgical History / Comment(s): L great toe amputation, L 5th toe amputation, L writst laceration repair, colonoscopy with benign polypectomies Past Anesthesia/Blood Transfusion Reactions: No Reported Reaction Past Psychological History: Anxiety, Bipolar, Depression Additional Psychological History / Comment(s): Pt resides with his parents. He currently is independent He has had a recent suicide attempt by cutting L wrist and was admitted to [facility]. He states he no longer feels suicidal. stopped smoking about three years ago. Denies significant alcohol or recreational drug use. His parents are highly involved Smoking Status: Former smoker Past Alcohol Use History: None Reported Additional Past Alcohol Use History / Comment(s): Pt started smoking in 1975 and quit in 2015. Past Drug Use History: None Reported - Past Family History Father Family Medical History: Diabetes Mellitus Additional Family Medical History / Comment(s): Father had gallbladder disease. He is 77yrs old. Mother Family Medical History: Hyperlipidemia, Hypertension Medications and Allergies Home Medications Medication Instructions Recorded Confirmed Type Atorvastatin [Lipitor] 80 mg PO HS 30 Days #30 tab 01/19/19 03/01/19 Rx Furosemide [Lasix] 40 mg PO BID #14 tablet 01/19/19 03/01/19 Rx Metoprolol Tartrate [Lopressor] 25 mg PO BID 30 Days #60 tab 01/19/19 03/01/19 Rx lamoTRIgine [LaMICtal] 100 mg PO HS@2100 01/20/19 03/01/19 History Insulin Glargine,Hum.rec.anlog 35 unit SQ DAILY 01/29/19 03/01/19 History [Lantus Solostar] Aspirin 81 mg PO DAILY #30 chew 02/11/19 03/01/19 Rx Potassium Chloride ER [K-Dur 20] 20 meq PO BID #60 tab.er.prt 02/11/19 03/01/19 Rx Insulin Aspart [NovoLOG Flexpen] 5 units SQ AC-SUPPER 03/01/19 03/01/19 History Metolazone [Zaroxolyn] 5 mg PO DAILY 03/01/19 03/01/19 History Sertraline [Zoloft] 50 mg PO DAILY 03/01/19 03/01/19 History risperiDONE 4 mg PO HS 03/01/19 03/01/19 History Allergies Allergy/AdvReac Type Severity Reaction Status Date / Time No Known Allergies Allergy Verified 03/01/19 11:31 Physical Exam Vitals: Vital Signs Temp Pulse Pulse Resp BP BP Pulse Ox 03/02/19 08:00 97.3 F L 81 16 101/55 100 03/02/19 04:00 97.3 F L 81 18 112/69 91 L 03/02/19 03:30 79 18 03/02/19 00:00 83 17 113/73 98 03/01/19 20:00 97.5 F L 92 18 123/65 100 03/01/19 16:00 84 18 03/01/19 15:22 98.1 F 84 18 99/51 98 03/01/19 14:33 97.8 F 84 22 109/65 99 03/01/19 14:15 97.6 F 82 18 100/72 100 03/01/19 12:30 98.1 F 83 16 101/70 100 Intake and Output 03/01/19 03/02/19 03/02/19 22:59 06:59 14:59 Intake Total 240 600 360 Output Total 450 500 Balance -210 100 360 Intake: Oral 240 600 360 Output: Urine 450 500 Other: Voiding Method Toilet Toilet Urinal Urinal Weight 121.1 kg - Constitutional General appearance: no acute distress - Respiratory Respiratory: bilateral: diminished - Cardiovascular Rhythm: regular Heart sounds: normal: S1, S2 Abnormal Heart Sounds: systolic murmur Results 03/02/19 06:32 03/02/19 06:32 Cardiac Enzymes 03/01/19 03/01/19 Range/Units 11:35 11:35 AST 19 (17-59) U/L Troponin I 0.018 (0.000-0.034) ng/mL Coagulation 03/01/19 Range/Units 11:35 PT 11.0 (9.0-12.0) sec APTT 28.6 (22.0-30.0) sec CBC 03/01/19 03/02/19 Range/Units 11:35 06:32 WBC 11.1 H 6.7 (3.8-10.6) k/uL RBC 4.25 L 3.74 L (4.30-5.90) m/uL Hgb 11.0 L 9.9 L (13.0-17.5) gm/dL Hct 36.3 L 32.3 L (39.0-53.0) % Plt Count 501 H 358 (150-450) k/uL Comprehensive Metabolic Panel 03/01/19 03/02/19 Range/Units 11:35 06:32 Sodium 136 L 132 L (137-145) mmol/L Potassium 5.0 4.8 (3.5-5.1) mmol/L Chloride 98 97 L (98-107) mmol/L Carbon Dioxide 25 23 (22-30) mmol/L BUN 67 H 79 H (9-20) mg/dL Creatinine 1.92 H 1.95 H (0.66-1.25) mg/dL Glucose 164 H 279 H (74-99) mg/dL Calcium 8.5 8.5 (8.4-10.2) mg/dL AST 19 (17-59) U/L ALT 19 L (21-72) U/L Alkaline Phosphatase 100 (38-126) U/L Total Protein 5.9 L (6.3-8.2) g/dL Albumin 3.1 L (3.5-5.0) g/dL Current Medications Generic Name Dose Route Start Last Admin Trade Name Freq PRN Reason Stop Dose Admin Hydrocodone Bitart/Acetaminophen 1 each 03/01/19 19:31 [place] 5-325 PO Q6HR PRN Pain Alprazolam 0.25 mg 03/01/19 18:58 03/01/19 23:34 Xanax PO 0.25 mg TID PRN Administration Anxiety Aspirin 81 mg 03/02/19 09:00 03/02/19 09:42 Aspirin PO 81 mg DAILY HELEN Administration Atorvastatin Calcium 80 mg 03/01/19 21:00 03/01/19 21:08 Lipitor PO 80 mg HS HELEN Administration Furosemide 40 mg 03/01/19 14:00 03/02/19 06:10 Lasix IV 40 mg Q8H HELEN Administration Heparin Sodium (Porcine) 5,000 unit 03/01/19 21:00 03/02/19 09:42 Heparin SQ 5,000 unit Q12HR HELEN Administration Ceftriaxone Sodium 1 gm/ 50 mls @ 100 mls/hr 03/02/19 09:00 03/02/19 09:43 Sodium Chloride IVPB 100 mls/hr Q24HR HELEN Administration Insulin Aspart 0 unit 03/01/19 21:00 03/02/19 06:10 Novolog SQ 7 unit ACHS HELEN Administration Protocol Insulin Detemir 35 unit 03/02/19 09:00 03/02/19 09:42 Levemir SQ 35 unit DAILY HELEN Administration Lamotrigine 100 mg 03/01/19 21:00 03/01/19 21:08 Lamictal PO 100 mg HS@2100 HELEN Administration Metoprolol Tartrate 25 mg 03/01/19 21:00 03/02/19 09:42 Lopressor PO 25 mg BID HELEN Administration Pantoprazole Sodium 40 mg 03/02/19 07:30 03/02/19 06:10 Protonix PO 40 mg AC-BRKFST HELEN Administration Potassium Chloride 20 meq 03/01/19 21:00 03/02/19 09:42 K-Dur 20 PO 20 meq BID HELEN Administration Risperidone 4 mg 03/01/19 21:00 03/01/19 21:09 Risperdal PO 4 mg HS HELEN Administration Sertraline HCl 50 mg 03/02/19 09:00 03/02/19 09:42 Zoloft PO 50 mg DAILY HELEN Administration Intake and Output 03/01/19 03/02/19 03/02/19 22:59 06:59 14:59 Intake Total 240 600 360 Output Total 450 500 Balance -210 100 360 Intake: Oral 240 600 360 Output: Urine 450 500 Other: Voiding Method Toilet Toilet Urinal Urinal Weight 121.1 kg 03/02/19 06:32 03/02/19 06:32 Assessment and Plan Assessment: Assessment #1 congestive heart failure exacerbation secondary to diastole dysfunction, acute on chronic #2 chronic renal failure seems to be stable #3 diabetes type 2 #4 history of bipolar disorder #5 multiple comorbid conditions Plan #1 recent echo showed normal LV function with mild MR and mild TR #2 agree to keep the patient on the current dose of IV Lasix #3 continue monitor the kidney function and electrolytes every day #4 no need to repeat the echocardiogram #5 severe/occlusive PAD to be ruled out probably as an outpatient Thank you for allowing us participate in his care and we will continue following up with him
[2019-03-02 11:40] LABS: Glucose,Whole Blood 330 mg/dL (75-99)
[2019-03-02 12:01] VITALS: BMI 39.4
--- NOTE | 2019-03-02 14:44 | P.NPCON ---
History of Present Illness - Reason for Consult acute renal failure - History of Present Illness Reason for consultation: Acute kidney injury on chronic kidney disease History of present illness: Patient is a 58-year-old male seen in consultation for acute kidney injury on chronic kidney disease. Patient has chronic kidney disease stage III with baseline creatinine near 1.5 secondary to cardiorenal syndrome and diabetic kidney disease. Patient was admitted last month with severe edema and required Lasix drip for several days. He was discharged home on Lasix 40 mg orally twice daily along with metolazone. Patient states he's been compliant with his medications. He states he has gained about 10-12 pounds over the last 2-3 weeks. He does get dyspneic with exertion. Currently he is maintained on IV Lasix 40 mg 3 times daily. Urine output is good. No hematuria or dysuria. Denies use of nonsteroidals. No vomiting or diarrhea. Appetite is good. Hemodynamically stable. Vital signs are stable. General: The patient appeared well nourished and normally developed. HEENT: Head exam is unremarkable. Neck is without jugular venous distension. LUNGS: Breath sounds decreased. HEART: Rate and Rhythm are regular. First and second heart sounds normal. No murmurs, rubs or gallops. ABDOMEN: Abdominal exam reveals normal bowel sounds. Non-tender. Obese. EXTREMITITES: 2+ edema. Past Medical History Past Medical History: Heart Failure, Diabetes Mellitus, Hyperlipidemia, Hypertension, Neurologic Disorder Additional Past Medical History / Comment(s): IDDM type II, PVD, recent gangrene L great toe with amputation, 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 Kidney insufficiency History of Any Multi-Drug Resistant Organisms: None Reported Past Surgical History: Adenoidectomy, Tonsillectomy Additional Past Surgical History / Comment(s): L great toe amputation, L 5th toe amputation, L writst laceration repair, colonoscopy with benign polypectomies Past Anesthesia/Blood Transfusion Reactions: No Reported Reaction Past Psychological History: Anxiety, Bipolar, Depression Additional Psychological History / Comment(s): Pt resides with his parents. He currently is independent He has had a recent suicide attempt by cutting L wrist and was admitted to [facility]. He states he no longer feels suicidal. stopped smoking about three years ago. Denies significant alcohol or recreational drug use. His parents are highly involved Smoking Status: Former smoker Past Alcohol Use History: None Reported Additional Past Alcohol Use History / Comment(s): Pt started smoking in 1975 and quit in 2015. Past Drug Use History: None Reported - Past Family History Father Family Medical History: Diabetes Mellitus Additional Family Medical History / Comment(s): Father had gallbladder disease. He is 77yrs old. Mother Family Medical History: Hyperlipidemia, Hypertension Medications and Allergies Home Medications Medication Instructions Recorded Confirmed Type Atorvastatin [Lipitor] 80 mg PO HS 30 Days #30 tab 01/19/19 03/01/19 Rx Furosemide [Lasix] 40 mg PO BID #14 tablet 01/19/19 03/01/19 Rx Metoprolol Tartrate [Lopressor] 25 mg PO BID 30 Days #60 tab 01/19/19 03/01/19 Rx lamoTRIgine [LaMICtal] 100 mg PO HS@2100 01/20/19 03/01/19 History Insulin Glargine,Hum.rec.anlog 35 unit SQ DAILY 01/29/19 03/01/19 History [Lantus Solostar] Aspirin 81 mg PO DAILY #30 chew 02/11/19 03/01/19 Rx Potassium Chloride ER [K-Dur 20] 20 meq PO BID #60 tab.er.prt 02/11/19 03/01/19 Rx Insulin Aspart [NovoLOG Flexpen] 5 units SQ AC-SUPPER 03/01/19 03/01/19 History Metolazone [Zaroxolyn] 5 mg PO DAILY 03/01/19 03/01/19 History Sertraline [Zoloft] 50 mg PO DAILY 03/01/19 03/01/19 History risperiDONE 4 mg PO HS 03/01/19 03/01/19 History Allergies Allergy/AdvReac Type Severity Reaction Status Date / Time No Known Allergies Allergy Verified 03/01/19 11:31 Physical Exam Vitals: Vital Signs Temp Pulse Pulse Resp BP BP Pulse Ox 03/02/19 11:35 97.4 F L 64 16 110/63 95 03/02/19 08:00 97.3 F L 81 16 101/55 100 03/02/19 04:00 97.3 F L 81 18 112/69 91 L 03/02/19 03:30 79 18 06/18/19 00:00 83 17 113/73 98 03/01/19 20:00 97.5 F L 92 18 123/65 100 03/01/19 16:00 84 18 03/01/19 15:22 98.1 F 84 18 99/51 98 Intake and Output 03/01/19 03/02/19 03/02/19 22:59 06:59 14:59 Intake Total 240 600 590 Output Total 450 500 Balance -210 100 590 Intake: Intake, IV Titration 50 Amount cefTRIAXone 1 gm In 50 Sodium Chloride 0.9% 50 ml @ 100 mls/hr IVPB Q24HR [facility] Rx#:[id number] Oral 240 600 540 Output: Urine 450 500 Other: Voiding Method Toilet Toilet Urinal Urinal # Voids 2 Weight 121.1 kg 121.1 kg Results - Lab Results Most recent lab results Calcium 8.5 mg/dL (8.4-10.2) 03/02/19 06:32 Phosphorus 5.5 mg/dL (2.5-4.5) H 03/01/19 11:35 Magnesium 2.5 mg/dL (1.6-2.3) H 03/01/19 11:35 03/02/19 06:32 03/02/19 06:32 Assessment and Plan Plan: Assessment: 1. Acute kidney injury mostly prerenal secondary to cardiorenal syndrome. Creatinine 1.95 today. 2. Chronic kidney disease stage III secondary to diabetic kidney disease and cardiorenal syndrome. Recent creatinine in the range of 1.3-1.6. 3. Volume overload. 4. Diastolic CHF. 5. Diabetes mellitus. 6. Hypervolemic hyponatremia. Plan: Maintain IV Lasix 40 mg 3 times daily. Add metolazone 5 mg once daily. Low-salt diet and 1500 mL fluid restriction. Maintain potassium supplementation. Repeat electrolytes in the morning. Daily weights. Thank you for the consultation. I will continue to follow the patient with you during his hospital stay.
[2019-03-02] MEDS: METOLAZONE 5 MG TAB PO SCH (15:07)
[2019-03-02] MEDS ORDERED: OLANZapine 10 MG TAB PO ONE (15:15)
[2019-03-02 17:17] LABS: Glucose,Whole Blood 360 mg/dL (75-99)
--- NOTE | 2019-03-02 20:57 | PN ---
PROGRESS NOTE DATE OF SERVICE: 03/02/2019. This 58-year-old gentleman admitted to the hospital with CHF acute exacerbation found to have significant skin lesion also. The patient medications, psych medications were recently adjusted. The patient also has history of suicide attempt also. The patient also had renal failure. Patient being closely monitored. PAST MEDICAL HISTORY: Reviewed. REVIEW OF SYSTEMS: Cardiovascular system: As mentioned earlier. Respiration: As mentioned earlier. GI no nausea or vomiting. : No dysuria. Nervous System: No numbness or weakness. Dermatology: As mentioned earlier. CURRENT MEDICATIONS: Reviewed and include: 1. [place] 5 mg q.6h p.r.n. 2. Aspirin 81 mg daily. 3. Lipitor 80 mg. 4. Rocephin 1 g daily. 5. Lasix 40 mg IV. 6. Heparin 5000 subcu b.i.d. 7. NovoLog scale. 8. Levemir 45 units subcu daily. 9. Lamictal 100 mg p.o. daily. 10.Zaroxolyn 5 mg daily. 11.Lopressor 25 mg p.o. b.i.d. 12.Zyprexa 10 mg p.o. b.i.d. 13.Protonix 40 mg p.o. with breakfast. 15.Zoloft 50 mg p.o. daily. PHYSICAL EXAM: Patient is alert and oriented times three. Pulse 64. Blood pressure 120/63, respirations 16, temp 97.4, pulse ox 94% on room air. Conjunctivae normal. Significant facial puffiness and generalized edema also present. Significant dry skin also present, especially around the eyes and also even on the trunk also. Neck is jugular venous distention at the root. Cardiovascular: S1, S2 muffled. No S3, no S4. Respirations: Breath sounds diminished in the bases. Bilateral scattered rhonchi and crackles. ABDOMEN: Soft, obese, nontender. Legs: Bilateral leg edema. Scrotal edema also present which is better compared to last admission. NERVOUS SYSTEM: No focal deficits. SKIN as mentioned earlier. LABS: WBC 6.2, hemoglobin 9.9, sodium 132, potassium 4.8, creatinine is 1.95, glucose is 279, 330, 360. ASSESSMENT: 1. Congestive heart failure acute exacerbation with acute on chronic diastolic dysfunction, ejection fraction 50-55 percent. 2. Chronic renal failure stage III. 3. History of cardiorenal syndrome. 4. History of scrotal edema. 5. History of facial edema as well as dry skin. 6. Bilateral foot infection and cellulitis and gangrene. 7. History of amputation of the toes of the left foot. 8. Elevated lactic acid, possibly multifactorial. 9. Increased WBC. 10.Anemia, normocytic. 11.History of congestive heart failure. 12.Diabetes type 2. 13.Hypertension. 14.Hyperlipidemia. 15.History of recent suicidal attempt by laceration of the left wrist. 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 17.History of insomnia. 18.History of bipolar depression, anxiety. 19.Remote history of nicotine dependence. 20.Obesity with body mass index of 39. RECOMMENDATIONS AND DISCUSSION: In this 58-year-old gentleman who presented with multiple complex medical issues, we will monitor the patient closely, continue the current medications, management and symptomatic treatment. Continue with IV Lasix. Monitor fluid and electrolytes balance closely. Monitor creatinine closely. p.o. fluid intake. The patient is on multiple medications and dermatology has recommended outpatient followup because apparently they need [facility] clearance. Further recommendations to follow. The prognosis guarded because of multiple complex medical issues. Further recommendations to follow. Blood sugars also been elevated. I would recommend increase the dose of Levemir and check a hemoglobin A1c also. Further recommendations to follow. See orders for details. MMODL / IJN: [id number] / MTDD
--- NOTE | 2019-03-02 21:00 | CONS ---
CONSULTATION DATE OF SERVICE: 03/02/2019 PURPOSE FOR CONSULTATION: Evaluate for mood disorder and history of suicidality. HISTORY OF PRESENTING ILLNESS: The patient is a 58-year-old male. He was admitted to the medical floor for symptoms related to congestive heart failure. He has a long history of medical complications. He had a medical admission and follow-up psychiatric hospitalization in early January due to a suicide attempt where he seriously lacerated his left wrist. The patient describes a long history of psychiatric difficulties. It is difficult to clarify specifics, as he had difficulties relating his history. The best I was able to tell is that he has had auditory hallucinations most of his adult life. He described hallucinations as voices that generally are "soothing." He had not had a prior psychiatric hospitalization before his admission in January. In January he was diagnosed with bipolar affective disorder, depressed, and question of PTSD. It is noted that there was not documentation specific to symptoms related to bipolar disorder or PTSD. He has had long-term problems with depression and low self-esteem. The patient himself tells me he has struggled with social function and has much difficulty getting out into any public setting. He describes as currently he lives with his parents and that his preference is to be in his room with shades closed. He likes dark curtains to black out all the light. He says he does not like to go out doors. He says he gets anxious and panicky when he is around people. He has had limited social functioning. He does report working, though he did not describe much detail regarding that. Previous records indicated that he has been very limited in interpersonal relationships. During his psychiatric hospitalization in January, it was documented that he was taking Xanax, though there were no details regarding the extent of his use of Xanax. Also there was no documentation of substance use history. The patient did indicate that he smoked marijuana in the past. He did not believe that he had any significant substance use issues in the past. He reports no use of abusive substances at present and has not used marijuana, drunk alcohol or used any other drugs in many years. His current situation is that he does report feeling distressed, though it is difficult to be clear what the specifics are. My understanding is that there are some stress issues at home, as he relies on his parents, who watch over his medications and also provide support in other ways. There is some suggestion that he may have a contentious relationship with his mother. He says that he recently just moved back in with his parents. He has been quite isolated in his life in recent years. He continues to report that he has auditory hallucinations; in addition he can fairly clearly describe paranoid feelings. He will talk about fears he has if anyone was behind him and talking. He says that that will set off panic for him. He has fears that people are outside his window looking in. He has experienced that people may be plotting or threatening him. The best I am able to tell, these experiences have been present much of his adult life. 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 He did not describe any traumatic events related to his experience. He also did not describe any traumatic events in general in his life. He did say it was very difficult for him when he was and his left him. Apparently he had 2 possibly brief marriages. He could not describe particulars as to what the trauma was. He denies any thoughts of self-harm currently, though acknowledges that he had a serious effort to end his life in December when he cut his wrist and subsequently was admitted to the psychiatric unit. Upon discharge, he was prescribed Lamictal 100 mg a day, Invega 6 mg a day and clonidine 0.1 mg twice a day. According to the records, the clonidine was indicated for PTSD, though again there were no specifics related to that. He previously had been on Zoloft, which was discontinued, as was tramadol. Currently his home medications are listed as Zoloft 50 mg a day, Lamictal 100 mg a day and Risperdal 4 mg a day. He has been started on Xanax 0.25 mg 3 times a day p.r.n. since he has been on the psychiatric unit. MENTAL STATUS EXAMINATION: Patient gave fairly good eye contact. He was quite restless. He answered questions with appropriate responses, though often he would veer off and become quite tangential. At times it was hard to follow his train of thought. He would have some rambling about things in the past. He would respond to redirection to get back on task. He would answer questions appropriately. His affect was somewhat intense. He had a friendly manner though also seemed quite anxious. His mood was somewhat down. It is noted that the patient himself says that he has had a lot of problems with depression, though he hides it from most people, and suggested that he continues in that manner currently. He did seem to be dysphoric in mood. He was moderately distressed. He clearly suggested paranoid delusions and noted auditory hallucinations that are persistent. Cognition was clear. ASSESSMENT: This 58-year-old male is diagnosed with schizophrenia. There may be other diagnostic considerations. However, given the history the patient presented, the struggles he has had in social function and the range of symptoms he had had most of his adult life are suggestive of a chronic psychotic illness. He does not describe specific episodes that would meet criteria for bipolar disorder. He has had underlying depression, which he also seems to tie into struggles he has had with thought disorder. At this point, I will discontinue Risperdal and start the patient on Zyprexa 10 mg twice a day. Zyprexa at 20 mg a day is a generally assertive therapeutic dose for thought disorder. Also Zyprexa may be helpful to reduce physiologic stress response relating to high anxiety issues. I will discontinue Xanax, which would have a number of risks for the patient, including problems with interfering with cognitive function. Also Xanax puts him at risk for motor function and, given the problems he has with his feet, he is at risk for falls. I will continue Zoloft. I reviewed medication issues with the patient. I will continue to follow up. PRABHAKAR / ALYCIAN: [id number] /
[2019-03-02 21:05] LABS: Glucose,Whole Blood 238 mg/dL (75-99)
[2019-03-02] MEDS: ATORVASTATIN 80 MG TAB PO SCH (21:50)
[2019-03-02] MEDS: lamoTRIgine 100 MG TAB PO SCH (21:52)
[2019-03-02] MEDS: OLANZapine 10 MG TAB PO SCH (21:52)
[2019-03-02 23:01] LABS: Appearance,Urine Clear (Clear); Bilirubin,Urine Negative (Negative); Blood,Urine Negative (Negative); Color,Urine Light Yellow; Glucose,Urine (UA) Negative (Negative); Ketones,Urine Negative (Negative); Leukocyte Esterase,Urine Negative (Negative); Nitrite,Urine Negative (Negative); Protein,Urine Negative (Negative); Specific Gravity,Urine 1.008 (1.001-1.035); Urobilinogen,Urine <2.0 mg/dL (<2.0)
--- NOTE | 2019-03-03 00:10 | P.CONS ---
History of Present Illness - Reason for Consult Consult date: 03/02/19 - Chief Complaint edema - History of Present Illness 58-year-old male with multiple medical troubles including diabetes peripheral vascular disease and is a relates to difficulties with mental illness in had a suicide attempt with injury to his left arm.The patient underwent surgical repair to the left wrist lacerations. He has been released from the psychiatric unit with improvement of his condition after medication changes. He overspending having increasing amounts of edema with progressive scrotal and lower extremity edema. He was in the emergency center last week with evidence of the scrotal edema. No evidence of any hydrocele or strangulation was noted was referred back to his primary care physician for his ongoing and worsening edema. The patient apparently has not been able to see his primary care physician. He also was not seen by nephrology in the outpatient clinic. His edema continued to worsen. His skin beginning to flaky became more erythematous and more uncomfortable. He presented to the wound center at that point in time there was evidence of some worsening of his status was advised to contact his primary care physician and consider a visit to the emergency center. The total amputation site of the right great toe as well as eschar to left great toe will need further care. The patient continues to have ongoing significant anxiety issues and is being evaluated by psychiatry. It appears that he may have a undiagnosed schizophrenia. The patient is quite miserable because of his edema. Review of Systems Patient feels very poorly he edema and worsening skin rash HEENT:Denies headache or acute visual change. Denies sinus or mouth discomforts. Denies neck stiffness or pain. Denies significant oral cavity pain. Denies difficulty on swallowing. Lungs: Positive shortness of breath minimal coughand production or hemoptysis Cardiovascular: Does not have chest pain but has shortness of breath, has dyspnea on exertion has orthopnea but no syncope Gastrointestinal:Denies nausea, vomiting, diarrhea, constipation, hematemesis, melena, hematochezia. No no significant change of bowel habit noticed. Musculoskeletal: denies significant myalgias or arthralgias. No new joint swelling. Denies new back pain. Skin: Worsening lower extremities increasing edema and blistering generalized erythematous rash Neuro: Denies headache or visual change. Denies any new onset weakness or difficulty with ambulation. Denies falls or seizures. 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 Kidney insufficiency History of Any Multi-Drug Resistant Organisms: None Reported Past Surgical History: Adenoidectomy, Tonsillectomy Additional Past Surgical History / Comment(s): L great toe amputation, L 5th toe amputation, L writst laceration repair, colonoscopy with benign polypectomies Past Anesthesia/Blood Transfusion Reactions: No Reported Reaction Past Psychological History: Anxiety, Bipolar, Depression Additional Psychological History / Comment(s): Pt resides with his parents. He currently is independent He has had a recent suicide attempt by cutting L wrist and was admitted to [facility]. He states he no longer feels suicidal. stopped smoking about three years ago. Denies significant alcohol or recreational drug use. His parents are highly involved Smoking Status: Former smoker Past Alcohol Use History: None Reported Additional Past Alcohol Use History / Comment(s): Pt started smoking in 1975 and quit in 2016. Past Drug Use History: None Reported - Past Family History Father Family Medical History: Diabetes Mellitus Additional Family Medical History / Comment(s): Father had gallbladder disease. He is 77yrs old. Mother Family Medical History: Hyperlipidemia, Hypertension Medications and Allergies Home Medications and Allergies Comment(s): Current Medications Hydrocodone Bitart/Acetaminophen ([place] 5-325) 1 each PO Q6HR PRN PRN Reason: Pain Aspirin (Aspirin) 81 mg PO DAILY HELEN Last Admin: 03/02/19 09:42 Dose: 81 mg Documented by: Atorvastatin Calcium (Lipitor) 80 mg PO HS HELEN Last Admin: 03/02/19 21:50 Dose: 80 mg Documented by: Furosemide (Lasix) 40 mg IV Q8H HELEN Last Admin: 03/02/19 21:51 Dose: 40 mg Documented by: Heparin Sodium (Porcine) (Heparin) 5,000 unit SQ Q12HR [facility]EN Last Admin: 03/02/19 21:51 Dose: 5,000 unit Documented by: Ceftriaxone Sodium 1 gm/ (Sodium Chloride) 50 mls @ 100 mls/hr IVPB Q24HR [facility] Last Admin: 03/02/19 09:43 Dose: 100 mls/hr Documented by: Insulin Aspart (Novolog) 0 unit SQ ACHS [facility]; Protocol Last Admin: 03/02/19 21:50 Dose: 5 unit Documented by: Insulin Detemir (Levemir) 45 unit SQ DAILY [facility] Lamotrigine (Lamictal) 100 mg PO HS@2100 [facility] Last Admin: 03/02/19 21:52 Dose: 100 mg Documented by: Metolazone (Zaroxolyn) 5 mg PO DAILY [facility] Last Admin: 03/02/19 15:07 Dose: 5 mg Documented by: Metoprolol Tartrate (Lopressor) 25 mg PO BID [facility] Last Admin: 03/02/19 21:52 Dose: 25 mg Documented by: Olanzapine (Zyprexa) 10 mg PO BID [facility] Last Admin: 03/02/19 21:52 Dose: 10 mg Documented by: Pantoprazole Sodium (Protonix) 40 mg PO AC-BRKFST [facility] Last Admin: 03/02/19 06:10 Dose: 40 mg Documented by: Potassium Chloride (K-Dur 20) 20 meq PO BID [facility] Last Admin: 03/02/19 21:51 Dose: 20 meq Documented by: Sertraline HCl (Zoloft) 50 mg PO DAILY [facility] Last Admin: 03/02/19 09:42 Dose: 50 mg Documented by: Home Medications Medication Instructions Recorded Confirmed Type Atorvastatin [Lipitor] 80 mg PO HS 30 Days #30 tab 01/19/19 03/01/19 Rx Furosemide [Lasix] 40 mg PO BID #14 tablet 01/19/19 03/01/19 Rx Metoprolol Tartrate [Lopressor] 25 mg PO BID 30 Days #60 tab 01/19/19 03/01/19 Rx lamoTRIgine [LaMICtal] 100 mg PO HS@2100 01/20/19 03/01/19 History Insulin Glargine,Hum.rec.anlog 35 unit SQ DAILY 01/29/19 03/01/19 History [Lantus Solostar] Aspirin 81 mg PO DAILY #30 chew 02/11/19 03/01/19 Rx Potassium Chloride ER [K-Dur 20] 20 meq PO BID #60 tab.er.prt 02/11/19 03/01/19 Rx Insulin Aspart [NovoLOG Flexpen] 5 units SQ AC-SUPPER 03/01/19 03/01/19 History Metolazone [Zaroxolyn] 5 mg PO DAILY 03/01/19 03/01/19 History Sertraline [Zoloft] 50 mg PO DAILY 03/01/19 03/01/19 History risperiDONE 4 mg PO HS 03/01/19 03/01/19 History Allergies Allergy/AdvReac Type Severity Reaction Status Date / Time No Known Allergies Allergy Verified 03/01/19 11:31 Physical Exam Vitals: Vital Signs Temp Pulse Resp BP Pulse Ox 03/02/19 15:31 97.8 F 77 16 112/69 98 03/02/19 11:35 97.4 F L 64 16 110/63 95 03/02/19 08:00 97.3 F L 81 16 101/55 100 03/02/19 04:00 97.3 F L 81 18 112/69 91 L 03/02/19 03:30 79 18 03/02/19 00:00 83 17 113/73 98 Intake and Output 03/02/19 03/02/19 03/03/19 14:59 22:59 06:59 Intake Total 590 240 Output Total 900 Balance 590 -660 Intake: Intake, IV Titration 50 Amount cefTRIAXone 1 gm In 50 Sodium Chloride 0.9% 50 ml @ 100 mls/hr IVPB Q24HR [facility] Rx#:[id number] Oral 540 240 Output: Urine 900 Other: # Voids 2 Weight 121.1 kg Obese 58-year-old male who is a some mild shortness of breath at rest and is very anxious because of his significant swelling and edema. HEENT: Anicteric conjunctiva are pink and moist nasal mucosa grossly intact without significant lesions, there is no thrush. Neck: The neck is supple without significant lymphadenopathy or thyromegaly. Lungs: Symmetrical air entry is noted basilar crackles are noted expiratory wheezing is heard no bronchial sounds dullness or egophony Heart: Irregular with a positive S4 no murmur click or rub PMI is nondisplaced Abdomen: Obese Positive bowel sounds soft and nontender without palpable masses or organomegaly. There was no guarding or rebound. Extremities: The upper extremities have no open lesions IV site is intact. Lower extremities show evidence of the bilateral edema with some improvement the scrotal e There is no evidence of any skin breakdown at this time. the right foot shows evidence of the eschar which appears to be somewhat superficial with pink tissue beneath The ulceration to left great toe status post the distal amputation as noted. Neuro: Awake alert oriented to person place and time. as noted has significant anxiety ,and relates to auditory hallucinations that help calm him Results CBC & Chem 7: 03/02/19 06:32 03/02/19 06:32 Labs: Abnormal Lab Results - Last 24 Hours (Table) 03/02/19 03/02/19 03/02/19 Range/Units 06:04 06:32 06:32 RBC 3.74 L (4.30-5.90) m/uL Hgb 9.9 L (13.0-17.5) gm/dL Hct 32.3 L (39.0-53.0) % MCHC 30.5 L (31.0-37.0) g/dL RDW 17.2 H (11.5-15.5) % Sodium 132 L (137-145) mmol/L Chloride 97 L (98-107) mmol/L BUN 79 H (9-20) mg/dL Creatinine 1.95 H (0.66-1.25) mg/dL Glucose 279 H (74-99) mg/dL POC Glucose (mg/dL) 291 H (75-99) mg/dL 03/02/19 03/02/19 03/02/19 Range/Units 11:34 17:12 21:04 RBC (4.30-5.90) m/uL Hgb (13.0-17.5) gm/dL Hct (39.0-53.0) % MCHC (31.0-37.0) g/dL RDW (11.5-15.5) % Sodium (137-145) mmol/L Chloride (98-107) mmol/L BUN (9-20) mg/dL Creatinine (0.66-1.25) mg/dL Glucose (74-99) mg/dL POC Glucose (mg/dL) 330 H 360 H 238 H (75-99) mg/dL Laboratory Results WBC 6.7 k/uL (3.8-10.6) 03/02/19 06:32 RBC 3.74 m/uL (4.30-5.90) L 03/02/19 06:32 Hgb 9.9 gm/dL (13.0-17.5) L 03/02/19 06:32 Hct 32.3 % (39.0-53.0) L 03/02/19 06:32 MCV 86.6 fL (80.0-100.0) 03/02/19 06:32 MCH 26.4 pg (25.0-35.0) 03/02/19 06:32 MCHC 30.5 g/dL (31.0-37.0) L 03/02/19 06:32 RDW 17.2 % (11.5-15.5) H 03/02/19 06:32 Plt Count 358 k/uL (150-450) 03/02/19 06:32 Neutrophils % 72 % 03/02/19 06:32 Lymphocytes % 17 % 03/02/19 06:32 Monocytes % 7 % 03/02/19 06:32 Eosinophils % 1 % 03/02/19 06:32 Basophils % 1 % 03/02/19 06:32 Neutrophils # 4.8 k/uL (1.3-7.7) 03/02/19 06:32 Lymphocytes # 1.1 k/uL (1.0-4.8) 03/02/19 06:32 Monocytes # 0.5 k/uL (0-1.0) 03/02/19 06:32 Eosinophils # 0.0 k/uL (0-0.7) 03/02/19 06:32 Basophils # 0.1 k/uL (0-0.2) 03/02/19 06:32 Hypochromasia Marked 03/02/19 06:32 Anisocytosis Slight 03/02/19 06:32 PT 11.0 sec (9.0-12.0) 03/01/19 11:35 INR 1.0 (<1.2) 03/01/19 11:35 APTT 28.6 sec (22.0-30.0) 03/01/19 11:35 Sodium 132 mmol/L (137-145) L 03/02/19 06:32 Potassium 4.8 mmol/L (3.5-5.1) 03/02/19 06:32 Chloride 97 mmol/L (98-107) L 03/02/19 06:32 Carbon Dioxide 23 mmol/L (22-30) 03/02/19 06:32 Anion Gap 12 mmol/L 03/02/19 06:32 BUN 79 mg/dL (9-20) H 03/02/19 06:32 Creatinine 1.95 mg/dL (0.66-1.25) H 03/02/19 06:32 Est GFR (CKD-EPI)AfAm 43 (>60 ml/min/1.73 sqM) 03/02/19 06:32 Est GFR (CKD-EPI)NonAf 37 (>60 ml/min/1.73 sqM) 03/02/19 06:32 Glucose 279 mg/dL (74-99) H 03/02/19 06:32 POC Glucose (mg/dL) 238 mg/dL (75-99) H 03/02/19 21:04 POC Glu [employer] Nahomi Jennings 03/02/19 21:04 Lactic Ac Sepsis Rflx Y 03/01/19 12:19 Plasma Lactic Acid [place] 2.2 mmol/L (0.7-2.0) H* 03/01/19 16:58 Calcium 8.5 mg/dL (8.4-10.2) 03/02/19 06:32 Phosphorus 5.5 mg/dL (2.5-4.5) H 03/01/19 11:35 Magnesium 2.5 mg/dL (1.6-2.3) H 03/01/19 11:35 Total Bilirubin 0.5 mg/dL (0.2-1.3) 03/01/19 11:35 AST 19 U/L (17-59) 03/01/19 11:35 ALT 19 U/L (21-72) L 03/01/19 11:35 Alkaline Phosphatase 100 U/L (38-126) 03/01/19 11:35 Troponin I 0.018 ng/mL (0.000-0.034) 03/01/19 11:35 Total Protein 5.9 g/dL (6.3-8.2) L 03/01/19 11:35 Albumin 3.1 g/dL (3.5-5.0) L 03/01/19 11:35 Urine Color Light Yellow 03/02/19 22:45 Urine Appearance Clear (Clear) 03/02/19 22:45 Urine pH 5.0 (5.0-8.0) 03/02/19 22:45 Ur Specific [place] 1.008 (1.001-1.035) 03/02/19 22:45 Urine Protein Negative (Negative) 03/02/19 22:45 Urine Glucose (UA) Negative (Negative) 03/02/19 22:45 Urine Ketones Negative (Negative) 03/02/19 22:45 Urine Blood Negative (Negative) 03/02/19 22:45 Urine Nitrite Negative (Negative) 03/02/19 22:45 Urine Bilirubin Negative (Negative) 03/02/19 22:45 Urine Urobilinogen <2.0 mg/dL (<2.0) 03/02/19 22:45 Ur Leukocyte Esterase Negative (Negative) 03/02/19 22:45 Abdominal x-ray: report reviewed (mild congestion no pneumonic infiltrate) Assessment and Plan (1) CHF (congestive heart failure) Current Visit: Yes Status: Acute Code(s): I50.9 - HEART FAILURE, UNSPECIFIED SNOMED Code(s): 57389775 (2) Renal insufficiency Current Visit: Yes Status: Acute Code(s): N28.9 - DISORDER OF KIDNEY AND URETER, UNSPECIFIED SNOMED Code(s): 344681620 (3) Diabetic ulcer of left foot associated with diabetes mellitus due to underlying condition, with bone involvement without evidence of necrosis Narrative/Plan: 58-year-old male who has multiple medical troubles include underlying psychiatric difficulties with recent suicide attempt. He has been seen by psychiatry today and hopefully with some medication changes are to be some improvement in his status. The patient does not relate his suicidal ideation at this time. He was in the outpatient clinic is evidence of this diffuse rash is macular in nature with dry flaking skin. A fixed drug eruption is of concern. Will provide Zyrtec with steroid therapy to determine if this can allow some relief of the significant rash. Topical steroid can be applied to the areas. If it is not improved may need skin biopsy for further diagnosis. The amputation to the left great toe is noted in his and give ongoing wound care. There is eschar to the right great toe that also is in need of some care. vascular surgery apparently will be reevaluating. Current Visit: No Status: Acute Code(s): E08.621 - DIABETES MELLITUS DUE TO UNDERLYING CONDITION W FOOT ULCER; L97.526 - NON-PRS CHR ULC OTH PRT L FOOT WITH BNE INVL W/O EVD OF NECR SNOMED Code(s): 376174576
[2019-03-03 05:52] LABS: Glucose,Whole Blood 159 mg/dL (75-99)
[2019-03-03] MEDS: INSULIN ASPART (NovoLOG) 100 UNIT/ML VIAL SQ SCH ×4 (05:58→22:18)
[2019-03-03] MEDS: PANTOPRAZOLE 40 MG TABLET PO SCH (05:58)
[2019-03-03] MEDS: FUROSEMIDE 10 MG/ML 4 ML VIAL IV SCH (05:58)
[2019-03-03 07:00] LABS: Anisocytosis Slight; Basophils # (A) 0.1 k/uL (0-0.2); Basophils % (A) 1 %; Eosinophils # (A) 1.7 k/uL (0-0.7); Eosinophils % (A) 16 %; HCT 34.6 % (39.0-53.0); HGB 10.5 gm/dL (13.0-17.5); Hypochromasia Marked; Lymphocytes # (A) 1.2 k/uL (1.0-4.8); Lymphocytes % (A) 11 %; MCH 25.7 pg (25.0-35.0); MCHC 30.3 g/dL (31.0-37.0); MCV 84.8 fL (80.0-100.0); Mean Platelet Volume 7.1; Monocytes # (A) 0.5 k/uL (0-1.0); Monocytes % (A) 4 %; Neutrophils # (A) 6.9 k/uL (1.3-7.7); Neutrophils % (A) 66 %; Platelet Count 429 k/uL (150-450); RBC 4.08 m/uL (4.30-5.90); RDW 17.6 % (11.5-15.5); WBC 10.4 k/uL (3.8-10.6)
[2019-03-03 07:13] LABS: Calcium 8.9 mg/dL (8.4-10.2); Magnesium 2.3 mg/dL (1.6-2.3); Potassium 4.2 mmol/L (3.5-5.1)
[2019-03-03] MEDS: OLANZapine 10 MG TAB PO SCH (08:14)
[2019-03-03] MEDS: HEPARIN SODIUM,PORCINE 5,000 UNIT/ML 1 ML VIAL SQ SCH ×2 (08:14→22:17)
[2019-03-03] MEDS: POTASSIUM CHLORIDE ER 20 MEQ TAB.ER PO SCH ×2 (08:14→22:17)
[2019-03-03] MEDS: METOPROLOL TARTRATE 25 MG TAB PO SCH ×2 (08:14→22:16)
[2019-03-03] MEDS: METOLAZONE 5 MG TAB PO SCH (08:14)
[2019-03-03] MEDS: ASPIRIN 81 MG PO SCH (08:14)
[2019-03-03] MEDS: SERTRALINE 50 MG TAB PO SCH (08:14)
[2019-03-03] MEDS: INSULIN DETEMIR (LEVEMIR) 100 UNIT/ML SYR SQ SCH (08:30)
--- NOTE | 2019-03-03 10:59 | P.PN ---
Subjective Patient is seen in follow-up for acute kidney injury and chronic any disease. Patient has chronic kidney disease stage III with baseline creatinine near 1.5 secondary to cardiorenal syndrome and diabetic kidney disease. Currently maintained on Lasix 40 mg IV 3 times daily. Urine output is not accurate as he is not using the urinal at bedside. Still quite edematous. Oral intake is good. No vomiting or diarrhea. Vital signs are stable. General: The patient appeared well nourished and normally developed. HEENT: Head exam is unremarkable. Neck is without jugular venous distension. LUNGS: Lungs are clear to auscultation and percussion. Breath sounds decreased. HEART: Rate and Rhythm are regular. First and second heart sounds normal. No murmurs, rubs or gallops. ABDOMEN: Abdominal exam reveals normal bowel sounds. Non-tender. Obese. EXTREMITITES: 2+ edema. Objective - Vital Signs Vital signs: Vital Signs Temp 98.2 F 03/03/19 07:21 Pulse 86 03/03/19 07:21 Resp 18 03/03/19 07:21 BP 112/63 03/03/19 07:21 Pulse Ox 96 03/03/19 07:21 Intake & Output 03/02/19 03/03/19 03/03/19 18:59 06:59 18:59 Intake Total 830 240 Output Total 1550 Balance 830 -1550 240 Weight 121.1 kg 120.5 kg Intake: Intake, IV Titration 50 Amount cefTRIAXone 1 gm In 50 Sodium Chloride 0.9% 50 ml @ 100 mls/hr IVPB Q24HR [facility]AC[facility] Rx#:[id number] Oral 780 240 Output: Urine 1550 Other: Voiding Method Toilet Urinal # Voids 2 - Labs CBC & Chem 7: 03/03/19 06:02 03/03/19 06:02 Labs: Abnormal Lab Results - Last 24 Hours (Table) 03/02/19 03/02/19 03/02/19 Range/Units 11:34 17:12 21:04 RBC (4.30-5.90) m/uL Hgb (13.0-17.5) gm/dL Hct (39.0-53.0) % MCHC (31.0-37.0) g/dL RDW (11.5-15.5) % Eosinophils # (0-0.7) k/uL BUN (9-20) mg/dL Creatinine (0.66-1.25) mg/dL Glucose (74-99) mg/dL POC Glucose (mg/dL) 330 H 360 H 238 H (75-99) mg/dL 03/03/19 03/03/19 03/03/19 Range/Units 05:51 06:02 06:02 RBC 4.08 L (4.30-5.90) m/uL Hgb 10.5 L (13.0-17.5) gm/dL Hct 34.6 L (39.0-53.0) % MCHC 30.3 L (31.0-37.0) g/dL RDW 17.6 H (11.5-15.5) % Eosinophils # 1.7 H (0-0.7) k/uL BUN 83 H (9-20) mg/dL Creatinine 2.10 H (0.66-1.25) mg/dL Glucose 108 H (74-99) mg/dL POC Glucose (mg/dL) 159 H (75-99) mg/dL Assessment and Plan Plan: Assessment: 1. Acute kidney injury mostly prerenal secondary to cardiorenal syndrome. Creatinine 2.1 today. 2. Chronic kidney disease stage III secondary to diabetic kidney disease and cardiorenal syndrome. Recent creatinine in the range of 1.3-1.6. 3. Volume overload. 4. Diastolic CHF. 5. Diabetes mellitus. 6. Hypervolemic hyponatremia. Better. Plan: Discontinue IV push Lasix and start Lasix drip at 10 mL an hour. Maintain metolazone 5 mg once daily. Low-salt diet and 1500 mL fluid restriction. Maintain potassium supplementation. Repeat electrolytes in the morning. Daily weights. Strict I's and O's. Ok to place midline on the dominant side.
[2019-03-03 12:21] LABS: Glucose,Whole Blood 100 mg/dL (75-99)
[2019-03-03] MEDS: FUROSEMIDE 100 MG in SODIUM CHLORIDE 0.9% 90 ML IV SCH ×2 (12:46→22:16)
--- NOTE | 2019-03-03 16:13 | P.PN ---
Subjective Progress Note Date: 03/03/19 This is a 58-year-old gentleman with a past medical history significant for chronic diastolic congestive heart failure, diabetes, hypertension, dyslipidemia, and history of bipolar disorder, presented to the emergency room complaining of edema in the upper and lower extremities. The edema started about 2 weeks ago and has progressed. The patient did gain about 15 pounds within these 2 weeks. Beside that for the last 2 days he has been noticing increasing in the shortness of breath with exertion. No symptoms of chest pain or chest discomfort, dizziness, heart racing or fluttering, and no syncope. The patient does have osteomyelitis of the left foot and he underwent amputation of the left great toe and he has been followed by Dr. Mustafa. No history of coronary artery disease and prior coronary revascularization. No cardiac arrhythmia in the past. He was in the hospital in January 2018 where an echocardiogram was performed and revealed normal LV function was mild MR and mild TR and normal pulmonary artery systolic pressure. This time the chest x- ray showed findings consistent with CHF. The EKG showed sinus rhythm with low. The QRS. The rest of the blood work came in to be unremarkable except for mildly increased into creatinine which seems to be chronic. Beside that, the patient denies any fever or chills or cough. On examination, he does have extensive pitting edema of the upper and lower extremities with a component of cellulitis as well. Currently he is on Lasix IV. He stated that he was compliant with all of his medication and normally he put his medication in a box and take them everyday. Beside that he stated that he was compliant with his diet including salt intake. 03/03/2019 Patient was seen and examined this morning, initiated on IV Lasix drip today. I pressure 114/70 with a heart rate in the 80s, 95% on room air. Blood cell count 10.4, hemoglobin 10.5, platelet count 429. Sodium 137, potassium 4.2, BUN 83 and creatinine 2.1. Objective - Vital Signs Vital signs: Vital Signs Temp 98.2 F 03/03/19 07:21 Pulse 88 03/03/19 14:58 Resp 16 03/03/19 14:58 BP 114/70 03/03/19 14:58 Pulse Ox 95 03/03/19 14:58 Intake & Output 03/02/19 03/03/19 03/03/19 18:59 06:59 18:59 Intake Total 830 480 Output Total 1550 525 Balance 830 -1550 -45 Weight 121.1 kg 120.5 kg Intake: Intake, IV Titration 50 Amount cefTRIAXone 1 gm In 50 Sodium Chloride 0.9% 50 ml @ 100 mls/hr IVPB Q24HR [facility] Rx#:[id number] Oral 780 480 Output: Urine 1550 525 Other: Voiding Method Toilet Urinal # Voids 2 - Exam PHYSICAL EXAMINATION: GENERAL: 68-year-old gentleman in no acute distress at the time of my examination HEENT: Head is atraumatic, normocephalic. Pupils equal, round. Sclera anicteric. Conjunctiva are clear. Mucous membranes of the mouth are moist. Neck is supple. There is elevated jugular venous pressure. No carotid bruit is heard. HEART EXAMINATION: Heart S1 S2 1 systolic murmur is heard CHEST EXAMINATION: Lungs reveal diminished air entry to bilateral bases ABDOMEN: Soft, nontender. Bowel sounds are heard. No organomegaly noted. EXTREMITIES: 2+ peripheral pulses with evidence of peripheral edema and no calf tenderness noted. NEUROLOGIC patient is awake, alert and oriented 3 . . - Labs CBC & Chem 7: 03/03/19 06:02 03/03/19 06:02 Labs: Abnormal Lab Results - Last 24 Hours (Table) 03/02/19 03/02/19 03/03/19 Range/Units 17:12 21:04 05:51 RBC (4.30-5.90) m/uL Hgb (13.0-17.5) gm/dL Hct (39.0-53.0) % MCHC (31.0-37.0) g/dL RDW (11.5-15.5) % Eosinophils # (0-0.7) k/uL BUN (9-20) mg/dL Creatinine (0.66-1.25) mg/dL Glucose (74-99) mg/dL POC Glucose (mg/dL) 360 H 238 H 159 H (75-99) mg/dL 03/03/19 03/03/19 03/03/19 Range/Units 06:02 06:02 12:07 RBC 4.08 L (4.30-5.90) m/uL Hgb 10.5 L (13.0-17.5) gm/dL Hct 34.6 L (39.0-53.0) % MCHC 30.3 L (31.0-37.0) g/dL RDW 17.6 H (11.5-15.5) % Eosinophils # 1.7 H (0-0.7) k/uL BUN 83 H (9-20) mg/dL Creatinine 2.10 H (0.66-1.25) mg/dL Glucose 108 H (74-99) mg/dL POC Glucose (mg/dL) 100 H (75-99) mg/dL Assessment and Plan Plan: Assessment #1 congestive heart failure exacerbation secondary to diastole dysfunction, acute on chronic #2 chronic renal failure seems to be stable #3 diabetes type 2 #4 history of bipolar disorder #5 multiple comorbid conditions Plan Recent echo showed normal LV function with mild MR and mild TR. Lasix as per nephrology. Continue to monitor kidney function. Patient has severe occlusive PAD to be ruled out as an outpatient. DNP note has been reviewed, I agree with a documented findings and plan of care. Patient was seen and examined.
[2019-03-03 16:58] LABS: Glucose,Whole Blood 123 mg/dL (75-99)
--- NOTE | 2019-03-03 17:40 | PN ---
PROGRESS NOTE DATE OF SERVICE: 03/03/2019. This 58-year-old gentleman who was admitted to the hospital with CHF acute exacerbation also had renal failure. The patient also has significant generalized swelling. Patient started on Lasix drip at this time. Patient has significant skin lesions and possibility of drug reaction also being considered. Psychiatry has seen the patient. Recommended discontinue Risperdal and start Zyprexa. Zoloft also has been discontinued. PAST MEDICAL HISTORY: Reviewed. REVIEW OF SYSTEMS: CARDIOVASCULAR: No angina or palpitations. RESPIRATORY: As mentioned earlier. GI no nausea or vomiting. : No dysuria. CENTRAL NERVOUS SYSTEM: No numbness, weakness. CURRENT MEDICATIONS: 1. [place] 5 mg q.6h p.r.n. 2. Aspirin 81 mg. 3. Lipitor 80 mg q.h.s. 4. Rocephin 1 g daily. 5. Lasix drip. 6. Heparin 5000 subcu b.i.d. 7. Levemir b.i.d. 8. Lamictal 100 mg q.h.s. 9. Zaroxolyn 5 mg p.o. daily. 10.Lopressor 25 mg p.o. b.i.d. 11.Zyprexa 50 mg q.h.s. 12.Protonix 40 mg daily. 14.Zoloft 50 mg p.o. daily. PHYSICAL EXAM: Patient is alert, oriented x3. Pulse 86, blood pressure 112/60, respiration 18, temperature 98.2, pulse ox 98% on room air. HEENT: Conjunctivae normal. Oral mucosa moist. NECK: The patient has significant facial puffiness. Neck is full. CARDIOVASCULAR system: S1, S2 muffled. RESPIRATIONS: Breath sounds diminished in the bases. Bilateral scattered rhonchi and crackles. ABDOMEN: Soft, obese. Abdominal wall edema and perineal edema also present. LEGS: Bilateral leg edema also present. NERVOUS SYSTEM: No focal deficits. Mild diffuse weakness. SKIN as mentioned. LAB STUDIES: WBC 11.1, hemoglobin 10.5, platelets are 429, creatinine is 2.10. The baseline creatinine 7.9 on admission. ASSESSMENT: 1. Congestive heart failure acute exacerbation with acute on chronic diastolic dysfunction ejection fraction 50-55 percent. 2. Chronic renal failure stage III. 3. Possible cardiorenal syndrome. 4. History of scrotal edema. 5. History of facial edema as well as dry skin. 6. Bilateral foot infection and cellulitis and gangrene. 7. History of amputation of the toes on the left foot. 8. Elevated lactic acid, possibly multifactorial. 9. Increased WBC. 10.Anemia, normocytic. 11.History of congestive heart failure. 12.Diabetes type 2. 13.Hypertension. 14.Hyperlipidemia. 15.History of recent suicide attempt with laceration to the left wrist. 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 17.History of insomnia. 18.History of bipolar depression/anxiety. 19.Remote history of nicotine dependence. 20.Obesity with body mass index of 39. RECOMMENDATIONS AND DISCUSSION: Recommend to continue current medications, continue with monitoring, symptomatic treatment. Otherwise, at this time, I recommend continue with Lasix drip. Discussed with the staff and hopefully Dr. Bradshaw's office from Dermatology could evaluate the patient. Psychiatry input appreciated. Otherwise continue the rest of medications. Prognosis guarded. Further recommendations to follow. MMODL / IJN: [id number] / OC
[2019-03-03] MEDS: methylPREDNISolone SOD SUCCI 40 MG/ML 1 ML VIAL IV SCH ×2 (18:48→22:18)
[2019-03-03] MEDS: LORATADINE 10 MG TAB PO SCH (18:49)
--- NOTE | 2019-03-03 19:37 | CONS ---
CONSULTATION DATE OF SERVICE: 03/03/2019 PURPOSE FOR CONSULTATION: Evaluate for mood disorder and history of suicidality. INTERVAL HISTORY: The patient has been doing fairly well from a psychiatric standpoint. He had a quiet evening last night. He said he slept well. He said he slept through the night. Today he has been up. He said he is a little tired today, though he does not think it is any different than he has been doing. He feels his mood is fairly good. He says that he has been leaving his curtains open after our discussion yesterday. He notes that at home he prefers to keep shades drawn. He does not like to look outdoors. He worries that people outside may be looking in. He acknowledged that some of that may relate to paranoia. He said he has not had any trouble today with difficult thoughts even though he is leaving the shades up. He is following through with recommendations for managing his fluid overload. He has not had problems with the start of Zyprexa. He tolerates his medications well. When I talked to him, he was sitting. He said he was just taking a short nap. He says he can take a 5 or 10 minute nap and that seems to refresh him. He gave fairly good eye contact. He was a little slowed in his speech. His thoughts were clear. His affect was a little constricted. He was friendly and pleasant. His mood was even. He did not appear to be distressed. ASSESSMENT: I will continue the current diagnosis. I will switch the patient to Zyprexa 15 mg at bedtime. I had started him on 10 mg twice a day. Taking the medicine once a day may be a benefit to him in terms of medication compliance. If he does not get adequate benefit in regards to some of his disordered thinking including paranoia, there might be an indication to raise his Zyprexa dose. He will continue Zoloft 50 mg a day. I would recommend social work work with him about referring for a psychiatric followup. He might benefit by followup through [facility] due to his chronic and persistent mental illness. He might be able to do Case Management Services which could support him in finding alternative living such as adult foster care. If further psychiatric care is needed please re-consult Psychiatry. MMODL / IJN: [id number] /
[2019-03-03 20:54] LABS: Glucose,Whole Blood 238 mg/dL (75-99)
[2019-03-03] MEDS: ATORVASTATIN 80 MG TAB PO SCH (22:17)
[2019-03-03] MEDS: lamoTRIgine 100 MG TAB PO SCH (22:17)
[2019-03-03] MEDS: OLANZapine 5 MG TAB PO SCH (22:17)
--- NOTE | 2019-03-03 23:04 | P.PN ---
Subjective Progress Note Date: 03/03/19 58-year-old male with multiple medical troubles including diabetes peripheral vascular disease and is a relates to difficulties with mental illness in had a suicide attempt with injury to his left arm.The patient underwent surgical repair to the left wrist lacerations. He has been released from the psychiatric unit with improvement of his condition after medication changes. He overspending having increasing amounts of edema with progressive scrotal and lower extremity edema. He was in the emergency center last week with evidence of the scrotal edema. No evidence of any hydrocele or strangulation was noted was referred back to his primary care physician for his ongoing and worsening edema. The patient apparently has not been able to see his primary care physician. He also was not seen by nephrology in the outpatient clinic. His edema continued to worsen. His skin beginning to flaky became more erythematous and more uncomfortable. He presented to the wound center at that point in time there was evidence of some worsening of his status was advised to contact his primary care physician and consider a visit to the emergency center. The total amputation site of the right great toe as well as eschar to left great toe will need further care. The patient continues to have ongoing significant anxiety issues and is being evaluated by psychiatry. It appears that he may have a u ndiagnosed schizophrenia. The patient is quite miserable because of his edema. 03/03/2019 the patient has been evaluated by nephrology and is now on a Lasix drip with some improved urinary output. The generalized rash persists but he doesn't be slightly less miserable. Objective - Vital Signs Vital signs: Vital Signs Temp 98.3 F 03/03/19 20:00 Pulse 92 03/03/19 20:00 Resp 16 03/03/19 14:58 BP 102/65 03/03/19 20:00 Pulse Ox 94 L 03/03/19 20:00 Intake & Output 03/03/19 03/03/19 03/04/19 06:59 18:59 06:59 Intake Total 960 115 Output Total 1550 525 Balance -1550 435 115 Weight 120.5 kg Intake: Intake, IV Titration 115 Amount Furosemide 100 mg In 115 Sodium Chloride 0.9% 90 ml @ 10 MG/HR 10 mls/hr IV .Q10H [facility] Rx#: [id number] Oral 960 Output: Urine 1550 525 Other: Voiding Method Toilet Urinal - Exam Obese 58-year-old male who is a some mild shortness of breath at rest and is very anxious because of his significant swelling and edema. HEENT: Anicteric conjunctiva are pink and moist nasal mucosa grossly intact without significant lesions, there is no thrush. Neck: The neck is supple without significant lymphadenopathy or thyromegaly. Lungs: Symmetrical air entry is noted basilar crackles are noted expiratory wheezing is heard no bronchial sounds dullness or egophony Heart: Irregular with a positive S4 no murmur click or rub PMI is nondisplaced Abdomen: Obese Positive bowel sounds soft and nontender without palpable masses or organomegaly. There was no guarding or rebound. Extremities: The upper extremities have no open lesions IV site is intact. Lower extremities show evidence of the bilateral edema with some improvement the scrotal e There is no evidence of any skin breakdown at this time. the right foot shows evidence of the eschar which appears to be somewhat superficial with pink tissue beneath The ulceration to left great toe status post the distal amputation as noted. Skin has evidence of a generalized erythematous rash with some flaking Neuro: Awake alert oriented to person place and time. as noted has significant anxiety ,and relates to auditory hallucinations that help calm him - Labs CBC & Chem 7: 03/03/19 06:02 03/03/19 06:02 Labs: Abnormal Lab Results - Last 24 Hours (Table) 03/03/19 03/03/19 03/03/19 Range/Units 05:51 06:02 06:02 RBC 4.08 L (4.30-5.90) m/uL Hgb 10.5 L (13.0-17.5) gm/dL Hct 34.6 L (39.0-53.0) % MCHC 30.3 L (31.0-37.0) g/dL RDW 17.6 H (11.5-15.5) % Eosinophils # 1.7 H (0-0.7) k/uL BUN 83 H (9-20) mg/dL Creatinine 2.10 H (0.66-1.25) mg/dL Glucose 108 H (74-99) mg/dL POC Glucose (mg/dL) 159 H (75-99) mg/dL 03/03/19 03/03/19 03/03/19 Range/Units 12:07 16:54 20:53 RBC (4.30-5.90) m/uL Hgb (13.0-17.5) gm/dL Hct (39.0-53.0) % MCHC (31.0-37.0) g/dL RDW (11.5-15.5) % Eosinophils # (0-0.7) k/uL BUN (9-20) mg/dL Creatinine (0.66-1.25) mg/dL Glucose (74-99) mg/dL POC Glucose (mg/dL) 100 H 123 H 238 H (75-99) mg/dL Laboratory Results WBC 10.4 k/uL (3.8-10.6) 03/03/19 06:02 RBC 4.08 m/uL (4.30-5.90) L 03/03/19 06:02 Hgb 10.5 gm/dL (13.0-17.5) L 03/03/19 06:02 Hct 34.6 % (39.0-53.0) L 03/03/19 06:02 MCV 84.8 fL (80.0-100.0) 03/03/19 06:02 MCH 25.7 pg (25.0-35.0) 03/03/19 06:02 MCHC 30.3 g/dL (31.0-37.0) L 03/03/19 06:02 RDW 17.6 % (11.5-15.5) H 03/03/19 06:02 Plt Count 429 k/uL (150-450) 03/03/19 06:02 Neutrophils % 66 % 03/03/19 06:02 Lymphocytes % 11 % 03/03/19 06:02 Monocytes % 4 % 03/03/19 06:02 Eosinophils % 16 % 03/03/19 06:02 Basophils % 1 % 03/03/19 06:02 Neutrophils # 6.9 k/uL (1.3-7.7) 03/03/19 06:02 Lymphocytes # 1.2 k/uL (1.0-4.8) 03/03/19 06:02 Monocytes # 0.5 k/uL (0-1.0) 03/03/19 06:02 Eosinophils # 1.7 k/uL (0-0.7) H 03/03/19 06:02 Basophils # 0.1 k/uL (0-0.2) 03/03/19 06:02 Hypochromasia Marked 03/03/19 06:02 Anisocytosis Slight 03/03/19 06:02 PT 11.0 sec (9.0-12.0) 03/01/19 11:35 INR 1.0 (<1.2) 03/01/19 11:35 APTT 28.6 sec (22.0-30.0) 03/01/19 11:35 Sodium 137 mmol/L (137-145) 03/03/19 06:02 Potassium 4.2 mmol/L (3.5-5.1) 03/03/19 06:02 Chloride 99 mmol/L (98-107) 03/03/19 06:02 Carbon Dioxide 24 mmol/L (22-30) 03/03/19 06:02 Anion Gap 14 mmol/L 03/03/19 06:02 BUN 83 mg/dL (9-20) H 03/03/19 06:02 Creatinine 2.10 mg/dL (0.66-1.25) H 03/03/19 06:02 Est GFR (CKD-EPI)AfAm 39 (>60 ml/min/1.73 sqM) 03/03/19 06:02 Est GFR (CKD-EPI)NonAf 34 (>60 ml/min/1.73 sqM) 03/03/19 06:02 Glucose 108 mg/dL (74-99) H 03/03/19 06:02 POC Glucose (mg/dL) 238 mg/dL (75-99) H 03/03/19 20:53 POC Glu Director [employer] Nahomi Jennings 03/03/19 20:53 Lactic Ac Sepsis Rflx Y 03/01/19 12:19 Plasma Lactic Acid [place] 2.2 mmol/L (0.7-2.0) H* 03/01/19 16:58 Calcium 8.9 mg/dL (8.4-10.2) 03/03/19 06:02 Phosphorus 5.5 mg/dL (2.5-4.5) H 03/01/19 11:35 Magnesium 2.3 mg/dL (1.6-2.3) 03/03/19 06:02 Total Bilirubin 0.5 mg/dL (0.2-1.3) 03/01/19 11:35 AST 19 U/L (17-59) 03/01/19 11:35 ALT 19 U/L (21-72) L 03/01/19 11:35 Alkaline Phosphatase 100 U/L (38-126) 03/01/19 11:35 Troponin I 0.018 ng/mL (0.000-0.034) 03/01/19 11:35 NT-Pro-B Natriuret Pep 50432 pg/mL 03/03/19 06:02 Total Protein 5.9 g/dL (6.3-8.2) L 03/01/19 11:35 Albumin 3.1 g/dL (3.5-5.0) L 03/01/19 11:35 Urine Color Light Yellow 03/02/19 22:45 Urine Appearance Clear (Clear) 03/02/19 22:45 Urine pH 5.0 (5.0-8.0) 03/02/19 22:45 Ur Specific [place] 1.008 (1.001-1.035) 03/02/19 22:45 Urine Protein Negative (Negative) 03/02/19 22:45 Urine Glucose (UA) Negative (Negative) 03/02/19 22:45 Urine Ketones Negative (Negative) 03/02/19 22:45 Urine Blood Negative (Negative) 03/02/19 22:45 Urine Nitrite Negative (Negative) 03/02/19 22:45 Urine Bilirubin Negative (Negative) 03/02/19 22:45 Urine Urobilinogen <2.0 mg/dL (<2.0) 03/02/19 22:45 Ur Leukocyte Esterase Negative (Negative) 03/02/19 22:45 Assessment and Plan (1) CHF (congestive heart failure) Current Visit: Yes Status: Acute Code(s): I50.9 - HEART FAILURE, UNSPECIFIED SNOMED Code(s): 36946373 (2) Renal insufficiency Current Visit: Yes Status: Acute Code(s): N28.9 - DISORDER OF KIDNEY AND UR ETER, UNSPECIFIED SNOMED Code(s): 824979712 (3) Diabetic ulcer of left foot associated with diabetes mellitus due to underlying condition, with bone involvement without evidence of necrosis Narrative/Plan: 58-year-old male who has multiple medical troubles include underlying psychiatric difficulties with recent suicide attempt. He has been seen by psychiatry today and hopefully with some medication changes are to be some improvement in his status. The patient does not relate his suicidal ideation at this time. He was in the outpatient clinic is evidence of this diffuse rash is macular in nature with dry flaking skin. A fixed drug eruption is of concern. Will provide Zyrtec with steroid therapy to determine if this can allow some relief of the significant rash. Topical steroid can be applied to the areas. If it is not improved may need skin biopsy for further diagnosis. The amputation to the left great toe is noted in his and give ongoing wound care. There is eschar to the right great toe that also is in need of some care. vascular surgery apparently will be reevaluating. 03/03/2019 the patient feels just slightly better today. The insulin drip is being utilized. Antihistamine and steroid have been added and await to see if this will allow some improvement of the significant rash which does appear to be like a fixed drug eruption. Patient has multiple potentials for this, if it worsens and the Lasix drip may need to consider an alternative therapy. The patient is very pleased with his psychiatric evaluation and treatments Current Visit: No Status: Acute Code(s): E08.621 - DIABETES MELLITUS DUE TO UNDERLYING CONDITION W FOOT ULCER; L97.526 - NON-PRS [facility] OTH PRT L FOOT WITH BNE INVL W/O EVD OF NECR SNOMED Code(s): 698643000
[2019-03-04 06:14] LABS: Glucose,Whole Blood 305 mg/dL (75-99)
[2019-03-04] MEDS: INSULIN ASPART (NovoLOG) 100 UNIT/ML VIAL SQ SCH ×5 (06:35→21:09)
[2019-03-04] MEDS: PANTOPRAZOLE 40 MG TABLET PO SCH (06:36)
[2019-03-04] MEDS: FUROSEMIDE 100 MG in SODIUM CHLORIDE 0.9% 90 ML IV SCH ×2 (06:37→17:11)
[2019-03-04 07:02] LABS: Anisocytosis Slight; Basophils % (A) 1 %; Eosinophils % (A) 1 %; HCT 30.8 % (39.0-53.0); HGB 9.3 gm/dL (13.0-17.5); Hypochromasia Marked; Lymphocytes # (A) 0.7 k/uL (1.0-4.8); Lymphocytes % (A) 14 %; MCH 25.8 pg (25.0-35.0); MCHC 30.2 g/dL (31.0-37.0); MCV 85.4 fL (80.0-100.0); Mean Platelet Volume 7.1; Monocytes # (A) 0.3 k/uL (0-1.0); Monocytes % (A) 6 %; Neutrophils # (A) 3.7 k/uL (1.3-7.7); Neutrophils % (A) 76 %; Platelet Count 338 k/uL (150-450); RBC 3.61 m/uL (4.30-5.90); RDW 17.3 % (11.5-15.5); WBC 4.9 k/uL (3.8-10.6)
[2019-03-04 07:30] LABS: Calcium 8.2 mg/dL (8.4-10.2); Magnesium 2.3 mg/dL (1.6-2.3); Potassium 3.3 mmol/L (3.5-5.1)
[2019-03-04] MEDS ORDERED: POTASSIUM CHLORIDE ER 20 MEQ TAB.ER PO STA (07:33)
[2019-03-04] MEDS: methylPREDNISolone SOD SUCCI 40 MG/ML 1 ML VIAL IV SCH ×2 (08:06→21:08)
[2019-03-04] MEDS: POTASSIUM CHLORIDE ER 20 MEQ TAB.ER PO SCH ×2 (08:07→21:08)
[2019-03-04] MEDS: ASPIRIN 81 MG PO SCH (08:08)
[2019-03-04] MEDS: METOPROLOL TARTRATE 25 MG TAB PO SCH ×2 (08:08→21:08)
[2019-03-04] MEDS: LORATADINE 10 MG TAB PO SCH (08:08)
[2019-03-04] MEDS: SERTRALINE 50 MG TAB PO SCH (08:08)
[2019-03-04] MEDS: HEPARIN SODIUM,PORCINE 5,000 UNIT/ML 1 ML VIAL SQ SCH ×2 (08:08→21:08)
[2019-03-04] MEDS: INSULIN DETEMIR (LEVEMIR) 100 UNIT/ML SYR SQ SCH (08:15)
[2019-03-04] MEDS: METOLAZONE 5 MG TAB PO SCH (08:15)
--- NOTE | 2019-03-04 09:59 | P.PN ---
Subjective Patient is seen in follow-up for acute kidney injury and chronic any disease. Patient has chronic kidney disease stage III with baseline creatinine near 1.5 secondary to cardiorenal syndrome and diabetic kidney disease. Currently maintained on Lasix drip at 10 cc/hr and metolazone. Still quite edematous. Oral intake is good. No vomiting or diarrhea. He is nonoliguric. Weight is trending down. Vital signs are stable. General: The patient appeared well nourished and normally developed. HEENT: Head exam is unremarkable. Neck is without jugular venous distension. LUNGS: Lungs are clear to auscultation and percussion. Breath sounds decreased. HEART: Rate and Rhythm are regular. First and second heart sounds normal. No murmurs, rubs or gallops. ABDOMEN: Abdominal exam reveals normal bowel sounds. Non-tender. Obese. EXTREMITITES: 2+ edema. Objective - Vital Signs Vital signs: Vital Signs Temp 98 F 03/04/19 08:00 Pulse 87 03/04/19 08:00 Resp 18 03/04/19 08:00 BP 114/76 03/04/19 08:00 Pulse Ox 92 L 03/04/19 08:00 Intake & Output 03/03/19 03/04/19 03/04/19 18:59 06:59 18:59 Intake Total 960 115 Output Total 525 Balance 435 115 Weight 118.9 kg Intake: Intake, IV Titration 115 Amount Furosemide 100 mg In 115 Sodium Chloride 0.9% 90 ml @ 10 MG/HR 10 mls/hr IV .Q10H [facility] Rx#: [id number] Oral 960 Output: Urine 525 - Labs CBC & Chem 7: 03/04/19 06:09 03/04/19 06:09 Labs: Abnormal Lab Results - Last 24 Hours (Table) 03/03/19 03/03/19 03/03/19 Range/Units 12:07 16:54 20:53 RBC (4.30-5.90) m/uL Hgb (13.0-17.5) gm/dL Hct (39.0-53.0) % MCHC (31.0-37.0) g/dL RDW (11.5-15.5) % Lymphocytes # (1.0-4.8) k/uL Potassium (3.5-5.1) mmol/L BUN (9-20) mg/dL Creatinine (0.66-1.25) mg/dL Glucose (74-99) mg/dL POC Glucose (mg/dL) 100 H 123 H 238 H (75-99) mg/dL Calcium (8.4-10.2) mg/dL 03/04/19 03/04/19 03/04/19 Range/Units 06:09 06:09 06:11 RBC 3.61 L (4.30-5.90) m/uL Hgb 9.3 L (13.0-17.5) gm/dL Hct 30.8 L (39.0-53.0) % MCHC 30.2 L (31.0-37.0) g/dL RDW 17.3 H (11.5-15.5) % Lymphocytes # 0.7 L (1.0-4.8) k/uL Potassium 3.3 L (3.5-5.1) mmol/L BUN 92 H (9-20) mg/dL Creatinine 2.00 H (0.66-1.25) mg/dL Glucose 261 H (74-99) mg/dL POC Glucose (mg/dL) 305 H (75-99) mg/dL Calcium 8.2 L (8.4-10.2) mg/dL Assessment and Plan Plan: Assessment: 1. Acute kidney injury mostly prerenal secondary to cardiorenal syndrome. Creatinine 2.0 today. 2. Chronic kidney disease stage III secondary to diabetic kidney disease and cardiorenal syndrome. Recent creatinine in the range of 1.3-1.6. 3. Volume overload. 4. Diastolic CHF. 5. Diabetes mellitus. 6. Hypervolemic hyponatremia. Better. 7. Hypokalemia secondary to diuresis. Plan: Continue Lasix drip at 10 mL an hour. Maintain metolazone 5 mg once daily. Low-salt diet and 1500 mL fluid restriction - I will change to 1800 mL fluid restriction as patient requesting to drink more. Maintain potassium supplementation. Additional 40 mg once today. Repeat electrolytes in the morning. Daily weights. Strict I's and O's. Ok to place midline on the dominant side.
[2019-03-04 12:26] LABS: Glucose,Whole Blood 320 mg/dL (75-99)
--- NOTE | 2019-03-04 15:32 | P.PN ---
Subjective Progress Note Date: 03/04/19 This is a 58-year-old gentleman with a past medical history significant for chronic diastolic congestive heart failure, diabetes, hypertension, dyslipidemia, and history of bipolar disorder, presented to the emergency room complaining of edema in the upper and lower extremities. The edema started about 2 weeks ago and has progressed. The patient did gain about 15 pounds within these 2 weeks. Beside that for the last 2 days he has been noticing increasing in the shortness of breath with exertion. No symptoms of chest pain or chest discomfort, dizziness, heart racing or fluttering, and no syncope. The patient does have osteomyelitis of the left foot and he underwent amputation of the left great toe and he has been followed by Dr. Mustafa. No history of coronary artery disease and prior coronary revascularization. No cardiac arrhythmia in the past. He was in the hospital in January 2018 where an echocardiogram was performed and revealed normal LV function was mild MR and mild TR and normal pulmonary artery systolic pressure. This time the chest x- ray showed findings consistent with CHF. The EKG showed sinus rhythm with low. The QRS. The rest of the blood work came in to be unremarkable except for mildly increased into creatinine which seems to be chronic. Beside that, the patient denies any fever or chills or cough. On examination, he does have extensive pitting edema of the upper and lower extremities with a component of cellulitis as well. Currently he is on Lasix IV. He stated that he was compliant with all of his medication and normally he put his medication in a box and take them everyday. Beside that he stated that he was compliant with his diet including salt intake. 03/03/2019 Patient was seen and examined this morning, initiated on IV Lasix drip today. I pressure 114/70 with a heart rate in the 80s, 95% on room air. Blood cell count 10.4, hemoglobin 10.5, platelet count 429. Sodium 137, potassium 4.2, BUN 83 and creatinine 2.1. 03/04/2019 Patient seen and examined this morning, weight is down 2 kg today. Continues to be on IV Lasix drip per Dr. Aragon. Blood pressure 110/70 with a heart rate in the 60s, 94% on room air. White blood cell count 4.9, hemoglobin 9.3, platelet count 338. Sodium 137, potassium 3.3, BUN 92 and creatinine 2.0, magnesium 2.3. Objective - Vital Signs Vital signs: Vital Signs Temp 97.9 F 03/04/19 12:00 Pulse 85 03/04/19 12:00 Resp 18 03/04/19 12:00 BP 109/79 03/04/19 12:00 Pulse Ox 94 L 03/04/19 12:00 Intake & Output 03/03/19 03/04/19 03/04/19 18:59 06:59 18:59 Intake Total 960 115 50 Output Total 525 Balance 435 115 50 Weight 118.9 kg Intake: Intake, IV Titration 115 50 Amount Furosemide 100 mg In 115 Sodium Chloride 0.9% 90 ml @ 10 MG/HR 10 mls/hr IV .Q10H [facility] Rx#: [id number] cefTRIAXone 1 gm In 50 Sodium Chloride 0.9% 50 ml @ 100 mls/hr IVPB Q24HR [facility] Rx#:[id number] Oral 960 Output: Urine 525 Other: Voiding Method Toilet Urinal # Voids 1 - Exam PHYSICAL EXAMINATION: GENERAL: 68-year-old gentleman in no acute distress at the time of my examination HEENT: Head is atraumatic, normocephalic. Pupils equal, round. Sclera anicteric. Conjunctiva are clear. Mucous membranes of the mouth are moist. Neck is supple. There is elevated jugular venous pressure. No carotid bruit is heard. HEART EXAMINATION: Heart S1 S2 1 systolic murmur is heard CHEST EXAMINATION: Lungs reveal diminished air entry to bilateral bases ABDOMEN: Soft, nontender. Bowel sounds are heard. No organomegaly noted. EXTREMITIES: 2+ peripheral pulses with evidence of peripheral edema and no calf tenderness noted. NEUROLOGIC patient is awake, alert and oriented 3 . . - Labs CBC & Chem 7: 03/04/19 06:09 03/04/19 06:09 Labs: Abnormal Lab Results - Last 24 Hours (Table) 03/03/19 03/03/19 03/04/19 Range/Units 16:54 20:53 06:09 RBC 3.61 L (4.30-5.90) m/uL Hgb 9.3 L (13.0-17.5) gm/dL Hct 30.8 L (39.0-53.0) % MCHC 30.2 L (31.0-37.0) g/dL RDW 17.3 H (11.5-15.5) % Lymphocytes # 0.7 L (1.0-4.8) k/uL Potassium (3.5-5.1) mmol/L BUN (9-20) mg/dL Creatinine (0.66-1.25) mg/dL Glucose (74-99) mg/dL POC Glucose (mg/dL) 123 H 238 H (75-99) mg/dL Calcium (8.4-10.2) mg/dL 03/04/19 03/04/19 03/04/19 Range/Units 06:09 06:11 12:06 RBC (4.30-5.90) m/uL Hgb (13.0-17.5) gm/dL Hct (39.0-53.0) % MCHC (31.0-37.0) g/dL RDW (11.5-15.5) % Lymphocytes # (1.0-4.8) k/uL Potassium 3.3 L (3.5-5.1) mmol/L BUN 92 H (9-20) mg/dL Creatinine 2.00 H (0.66-1.25) mg/dL Glucose 261 H (74-99) mg/dL POC Glucose (mg/dL) 305 H 320 H (75-99) mg/dL Calcium 8.2 L (8.4-10.2) mg/dL Assessment and Plan Plan: Assessment #1 congestive heart failure exacerbation secondary to diastole dysfunction, acute on chronic #2 chronic renal failure seems to be stable #3 diabetes type 2 #4 history of bipolar disorder #5 multiple comorbid conditions Plan Recent echo showed normal LV function with mild MR and mild TR. Lasix as per nephrology. Continue to monitor kidney function. Patient has severe occlusive PAD to be ruled out as an outpatient. DNP note has been reviewed, I agree with a documented findings and plan of care. Patient was seen and examined.
[2019-03-04] MEDS: TRIAMCINOLONE 0.1% CREAM 80 GM TUBE TOPICAL SCH ×2 (15:40→21:20)
[2019-03-04 16:26] LABS: Glucose,Whole Blood 297 mg/dL (75-99)
--- NOTE | 2019-03-04 17:20 | PN ---
PROGRESS NOTE DATE OF SERVICE: 03/04/2019 This 58-year-old gentleman who was admitted with CHF, acute exacerbation, also had chronic renal failure. The patient also had possible cardiorenal syndrome. Patient was started on intravenous Lasix. Patient also had significant diffuse skin lesions; the possibility of a drug allergy is also considered. Possible dermatology consultation pending at this time. Multiple consultants, including Cardiology, Psychiatry, ID and Nephrology, are following the patient closely. The patient also has significant diabetic ulcers of the bilateral feet, and gangrene of the left great toe as well. On exam, alert and oriented x3. Pulse 63, blood pressure 109/79, respiration 18, temperature 97.9, pulse ox 94% on room air. HEENT: Conjunctivae normal. NECK: No jugular venous distention. CARDIOVASCULAR SYSTEM: S1, S2 muffled. RESPIRATORY SYSTEM: Breath sounds diminished at the bases. A few scattered rhonchi and crackles. ABDOMEN: Soft, non-tender. No mass palpable. LEGS: No edema. No swelling. NERVOUS SYSTEM: No focal deficit. LABS: WBC 4.9, hemoglobin 9.3. Sodium 137, potassium 3.3. Creatinine is 2. ASSESSMENT: 1. Congestive heart failure, acute exacerbation, with acute on chronic diastolic dysfunction, ejection fraction 50% to 55%, on IV Lasix drip. 2. Chronic renal failure, stage III. 3. Possible cardiorenal syndrome. 4. History of scrotal edema. 5. History of facial edema as well as dry skin throughout. 6. Bilateral foot infection and cellulitis and gangrene, diabetic foot. 7. History of amputation of the toes on the left foot. 8. Elevated lactic acid, possibly multifactorial. 9. Increased white count. 10.Anemia, normocytic. 11.History of congestive heart failure. 12.Diabetes mellitus, type 2. 13.Hypertension. 14.Hyperlipidemia. 15.History of recent suicide attempt with laceration of the left wrist. 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 17.History of insomnia. 18.History of bipolar, depression, anxiety. 19.Remote history of nicotine dependence. 20.Obesity with body mass index of 39. RECOMMENDATIONS AND DISCUSSION: I recommend to continue current medications, continue with the monitoring, symptomatic treatment. Continue with the diuretics. Monitor fluid/electrolyte balance closely. Await dermatology evaluation. Continue the rest of the medications. Guarded prognosis. Further recommendations to follow. The patient was started on a small dose of IV steroids, also. MMODL / IJN: [id number] /
[2019-03-04 17:26] LABS: Glucose,Whole Blood 310 mg/dL (75-99)
--- NOTE | 2019-03-04 17:56 | PN ---
PROGRESS NOTE PROGRESS NOTE ADDENDUM: DATE OF SERVICE: 03/04/2019 ADDITION TO DIAGNOSES: Anemia, normocytic, possibly secondary to chronic kidney disease. MMODL / IJN: [id number] /
[2019-03-04 20:35] LABS: Glucose,Whole Blood 327 mg/dL (75-99)
[2019-03-04] MEDS: lamoTRIgine 100 MG TAB PO SCH (21:08)
[2019-03-04] MEDS: ATORVASTATIN 80 MG TAB PO SCH (21:08)
[2019-03-04] MEDS: OLANZapine 5 MG TAB PO SCH (21:09)
[2019-03-05 06:41] LABS: Glucose,Whole Blood 75 mg/dL (75-99)
[2019-03-05 06:43] LABS: Anisocytosis Slight; Basophils % (A) 0 %; Eosinophils # (A) 0.1 k/uL (0-0.7); Eosinophils % (A) 1 %; HGB 9.4 gm/dL (13.0-17.5); Hypochromasia Slight; Lymphocytes # (A) 1.1 k/uL (1.0-4.8); Lymphocytes % (A) 13 %; MCH 26.1 pg (25.0-35.0); MCHC 31.2 g/dL (31.0-37.0); MCV 83.5 fL (80.0-100.0); Monocytes # (A) 0.5 k/uL (0-1.0); Monocytes % (A) 6 %; Neutrophils # (A) 7.1 k/uL (1.3-7.7); Neutrophils % (A) 79 %; Platelet Count 409 k/uL (150-450); RBC 3.59 m/uL (4.30-5.90); RDW 17.9 % (11.5-15.5)
[2019-03-05] MEDS: INSULIN ASPART (NovoLOG) 100 UNIT/ML VIAL SQ SCH ×6 (06:45→17:31)
[2019-03-05] MEDS: PANTOPRAZOLE 40 MG TABLET PO SCH (06:47)
[2019-03-05 06:48] LABS: Calcium 8.6 mg/dL (8.4-10.2); Magnesium 2.2 mg/dL (1.6-2.3); Potassium 3.3 mmol/L (3.5-5.1)
[2019-03-05] MEDS: FUROSEMIDE 100 MG in SODIUM CHLORIDE 0.9% 90 ML IV SCH ×2 (06:49→15:38)
[2019-03-05] MEDS: LORATADINE 10 MG TAB PO SCH (08:50)
[2019-03-05] MEDS: METOPROLOL TARTRATE 25 MG TAB PO SCH ×2 (08:50→21:34)
[2019-03-05] MEDS: POTASSIUM CHLORIDE ER 20 MEQ TAB.ER PO SCH ×2 (08:50→21:35)
[2019-03-05] MEDS: HEPARIN SODIUM,PORCINE 5,000 UNIT/ML 1 ML VIAL SQ SCH ×2 (08:50→21:34)
[2019-03-05] MEDS: SERTRALINE 50 MG TAB PO SCH (08:50)
[2019-03-05] MEDS: ASPIRIN 81 MG PO SCH (08:50)
[2019-03-05] MEDS: METOLAZONE 5 MG TAB PO SCH (08:51)
[2019-03-05] MEDS: TRIAMCINOLONE 0.1% CREAM 80 GM TUBE TOPICAL SCH (08:51)
[2019-03-05] MEDS: methylPREDNISolone SOD SUCCI 40 MG/ML 1 ML VIAL IV SCH ×2 (08:51→21:33)
[2019-03-05] MEDS: INSULIN DETEMIR (LEVEMIR) 100 UNIT/ML SYR SQ SCH (09:07)
--- NOTE | 2019-03-05 09:58 | P.PN ---
Subjective Patient is seen in follow-up for acute kidney injury and chronic any disease. Patient has chronic kidney disease stage III with baseline creatinine near 1.5 secondary to cardiorenal syndrome and diabetic kidney disease. Currently maintained on Lasix drip at 10 cc/hr and metolazone. Still quite edematous but improving. Oral intake is good. No vomiting or diarrhea. He is nonoliguric. Vital signs are stable. General: The patient appeared well nourished and normally developed. HEENT: Head exam is unremarkable. Neck is without jugular venous distension. LUNGS: Lungs are clear to auscultation and percussion. Breath sounds decreased. HEART: Rate and Rhythm are regular. First and second heart sounds normal. No murmurs, rubs or gallops. ABDOMEN: Abdominal exam reveals normal bowel sounds. Non-tender. Obese. EXTREMITITES: 2+ edema. Objective - Vital Signs Vital signs: Vital Signs Temp 97.4 F L 03/05/19 09:15 Pulse 66 03/05/19 09:15 Resp 18 03/05/19 09:15 BP 121/75 03/05/19 09:15 Pulse Ox 90 L 03/05/19 09:15 Intake & Output 03/04/19 03/05/19 03/05/19 18:59 06:59 18:59 Intake Total 150 100 Output Total 1500 Balance 150 -1400 Weight 119.5 kg Intake: Intake, IV Titration 150 100 Amount Furosemide 100 mg In 100 100 Sodium Chloride 0.9% 90 ml @ 10 MG/HR 10 mls/hr IV .Q10H [facility] Rx#: [id number] cefTRIAXone 1 gm In 50 Sodium Chloride 0.9% 50 ml @ 100 mls/hr IVPB Q24HR [facility] Rx#:[id number] Output: Urine 1500 Other: Voiding Method Toilet Toilet Urinal Urinal # Voids 1 1 - Labs CBC & Chem 7: 03/05/19 05:18 03/05/19 05:18 Labs: Abnormal Lab Results - Last 24 Hours (Table) 03/04/19 03/04/19 03/04/19 Range/Units 12:06 16:24 17:24 RBC (4.30-5.90) m/uL Hgb (13.0-17.5) gm/dL Hct (39.0-53.0) % RDW (11.5-15.5) % Potassium (3.5-5.1) mmol/L BUN (9-20) mg/dL Creatinine (0.66-1.25) mg/dL Glucose (74-99) mg/dL POC Glucose (mg/dL) 320 H 297 H 310 H (75-99) mg/dL 03/04/19 03/05/19 03/05/19 Range/Units 20:29 05:18 05:18 RBC 3.59 L (4.30-5.90) m/uL Hgb 9.4 L (13.0-17.5) gm/dL Hct 30.0 L (39.0-53.0) % RDW 17.9 H (11.5-15.5) % Potassium 3.3 L (3.5-5.1) mmol/L BUN 96 H (9-20) mg/dL Creatinine 1.99 H (0.66-1.25) mg/dL Glucose 123 H (74-99) mg/dL POC Glucose (mg/dL) 327 H (75-99) mg/dL Assessment and Plan Plan: Assessment: 1. Acute kidney injury mostly prerenal secondary to cardiorenal syndrome. Renal function stable. Creatinine 1.99 today. 2. Chronic kidney disease stage III secondary to diabetic kidney disease and cardiorenal syndrome. Recent creatinine in the range of 1.3-1.6. 3. Volume overload. Improving with diuresis. 4. Diastolic CHF. 5. Diabetes mellitus. 6. Hypervolemic hyponatremia. Better. 7. Hypokalemia secondary to diuresis. Magnesium normal. Plan: Continue Lasix drip at 10 mL an hour. Maintain metolazone 5 mg once daily. Low-salt diet and 1800 mL fluid restriction. Maintain potassium supplementation. Additional 60 mg once today. Repeat electrolytes in the morning. Daily weights. Strict I's and O's.
[2019-03-05] MEDS ORDERED: POTASSIUM CHLORIDE ER 20 MEQ TAB.ER PO STA (10:20)
[2019-03-05 11:48] LABS: Glucose,Whole Blood 248 mg/dL (75-99)
--- NOTE | 2019-03-05 16:44 | P.PN ---
Subjective Progress Note Date: 03/05/19 This is a 58-year-old gentleman with a chronic kidney disease with stasis the renal failure, chronic diastolic CHF, diabetes and hypertension and also bipolar disorder who came to the hospital with edema of the upper and lower extremities. Apparently patient gained several pounds over the last 2 weeks. Patient also has been having experiencing increasing shortness of breath. He has osteomyelitis of the toe and is being followed by Dr. Mustafa. No known history of any coronary artery disease.. Patient was seen by supervisor [employer] workers and was initiated on IV Lasix drip. He is also on Zaroxolyn. He seemed to be diuresing fairly well. He is feeling better. His going to stay on IV Lasix for the next 48 hours. We will continue to follow Objective - Vital Signs Vital signs: Vital Signs Temp 97.4 F L 03/05/19 09:15 Pulse 81 03/05/19 12:20 Resp 17 03/05/19 12:20 BP 124/69 03/05/19 12:20 Pulse Ox 91 L 03/05/19 12:20 Intake & Output 03/04/19 03/05/19 03/05/19 18:59 06:59 18:59 Intake Total 150 100 88.167 Output Total 1500 800 Balance 150 -1400 -711.833 Weight 119.5 kg Intake: Intake, IV Titration 150 100 88.167 Amount Furosemide 100 mg In 100 100 88.167 Sodium Chloride 0.9% 90 ml @ 10 MG/HR 10 mls/hr IV .Q10H [facility] Rx#: [id number] cefTRIAXone 1 gm In 50 Sodium Chloride 0.9% 50 ml @ 100 mls/hr IVPB Q24HR [facility] Rx#:[id number] Output: Urine 1500 800 Other: Voiding Method Toilet Toilet Urinal Urinal # Voids 1 1 1 - Exam GENERAL EXAM: Patient is alert and oriented and doesn't appear to be in any acute distress HEENT: Normocephalic. Normal reaction of pupils, equal size, normal range of extraocular motion. No erythema or exudates in the throat. NECK: No masses, no nuchal rigidity. CHEST: No chest wall deformity. LUNGS: Equal air entry with no crackles or wheeze. HEART: S1 and S2 normal with no audible mumurs or gallops. Regular rhythm, femorals equal on both sides.. ABDOMEN: No hepatosplenomegaly, normal bowel sounds, no guarding or rigidity. SKIN: No rashes CENTRAL NERVOUS SYSTEM: No focal deficits. EXTREMITIES: Diffuse edema - Labs CBC & Chem 7: 03/05/19 05:18 03/05/19 05:18 Labs: Abnormal Lab Results - Last 24 Hours (Table) 03/04/19 03/04/19 03/05/19 Range/Units 17:24 20:29 05:18 RBC 3.59 L (4.30-5.90) m/uL Hgb 9.4 L (13.0-17.5) gm/dL Hct 30.0 L (39.0-53.0) % RDW 17.9 H (11.5-15.5) % Potassium (3.5-5.1) mmol/L BUN (9-20) mg/dL Creatinine (0.66-1.25) mg/dL Glucose (74-99) mg/dL POC Glucose (mg/dL) 310 H 327 H (75-99) mg/dL 03/05/19 03/05/19 Range/Units 05:18 11:46 RBC (4.30-5.90) m/uL Hgb (13.0-17.5) gm/dL Hct (39.0-53.0) % RDW (11.5-15.5) % Potassium 3.3 L (3.5-5.1) mmol/L BUN 96 H (9-20) mg/dL Creatinine 1.99 H (0.66-1.25) mg/dL Glucose 123 H (74-99) mg/dL POC Glucose (mg/dL) 248 H (75-99) mg/dL Assessment and Plan (1) Diastolic CHF Current Visit: Yes Status: Acute Code(s): I50.30 - UNSPECIFIED DIASTOLIC (CONGESTIVE) HEART FAILURE SNOMED Code(s): 818413389 (2) Renal insufficiency Current Visit: Yes Status: Acute Code(s): N28.9 - DISORDER OF KIDNEY AND URETER, UNSPECIFIED SNOMED Code(s): 214089194 (3) Bipolar 1 disorder, depressed Current Visit: No Status: Acute Priority: Low Code(s): F31.9 - BIPOLAR DISORDER, UNSPECIFIED SNOMED Code(s): 58889016 Plan: Continue current medical therapy. Follow input and output and weight. Follow electrolytes. We'll follow nephrology recommendations
[2019-03-05 17:32] LABS: Glucose,Whole Blood 126 mg/dL (75-99)
--- NOTE | 2019-03-05 17:35 | PN ---
PROGRESS NOTE DATE OF SERVICE: 03/05/2019 This 58-year-old gentleman who was admitted with CHF, acute exacerbation, also had some drug reaction. The patient also is on IV Lasix drip at this time. Cardiology is following the patient closely. The patient still has some dry scales. Dermatology evaluation has to be done as an outpatient because of nonavailability of physicians at this time. Please refer to staff notes and case checker notes for further details. Otherwise, the patient also had significant itching and exfoliation of skin. On exam, alert and oriented x3. Pulse is 66, blood pressure 121/75, respiration 18, temperature 97.4, pulse ox 90% on room air. HEENT: Conjunctivae normal. NECK: No jugular venous distention. CARDIOVASCULAR SYSTEM: S1, S2 muffled. RESPIRATORY SYSTEM: Breath sounds diminished at the bases. A few scattered rhonchi and crackles. ABDOMEN: Soft, non-tender. LEGS: No edema. No swelling. NERVOUS SYSTEM: No focal deficit. LABS: WBC 9, hemoglobin 9.4. Sodium 139, potassium 3.3. Creatinine is 1.99. ASSESSMENT: 1. Congestive heart failure, acute exacerbation, with acute on chronic diastolic dysfunction, ejection fraction 50% to 55%, on IV Lasix drip. 2. Chronic renal failure, stage III. 3. Possible cardiorenal syndrome. 4. History of scrotal edema. 5. History of facial edema as well as dry skin throughout. 6. Bilateral foot infection and cellulitis with gangrene, diabetic foot. 7. History of amputation of toes on the left foot. 8. Elevated lactic acid, possibly multifactorial, present on admission. 9. Increased white count. 10.Anemia, normocytic. 11.History of congestive heart failure. 12.History of diabetes mellitus, type 2. 13.Hypertension. 14.Hyperlipidemia. 15.History of recent suicidal attempt with laceration of the left wrist. 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 17.History of insomnia. 18.History of bipolar depression history. 19.History of nicotine dependence remotely. 20.Obesity with body mass index of 39. RECOMMENDATIONS AND DISCUSSION: I recommend to continue current medications, continue with the monitoring, symptomatic treatment. Potassium supplementation. Otherwise, I will monitor the fluid/electrolyte balance closely. Continue with antibiotics. Follow closely with multiple consultants, including Nephrology, Cardiology. Guarded prognosis. Further recommendations to follow. See orders for further details. MMODL / IJN: [id number] /
[2019-03-05 20:57] LABS: Glucose,Whole Blood 150 mg/dL (75-99)
[2019-03-05] MEDS: lamoTRIgine 100 MG TAB PO SCH (21:36)
[2019-03-05] MEDS: ATORVASTATIN 80 MG TAB PO SCH (21:36)
[2019-03-06] MEDS: OLANZapine 5 MG TAB PO SCH ×2 (02:51→21:38)
[2019-03-06] MEDS: INSULIN ASPART (NovoLOG) 100 UNIT/ML VIAL SQ SCH ×8 (02:51→21:45)
[2019-03-06] MEDS: TRIAMCINOLONE 0.1% CREAM 80 GM TUBE TOPICAL SCH ×3 (02:51→23:13)
[2019-03-06] MEDS: FUROSEMIDE 100 MG in SODIUM CHLORIDE 0.9% 90 ML IV SCH ×4 (02:56→22:17)
[2019-03-06] MEDS: PANTOPRAZOLE 40 MG TABLET PO SCH (06:24)
[2019-03-06 06:45] LABS: Glucose,Whole Blood 62 mg/dL (75-99)
[2019-03-06 06:58] LABS: Anisocytosis Slight; Basophils # (A) 0.1 k/uL (0-0.2); Basophils % (A) 1 %; Eosinophils # (A) 0.2 k/uL (0-0.7); Eosinophils % (A) 2 %; HCT 31.6 % (39.0-53.0); HGB 9.7 gm/dL (13.0-17.5); Hypochromasia Marked; Lymphocytes # (A) 1.2 k/uL (1.0-4.8); Lymphocytes % (A) 11 %; MCH 25.9 pg (25.0-35.0); MCHC 30.8 g/dL (31.0-37.0); Monocytes # (A) 0.6 k/uL (0-1.0); Monocytes % (A) 6 %; Neutrophils # (A) 8.6 k/uL (1.3-7.7); Neutrophils % (A) 80 %; Platelet Count 428 k/uL (150-450); RBC 3.76 m/uL (4.30-5.90); RDW 17.6 % (11.5-15.5); WBC 10.8 k/uL (3.8-10.6)
[2019-03-06 06:58] LABS: Glucose,Whole Blood 61 mg/dL (75-99)
[2019-03-06 07:13] LABS: Calcium 8.8 mg/dL (8.4-10.2); Magnesium 2.2 mg/dL (1.6-2.3); Potassium 3.4 mmol/L (3.5-5.1)
[2019-03-06] MEDS: SERTRALINE 50 MG TAB PO SCH (08:30)
[2019-03-06] MEDS: METOPROLOL TARTRATE 25 MG TAB PO SCH ×2 (08:31→21:38)
[2019-03-06] MEDS: ASPIRIN 81 MG PO SCH (08:31)
[2019-03-06] MEDS: LORATADINE 10 MG TAB PO SCH (08:31)
[2019-03-06] MEDS: POTASSIUM CHLORIDE ER 20 MEQ TAB.ER PO SCH ×2 (08:31→21:38)
[2019-03-06] MEDS: HEPARIN SODIUM,PORCINE 5,000 UNIT/ML 1 ML VIAL SQ SCH ×2 (08:32→21:37)
[2019-03-06] MEDS: methylPREDNISolone SOD SUCCI 40 MG/ML 1 ML VIAL IV SCH ×2 (08:33→21:37)
[2019-03-06] MEDS: INSULIN DETEMIR (LEVEMIR) 100 UNIT/ML SYR SQ SCH (09:25)
[2019-03-06] MEDS: METOLAZONE 5 MG TAB PO SCH (09:25)
--- NOTE | 2019-03-06 11:07 | P.PN ---
Subjective Progress Note Date: 03/06/19 Seen and examined for the follow-up of acute kidney injury and volume overload. Making good amount of urine edema improving. No nausea vomiting or diarrhea. Still on Lasix drip 10 mg an hour. Objective - Vital Signs Vital signs: Vital Signs Temp 98.1 F 03/06/19 08:10 Pulse 83 03/06/19 08:10 Resp 16 03/06/19 08:10 BP 117/74 03/06/19 08:10 Pulse Ox 96 03/06/19 08:10 Intake & Output 03/05/19 03/06/19 03/06/19 18:59 06:59 18:59 Intake Total 310.167 100 Output Total 1500 1200 Balance -1189.833 -1100 Weight 115.3 kg Intake: Intake, IV Titration 88.167 100 Amount Furosemide 100 mg In 88.167 100 Sodium Chloride 0.9% 90 ml @ 10 MG/HR 10 mls/hr IV .Q10H [facility] Rx#: [id number] Oral 222 Output: Urine 1500 1200 Other: # Voids 1 1 2 - Exam No acute distress Decreased breath sounds bases S1-S2 heard Generalized edema - Labs CBC & Chem 7: 03/06/19 05:57 03/06/19 05:57 Labs: Abnormal Lab Results - Last 24 Hours (Table) 03/05/19 03/05/19 03/05/19 Range/Units 11:46 17:12 20:53 WBC (3.8-10.6) k/uL RBC (4.30-5.90) m/uL Hgb (13.0-17.5) gm/dL Hct (39.0-53.0) % MCHC (31.0-37.0) g/dL RDW (11.5-15.5) % Neutrophils # (1.3-7.7) k/uL Potassium (3.5-5.1) mmol/L Chloride (98-107) mmol/L Carbon Dioxide (22-30) mmol/L BUN (9-20) mg/dL Creatinine (0.66-1.25) mg/dL Glucose (74-99) mg/dL POC Glucose (mg/dL) 248 H 126 H 150 H (75-99) mg/dL 03/06/19 03/06/19 03/06/19 Range/Units 05:57 05:57 06:38 WBC 10.8 H (3.8-10.6) k/uL RBC 3.76 L (4.30-5.90) m/uL Hgb 9.7 L (13.0-17.5) gm/dL Hct 31.6 L (39.0-53.0) % MCHC 30.8 L (31.0-37.0) g/dL RDW 17.6 H (11.5-15.5) % Neutrophils # 8.6 H (1.3-7.7) k/uL Potassium 3.4 L (3.5-5.1) mmol/L Chloride 97 L (98-107) mmol/L Carbon Dioxide 34 H (22-30) mmol/L BUN 88 H (9-20) mg/dL Creatinine 1.88 H (0.66-1.25) mg/dL Glucose 48 L* (74-99) mg/dL POC Glucose (mg/dL) 62 L (75-99) mg/dL 03/06/19 Range/Units 06:56 WBC (3.8-10.6) k/uL RBC (4.30-5.90) m/uL Hgb (13.0-17.5) gm/dL Hct (39.0-53.0) % MCHC (31.0-37.0) g/dL RDW (11.5-15.5) % Neutrophils # (1.3-7.7) k/uL Potassium (3.5-5.1) mmol/L Chloride (98-107) mmol/L Carbon Dioxide (22-30) mmol/L BUN (9-20) mg/dL Creatinine (0.66-1.25) mg/dL Glucose (74-99) mg/dL POC Glucose (mg/dL) 61 L (75-99) mg/dL Assessment and Plan Assessment: #1 acute kidney injury secondary to type I cardiorenal syndrome. Creatinine stable #2 Anasarca secondary to decompensated CHF. Urine analysis no proteinuria #3 diabetes #4 hypertension #5 hypokalemic alkalosis secondary to diuretics Plan: #1 continue with Lasix drip and metolazone. #2 replace potassium #3 plan to switch to oral torsemide 40 mg by mouth daily along with metolazone possible tomorrow or Friday #4 strict ins and outs # labs in the morning
[2019-03-06 12:21] LABS: Glucose,Whole Blood 220 mg/dL (75-99)
--- NOTE | 2019-03-06 13:02 | P.PN ---
Subjective Progress Note Date: 03/06/19 This is a 58-year-old gentleman with a past medical history significant for chronic diastolic congestive heart failure, diabetes, hypertension, dyslipidemia, and history of bipolar disorder, presented to the emergency room complaining of edema in the upper and lower extremities. The edema started about 2 weeks ago and has progressed. The patient did gain about 15 pounds within these 2 weeks. Beside that for the last 2 days he has been noticing increasing in the shortness of breath with exertion. No symptoms of chest pain or chest discomfort, dizziness, heart racing or fluttering, and no syncope. The patient does have osteomyelitis of the left foot and he underwent amputation of the left great toe and he has been followed by Dr. Mustafa. No history of coronary artery disease and prior coronary revascularization. No cardiac arrhythmia in the past. He was in the hospital in January 2018 where an echocardiogram was performed and revealed normal LV function was mild MR and mild TR and normal pulmonary artery systolic pressure. This time the chest x- ray showed findings consistent with CHF. The EKG showed sinus rhythm with low. The QRS. The rest of the blood work came in to be unremarkable except for mildly increased into creatinine which seems to be chronic. Beside that, the patient denies any fever or chills or cough. On examination, he does have extensive pitting edema of the upper and lower extremities with a component of cellulitis as well. Currently he is on Lasix IV. He stated that he was compliant with all of his medication and normally he put his medication in a box and take them everyday. Beside that he stated that he was compliant with his diet including salt intake. 03/03/2019 Patient was seen and examined this morning, initiated on IV Lasix drip today. I pressure 114/70 with a heart rate in the 80s, 95% on room air. Blood cell count 10.4, hemoglobin 10.5, platelet count 429. Sodium 137, potassium 4.2, BUN 83 and creatinine 2.1. 03/04/2019 Patient seen and examined this morning, weight is down 2 kg today. Continues to be on IV Lasix drip per Dr. Aragon. Blood pressure 110/70 with a heart rate in the 60s, 94% on room air. White blood cell count 4.9, hemoglobin 9.3, platelet count 338. Sodium 137, potassium 3.3, BUN 92 and creatinine 2.0, magnesium 2.3. 03/06/2019 Patient was seen and examined this morning, continues to be on IV Lasix drip overall well. Blood pressure 110/60 with a heart rate in the 70s, 99% on room air. White blood cell count 10.8, hemoglobin 9.7, platelet count 428. Sodium 142, potassium 3.4, BUN 88 and creatinine 1.8, magnesium 2.2. Objective - Vital Signs Vital signs: Vital Signs Temp 96.7 F L 03/06/19 11:45 Pulse 76 03/06/19 11:45 Resp 16 03/06/19 11:45 BP 110/68 03/06/19 11:45 Pulse Ox 99 03/06/19 11:45 Intake & Output 03/05/19 03/06/19 03/06/19 18:59 06:59 18:59 Intake Total 310.167 100 Output Total 1500 1200 Balance -1189.833 -1100 Weight 115.3 kg Intake: Intake, IV Titration 88.167 100 Amount Furosemide 100 mg In 88.167 100 Sodium Chloride 0.9% 90 ml @ 10 MG/HR 10 mls/hr IV .Q10H [facility] Rx#: [id number] Oral 222 Output: Urine 1500 1200 Other: # Voids 1 1 2 - Exam PHYSICAL EXAMINATION: GENERAL: 68-year-old gentleman in no acute distress at the time of my examination HEENT: Head is atraumatic, normocephalic. Pupils equal, round. Sclera anicte sadia. Conjunctiva are clear. Mucous membranes of the mouth are moist. Neck is supple. There is elevated jugular venous pressure. No carotid bruit is heard. HEART EXAMINATION: Heart S1 S2 1 systolic murmur is heard CHEST EXAMINATION: Lungs reveal diminished air entry to bilateral bases ABDOMEN: Soft, nontender. Bowel sounds are heard. No organomegaly noted. EXTREMITIES: 2+ peripheral pulses with evidence of peripheral edema and no calf tenderness noted. NEUROLOGIC patient is awake, alert and oriented 3 . . - Labs CBC & Chem 7: 03/06/19 05:57 03/06/19 05:57 Labs: Abnormal Lab Results - Last 24 Hours (Table) 03/05/19 03/05/19 03/06/19 Range/Units 17:12 20:53 05:57 WBC 10.8 H (3.8-10.6) k/uL RBC 3.76 L (4.30-5.90) m/uL Hgb 9.7 L (13.0-17.5) gm/dL Hct 31.6 L (39.0-53.0) % MCHC 30.8 L (31.0-37.0) g/dL RDW 17.6 H (11.5-15.5) % Neutrophils # 8.6 H (1.3-7.7) k/uL Potassium (3.5-5.1) mmol/L Chloride (98-107) mmol/L Carbon Dioxide (22-30) mmol/L BUN (9-20) mg/dL Creatinine (0.66-1.25) mg/dL Glucose (74-99) mg/dL POC Glucose (mg/dL) 126 H 150 H (75-99) mg/dL 03/06/19 03/06/19 03/06/19 Range/Units 05:57 06:38 06:56 WBC (3.8-10.6) k/uL RBC (4.30-5.90) m/uL Hgb (13.0-17.5) gm/dL Hct (39.0-53.0) % MCHC (31.0-37.0) g/dL RDW (11.5-15.5) % Neutrophils # (1.3-7.7) k/uL Potassium 3.4 L (3.5-5.1) mmol/L Chloride 97 L (98-107) mmol/L Carbon Dioxide 34 H (22-30) mmol/L BUN 88 H (9-20) mg/dL Creatinine 1.88 H (0.66-1.25) mg/dL Glucose 48 L* (74-99) mg/dL POC Glucose (mg/dL) 62 L 61 L (75-99) mg/dL 03/06/19 Range/Units 12:16 WBC (3.8-10.6) k/uL RBC (4.30-5.90) m/uL Hgb (13.0-17.5) gm/dL Hct (39.0-53.0) % MCHC (31.0-37.0) g/dL RDW (11.5-15.5) % Neutrophils # (1.3-7.7) k/uL Potassium (3.5-5.1) mmol/L Chloride (98-107) mmol/L Carbon Dioxide (22-30) mmol/L BUN (9-20) mg/dL Creatinine (0.66-1.25) mg/dL Glucose (74-99) mg/dL POC Glucose (mg/dL) 220 H (75-99) mg/dL Assessment and Plan Plan: Assessment #1 congestive heart failure exacerbation secondary to diastole dysfunction, acute on chronic #2 chronic renal failure seems to be stable #3 diabetes type 2 #4 history of bipolar disorder #5 multiple comorbid conditions Plan Recent echo showed normal LV function with mild MR and mild TR. Lasix as per nephrology. Continue to monitor kidney function. Patient has severe occlusive PAD to be ruled out as an outpatient. DNP note has been reviewed, I agree with a documented findings and plan of care. Patient was seen and examined.
[2019-03-06 18:04] LABS: Glucose,Whole Blood 210 mg/dL (75-99)
[2019-03-06 20:52] LABS: Glucose,Whole Blood 254 mg/dL (75-99)
[2019-03-06] MEDS: lamoTRIgine 100 MG TAB PO SCH (21:38)
[2019-03-06] MEDS: ATORVASTATIN 80 MG TAB PO SCH (21:38)
--- NOTE | 2019-03-06 23:51 | PN ---
PROGRESS NOTE DATE OF SERVICE: 03/06/2019 This 58-year-old gentleman who was admitted with CHF acute exacerbation is on insulin drip at this time. Patient has significant skin lesions and allergy reaction also. The patient's weight is improving at this time. No chest pain. No palpitations. No fever. PHYSICAL EXAM: Alert and oriented x3. Pulse 89, blood pressure 125/74, respiration 16, temperature 97.4, pulse ox 93% on room air. HEENT: Conjunctivae normal. NECK: No jugular venous distention. CARDIOVASCULAR: S1, S2 muffled. RESPIRATORY: Breath sounds diminished in the bases. A few scattered rhonchi and crackles. ABDOMEN is soft, nontender. LEGS: Bilateral leg edema. NERVOUS SYSTEM: No focal deficits. LAB STUDIES: WBC 11.1, hemoglobin 10.7, glucose noted. ASSESSMENT: 1. Congestive heart failure acute exacerbation with acute on chronic diastolic dysfunction, ejection fraction 50-55 percent. IV Lasix drip. 2. Chronic renal failure stage III. 3. Possible cardiorenal syndrome. 4. History of scrotal edema. 5. History of facial edema as well as dry dry skin throughout possible allergic reaction. 6. History of bilateral foot infection with cellulitis with gangrene diabetic foot. 7. History of amputation of toes of the left foot. 8. lactic acid, possibly multifactorial, present on admission. 9. Increased WBC. 10.Anemia, normocytic. 11.History of diabetes type 2. 12.Hypertension. 13.Hyperlipidemia. 14.History of recent suicide attempt with laceration of the left wrist. 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 16.History of insomnia. 17.History of bipolar depression history. 18.History of nicotine dependence. 19.Obesity with body mass index of 39. RECOMMENDATIONS AND DISCUSSION: Recommend to continue current medications, management and symptomatic treatment. Otherwise, at this time, I recommend to continue with current medication. Monitor blood sugars closely. Potassium supplementation. Guarded prognosis because of multiple complex medical issues. Further recommendations to follow. Continue the Lasix drip, reduced dose. MMODL / IJN: [id number] / MTDD
[2019-03-07] MEDS: FUROSEMIDE 100 MG in SODIUM CHLORIDE 0.9% 90 ML IV SCH ×2 (06:20→16:59)
[2019-03-07 06:28] LABS: Glucose,Whole Blood 63 mg/dL (75-99)
[2019-03-07] MEDS: INSULIN ASPART (NovoLOG) 100 UNIT/ML VIAL SQ SCH ×6 (06:31→17:34)
[2019-03-07] MEDS: PANTOPRAZOLE 40 MG TABLET PO SCH (06:32)
[2019-03-07 07:00] LABS: Glucose,Whole Blood 116 mg/dL (75-99)
[2019-03-07 07:27] LABS: Anisocytosis Slight; Basophils # (A) 0.1 k/uL (0-0.2); Basophils % (A) 1 %; Eosinophils # (A) 2.5 k/uL (0-0.7); Eosinophils % (A) 18 %; HGB 10.7 gm/dL (13.0-17.5); Hypochromasia Marked; Lymphocytes # (A) 1.7 k/uL (1.0-4.8); Lymphocytes % (A) 12 %; MCH 25.7 pg (25.0-35.0); MCHC 30.5 g/dL (31.0-37.0); MCV 84.3 fL (80.0-100.0); Mean Platelet Volume 7.1; Monocytes # (A) 0.9 k/uL (0-1.0); Monocytes % (A) 6 %; Neutrophils # (A) 8.7 k/uL (1.3-7.7); Neutrophils % (A) 62 %; Platelet Count 482 k/uL (150-450); RBC 4.16 m/uL (4.30-5.90); RDW 17.6 % (11.5-15.5); WBC 14.1 k/uL (3.8-10.6)
[2019-03-07 07:43] LABS: Calcium 8.9 mg/dL (8.4-10.2); Potassium 3.4 mmol/L (3.5-5.1)
[2019-03-07] MEDS: LORATADINE 10 MG TAB PO SCH (09:15)
[2019-03-07] MEDS: METOLAZONE 5 MG TAB PO SCH (09:15)
[2019-03-07] MEDS: methylPREDNISolone SOD SUCCI 40 MG/ML 1 ML VIAL IV SCH ×2 (09:16→20:50)
[2019-03-07] MEDS: HEPARIN SODIUM,PORCINE 5,000 UNIT/ML 1 ML VIAL SQ SCH ×2 (09:16→20:51)
[2019-03-07] MEDS: ASPIRIN 81 MG PO SCH (09:16)
[2019-03-07] MEDS: SERTRALINE 50 MG TAB PO SCH (09:16)
[2019-03-07] MEDS: POTASSIUM CHLORIDE ER 20 MEQ TAB.ER PO SCH ×2 (09:16→20:50)
[2019-03-07] MEDS: METOPROLOL TARTRATE 25 MG TAB PO SCH ×2 (09:16→20:50)
[2019-03-07 12:40] LABS: Glucose,Whole Blood 249 mg/dL (75-99)
[2019-03-07] MEDS: TRIAMCINOLONE 0.1% CREAM 80 GM TUBE TOPICAL SCH ×2 (12:45→20:53)
[2019-03-07] MEDS: INSULIN DETEMIR (LEVEMIR) 100 UNIT/ML SYR SQ SCH (12:46)
--- NOTE | 2019-03-07 13:23 | P.PN ---
Subjective This is a 58-year-old gentleman with a past medical history significant for chronic diastolic congestive heart failure, diabetes, hypertension, dysl ipidemia, and history of bipolar disorder, presented to the emergency room complaining of edema in the upper and lower extremities. The edema started about 2 weeks ago and has progressed. The patient did gain about 15 pounds within these 2 weeks. Beside that for the last 2 days he has been noticing increasing in the shortness of breath with exertion. No symptoms of chest pain or chest discomfort, dizziness, heart racing or fluttering, and no syncope. The patient does have osteomyelitis of the left foot and he underwent amputation of the left great toe and he has been followed by Dr. Mustafa. No history of coronary artery disease and prior coronary revascularization. No cardiac arrhythmia in the past. He was in the hospital in January 2018 where an echocardiogram was performed and revealed normal LV function was mild MR and mild TR and normal pulmonary artery systolic pressure. This time the chest x- ray showed findings consistent with CHF. The EKG showed sinus rhythm with low. The QRS. The rest of the blood work came in to be unremarkable except for mildly increased into creatinine which seems to be chronic. Beside that, the patient denies any fever or chills or cough. On examination, he does have extensive pitting edema of the upper and lower extremities with a component of cellulitis as well. Currently he is on Lasix IV. He stated that he was compliant with all of his medication and normally he put his medication in a box and take them everyday. Beside that he stated that he was compliant with his diet including salt intake. 03/03/2019 Patient was seen and examined this morning, initiated on IV Lasix drip today. I pressure 114/70 with a heart rate in the 80s, 95% on room air. Blood cell count 10.4, hemoglobin 10.5, platelet count 429. Sodium 137, potassium 4.2, BUN 83 and creatinine 2.1. 03/04/2019 Patient seen and examined this morning, weight is down 2 kg today. Continues to be on IV Lasix drip per Dr. Aragon. Blood pressure 110/70 with a heart rate in the 60s, 94% on room air. White blood cell count 4.9, hemoglobin 9.3, platelet count 338. Sodium 137, potassium 3.3, BUN 92 and creatinine 2.0, magnesium 2.3. 03/06/2019 Patient was seen and examined this morning, continues to be on IV Lasix drip overall well. Blood pressure 110/60 with a heart rate in the 70s, 99% on room air. White blood cell count 10.8, hemoglobin 9.7, platelet count 428. Sodium 142, potassium 3.4, BUN 88 and creatinine 1.8, magnesium 2.2. 03/07/2019 Patient was seen and examined sitting up in the chair in no acute distress. Continues on IV Lasix infusion per nephrology. He complains of exertional shortness of breath or back and forth from the bathroom. He denies symptoms of chest discomfort, dizziness or palpitations. Blood pressure 113/67 heart rate 81 afebrile maintaining oxygen saturation on room air. Laboratory data reviewed,WBC 14.1, hemoglobin 10.7, platelets 482, sodium 141, potassium 3.4, creatinine 1.83. He did have an episode of hypoglycemia this morning. The patient states he feels overall fatigued. GENERAL: Well-appearing, well-nourished and in no acute distress. NECK: Supple without JVD or thyromegaly. LUNGS: Breath sounds clear to auscultation bilaterally. Respiration equal and unlabored. No wheezes, rales or rhonchi. Diminished. HEART: Regular rate and rhythm with systolic ejection murmur at the left sternal border, no rubs or gallops. S1 and S2 heard. EXTREMITIES: Normal range of motion, trace bilateral lower extremity nonpitting edema. No clubbing or cyanosis. Peripheral pulses intact. ASSESSMENT Acute on chronic diastolic heart failure Chronic renal failure Diabetes mellitus Dyslipidemia Hypertension Peripheral vascular disease Former nicotine dependence PLAN Continue Lasix infusion for another 24 hours. Follow kidney function and electrolytes in the morning. Primary care team to address hypoglycemia possibly decrease insulin. We will continue to follow make recommendations accordingly. Nurse Practitioner note has been reviewed, I agree with a documented findings and plan of care. Patient was seen and examined. Objective - Vital Signs Vital signs: Vital Signs Temp 98.7 F 03/07/19 12:00 Pulse 81 03/07/19 12:00 Resp 16 03/07/19 12:00 BP 113/67 03/07/19 12:00 Pulse Ox 97 03/07/19 12:00 Intake & Output 03/06/19 03/07/19 03/07/19 18:59 06:59 18:59 Intake Total 1347 206.333 Output Total 2100 2700 800 Balance -753 -4573.667 -800 Weight 116.4 kg Intake: Intake, IV Titration 150 156.333 Amount Furosemide 100 mg In 100 156.333 Sodium Chloride 0.9% 90 ml @ 10 MG/HR 10 mls/hr IV .Q10H [facility] Rx#: [id number] cefTRIAXone 1 gm In 50 Sodium Chloride 0.9% 50 ml @ 100 mls/hr IVPB Q24HR [facility] Rx#:[id number] Oral 1197 50 Output: Urine 2100 2700 800 Other: Voiding Method Toilet Urinal # Voids 2 1 - Labs CBC & Chem 7: 03/07/19 05:42 03/07/19 05:42 Labs: Abnormal Lab Results - Last 24 Hours (Table) 03/06/19 03/06/19 03/07/19 Range/Units 17:58 20:48 05:42 WBC 14.1 H (3.8-10.6) k/uL RBC 4.16 L (4.30-5.90) m/uL Hgb 10.7 L (13.0-17.5) gm/dL Hct 35.0 L (39.0-53.0) % MCHC 30.5 L (31.0-37.0) g/dL RDW 17.6 H (11.5-15.5) % Plt Count 482 H (150-450) k/uL Neutrophils # 8.7 H (1.3-7.7) k/uL Eosinophils # 2.5 H (0-0.7) k/uL Potassium (3.5-5.1) mmol/L Chloride (98-107) mmol/L Carbon Dioxide (22-30) mmol/L BUN (9-20) mg/dL Creatinine (0.66-1.25) mg/dL Glucose (74-99) mg/dL POC Glucose (mg/dL) 210 H 254 H (75-99) mg/dL 03/07/19 03/07/19 03/07/19 Range/Units 05:42 06:24 06:58 WBC (3.8-10.6) k/uL RBC (4.30-5.90) m/uL Hgb (13.0-17.5) gm/dL Hct (39.0-53.0) % MCHC (31.0-37.0) g/dL RDW (11.5-15.5) % Plt Count (150-450) k/uL Neutrophils # (1.3-7.7) k/uL Eosinophils # (0-0.7) k/uL Potassium 3.4 L (3.5-5.1) mmol/L Chloride 91 L (98-107) mmol/L Carbon Dioxide 39 H (22-30) mmol/L BUN 88 H (9-20) mg/dL Creatinine 1.83 H (0.66-1.25) mg/dL Glucose 49 L* (74-99) mg/dL POC Glucose (mg/dL) 63 L 116 H (75-99) mg/dL 03/07/19 Range/Units 12:07 WBC (3.8-10.6) k/uL RBC (4.30-5.90) m/uL Hgb (13.0-17.5) gm/dL Hct (39.0-53.0) % MCHC (31.0-37.0) g/dL RDW (11.5-15.5) % Plt Count (150-450) k/uL Neutrophils # (1.3-7.7) k/uL Eosinophils # (0-0.7) k/uL Potassium (3.5-5.1) mmol/L Chloride (98-107) mmol/L Carbon Dioxide (22-30) mmol/L BUN (9-20) mg/dL Creatinine (0.66-1.25) mg/dL Glucose (74-99) mg/dL POC Glucose (mg/dL) 249 H (75-99) mg/dL
--- NOTE | 2019-03-07 14:01 | P.PN ---
Subjective Progress Note Date: 03/07/19 Seen and examined for the follow-up of acute kidney injury and volume overload. Making good amount of urine edema improving, 5 L in the last 24 hours.. No nausea vomiting or diarrhea. Still on Lasix drip 10 mg an hour. Objective - Vital Signs Vital signs: Vital Signs Temp 98.7 F 03/07/19 12:00 Pulse 81 03/07/19 12:00 Resp 16 03/07/19 12:00 BP 113/67 03/07/19 12:00 Pulse Ox 97 03/07/19 12:00 Intake & Output 03/06/19 03/07/19 03/07/19 18:59 06:59 18:59 Intake Total 1347 206.333 Output Total 2100 2700 800 Balance -753 -2493.667 -800 Weight 116.4 kg Intake: Intake, IV Titration 150 156.333 Amount Furosemide 100 mg In 100 156.333 Sodium Chloride 0.9% 90 ml @ 10 MG/HR 10 mls/hr IV .Q10H [facility] Rx#: [id number] cefTRIAXone 1 gm In 50 Sodium Chloride 0.9% 50 ml @ 100 mls/hr IVPB Q24HR [facility] Rx#:[id number] Oral 1197 50 Output: Urine 2100 2700 800 Other: Voiding Method Toilet Urinal # Voids 2 1 - Exam No acute distress Decreased breath sounds bases S1-S2 heard Generalized edema - Labs CBC & Chem 7: 03/07/19 05:42 03/07/19 05:42 Labs: Abnormal Lab Results - Last 24 Hours (Table) 03/06/19 03/06/19 03/07/19 Range/Units 17:58 20:48 05:42 WBC 14.1 H (3.8-10.6) k/uL RBC 4.16 L (4.30-5.90) m/uL Hgb 10.7 L (13.0-17.5) gm/dL Hct 35.0 L (39.0-53.0) % MCHC 30.5 L (31.0-37.0) g/dL RDW 17.6 H (11.5-15.5) % Plt Count 482 H (150-450) k/uL Neutrophils # 8.7 H (1.3-7.7) k/uL Eosinophils # 2.5 H (0-0.7) k/uL Potassium (3.5-5.1) mmol/L Chloride (98-107) mmol/L Carbon Dioxide (22-30) mmol/L BUN (9-20) mg/dL Creatinine (0.66-1.25) mg/dL Glucose (74-99) mg/dL POC Glucose (mg/dL) 210 H 254 H (75-99) mg/dL 03/07/19 03/07/19 03/07/19 Range/Units 05:42 06:24 06:58 WBC (3.8-10.6) k/uL RBC (4.30-5.90) m/uL Hgb (13.0-17.5) gm/dL Hct (39.0-53.0) % MCHC (31.0-37.0) g/dL RDW (11.5-15.5) % Plt Count (150-450) k/uL Neutrophils # (1.3-7.7) k/uL Eosinophils # (0-0.7) k/uL Potassium 3.4 L (3.5-5.1) mmol/L Chloride 91 L (98-107) mmol/L Carbon Dioxide 39 H (22-30) mmol/L BUN 88 H (9-20) mg/dL Creatinine 1.83 H (0.66-1.25) mg/dL Glucose 49 L* (74-99) mg/dL POC Glucose (mg/dL) 63 L 116 H (75-99) mg/dL 03/07/19 Range/Units 12:07 WBC (3.8-10.6) k/uL RBC (4.30-5.90) m/uL Hgb (13.0-17.5) gm/dL Hct (39.0-53.0) % MCHC (31.0-37.0) g/dL RDW (11.5-15.5) % Plt Count (150-450) k/uL Neutrophils # (1.3-7.7) k/uL Eosinophils # (0-0.7) k/uL Potassium (3.5-5.1) mmol/L Chloride (98-107) mmol/L Carbon Dioxide (22-30) mmol/L BUN (9-20) mg/dL Creatinine (0.66-1.25) mg/dL Glucose (74-99) mg/dL POC Glucose (mg/dL) 249 H (75-99) mg/dL Assessment and Plan Assessment: #1 acute kidney injury secondary to type I cardiorenal syndrome. Creatinine stable #2 Anasarca secondary to decompensated CHF. Urine analysis no proteinuria #3 diabetes #4 hypertension #5 hypokalemic alkalosis secondary to diuretics Plan: #1 continue with Lasix drip and metolazone. #2 replace potassium #3 plan to switch to oral torsemide 40 mg by mouth daily along with metolazone possible by Friday #4 strict ins and outs # labs in the morning
[2019-03-07 17:37] LABS: Glucose,Whole Blood 365 mg/dL (75-99)
[2019-03-07 20:49] LABS: Glucose,Whole Blood 341 mg/dL (75-99)
[2019-03-07] MEDS: ATORVASTATIN 80 MG TAB PO SCH (20:50)
[2019-03-07] MEDS: OLANZapine 5 MG TAB PO SCH (20:50)
[2019-03-07] MEDS: lamoTRIgine 100 MG TAB PO SCH (20:50)
--- NOTE | 2019-03-07 23:07 | PN ---
PROGRESS NOTE DATE OF SERVICE: 03/07/2019. This 58-year-old gentleman who was admitted with CHF acute exacerbation with acute on chronic diastolic dysfunction is on Lasix drip at this time. No chest pain. No palpitations. No fever. Nephrology following the patient closely as well as Cardiology. PHYSICAL EXAM: Alert and oriented times three. Pulse is 87. Blood pressure 107/60. Respirations 16, temperature 97.1, pulse ox 98% on room air. HEENT: Conjunctivae normal. NECK: No jugular venous distention. CARDIOVASCULAR: S1, S2 muffled. RESPIRATORY: Breath sounds diminished in the bases. Bilateral scattered rhonchi and crackles. ABDOMEN is soft, obese, nontender. LEGS are no edema. No swelling. LAB STUDIES: WBC 14.2, hemoglobin 10.6, sodium 141, potassium 3.4. ASSESSMENT: 1. Congestive heart failure acute exacerbation with acute on chronic diastolic dysfunction, ejection fraction 50-55 percent on IV Lasix drip. 2. Chronic renal disease stage III. 3. Possible cardiorenal syndrome. 5. History of facial edema as well as dry skin throughout. Possible allergic reaction. 6. History of bilateral foot infection with cellulitis with gangrene diabetic foot. 7. History of amputation of toes of the left foot. 8. Lactic acid possibly multifactorial present on admission. 9. Increased WBC. 10.Anemia, normocytic. 11.Diabetes mellitus type 2. 12.Hypertension. 13.Hyperlipidemia. 14.History of recent suicidal attempts with laceration of the left wrist. 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 16.History of insomnia. 17.History of bipolar depression. 18.History of nicotine dependence. 19.Obesity, body mass index of 30. RECOMMENDATIONS AND DISCUSSION: Recommend to continue current medications, management and symptomatic treatment. Continue with metolazone and as well as Lasix drip. Closely monitor and p.o. The blood sugar is running low. I have adjusted the insulin dosage further. Guarded prognosis. Further recommendations to follow. The patient is on low-dose IV steroids also. MMODL / IJN: [id number] / OC
[2019-03-08 06:38] LABS: Calcium 8.4 mg/dL (8.4-10.2); Potassium 3.1 mmol/L (3.5-5.1)
[2019-03-08 06:53] LABS: Glucose,Whole Blood 356 mg/dL (75-99)
[2019-03-08] MEDS: PANTOPRAZOLE 40 MG TABLET PO SCH (07:00)
[2019-03-08] MEDS: INSULIN ASPART (NovoLOG) 100 UNIT/ML VIAL SQ SCH ×4 (07:01→12:27)
[2019-03-08 08:11] VITALS: TEMP 98.2
[2019-03-08] MEDS: methylPREDNISolone SOD SUCCI 40 MG/ML 1 ML VIAL IV SCH (08:14)
[2019-03-08] MEDS: SERTRALINE 50 MG TAB PO SCH (08:15)
[2019-03-08] MEDS: POTASSIUM CHLORIDE ER 20 MEQ TAB.ER PO SCH (08:15)
[2019-03-08] MEDS: ASPIRIN 81 MG PO SCH (08:15)
[2019-03-08] MEDS: METOPROLOL TARTRATE 25 MG TAB PO SCH (08:15)
[2019-03-08] MEDS: HEPARIN SODIUM,PORCINE 5,000 UNIT/ML 1 ML VIAL SQ SCH (08:15)
[2019-03-08] MEDS: LORATADINE 10 MG TAB PO SCH (08:15)
[2019-03-08] MEDS: METOLAZONE 5 MG TAB PO SCH (08:15)
[2019-03-08] MEDS: TRIAMCINOLONE 0.1% CREAM 80 GM TUBE TOPICAL SCH (08:16)
[2019-03-08] MEDS ORDERED: POTASSIUM CHLORIDE ER 20 MEQ TAB.ER PO STA (09:20)
--- NOTE | 2019-03-08 10:37 | P.PN ---
Subjective Patient is seen in follow-up for acute kidney injury and chronic any disease. Patient has chronic kidney disease stage III with baseline creatinine near 1.5 secondary to cardiorenal syndrome and diabetic kidney disease. Currently maintained on Lasix drip at 10 cc/hr and metolazone. Edema significantly improved since admission. Oral intake is good. No vomiting or diarrhea. He is nonoliguric. Renal function stable. Vital signs are stable. General: The patient appeared well nourished and normally developed. HEENT: Head exam is unremarkable. Neck is without jugular venous distension. LUNGS: Lungs are clear to auscultation and percussion. Breath sounds decreased. HEART: Rate and Rhythm are regular. First and second heart sounds normal. No murmurs, rubs or gallops. ABDOMEN: Abdominal exam reveals normal bowel sounds. Non-tender. Obese. EXTREMITITES: 1+ edema. Objective - Vital Signs Vital signs: Vital Signs Temp 98.2 F 03/08/19 08:00 Pulse 81 03/08/19 08:00 Resp 17 03/08/19 08:00 BP 116/64 03/08/19 08:00 Pulse Ox 99 03/08/19 08:00 Intake & Output 03/07/19 03/08/19 03/08/19 18:59 06:59 18:59 Intake Total 1410 238 462 Output Total 3400 1350 1150 Balance -19898 Weight 116.6 kg Intake: Intake, IV Titration 150 Amount Furosemide 100 mg In 100 Sodium Chloride 0.9% 90 ml @ 10 MG/HR 10 mls/hr IV .Q10H [facility] Rx#: [id number] cefTRIAXone 1 gm In 50 Sodium Chloride 0.9% 50 ml @ 100 mls/hr IVPB Q24HR [facility] Rx#:[id number] Oral 1260 238 462 Output: Urine 3400 1350 1150 Other: Voiding Method Toilet Toilet Toilet Urinal Urinal Urinal # Voids 1 1 1 - Labs CBC & Chem 7: 03/07/19 05:42 03/08/19 05:55 Labs: Abnormal Lab Results - Last 24 Hours (Table) 03/07/19 03/07/19 03/07/19 Range/Units 12:07 17:30 20:48 Sodium (137-145) mmol/L Potassium (3.5-5.1) mmol/L Chloride (98-107) mmol/L Carbon Dioxide (22-30) mmol/L BUN (9-20) mg/dL Creatinine (0.66-1.25) mg/dL Glucose (74-99) mg/dL POC Glucose (mg/dL) 249 H 365 H 341 H (75-99) mg/dL 03/08/19 03/08/19 Range/Units 05:55 06:52 Sodium 135 L (137-145) mmol/L Potassium 3.1 L (3.5-5.1) mmol/L Chloride 89 L (98-107) mmol/L Carbon Dioxide 34 H (22-30) mmol/L BUN 92 H (9-20) mg/dL Creatinine 1.77 H (0.66-1.25) mg/dL Glucose 343 H (74-99) mg/dL POC Glucose (mg/dL) 356 H (75-99) mg/dL Assessment and Plan Plan: Assessment: 1. Acute kidney injury mostly prerenal secondary to cardiorenal syndrome. Renal function stable. Creatinine 1.77 today. 2. Chronic kidney disease stage III secondary to diabetic kidney disease and cardiorenal syndrome. Recent creatinine in the range of 1.3-1.6. 3. Volume overload. Improving with diuresis. 4. Diastolic CHF. 5. Diabetes mellitus. 6. Hypervolemic hyponatremia. Better. 7. Hypokalemia secondary to diuresis. Magnesium normal. Plan: Discontinue Lasix drip. Start IV Lasix 60 mg twice daily. Maintain metolazone 5 mg once daily. Low-salt diet and 1800 mL fluid restriction. Maintain potassium supplementation. Additional 80 mg once today. Repeat electrolytes in the morning. Daily weights. Strict I's and O's. Anticipate discharge soon. He can be discharged on Lasix 60 mg orally twice daily along with metolazone 5 mg once daily. Also continue with potassium s upplementation 20 mEq twice daily. He will need a repeat BMP and magnesium level checked within 2-3 days of discharge and follow up outpatient in the next 1 week.
[2019-03-08] MEDS ORDERED: FUROSEMIDE 10 MG/ML 10 ML VIAL IV SCH (10:45)
[2019-03-08] MEDS: INSULIN DETEMIR (LEVEMIR) 100 UNIT/ML SYR SQ SCH (10:51)
[2019-03-08] MEDS ORDERED: POTASSIUM CHLORIDE ER 20 MEQ TAB.ER PO ONE (11:00)
[2019-03-08 12:06] LABS: Glucose,Whole Blood 176 mg/dL (75-99)
[2019-03-08 12:45] VITALS: BP 130/73; PULSE 80; RESP 16
--- NOTE | 2019-03-08 16:18 | P.PN ---
Subjective Progress Note Date: 03/08/19 This is a 58-year-old gentleman with a past medical history significant for chronic diastolic congestive heart failure, diabetes, hypertension, dyslipidemia, and history of bipolar disorder, presented to the emergency room complaining of edema in the upper and lower extremities. The edema started about 2 weeks ago and has progressed. The patient did gain about 15 pounds within these 2 weeks. Beside that for the last 2 days he has been noticing increasing in the shortness of breath with exertion. No symptoms of chest pain or chest discomfort, dizziness, heart racing or fluttering, and no syncope. The patient does have osteomyelitis of the left foot and he underwent amputation of the left great toe and he has been followed by Dr. Mustafa. No history of coronary artery disease and prior coronary revascularization. No cardiac arrhythmia in the past. He was in the hospital in January 2018 where an echocardiogram was performed and revealed normal LV function was mild MR and mild TR and normal pulmonary artery systolic pressure. This time the chest x- ray showed findings consistent with CHF. The EKG showed sinus rhythm with low. The QRS. The rest of the blood work came in to be unremarkable except for mildly increased into creatinine which seems to be chronic. Beside that, the patient denies any fever or chills or cough. On examination, he does have extensive pitting edema of the upper and lower extremities with a component of cellulitis as well. Currently he is on Lasix IV. He stated that he was compliant with all of his medication and normally he put his medication in a box and take them everyday. Beside that he stated that he was compliant with his diet including salt intake. 03/03/2019 Patient was seen and examined this morning, initiated on IV Lasix drip today. I pressure 114/70 with a heart rate in the 80s, 95% on room air. Blood cell count 10.4, hemoglobin 10.5, platelet count 429. Sodium 137, potassium 4.2, BUN 83 and creatinine 2.1. 03/04/2019 Patient seen and examined this morning, weight is down 2 kg today. Continues to be on IV Lasix drip per Dr. Aragon. Blood pressure 110/70 with a heart rate in the 60s, 94% on room air. White blood cell count 4.9, hemoglobin 9.3, platelet count 338. Sodium 137, potassium 3.3, BUN 92 and creatinine 2.0, magnesium 2.3. 03/06/2019 Patient was seen and examined this morning, continues to be on IV Lasix drip overall well. Blood pressure 110/60 with a heart rate in the 70s, 99% on room air. White blood cell count 10.8, hemoglobin 9.7, platelet count 428. Sodium 142, potassium 3.4, BUN 88 and creatinine 1.8, magnesium 2.2. 03/08 2019 Seen and examined this morning, doing significantly well overall. Hemodynamically stable. Anticipating discharge home today. Objective - Vital Signs Vital signs: Vital Signs Temp 98.2 F 03/08/19 08:00 Pulse 80 03/08/19 12:00 Resp 16 03/08/19 12:00 BP 130/73 03/08/19 12:00 Pulse Ox 100 03/08/19 12:00 Intake & Output 03/07/19 03/08/19 03/08/19 18:59 06:59 18:59 Intake Total 1410 238 462 Output Total 3400 1350 1150 [facility] -1989 -2 -688 Weight 116.6 kg Intake: Intake, IV Titration 150 Amount Furosemide 100 mg In 100 Sodium Chloride 0.9% 90 ml @ 10 MG/HR 10 mls/hr IV .Q10H HELEN Rx#: [id number] cefTRIAXone 1 gm In 50 Sodium Chloride 0.9% 50 ml @ 100 mls/hr IVPB Q24HR HELEN Rx#:[id number] Oral 1260 238 462 Output: Urine 3400 1350 1150 Other: Voiding Method Toilet Toilet Toilet Urinal Urinal Urinal # Voids 1 1 1 - Exam PHYSICAL EXAMINATION: GENERAL: 68-year-old gentleman in no acute distress at the time of my examination HEENT: Head is atraumatic, normocephalic. Pupils equal, round. Sclera anicteric. Conjunctiva are clear. Mucous membranes of the mouth are moist. Neck is supple. There is elevated jugular venous pressure. No carotid bruit is heard. HEART EXAMINATION: Heart S1 S2 1 systolic murmur is heard CHEST EXAMINATION: Lungs reveal diminished air entry to bilateral bases ABDOMEN: Soft, nontender. Bowel sounds are heard. No organomegaly noted. EXTREMITIES: 2+ peripheral pulses with evidence of peripheral edema and no calf tenderness noted. NEUROLOGIC patient is awake, alert and oriented 3 . . - Labs CBC & Chem 7: 03/07/19 05:42 03/08/19 13:41 Labs: Abnormal Lab Results - Last 24 Hours (Table) 03/07/19 03/07/19 03/08/19 Range/Units 17:30 20:48 05:55 Sodium 135 L (137-145) mmol/L Potassium 3.1 L (3.5-5.1) mmol/L Chloride 89 L (98-107) mmol/L Carbon Dioxide 34 H (22-30) mmol/L BUN 92 H (9-20) mg/dL Creatinine 1.77 H (0.66-1.25) mg/dL Glucose 343 H (74-99) mg/dL POC Glucose (mg/dL) 365 H 341 H (75-99) mg/dL 03/08/19 03/08/19 Range/Units 06:52 12:02 Sodium (137-145) mmol/L Potassium (3.5-5.1) mmol/L Chloride (98-107) mmol/L Carbon Dioxide (22-30) mmol/L BUN (9-20) mg/dL Creatinine (0.66-1.25) mg/dL Glucose (74-99) mg/dL POC Glucose (mg/dL) 356 H 176 H (75-99) mg/dL Assessment and Plan Plan: Assessment #1 congestive heart failure exacerbation secondary to diastole dysfunction, acute on chronic #2 chronic renal failure seems to be stable #3 diabetes type 2 #4 history of bipolar disorder #5 multiple comorbid conditions Plan Cardiology's perspective, patient may be able to be discharged home once cleared by primary. We'll make him a follow-up appointment to see Dr. Fisher in the office post discharge. DNP note has been reviewed, I agree with a documented findings and plan of care. Patient was seen and examined.
--- NOTE | 2019-03-08 23:08 | DS ---
DISCHARGE SUMMARY DATE OF SERVICE: 03/08/2019 FINAL DIAGNOSES: 1. Congestive heart failure, acute exacerbation, with acute on chronic diastolic dysfunction, ejection fraction 50% to 55%, on IV Lasix drip. 2. Chronic kidney disease, stage III. 3. Possible cardiorenal syndrome. 4. History of facial edema as well as dry skin throughout, with possible allergic reaction. 5. History of bilateral foot infection with cellulitis with gangrene with a diabetic foot. 6. History of amputation of the toes on the left foot. 7. Lactic acidosis, possibly multifactorial, present on admission, improved. 8. Increased white count. 9. Anemia, normocytic. 10.Diabetes mellitus, type 2. 11.Hypertension. 12.Hyperlipidemia. 13.History of recent suicide attempts with laceration of the left wrist. 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 15.History of insomnia. 16.History of bipolar, depression. 17.History of nicotine dependence. 18.Obesity with body mass index of 30. DISCHARGE DISPOSITION: The patient will be discharged in stable condition with guarded prognosis. Total time 35 minutes. HISTORY OF PRESENT ILLNESS: This 58-year-old gentleman with a past medical history of multiple medical problems, as mentioned earlier, was admitted with significant shortness of breath as well as bilateral leg edema and generalized edema. The patient was treated with IV Lasix drip, and the patient improved significantly. 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 Of note, the patient has also had a significant skin reaction and a possible allergic reaction is suspected; however, Dermatology is not available. Recommended outpatient dermatology evaluation in conjunction with the [facility]. On exam, vitals are stable. CARDIOVASCULAR SYSTEM: S1, S2 muffled. ABDOMEN: Soft. Generalized edema present. Generalized skin excoriations also present. DISCHARGE ADVICE AND MEDICATIONS: 1. Diet is cardiac. 2. Activity limited until followup. 3. Fluid restriction to 1200 mL per 24 hours. 4. Lamictal 100 mg at bedtime. 5. Lantus 35 units subcutaneously daily. 6. NovoLog 5 units before supper. 7. Risperdal 4 mg p.o. at bedtime. 8. Zaroxolyn 5 mg p.o. daily. 9. Zoloft 50 mg p.o. daily. 10.Ecotrin 81 mg p.o. daily. 11.K-Dur 20 mEq p.o. b.i.d. 12.Kenalog cream, local application. 13.Lasix 60 mg p.o. b.i.d. 14.Lipitor 80 mg at bedtime. 15.Lopressor 25 mg p.o. b.i.d. 16.Medrol Dosepak as directed. 17.Protonix 40 mg p.o. daily. 18.Follow up with Dr. Aragon in 2-3 days. 19.Follow with Cardiology. 20.Follow with [facility], Dr. Salguero. 21.Follow with Dermatology as recommended. Once again, the patient will be discharged in stable condition with guarded prognosis. Total time taken 35 minutes. MMSARAHL / ALYCIAN: [id number] /
== END 2019-03-08 14:26 | disposition home health service (06) | DRG 291 ==
LOC: EC 10:39 → 3SCARD 13:23
PROVIDERS: ADMIT Hospitalist; ATTEND Hospitalist
PROC: 05HD33Z Insertion of Infusion Device into Right Cephalic Vein, Percutaneous Approach (ICD-10-PCS; principal; 2019-03-03 10:50)
PROC: 05HF33Z Insertion of Infusion Device into Left Cephalic Vein, Percutaneous Approach (ICD-10-PCS; 2019-03-04 11:10)
PROC: 05HF33Z Insertion of Infusion Device into Left Cephalic Vein, Percutaneous Approach (ICD-10-PCS; 2019-03-05)
DX: I13.0 Hypertensive heart and chronic kidney disease with heart failure and stage 1 through stage 4 chronic kidney disease, or unspecified chronic kidney disease (principal); I50.33 Acute on chronic diastolic (congestive) heart failure; N17.9 Acute kidney failure, unspecified; E87.1 Hypo-osmolality and hyponatremia; F31.30 Bipolar disorder, current episode depressed, mild or moderate severity, unspecified; L03.114 Cellulitis of left upper limb; L03.113 Cellulitis of right upper limb; L03.116 Cellulitis of left lower limb; L03.115 Cellulitis of right lower limb; E87.4 Mixed disorder of acid-base balance; E11.22 Type 2 diabetes mellitus with diabetic chronic kidney disease; E11.51 Type 2 diabetes mellitus with diabetic peripheral angiopathy without gangrene; N18.3 Chronic kidney disease, stage 3 (moderate); E11.621 Type 2 diabetes mellitus with foot ulcer; E11.649 Type 2 diabetes mellitus with hypoglycemia without coma; F20.9 Schizophrenia, unspecified; I08.1 Rheumatic disorders of both mitral and tricuspid valves; E87.6 Hypokalemia; L27.0 Generalized skin eruption due to drugs and medicaments taken internally; F43.10 Post-traumatic stress disorder, unspecified; D64.9 Anemia, unspecified; E78.5 Hyperlipidemia, unspecified; G51.0 Bell's palsy; G47.00 Insomnia, unspecified; T50.2X5A Adverse effect of carbonic-anhydrase inhibitors, benzothiadiazides and other diuretics, initial encounter; E66.9 Obesity, unspecified; Z68.39 Body mass index [BMI] 39.0-39.9, adult; Z79.82 Long term (current) use of aspirin; Z79.4 Long term (current) use of insulin; Z79.899 Other long term (current) drug therapy; Z89.422 Acquired absence of other left toe(s); Z91.5 Personal history of self-harm; Z98.890 Other specified postprocedural states; Z86.010 Personal history of colon polyps; Z87.891 Personal history of nicotine dependence; Z83.3 Family history of diabetes mellitus; Z83.49 Family history of other endocrine, nutritional and metabolic diseases; Z83.79 Family history of other diseases of the digestive system; Z82.49 Family history of ischemic heart disease and other diseases of the circulatory system; L97.529 Non-pressure chronic ulcer of other part of left foot with unspecified severity; Z91.81 History of falling
CPT/HCPCS: 36410; 36415; 71046; 76937; 80048; 80053; 81003; 83605; 83735; 83880; 84100; 84132; 84484; 85025; 85610; 85730; 93005; 96374; 96375; 99285

== ENCOUNTER 2019-03-15 09:15 | Inpatient (IN) | payer OTHER ==
[2019-03-15] MEDS ORDERED: NALOXONE 0.4 MG/ML 1 ML VIAL IV PRN (18:03)
[2019-03-15] MEDS ORDERED: HYDROmorphone 0.5 MG/0.5 ML SYRINGE IVP PRN (18:04)
[2019-03-15] MEDS ORDERED: TEMAZEPAM 15 MG CAP PO PRN (18:04)
[2019-03-15 18:47] LABS: Anisocytosis Slight; Basophils # (A) 0.1 k/uL (0-0.2); Basophils % (A) 0 %; Eosinophils # (A) 0.8 k/uL (0-0.7); Eosinophils % (A) 6 %; HCT 33.9 % (39.0-53.0); HGB 10.1 gm/dL (13.0-17.5); Hypochromasia Moderate; Lymphocytes # (A) 1.3 k/uL (1.0-4.8); Lymphocytes % (A) 10 %; MCH 24.8 pg (25.0-35.0); MCHC 29.8 g/dL (31.0-37.0); MCV 83.3 fL (80.0-100.0); Mean Platelet Volume 6.8; Monocytes # (A) 0.5 k/uL (0-1.0); Monocytes % (A) 4 %; Neutrophils # (A) 9.4 k/uL (1.3-7.7); Neutrophils % (A) 77 %; Platelet Count 306 k/uL (150-450); RBC 4.07 m/uL (4.30-5.90); WBC 12.1 k/uL (3.8-10.6)
[2019-03-15 18:55] LABS: Albumin 3.2 g/dL (3.5-5.0); Calcium 8.4 mg/dL (8.4-10.2); Magnesium 2.3 mg/dL (1.6-2.3); Potassium 3.6 mmol/L (3.5-5.1); Total Bilirubin 0.9 mg/dL (0.2-1.3)
[2019-03-15 20:49] LABS: Glucose,Whole Blood 307 mg/dL (75-99)
[2019-03-15 21:10] LABS: Appearance,Urine Clear (Clear); Bacteria,Urine Rare /hpf; Bilirubin,Urine Negative (Negative); Blood,Urine Negative (Negative); Color,Urine Yellow; Glucose,Urine (UA) Negative (Negative); Hyaline Casts,Urine 34 /lpf (0-2); Ketones,Urine Negative (Negative); Leukocyte Esterase,Urine Trace (Negative); Mucus,Urine Rare /hpf; Nitrite,Urine Negative (Negative); Protein,Urine 1+ (Negative); RBC,Urine 2 /hpf (0-5); Specific Gravity,Urine 1.016 (1.001-1.035); Squamous Epithelial Cell,Urine 7 /hpf (0-4); WBC,Urine 3 /hpf (0-5)
[2019-03-15] MEDS: HEPARIN SODIUM,PORCINE 5,000 UNIT/ML 1 ML VIAL SQ SCH (21:58)
[2019-03-15] MEDS: INSULIN ASPART (NovoLOG) 100 UNIT/ML VIAL SQ SCH (21:58)
[2019-03-15] MEDS: SODIUM CHLORIDE 0.9% 1,000 ML IV SCH (22:01)
--- NOTE | 2019-03-15 22:57 | HP ---
HISTORY AND PHYSICAL DATE OF SERVICE: 03/15/2019 CHIEF COMPLAINTS: Uncontrolled diabetes mellitus type 2 and as well as bilateral foot ulcers. HISTORY OF PRESENT ILLNESS: This 58-year-old gentleman with a past medical history of CHF, history of chronic kidney disease, history of cardiorenal syndrome, history of amputation, history of diabetes, hypertension, hyperlipidemia, history of Fowler's palsy, being followed by [facility] and Dr. Salguero in the outpatient setting was recently admitted to [facility] with CHF exacerbation. The patient was treated with IV Lasix. The patient improved significantly. Of note, the patient also had significant allergic reaction. Consultation could not be arranged because of insurance reasons. The patient is recommended to follow dermatology in the outpatient setting. The patient also following Dr. Irby for wound care clinic and the patient was evaluated by Dr. Irby and recommended the patient be admitted for further evaluation and treatment. There is no history of fever, rigors. No history of headache, loss of consciousness or seizures at this time. PAST HISTORY: Of CHF, chronic kidney disease, history of amputation, history of diabetes type 2, hypertension, hyperlipidemia, history of Fowler's palsy, insomnia, bipolar depression. MEDICATIONS ARE: Home medications are: 1. Synthroid 50 mcg p.o. daily. 2. Risperdal 4 mg q.h.s. 3. Medrol Dosepak. 4. Lamictal 100 mg p.o. q.h.s. 5. Kenalog 0.1 b.i.d. 6. Zoloft 50 mg p.o. daily. 7. K-Dur 20 mEq p.o. b.i.d. 8. Protonix 40 mg a.c. breakfast. 9. Lopressor 25 mg b.i.d. 10.Zaroxolyn 5 mg p.o. daily. 11.NovoLog FlexPen 5 units a.c. supper. 12.Lantus 35 units subcu daily. 13.Lasix 60 mg p.o. b.i.d. 14.Lipitor 80 mg q.h.s. 15.Aspirin 81 mg daily. ALLERGIES: None. FAMILY HISTORY: No history of heart disease or strokes in the family. History of gallbladder disease and and diabetes in the family. SOCIAL HISTORY: Previous history of smoking. No history of current smoking. No alcohol intake. REVIEW OF SYSTEMS: ENT: No diminished vision. No diminished hearing. CARDIOVASCULAR system: As mentioned earlier. RESPIRATORY: As mentioned earlier. GI no nausea or vomiting. no dysuria. NERVOUS SYSTEM: No numbness or weakness. ALLERGY/IMMUNOLOGY: No asthma or hayfever. MUSCULOSKELETAL as mentioned earlier. HEMATOLOGY/ONCOLOGY: No history of anemia. ENDOCRINE as mentioned earlier. CONSTITUTIONAL: As mentioned earlier. DERMATOLOGY: As mentioned earlier. RHEUMATOLOGY negative. PSYCHIATRY as mentioned earlier. PHYSICAL EXAMINATION: Alert and oriented x3. Blood pressure 100/70, respiration 16, temperature 98.2, pulse ox 94% on room air. HEENT are conjunctivae normal. Oral mucosa moist. Neck is no jugular venous distention. No carotid bruit. No lymph node enlargement. Cardiovascular system: S1, S2 muffled. No S3, S4. Ejection systolic murmur present. ABDOMEN: Soft, obese, nontender. No mass palpable. LEGS: Bilateral leg edema. Bilateral foot ulcers. NERVOUS SYSTEM: No focal deficit. SKIN: None as mentioned. Lymphatics none. JOINTS no acute deformity. LABS: Awaited at this time. ASSESSMENT: 1. Bilateral diabetic foot ulcers with failure of outpatient treatment. 2. Diabetes type 2, uncontrolled. 3. History of recent congestive heart failure acute exacerbation with acute on chronic diastolic dysfunction, ejection fraction 50-55 percent, treated with IV Lasix drip. 4. Chronic kidney stage 3 history. 5. History of cardiorenal syndrome. 6. Generalized itching and dryness and scaling because of possible allergy of undetermined etiology. 7. History of amputation of the toes on the left foot. 8. History of diabetes type 2. 9. Hypertension. 10.Hyperlipidemia. 11.History of recent suicide attempts laceration of the left wrist. 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 13.History of insomnia. 14.History of bipolar depression. 15.History of nicotine dependence. 16.Obesity with body mass index of 37.3. DISCUSSION/PLAN: This 58-year-old gentleman who presented with multiple complex medical issues, we will monitor the patient closely, continue the current medications, management and symptomatic treatment. I recommend resume the home medications, broad-spectrum IV antibiotics. Also recommend consult Dr. Irby and Infectious Disease. Monitor the patient closely. Otherwise, guarded prognosis because of multiple complex medical issues. Further recommendations to follow. A copy of dictation being forwarded to Dr. Salguero who is the following the patient at the [facility]. MMREGINA / ALYCIAN: [id number] /
[2019-03-16] MEDS: HEPARIN SODIUM,PORCINE 5,000 UNIT/ML 1 ML VIAL SQ SCH ×2 (07:15→21:16)
[2019-03-16] MEDS: PANTOPRAZOLE 40 MG TABLET PO SCH (07:15)
[2019-03-16] MEDS: INSULIN ASPART (NovoLOG) 100 UNIT/ML VIAL SQ SCH ×5 (07:24→21:16)
[2019-03-16 07:25] LABS: Glucose,Whole Blood 209 mg/dL (75-99)
[2019-03-16 10:45] LABS: Anisocytosis Slight; Basophils # (A) 0.1 k/uL (0-0.2); Basophils % (A) 0 %; Eosinophils # (A) 0.5 k/uL (0-0.7); Eosinophils % (A) 4 %; HCT 32.8 % (39.0-53.0); HGB 9.9 gm/dL (13.0-17.5); Hypochromasia Moderate; Lymphocytes # (A) 1.2 k/uL (1.0-4.8); Lymphocytes % (A) 10 %; MCH 24.9 pg (25.0-35.0); MCHC 30.3 g/dL (31.0-37.0); MCV 82.3 fL (80.0-100.0); Mean Platelet Volume 6.7; Monocytes # (A) 0.6 k/uL (0-1.0); Monocytes % (A) 5 %; Neutrophils # (A) 9.3 k/uL (1.3-7.7); Neutrophils % (A) 80 %; Platelet Count 318 k/uL (150-450); RBC 3.98 m/uL (4.30-5.90); RDW 17.9 % (11.5-15.5); WBC 11.7 k/uL (3.8-10.6)
[2019-03-16 10:49] LABS: Calcium 8.3 mg/dL (8.4-10.2); Potassium 3.6 mmol/L (3.5-5.1)
--- NOTE | 2019-03-16 10:58 | P.GSHP ---
History of Present Illness 58-year-old diabetic male patient came to the wound clinic with infected wound left foot big toe. This patient had a left big toe amputation done in 2 months ago patient last follow-up with me in my office patient was seen in the wound clinic to see Dr. Mustafa found to have a left big toe is infected with open wound he also has a right foot big toe eschar. Plan is a debridement of the wound Medical history history of diabetes, history of peripheral vascular disease Neck examination neck is supple no bruit appreciated Chest clear first and second sound normal good entry both lungs Abdomen is soft nontender Vascular examination femorals are 1+ tibial vessel by the Doppler patient has a marked swelling of the foot there is a infected open wound to the left foot big toe and also there is eschar noted on the right foot big toe Plan is debridement of the wound and and a deep culture risk and complication discussed Past Medical History Past Medical History: Heart Failure, Diabetes Mellitus, Hyperlipidemia, Hypertension, Neurologic Disorder Additional Past Medical History / Comment(s): IDDM type II, PVD, recent gangrene L great toe with amputation, 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 Kidney insufficiency History of Any Multi-Drug Resistant Organisms: None Reported Past Surgical History: Adenoidectomy, Tonsillectomy Additional Past Surgical History / Comment(s): L great toe amputation, L 5th toe amputation, L writst laceration repair, colonoscopy with benign polypectomies Past Anesthesia/Blood Transfusion Reactions: No Reported Reaction Past Psychological History: Anxiety, Bipolar, Depression Additional Psychological History / Comment(s): Pt resides with his parents. He currently is independent He has had a recent suicide attempt by cutting L wrist and was admitted to [facility]. He states he no longer feels suicidal. stopped smoking about three years ago. Denies significant alcohol or recreational drug use. His parents are highly involvedHis parents are highly involved. No animal exposures. No recent travel. Denied any sexual partners at this time.Denied any sexual partners at this time. Smoking Status: Former smoker Past Alcohol Use History: None Reported Additional Past Alcohol Use History / Comment(s): Pt started smoking in 1975 and quit in 2015. Past Drug Use History: None Reported Additional Drug Use History / Comment(s): Pt states he quit smoking marijuana and that he has not smoked marijuana in 4 months. - Past Family History Father Family Medical History: Diabetes Mellitus Additional Family Medical History / Comment(s): Father had gallbladder disease. He is 77yrs old. Mother Family Medical History: Hyperlipidemia Medications and Allergies Home Medications Medication Instructions Recorded Confirmed Type Atorvastatin [Lipitor] 80 mg PO HS 30 Days #30 tab 01/19/19 03/15/19 Rx Metoprolol Tartrate [Lopressor] 25 mg PO BID 30 Days #60 tab 01/19/19 03/15/19 Rx lamoTRIgine [LaMICtal] 100 mg PO HS 01/20/19 03/15/19 History Insulin Glargine,Hum.rec.anlog 35 unit SQ DAILY 01/29/19 03/15/19 History [Lantus Solostar] Aspirin 81 mg PO DAILY #30 chew 02/11/19 03/15/19 Rx Potassium Chloride ER [K-Dur 20] 20 meq PO BID #60 tab.er.prt 02/11/19 03/15/19 Rx Insulin Aspart [NovoLOG Flexpen] 5 units SQ AC-SUPPER 03/01/19 03/15/19 History Sertraline [Zoloft] 50 mg PO DAILY 03/01/19 03/15/19 History Pantoprazole [Protonix] 40 mg PO AC-BRKFST #30 tablet.dr 03/08/19 03/15/19 Rx Furosemide [Lasix] 40 mg PO DAILY@1500 03/15/19 03/15/19 History Furosemide [Lasix] 60 mg PO QAM 03/15/19 03/15/19 History Levothyroxine Sodium [Synthroid] 50 mcg PO DAILY 03/15/19 03/15/19 History Triamcinolone 0.1% Cream [Kenalog 1 applic TOPICAL BID 03/15/19 03/15/19 History 0.1% Cream] Allergies Allergy/AdvReac Type Severity Reaction Status Date / Time No Known Allergies Allergy Verified 03/15/19 19:40 Surgical - Exam Vital Signs Pulse Ox 95 03/15/19 18:03 Results - Labs 03/16/19 10:00 03/16/19 10:00 Abnormal Lab Results - Last 24 Hours (Table) 03/15/19 03/15/19 03/15/19 Range/Units 18:18 18:18 20:45 WBC 12.1 H (3.8-10.6) k/uL RBC 4.07 L (4.30-5.90) m/uL Hgb 10.1 L (13.0-17.5) gm/dL Hct 33.9 L (39.0-53.0) % MCH 24.8 L (25.0-35.0) pg MCHC 29.8 L (31.0-37.0) g/dL RDW 18.0 H (11.5-15.5) % Neutrophils # 9.4 H (1.3-7.7) k/uL Eosinophils # 0.8 H (0-0.7) k/uL Sodium 136 L (137-145) mmol/L Chloride 89 L (98-107) mmol/L Carbon Dioxide 34 H (22-30) mmol/L BUN 92 H (9-20) mg/dL Creatinine 1.61 H (0.66-1.25) mg/dL Glucose 206 H (74-99) mg/dL POC Glucose (mg/dL) (75-99) mg/dL Calcium (8.4-10.2) mg/dL Alkaline Phosphatase 176 H (38-126) U/L Total Protein 6.0 L (6.3-8.2) g/dL Albumin 3.2 L (3.5-5.0) g/dL Urine Protein 1+ H (Negative) Ur Leukocyte Esterase Trace H (Negative) Ur Squamous Epith Cells 7 H (0-4) /hpf Urine Bacteria Rare H (None) /hpf Hyaline Casts 34 H (0-2) /lpf Urine Mucus Rare H (None) /hpf 03/15/19 03/16/19 03/16/19 Range/Units 20:48 07:23 10:00 WBC 11.7 H (3.8-10.6) k/uL RBC 3.98 L (4.30-5.90) m/uL Hgb 9.9 L (13.0-17.5) gm/dL Hct 32.8 L (39.0-53.0) % MCH 24.9 L (25.0-35.0) pg MCHC 30.3 L (31.0-37.0) g/dL RDW 17.9 H (11.5-15.5) % Neutrophils # 9.3 H (1.3-7.7) k/uL Eosinophils # (0-0.7) k/uL Sodium (137-145) mmol/L Chloride (98-107) mmol/L Carbon Dioxide (22-30) mmol/L BUN (9-20) mg/dL Creatinine (0.66-1.25) mg/dL Glucose (74-99) mg/dL POC Glucose (mg/dL) 307 H 209 H (75-99) mg/dL Calcium (8.4-10.2) mg/dL Alkaline Phosphatase (38-126) U/L Total Protein (6.3-8.2) g/dL Albumin (3.5-5.0) g/dL Urine Protein (Negative) Ur Leukocyte Esterase (Negative) Ur Squamous Epith Cells (0-4) /hpf Urine Bacteria (None) /hpf Hyaline Casts (0-2) /lpf Urine Mucus (None) /hpf 03/16/19 Range/Units 10:00 WBC (3.8-10.6) k/uL RBC (4.30-5.90) m/uL Hgb (13.0-17.5) gm/dL Hct (39.0-53.0) % MCH (25.0-35.0) pg MCHC (31.0-37.0) g/dL RDW (11.5-15.5) % Neutrophils # (1.3-7.7) k/uL Eosinophils # (0-0.7) k/uL Sodium 135 L (137-145) mmol/L Chloride 89 L (98-107) mmol/L Carbon Dioxide 35 H (22-30) mmol/L BUN 89 H (9-20) mg/dL Creatinine 1.51 H (0.66-1.25) mg/dL Glucose 171 H (74-99) mg/dL POC Glucose (mg/dL) (75-99) mg/dL Calcium 8.3 L (8.4-10.2) mg/dL Alkaline Phosphatase (38-126) U/L Total Protein (6.3-8.2) g/dL Albumin (3.5-5.0) g/dL Urine Protein (Negative) Ur Leukocyte Esterase (Negative) Ur Squamous Epith Cells (0-4) /hpf Urine Bacteria (None) /hpf Hyaline Casts (0-2) /lpf Urine Mucus (None) /hpf Diabetes panel 03/15/19 03/16/19 Range/Units 18:18 10:00 Sodium 136 L 135 L (137-145) mmol/L Potassium 3.6 3.6 (3.5-5.1) mmol/L Chloride 89 L 89 L (98-107) mmol/L Carbon Dioxide 34 H 35 H (22-30) mmol/L BUN 92 H 89 H (9-20) mg/dL Creatinine 1.61 H 1.51 H (0.66-1.25) mg/dL Glucose 206 H 171 H (74-99) mg/dL Calcium 8.4 8.3 L (8.4-10.2) mg/dL AST 23 (17-59) U/L ALT 39 (21-72) U/L Alkaline Phosphatase 176 H (38-126) U/L Total Protein 6.0 L (6.3-8.2) g/dL Albumin 3.2 L (3.5-5.0) g/dL Calcium panel 03/15/19 03/16/19 Range/Units 18:18 10:00 Calcium 8.4 8.3 L (8.4-10.2) mg/dL Albumin 3.2 L (3.5-5.0) g/dL Pituitary panel 03/15/19 03/16/19 Range/Units 18:18 10:00 Sodium 136 L 135 L (137-145) mmol/L Potassium 3.6 3.6 (3.5-5.1) mmol/L Chloride 89 L 89 L (98-107) mmol/L Carbon Dioxide 34 H 35 H (22-30) mmol/L BUN 92 H 89 H (9-20) mg/dL Creatinine 1.61 H 1.51 H (0.66-1.25) mg/dL Glucose 206 H 171 H (74-99) mg/dL Calcium 8.4 8.3 L (8.4-10.2) mg/dL Adrenal panel 03/15/19 03/16/19 Range/Units 18:18 10:00 Sodium 136 L 135 L (137-145) mmol/L Potassium 3.6 3.6 (3.5-5.1) mmol/L Chloride 89 L 89 L (98-107) mmol/L Carbon Dioxide 34 H 35 H (22-30) mmol/L BUN 92 H 89 H (9-20) mg/dL Creatinine 1.61 H 1.51 H (0.66-1.25) mg/dL Glucose 206 H 171 H (74-99) mg/dL Calcium 8.4 8.3 L (8.4-10.2) mg/dL Total Bilirubin 0.9 (0.2-1.3) mg/dL AST 23 (17-59) U/L ALT 39 (21-72) U/L Alkaline Phosphatase 176 H (38-126) U/L Total Protein 6.0 L (6.3-8.2) g/dL Albumin 3.2 L (3.5-5.0) g/dL
[2019-03-16] MEDS ORDERED: ceFAZolin 2 GM in SODIUM CHLORIDE 0.9% 100 ML IVPB ONE (11:32)
[2019-03-16] MEDS ORDERED: ceFAZolin IN SWFI 2 GM/20 ML SYRINGE IVP ONE (11:45)
[2019-03-16 11:46] LABS: Glucose,Whole Blood 178 mg/dL (75-99)
[2019-03-16] MEDS ORDERED: LIDOCAINE 1% INJ 10MG/ML (20 ML MDV) ONE (11:53)
[2019-03-16] MEDS ORDERED: KETAMINE 10 MG/ML 20 ML VIAL ONE (11:53)
[2019-03-16] MEDS ORDERED: PROPOFOL 10 MG/ML 20 ML VIAL IV ONE (11:53)
[2019-03-16] MEDS ORDERED: MIDAZOLAM 2 MG/2 ML VIAL ONE (11:53)
[2019-03-16] MEDS: SODIUM CHLORIDE 0.9% 1,000 ML IV SCH ×2 (11:54→12:08)
[2019-03-16] MEDS ORDERED: BUPIVACAINE (PF) 0.5% 30 ML VIAL SQ ONE (12:25)
[2019-03-16 13:00] LABS: Glucose,Whole Blood 153 mg/dL (75-99)
--- NOTE | 2019-03-16 13:03 | PCN ---
PROCEDURE NOTE PREOPERATIVE DIAGNOSIS: Infected stump of the left big toe amputation. OPERATION: Debridement of the wound and this patient had a left big toe done in the past. Patient developed infected wound to the big toe. Patient was seen in the Wound Clinic and was admitted, brought to the operating room. Left foot was prepped and draped in usual sterile manner 1% lidocaine was infiltrated under IV sedation. Using a knife, we did the debridement. There was devitalized tissue present at the stump of the big toe, which was excised with a knife. All the devitalized tissue was removed. We took some tissue and sent for deep cultures. Since this was an infected wound, after debridement we kept the wound open. We will be using EKOS silver and wound VAC, iodoform gauze was placed to the bed of the wound and dressing applied. Patient tolerated the procedure well. MMSARAHL / ALYCIAN: [id number] /
--- NOTE | 2019-03-16 14:33 | P.PN ---
Subjective Progress Note Date: 03/16/19 Principal diagnosis: This is a 58-year-old gentleman with a past medical history of uncontrolled diabetes mellitus type 2 and bilateral foot ulcers. Patient was admitted for gangrene of the right foot. Patient is being followed and treated by Dr. Irby and is awaiting treatment at this time. Patient is to go for a debridement sometime this afternoon. Patient denies any chest pain, palpitations, and no fever at this time Physical examination: On exam patient is alert and oriented 3, temperature is 98.2F, pulse is 89, respirations 20, blood pressure 117/56, pulse ox is 97% on room air. Patient is anxiously awaiting treatment as he was told it would be sometime today. HEENT: Conjunctivae normal Neck: No jugular vein distention Cardiovascular: S1, S2 muffled Abdomen: Soft, obese, nontender Legs: Bilateral leg edema noted, bilateral foot ulcers Nervous system: No focal deficit Skin: As mentioned previously Labs: WBCs 11.7, current blood sugar 178 Assessment: 1. Bilateral diabetic foot ulcers with failure of outpatient treatment. 2. Diabetes type 2, uncontrolled 3. History of recent congestive heart failure acute exacerbation with acute on chronic diastolic dysfunction, ejection fraction 50-55%, treated with IV Lasix drip 4. Chronic kidney disease stage III history 5. History of cardiorenal syndrome 6. Generalized itching and dried dryness with scaling due to possible ALLERGY of undetermined etiology 7. History of amputation of the toes on the left foot. 8. Hypertension 9. History of diabetes type 2 10. Hyperlipidemia 11. History of recent suicide attempts to lacerations of the left wrist. 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 History of insomnia 14. History of bipolar depression 15. History of nicotine dependence 16. Obesity with body mass index of 37.3 Recommendations and discussion: Patient is to go for debridement of the right foot with Dr. Irby and will await report,. We will continue to monitor the patient closely, continue the current medications, management, and symptomatic treatment. Continue with home medications and IV antibiotics. Await consult with infectious disease. Guarded prognosis because of the multiple complex medical issues. Further recommendations to follow. Patient is a Dr. Salguero patient who is [facility]. Objective - Vital Signs Vital signs: Vital Signs Temp 97 F L 03/16/19 12:43 Pulse 83 03/16/19 12:58 Resp 16 03/16/19 12:58 BP 123/75 03/16/19 12:58 Pulse Ox 98 03/16/19 12:58 Intake & Output 03/15/19 03/16/19 03/16/19 18:59 06:59 18:59 Intake Total 250 Output Total 10 Balance 240 Weight 117.934 kg Intake: IV 250 Output: Estimated Blood Loss 10 Other: Voiding Method Toilet # Voids 2 # Bowel Movements 0 - Labs CBC & Chem 7: 03/16/19 10:00 03/16/19 10:00 Labs: Abnormal Lab Results - Last 24 Hours (Table) 03/15/19 03/15/19 03/15/19 Range/Units 18:18 18:18 20:45 WBC 12.1 H (3.8-10.6) k/uL RBC 4.07 L (4.30-5.90) m/uL Hgb 10.1 L (13.0-17.5) gm/dL Hct 33.9 L (39.0-53.0) % MCH 24.8 L (25.0-35.0) pg MCHC 29.8 L (31.0-37.0) g/dL RDW 18.0 H (11.5-15.5) % Neutrophils # 9.4 H (1.3-7.7) k/uL Eosinophils # 0.8 H (0-0.7) k/uL Sodium 136 L (137-145) mmol/L Chloride 89 L (98-107) mmol/L Carbon Dioxide 34 H (22-30) mmol/L BUN 92 H (9-20) mg/dL Creatinine 1.61 H (0.66-1.25) mg/dL Glucose 206 H (74-99) mg/dL POC Glucose (mg/dL) (75-99) mg/dL Calcium (8.4-10.2) mg/dL Alkaline Phosphatase 176 H (38-126) U/L Total Protein 6.0 L (6.3-8.2) g/dL Albumin 3.2 L (3.5-5.0) g/dL Urine Protein 1+ H (Negative) Ur Leukocyte Esterase Trace H (Negative) Ur Squamous Epith Cells 7 H (0-4) /hpf Urine Bacteria Rare H (None) /hpf Hyaline Casts 34 H (0-2) /lpf Urine Mucus Rare H (None) /hpf 03/15/19 03/16/19 03/16/19 Range/Units 20:48 07:23 10:00 WBC 11.7 H (3.8-10.6) k/uL RBC 3.98 L (4.30-5.90) m/uL Hgb 9.9 L (13.0-17.5) gm/dL Hct 32.8 L (39.0-53.0) % MCH 24.9 L (25.0-35.0) pg MCHC 30.3 L (31.0-37.0) g/dL RDW 17.9 H (11.5-15.5) % Neutrophils # 9.3 H (1.3-7.7) k/uL Eosinophils # (0-0.7) k/uL Sodium (137-145) mmol/L Chloride (98-107) mmol/L Carbon Dioxide (22-30) mmol/L BUN (9-20) mg/dL Creatinine (0.66-1.25) mg/dL Glucose (74-99) mg/dL POC Glucose (mg/dL) 307 H 209 H (75-99) mg/dL Calcium (8.4-10.2) mg/dL Alkaline Phosphatase (38-126) U/L Total Protein (6.3-8.2) g/dL Albumin (3.5-5.0) g/dL Urine Protein (Negative) Ur Leukocyte Esterase (Negative) Ur Squamous Epith Cells (0-4) /hpf Urine Bacteria (None) /hpf Hyaline Casts (0-2) /lpf Urine Mucus (None) /hpf 03/16/19 03/16/19 03/16/19 Range/Units 10:00 11:41 12:57 WBC (3.8-10.6) k/uL RBC (4.30-5.90) m/uL Hgb (13.0-17.5) gm/dL Hct (39.0-53.0) % MCH (25.0-35.0) pg MCHC (31.0-37.0) g/dL RDW (11.5-15.5) % Neutrophils # (1.3-7.7) k/uL Eosinophils # (0-0.7) k/uL Sodium 135 L (137-145) mmol/L Chloride 89 L (98-107) mmol/L Carbon Dioxide 35 H (22-30) mmol/L BUN 89 H (9-20) mg/dL Creatinine 1.51 H (0.66-1.25) mg/dL Glucose 171 H (74-99) mg/dL POC Glucose (mg/dL) 178 H 153 H (75-99) mg/dL Calcium 8.3 L (8.4-10.2) mg/dL Alkaline Phosphatase (38-126) U/L Total Protein (6.3-8.2) g/dL Albumin (3.5-5.0) g/dL Urine Protein (Negative) Ur Leukocyte Esterase (Negative) Ur Squamous Epith Cells (0-4) /hpf Urine Bacteria (None) /hpf Hyaline Casts (0-2) /lpf Urine Mucus (None) /hpf
[2019-03-16] MEDS: ASPIRIN 81 MG PO SCH (16:13)
[2019-03-16] MEDS: SERTRALINE 50 MG TAB PO SCH (16:13)
[2019-03-16] MEDS: FUROSEMIDE 20 MG TAB PO SCH (16:13)
[2019-03-16 17:21] LABS: Glucose,Whole Blood 329 mg/dL (75-99)
[2019-03-16] MEDS: ceFAZolin IN SWFI 2 GM/20 ML SYRINGE IVP SCH (20:07)
[2019-03-16 20:32] LABS: Glucose,Whole Blood 440 mg/dL (75-99)
[2019-03-16] MEDS: POTASSIUM CHLORIDE ER 20 MEQ TAB.ER PO SCH (21:15)
[2019-03-16] MEDS: METOPROLOL TARTRATE 25 MG TAB PO SCH (21:16)
[2019-03-16] MEDS: ATORVASTATIN 80 MG TAB PO SCH (21:16)
[2019-03-16] MEDS: lamoTRIgine 100 MG TAB PO SCH (21:16)
[2019-03-16] MEDS: TRIAMCINOLONE 0.1% CREAM 80 GM TUBE TOPICAL SCH (21:23)
[2019-03-16 22:28] LABS: Glucose,Whole Blood 454 mg/dL (75-99)
[2019-03-16 23:09] LABS: Glucose,Whole Blood 420 mg/dL (75-99)
[2019-03-16] MEDS ORDERED: INSULIN REGULAR 100 UNIT in SODIUM CHLORIDE 0.9% 100 ML IV SCH (23:15)
[2019-03-16] MEDS: HYDROcodone/APAP 5-325MG 1 EACH TAB PO PRN (23:57)
[2019-03-17 00:09] LABS: Glucose,Whole Blood 351 mg/dL (75-99)
--- NOTE | 2019-03-17 00:12 | P.CONS ---
History of Present Illness - Reason for Consult Consult date: 03/16/19 Left big toe amputated stump wound infection Requesting physician: Sandoval Irby - Chief Complaint Left big toe stump wound and infection x few days - History of Present Illness Patient is a 58-year-old male who recently did have left big toe amputation for diabetic foot infection patient was evaluated in the wound care center yesterday with the patient was noticed to have infection of his left big toe stump subsequently the patient has been admitted directly to the hospital patient was evaluated by vascular surgery this morning and is status post debridement of his left big toe stump wound deep culture has been obtained patient has been started on cefazolin and infectious disease was consulted for further recommendation regarding antibiotic therapy, when also specifically to the patient what brought into the hospital mentioning that his left big toe was not being taken care of and has led to this infection patient did have neuropathy has denies significant pain to the left big toe amputee stump area did mention the some swelling and redness and some foul-smelling but not a lot of drainage patient denies having high-grade fever rigors and chills and currently denies having any diarrhea with antibiotic therapy Review of Systems Positive points has been mentioned in HPI rest of the systems negative Past Medical History Past Medical History: Heart Failure, Diabetes Mellitus, Hyperlipidemia, Hypertension, Neurologic Disorder Additional Past Medical History / Comment(s): IDDM type II, PVD, recent gangrene L great toe with amputation, 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 Kidney insufficiency History of Any Multi-Drug Resistant Organisms: None Reported Past Surgical History: Adenoidectomy, Tonsillectomy Additional Past Surgical History / Comment(s): L great toe amputation, L 5th toe amputation, L writst laceration repair, colonoscopy with benign polypectomies Past Anesthesia/Blood Transfusion Reactions: No Reported Reaction Past Psychological History: Anxiety, Bipolar, Depression Additional Psychological History / Comment(s): Pt resides with his parents. He currently is independent He has had a recent suicide attempt by cutting L wrist and was admitted to [facility]. He states he no longer feels suicidal. stopped smoking about three years ago. Denies significant alcohol or recreational drug use. His parents are highly involvedHis parents are highly involved. No animal exposures. No recent travel. Denied any sexual partners at this time.Denied any sexual partners at this time. Smoking Status: Former smoker Past Alcohol Use History: None Reported Additional Past Alcohol Use History / Comment(s): Pt started smoking in 1975 and quit in 2015. Past Drug Use History: None Reported Additional Drug Use History / Comment(s): Pt states he quit smoking marijuana and that he has not smoked marijuana in 4 months. - Past Family History Father Family Medical History: Diabetes Mellitus Additional Family Medical History / Comment(s): Father had gallbladder disease. He is 77yrs old. Mother Family Medical History: Hyperlipidemia Medications and Allergies Home Medications Medication Instructions Recorded Confirmed Type Atorvastatin [Lipitor] 80 mg PO HS 30 Days #30 tab 01/19/19 03/15/19 Rx Metoprolol Tartrate [Lopressor] 25 mg PO BID 30 Days #60 tab 01/19/19 03/15/19 Rx lamoTRIgine [LaMICtal] 100 mg PO HS 01/20/19 03/15/19 History Insulin Glargine,Hum.rec.anlog 35 unit SQ DAILY 01/29/19 03/15/19 History [Lantus Solostar] Aspirin 81 mg PO DAILY #30 chew 02/11/19 03/15/19 Rx Potassium Chloride ER [K-Dur 20] 20 meq PO BID #60 tab.er.prt 02/11/19 03/15/19 Rx Insulin Aspart [NovoLOG Flexpen] 5 units SQ AC-SUPPER 03/01/19 03/15/19 History Sertraline [Zoloft] 50 mg PO DAILY 03/01/19 03/15/19 History Pantoprazole [Protonix] 40 mg PO AC-BRKFST #30 tablet.dr 03/08/19 03/15/19 Rx Furosemide [Lasix] 40 mg PO DAILY@1500 03/15/19 03/15/19 History Furosemide [Lasix] 60 mg PO QAM 03/15/19 03/15/19 History Levothyroxine Sodium [Synthroid] 50 mcg PO DAILY 03/15/19 03/15/19 History Triamcinolone 0.1% Cream [Kenalog 1 applic TOPICAL BID 03/15/19 03/15/19 History 0.1% Cream] Allergies Allergy/AdvReac Type Severity Reaction Status Date / Time No Known Allergies Allergy Verified 03/15/19 19:40 Physical Exam Vitals: Vital Signs Temp Pulse Pulse Resp BP BP Pulse Ox 03/16/19 13:35 96.9 F L 93 16 136/83 97 03/16/19 12:58 83 16 123/75 98 03/16/19 12:43 97 F L 81 18 117/68 99 03/16/19 11:21 98.2 F 89 20 117/56 97 03/16/19 05:10 97.9 F 90 18 111/71 93 L 03/15/19 20:50 97.3 F L 85 16 122/74 95 03/15/19 20:00 79 03/15/19 18:15 98.6 F 79 16 124/75 95 03/15/19 18:03 95 Intake and Output 03/16/19 03/16/19 03/16/19 06:59 14:59 22:59 Intake Total 250 Output Total 10 Balance 240 Intake: IV 250 Output: Estimated Blood Loss 10 Other: Voiding Method Toilet Toilet # Voids 2 # Bowel Movements 0 GENERAL DESCRIPTION: Middle-aged male lying in bed, no distress. No tachypnea or accessory muscle of respiration use. HEENT: Shows Pallor , no scleral icterus. Oral mucous membrane is dry. No pharyngeal erythema or thrush NECK: Trachea central, no thyromegaly. LUNGS: Unlabored breathing. Clear to auscultation anteriorly. No wheeze or crackle. HEART: S1, S2, regular rate and rhythm. No loud murmur ABDOMEN: Soft, no tenderness , guarding or rigidity, no organomegaly EXTREMITIES: Left foot as well as right big toe are currently dressed up no obvious drainage on the dressings SKIN: No rash, no masses palpable. NEUROLOGICAL: The patient is awake, alert, oriented x3, mood and affect normal Results CBC & Chem 7: 03/16/19 10:00 03/16/19 10:00 Labs: Abnormal Lab Results - Last 24 Hours (Table) 03/15/19 03/15/19 03/15/19 Range/Units 18:18 18:18 20:45 WBC 12.1 H (3.8-10.6) k/uL RBC 4.07 L (4.30-5.90) m/uL Hgb 10.1 L (13.0-17.5) gm/dL Hct 33.9 L (39.0-53.0) % MCH 24.8 L (25.0-35.0) pg MCHC 29.8 L (31.0-37.0) g/dL RDW 18.0 H (11.5-15.5) % Neutrophils # 9.4 H (1.3-7.7) k/uL Eosinophils # 0.8 H (0-0.7) k/uL Sodium 136 L (137-145) mmol/L Chloride 89 L (98-107) mmol/L Carbon Dioxide 34 H (22-30) mmol/L BUN 92 H (9-20) mg/dL Creatinine 1.61 H (0.66-1.25) mg/dL Glucose 206 H (74-99) mg/dL POC Glucose (mg/dL) (75-99) mg/dL Calcium (8.4-10.2) mg/dL Alkaline Phosphatase 176 H (38-126) U/L Total Protein 6.0 L (6.3-8.2) g/dL Albumin 3.2 L (3.5-5.0) g/dL Urine Protein 1+ H (Negative) Ur Leukocyte Esterase Trace H (Negative) Ur Squamous Epith Cells 7 H (0-4) /hpf Urine Bacteria Rare H (None) /hpf Hyaline Casts 34 H (0-2) /lpf Urine Mucus Rare H (None) /hpf 03/15/19 03/16/19 03/16/19 Range/Units 20:48 07:23 10:00 WBC 11.7 H (3.8-10.6) k/uL RBC 3.98 L (4.30-5.90) m/uL Hgb 9.9 L (13.0-17.5) gm/dL Hct 32.8 L (39.0-53.0) % MCH 24.9 L (25.0-35.0) pg MCHC 30.3 L (31.0-37.0) g/dL RDW 17.9 H (11.5-15.5) % Neutrophils # 9.3 H (1.3-7.7) k/uL Eosinophils # (0-0.7) k/uL Sodium (137-145) mmol/L Chloride (98-107) mmol/L Carbon Dioxide (22-30) mmol/L BUN (9-20) mg/dL Creatinine (0.66-1.25) mg/dL Glucose (74-99) mg/dL POC Glucose (mg/dL) 307 H 209 H (75-99) mg/dL Calcium (8.4-10.2) mg/dL Alkaline Phosphatase (38-126) U/L Total Protein (6.3-8.2) g/dL Albumin (3.5-5.0) g/dL Urine Protein (Negative) Ur Leukocyte Esterase (Negative) Ur Squamous Epith Cells (0-4) /hpf Urine Bacteria (None) /hpf Hyaline Casts (0-2) /lpf Urine Mucus (None) /hpf 03/16/19 03/16/19 03/16/19 Range/Units 10:00 11:41 12:57 WBC (3.8-10.6) k/uL RBC (4.30-5.90) m/uL Hgb (13.0-17.5) gm/dL Hct (39.0-53.0) % MCH (25.0-35.0) pg MCHC (31.0-37.0) g/dL RDW (11.5-15.5) % Neutrophils # (1.3-7.7) k/uL Eosinophils # (0-0.7) k/uL Sodium 135 L (137-145) mmol/L Chloride 89 L (98-107) mmol/L Carbon Dioxide 35 H (22-30) mmol/L BUN 89 H (9-20) mg/dL Creatinine 1.51 H (0.66-1.25) mg/dL Glucose 171 H (74-99) mg/dL POC Glucose (mg/dL) 178 H 153 H (75-99) mg/dL Calcium 8.3 L (8.4-10.2) mg/dL Alkaline Phosphatase (38-126) U/L Total Protein (6.3-8.2) g/dL Albumin (3.5-5.0) g/dL Urine Protein (Negative) Ur Leukocyte Esterase (Negative) Ur Squamous Epith Cells (0-4) /hpf Urine Bacteria (None) /hpf Hyaline Casts (0-2) /lpf Urine Mucus (None) /hpf Assessment and Plan Assessment: 1-patient with left big toe admitted to stump wound infection with secondary c ellulitis likely from gram-positive skin haydee however in view of underlying diabetes mellitus underlying gram-negative limits infection not entirely excluded however the patient currently does not look toxic or septic in this patient currently is not running any high-grade fever or elevated white count status post debridement of the wound with removal of the devitalized tissue Plan: 1-patient to continue with empiric cefazolin 2 g every 8 hours 2-wound cultures as well as clinical course will be followed closely and antibiotic adjusted further if needed 3-local wound care per surgery Thank you for this consultation will follow this patient along with you Time with Patient: Greater than 30
[2019-03-17 00:43] LABS: Glucose,Whole Blood 249 mg/dL (75-99)
[2019-03-17 02:42] LABS: Glucose,Whole Blood 94 mg/dL (75-99)
[2019-03-17] MEDS: ceFAZolin IN SWFI 2 GM/20 ML SYRINGE IVP SCH (04:13)
[2019-03-17 05:50] LABS: Glucose,Whole Blood 104 mg/dL (75-99)
[2019-03-17] MEDS: LEVOTHYROXINE 50 MCG TAB PO SCH (06:10)
[2019-03-17] MEDS: HYDROcodone/APAP 5-325MG 1 EACH TAB PO PRN ×3 (06:16→17:24)
[2019-03-17 07:07] LABS: Glucose,Whole Blood 108 mg/dL (75-99)
[2019-03-17] MEDS ORDERED: INSULIN ASPART (NovoLOG) 100 UNIT/ML VIAL SQ SCH ×2 (07:30)
[2019-03-17] MEDS: ASPIRIN 81 MG PO SCH (07:44)
[2019-03-17] MEDS: SERTRALINE 50 MG TAB PO SCH (07:44)
[2019-03-17] MEDS: PANTOPRAZOLE 40 MG TABLET PO SCH (07:44)
[2019-03-17] MEDS: FUROSEMIDE 20 MG TAB PO SCH (07:44)
[2019-03-17] MEDS: HEPARIN SODIUM,PORCINE 5,000 UNIT/ML 1 ML VIAL SQ SCH ×2 (07:45→20:34)
[2019-03-17] MEDS: METOPROLOL TARTRATE 25 MG TAB PO SCH ×2 (07:45→20:33)
[2019-03-17] MEDS: POTASSIUM CHLORIDE ER 20 MEQ TAB.ER PO SCH ×2 (07:45→20:34)
[2019-03-17] MEDS: INSULIN DETEMIR (LEVEMIR) 100 UNIT/ML SYR SQ SCH (07:45)
[2019-03-17] MEDS: INSULIN ASPART (NovoLOG) 100 UNIT/ML VIAL SQ SCH ×8 (07:45→20:42)
[2019-03-17] MEDS: TRIAMCINOLONE 0.1% CREAM 80 GM TUBE TOPICAL SCH ×2 (08:13→20:34)
[2019-03-17 09:09] LABS: Anisocytosis Slight; Basophils # (A) 0.1 k/uL (0-0.2); Basophils % (A) 1 %; Eosinophils # (A) 0.5 k/uL (0-0.7); Eosinophils % (A) 5 %; HCT 32.9 % (39.0-53.0); HGB 9.7 gm/dL (13.0-17.5); Hypochromasia Marked; Lymphocytes # (A) 0.9 k/uL (1.0-4.8); Lymphocytes % (A) 8 %; MCH 25.1 pg (25.0-35.0); MCHC 29.5 g/dL (31.0-37.0); MCV 84.9 fL (80.0-100.0); Mean Platelet Volume 7.4; Monocytes # (A) 0.5 k/uL (0-1.0); Monocytes % (A) 4 %; Neutrophils # (A) 9.3 k/uL (1.3-7.7); Neutrophils % (A) 82 %; Platelet Count 311 k/uL (150-450); Poikilocytosis Slight; RBC 3.87 m/uL (4.30-5.90); RDW 18.2 % (11.5-15.5); WBC 11.4 k/uL (3.8-10.6)
[2019-03-17 09:36] LABS: Calcium 8.2 mg/dL (8.4-10.2); Potassium 3.8 mmol/L (3.5-5.1)
[2019-03-17] MEDS: CEFEPIME 2 GM in SODIUM CHLORIDE 0.9% 100 ML IVPB SCH ×2 (11:32→20:34)
[2019-03-17 12:47] LABS: Glucose,Whole Blood 159 mg/dL (75-99)
[2019-03-17] MEDS: FUROSEMIDE 40 MG TAB PO SCH (15:07)
[2019-03-17] MEDS: SODIUM CHLORIDE 0.9% 1,000 ML IV SCH (15:08)
--- NOTE | 2019-03-17 16:11 | P.PN ---
Subjective Progress Note Date: 03/17/19 Principal diagnosis: This is a 58-year-old gentleman with a past medical history of uncontrolled diabetes mellitus type 2 and bilateral foot ulcers. Patient was admitted for gangrene of the right foot and patient is being treated by Dr. Irby. Patient had a debridement yesterday of the left great toe and cultures showed Pseudomonas. Dr. Irby was in this morning and perform the dressing change. Dressing was dry and intact. Patient is denying any chest pain, palpitations, shortness of breath, no fever at this time. Patient states that his blood sugars have been better today. Patient states that he is having an excessive amount of peeling of his skin on his arms. Objective - Vital Signs Vital signs: Vital Signs Temp 97.5 F L 03/17/19 15:00 Pulse 78 03/17/19 15:00 Resp 14 03/17/19 15:00 BP 111/73 03/17/19 15:00 Pulse Ox 97 03/17/19 15:00 Intake & Output 03/16/19 03/17/19 03/17/19 18:59 06:59 18:59 Intake Total 250 52.833 Output Total 10 Balance 240 52.833 Intake: IV 250 Intake, IV Titration 52.833 Amount Insulin Regular 100 unit 52.833 In Sodium Chloride 0.9% 100 ml @ Titrate IV .Q0M [facility] Rx#:[id number] Output: Estimated Blood Loss 10 Other: Voiding Method Toilet Toilet Incontinent # Voids 5 1 # Bowel Movements 0 - Exam On exam patient is alert and oriented 3. Patient is more pleasant today. HEENT: Head is atraumatic, normocephalic. Pupils equal, round. Sclerae is anicteric. NECK: Supple. No JVD. No lymphadenopathy. No thyromegaly. LUNGS: Lung sounds diminished. No wheezes or rhonchi. HEART: Regular rate and rhythm. No murmur. S1 and S2 muffled ABDOMEN: Soft. Non-tender. Bowel sounds are present. No masses. EXTREMITIES: No pedal edema. Bandages noted to bilateral feet that are dry and intact. NEUROLOGICAL: Patient is awake, alert and oriented x3. Cranial nerves 2 through 12 are grossly intact. - Constitutional General appearance: Present: cooperative, no acute distress, obese - Labs CBC & Chem 7: 03/17/19 08:37 03/17/19 08:37 Labs: Abnormal Lab Results - Last 24 Hours (Table) 03/16/19 03/16/19 03/16/19 Range/Units 17:19 20:31 22:26 WBC (3.8-10.6) k/uL RBC (4.30-5.90) m/uL Hgb (13.0-17.5) gm/dL Hct (39.0-53.0) % MCHC (31.0-37.0) g/dL RDW (11.5-15.5) % Neutrophils # (1.3-7.7) k/uL Lymphocytes # (1.0-4.8) k/uL Sodium (137-145) mmol/L Chloride (98-107) mmol/L BUN (9-20) mg/dL Creatinine (0.66-1.25) mg/dL Glucose (74-99) mg/dL POC Glucose (mg/dL) 329 H 440 H 454 H (75-99) mg/dL Calcium (8.4-10.2) mg/dL 03/16/19 03/17/19 03/17/19 Range/Units 23:07 00:07 00:42 WBC (3.8-10.6) k/uL RBC (4.30-5.90) m/uL Hgb (13.0-17.5) gm/dL Hct (39.0-53.0) % MCHC (31.0-37.0) g/dL RDW (11.5-15.5) % Neutrophils # (1.3-7.7) k/uL Lymphocytes # (1.0-4.8) k/uL Sodium (137-145) mmol/L Chloride (98-107) mmol/L BUN (9-20) mg/dL Creatinine (0.66-1.25) mg/dL Glucose (74-99) mg/dL POC Glucose (mg/dL) 420 H 351 H 249 H (75-99) mg/dL Calcium (8.4-10.2) mg/dL 03/17/19 03/17/19 03/17/19 Range/Units 05:49 07:04 08:37 WBC 11.4 H (3.8-10.6) k/uL RBC 3.87 L (4.30-5.90) m/uL Hgb 9.7 L (13.0-17.5) gm/dL Hct 32.9 L (39.0-53.0) % MCHC 29.5 L (31.0-37.0) g/dL RDW 18.2 H (11.5-15.5) % Neutrophils # 9.3 H (1.3-7.7) k/uL Lymphocytes # 0.9 L (1.0-4.8) k/uL Sodium (137-145) mmol/L Chloride (98-107) mmol/L BUN (9-20) mg/dL Creatinine (0.66-1.25) mg/dL Glucose (74-99) mg/dL POC Glucose (mg/dL) 104 H 108 H (75-99) mg/dL Calcium (8.4-10.2) mg/dL 03/17/19 03/17/19 Range/Units 08:37 11:59 WBC (3.8-10.6) k/uL RBC (4.30-5.90) m/uL Hgb (13.0-17.5) gm/dL Hct (39.0-53.0) % MCHC (31.0-37.0) g/dL RDW (11.5-15.5) % Neutrophils # (1.3-7.7) k/uL Lymphocytes # (1.0-4.8) k/uL Sodium 133 L (137-145) mmol/L Chloride 90 L (98-107) mmol/L BUN 83 H (9-20) mg/dL Creatinine 1.64 H (0.66-1.25) mg/dL Glucose 140 H (74-99) mg/dL POC Glucose (mg/dL) 159 H (75-99) mg/dL Calcium 8.2 L (8.4-10.2) mg/dL Microbiology - Last 24 Hours (Table) 03/16/19 12:20 Gram Stain - Preliminary Toe - Left First Tissue Culture - Preliminary Pseudomonas spec 03/16/19 12:20 Fungal Culture - Preliminary Toe - Left First 03/16/19 12:20 Anaerobic Culture - Preliminary Toe - Left First Assessment and Plan Assessment: 1. Bilateral diabetic foot ulcers with failure of outpatient treatment 2. Diabetes 2, uncontrolled 3. History of recent CHF with acute exacerbation with acute on chronic diastolic dysfunction, ejection fraction 50-55%, treated with IV Lasix drip 4. Chronic kidney disease stage III history 5. History of cardiorenal syndrome 6. Generalized itching and dried skin with scaling possibly due to an ALLERGY of undetermined etiology 7. History of amputation of the toes on the left foot 8. Hypertension 9. History of diabetes type 2 10. Hyperlipidemia 11. 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 History of insomnia 14. History of bipolar depression 15. History of nicotine dependence 16. Obesity with a body mass index of 37.3 17. Pseudomonas on cultures obtained from the left great toe Recommendations and discussion: Patient is to continue on IV antibiotics, continue with other current medications, continue with symptomatically treatment, and monitor blood sugars closely. Due to multiple medical issues patient has a guarded prognosis. Further recommendations to follow. After clearance from Dr. Irby's standpoin t the patient will possibly be discharged in 24-48 hours.
[2019-03-17 17:24] LABS: Glucose,Whole Blood 165 mg/dL (75-99)
--- NOTE | 2019-03-17 18:53 | PN ---
PROGRESS NOTE DATE OF SERVICE: 03/17/2019. REASON FOR FOLLOWUP: Left foot wound with secondary cellulitis. INTERVAL HISTORY: The patient is currently afebrile. The patient has been breathing comfortably. The patient denies having any chest pain or any cough. No abdominal pain or pain to the left foot area. PHYSICAL EXAMINATION: Blood pressure is 111/73, with a pulse of 78, temperature 97.5. He is 97% on room air. General description is a middle-aged male lying in bed in no distress. Respiratory system: Unlabored breathing, clear to auscultation anteriorly. Heart S1, S2. Regular rate and rhythm. Abdomen soft, no tenderness. The left foot is currently dressed up. No obvious drainage on the dressing. LABS: Hemoglobin 9.7, white count 11.4, BUN of 83, creatinine is 1.64. Wound culture with Pseudomonas species. DIAGNOSTIC IMPRESSION AND PLAN: Patient with left big toe amputated site wound infection. Patient wound cultures now showing Pseudomonas species. We will discontinue the Cefazolin, start the patient on cefepime 2 g. Local care to continue per vascular surgery. Revaluate the patient tomorrow. Continue supportive care. MMODL / IJN: [id number] /
[2019-03-17] MEDS: ATORVASTATIN 80 MG TAB PO SCH (20:34)
[2019-03-17] MEDS: lamoTRIgine 100 MG TAB PO SCH (20:34)
[2019-03-17] MEDS: ALPRAZolam 0.25 MG TAB PO PRN (20:42)
[2019-03-17 20:50] LABS: Glucose,Whole Blood 150 mg/dL (75-99)
[2019-03-18] MEDS: HYDROcodone/APAP 5-325MG 1 EACH TAB PO PRN ×3 (02:51→16:32)
[2019-03-18] MEDS: LEVOTHYROXINE 50 MCG TAB PO SCH (05:50)
[2019-03-18] MEDS: ALPRAZolam 0.25 MG TAB PO PRN ×3 (06:29→20:15)
[2019-03-18 07:02] LABS: Glucose,Whole Blood 51 mg/dL (75-99)
[2019-03-18] MEDS: INSULIN ASPART (NovoLOG) 100 UNIT/ML VIAL SQ SCH ×8 (07:02→20:47)
[2019-03-18 07:22] LABS: Glucose,Whole Blood 61 mg/dL (75-99)
[2019-03-18] MEDS: SERTRALINE 50 MG TAB PO SCH (07:24)
[2019-03-18] MEDS: POTASSIUM CHLORIDE ER 20 MEQ TAB.ER PO SCH ×2 (07:24→20:15)
[2019-03-18] MEDS: METOPROLOL TARTRATE 25 MG TAB PO SCH ×2 (07:24→20:17)
[2019-03-18] MEDS: FUROSEMIDE 20 MG TAB PO SCH (07:24)
[2019-03-18] MEDS: CEFEPIME 2 GM in SODIUM CHLORIDE 0.9% 100 ML IVPB SCH ×2 (07:25→20:16)
[2019-03-18] MEDS: HEPARIN SODIUM,PORCINE 5,000 UNIT/ML 1 ML VIAL SQ SCH ×2 (07:25→20:15)
[2019-03-18] MEDS: TRIAMCINOLONE 0.1% CREAM 80 GM TUBE TOPICAL SCH ×2 (07:26→20:16)
[2019-03-18] MEDS: PANTOPRAZOLE 40 MG TABLET PO SCH (07:30)
[2019-03-18] MEDS: ASPIRIN 81 MG PO SCH (07:30)
[2019-03-18] MEDS ORDERED: DEXTROSE 10 % IN WATER 250 ML IV ONE (07:41)
[2019-03-18 07:55] LABS: Glucose,Whole Blood 57 mg/dL (75-99)
[2019-03-18 08:05] LABS: Glucose,Whole Blood 118 mg/dL (75-99)
[2019-03-18 08:18] LABS: Anisocytosis Slight; Basophils # (A) 0.1 k/uL (0-0.2); Basophils % (A) 1 %; Eosinophils # (A) 0.5 k/uL (0-0.7); Eosinophils % (A) 6 %; HCT 36.5 % (39.0-53.0); HGB 10.9 gm/dL (13.0-17.5); Hypochromasia Marked; Lymphocytes # (A) 0.6 k/uL (1.0-4.8); Lymphocytes % (A) 6 %; MCV 83.5 fL (80.0-100.0); Mean Platelet Volume 6.5; Monocytes # (A) 0.4 k/uL (0-1.0); Monocytes % (A) 5 %; Neutrophils # (A) 7.8 k/uL (1.3-7.7); Neutrophils % (A) 82 %; Platelet Count 380 k/uL (150-450); RBC 4.38 m/uL (4.30-5.90); RDW 17.9 % (11.5-15.5); WBC 9.5 k/uL (3.8-10.6)
[2019-03-18 08:22] LABS: Calcium 8.1 mg/dL (8.4-10.2); Potassium 4.1 mmol/L (3.5-5.1)
[2019-03-18] MEDS: INSULIN DETEMIR (LEVEMIR) 100 UNIT/ML SYR SQ SCH (08:38)
[2019-03-18 10:48] LABS: Glucose,Whole Blood 237 mg/dL (75-99)
[2019-03-18 11:56] LABS: Glucose,Whole Blood 219 mg/dL (75-99)
--- NOTE | 2019-03-18 11:58 | PN ---
PROGRESS NOTE Noah Talbot is a 58-year-old diabetic male. The patient had a left foot big toe amputation done in the past. The stump was infected. The patient came to the [facility]. We did the debridement and revision of the stump. The patient has history of severe vascular disease and diabetes mellitus and peripheral vascular disease. The patient is under care of Dr. Te Mustafa for IV antibiotics. Today, we have changed the dressing. The wound is open. We did not close because of infection. We used Aquacel silver for the rope, IV antibiotic and local wound care. We will continue the same treatment. MMODL / IJN: [id number] /
[2019-03-18] MEDS: FUROSEMIDE 40 MG TAB PO SCH (14:54)
[2019-03-18 16:33] LABS: Glucose,Whole Blood 206 mg/dL (75-99)
[2019-03-18] MEDS: SODIUM CHLORIDE 0.9% 1,000 ML IV SCH (17:40)
--- NOTE | 2019-03-18 17:46 | PN ---
PROGRESS NOTE DATE OF SERVICE: 03/18/2019 This 58-year-old gentleman who was admitted with bilateral diabetic foot ulcers, also uncontrolled diabetes mellitus. The patient has fluctuating blood sugars. Dr. Irby is following the patient closely with debridement. Infectious Disease also following the patient closely. No chest pain. No palpitations. No fever. EXAM: Alert and oriented x3, pulse 75, blood pressure 102/60, respirations 16, temperature 97.4, pulse ox 95% on room air. HEENT: Conjunctivae normal. NECK: No jugular venous distention. CARDIOVASCULAR: S1, S2 muffled. RESPIRATORY: Diminished breath sounds at the bases. A few scattered rhonchi and crackles. ABDOMEN: Soft, obese. LEGS: Bilateral leg edema. NERVOUS SYSTEM: No focal deficits. LAB STUDIES: WBC 9.2, hemoglobin 10.9, sodium 138, potassium 4.1, creatinine is 1.57. ASSESSMENT: 1. Bilateral diabetic foot ulcers and failure of outpatient treatment. 2. Diabetes type 2, uncontrolled. 3. History of recent congestive heart failure with acute exacerbation, acute on chronic diastolic dysfunction, ejection fraction 50-55%. Treated with Lasix drip. 4. Chronic kidney disease stage 3 history. 5. History of cardiorenal syndrome. 6. Generalized itching and dry skin with scaling, possibly due to allergy of undetermined etiology. 7. History of amputation of the toes on the left foot. 8. Hypertension. 9. History of diabetes type 2. 10.Hyperlipidemia. 11.History of recent suicide attempts with laceration to the left wrist. 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 13.History of insomnia. 14.History of bipolar depression. 15.History of nicotine dependence. 16.Obesity with body mass index of 37.2. 17.Pseudomonas on cultures obtained from the left great toe. RECOMMENDATIONS AND DISCUSSION: Recommend to continue current medications, monitor and symptomatic treatment. Otherwise, continue the antibiotics. The Pseudomonas ID is pending at this time. Closely with Infectious Disease. Guarded prognosis because of multiple complex medical issues. Further recommendations to follow. MMODL / IJN: [id number] /
[2019-03-18] MEDS: ATORVASTATIN 80 MG TAB PO SCH (20:15)
[2019-03-18] MEDS: lamoTRIgine 100 MG TAB PO SCH (20:15)
[2019-03-18 20:39] LABS: Glucose,Whole Blood 137 mg/dL (75-99)
[2019-03-19] MEDS: LEVOTHYROXINE 50 MCG TAB PO SCH (05:25)
[2019-03-19 07:26] LABS: Glucose,Whole Blood 41 mg/dL (75-99)
[2019-03-19 07:38] LABS: Glucose,Whole Blood 41 mg/dL (75-99)
[2019-03-19 07:55] LABS: Glucose,Whole Blood 71 mg/dL (75-99)
[2019-03-19] MEDS: INSULIN ASPART (NovoLOG) 100 UNIT/ML VIAL SQ SCH ×8 (08:16→22:02)
[2019-03-19] MEDS: SERTRALINE 50 MG TAB PO SCH (08:25)
[2019-03-19] MEDS: POTASSIUM CHLORIDE ER 20 MEQ TAB.ER PO SCH ×2 (08:25→21:49)
[2019-03-19] MEDS: FUROSEMIDE 20 MG TAB PO SCH (08:25)
[2019-03-19] MEDS: INSULIN DETEMIR (LEVEMIR) 100 UNIT/ML SYR SQ SCH (08:25)
[2019-03-19] MEDS: PANTOPRAZOLE 40 MG TABLET PO SCH (08:25)
[2019-03-19] MEDS: HEPARIN SODIUM,PORCINE 5,000 UNIT/ML 1 ML VIAL SQ SCH ×2 (08:26→21:49)
[2019-03-19] MEDS: CEFEPIME 2 GM in SODIUM CHLORIDE 0.9% 100 ML IVPB SCH (08:26)
[2019-03-19] MEDS: ASPIRIN 81 MG PO SCH (08:26)
[2019-03-19] MEDS: TRIAMCINOLONE 0.1% CREAM 80 GM TUBE TOPICAL SCH ×2 (08:26→21:59)
[2019-03-19] MEDS: METOPROLOL TARTRATE 25 MG TAB PO SCH ×2 (08:26→21:49)
[2019-03-19] MEDS: ALPRAZolam 0.25 MG TAB PO PRN ×2 (09:09→17:52)
[2019-03-19] MEDS: HYDROcodone/APAP 5-325MG 1 EACH TAB PO PRN ×2 (09:09→17:52)
[2019-03-19 10:25] LABS: Glucose,Whole Blood 196 mg/dL (75-99)
[2019-03-19 11:29] LABS: Glucose,Whole Blood 204 mg/dL (75-99)
[2019-03-19 11:50] LABS: Anisocytosis Slight; Basophils % (A) 0 %; Eosinophils # (A) 0.3 k/uL (0-0.7); Eosinophils % (A) 3 %; HCT 33.4 % (39.0-53.0); HGB 9.8 gm/dL (13.0-17.5); Hypochromasia Marked; Lymphocytes # (A) 0.5 k/uL (1.0-4.8); Lymphocytes % (A) 6 %; MCH 24.8 pg (25.0-35.0); MCHC 29.4 g/dL (31.0-37.0); MCV 84.3 fL (80.0-100.0); Mean Platelet Volume 7.5; Monocytes # (A) 0.4 k/uL (0-1.0); Monocytes % (A) 4 %; Neutrophils # (A) 7.8 k/uL (1.3-7.7); Neutrophils % (A) 86 %; Platelet Count 361 k/uL (150-450); Poikilocytosis Slight; RBC 3.96 m/uL (4.30-5.90); RDW 17.5 % (11.5-15.5); WBC 9.1 k/uL (3.8-10.6)
[2019-03-19 12:03] LABS: Calcium 7.7 mg/dL (8.4-10.2); Potassium 4.6 mmol/L (3.5-5.1)
--- NOTE | 2019-03-19 12:25 | P.CN ---
Psychiatric Consult - . Consult date: 03/19/19 Consult:: 03/19/19 12:12 Identification: Patient is a 58-year-old male who is admitted for bilateral foot ulcers and uncontrolled diabetes Reason for Consult: Suicide attempt previously, depression History of Present Illness: Patient's chart was reviewed the patient was seen and interviewed in his room no family members were present. Patient states that he presented to the emergency room due to the foot ulcers and complained about his care at the [facility] in [place], patient states that he did see the psychiatrist at the [facility] in [place] after his discharge from the inpatient psychiatric unit in January of this year. Patient states he will not return there as it is too far to drive. Patient states he dislikes the caries been receiving at the [facility] in [place]. He is currently living with his parents since his admission to the psychiatric unit stating that his car was sold and they gave up his apartment. He states that he does have home healthcare while he is at home and he is unable to tell me why his medications have been changed, referring to his psychiatric meds. Patient is currently on sertraline 50 mg daily he is unable to tell me who prescribed this. Patient is unable to tell me why his medications were changed from Invega and Lamictal at the time of discharge in January. Patient reports that he's been depressed for years and has hidden it well and has not talked about it with anyone. He states that he never let anyone know that he was feeling this way and states that it's due to multiple things, not being in a relationship for over 10 years, a crappy job and no outside interests. He states that he puts on a mask so that no one knows how he's feeling. He states that he came to a head when he attempted suicide in December of this year by cutting his left wrist. Patient states he had never made a suicide attempt before and had never been in treatment for any symptoms of depression prior to this. Patient states that he doesn't think there is a pill made that will make him happy or not feel depressed. Patient complained of his treatment while he was on the inpatient psychiatric unit, states that he did not find it beneficial and felt no different at the time of discharge. Patient states that currently he is frustrated by living at home with his parents, his ongoing medical problems and denies any current suicidal ideation. Patient states he will never attempt again and has no current thoughts of doing so. Patient states that he is depressed and frustrated by his situation, his medical problems and the fact that he has no outside interests, is not able to work. Past Psychiatric History: Patient has 1 prior psychiatric admission here in January 2019 after suicide attempt by cutting his left wrist. Patient was on Invega and Lamictal at that time and is currently on Zoloft 50 mg Past Medical/Surgical History: Patient has a history of diabetes, congestive heart failure, chronic renal disease, hypertension, hyperlipidemia, hypothyroidism and is status post amputation on his left foot of his big and li ttle toe Family History: Patient states that his mother had a breakdown in the past unknown diagnosis; brother is diagnosed with schizophrenia and has never not lived with his parents. He denies any substance or alcohol use history in the family and no completed suicides Social History: Patient was born and raised in [place] and both of his parents are alive and he has 2 brothers and states that he is the oldest in the sibship of 3. 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 Patient has been twice and has 2 sons ages 36 and 32 and has no contact with them. He denies any abuse history. Patient is currently living with his parents since January of this year. Substance Use History: He denies any alcohol or substance abuse history Legal History: He denies any legal history Mental status: Appearance/Attitude: Patient is lying in a hospital bed, he has dressings on both feet and his lower legs are wrapped to his ankles, patient is in no acute distress, makes eye contact and was cooperative Behavior: Patient did not display any psychomotor agitation or retardation Speech/Language: Patient's speech is spontaneous of normal volume and rhythm and he is coherent Thought Process: Patient is goal-directed there is no evidence of loose association or flight of ideas Thought Content: Patient denies any auditory or visual hallucinations no paranoid or delusional ideation is elicited. Patient discusses having been depressed most of his life but not letting anyone know. States that he puts a mask on so that other people don't know how he's feeling and has never discussed this with anyone in the past. He states that he is depressed because he is alone, has a crappy job, now living with his parents, and has no outside interests her friends. He states that he attempted suicide in December but states he has no current intent to act and has no current thoughts. Patient states that he was unsatisfied with his treatment at the outpatient clinic for the [facility] and refuses to return to [place] [facility] clinic. Patient is unable to tell me how he responded to the medications that he was prescribed while an inpatient. Patient states that he lives with his parents and has home health care. Suicidal/Homicidal Ideation: Patient denies any current suicidal or homicidal ideation Sensorium/Cognition: Patient is alert and oriented to person, place, and time and his recent and remote memory are grossly intact Mood/Affect: Patient's mood is depressed, his affect appropriate to his mood Insight/Judgment: Patient's insight and judgment are fair Assessment: Patient endorses a history of depression for a number of years but states that he's hidden it from everyone until he attempted suicide in December of this year. He states that that was his only suicide attempt and states that he will never attempt again. He states that his treatment in the inpatient unit was not helpful to him and is unable to tell me if any of the medications he is been prescribed have been helpful. Patient is currently on Zoloft 50 mg but is unable to state who prescribed that for him. He states that he doubts that ther e is a pill around that will make him feel any better and he complains that he feels depressed due to being alone, having a crappy job, living with his parents, having no outside interests and has no desire for referral for outpatient psychiatry. Patient has been living with his parents and his discharge from the psychiatric unit in January. Patient does not endorse a history of manic symptoms with me, no psychotic symptoms and has 1 prior suicide attempt and 1 prior inpatient psychiatric admission. Diagnosis: Major depressive disorder, severity moderate Plan: Patient does not require one-to-one for suicide precautions as patient is not currently suicidal and was not a danger to himself or others. I will discontinue his suicide precautions at this time. Patient is currently on Zoloft 50 mg and I will increase the dose to 100 mg to see if he has any benefit from this medication. Patient currently has home health services at home, he declines referral for outpatient psychiatry and wishes he sees for his primary care to adjust his antidepressant medication. I discussed with the patient at home health services but also provide home social work if he in the future wishes to speak with someone. I increased his Zoloft to 100 mg in the morning the patient does not require inpatient psychiatric admission. Patient should be continued on Zoloft at this dose when he is discharged. I will sign off the case if there are any further questions or concerns please and hesitate to contact us. 03/19/19 12:17
[2019-03-19] MEDS: MEROPENEM 1 GM in SODIUM CHLORIDE 0.9% 100 ML IVPB SCH (15:38)
[2019-03-19] MEDS: FUROSEMIDE 40 MG TAB PO SCH (15:38)
--- NOTE | 2019-03-19 16:54 | P.PN ---
Subjective Progress Note Date: 03/19/19 Principal diagnosis: This is a 58-year-old male who was admitted with bilateral diabetic foot ulcers, also uncontrolled diabetes. Dr. Irby is following after debridement of the left foot. Patient is continuing to have fluctuating blood sugars that have been dropping down low each a.m. and then while awake has elevated blood sugars. Hypoglycemia and hyperglycemia protocols are being followed. Infectious disease is following the patient closely. Patient denies any chest pain or shortness of breath and has been afebrile. Physical exam: On exam patient is alert and oriented 3 vital signs are stable. HEENT: Conjunctivae normal, EOM intact Neck: No jugular venous distention, neck is supple Cardiovascular: S1, S2 muffled Respiratory: Manage lung sounds at the bases, some mild expiratory wheezing noted, few crackles scattered bilaterally. Abdomen: Soft, non-tender, protuberant Legs: Bilateral legs display edema, dressings were changed yesterday, dry, intact Nervous system: No focal deficits Skin: Dry, flaky Labs: Hemoglobin 9.8, WBC 9.1, sodium 133, BUN 98, creatinine 2.03, blood glucose 161 Assessment: 1. Bilateral diabetic foot ulcers and failure of outpatient treatment 2. Diabetes type 2, uncontrolled 3. History of recent congestive heart failure with acute exacerbation, acute on chronic diastolic dysfunction, ejection fraction is 50-55%. Treated with Lasix drip 4. Chronic kidney disease stage III history 5. History of cardiorenal syndrome 6. Generalized itching and dry skin with scaling, possibly due to ALLERGY of undetermined and etiology 7. History of amputation of the toes of the left foot 8. Hypertension 9. History of diabetes type 2 10. Hyperlipidemia 11. 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 History of insomnia 14. History of bipolar depression 15. History of nicotine dependence 16. Obesity with body mass index of 37.2 17. Pseudomonas on cultures obtained from left great toe final results still pending on the species Recommendations and discussion: Recommend continue current medications, IV antibiotics, and symptomatic treatment. Closely following with infectious disease and Dr. Irby. We'll continue to monitor closely and recheck morning labs. Guarded prognosis because of multiple complex medical issues. Further recommendations to follow. Objective - Vital Signs Vital signs: Vital Signs Temp 97.4 F L 03/19/19 14:06 Pulse 73 03/19/19 14:06 Resp 16 03/19/19 14:06 BP 116/52 03/19/19 14:06 Pulse Ox 97 03/19/19 14:06 Intake & Output 03/18/19 03/19/19 03/19/19 18:59 06:59 18:59 Intake Total 800 458 Output Total 1500 Balance -700 458 Weight 126 kg Intake: Oral 800 458 Output: Urine 1500 Other: Voiding Method Toilet Urinal # Voids 3 1 2 # Bowel Movements 1 - Labs CBC & Chem 7: 03/19/19 11:17 03/19/19 11:17 Labs: Abnormal Lab Results - Last 24 Hours (Table) 03/18/19 03/19/19 03/19/19 Range/Units 20:28 07:15 07:36 RBC (4.30-5.90) m/uL Hgb (13.0-17.5) gm/dL Hct (39.0-53.0) % MCH (25.0-35.0) pg MCHC (31.0-37.0) g/dL RDW (11.5-15.5) % Neutrophils # (1.3-7.7) k/uL Lymphocytes # (1.0-4.8) k/uL Sodium (137-145) mmol/L Chloride (98-107) mmol/L BUN (9-20) mg/dL Creatinine (0.66-1.25) mg/dL Glucose (74-99) mg/dL POC Glucose (mg/dL) 137 H 41 L 41 L (75-99) mg/dL Calcium (8.4-10.2) mg/dL 03/19/19 03/19/19 03/19/19 Range/Units 07:53 10:22 11:17 RBC 3.96 L (4.30-5.90) m/uL Hgb 9.8 L (13.0-17.5) gm/dL Hct 33.4 L (39.0-53.0) % MCH 24.8 L (25.0-35.0) pg MCHC 29.4 L (31.0-37.0) g/dL RDW 17.5 H (11.5-15.5) % Neutrophils # 7.8 H (1.3-7.7) k/uL Lymphocytes # 0.5 L (1.0-4.8) k/uL Sodium (137-145) mmol/L Chloride (98-107) mmol/L BUN (9-20) mg/dL Creatinine (0.66-1.25) mg/dL Glucose (74-99) mg/dL POC Glucose (mg/dL) 71 L 196 H (75-99) mg/dL Calcium (8.4-10.2) mg/dL 03/19/19 03/19/19 Range/Units 11:17 11:26 RBC (4.30-5.90) m/uL Hgb (13.0-17.5) gm/dL Hct (39.0-53.0) % MCH (25.0-35.0) pg MCHC (31.0-37.0) g/dL RDW (11.5-15.5) % Neutrophils # (1.3-7.7) k/uL Lymphocytes # (1.0-4.8) k/uL Sodium 133 L (137-145) mmol/L Chloride 92 L (98-107) mmol/L BUN 98 H (9-20) mg/dL Creatinine 2.03 H (0.66-1.25) mg/dL Glucose 161 H (74-99) mg/dL POC Glucose (mg/dL) 204 H (75-99) mg/dL Calcium 7.7 L (8.4-10.2) mg/dL Microbiology - Last 24 Hours (Table) 03/16/19 12:20 Anaerobic Culture - Final Toe - Left First Anaerobic Gm Negative Bacilli Anaerobic Gm Negative Bacilli#2 03/16/19 12:20 Fungal Culture - Preliminary Toe - Left First Rosa albicans 03/16/19 12:20 Gram Stain - Final Toe - Left First Tissue Culture - Final Pseudomonas aeruginosa Enterobacter hormaechei
[2019-03-19 16:58] LABS: Glucose,Whole Blood 113 mg/dL (75-99)
[2019-03-19] MEDS: SODIUM CHLORIDE 0.9% 1,000 ML IV SCH (17:48)
[2019-03-19 20:45] LABS: Glucose,Whole Blood 61 mg/dL (75-99)
[2019-03-19] MEDS: lamoTRIgine 100 MG TAB PO SCH (21:49)
[2019-03-19] MEDS: ATORVASTATIN 80 MG TAB PO SCH (21:49)
[2019-03-19 22:09] LABS: Glucose,Whole Blood 77 mg/dL (75-99)
--- NOTE | 2019-03-19 22:44 | PN ---
PROGRESS NOTE DATE OF SERVICE: 03/19/2019 REASON FOR FOLLOWUP: Left big toe amputation site wound infection. INTERVAL HISTORY: The patient is currently afebrile. The patient has been breathing comfortably. The patient denies having any chest pain or any cough. No abdominal pain or any worsening pain to the left big toe area. PHYSICAL EXAMINATION: Blood pressure is 139/82 with a pulse of 68, temperature 97.7. He is 98% on room air. General description is a middle-aged male lying in bed in no distress. RESPIRATORY SYSTEM: Unlabored breathing. Clear to auscultation anteriorly. HEART: S1, S2. Regular rate and rhythm. ABDOMEN: Soft. No tenderness. LABS: Hemoglobin is 9.8, white count 9.1. BUN of 98, creatinine 2.03. DIAGNOSTIC IMPRESSION AND PLAN: Patient with left big toe diabetic foot infection with an amputation site infection, status post debridement. Cultures have been positive for a [id number] enterobacter and Pseudomonas aeruginosa along with anaerobic gram-negative bacilli. At this point we will discontinue the cefepime and start the patient on meropenem 1 gram q.8. Local wound care with Aquacel Silver packing. May benefit from a wound V.A.C. Continue with supportive care. MMODL / IJN: [id number] /
[2019-03-20] MEDS: MEROPENEM 1 GM in SODIUM CHLORIDE 0.9% 100 ML IVPB SCH ×3 (01:01→21:55)
[2019-03-20] MEDS: HYDROcodone/APAP 5-325MG 1 EACH TAB PO PRN ×2 (01:05→09:19)
[2019-03-20] MEDS: ALPRAZolam 0.25 MG TAB PO PRN ×2 (01:05→13:00)
[2019-03-20] MEDS: LEVOTHYROXINE 50 MCG TAB PO SCH (06:20)
[2019-03-20 07:23] LABS: Glucose,Whole Blood 82 mg/dL (75-99)
[2019-03-20] MEDS: INSULIN ASPART (NovoLOG) 100 UNIT/ML VIAL SQ SCH ×8 (08:18→21:56)
[2019-03-20] MEDS: SERTRALINE 100 MG TAB PO SCH (09:18)
[2019-03-20] MEDS: ASPIRIN 81 MG PO SCH (09:19)
[2019-03-20] MEDS: PANTOPRAZOLE 40 MG TABLET PO SCH (09:19)
[2019-03-20] MEDS: METOPROLOL TARTRATE 25 MG TAB PO SCH ×2 (09:19→21:56)
[2019-03-20] MEDS: HEPARIN SODIUM,PORCINE 5,000 UNIT/ML 1 ML VIAL SQ SCH ×2 (09:19→21:56)
[2019-03-20] MEDS: POTASSIUM CHLORIDE ER 20 MEQ TAB.ER PO SCH ×2 (09:19→21:55)
[2019-03-20] MEDS: FUROSEMIDE 20 MG TAB PO SCH (09:19)
[2019-03-20] MEDS: INSULIN DETEMIR (LEVEMIR) 100 UNIT/ML SYR SQ SCH (09:20)
[2019-03-20] MEDS: TRIAMCINOLONE 0.1% CREAM 80 GM TUBE TOPICAL SCH ×2 (09:21→21:57)
[2019-03-20 09:23] LABS: Calcium 7.8 mg/dL (8.4-10.2); Potassium 5.4 mmol/L (3.5-5.1)
[2019-03-20 09:41] LABS: Anisocytosis Slight; Basophils % (A) 0 %; Eosinophils # (A) 0.3 k/uL (0-0.7); Eosinophils % (A) 4 %; HCT 32.1 % (39.0-53.0); HGB 9.6 gm/dL (13.0-17.5); Hypochromasia Marked; Lymphocytes # (A) 0.7 k/uL (1.0-4.8); Lymphocytes % (A) 10 %; MCH 24.9 pg (25.0-35.0); MCV 83.2 fL (80.0-100.0); Mean Platelet Volume 7.5; Monocytes # (A) 0.4 k/uL (0-1.0); Monocytes % (A) 5 %; Neutrophils # (A) 5.5 k/uL (1.3-7.7); Neutrophils % (A) 79 %; Platelet Count 363 k/uL (150-450); Poikilocytosis Slight; RBC 3.86 m/uL (4.30-5.90)
[2019-03-20 11:45] LABS: Glucose,Whole Blood 107 mg/dL (75-99)
[2019-03-20 16:43] LABS: Glucose,Whole Blood 220 mg/dL (75-99)
[2019-03-20] MEDS: FUROSEMIDE 40 MG TAB PO SCH (17:12)
[2019-03-20] MEDS: SODIUM CHLORIDE 0.9% 1,000 ML IV SCH (17:14)
--- NOTE | 2019-03-20 19:32 | PN ---
PROGRESS NOTE DATE OF SERVICE: 03/20/2019 This 58-year-old gentleman who was admitted after diabetic ulcer and history of CHF and multiple medical problems was also complaining of significant scaling at this time. No chest pain. No palpitations. No fever. EXAM: Alert and oriented times three. Pulse 70. Blood pressure 95/64, respiration 18, temperature 98.4, pulse ox 98% on room air. HEENT: Conjunctivae normal. NECK: No jugular venous distention. CARDIOVASCULAR: S1, S2. RESPIRATIONS: Breath sounds diminished in the bases. A few scattered rhonchi and crackles. ABDOMEN is soft, nontender. No mass palpable. LEGS: Bilateral leg edema. NERVOUS SYSTEM: No focal deficits. LABS: WBC 7, hemoglobin 9.6, sodium 130, potassium 5.4. Creatinine is 2.29. ASSESSMENT: 1. Bilateral diabetic foot ulcer with failure of outpatient treatment. 2. Diabetes type 2, uncontrolled. 3. History of recent congestive heart failure, acute exacerbation with acute on chronic diastolic dysfunction, ejection fraction 50-55 percent, treated with IV Lasix drip. 4. Chronic kidney disease stage 3 history. 5. History of cardiorenal syndrome. 6. Generalized itching and dry skin possibly allergy contact dermatitis of undetermined etiology. 7. History of amputation of the toes on the left foot. 8. Hypertension. 9. Diabetes type 2. 10.Hyperlipidemia. 11.History of recent suicide attempts/laceration to the left wrist. 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 13.History of insomnia. 14.History of bipolar depression. 15.History of nicotine dependence. 16.Obesity with body mass index 37.2. 17.Pseudomonas on cultures obtained from the left great toe. Final cultures are pending. RECOMMENDATIONS AND DISCUSSION: Recommend to continue current medications, management and symptomatic treatment as mentioned earlier. Continue with antibiotics. Multiple organisms are grown from the culture, Pseudomonas Enterobacter, Rosa albicans and as well as anaerobic gram- negative bacilli. We will continue the antibiotics. Closely monitor. I would also recommend a small dose of IV steroids for the contact dermatitis lesions. Otherwise, monitor blood sugars closely. Guarded prognosis because of multiple complex medical issues. Further recommendations to follow. MMODL / IJN: [id number] /
[2019-03-20 20:12] LABS: Glucose,Whole Blood 243 mg/dL (75-99)
[2019-03-20] MEDS: lamoTRIgine 100 MG TAB PO SCH (21:56)
[2019-03-20] MEDS: methylPREDNISolone SOD SUCCI 40 MG/ML 1 ML VIAL IV SCH (21:56)
[2019-03-20] MEDS: ATORVASTATIN 80 MG TAB PO SCH (21:56)
[2019-03-21] MEDS: LEVOTHYROXINE 50 MCG TAB PO SCH (06:00)
[2019-03-21 06:39] LABS: Anisocytosis Slight; Basophils % (A) 0 %; Eosinophils % (A) 0 %; HCT 32.2 % (39.0-53.0); HGB 9.5 gm/dL (13.0-17.5); Hypochromasia Marked; Lymphocytes # (A) 0.8 k/uL (1.0-4.8); Lymphocytes % (A) 9 %; MCH 24.8 pg (25.0-35.0); MCHC 29.6 g/dL (31.0-37.0); MCV 83.8 fL (80.0-100.0); Mean Platelet Volume 7.9; Monocytes # (A) 0.5 k/uL (0-1.0); Monocytes % (A) 6 %; Neutrophils # (A) 6.9 k/uL (1.3-7.7); Neutrophils % (A) 84 %; Platelet Count 366 k/uL (150-450); Poikilocytosis Slight; RBC 3.84 m/uL (4.30-5.90); RDW 17.7 % (11.5-15.5); WBC 8.3 k/uL (3.8-10.6)
[2019-03-21 06:54] LABS: Glucose,Whole Blood 189 mg/dL (75-99)
[2019-03-21 07:00] LABS: Calcium 8.5 mg/dL (8.4-10.2)
[2019-03-21 07:20] LABS: Potassium 6.5 mmol/L (3.5-5.1)
[2019-03-21] MEDS ORDERED: SODIUM POLYSTYRENE SULFONATE 15 GM/60 ML BOTTLE PO STA (07:29)
--- NOTE | 2019-03-21 09:21 | PN ---
PROGRESS NOTE This is a 58-year-old diabetic male who had an infected left big toe stump which he we did the revision. Patient is on vancomycin, under care of Infectious Disease. The patient also has a dry scab on right foot big toe, it is not infected. Today, we will change the dressing. We will use Aquacel silver. Patient BUN and creatinine high and Nephrology on consult. Could be due to vancomycin. In the meantime, we will continue with Aquacel Silver to the wound. If the patient goes home next week, then will follow with me in the wound clinic. MMODL / IJN: [id number] /
[2019-03-21] MEDS: MEROPENEM 1 GM in SODIUM CHLORIDE 0.9% 100 ML IVPB SCH (09:22)
[2019-03-21] MEDS: methylPREDNISolone SOD SUCCI 40 MG/ML 1 ML VIAL IV SCH (09:23)
[2019-03-21] MEDS: METOPROLOL TARTRATE 25 MG TAB PO SCH ×2 (09:23→20:32)
[2019-03-21] MEDS: FUROSEMIDE 20 MG TAB PO SCH (09:23)
[2019-03-21] MEDS: PANTOPRAZOLE 40 MG TABLET PO SCH (09:23)
[2019-03-21] MEDS: ASPIRIN 81 MG PO SCH (09:23)
[2019-03-21] MEDS: SERTRALINE 100 MG TAB PO SCH (09:32)
[2019-03-21] MEDS: HEPARIN SODIUM,PORCINE 5,000 UNIT/ML 1 ML VIAL SQ SCH ×2 (09:33→20:32)
[2019-03-21] MEDS: INSULIN ASPART (NovoLOG) 100 UNIT/ML VIAL SQ SCH ×8 (09:34→20:32)
[2019-03-21] MEDS: INSULIN DETEMIR (LEVEMIR) 100 UNIT/ML SYR SQ SCH (09:35)
[2019-03-21] MEDS: POTASSIUM CHLORIDE ER 20 MEQ TAB.ER PO SCH (10:41)
[2019-03-21 11:36] LABS: Glucose,Whole Blood 261 mg/dL (75-99)
[2019-03-21] MEDS: TRIAMCINOLONE 0.1% CREAM 80 GM TUBE TOPICAL SCH (11:57)
--- NOTE | 2019-03-21 12:07 | US ---
EXAMINATION TYPE: US renals and bladder DATE OF EXAM: 03/21/2019 COMPARISON: US CLINICAL HISTORY: RF. RENAL FAILURE EXAM MEASUREMENTS: Right Kidney: 12.2 x 5.6 x 5.4 cm Left Kidney: 11.3 x 6.3 x 5.1 cm Severe soft tissue edema and morbid obesity, difficult to penetrate Right Kidney: Appeared wnl Left Kidney: No evidence of hydro, difficult to visualize Bladder: Unable to visualize due to edema and large pt body habitus No hydronephrosis or nephrolithiasis. IMPRESSION: Limited assessment of the left kidney as discussed above. No hydronephrosis or nephrolithiasis. Evalu ation for masses limited.
--- NOTE | 2019-03-21 12:09 | XR ---
EXAMINATION TYPE: XR chest 1V DATE OF EXAM: 03/21/2019 COMPARISON: 03/01/2019 HISTORY: The supra TECHNIQUE: Single frontal view of the chest is obtained. FINDINGS: Cardiomegaly with increasing right basilar consolidation and small effusion. Tiny left ple ural effusion noted and there is prominence of the interstitium. Atherosclerotic change aorta. No obv ious pneumothorax. Arthropathy shoulders. IMPRESSION: 1. Increasing consolidation and pleural effusion on the right. Correlate for CHF. Otherwise, consider pneumonia.
--- NOTE | 2019-03-21 12:29 | CONS ---
CONSULTATION REASON FOR CONSULT: Renal failure. HISTORY OF PRESENT ILLNESS: The patient is a 58-year-old male who was admitted to the hospital initially on 03/15/2019 with uncontrolled type 2 diabetes and bilateral foot ulcers with cellulitis. The patient is maintained on antibiotics. He has been seen by vascular surgery and he had debridement of the wound at the site of left big toe amputation. Patient's serum creatinine was 1.6 mg/dL on March 15. It is up to 2.67 now. He has been voiding. It is unclear how much urine he has put out. The patient's blood pressure is slightly on the lower side. He is maintained on oral Lasix. Potassium was noted to be 6.5 mEq/L today. The patient was maintained on potassium supplementation. PAST MEDICAL HISTORY: Significant for a type 2 diabetes, hypertension, hyperlipidemia, heart failure, history of gangrene, history of left big toe amputation, osteomyelitis left 5th toe, previous suicide attempt-laceration left wrist, chronic kidney disease. Previous creatinine at 1.8-1.9 at 2 1.6 mg/dL in February of 2019. PAST SURGICAL HISTORY: Left big toe amputation, tonsillectomy and adenoidectomy, left 5th toe amputation. Colonoscopy with polypectomies, left wrist laceration repair. SOCIAL HISTORY: Negative for smoking, drug abuse. The patient did use marijuana. No history of alcohol abuse. He is a former smoker. MEDICATIONS: Medications at home prior to admission include Lipitor, Lopressor, Lamictal, potassium, insulin, Zoloft, Protonix, Lasix. ALLERGIES: None. PHYSICAL EXAMINATION: On examination, patient is comfortable, awake, alert, oriented x3. He is not in any acute distress. He is sleepy but arousable. Blood pressure was 102/62, heart rate is 72 per minute. He is afebrile. Examination of the heart S1, S2. Examination of the lungs, bilateral breath sounds are heard. Abdomen is soft, nontender. Examination of lower extremities shows no significant edema. Both feet are wrapped. Skin is very dry. LAB: Show sodium 134, potassium 6.5, BUN 115, serum creatinine 2.67. ASSESSMENT: 1. Acute kidney injury, most likely acute tubular necrosis. Rule out urine retention. Check postvoid residual. Check ultrasound of the kidneys. No nephrotoxic agents on board. May continue with oral Lasix for now. Check chest x-ray. 2. Hyperkalemia associated with acute kidney injury. Use of potassium supplementation. Rule out urine retention status post Kayexalate, discontinue potassium. Repeat potassium this evening. 3. Osteomyelitis cellulitis and infected left big toe status post amputation and debridement of wound, maintained on antibiotics. 4. Chronic kidney disease NKF stage IIIB to IV, with baseline creatinine at 1.6-1.8 mg/dL secondary to diabetic nephropathy and nephrosclerosis. PLAN: Repeat chest x-ray. Check ultrasound of the kidneys. Check postvoid residual. DC potassium. Repeat potassium this evening. Thank you for this consultation. We will continue to follow the patient with you during his hospitalization. MMODL / IJN: [id number] /
[2019-03-21] MEDS: FUROSEMIDE 40 MG TAB PO SCH (14:57)
[2019-03-21] MEDS ORDERED: SODIUM CHLORIDE 0.9% 500 ML 500 ML IV ONE (14:58)
[2019-03-21 16:56] LABS: Glucose,Whole Blood 219 mg/dL (75-99)
[2019-03-21 20:13] LABS: Glucose,Whole Blood 231 mg/dL (75-99)
[2019-03-21] MEDS: ATORVASTATIN 80 MG TAB PO SCH (20:32)
[2019-03-21] MEDS: lamoTRIgine 100 MG TAB PO SCH (20:32)
--- NOTE | 2019-03-21 20:32 | PN ---
PROGRESS NOTE DATE OF SERVICE: 03/21/2019. This 58-year-old gentleman was admitted with bilateral diabetic foot ulcers, also had significant skin lesions also. Patient also had renal failure. Creatinine is elevated to 2.67 today and potassium 6.5. Patient being closely monitored and nephrology has seen the patient. Recommend patient receive Kayexalate. Blood sugar is also elevated. PAST MEDICAL HISTORY: Reviewed. REVIEW OF SYSTEMS: Cardiovascular system: S1, S2. RESPIRATORY: As mentioned earlier. GI no nausea or vomiting. : No dysuria or hematuria. CENTRAL NERVOUS SYSTEM: No numbness. No weakness. CURRENT MEDICATIONS: Reviewed and include: 1. [place] 5 mg q.6h p.r.n. 2. Xanax 0.5 t.i.d. 3. Aspirin 81 mg daily. 4. Lipitor 80 mg q.h.s. 5. Lasix 60 mg q.i.d. 6. Lasix 40 mg p.o. daily. 7. Heparin 5000 subcu b.i.d. 8. Dilaudid 0.5 mg q.6h p.r.n. 9. NovoLog scale. 10.Levemir. 11.Lamictal 100 mg p.o. q.h.s. 12.Synthroid 50 mcg. 13.Meropenem 1 g IV b.i.d. 14.Lopressor 25 mg p.o. b.i.d. 15.Narcan. 16.Protonix. 17.Zoloft. 18.Restoril 50 mg. 19.Kenalog cream. PHYSICAL EXAM: Patient alert and oriented x3. Pulse is 57, blood pressure 130/77, respiration 16, temperature 98.2. Pulse ox 100 percent on room air. HEENT: Conjunctivae normal. NECK: No jugular venous distention. CARDIOVASCULAR: S1, S2 muffled. RESPIRATORY: Breath sounds diminished in the bases. A few scattered rhonchi and crackles. ABDOMEN: Soft, nontender. No mass palpable. Legs are no edema. No swelling. CENTRAL NERVOUS SYSTEM: No focal deficits. LABS: WBC 8.2, hemoglobin 9.5, sodium 130, potassium 6.5, creatinine is 2.67, glucose 261, 219. ASSESSMENT: 1. Bilateral diabetic foot ulcer with failure of outpatient treatment. 2. Diabetes type 2 uncontrolled. 3. History of recent congestive heart failure, acute exacerbation with acute on chronic diastolic dysfunction, ejection fraction 50-55 percent, treated with IV Lasix drip. 4. Chronic kidney disease stage 3 history. 5. History of cardiorenal syndrome. 6. Generalized itching and dry skin, possibly allergy contact dermatitis of undetermined etiology. 7. History of amputation of the toes on the left foot. 8. Hypertension. 9. Diabetes type 2. 10.Hyperlipidemia. 11.History of recent suicide attempts with laceration of the left wrist. 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 13.History of insomnia. 14.History of bipolar depression. 15.History of nicotine dependence. 16.Obesity with body mass index of 37.2. 17.Pseudomonas culture obtained from the left big toe. Final ID is pending. RECOMMENDATIONS AND DISCUSSION: Recommend to continue current medications, continue with monitoring and symptomatic treatment. Otherwise, at this time, I recommend continue the antibiotics, local treatment. Continue with a small dose of steroids. Guarded prognosis because of multiple complex medical issues. Further recommendations to follow. We will monitor creatinine closely. Avoid nephrotoxic medications. Further recommendations to follow. MMODL / IJN: [id number] /
[2019-03-21] MEDS: SODIUM CHLORIDE 0.9% 1,000 ML IV SCH (20:36)
--- NOTE | 2019-03-21 21:38 | PN ---
PROGRESS NOTE DATE OF SERVICE: 03/21/2019. REASON FOR FOLLOWUP: Left big toe amputated site wound infection. INTERVAL HISTORY: The patient is currently afebrile. Patient has been breathing comfortably. Denies having any chest pain. No shortness of breath or cough. No abdominal pain or any diarrhea. PHYSICAL EXAMINATION: Blood pressure is 127/73 with a pulse of 57, temperature 98.8. He is 100% on room air. General description is a middle-aged male lying in bed in no distress. Respiratory system: Unlabored breathing. Clear to auscultation anteriorly. Heart S1, S2. Regular rate and rhythm. ABDOMEN: Soft. Left foot is currently dressed up. No obvious drainage on the dressing. LABS: Hemoglobin is 9.5, white count 8.3, BUN of 115, creatinine 2.67. DIAGNOSTIC IMPRESSION AND PLAN: Patient with left big toe amputation site wound with secondary cellulitis, culture positive for Pseudomonas Enterobacter and with gram-negative bacilli. Patient currently covered with meropenem 1 gm IV q12, dose to be adjusted to kidney function. The patient need a PICC line for outpatient antibiotic therapy, resistant pathogen. Continue supportive care. MMODL / IJN: [id number] /
[2019-03-22] MEDS: HYDROcodone/APAP 5-325MG 1 EACH TAB PO PRN ×2 (03:17→08:52)
[2019-03-22] MEDS: methylPREDNISolone SOD SUCCI 40 MG/ML 1 ML VIAL IV SCH ×3 (04:42→21:01)
[2019-03-22] MEDS: MEROPENEM 1 GM in SODIUM CHLORIDE 0.9% 100 ML IVPB SCH ×3 (04:42→21:00)
[2019-03-22] MEDS: TRIAMCINOLONE 0.1% CREAM 80 GM TUBE TOPICAL SCH ×3 (04:42→23:07)
[2019-03-22] MEDS: LEVOTHYROXINE 50 MCG TAB PO SCH (05:48)
[2019-03-22 06:55] LABS: Glucose,Whole Blood 92 mg/dL (75-99)
[2019-03-22] MEDS: INSULIN ASPART (NovoLOG) 100 UNIT/ML VIAL SQ SCH ×8 (08:34→23:07)
[2019-03-22] MEDS: INSULIN DETEMIR (LEVEMIR) 100 UNIT/ML SYR SQ SCH (08:48)
[2019-03-22] MEDS: PANTOPRAZOLE 40 MG TABLET PO SCH (08:51)
[2019-03-22] MEDS: SERTRALINE 100 MG TAB PO SCH (08:51)
[2019-03-22] MEDS: ASPIRIN 81 MG PO SCH (08:51)
[2019-03-22] MEDS: METOPROLOL TARTRATE 25 MG TAB PO SCH ×2 (08:52→21:01)
[2019-03-22] MEDS: HEPARIN SODIUM,PORCINE 5,000 UNIT/ML 1 ML VIAL SQ SCH ×2 (08:52→21:01)
[2019-03-22] MEDS: FUROSEMIDE 20 MG TAB PO SCH (08:55)
[2019-03-22 10:36] LABS: Hemoglobin A1C 8.2 % (4.0-6.0)
[2019-03-22 11:01] VITALS: BMI 37.4
[2019-03-22 11:18] LABS: Glucose,Whole Blood 160 mg/dL (75-99)
[2019-03-22 11:44] LABS: Calcium 8.6 mg/dL (8.4-10.2); Potassium 4.7 mmol/L (3.5-5.1)
--- NOTE | 2019-03-22 14:05 | PN ---
PROGRESS NOTE The patient is seen for followup for acute kidney injury and hyperkalemia. The patient has been voiding. His serum creatinine is the same as yesterday. Potassium, however, has improved from 6.5 to 4.7 today. The patient states he feels depressed. He has been voiding and ultrasound done yesterday did not reveal any hydronephrosis. Blood pressure has been on the lower side. However, it is at 119 mmHg systolic today. PHYSICAL EXAMINATION: On examination today, blood pressure 119/78, heart rate 67 per minute. He is afebrile. EXAMINATION OF THE HEART: S1, S2. EXAMINATION OF THE LUNGS: Bilateral breath sounds are heard. Abdomen is soft, nontender. Significant scaling of the skin noted all over. Examination of the lower extremities shows both feet to be currently wrapped. LABS: Labs show Sodium 136, potassium 4.7, chloride 95, BUN 122, serum creatinine 2.67. ASSESSMENT: 1. Acute kidney injury, acute tubular necrosis, nonoliguric. No evidence of obstructive uropathy. Etiology likely ischemic from hypoperfusion. No evidence of urine retention. 2. Hyperkalemia associated with acute kidney injury and potassium supplementation, currently improved. 3. Osteomyelitis/cellulitis with history of left big toe amputation, status post debridement of the wound and maintained on antibiotics. 4. Chronic kidney disease stage 3B to 4, with baseline creatinine 1.6 to 1.8 mg/dL secondary to diabetic nephropathy and nephrosclerosis. PLAN: Decrease Lasix. Repeat labs in a.m. and avoid high potassium containing foods. May continue with antibiotics. BUN is disproportionately elevated secondary to steroids. MMODL / IJN: [id number] /
[2019-03-22] MEDS: FUROSEMIDE 40 MG TAB PO SCH (14:31)
[2019-03-22 17:06] LABS: Glucose,Whole Blood 133 mg/dL (75-99)
[2019-03-22] MEDS: SODIUM CHLORIDE 0.9% 1,000 ML IV SCH (17:48)
--- NOTE | 2019-03-22 19:45 | PN ---
PROGRESS NOTE DATE OF SERVICE: 03/22/2019 REASON FOR FOLLOWUP: Left big toe amputation site wound infection, gram-negative. INTERVAL HISTORY: The patient is currently afebrile. The patient seems to be upset because of his . Denies having any chest pain, shortness of breath or cough. No abdominal pain. No pain to the left big toe area. PHYSICAL EXAMINATION: Blood pressure 109/71 with a pulse of 69, temperature 97.4. He is 98% on room air. General description is a middle-aged male up in the chair in no distress. RESPIRATORY SYSTEM: Unlabored breathing. Clear to auscultation anteriorly. HEART: S1, S2. Regular rate and rhythm. ABDOMEN: Soft. No tenderness. Left big toe is currently dressed up. No obvious drainage on the dressing. LABS: BUN of 122, creatinine 2.67. DIAGNOSTIC IMPRESSION AND PLAN: Patient with left big toe diabetic foot infection. Culture positive for pseudomonas, enterobacter, anaerobic gram-negative. Patient is currently covered with Meropenem 1 gram. Dose has been adjusted for the kidney function; to continue. He will get a PICC line to continue these antibiotics in the outpatient setting for about 4 weeks with close outpatient followup. MMODL / IJN: [id number] /
[2019-03-22] MEDS: lamoTRIgine 100 MG TAB PO SCH (21:01)
[2019-03-22] MEDS: ATORVASTATIN 80 MG TAB PO SCH (21:01)
[2019-03-22 21:33] LABS: Glucose,Whole Blood 140 mg/dL (75-99)
--- NOTE | 2019-03-22 22:15 | PN ---
PROGRESS NOTE DATE OF SERVICE: 03/22/2019 This 58-year-old gentleman who was admitted with bilateral diabetic foot ulcer with failure of outpatient treatment, is being closely monitored. No chest pain. No palpitations. No fever. The patient also has significant depression also. Multiple consultants are following the patient closely including Nephrology. Creatinine is 2.67 at this time. EXAM: Alert and oriented x2. Pulse is 69, blood pressure 109/71, respiration 17, temperature 97.4, pulse ox 98% on room air. HEENT: Conjunctivae normal. NECK: No JVD. CARDIOVASCULAR: S1, S2 muffled. RESPIRATIONS: Breath sounds diminished in the bases. Scattered rhonchi and crackles. ABDOMEN is soft, nontender. LEGS: Bilateral leg edema and swelling. CENTRAL NERVOUS SYSTEM: No focal deficits. LAB STUDIES: Sodium 136. Other labs are noted. ASSESSMENT: 1. Bilateral diabetic foot ulcer with failure of outpatient treatment and debridement of the wound by Dr. Irby. 2. Diabetes type 2, uncontrolled. 3. History of recent congestive heart failure acute exacerbation, acute on chronic diastolic dysfunction, ejection fraction 50-55 percent, treated with IV Lasix drip. 4. Chronic kidney stage 3 history. 5. History of cardiorenal syndrome. 6. Generalized itching and dry skin, possible allergy contact dermatitis of undetermined etiology. 7. History of amputation of the toes of the left foot. 8. Hypertension. 9. Diabetes type 2. 10.Hyperlipidemia. 11.History of recent suicide attempts with laceration of the left wrist. 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 13.History of insomnia. 14.History of bipolar depression. 15.History of nicotine dependence. 16.Obesity with body mass index of 37.2. 17.Pseudomonas culture obtained from the left big toe. Final ID is pending. RECOMMENDATIONS AND DISCUSSION: I recommend to continue current management and symptomatic treatment. Otherwise, PICC line once cleared by the Nephrology. Outpatient antibiotics. Prognosis guarded because of multiple complex medical issues. Otherwise the patient is also awaiting outpatient Dermatology consultation for the skin lesions. Other than that, continue the empiric steroids. Continue the rest of medications. Guarded prognosis. Further recommendations to follow. Please note the patient has significant hyperglycemia secondary to steroids previously. MMODL / IJN: [id number] /
[2019-03-23] MEDS: LEVOTHYROXINE 50 MCG TAB PO SCH (05:41)
[2019-03-23 07:30] LABS: Glucose,Whole Blood 79 mg/dL (75-99)
[2019-03-23] MEDS: INSULIN ASPART (NovoLOG) 100 UNIT/ML VIAL SQ SCH ×7 (07:48→20:33)
[2019-03-23] MEDS: INSULIN DETEMIR (LEVEMIR) 100 UNIT/ML SYR SQ SCH (07:49)
[2019-03-23] MEDS: HEPARIN SODIUM,PORCINE 5,000 UNIT/ML 1 ML VIAL SQ SCH ×2 (07:49→19:08)
[2019-03-23] MEDS: ASPIRIN 81 MG PO SCH (07:49)
[2019-03-23] MEDS: SERTRALINE 100 MG TAB PO SCH (07:49)
[2019-03-23] MEDS: METOPROLOL TARTRATE 25 MG TAB PO SCH ×2 (07:49→19:08)
[2019-03-23] MEDS: PANTOPRAZOLE 40 MG TABLET PO SCH (07:49)
[2019-03-23] MEDS: methylPREDNISolone SOD SUCCI 40 MG/ML 1 ML VIAL IV SCH ×2 (07:50→19:08)
[2019-03-23] MEDS: MEROPENEM 1 GM in SODIUM CHLORIDE 0.9% 100 ML IVPB SCH ×2 (07:50→19:07)
[2019-03-23] MEDS: TRIAMCINOLONE 0.1% CREAM 80 GM TUBE TOPICAL SCH ×2 (07:52→19:08)
[2019-03-23] MEDS: ALPRAZolam 0.25 MG TAB PO PRN ×2 (13:20→21:31)
[2019-03-23 13:21] LABS: Calcium 8.5 mg/dL (8.4-10.2); Potassium 4.2 mmol/L (3.5-5.1)
[2019-03-23 13:23] LABS: Glucose,Whole Blood 164 mg/dL (75-99)
[2019-03-23] MEDS ORDERED: LIDOCAINE 1% INJ 10MG/ML (20 ML MDV) SQ ONE (13:51)
[2019-03-23] MEDS: FUROSEMIDE 40 MG TAB PO SCH (14:52)
[2019-03-23] MEDS: HYDROcodone/APAP 5-325MG 1 EACH TAB PO PRN ×2 (15:40→21:31)
--- NOTE | 2019-03-23 15:48 | IR ---
PICC LINE PLACEMENT: HISTORY: Infection requiring long-term antibiotic therapy PROCEDURE: Ultrasound and fluoroscopic guidance of PICC line placement. COMPLICATIONS: None ANESTHESIA: 1. 1% Lidocaine locally. FINDINGS/TECHNIQUE: The procedure was explained to the patient. The risks, complications, benefits and alternatives were discussed and any questions were answered. Informed consent was obtained. The patient was placed supine on the fluoroscopic table and prepped and draped in the usual sterile fash ion. Utilizing a 21 gauge needle and sonographic and fluoroscopic guidance, access in the left ceph alic vein was achieved and there is placement of a 0.018 guidewire. The vein is patent. A 4-F sheat h was placed over the guidewire. The guidewire and dilator were removed and a 4-F. PICC line was craig dasia through the sheath with the tip at the level of the SVC. The sheath was removed, the catheter wa s flushed and sutured into position. The patient was stable throughout the procedure and remained st able upon discharge from the Department of Radiology. The vein puncture was patent under ultrasound. A villegas scale image was obtained to document patency of the vein punctured. All elements of the maximal barrier technique were utilized. FLUOROSCOPY TIME: 0.1 minutes and 1 image submitted IMPRESSION: Successful PICC line placement under ultrasound and fluoroscopic guidance.
[2019-03-23 17:16] LABS: Glucose,Whole Blood 158 mg/dL (75-99)
--- NOTE | 2019-03-23 17:37 | PN ---
PROGRESS NOTE Patient is seen for followup for acute kidney injury. I decreased his diuretics. Renal function is slightly better. The patient wants to be discharged. He states he has been voiding. There was no evidence of urine retention or obstructive uropathy or hydronephrosis noted on the ultrasound. Patient does have CKD with baseline creatinine about 1.6 to 1.8 mg/dL. On examination this morning, blood pressure was 123/76, heart rate 75 per minute. He is afebrile. EXAMINATION OF THE HEART: S1 and S2. EXAMINATION OF LUNGS: Bilateral breath sounds are heard. ABDOMEN: Soft, non-tender, morbidly obese. Examination of lower extremities shows both feet to be wrapped. Chronic skin changes. Chronic edema is noted. Significant scaling of the skin noted all over. Labs show sodium 137, potassium 4.2, BUN 120, serum creatinine 2.39. ASSESSMENT: 1. Acute kidney injury, mostly acute tubular necrosis, currently improving. Continue with current dose of diuretics. I would avoid any IV fluid administration at this time. No evidence of obstructive uropathy. There was documented hypotension and hypoperfusion which caused the acute kidney injury from ischemic ATN. 2. Hyperkalemia associated with acute kidney injury and potassium supplementation, currently improved. 3. Osteomyelitis/cellulitis of the foot, status post recent left big toe amputation, status post debridement of the wound. 4. Morbid obesity. 5. History of depression and suicide attempt, status post repair of laceration on the left wrist. PLAN: Continue with current dose of Lasix. Avoid [id number] foods. Continue antibiotics as per ID. Avoid hypotension. Patient will need labs to be done as outpatient in about 4-5 days' time. The BUN is disproportionately elevated secondary to steroids. MMODL / IJN: [id number] /
[2019-03-23] MEDS: SODIUM CHLORIDE 0.9% 1,000 ML IV SCH (17:45)
--- NOTE | 2019-03-23 18:49 | PN ---
PROGRESS NOTE DATE OF SERVICE: 03/23/2019. REASON FOR FOLLOWUP: Left big toe amputation site wound infection, gram-negative. INTERVAL HISTORY: The patient is currently afebrile. The patient has been breathing comfortably. The patient denies having any chest pain, shortness of breath or cough. No abdominal pain or any worsening pain in the left foot area. PHYSICAL EXAMINATION: Blood pressure 125/66, pulse of 66, temperature 98.6. He is 94% on room air. General description is a middle-aged male lying in bed in no distress. RESPIRATORY SYSTEM: Unlabored breathing. Clear to auscultation anteriorly. HEART: S1, S2. Regular rate and rhythm. ABDOMEN: Soft. No tenderness. Left foot is currently dressed up. No obvious drainage on the dressing. LABS: BUN of 120, creatinine 4.39. DIAGNOSTIC IMPRESSION AND PLAN: The patient with left big toe amputation site infection. Culture positive for pseudomonas and a gram-negative. The patient is currently covered with IV meropenem. He did a get a PICC line, waiting for the bilirubin before discharge. Continue supportive care. MMODL / IJN: [id number] /
[2019-03-23] MEDS: ATORVASTATIN 80 MG TAB PO SCH (19:08)
[2019-03-23] MEDS: lamoTRIgine 100 MG TAB PO SCH (19:08)
[2019-03-23 20:32] LABS: Glucose,Whole Blood 155 mg/dL (75-99)
--- NOTE | 2019-03-23 23:48 | P.PN ---
Subjective Progress Note Date: 03/23/19 Principal diagnosis: Diabetic bilateral foot ulcer left greater than right This is a 58-year-old male who was admitted with bilateral diabetic foot ulcers, also uncontrolled diabetes. Dr. Irby is following after debridement of the left foot. Patient is continuing to have fluctuating blood sugars that have been dropping down low each a.m. and then while awake has elevated blood sugars. Hypoglycemia and hyperglycemia protocols are being followed. Infectious disease is following the patient closely. Patient denies any chest pain or shortness of breath and has been afebrile. Nephrology is following due to acute on chronic kidney disease. 03/23/2019 Patient denied any complaints of chest pain or worsening shortness of breath. Bilateral foot pain is controlled. Continued on wound care. Cultures are growing Pseudomonas. Patient is being continued on meropenem. Midline will be exchanged with PICC line was cleared by nephrology.. Patient will need another 4 weeks of IV antibiotics. Patient is willing to go to rehab. Neck and 2.39 today. Nephrology is on board. Patient does have dry and scaly skin for which dermatology was consulted but recommended to follow-up as an outpatient. No complaints of fever or chills. No nausea vomiting or abdominal pain. No diarrhea. No constipation. Patient does have generalized weakness. Would recommend PTOT. All other review of systems negative except above. Discussed with the family at bedside in detail. Current medications Active Medications Generic Name Dose Route Start Last Admin Trade Name Freq PRN Reason Stop Dose Admin Hydrocodone Bitart/Acetaminophen 1 each 03/15/19 18:04 03/23/19 21:31 [place] 5-325 PO 1 each Q6HR PRN Administration Pain Alprazolam 0.25 mg 03/15/19 18:04 03/23/19 21:31 Xanax PO 0.25 mg TID PRN Administration Anxiety Aspirin 81 mg 03/16/19 16:00 03/23/19 07:49 Aspirin PO 81 mg DAILY HELEN Administration Atorvastatin Calcium 80 mg 03/16/19 21:00 03/23/19 19:08 Lipitor PO 80 mg HS HELEN Administration Furosemide 40 mg 03/17/19 15:00 03/23/19 14:52 Lasix PO 40 mg DAILY@1500 HELEN Administration Heparin Sodium (Porcine) 5,000 unit 03/15/19 21:00 03/23/19 19:08 Heparin SQ 5,000 unit Q12HR HELEN Administration Hydromorphone HCl 0.5 mg 03/15/19 18:04 Dilaudid IVP Q6HR PRN Severe Pain Sodium Chloride 1,000 mls @ 20 mls/hr 03/15/19 18:15 03/23/19 17:45 Saline 0.9% IV Not Given .Q24H HELEN Meropenem 1 gm/ Sodium 100 mls @ 200 mls/hr 03/20/19 21:00 03/23/19 19:07 Chloride IVPB 200 mls/hr Q12HR HELEN Administration Protocol Insulin Aspart 5 unit 03/16/19 17:30 03/23/19 17:43 Novolog SQ 5 unit AC-SUPPER HELEN Administration Insulin Aspart 0 unit 03/17/19 07:30 03/23/19 20:33 Novolog SQ 2 unit ACHS HELEN Administration Protocol Insulin Detemir 35 unit 03/17/19 09:00 03/23/19 07:49 Levemir SQ 35 unit DAILY HELEN Administration Lamotrigine 100 mg 03/16/19 21:00 03/23/19 19:08 Lamictal PO 100 mg HS HELEN Administration Levothyroxine Sodium 50 mcg 03/17/19 06:30 03/23/19 05:41 Synthroid PO 50 mcg DAILY@0630 HELEN Administration Methylprednisolone Sodium Succinate 20 mg 03/20/19 21:00 03/23/19 19:08 Solu-Medrol IV 20 mg Q12HR HELEN Administration Metoprolol Tartrate 25 mg 03/16/19 21:00 03/23/19 19:08 Lopressor PO 25 mg BID HELEN Administration Naloxone HCl 0.2 mg 03/15/19 18:03 Narcan IV Q2M PRN Opioid Reversal Pantoprazole Sodium 40 mg 03/16/19 07:30 03/23/19 07:49 Protonix PO 40 mg AC-BRKFST HELEN Administration Sertraline HCl 100 mg 03/20/19 09:00 03/23/19 07:49 Zoloft PO 100 mg DAILY HELEN Administration Temazepam 15 mg 03/15/19 18:04 Restoril PO HS PRN Insomnia Triamcinolone Acetonide 1 applic 03/16/19 21:00 03/23/19 19:08 Kenalog TOPICAL 1 applic BID HELEN Administration Objective - Vital Signs Vital signs: Vital Signs Temp 97.5 F L 03/22/19 21:24 Pulse 75 03/23/19 06:41 Resp 16 03/23/19 06:41 BP 123/76 03/23/19 06:41 Pulse Ox 95 03/23/19 06:41 Intake & Output 03/22/19 03/23/19 03/23/19 18:59 06:59 18:59 Intake Total 622 240 Output Total 625 750 Balance -3 -510 Weight 118.3 kg 117.8 kg Intake: Oral 622 240 Output: Urine 625 750 Other: Voiding Method Toilet # Voids 2 # Bowel Movements 1 - Exam Physical exam: On exam patient is alert and oriented 3 vital signs are stable. HEENT: Conjunctivae normal, EOM intact Neck: No jugular venous distention, neck is supple Cardiovascular: S1, S2 muffled Respiratory: Manage lung sounds at the bases, some mild expiratory wheezing noted, few crackles scattered bilaterally. Abdomen: Soft, non-tender, protuberant Legs: Bilateral legs display edema, dressings were changed yesterday, dry, intact Nervous system: No focal deficits Skin: Dry, flaky - Labs CBC & Chem 7: 03/21/19 05:44 03/23/19 12:36 Labs: Abnormal Lab Results - Last 24 Hours (Table) 03/22/19 03/22/19 03/23/19 Range/Units 17:04 21:20 12:36 Chloride 96 L (98-107) mmol/L BUN 120 H* (9-20) mg/dL Creatinine 2.39 H (0.66-1.25) mg/dL Glucose 132 H (74-99) mg/dL POC Glucose (mg/dL) 133 H 140 H (75-99) mg/dL 03/23/19 Range/Units 13:16 Chloride (98-107) mmol/L BUN (9-20) mg/dL Creatinine (0.66-1.25) mg/dL Glucose (74-99) mg/dL POC Glucose (mg/dL) 164 H (75-99) mg/dL Assessment and Plan Assessment: 1. Bilateral diabetic foot ulcers and failure of outpatient treatment 2. Diabetes type 2, uncontrolled 3. History of recent congestive heart failure with acute exacerbation, acute on chronic diastolic dysfunction, ejection fraction is 50-55%. Treated with Lasix drip 4. Acute on Chronic kidney disease stage III history 5. History of cardiorenal syndrome 6. Generalized itching and dry skin with scaling, possibly due to ALLERGY of undetermined and etiology 7. History of amputation of the toes of the left foot 8. Hypertension 9. History of diabetes type 2 10. Hyperlipidemia 11. 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 History of insomnia 14. History of bipolar depression 15. History of nicotine dependence 16. Obesity with body mass index of 37.2 17. Pseudomonas on cultures obtained from left great toe final results still pending on the species Recommendations and discussion: Recommend continue current medications, IV antibiotics, and symptomatic treatment. Closely following with infectious disease and Dr. Irby. We'll continue to monitor renal function closely and recheck morning labs. Guarded prognosis because of multiple complex medical issues. Further recommendations to follow. Time with Patient: Greater than 30
[2019-03-24] MEDS: LEVOTHYROXINE 50 MCG TAB PO SCH (05:03)
[2019-03-24] MEDS: ALPRAZolam 0.25 MG TAB PO PRN ×2 (05:39→13:22)
[2019-03-24] MEDS: HYDROcodone/APAP 5-325MG 1 EACH TAB PO PRN ×2 (05:40→13:23)
[2019-03-24 06:59] LABS: Glucose,Whole Blood 164 mg/dL (75-99)
[2019-03-24] MEDS: PANTOPRAZOLE 40 MG TABLET PO SCH (08:05)
[2019-03-24] MEDS: HEPARIN SODIUM,PORCINE 5,000 UNIT/ML 1 ML VIAL SQ SCH (08:05)
[2019-03-24] MEDS: MEROPENEM 1 GM in SODIUM CHLORIDE 0.9% 100 ML IVPB SCH (08:05)
[2019-03-24] MEDS: METOPROLOL TARTRATE 25 MG TAB PO SCH (08:05)
[2019-03-24] MEDS: SERTRALINE 100 MG TAB PO SCH (08:05)
[2019-03-24] MEDS: INSULIN DETEMIR (LEVEMIR) 100 UNIT/ML SYR SQ SCH (08:05)
[2019-03-24] MEDS: ASPIRIN 81 MG PO SCH (08:05)
[2019-03-24] MEDS: INSULIN ASPART (NovoLOG) 100 UNIT/ML VIAL SQ SCH ×2 (08:06→13:26)
[2019-03-24] MEDS: methylPREDNISolone SOD SUCCI 40 MG/ML 1 ML VIAL IV SCH (08:06)
[2019-03-24] MEDS: TRIAMCINOLONE 0.1% CREAM 80 GM TUBE TOPICAL SCH (11:14)
[2019-03-24 11:52] LABS: Glucose,Whole Blood 259 mg/dL (75-99)
[2019-03-24] MEDS ORDERED: LIDOCAINE 1% INJ 10MG/ML (20 ML MDV) ONE (13:31)
--- NOTE | 2019-03-24 14:42 | P.DS ---
Providers Date of admission: 03/15/19 17:06 Expected date of discharge: 03/24/19 Attending physician: Malissa Corbett Consults: 03/15/19 18:44 Consult Physician Routine Consulting Provider: Sandoval Irby Consult Reason/Comments: known in wound center, gangrene left toe Do you want consulting provider notified?: Yes 03/16/19 12:47 Consult Physician Routine Consulting Provider: Naren Courtney Consult Reason/Comments: infected great toe Do you want consulting provider notified?: Yes 03/18/19 15:02 Consult Physician Routine Consulting Provider: Tarah Newsome Consult Reason/Comments: suicide attempt previously. depression. Do you want consulting provider notified?: Yes 03/20/19 12:14 Consult Physician Routine Consulting Provider: Evie Bass Consult Reason/Comments: BUN and Creatinine elevation Do you want consulting provider notified?: Yes Primary care physician: [facility] Course: Final diagnosis Bilateral diabetic foot ulcers Diabetes, uncontrolled History of recent congestive heart failure with acute exacerbation, acute on chronic diastolic dysfunction, ejection fraction is 50-55%. Treated with Lasix drip in the past Acute on chronic kidney disease stage III history History of cardiorenal syndrome Generalized itching and dry skin with scaling, possibly due to an ALLERGY of undetermined etiology History of amputation of the toes of the left foot Hypertension History of diabetes type 2 hyperlipidemia History of recent suicide attempts with lacerations to left wrist History of Fowler's palsy History of insomnia history of bipolar depression History of independence Obesity with body mass index of 37.2 Pseudomonas on cultures of left great toe Discharge disposition Patient is being discharged in a stable condition with guarded prognosis to the [facility] for continuing IV antibiotic therapy medical management. Total time taken is 35 minutes. IV antibiotics has been arranged per infectious disease recommendations. History of present illness This is a 58-year-old male with a past medical history of multiple medical problems that's currently being followed by Dr. Irby for wound care management of his bilateral diabetic foot ulcers with left foot debridement and continued IV antibiotics. patient is currently stable with minimal improvement. Patient was being followed closely and monitoring blood sugars and lab values. Patient denies any shortness of breath, chest pain, or palpitations at this time. Patient was receiving a midline IV for antibiotics for the next 4 weeks. On exam vital signs are stable. Cardio S1 and S2 normal. Respiratory system is clear to auscultation no wheezing or rhonchi noted. Abdomen is soft and non- tender and obese. Nervous system showing no new focal deficits at this time. Please refer to the medication reconciliation sheet for list of medications Plan - Discharge Summary Discharge Rx Participant: No New Discharge Prescriptions: New Meropenem [Merrem] 1 gm IVPB Q12H #56 vial Meropenem [Merrem] 1 gm IVPB Q12HR vial INSULIN ASPART (NovoLOG) [NovoLOG (formulary)] 0 unit SQ ACHS vial ALPRAZolam [Xanax] 0.25 mg PO TID PRN tab PRN Reason: Anxiety Temazepam [Restoril] 15 mg PO HS PRN 3 Days #3 cap PRN Reason: Insomnia ALPRAZolam [Xanax] 0.25 mg PO TID PRN 3 Days #9 tab PRN Reason: Anxiety Continue Metoprolol Tartrate [Lopressor] 25 mg PO BID 30 Days #60 tab Atorvastatin [Lipitor] 80 mg PO HS 30 Days #30 tab lamoTRIgine [LaMICtal] 100 mg PO HS Insulin Glargine,Hum.rec.anlog [Lantus Solostar] 35 unit SQ DAILY Aspirin 81 mg PO DAILY #30 chew Potassium Chloride ER [K-Dur 20] 20 meq PO BID #60 tab.er.prt Insulin Aspart [NovoLOG Flexpen] 5 units SQ AC-SUPPER Sertraline [Zoloft] 50 mg PO DAILY Pantoprazole [Protonix] 40 mg PO AC-BRKFST #30 tablet. Levothyroxine Sodium [Synthroid] 50 mcg PO DAILY Furosemide [Lasix] 40 mg PO DAILY@1500 Furosemide [Lasix] 60 mg PO QAM Triamcinolone 0.1% Cream [Kenalog 0.1% Cream] 1 applic TOPICAL BID Discharge Medication List Atorvastatin [Lipitor] 80 mg PO HS 30 Days #30 tab 01/19/19 [Rx] Metoprolol Tartrate [Lopressor] 25 mg PO BID 30 Days #60 tab 01/19/19 [Rx] lamoTRIgine [LaMICtal] 100 mg PO HS 01/20/19 [History] Insulin Glargine,Hum.rec.anlog [Lantus Solostar] 35 unit SQ DAILY 01/29/19 [History] Aspirin 81 mg PO DAILY #30 chew 02/11/19 [Rx] Potassium Chloride ER [K-Dur 20] 20 meq PO BID #60 tab.er.prt 02/11/19 [Rx] Insulin Aspart [NovoLOG Flexpen] 5 units SQ AC-SUPPER 03/01/19 [History] Sertraline [Zoloft] 50 mg PO DAILY 03/01/19 [History] Pantoprazole [Protonix] 40 mg PO AC-BRKFST #30 tablet.dr 03/08/19 [Rx] Furosemide [Lasix] 40 mg PO DAILY@1500 03/15/19 [History] Furosemide [Lasix] 60 mg PO QAM 03/15/19 [History] Levothyroxine Sodium [Synthroid] 50 mcg PO DAILY 03/15/19 [History] Triamcinolone 0.1% Cream [Kenalog 0.1% Cream] 1 applic TOPICAL BID 03/15/19 [History] Meropenem [Merrem] 1 gm IVPB Q12H #56 vial 03/22/19 [Rx] ALPRAZolam [Xanax] 0.25 mg PO TID PRN tab 03/24/19 [Rx] ALPRAZolam [Xanax] 0.25 mg PO TID PRN 3 Days #9 tab 03/24/19 [Rx] INSULIN ASPART (NovoLOG) [NovoLOG (formulary)] 0 unit SQ ACHS vial 03/24/19 [Rx] Meropenem [Merrem] 1 gm IVPB Q12HR vial 03/24/19 [Rx] Temazepam [Restoril] 15 mg PO HS PRN 3 Days #3 cap 03/24/19 [Rx] Follow up Appointment(s)/Referral(s): [facility] [NON-STAFF] - [facility], [NON-STAFF] - As Needed Sandoval Irby MD [STAFF PHYSICIAN] - 03/31/19 1:15 pm Naren Courtney MD [STAFF PHYSICIAN] - 1 Week Kristi Amador [NON-STAFF] - (To deliver boot to [facility]) Activity/Diet/Wound Care/Special Instructions: Activity limited advance as tolerated continue heart healthy/ diabetic diet Continue IV antibiotics as directed Follow up with Dr. Garrett on 03/31/19. Aquacel silver rope to left foot great toe amputation, dry gauze, kerlix. Every 48 hours. Discharge Disposition: TRANSFER TO SNF/ECF
[2019-03-24 14:58] VITALS: BP 119/76; PULSE 69; RESP 16; TEMP 97.3
--- NOTE | 2019-03-24 17:23 | PN ---
PROGRESS NOTE DATE OF SERVICE: 03/24/2019. REASON FOR FOLLOWUP: Left diabetic foot infection gram-negative. INTERVAL HISTORY: The patient is currently afebrile. The patient accidentally pulled out his PICC line yesterday. Currently waiting for reinsertion of the PICC line before discharge to the long term. Denies having any chest pain. No shortness of breath. No cough. No abdominal pain or any worsening pain to the left foot area. PHYSICAL EXAMINATION: Blood pressure 144/81 with a pulse of 67. Temperature is 97.1. He is 93% on room air. General description is a middle aged male up in the bed in no distress. Respiratory system: Unlabored breathing, clear to auscultation anteriorly. Heart S1, S2. Regular rate and rhythm. Abdomen soft, no tenderness. Left foot currently dressed up. No obvious drainage on the dressing. LABS: No new labs have been obtained today. DIAGNOSTIC IMPRESSION AND PLAN: Patient with left big toe amputated site wound infection, underlying diabetes mellitus. The patient's culture positive for Pseudomonas aeruginosa, Enterobacter which is multidrug resistant. The patient anaerobic gram-negative bacilli. The patient is currently covered with meropenem 1 g q.12h to continue. Dose has been kidney function for at least 4 weeks. Local wound care to continue per surgeon and close outpatient followup. MMODL / IJN: [id number] /
--- NOTE | 2019-03-25 11:02 | IR ---
PICC LINE PLACEMENT: HISTORY: Infection requiring long-term antibiotic therapy. Previous PICC line was accidentally remov ed by patient PROCEDURE: Ultrasound and fluoroscopic guidance of PICC line placement. COMPLICATIONS: None ANESTHESIA: 1. 1% Lidocaine locally. FINDINGS/TECHNIQUE: The procedure was explained to the patient. The risks, complications, benefits and alternatives were discussed and any questions were answered. Informed consent was obtained. The patient was placed supine on the fluoroscopic table and prepped and draped in the usual sterile fash ion. Utilizing a 21 gauge needle and sonographic and fluoroscopic guidance, access in the left ceph alic vein was achieved and there is placement of a 0.018 guidewire. The vein is patent. A 4-F sheat h was placed over the guidewire. The guidewire and dilator were removed and a 4-F. PICC line was craig dasia through the sheath with the tip at the level of the SVC. The sheath was removed, the catheter wa s flushed and sutured into position. The patient was stable throughout the procedure and remained st able upon discharge from the Department of Radiology. The vein puncture was patent under ultrasound. A villegas scale image was obtained to document patency of the vein punctured. All elements of the maximal barrier technique were utilized. FLUOROSCOPY TIME: 0.2 minutes and one image submitted IMPRESSION: Successful PICC line placement under ultrasound and fluoroscopic guidance.
--- NOTE | 2019-03-25 13:25 | PN ---
PROGRESS NOTE DATE OF SERVICE: 03/24/2019 The patient is seen for followup for acute kidney injury. He has been depressed and is asking to be discharged. Renal function had improved slightly yesterday. The patient continues to have good urine output and I do not have any labs from today. PHYSICAL EXAMINATION: On examination this morning, patient is lying in bed, comfortable. Blood pressure was 144/81, heart rate 67 per minute. He is afebrile. EXAMINATION OF THE HEART: S1 and S2. EXAMINATION OF THE LUNGS: Decreased breath sounds at the bases. Abdomen is morbidly obese. Examination of the lower extremities shows chronic skin changes with significant scaling of the skin noted. Bilateral feet are wrapped. LABS: Labs are not available from today. ASSESSMENT: 1. Acute kidney injury, acute tubular necrosis, somewhat improving. Lasix was decreased. The patient can continue with oral diuretics at the current dose upon discharge. No evidence of obstructive uropathy. Another reason for the acute kidney injury with hypotension hypoperfusion and ischemic acute tubular necrosis. 2. Hyperkalemia associated with acute kidney injury, potassium supplementation, currently improved. 3. Osteomyelitis/cellulitis of the right foot, status post recent left big toe amputation, status post debridement of the wound. 4. History of depression. 5. Morbid obesity. PLAN: Continue loop diuretics upon discharge. Repeat labs as outpatient. MMODL / IJN: [id number] /
== END 2019-03-24 15:22 | DRG 623 ==
LOC: WNDWHC3 09:15 → 4MS4W 17:06 → 4SSUR 03-18 16:53 → 4MS4W 03-22 15:57
PROVIDERS: ADMIT Hospitalist; ATTEND Hospitalist
PROC: 0JBR0ZZ Excision of Left Foot Subcutaneous Tissue and Fascia, Open Approach (ICD-10-PCS; principal; 2019-03-16 12:15)
DX: E11.621 Type 2 diabetes mellitus with foot ulcer (principal); E11.52 Type 2 diabetes mellitus with diabetic peripheral angiopathy with gangrene; I50.32 Chronic diastolic (congestive) heart failure; I13.0 Hypertensive heart and chronic kidney disease with heart failure and stage 1 through stage 4 chronic kidney disease, or unspecified chronic kidney disease; F31.30 Bipolar disorder, current episode depressed, mild or moderate severity, unspecified; T87.44 Infection of amputation stump, left lower extremity; L03.116 Cellulitis of left lower limb; L97.521 Non-pressure chronic ulcer of other part of left foot limited to breakdown of skin; L97.511 Non-pressure chronic ulcer of other part of right foot limited to breakdown of skin; L98.491 Non-pressure chronic ulcer of skin of other sites limited to breakdown of skin; Z87.891 Personal history of nicotine dependence; Z79.4 Long term (current) use of insulin; E11.65 Type 2 diabetes mellitus with hyperglycemia; N18.3 Chronic kidney disease, stage 3 (moderate); E11.22 Type 2 diabetes mellitus with diabetic chronic kidney disease; Z89.422 Acquired absence of other left toe(s); Z79.899 Other long term (current) drug therapy; E11.21 Type 2 diabetes mellitus with diabetic nephropathy
CPT/HCPCS: 11042; 36410; 36573; 71045; 76770; 76937; 80048; 80053; 81001; 83036; 83735; 84132; 85025; 87070; 87075; 87077; 87102; 87186; 87205; 97597; 99213; 99214

== ENCOUNTER 2019-10-06 07:11 | Emergency (ER) | payer OTHER ==
[2019-10-06] MEDS ORDERED: DIPH,PERTUS(ACELL)TETVAC-LF 0.5 ML VIAL IM ONE (07:26)
[2019-10-06] MEDS ORDERED: LIDOCAINE 1% INJ 10MG/ML (20 ML MDV) SQ ONE (07:27)
--- NOTE | 2019-10-06 07:30 | ED ---
General Adult HPI - General Stated complaint: fall - History of Present Illness Initial comments: Dictation was produced using [employer] dictation software. please excuse any gra mmatical, word or spelling errors. Chief Complaint: 59-year-old male presents after fall. History of Present Illness: She is 59-year-old not he has history of frequent falls, heart failure and diabetes. He was admitted large long-term where he fell. Patient states he rolled out of bed to seek out to close to the edge. States he struck his head on the corner of a nightstand. Struck his left face. Denies any loss of consciousness. Fall was unwitnessed. Patient was brought he re by EMS. Patient currently at long-term because he is recovering from pacemaker placement. He has no complaints at this time. Discussed plan of some mild facial pain. Denies any headache. No vision changes. No eye watering no eye pain. The ROS documented in this emergency department record has been reviewed and confirmed by me. Those systems with pertinent positive or negative responses have been documented in the HPI. All other systems are other negative and/or noncontributory. PHYSICAL EXAM: General Impression: Alert and oriented x3, not in acute distress HEENT: 1 cm laceration to the left lower eyelid 1 mm below the lid margin, second left facial laceration approximately 1 cm below the lid margin, subconjunctival hemorrhage measuring 0.5 x 0.5 cm to the left conjunctiva are not temporal side pupil, no lacrimation, no hyphema, round pupil, extra-ocular movements intact, pupils equal and reactive to light bilaterally, mucous membranes moist. Cardiovascular: Heart regular rate and rhythm, S1&S2 audible, no murmurs, rubs or gallops Chest: Lungs clear to auscultation bilaterally, no rhonchi, no wheeze, no rales Abdomen: Bowel sounds present, abdomen soft, non-tender, non-distended, no organomegaly Musculoskeletal: Pulses present and equal in all extremities, no peripheral edema, multiple amputated toes of the left foot with broad-based abrasion measuring 3 x 3 mm over the anterior third toe Motor: no focal deficits noted Neurological: CN II-XII grossly intact, no focal motor or sensory deficits noted Skin: Intact with no visualized rashes, abrasions to the bilateral anterior knees Psych: Normal affect and mood ED course: 59-year-old male with multiple injuries after fall. Patient has multiple injuries including facial injuries, bilateral knee injuries and left toe injury. Lower extremity injuries appear to be abrasions. He does have laceration to the anterior maxillary area and left oral eyelid. Laceration was reviewed by Dr. Marquez of ophthalmology who reports that he does not need to have ophthalmology fixes laceration given that its within a reasonable distance from the lid margin. Supraorbital block was performed and lacerations repaired at bedside. Imaging of the chest, pelvis, bilateral knees and left toes were unremarkable. There was however findings of vascular congestion seen on his x- ray concerning for CHF exacerbation. Patient denies any shortness of breath. He is a sour given 40 mg of IV Lasix. Computed tomography scan of the brain and facial bones did not show any intracranial injury or fractures. There is however some preseptal swelling. Patient tolerated laceration repair at bedside well. EKGs benign. Patient feels well was [facility] He is given outpatient follow-up with Dr. Marquez of ophthalmology. Patient told that he has findings of congestive heart failure seen on his x-ray. He is advised follow-up with his primary care for outpatient follow-up of this. Return precautions advised. Patient verbally agrees to discharge plan. TENSOR. EKG interpretation: Ventricular rate 90, paced rhythm, MO interval 120, QS 140, QTc 526. No MO prolongation, no QTC prolongation, no ST or T-wave changes noted. Overall, this EKG is unremarkable - Related Data Home Medications Medication Instructions Recorded Confirmed lamoTRIgine [LaMICtal] 100 mg PO HS 01/20/19 03/15/19 Insulin Glargine,Hum.rec.anlog 35 unit SQ DAILY 01/29/19 03/15/19 [Lantus Solostar] Insulin Aspart [NovoLOG Flexpen] 5 units SQ AC-SUPPER 03/01/19 03/15/19 Sertraline [Zoloft] 50 mg PO DAILY 03/01/19 03/15/19 Furosemide [Lasix] 40 mg PO DAILY@1500 03/15/19 03/15/19 Furosemide [Lasix] 60 mg PO QAM 03/15/19 03/15/19 Levothyroxine Sodium [Synthroid] 50 mcg PO DAILY 03/15/19 03/15/19 Triamcinolone 0.1% Cream [Kenalog 1 applic TOPICAL BID 03/15/19 03/15/19 0.1% Cream] Previous Rx's Medication Instructions Recorded Atorvastatin [Lipitor] 80 mg PO HS 30 Days #30 tab 01/19/19 Metoprolol Tartrate [Lopressor] 25 mg PO BID 30 Days #60 tab 01/19/19 Aspirin 81 mg PO DAILY #30 chew 02/11/19 Potassium Chloride ER [K-Dur 20] 20 meq PO BID #60 tab.er.prt 02/11/19 Pantoprazole [Protonix] 40 mg PO AC-BRKFST #30 tablet. 03/08/19 Meropenem [Merrem] 1 gm IVPB Q12H #56 vial 03/22/19 ALPRAZolam [Xanax] 0.25 mg PO TID PRN tab 03/24/19 ALPRAZolam [Xanax] 0.25 mg PO TID PRN 3 Days #9 tab 03/24/19 INSULIN ASPART (NovoLOG) [NovoLOG 0 unit SQ ACHS vial 03/24/19 (formulary)] Meropenem [Merrem] 1 gm IVPB Q12HR vial 03/24/19 Temazepam [Restoril] 15 mg PO HS PRN 3 Days #3 cap 03/24/19 Allergies Allergy/AdvReac Type Severity Reaction Status Date / Time No Known Allergies Allergy Verified 03/15/19 19:40 Review of Systems ROS Statement: Those systems with pertinent positive or pertinent negative responses have been documented in the HPI. ROS Other: All systems not noted in ROS Statement are negative. Past Medical History Past Medical History: Heart Failure, Diabetes Mellitus, Hyperlipidemia, Hypertension, Neurologic Disorder Additional Past Medical History / Comment(s): IDDM type II, PVD, recent gangrene L great toe with amputation, 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 Kidney insufficiency History of Any Multi-Drug Resistant Organisms: CRE Date of last positivie culture/infection: 07/29/19 MRSA; 03/16/19 MDRO CRE MDRO Source:: Left Heel-MRSA; Toe-MDRO CRE Past Surgical History: Adenoidectomy, Tonsillectomy Additional Past Surgical History / Comment(s): L great toe amputation, L 5th toe amputation, L writst laceration repair, colonoscopy with benign polypectomies Past Anesthesia/Blood Transfusion Reactions: No Reported Reaction Past Psychological History: Anxiety, Bipolar, Depression Additional Psychological History / Comment(s): Pt resides with his parents. He currently is independent He has had a recent suicide attempt by cutting L wrist and was admitted to [facility]. He states he no longer feels suicidal. stopped smoking about three years ago. Denies significant alcohol or recreational drug use. His parents are highly involvedHis parents are highly involved. No animal exposures. No recent travel. Denied any sexual partners at this time.Denied any sexual partners at this time. Smoking Status: Former smoker Past Alcohol Use History: None Reported Additional Past Alcohol Use History / Comment(s): Pt started smoking in 1975 and quit in 2015. Past Drug Use History: None Reported Additional Drug Use History / Comment(s): Pt states he quit smoking marijuana and that he has not smoked marijuana in 4 months. - Past Family History Father Family Medical History: Diabetes Mellitus Additional Family Medical History / Comment(s): Father had gallbladder disease. He is 77yrs old. Mother Family Medical History: Hyperlipidemia Course Vital Signs 10/06/19 07:28 Temperature 98.1 F Pulse Rate 90 Respiratory 16 Rate Blood Pressure 115/84 O2 Sat by Pulse 98 Oximetry Procedures - Laceration Laceration #1 Consent Obtained: verbal consent Indication: laceration Site: face Description: linear (1 cm) Depth: simple, single layer Anesthetic Used: lidocaine 1% Anesthesia Technique: nerve block (infraorbital nerve block) Pre-repair: irrigated extensively Type of Sutures: nylon Size of Sutures: 6-0 Patient Tolerated Procedure: well Laceration #2 Consent Obtained: verbal consent Indication: laceration Site: other (lower eye lid right) Description: linear Depth: simple, single layer Anesthetic Used: lidocaine 1% Anesthesia Technique: nerve block (infraorbital nerve block) Pre-repair: irrigated extensively Type of Sutures: nylon Size of Sutures: 6-0 Medical Decision Making - Lab Data Result diagrams: 10/06/19 07:40 10/06/19 07:40 Lab Results 10/06/19 10/06/19 10/06/19 Range/Units 07:40 07:40 07:40 WBC 8.8 (3.8-10.6) k/uL RBC 3.19 L (4.30-5.90) m/uL Hgb 8.7 L (13.0-17.5) gm/dL Hct 28.8 L (39.0-53.0) % MCV 90.4 (80.0-100.0) fL MCH 27.1 (25.0-35.0) pg MCHC 30.0 L (31.0-37.0) g/dL RDW 15.5 (11.5-15.5) % Plt Count 437 (150-450) k/uL Neutrophils % 71 % Lymphocytes % 12 % Monocytes % 9 % Eosinophils % 3 % Basophils % 2 % Neutrophils # 6.3 (1.3-7.7) k/uL Lymphocytes # 1.1 (1.0-4.8) k/uL Monocytes # 0.8 (0-1.0) k/uL Eosinophils # 0.3 (0-0.7) k/uL Basophils # 0.1 (0-0.2) k/uL Hypochromasia Marked Poikilocytosis Slight PT 12.0 (9.0-12.0) sec INR 1.2 H (<1.2) APTT 29.5 (22.0-30.0) sec Sodium 140 (137-145) mmol/L Potassium 3.8 (3.5-5.1) mmol/L Chloride 103 (98-107) mmol/L Carbon Dioxide 25 (22-30) mmol/L Anion Gap 12 mmol/L BUN 43 H (9-20) mg/dL Creatinine 1.36 H (0.66-1.25) mg/dL Est GFR (CKD-EPI)AfAm 66 (>60 ml/min/1.73 sqM) Est GFR (CKD-EPI)NonAf 57 (>60 ml/min/1.73 sqM) Glucose 152 H (74-99) mg/dL Calcium 8.6 (8.4-10.2) mg/dL Disposition Clinical Impression: Fall, Facial laceration, CHF (congestive heart failure) Disposition: HOME SELF-CARE Condition: Good Instructions (If sedation given, give patient instructions): Fall Prevention for Older Adults (ED) Additional Instructions: Follow-up with brake drum molder Dr. Marquez for follow-up of eyelid laceration and facial laceration. There were findings of congestive heart failure on her x- ray that he should follow-up with her primary care doctor for. Lacerations should be removed in 3-5 days. Is patient prescribed a controlled substance at d/c from ED?: No Referrals: Fredy Bee DO [Primary Care Provider] - 1-2 days Naveed Marquez MD [STAFF PHYSICIAN] - 1-2 days Time of Disposition: 09:21
[2019-10-06 08:38] LABS: WBC 8.8 k/uL (3.8-10.6)
[2019-10-06 08:39] LABS: Basophils # (A) 0.1 k/uL (0-0.2); Basophils % (A) 2 %; Eosinophils # (A) 0.3 k/uL (0-0.7); Eosinophils % (A) 3 %; HCT 28.8 % (39.0-53.0); HGB 8.7 gm/dL (13.0-17.5); Hypochromasia Marked; Lymphocytes # (A) 1.1 k/uL (1.0-4.8); Lymphocytes % (A) 12 %; MCH 27.1 pg (25.0-35.0); MCV 90.4 fL (80.0-100.0); Mean Platelet Volume 7.2; Monocytes # (A) 0.8 k/uL (0-1.0); Monocytes % (A) 9 %; Neutrophils # (A) 6.3 k/uL (1.3-7.7); Neutrophils % (A) 71 %; Platelet Count 437 k/uL (150-450); Poikilocytosis Slight; RBC 3.19 m/uL (4.30-5.90); RDW 15.5 % (11.5-15.5)
--- NOTE | 2019-10-06 08:39 | CT ---
EXAMINATION TYPE: CT brain cspine wo con, CT facial bones wo con DATE OF EXAM: 10/06/2019 COMPARISON: CTA head February 05, 2019 HISTORY: Fall injury with headache, facial laceration, and neck pain. CT DLP: 1245 mGycm. Automated Exposure Control for Dose Reduction was Utilized. TECHNIQUE: CT scan of the head, facial bones, and cervical spine are all performed without contrast. FINDINGS: There is no acute intracranial hemorrhage or midline shift identified diffuse ventricular and sulcal prominence consistent with moderate atrophy. Some areas of low attenuation in the deep wh ite matter consistent with mild chronic small vessel ischemic change redemonstrated. The calvarium is intact. The mandible is intact. Temporomandibular joints are maintained bilaterally. Nasal bones are intact. Zygomatic arches are intact. Pterygoid plates are intact. Orbital floors and kitchen are intact. Globes are intact bilaterally. Intraconal fat is preserved. There is moderate subcutaneous hematoma left pr eseptal region extending superiorly with overlying gauze material present. Minimal mucosal thickenin g inferior left maxillary sinus with tiny mucous retention cyst or polyp on image 43 otherwise parana amy sinuses are clear. Cervical spine is visualized in its entirety from C1 through upper thoracic levels and demonstrates levoconvex scoliotic curvature positioning upper thoracic spine without evidence of acute fracture or dislocation. Prevertebral soft tissue appears within normal limits. The C1-C2 articulation is with in normal limits on the coronal images. Vertebral body heights and disc space heights fairly well ma intained. Spinal canal is preserved. Axial images show multilevel vertebral facet degenerative change s contributing to multilevel bilateral neural foraminal narrowing. Asymmetric atrophy due to left thy roid lobe is present. Lung apices are respiratory motion artifact degradation with this partial visua lization of at least small left pleural effusion extending to lung apex and moderate to large right-s ided pleural effusion. Partial visualization of pacemaker wires is noted. Moderate to severe calcifie d plaque bilateral carotid bulbs extending to proximal internal carotid arteries is greater on the le ft. IMPRESSION: 1. There is no acute fracture or dislocation evident in the cervical spine. Note is made of partial v isualization of at least small left and suspected moderate to large size right pleural effusions. 2. No acute intracranial hemorrhage or midline shift is seen. Background moderate diffuse cerebral at rophy and mild chronic small vessel ischemic change redemonstrated. 3. Moderate-sized left acute preseptal hematoma. No postseptal involvement. No acute displaced facial bone fracture.
[2019-10-06 08:41] LABS: Calcium 8.6 mg/dL (8.4-10.2); Potassium 3.8 mmol/L (3.5-5.1)
[2019-10-06 08:52] LABS: INR 1.2 (<1.2); Partial Thromboplastin Time 29.5 sec (22.0-30.0)
--- NOTE | 2019-10-06 08:56 | XR ---
EXAMINATION TYPE: XR pelvis AP view DATE OF EXAM: 10/06/2019 CLINICAL HISTORY: Fall injury with pain. TECHNIQUE: A single AP view of the pelvis is obtained. COMPARISON: None. FINDINGS: There is no acute fracture/dislocation evident in the pelvis. The sacroiliac joints show some suspected is symmetric narrowing right superior sacroiliac joint. Moderate to severe axial joint space loss in both hips with moderate acetabular spurring bilaterally. Pubic symphysis is intact. Va scular calcifications and phleboliths overlie the lateral pelvis with vascular calcification extendin g into bilateral groin regions. Rounded densities right lower quadrant just above iliac crest could r eflect nondigested pills in the cecum. IMPRESSION: There is no acute fracture or dislocation in the pelvis.
--- NOTE | 2019-10-06 08:58 | XR ---
EXAMINATION TYPE: XR chest 1V portable DATE OF EXAM: 10/06/2019 COMPARISON: Chest x-ray March 21, 2019 HISTORY: Chest pain after fall injury. TECHNIQUE: Single frontal view of the chest is obtained. FINDINGS: The cardiac silhouette size remains enlarged. There is pneumocephaly pacemaker/AICD. There is background chronic emphysematous change with mild interstitial edema and moderate size right pleu ral effusion. Small left pleural effusion on CT cervical spine less well seen on frontal x-ray. There is associated right basilar compressive atelectasis. The osseous structures are demineralized. IMPRESSION: Correlate for CHF exacerbation as there is redemonstration of cardiomegaly with new mild to moderate central vascular congestion and interstitial edema. Moderate-sized right pleural effusio n is increased in size from prior. Background chronic emphysematous change is felt present.
--- NOTE | 2019-10-06 09:01 | XR ---
EXAMINATION TYPE: XR toes LT DATE OF EXAM: 10/06/2019 COMPARISON: Left foot x-ray January 05, 2019. HISTORY: Pain after fall injury. TECHNIQUE: 3 views of left toes are acquired. FINDINGS: Osseous structures are demineralized which is noted to lower radiographic sensitivity. Ampu tation defect passed proximal metaphysis fifth proximal phalanx redemonstrated. There is new amputati on defect of the first and fourth toes past metatarsal level. Vascular calcification and moderate sub cutaneous edema in the soft tissue is redemonstrated. Flexion and the second and third toes is again seen more prominent on current study. No acute displaced fracture is present. IMPRESSION: No acute displaced fracture in the toes identified.
--- NOTE | 2019-10-06 09:01 | XR ---
EXAMINATION TYPE: XR knee 4V bilateral DATE OF EXAM: 10/06/2019 COMPARISON: NONE HISTORY: Pain TECHNIQUE: Four views are submitted of each knee. FINDINGS: Diffuse osteopenia and arthropathy of the tricompartment joint spaces. Osseous structures are intact. No acute fracture seen. Vascular calcifications are noted. Small amount of fluid in the suprapatel lar bursa bilaterally. IMPRESSION: 1. No acute fracture or dislocation.
[2019-10-06] MEDS ORDERED: FUROSEMIDE 10 MG/ML 4 ML VIAL IV STA (09:15)
[2019-10-06 09:43] VITALS: BP 121/86; PULSE 76; RESP 20; TEMP 98.3
== END 2019-10-06 10:00 | disposition home or self-care (01) ==
LOC: EC 07:11
DX: S01.81XA Laceration without foreign body of other part of head, initial encounter (principal); I11.0 Hypertensive heart disease with heart failure; I50.9 Heart failure, unspecified; E11.51 Type 2 diabetes mellitus with diabetic peripheral angiopathy without gangrene; F41.9 Anxiety disorder, unspecified; Z79.4 Long term (current) use of insulin; Z79.890 Hormone replacement therapy; Z79.899 Other long term (current) drug therapy; Z87.891 Personal history of nicotine dependence; Z95.0 Presence of cardiac pacemaker; W06.XXXA Fall from bed, initial encounter; Y92.003 Bedroom of unspecified non-institutional (private) residence as the place of occurrence of the external cause
CPT/HCPCS: 99284; 12011; 96374; 36415; 93005; 80048; 85025; 85610; 85730; 73564; 72170; 73660; 71045; 72125; 70486; 70450; J1940; J2001

== ENCOUNTER 2019-10-08 03:58 | Inpatient (IN) | payer OTHER ==
[2019-10-08 04:35] LABS: Basophils # (A) 0.1 k/uL (0-0.2); Basophils % (A) 1 %; Eosinophils # (A) 0.2 k/uL (0-0.7); Eosinophils % (A) 2 %; HCT 28.4 % (39.0-53.0); HGB 8.5 gm/dL (13.0-17.5); Hypochromasia Marked; Lymphocytes # (A) 1.2 k/uL (1.0-4.8); Lymphocytes % (A) 13 %; Mean Platelet Volume 7.6; Monocytes # (A) 0.8 k/uL (0-1.0); Monocytes % (A) 8 %; Neutrophils # (A) 7.2 k/uL (1.3-7.7); Neutrophils % (A) 74 %; Platelet Count 431 k/uL (150-450); Poikilocytosis Slight; RBC 3.15 m/uL (4.30-5.90); RDW 15.3 % (11.5-15.5); WBC 9.6 k/uL (3.8-10.6)
[2019-10-08 04:46] LABS: ALT 22 U/L (4-49); AST 38 U/L (17-59); African American GFR (CKD) 55 (>60 ml/min/1.73 sqM); Albumin 3.5 g/dL (3.5-5.0); Alkaline Phosphatase 231 U/L (38-126); Amylase <30 U/L (30-110); Anion Gap 13 mmol/L; Blood Urea Nitrogen 54 mg/dL (9-20); Calcium 8.5 mg/dL (8.4-10.2); Carbon Dioxide 22 mmol/L (22-30); Chloride 101 mmol/L (98-107); Glucose 197 mg/dL (74-99); Non-African American GFR(CKD) 48 (>60 ml/min/1.73 sqM); Potassium 4.3 mmol/L (3.5-5.1); Sodium 136 mmol/L (137-145); Total Bilirubin 0.6 mg/dL (0.2-1.3); Total Protein 6.6 g/dL (6.3-8.2)
[2019-10-08] MEDS ORDERED: FUROSEMIDE 10 MG/ML 10 ML VIAL IV STA (05:48)
[2019-10-08 06:36] LABS: Appearance,Urine Clear (Clear); Bacteria,Urine Many /hpf; Bilirubin,Urine Negative (Negative); Blood,Urine Negative (Negative); Budding Yeast,Urine Rare /hpf; Color,Urine Yellow; Glucose,Urine (UA) Negative (Negative); Hyaline Casts,Urine 64 /lpf (0-2); Ketones,Urine Negative (Negative); Leukocyte Esterase,Urine Moderate (Negative); Mucus,Urine Rare /hpf; Nitrite,Urine Negative (Negative); Protein,Urine Trace (Negative); RBC,Urine <1 /hpf (0-5); Specific Gravity,Urine 1.015 (1.001-1.035); Squamous Epithelial Cell,Urine <1 /hpf (0-4); WBC,Urine 11 /hpf (0-5)
[2019-10-08] MEDS ORDERED: TEMAZEPAM 15 MG CAP PO PRN (06:44)
--- NOTE | 2019-10-08 06:49 | ED ---
Abdominal Pain HPI - General Chief Complaint: Abdominal Pain Stated Complaint: Mental Health Time Seen by Provider: 10/08/19 04:28 Source: patient, EMS Mode of arrival: EMS - History of Present Illness Initial Comments: This patient is a 59-year-old man who presents with complaint of swelling. He is complaining of pain to the lower abdomen and legs related to what he believes is fluid retention. The patient's comes in requesting to have Lasix and Machado catheter to help him get some of the fluid off. He is not able to state exactly how long this problem has been getting worse. Patient denies increasing dyspnea or productive cough. MD Complaint: abdominal pain -: days(s) Location: diffuse Consistency: constant Improves With: nothing Worsens With: nothing - Related Data Home Medications Medication Instructions Recorded Confirmed Insulin Glargine,Hum.rec.anlog 28 unit SQ DAILY 01/29/19 10/08/19 [Lantus Solostar] Furosemide [Lasix] 80 mg PO BID@0800,1600 03/15/19 10/08/19 ALPRAZolam [Xanax] 0.25 mg PO BID 10/08/19 10/08/19 Acetaminophen Tab [Tylenol Tab] 650 mg PO Q6H PRN 10/08/19 10/08/19 Carvedilol [Coreg] 6.25 mg PO BID 10/08/19 10/08/19 Clopidogrel [Plavix] 75 mg PO DAILY 10/08/19 10/08/19 Docusate [Colace] 100 mg PO BID 10/08/19 10/08/19 Ergocalciferol [Vitamin D2] 50,000 unit PO TH 10/08/19 10/08/19 Ferrous Sulfate [Feosol] 325 mg PO Q48H 10/08/19 10/08/19 HYDROcodone/APAP 5-325MG [[place] 1 tab PO Q6H PRN 10/08/19 10/08/19 5-325] Insulin Lispro [humaLOG Kwikpen] 15 unit SQ AC-TID 10/08/19 10/08/19 Insulin Lispro [humaLOG Kwikpen] See Protocol SQ ACHS 10/08/19 10/08/19 Ipratropium-Albuterol Nebulize 3 ml INHALATION RT-Q4H PRN 10/08/19 10/08/19 [Duoneb 0.5 mg-3 mg/3 ml Soln] Iron Polysaccharide Complex 150 mg PO HS 10/08/19 10/08/19 [Polysaccharide Iron] Levothyroxine Sodium [Synthroid] 75 mcg PO DAILY 10/08/19 10/08/19 Loratadine [Claritin] 10 mg PO DAILY 10/08/19 10/08/19 Magnesium Oxide [Mag-Ox] 400 mg PO BID@0800,1600 10/08/19 10/08/19 Omeprazole 40 mg PO BID 10/08/19 10/08/19 Prostat 1 can PO DAILY 10/08/19 10/08/19 Sertraline [Zoloft] 100 mg PO DAILY 10/08/19 10/08/19 Previous Rx's Medication Instructions Recorded Atorvastatin [Lipitor] 80 mg PO HS 30 Days #30 tab 01/19/19 Aspirin 81 mg PO DAILY #30 chew 02/11/19 Potassium Chloride ER [K-Dur 20] 20 meq PO BID #60 tab.er.prt 02/11/19 Allergies Allergy/AdvReac Type Severity Reaction Status Date / Time lamotrigine [From Lamictal] Allergy Unknown Verified 10/08/19 10:10 Review of Systems ROS Statement: Those systems with pertinent positive or pertinent negative responses have been documented in the HPI. ROS Other: All systems not noted in ROS Statement are negative. Constitutional: Denies: fever, chills Respiratory: Denies: cough, dyspnea Cardiovascular: Reports: as per HPI, orthopnea, edema. Denies: chest pain, pa lpitations, syncope Gastrointestinal: Reports: as per HPI, abdominal pain. 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 Kidney insufficiency History of Any Multi-Drug Resistant Organisms: CRE Date of last positivie culture/infection: 07/29/19 MRSA; 03/16/19 MDRO CRE MDRO Source:: Left Heel-MRSA; Toe-MDRO CRE Past Surgical History: Adenoidectomy, Tonsillectomy Additional Past Surgical History / Comment(s): L great toe amputation, L 5th toe amputation, L writst laceration repair, colonoscopy with benign polypectomies Past Anesthesia/Blood Transfusion Reactions: No Reported Reaction Past Psychological History: Anxiety, Bipolar, Depression Smoking Status: Former smoker Past Alcohol Use History: None Reported Past Drug Use History: None Reported - Past Family History Father Family Medical History: Diabetes Mellitus Additional Family Medical History / Comment(s): Father had gallbladder disease. He is 77yrs old. Mother Family Medical History: Hyperlipidemia General Exam General appearance: alert, in no apparent distress Head exam: Present: atraumatic, normocephalic Eye exam: Present: normal appearance. Absent: scleral icterus, conjunctival injection ENT exam: Present: mucous membranes dry Respiratory exam: Present: normal lung sounds bilaterally. Absent: respiratory distress, wheezes, rales, rhonchi, stridor Cardiovascular Exam: Present: regular rate, normal rhythm, normal heart sounds. Absent: systolic murmur, diastolic murmur, rubs, gallop GI/Abdominal exam: Present: soft, other (There is edema to the lower abdomen.). Absent: distended, tenderness, guarding, rebound, rigid exam: Present: other (Scrotal edema present) Extremities exam: Present: normal capillary refill, pedal edema. Absent: calf tenderness Neurological exam: Present: alert Skin exam: Present: warm, dry, intact, normal color. Absent: rash Course Vital Signs 10/08/19 10/08/19 10/08/19 03:59 06:10 08:00 Temperature 98.9 F Pulse Rate 86 89 84 Respiratory 22 22 20 Rate Blood Pressure 119/77 125/71 125/79 O2 Sat by Pulse 98 99 100 Oximetry 10/08/19 10/08/19 10/08/19 09:00 10:00 11:00 Temperature Pulse Rate Respiratory 20 20 20 Rate Blood Pressure O2 Sat by Pulse 100 100 100 Oximetry 10/08/19 10/08/19 10/08/19 12:00 13:00 14:00 Temperature Pulse Rate 72 Respiratory 20 20 20 Rate Blood Pressure 105/72 O2 Sat by Pulse 100 100 100 Oximetry 10/08/19 10/08/1910/08/20 15:00 16:00 17:41 Temperature Pulse Rate 75 Respiratory 20 20 20 Rate Blood Pressure 112/70 O2 Sat by Pulse 100 100 Oximetry Medical Decision Making - Lab Data Result diagrams: 10/10/19 06:13 10/10/19 06:13 Lab Results 10/08/19 10/08/19 10/08/19 Range/Units 04:01 04:01 04:01 WBC 9.6 (3.8-10.6) k/uL RBC 3.15 L (4.30-5.90) m/uL Hgb 8.5 L (13.0-17.5) gm/dL Hct 28.4 L (39.0-53.0) % MCV 90.0 (80.0-100.0) fL MCH 27.0 (25.0-35.0) pg MCHC 30.0 L (31.0-37.0) g/dL RDW 15.3 (11.5-15.5) % Plt Count 431 (150-450) k/uL Neutrophils % 74 % Lymphocytes % 13 % Monocytes % 8 % Eosinophils % 2 % Basophils % 1 % Neutrophils # 7.2 (1.3-7.7) k/uL Lymphocytes # 1.2 (1.0-4.8) k/uL Monocytes # 0.8 (0-1.0) k/uL Eosinophils # 0.2 (0-0.7) k/uL Basophils # 0.1 (0-0.2) k/uL Hypochromasia Marked Poikilocytosis Slight Sodium 136 L (137-145) mmol/L Potassium 4.3 (3.5-5.1) mmol/L Chloride 101 (98-107) mmol/L Carbon Dioxide 22 (22-30) mmol/L Anion Gap 13 mmol/L BUN 54 H (9-20) mg/dL Creatinine 1.58 H (0.66-1.25) mg/dL Est GFR (CKD-EPI)AfAm 55 (>60 ml/min/1.73 sqM) Est GFR (CKD-EPI)NonAf 48 (>60 ml/min/1.73 sqM) Glucose 197 H (74-99) mg/dL Plasma Lactic Acid [place] 1.9 (0.7-2.0) mmol/L Calcium 8.5 (8.4-10.2) mg/dL Total Bilirubin 0.6 (0.2-1.3) mg/dL AST 38 (17-59) U/L ALT 22 (4-49) U/L Alkaline Phosphatase 231 H (38-126) U/L Troponin I (0.000-0.034) ng/mL NT-Pro-B Natriuret Pep pg/mL Total Protein 6.6 (6.3-8.2) g/dL Albumin 3.5 (3.5-5.0) g/dL Amylase <30 L (30-110) U/L Lipase 71 (23-300) U/L Urine Color Urine Appearance (Clear) Urine pH (5.0-8.0) Ur Specific [place] (1.001-1.035) Urine Protein (Negative) Urine Glucose (UA) (Negative) Urine Ketones (Negative) Urine Blood (Negative) Urine Nitrite (Negative) Urine Bilirubin (Negative) Urine Urobilinogen (<2.0) mg/dL Ur Leukocyte Esterase (Negative) Urine RBC (0-5) /hpf Urine WBC (0-5) /hpf Urine WBC Clumps (None) /hpf Ur Squamous Epith Cells (0-4) /hpf Urine Bacteria (None) /hpf Hyaline Casts (0-2) /lpf Urine Mucus (None) /hpf Urine Yeast (Budding) (None) /hpf 10/08/19 10/08/19 10/08/19 Range/Units 04:01 04:01 06:05 WBC (3.8-10.6) k/uL RBC (4.30-5.90) m/uL Hgb (13.0-17.5) gm/dL Hct (39.0-53.0) % MCV (80.0-100.0) fL MCH (25.0-35.0) pg MCHC (31.0-37.0) g/dL RDW (11.5-15.5) % Plt Count (150-450) k/uL Neutrophils % % Lymphocytes % % Monocytes % % Eosinophils % % Basophils % % Neutrophils # (1.3-7.7) k/uL Lymphocytes # (1.0-4.8) k/uL Monocytes # (0-1.0) k/uL Eosinophils # (0-0.7) k/uL Basophils # (0-0.2) k/uL Hypochromasia Poikilocytosis Sodium (137-145) mmol/L Potassium (3.5-5.1) mmol/L Chloride (98-107) mmol/L Carbon Dioxide (22-30) mmol/L Anion Gap mmol/L BUN (9-20) mg/dL Creatinine (0.66-1.25) mg/dL Est GFR (CKD-EPI)AfAm (>60 ml/min/1.73 sqM) Est GFR (CKD-EPI)NonAf (>60 ml/min/1.73 sqM) Glucose (74-99) mg/dL Plasma Lactic Acid [place] (0.7-2.0) mmol/L Calcium (8.4-10.2) mg/dL Total Bilirubin (0.2-1.3) mg/dL AST (17-59) U/L ALT (4-49) U/L Alkaline Phosphatase (38-126) U/L Troponin I 0.021 (0.000-0.034) ng/mL NT-Pro-B Natriuret Pep 6250 pg/mL Total Protein (6.3-8.2) g/dL Albumin (3.5-5.0) g/dL Amylase (30-110) U/L Lipase (23-300) U/L Urine Color Yellow Urine Appearance Clear (Clear) Urine pH 5.0 (5.0-8.0) Ur Specific [place] 1.015 (1.001-1.035) Urine Protein Trace H (Negative) Urine Glucose (UA) Negative (Negative) Urine Ketones Negative (Negative) Urine Blood Negative (Negative) Urine Nitrite Negative (Negative) Urine Bilirubin Negative (Negative) Urine Urobilinogen 2.0 (<2.0) mg/dL Ur Leukocyte Esterase Moderate H (Negative) Urine RBC <1 (0-5) /hpf Urine WBC 11 H (0-5) /hpf Urine WBC Clumps Rare H (None) /hpf Ur Squamous Epith Cells <1 (0-4) /hpf Urine Bacteria Many H (None) /hpf Hyaline Casts 64 H (0-2) /lpf Urine Mucus Rare H (None) /hpf Urine Yeast (Budding) Rare H (None) /hpf Disposition Clinical Impression: Anasarca, CHF (congestive heart failure) Disposition: ADMITTED IP TO THIS HOSP Condition: Poor
[2019-10-08] MEDS ORDERED: PANTOPRAZOLE 40 MG TABLET PO SCH (07:30)
[2019-10-08 07:54] LABS: Glucose,Whole Blood 188 mg/dL (75-99)
[2019-10-08] MEDS: ASPIRIN 81 MG PO SCH (08:39)
[2019-10-08] MEDS: INSULIN ASPART (NovoLOG) 100 UNIT/ML VIAL SQ SCH ×4 (08:39→20:30)
[2019-10-08] MEDS: HEPARIN SODIUM,PORCINE 5,000 UNIT/ML 1 ML VIAL SQ SCH ×2 (08:40→16:06)
[2019-10-08] MEDS: ALPRAZolam 0.25 MG TAB PO PRN ×2 (08:43→18:53)
[2019-10-08] MEDS: METOPROLOL TARTRATE 25 MG TAB PO SCH ×2 (08:43→20:30)
[2019-10-08] MEDS: POTASSIUM CHLORIDE ER 20 MEQ TAB.ER PO SCH ×2 (08:44→20:30)
[2019-10-08] MEDS: LEVOTHYROXINE 50 MCG TAB PO SCH (09:04)
[2019-10-08] MEDS: SERTRALINE 50 MG TAB PO SCH (09:04)
[2019-10-08 12:30] LABS: Glucose,Whole Blood 142 mg/dL (75-99)
[2019-10-08 18:06] LABS: Glucose,Whole Blood 96 mg/dL (75-99)
[2019-10-08] MEDS ORDERED: ACETAMINOPHEN TAB 325 MG TAB PO PRN (18:34)
--- NOTE | 2019-10-08 18:38 | P.HPIM ---
History of Present Illness H&P Date: 10/08/19 59-year-old man who presents with complaint of swelling. He is complaining of pain to the lower abdomen and legs related to what he believes is fluid retention. The patient's comes in requesting to have Lasix and Machado catheter to help him get some of the fluid off. He is not able to state exactly how long this problem has been getting worse. Patient denies increasing dyspnea or productive cough Workup in ED with an EKG shows paced rhythm; chest x-ray was not done in ER; we will order chest x-ray; blood work shows a CBC with white blood count of 9.6, hemoglobin of 8.5; UA is positive for moderate leukocyte esterase, WBCs and bacteria with rare yeast; chemical profile shows sodium of 136, potassium of 4.3, BUN/creatinine of 54/1.54; troponin of 0.021 and BNP elevated at 6250; patient was started on IV Lasix and is admitted for further cardiology evaluation Review of Systems REVIEW OF SYSTEMS: CONSTITUTIONAL: No fever, no malaise, no fatigue. HEENT: No recent visual problems or hearing problems. Denied any sore throat. CARDIOVASCULAR: No chest pain, orthopnea, PND, no palpitations, no syncope. PULMONARY: No shortness of breath, no cough, no hemoptysis. GASTROINTESTINAL: No diarrhea, no nausea, no vomiting, no abdominal pain. NEUROLOGICAL: No headaches, no weakness, no numbness. HEMATOLOGICAL: Denies any bleeding or petechiae. GENITOURINARY: Denies any burning micturition, frequency, or urgency. MUSCULOSKELETAL/RHEUMATOLOGICAL: Denies any joint pain, swelling, or any muscle pain. ENDOCRINE: Denies any polyuria or polydipsia. The rest of the 14-point review of systems is negative. Past Medical History Past Medical History: Heart Failure, Diabetes Mellitus, GERD/Reflux, Hyperlipidemia, Hypertension, Neurologic Disorder, Renal Disease, Thyroid Disorder, Vascular Disorder Additional Past Medical History / Comment(s): IDDM type II, neuropathy L foot, past bilateral diabetic foot ulcers/gangrene/oseomylitis, toe amputations, PVD, Fowler's palsy L side of face, CKD stage III, iron anemia, bilateral leg/pedal edema, muscle weakness, falls, allergic rhinitis, constipation, hypothyroid, past medical record documents duodenal ulcer but pt does not recall this. History of Any Multi-Drug Resistant Organisms: CRE Date of last positivie culture/infection: 07/29/19 MRSA; 03/16/19 MDRO CRE MDRO Source:: Left Heel-MRSA; Toe-MDRO CRE Past Surgical History: Adenoidectomy, AICD, Tonsillectomy Additional Past Surgical History / Comment(s): 07/2019 AICD at [facility], L/R great toe amputations, L 5th toe amputation, L writst laceration repair, colonoscopy with benign polypectomies, EGDs, midlines, Past Anesthesia/Blood Transfusion Reactions: No Reported Reaction Type of Cardiac Device: AICD Device Placement Date:: 07/2019 Smoking Status: Former smoker - Past Family History Father Family Medical History: Diabetes Mellitus Additional Family Medical History / Comment(s): Father had gallbladder disease. He is 77yrs old. Mother Family Medical History: Hyperlipidemia Medications and Allergies Home Medications Medication Instructions Recorded Confirmed Type Atorvastatin [Lipitor] 80 mg PO HS 30 Days #30 tab 01/19/19 10/08/19 Rx Insulin Glargine,Hum.rec.anlog 28 unit SQ DAILY 01/29/19 10/08/19 History [Lantus Solostar] Aspirin 81 mg PO DAILY #30 chew 02/11/19 10/08/19 Rx Potassium Chloride ER [K-Dur 20] 20 meq PO BID #60 tab.er.prt 02/11/19 10/08/19 Rx Furosemide [Lasix] 80 mg PO BID@0800,1600 03/15/19 10/08/19 History ALPRAZolam [Xanax] 0.25 mg PO BID 10/08/19 10/08/19 History Acetaminophen Tab [Tylenol Tab] 650 mg PO Q6H PRN 10/08/19 10/08/19 History Carvedilol [Coreg] 6.25 mg PO BID 10/08/19 10/08/19 History Clopidogrel [Plavix] 75 mg PO DAILY 10/08/19 10/08/19 History Docusate [Colace] 100 mg PO BID 10/08/19 10/08/19 History Ergocalciferol [Vitamin D2] 50,000 unit PO TH 10/08/19 10/08/19 History Ferrous Sulfate [Feosol] 325 mg PO Q48H 10/08/19 10/08/19 History HYDROcodone/APAP 5-325MG [[place] 1 tab PO Q6H PRN 10/08/19 10/08/19 History 5-325] Insulin Lispro [humaLOG Kwikpen] 15 unit SQ AC-TID 10/08/19 10/08/19 History Insulin Lispro [humaLOG Kwikpen] See Protocol SQ ACHS 10/08/19 10/08/19 History Ipratropium-Albuterol Nebulize 3 ml INHALATION RT-Q4H PRN 10/08/19 10/08/19 History [Duoneb 0.5 mg-3 mg/3 ml Soln] Iron Polysaccharide Complex 150 mg PO HS 10/08/19 10/08/19 History [Polysaccharide Iron] Levothyroxine Sodium [Synthroid] 75 mcg PO DAILY 10/08/19 10/08/19 History Loratadine [Claritin] 10 mg PO DAILY 10/08/19 10/08/19 History Magnesium Oxide [Mag-Ox] 400 mg PO BID@0800,1600 10/08/19 10/08/19 History Omeprazole 40 mg PO BID 10/08/19 10/08/19 History Prostat 1 can PO DAILY 10/08/19 10/08/19 History Sertraline [Zoloft] 100 mg PO DAILY 10/08/19 10/08/19 History Allergies Allergy/AdvReac Type Severity Reaction Status Date / Time lamotrigine [From Lamictal] Allergy Unknown Verified 10/08/19 10:10 Physical Exam Vitals: Vital Signs Temp Pulse Resp BP Pulse Ox 10/08/19 12:00 72 20 105/72 100 10/08/19 11:00 20 100 10/08/19 10:00 20 100 10/08/19 09:00 20 100 10/08/19 08:00 84 20 125/79 100 10/08/19 06:10 89 22 125/71 99 10/08/19 03:59 98.9 F 86 22 119/77 98 Intake and Output 10/07/19 10/08/19 10/08/19 22:59 06:59 14:59 Other: Weight 111.13 kg 111.13 kg PHYSICAL EXAMINATION: GENERAL: The patient is alert and oriented x3, not in any acute distress. Well developed, well nourished. HEENT: Pupils are round and equally reacting to light. EOMI. No scleral icterus. No conjunctival pallor. Normocephalic, atraumatic. No pharyngeal erythema. No thyromegaly. CARDIOVASCULAR: S1 and S2 present. No murmurs, rubs, or gallops. PULMONARY: Chest is clear to auscultation, no wheezing or crackles. ABDOMEN: Soft, nontender, nondistended, normoactive bowel sounds. No palpable organomegaly. MUSCULOSKELETAL: No joint swelling or deformity. EXTREMITIES: No cyanosis, clubbing, or pedal edema. NEUROLOGICAL: Gross neurological examination did not reveal any focal deficits. SKIN: No rashes. Results CBC & Chem 7: 10/08/19 04:01 10/08/19 04:01 Labs: Abnormal Lab Results - Last 24 Hours (Table) 10/08/19 10/08/19 10/08/19 Range/Units 04:01 04:01 06:05 RBC 3.15 L (4.30-5.90) m/uL Hgb 8.5 L (13.0-17.5) gm/dL Hct 28.4 L (39.0-53.0) % MCHC 30.0 L (31.0-37.0) g/dL Sodium 136 L (137-145) mmol/L BUN 54 H (9-20) mg/dL Creatinine 1.58 H (0.66-1.25) mg/dL Glucose 197 H (74-99) mg/dL POC Glucose (mg/dL) (75-99) mg/dL Alkaline Phosphatase 231 H (38-126) U/L Amylase <30 L (30-110) U/L Urine Protein Trace H (Negative) Ur Leukocyte Esterase Moderate H (Negative) Urine WBC 11 H (0-5) /hpf Urine WBC Clumps Rare H (None) /hpf Urine Bacteria Many H (None) /hpf Hyaline Casts 64 H (0-2) /lpf Urine Mucus Rare H (None) /hpf Urine Yeast (Budding) Rare H (None) /hpf 10/08/19 10/08/19 Range/Units 07:52 12:18 RBC (4.30-5.90) m/uL Hgb (13.0-17.5) gm/dL Hct (39.0-53.0) % MCHC (31.0-37.0) g/dL Sodium (137-145) mmol/L BUN (9-20) mg/dL Creatinine (0.66-1.25) mg/dL Glucose (74-99) mg/dL POC Glucose (mg/dL) 188 H 142 H (75-99) mg/dL Alkaline Phosphatase (38-126) U/L Amylase (30-110) U/L Urine Protein (Negative) Ur Leukocyte Esterase (Negative) Urine WBC (0-5) /hpf Urine WBC Clumps (None) /hpf Urine Bacteria (None) /hpf Hyaline Casts (0-2) /lpf Urine Mucus (None) /hpf Urine Yeast (Budding) (None) /hpf Thrombosis Risk Factor Assmnt - Choose All That Apply Any of the Below Risk Factors Present?: Yes Each Factor Represents 1 point: Age 41-60 years, Obesity (BMI >25), Swollen legs (current) Other Risk Factors: No Other congenital or acquired thrombophilia - If yes, enter type in comment: No Thrombosis Risk Factor Assessment Total Risk Factor Score: 3 Thrombosis Risk Factor Assessment Level: Moderate Risk Assessment and Plan Assessment: 1. Acute exacerbation CHF; we will continue with Lasix 40 mg IV every 12 hours; monitor strict ANAYA's, daily weights, renal function and electrolytes; continue with low-salt and fluid restricted diet; order 2-D echo; cardiology to see patient and make further recommendations 2. Acute renal injury; questionable chronic kidney disease; baseline is not clear at this time; anticipate worsening renal function due to aggressive diuresis; we'll consult nephrology 3. UTI; start patient on IV Rocephin 1 g every 24 hours; order urine culture and adjust antibiotic therapy according 4. Hyperglycemia/ IDDM type II; restart patient on home dose of Lantus 35 units subcu daily at bedtime and monitor Accu-Cheks every before meals and at bedtime with insulin sliding scale 5. Hyperlipidemia; continue with home statin therapy in form of Lipitor 80 mg by mouth daily at bedtime 6. Hypertension; stable on home dose of metoprolol 25 mg twice a day 7. Hypothyroidism; levothyroxin 50 MCG daily DVT prophylaxis; subcu heparin CODE STATUS; full code
[2019-10-08] MEDS: FUROSEMIDE 10 MG/ML 4 ML VIAL IV SCH (18:46)
[2019-10-08] MEDS: PANTOPRAZOLE 40 MG TABLET PO SCH (18:53)
[2019-10-08] MEDS: FERROUS SULFATE 325 MG TAB PO SCH (18:53)
[2019-10-08 20:07] LABS: Glucose,Whole Blood 97 mg/dL (75-99)
[2019-10-08] MEDS: DOCUSATE 100 MG CAP PO SCH (20:30)
[2019-10-08] MEDS: ATORVASTATIN 80 MG TAB PO SCH (20:30)
[2019-10-08] MEDS: INSULIN DETEMIR (LEVEMIR) 100 UNIT/ML SYR SQ SCH (20:31)
[2019-10-08] MEDS ORDERED: lamoTRIgine 100 MG TAB PO SCH (21:00)
[2019-10-09] MEDS: HEPARIN SODIUM,PORCINE 5,000 UNIT/ML 1 ML VIAL SQ SCH ×4 (00:05→22:14)
[2019-10-09] MEDS: FUROSEMIDE 10 MG/ML 4 ML VIAL IV SCH ×3 (05:18→22:13)
[2019-10-09] MEDS: LEVOTHYROXINE 50 MCG TAB PO SCH (05:19)
[2019-10-09] MEDS: PANTOPRAZOLE 40 MG TABLET PO SCH ×2 (05:19→17:22)
[2019-10-09] MEDS: HYDROcodone/APAP 5-325MG 1 EACH TAB PO PRN ×2 (05:19→22:19)
[2019-10-09 06:20] LABS: Glucose,Whole Blood 70 mg/dL (75-99)
[2019-10-09 06:55] LABS: Basophils % (A) 0 %; Eosinophils # (A) 0.1 k/uL (0-0.7); Eosinophils % (A) 1 %; HCT 29.5 % (39.0-53.0); HGB 8.6 gm/dL (13.0-17.5); Hypochromasia Marked; Lymphocytes # (A) 0.3 k/uL (1.0-4.8); Lymphocytes % (A) 2 %; MCH 26.6 pg (25.0-35.0); MCHC 29.2 g/dL (31.0-37.0); MCV 90.9 fL (80.0-100.0); Mean Platelet Volume 7.3; Monocytes # (A) 0.4 k/uL (0-1.0); Monocytes % (A) 3 %; Neutrophils # (A) 12.6 k/uL (1.3-7.7); Neutrophils % (A) 94 %; Platelet Count 521 k/uL (150-450); Poikilocytosis Slight; RBC 3.25 m/uL (4.30-5.90); RDW 14.7 % (11.5-15.5); WBC 13.5 k/uL (3.8-10.6)
[2019-10-09 07:27] LABS: Calcium 8.1 mg/dL (8.4-10.2)
[2019-10-09] MEDS ORDERED: INSULIN ASPART (NovoLOG) 100 UNIT/ML VIAL SQ SCH (07:30)
[2019-10-09] MEDS ORDERED: MAGNESIUM OXIDE 400 MG TAB PO SCH (08:00)
[2019-10-09] MEDS: INSULIN ASPART (NovoLOG) 100 UNIT/ML VIAL SQ SCH ×6 (10:02→20:18)
[2019-10-09] MEDS: DOCUSATE 100 MG CAP PO SCH ×2 (10:03→20:30)
[2019-10-09] MEDS: LORATADINE 10 MG TAB PO SCH (10:03)
[2019-10-09] MEDS: CLOPIDOGREL 75 MG TAB PO SCH (10:03)
[2019-10-09] MEDS: ASPIRIN 81 MG PO SCH (10:03)
[2019-10-09] MEDS: METOPROLOL TARTRATE 25 MG TAB PO SCH ×2 (10:03→20:30)
[2019-10-09] MEDS: POTASSIUM CHLORIDE ER 20 MEQ TAB.ER PO SCH (10:04)
[2019-10-09] MEDS: SERTRALINE 50 MG TAB PO SCH (10:04)
[2019-10-09 11:27] VITALS: BMI 36.8
--- NOTE | 2019-10-09 11:31 | P.NPCON ---
History of Present Illness - Reason for Consult Consult date: 10/09/19 acute renal failure - Chief Complaint Edema - History of Present Illness 59-year-old gentleman coming from [facility] because of the above symptoms. Baseline creatinine is 1.0-1.2 MG per DL suspected underlying diabetic nephropathy. Previous admissions in the past with similar complaints treated with Lasix improved. He takes Lasix in the [facility]. Denies any NSAID use. Recent contrast studies. No nausea vomiting diarrhea. When presented to the hospital serum creatinine was 1.5. He was requested Machado catheter and IV Lasix. Machado was placed urine output is minimal Lasix currently on 40 mg IV twice a day. Blood pressures marginal low systolic 100. Urine analysis Friday brown cast. Review of Systems Constitutional: Reports as per HPI Past Medical History Past Medical History: Heart Failure, Diabetes Mellitus, GERD/Reflux, Hyperlipidemia, Hypertension, Neurologic Disorder, Renal Disease, Thyroid Disorder, Vascular Disorder Additional Past Medical History / Comment(s): IDDM type II, neuropathy L foot, past bilateral diabetic foot ulcers/gangrene/oseomylitis, toe amputations, PVD, Fowler's palsy L side of face, CKD stage III, iron anemia, bilateral leg/pedal edema, muscle weakness, falls, allergic rhinitis, constipation, hypothyroid, past medical record documents duodenal ulcer but pt does not recall this. History of Any Multi-Drug Resistant Organisms: CRE Date of last positivie culture/infection: 07/29/19 MRSA; 03/16/19 MDRO CRE MDRO Source:: Left Heel-MRSA; Toe-MDRO CRE Past Surgical History: Adenoidectomy, AICD, Tonsillectomy Additional Past Surgical History / Comment(s): 07/2019 AICD at [facility], L/R great toe amputations, L 5th toe amputation, L writst laceration repair, colonoscopy with benign polypectomies, EGDs, midlines, Past Anesthesia/Blood Transfusion Reactions: No Reported Reaction Type of Cardiac Device: AICD Device Placement Date:: 07/2019 Smoking Status: Former smoker - Past Family History Father Family Medical History: Diabetes Mellitus Additional Family Medical History / Comment(s): Father had gallbladder disease. He is 77yrs old. Mother Family Medical History: Hyperlipidemia Medications and Allergies Home Medications Medication Instructions Recorded Confirmed Type Atorvastatin [Lipitor] 80 mg PO HS 30 Days #30 tab 01/19/19 10/08/19 Rx Insulin Glargine,Hum.rec.anlog 28 unit SQ DAILY 01/29/19 10/08/19 History [Lantus Solostar] Aspirin 81 mg PO DAILY #30 chew 02/11/19 10/08/19 Rx Potassium Chloride ER [K-Dur 20] 20 meq PO BID #60 tab.er.prt 02/11/19 10/08/19 Rx Furosemide [Lasix] 80 mg PO BID@0800,1600 03/15/19 10/08/19 History ALPRAZolam [Xanax] 0.25 mg PO BID 10/08/19 10/08/19 History Acetaminophen Tab [Tylenol Tab] 650 mg PO Q6H PRN 10/08/19 10/08/19 History Carvedilol [Coreg] 6.25 mg PO BID 10/08/19 10/08/19 History Clopidogrel [Plavix] 75 mg PO DAILY 10/08/19 10/08/19 History Docusate [Colace] 100 mg PO BID 10/08/19 10/08/19 History Ergocalciferol [Vitamin D2] 50,000 unit PO TH 10/08/19 10/08/19 History Ferrous Sulfate [Feosol] 325 mg PO Q48H 10/08/19 10/08/19 History HYDROcodone/APAP 5-325MG [[place] 1 tab PO Q6H PRN 10/08/19 10/08/19 History 5-325] Insulin Lispro [humaLOG Kwikpen] 15 unit SQ AC-TID 10/08/19 10/08/19 History Insulin Lispro [humaLOG Kwikpen] See Protocol SQ ACHS 10/08/19 10/08/19 History Ipratropium-Albuterol Nebulize 3 ml INHALATION RT-Q4H PRN 10/08/19 10/08/19 History [Duoneb 0.5 mg-3 mg/3 ml Soln] Iron Polysaccharide Complex 150 mg PO HS 10/08/19 10/08/19 History [Polysaccharide Iron] Levothyroxine Sodium [Synthroid] 75 mcg PO DAILY 10/08/19 10/08/19 History Loratadine [Claritin] 10 mg PO DAILY 10/08/19 10/08/19 History Magnesium Oxide [Mag-Ox] 400 mg PO BID@0800,1600 10/08/19 10/08/19 History Omeprazole 40 mg PO BID 10/08/19 10/08/19 History Prostat 1 can PO DAILY 10/08/19 10/08/19 History Sertraline [Zoloft] 100 mg PO DAILY 10/08/19 10/08/19 History Allergies Allergy/AdvReac Type Severity Reaction Status Date / Time lamotrigine [From Lamictal] Allergy Unknown Verified 10/08/19 10:10 Physical Exam Vitals: Vital Signs Temp Pulse Pulse Resp BP BP Pulse Ox 10/09/19 04:00 98.0 F 80 19 134/78 91 L 10/08/19 23:28 98.1 F 81 18 101/66 94 L 10/08/19 20:00 98.0 F 78 19 102/71 88 L 10/08/19 17:41 20 10/08/19 16:00 75 20 112/70 100 10/08/19 15:00 20 100 10/08/19 14:00 20 100 10/08/19 13:00 20 100 10/08/19 12:00 72 20 105/72 100 Intake and Output 10/08/19 10/09/19 10/09/19 22:59 06:59 14:59 Intake Total 400 240 Output Total 200 Balance 200 240 Intake: Intake, IV Titration 100 Amount cefTRIAXone 1 gm In 100 Sodium Chloride 0.9% 50 ml @ 100 mls/hr IVPB Q24HR [facility] Rx#:[id number] Oral 300 240 Output: Urine 200 Other: Voiding Method Indwelling Catheter Indwelling Catheter # Voids 0 Weight 116.3 kg No acute distress S1-S2 heard Decreased breath sounds Abdomen distended Machado catheter Edema. Results - Lab Results Most recent lab results Calcium 8.1 mg/dL (8.4-10.2) L 10/09/19 06:09 10/09/19 06:09 10/09/19 06:09 Assessment and Plan Assessment: #1 acute kidney injury suspect hemodynamic ATN and cardiorenal syndrome. #2 chronic kidney disease stage III with a baseline creatinine of 1.0-1.2 MG per DL With underlying diabetic nephropathy. #3 generalized edema #4 hypotension #5 complicated UTI #6 metabolic acidosis Plan: #1 continue Lasix increased to 40 mg IV 3 times a day. #2 strict ins and outs. #3 admitted to drinking for hemodynamic support. #4 labs in the morning. #5. Magnesium and potassium supplements. #6 add sodium bicarbonate for metabolic acidosis.
[2019-10-09 12:02] LABS: Glucose,Whole Blood 153 mg/dL (75-99)
[2019-10-09] MEDS: INSULIN DETEMIR (LEVEMIR) 100 UNIT/ML SYR SQ SCH (12:51)
[2019-10-09] MEDS: MIDODRINE 5 MG TAB PO SCH ×2 (12:51→17:21)
--- NOTE | 2019-10-09 14:54 | P.CRDCN ---
History of Present Illness History of present illness: This is Teresa Pantoja PA-C dictating a consult on this patient The patient was interviewed and examined by me as well as by Dr. Jackman Case discussed with Dr. Jackman and he agrees with the plan of care HPI Patient is a 59-year-old male with a past medical history of chronic diastolic CHF, diabetes, hypertension, dyslipidemia, CKD, who presented with complaints of shortness of breath and worsening edema. He is a somewhat poor historian and resides at [facility]. Most of his history was obtained from the chart. 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 Patient states that he has had worsening shortness of breath exertion and orthopnea. Upon arrival his EKG showed ventricular pacing. Vital signs were stable. Labs were significant for BUN 54, creatinine 1.58, normal troponin, BNP 6250. Apparently he requested Lasix and a Machado catheter. He was started on IV Lasix. Nephrology has evaluated the patient and increased his Lasix. Patient seen and examined resting in bed. States he is still short of breath. Denies chest pain. ROS: Unable to obtain secondary to patient is a poor historian EXAMINATION: Patient is afebrile, pulse in the 50s, respirations in the 20s, blood pressure in the 80s over 50s, oxygen saturation 90% on 2 L nasal cannula Patient seen and examined resting in bed, appears in no acute distress His lungs are diminished bilaterally Heart is regular, no audible murmurs 2+ pitting edema bilaterally, left leg is wrapped in gauze REVIEW OF LABS, ECG & MEDICAL DATA WBC 13.5, hemoglobin 8.6, platelets 521, BUN 66, creatinine 2.19, potassium 5.0, Previous echocardiogram in January 2019 showed EF 50-55%, moderate concentric hypertrophy, IMPRESSION / ASSESSMENT: Symptoms of shortness of breath and edema secondary to acute on chronic CHF exacerbation secondary to diastolic dysfunction AKIL on CKD Hypertension, currently hypotensive Diabetes Dyslipidemia Status post pacemaker PLAN: Agree with increasing Lasix, continue IV diuresis Obtain echocardiogram Monitor BMP Monitor strict I&O and daily weights Past Medical History Past Medical History: Heart Failure, Diabetes Mellitus, GERD/Reflux, Hyperlipi demia, Hypertension, Neurologic Disorder, Renal Disease, Thyroid Disorder, Vascular Disorder Additional Past Medical History / Comment(s): IDDM type II, neuropathy L foot, past bilateral diabetic foot ulcers/gangrene/oseomylitis, toe amputations, PVD, Fowler's palsy L side of face, CKD stage III, iron anemia, bilateral leg/pedal edema, muscle weakness, falls, allergic rhinitis, constipation, hypothyroid, past medical record documents duodenal ulcer but pt does not recall this. History of Any Multi-Drug Resistant Organisms: CRE Date of last positivie culture/infection: 07/29/19 MRSA; 03/16/19 MDRO CRE MDRO Source:: Left Heel-MRSA; Toe-MDRO CRE Past Surgical History: Adenoidectomy, AICD, Tonsillectomy Additional Past Surgical History / Comment(s): 07/2019 AICD at , L/R great toe amputations, L 5th toe amputation, L writst laceration repair, colonoscopy with benign polypectomies, EGDs, midlines, Past Anesthesia/Blood Transfusion Reactions: No Reported Reaction Type of Cardiac Device: AICD Device Placement Date:: 07/2019 Smoking Status: Former smoker - Past Family History Father Family Medical History: Diabetes Mellitus Additional Family Medical History / Comment(s): Father had gallbladder disease. He is 77yrs old. Mother Family Medical History: Hyperlipidemia Medications and Allergies Home Medications Medication Instructions Recorded Confirmed Type Atorvastatin [Lipitor] 80 mg PO HS 30 Days #30 tab 01/19/19 10/08/19 Rx Insulin Glargine,Hum.rec.anlog 28 unit SQ DAILY 01/29/19 10/08/19 History [Lantus Solostar] Aspirin 81 mg PO DAILY #30 chew 02/11/19 10/08/19 Rx Potassium Chloride ER [K-Dur 20] 20 meq PO BID #60 tab.er.prt 02/11/19 10/08/19 Rx Furosemide [Lasix] 80 mg PO BID@0800,1600 03/15/19 10/08/19 History ALPRAZolam [Xanax] 0.25 mg PO BID 10/08/19 10/08/19 History Acetaminophen Tab [Tylenol Tab] 650 mg PO Q6H PRN 10/08/19 10/08/19 History Carvedilol [Coreg] 6.25 mg PO BID 10/08/19 10/08/19 History Clopidogrel [Plavix] 75 mg PO DAILY 10/08/19 10/08/19 History Docusate [Colace] 100 mg PO BID 10/08/19 10/08/19 History Ergocalciferol [Vitamin D2] 50,000 unit PO TH 10/08/19 10/08/19 History Ferrous Sulfate [Feosol] 325 mg PO Q48H 10/08/19 10/08/19 History HYDROcodone/APAP 5-325MG [[place] 1 tab PO Q6H PRN 10/08/19 10/08/19 History 5-325] Insulin Lispro [humaLOG Kwikpen] 15 unit SQ AC-TID 10/08/19 10/08/19 History Insulin Lispro [humaLOG Kwikpen] See Protocol SQ ACHS 10/08/19 10/08/19 History Ipratropium-Albuterol Nebulize 3 ml INHALATION RT-Q4H PRN 10/08/19 10/08/19 History [Duoneb 0.5 mg-3 mg/3 ml Soln] Iron Polysaccharide Complex 150 mg PO HS 10/08/19 10/08/19 History [Polysaccharide Iron] Levothyroxine Sodium [Synthroid] 75 mcg PO DAILY 10/08/19 10/08/19 History Loratadine [Claritin] 10 mg PO DAILY 10/08/19 10/08/19 History Magnesium Oxide [Mag-Ox] 400 mg PO BID@0800,1600 10/08/19 10/08/19 History Omeprazole 40 mg PO BID 10/08/19 10/08/19 History Prostat 1 can PO DAILY 10/08/19 10/08/19 History Sertraline [Zoloft] 100 mg PO DAILY 10/08/19 10/08/19 History Allergies Allergy/AdvReac Type Severity Reaction Status Date / Time lamotrigine [From Lamictal] Allergy Unknown Verified 10/08/19 10:10 Physical Exam Vitals: Vital Signs Temp Pulse Pulse Resp BP BP Pulse Ox 10/09/19 11:50 53 L 18 81/53 92 L 10/09/19 09:05 97.5 F L 53 L 18 83/53 90 L 10/09/19 04:00 98.0 F 80 19 134/78 91 L 10/08/19 23:28 98.1 F 81 18 101/66 94 L 10/08/19 20:00 98.0 F 78 19 102/71 88 L 10/08/19 17:41 20 10/08/19 16:00 75 20 112/70 100 10/08/19 15:00 20 100 Intake and Output 10/08/19 10/09/19 10/09/19 22:59 06:59 14:59 Intake Total 400 480 Output Total 200 Balance 200 480 Intake: Intake, IV Titration 100 Amount cefTRIAXone 1 gm In 100 Sodium Chloride 0.9% 50 ml @ 100 mls/hr IVPB Q24HR [facility] Rx#:[id number] Oral 300 480 Output: Urine 200 Other: Voiding Method Indwelling Catheter Indwelling Catheter Indwelling Catheter # Voids 0 # Bowel Movements 1 Weight 116.3 kg 116.3 kg Results 10/09/19 06:09 10/09/19 06:09 CBC 10/09/19 Range/Units 06:09 WBC 13.5 H (3.8-10.6) k/uL RBC 3.25 L (4.30-5.90) m/uL Hgb 8.6 L (13.0-17.5) gm/dL Hct 29.5 L (39.0-53.0) % Plt Count 521 H (150-450) k/uL Comprehensive Metabolic Panel 10/09/19 Range/Units 06:09 Sodium 136 L (137-145) mmol/L Potassium 5.0 (3.5-5.1) mmol/L Chloride 102 (98-107) mmol/L Carbon Dioxide 21 L (22-30) mmol/L BUN 66 H (9-20) mg/dL Creatinine 2.19 H (0.66-1.25) mg/dL Glucose 44 L* (74-99) mg/dL Calcium 8.1 L (8.4-10.2) mg/dL Current Medications Generic Name Dose Route Start Last Admin Trade Name Freq PRN Reason Stop Dose Admin Acetaminophen 650 mg 10/08/19 18:34 Tylenol Tab PO Q6H PRN Pain Hydrocodone Bitart/Acetaminophen 1 each 10/08/19 18:34 10/09/19 05:19 [place] 5-325 PO 1 each Q6H PRN Administration Moderate Pain Alprazolam 0.25 mg 10/08/19 06:44 10/08/19 18:53 Xanax PO 0.25 mg TID PRN Administration Anxiety Aspirin 81 mg 10/08/19 09:00 10/09/19 10:03 Aspirin PO 81 mg DAILY HELEN Administration Atorvastatin Calcium 80 mg 10/08/19 21:00 10/08/19 20:30 Lipitor PO 80 mg HS [facility] Administration Clopidogrel Bisulfate 75 mg 10/09/19 09:00 10/09/19 10:03 Plavix PO 75 mg DAILY [facility] Administration Docusate Sodium 100 mg 10/08/19 21:00 10/09/19 10:03 Colace PO 100 mg BID [facility] Administration Ergocalciferol 50,000 unit 10/14/19 09:00 Vitamin D2 PO TH [facility] Ferrous Sulfate 325 mg 10/08/19 19:00 10/08/19 18:53 Feosol PO 325 mg Q48H [facility] Administration Furosemide 40 mg 10/09/19 14:00 Lasix IV Q8H [facility] Heparin Sodium (Porcine) 5,000 unit 10/08/19 08:00 10/09/19 10:05 Heparin SQ 5,000 unit Q8HR [facility] Administration Ceftriaxone Sodium 1 gm/ 50 mls @ 100 mls/hr 10/08/19 18:45 10/09/19 10:05 Sodium Chloride IVPB 100 mls/hr Q24HR [facility] Administration Insulin Aspart 0 unit 10/08/19 07:30 10/09/19 12:52 Novolog SQ 2 unit ACHS [facility] Administration Protocol Insulin Aspart 10 unit 10/09/19 12:30 10/09/19 12:52 Novolog SQ 10 unit AC-TID [facility] Administration Insulin Detemir 28 unit 10/08/19 19:00 10/09/19 12:51 Levemir SQ 28 unit DAILY [facility] Administration Lamotrigine 100 mg 10/08/19 21:00 10/08/19 20:30 Lamictal PO Not Given HS [facility] Levothyroxine Sodium 50 mcg 10/08/19 09:00 10/09/19 05:19 Synthroid PO 50 mcg DAILY@0630 [facility] Administration Loratadine 10 mg 10/09/19 09:00 10/09/19 10:03 Claritin PO 10 mg DAILY [facility] Administration Metoprolol Tartrate 25 mg 10/08/19 09:00 10/09/19 10:03 Lopressor PO 25 mg BID [facility] Administration Midodrine 10 mg 10/09/19 12:30 10/09/19 12:51 Proamatine PO 10 mg AC-TID [facility] Administration Pantoprazole Sodium 40 mg 10/08/19 18:45 10/09/19 05:19 Protonix PO 40 mg AC-BID [facility] Administration Sertraline HCl 50 mg 10/08/19 09:00 10/09/19 10:04 Zoloft PO 50 mg DAILY [facility] Administration Sodium Bicarbonate 650 mg 10/09/19 21:00 Sodium Bicarbonate Tab PO BID [facility] Sodium Chloride 10 ml 10/08/19 09:00 10/09/19 10:04 Saline Flush IV 10 ml BID [facility] Administration Temazepam 15 mg 10/08/19 06:44 Restoril PO HS PRN Insomnia Intake and Output 10/08/19 10/09/19 10/09/19 22:59 06:59 14:59 Intake Total 400 480 Output Total 200 Balance 200 480 Intake: Intake, IV Titration 100 Amount cefTRIAXone 1 gm In 100 Sodium Chloride 0.9% 50 ml @ 100 mls/hr IVPB Q24HR [facility] Rx#:[id number] Oral 300 480 Output: Urine 200 Other: Voiding Method Indwelling Catheter Indwelling Catheter Indwelling Catheter # Voids 0 # Bowel Movements 1 Weight 116.3 kg 116.3 kg Patient Weight 10/10/19 06:59 Weight 116.3 kg 10/09/19 06:09 10/09/19 06:09
--- NOTE | 2019-10-09 15:49 | P.PN ---
Subjective Progress Note Date: 10/09/19 Principal diagnosis: Generalized anasarca Acute on chronic diastolic CHF Acute on chronic kidney disease Patient is a 59-year-old male with a past medical history of chronic diastolic CHF, diabetes, hypertension, dyslipidemia, CKD, who presented with complaints of shortness of breath and worsening edema. Patient is admitted with generalized anasarca and acute exacerbation of diastolic CHF 10/09/2019 Patient is seen and evaluated in room at bedside; patient continues to follow asleep mid sentence; in no acute distress Cardiology and nephrology service has evaluated patient and recommending to increase IV diuresis with Lasix up to 40 mg 3 times a day; echocardiogram is ordered and pending; we will continue to monitor strict ANAYA's and daily weights; cardiology is following for worsening renal failure due to ATN and cardiorenal syndrome; sodium bicarbonate is added for metabolic acidosis Patient remains on IV Rocephin for UTI; we see a slight upward trend in WBC count but patient remains afebrile; we will continue with Rocephin and make adj ustments once final culture results are available Objective - Vital Signs Vital signs: Vital Signs Temp 98.0 F 10/09/19 04:00 Pulse 80 10/09/19 04:00 Resp 19 10/09/19 04:00 BP 134/78 10/09/19 04:00 Pulse Ox 91 L 10/09/19 04:00 Intake & Output 10/08/19 10/09/19 10/09/19 18:59 06:59 18:59 Intake Total 400 240 Output Total 200 Balance 200 240 Weight 111.13 kg 116.3 kg Intake: Intake, IV Titration 100 Amount cefTRIAXone 1 gm In 100 Sodium Chloride 0.9% 50 ml @ 100 mls/hr IVPB Q24HR [facility] Rx#:[id number] Oral 300 240 Output: Urine 200 Other: Voiding Method Indwelling Catheter # Voids 0 - Exam - Constitutional General appearance: Present: average body habitus, cooperative, no acute distress - EENT Eyes: Present: anicteric sclerae, EOMI, PERRLA, normal appearance ENT: Present: hearing grossly normal, normal oropharynx Ears: bilateral: normal - Neck Neck: Present: normal ROM. Absent: lymphadenopathy, rigidity, thyromegaly Carotids: negative: bruit present Thyroid: bilateral: normal size, negative: enlarged, nodule - Respiratory Respiratory: bilateral: CTA, negative: rales, rhonchi, wheezing - Cardiovascular Rhythm: regular Heart sounds: normal: S1, S2 Abnormal Heart Sounds: Absent: systolic murmur, diastolic murmur - Gastrointestinal General gastrointestinal: Present: normal bowel sounds, soft. Absent: distended, organomegaly, tenderness - Genitourinary Genitourinary Comment(s): deferred - Integumentary Integumentary: Present: normal turgor. Absent: jaundiced, rash, ulcer - Neurologic Neurologic: Present: CNII-XII intact. Absent: focal deficits - Musculoskeletal Musculoskeletal: Present: gait normal, strength equal bilaterally - Psychiatric Psychiatric: Present: A&O x's 3, appropriate affect, intact judgment & insight - Labs CBC & Chem 7: 10/09/19 06:09 10/09/19 06:09 Labs: Abnormal Lab Results - Last 24 Hours (Table) 10/08/19 10/09/19 10/09/19 Range/Units 12:18 06:09 06:09 WBC 13.5 H (3.8-10.6) k/uL RBC 3.25 L (4.30-5.90) m/uL Hgb 8.6 L (13.0-17.5) gm/dL Hct 29.5 L (39.0-53.0) % MCHC 29.2 L (31.0-37.0) g/dL Plt Count 521 H (150-450) k/uL Neutrophils # 12.6 H (1.3-7.7) k/uL Lymphocytes # 0.3 L (1.0-4.8) k/uL Sodium 136 L (137-145) mmol/L Carbon Dioxide 21 L (22-30) mmol/L BUN 66 H (9-20) mg/dL Creatinine 2.19 H (0.66-1.25) mg/dL Glucose 44 L* (74-99) mg/dL POC Glucose (mg/dL) 142 H (75-99) mg/dL Calcium 8.1 L (8.4-10.2) mg/dL 10/09/19 Range/Units 06:19 WBC (3.8-10.6) k/uL RBC (4.30-5.90) m/uL Hgb (13.0-17.5) gm/dL Hct (39.0-53.0) % MCHC (31.0-37.0) g/dL Plt Count (150-450) k/uL Neutrophils # (1.3-7.7) k/uL Lymphocytes # (1.0-4.8) k/uL Sodium (137-145) mmol/L Carbon Dioxide (22-30) mmol/L BUN (9-20) mg/dL Creatinine (0.66-1.25) mg/dL Glucose (74-99) mg/dL POC Glucose (mg/dL) 70 L (75-99) mg/dL Calcium (8.4-10.2) mg/dL Assessment and Plan Assessment: 1. Acute exacerbation CHF; we will continue with Lasix 40 mg IV every 12 hours; monitor strict ANAYA's, daily weights, renal function and electrolytes; continue with low-salt and fluid restricted diet; order 2-D echo; cardiology to see patient and make further recommendations 2. Acute renal injury; questionable chronic kidney disease; baseline is not clear at this time; anticipate worsening renal function due to aggressive diuresis; we'll consult nephrology 3. UTI; start patient on IV Rocephin 1 g every 24 hours; order urine culture and adjust antibiotic therapy according 4. Hyperglycemia/ IDDM type II; restart patient on home dose of Lantus 35 units subcu daily at bedtime and monitor Accu-Cheks every before meals and at bedtime with insulin sliding scale 5. Hyperlipidemia; continue with home statin therapy in form of Lipitor 80 mg by mouth daily at bedtime 6. Hypertension; stable on home dose of metoprolol 25 mg twice a day 7. Hypothyroidism; levothyroxin 50 MCG daily DVT prophylaxis; subcu heparin CODE STATUS; full code
[2019-10-09 17:00] LABS: Glucose,Whole Blood 89 mg/dL (75-99)
[2019-10-09 20:28] LABS: Glucose,Whole Blood 125 mg/dL (75-99)
[2019-10-09] MEDS: ALPRAZolam 0.25 MG TAB PO PRN (20:30)
[2019-10-09] MEDS: ATORVASTATIN 80 MG TAB PO SCH (20:30)
[2019-10-09] MEDS: SODIUM BICARBONATE TAB 650 MG TAB PO SCH (20:30)
[2019-10-10] MEDS: LEVOTHYROXINE 50 MCG TAB PO SCH (06:19)
[2019-10-10] MEDS: FUROSEMIDE 10 MG/ML 4 ML VIAL IV SCH ×3 (06:19→20:38)
[2019-10-10] MEDS: MIDODRINE 5 MG TAB PO SCH ×3 (06:19→17:24)
[2019-10-10] MEDS: PANTOPRAZOLE 40 MG TABLET PO SCH ×2 (06:19→17:24)
[2019-10-10 06:41] LABS: Basophils % (A) 0 %; Eosinophils # (A) 0.2 k/uL (0-0.7); Eosinophils % (A) 2 %; HCT 29.8 % (39.0-53.0); HGB 8.9 gm/dL (13.0-17.5); Hypochromasia Marked; Lymphocytes # (A) 0.3 k/uL (1.0-4.8); Lymphocytes % (A) 3 %; MCH 26.9 pg (25.0-35.0); MCHC 29.7 g/dL (31.0-37.0); MCV 90.6 fL (80.0-100.0); Mean Platelet Volume 7.3; Monocytes # (A) 0.7 k/uL (0-1.0); Monocytes % (A) 6 %; Neutrophils # (A) 10.3 k/uL (1.3-7.7); Neutrophils % (A) 88 %; Platelet Count 495 k/uL (150-450); Poikilocytosis Slight; RBC 3.29 m/uL (4.30-5.90); RDW 15.4 % (11.5-15.5); WBC 11.7 k/uL (3.8-10.6)
[2019-10-10 07:10] LABS: Calcium 8.1 mg/dL (8.4-10.2); Magnesium 2.3 mg/dL (1.6-2.3); Phosphorus 6.4 mg/dL (2.5-4.5); Potassium 5.3 mmol/L (3.5-5.1)
[2019-10-10 07:13] LABS: Glucose,Whole Blood 38 mg/dL (75-99)
[2019-10-10] MEDS: INSULIN ASPART (NovoLOG) 100 UNIT/ML VIAL SQ SCH ×5 (07:29→20:39)
[2019-10-10 07:30] LABS: Glucose,Whole Blood 51 mg/dL (75-99)
[2019-10-10 07:43] LABS: Glucose,Whole Blood 69 mg/dL (75-99)
[2019-10-10 08:00] LABS: Glucose,Whole Blood 81 mg/dL (75-99)
[2019-10-10] MEDS: CLOPIDOGREL 75 MG TAB PO SCH (09:25)
[2019-10-10] MEDS: HEPARIN SODIUM,PORCINE 5,000 UNIT/ML 1 ML VIAL SQ SCH ×2 (09:25→15:57)
[2019-10-10] MEDS: DOCUSATE 100 MG CAP PO SCH ×2 (09:25→20:38)
[2019-10-10] MEDS: ASPIRIN 81 MG PO SCH (09:25)
[2019-10-10] MEDS: SERTRALINE 50 MG TAB PO SCH (09:26)
[2019-10-10] MEDS: LORATADINE 10 MG TAB PO SCH (09:26)
[2019-10-10] MEDS: METOPROLOL TARTRATE 25 MG TAB PO SCH ×2 (09:26→20:39)
[2019-10-10] MEDS: SODIUM BICARBONATE TAB 650 MG TAB PO SCH ×2 (09:26→20:38)
--- NOTE | 2019-10-10 11:43 | P.PN ---
Subjective Progress Note Date: 10/10/19 Follow-up for acute kidney injury. Decreased urine output of 200 ML's in the last 24 hours. No nausea vomiting diarrhea. Family at bedside. Objective - Vital Signs Vital signs: Vital Signs Temp 97.7 F 10/10/19 07:55 Pulse 71 10/10/19 07:55 Resp 18 10/10/19 07:55 BP 85/51 10/10/19 07:55 Pulse Ox 95 10/10/19 07:55 Intake & Output 10/09/19 10/10/19 10/10/19 18:59 06:59 18:59 Intake Total 720 720 Output Total 100 50 Balance 620 -50 720 Weight 116.3 kg 116.3 kg Intake: Oral 720 720 Output: Urine 100 50 Other: Voiding Method Indwelling Catheter Indwelling Catheter Indwelling Catheter # Bowel Movements 1 1 - Exam No acute distress S1-S2 heard Decreased breath sounds Anasarca - Labs CBC & Chem 7: 10/10/19 06:13 10/10/19 06:13 Labs: Abnormal Lab Results - Last 24 Hours (Table) 10/09/19 10/09/19 10/10/19 Range/Units 12:00 20:10 06:13 WBC 11.7 H (3.8-10.6) k/uL RBC 3.29 L (4.30-5.90) m/uL Hgb 8.9 L (13.0-17.5) gm/dL Hct 29.8 L (39.0-53.0) % MCHC 29.7 L (31.0-37.0) g/dL Plt Count 495 H (150-450) k/uL Neutrophils # 10.3 H (1.3-7.7) k/uL Lymphocytes # 0.3 L (1.0-4.8) k/uL Sodium (137-145) mmol/L Potassium (3.5-5.1) mmol/L Carbon Dioxide (22-30) mmol/L BUN (9-20) mg/dL Creatinine (0.66-1.25) mg/dL Glucose (74-99) mg/dL POC Glucose (mg/dL) 153 H 125 H (75-99) mg/dL Calcium (8.4-10.2) mg/dL Phosphorus (2.5-4.5) mg/dL 10/10/19 10/10/19 10/10/19 Range/Units 06:13 07:07 07:22 WBC (3.8-10.6) k/uL RBC (4.30-5.90) m/uL Hgb (13.0-17.5) gm/dL Hct (39.0-53.0) % MCHC (31.0-37.0) g/dL Plt Count (150-450) k/uL Neutrophils # (1.3-7.7) k/uL Lymphocytes # (1.0-4.8) k/uL Sodium 133 L (137-145) mmol/L Potassium 5.3 H (3.5-5.1) mmol/L Carbon Dioxide 19 L (22-30) mmol/L BUN 83 H (9-20) mg/dL Creatinine 3.00 H (0.66-1.25) mg/dL Glucose 24 L* (74-99) mg/dL POC Glucose (mg/dL) 38 L 51 L (75-99) mg/dL Calcium 8.1 L (8.4-10.2) mg/dL Phosphorus 6.4 H (2.5-4.5) mg/dL 10/10/19 Range/Units 07:38 WBC (3.8-10.6) k/uL RBC (4.30-5.90) m/uL Hgb (13.0-17.5) gm/dL Hct (39.0-53.0) % MCHC (31.0-37.0) g/dL Plt Count (150-450) k/uL Neutrophils # (1.3-7.7) k/uL Lymphocytes # (1.0-4.8) k/uL Sodium (137-145) mmol/L Potassium (3.5-5.1) mmol/L Carbon Dioxide (22-30) mmol/L BUN (9-20) mg/dL Creatinine (0.66-1.25) mg/dL Glucose (74-99) mg/dL POC Glucose (mg/dL) 69 L (75-99) mg/dL Calcium (8.4-10.2) mg/dL Phosphorus (2.5-4.5) mg/dL Assessment and Plan Assessment: #1 acute kidney injury suspect hemodynamic ATN and cardiorenal syndrome. #2 chronic kidney disease stage III with a baseline creatinine of 1.0-1.2 MG per DL With underlying diabetic nephropathy. #3 generalized edema #4 hypotension #5 complicated UTI #6 metabolic acidosis Plan: #1 continue Lasix increased to 40 mg IV 3 times a day. Add dopamine to increase the cardiac output and hemodynamics. #2 strict ins and outs. #3 continue midodrine for hemodynamic support. #4 continue with sodium bicarbonate for metabolic acidosis. #5 labs in the morning. No acute indication for SPOUT POSITIONER at this time
[2019-10-10 11:58] LABS: Glucose,Whole Blood 129 mg/dL (75-99)
[2019-10-10] MEDS: DEXTROSE/WATER 1 250ML.BAG with DOPamine DRIP 800 MG IV SCH (12:14)
[2019-10-10] MEDS: INSULIN DETEMIR (LEVEMIR) 100 UNIT/ML SYR SQ SCH (12:37)
--- NOTE | 2019-10-10 13:59 | ECHOF ---
Referral Reason:sob MEASUREMENTS -------- HEIGHT: 177.8 cm WEIGHT: 116.1 kg BP: 143/78 IVSd: 1.6 cm (0.6 - 1.1) LVIDd: 4.5 cm (3.9 - 5.3) LVPWd: 1.8 cm (0.6 - 1.1) IVSs: 2.0 cm LVIDs: 3.2 cm LVPWs: 1.9 cm RVIDd: 2.8 cm (< 3.3) LAESV Index (A-L): 27.67 ml/m Ao Diam: 3.8 cm (2.0 - 3.7) LA Diam: 4.5 cm (2.7 - 3.8) AV Cusp: 2.7 cm (1.5 - 2.6) EPSS: 0.8 cm MV E Tre: 1.13 m/s MV DecT: 199 ms MV A Tre: 0.60 m/s MV E/A Ratio: 1.86 RAP: 5.00 mmHg RVSP: 29.39 mmHg MV EF SLOPE: 84.63 mm/s (70 - 150) MV EXCURSION: 21.87 mm (> 18.000) FINDINGS -------- Sinus rhythm. This was a technically difficult study with suboptimal views. The left ventricular size is normal. There is moderate concentric left ventricular hypertrophy. O verall left ventricular systolic function is mild-moderately impaired with, an EF between 40 - 45 %. Mitral Doppler inflow pattern suggests diastolic filling abnormality 21.16. Apical anterior LV wa ll motion is hypokinetic. Apical lateral LV wall motion is hypokinetic. Apical inferior LV wall motion is hypokinetic. Apical septum LV wall motion is hypokinetic. The right ventricle is mildly enlarged. Normal LA size by volume 22+/-6 ml/m2. The right atrium was not well visualized. Electronic pacemaker lead seen in the right atrial cavity . xx ml of Lumason was utilized for enhancement of images. Interatrial and interventricular septum intact. The aortic valve was not well visualized. There is no evidence of aortic regurgitation. There is no evidence of aortic stenosis. The mitral valve was not well visualized. No mitral regurgitation. Mild tricuspid regurgitation present. There is no evidence of pulmonary hypertension. The right v entricular systolic pressure, as measured by Doppler, is 29.39mmHg. The pulmonic valve was not well visualized. There is no pulmonic regurgitation present. The aortic root size is normal. IVC Not well visulized. There is no pericardial effusion. CONCLUSIONS -------- 1. Sinus rhythm. 2. This was a technically difficult study with suboptimal views. 3. The left ventricular size is normal. 4. There is moderate concentric left ventricular hypertrophy. 5. Overall left ventricular systolic function is mild-moderately impaired with, an EF between 40 - 45 %. 6. Mitral Doppler inflow pattern suggest diastolic filling abnormality 21.16. 7. Apical anterior LV wall motion is hypokinetic. 8. Apical lateral LV wall motion is hypokinetic. 9. Apical inferior LV wall motion is hypokinetic. 10. Apical septum LV wall motion is hypokinetic. 11. The right ventricle is mildly enlarged. 12. Normal LA size by volume 22+/-6 ml/m2. 13. The right atrium was not well visualized. 14. Electronic pacemaker lead seen in the right atrial cavity. 15. xx ml of Lumason was utilized for enhancement of images. 16. Interatrial and interventricular septum intact. 17. The aortic valve was not well visualized. 18. There is no evidence of aortic regurgitation. 19. There is no evidence of aortic stenosis. 20. The mitral valve was not well visualized. 21. No mitral regurgitation. 22. Mild tricuspid regurgitation present. 23. There is no evidence of pulmonary hypertension. 24. The right ventricular systolic pressure, as measured by Doppler, is 29.39mmHg. 25. The pulmonic valve was not well visualized. 26. There is no pulmonic regurgitation present. 27. The aortic root size is normal. 28. IVC Not well visulized. 29. There is no pericardial effusion. MEDICINE ASSISTANT: Chata Brumfield RD
--- NOTE | 2019-10-10 14:35 | P.PN ---
Subjective Progress Note Date: 10/10/19 Principal diagnosis: Generalized anasarca Acute on chronic diastolic CHF Acute on chronic kidney disease Patient is a 59-year-old male with a past medical history of chronic diastolic CHF, diabetes, hypertension, dyslipidemia, CKD, who presented with complaints of shortness of breath and worsening edema. Patient is admitted with generalized anasarca and acute exacerbation of diastolic CHF 10/09/2019 Patient is seen and evaluated in room at bedside; patient continues to follow asleep mid sentence; in no acute distress Cardiology and nephrology service has evaluated patient and recommending to increase IV diuresis with Lasix up to 40 mg 3 times a day; echocardiogram is ordered and pending; we will continue to monitor strict ANAYA's and daily weights; cardiology is following for worsening renal failure due to ATN and cardiorenal syndrome; sodium bicarbonate is added for metabolic acidosis Patient remains on IV Rocephin for UTI; we see a slight upward trend in WBC count but patient remains afebrile; we will continue with Rocephin and make adj ustments once final culture results are available 10/10/2019 Patient is seen and evaluated in room with his father at bedside; patient does not have any specific complaints; did have another episode of hypoglycemia; Lantus has been held since morning; I will discontinue pre-meal short-acting insulin, continue with Lantus as ordered and monitor Accu-Cheks with insulin sliding scale if needed Creatinine continues to trend up and is 3.2 this morning from 2.1 yesterday; Las ix was increased to 40 mg IV 3 times a day; nephrology and cardiology service is following; nephrology recommending to start patient on small dose of dopamine to increase cardiac output and hemodynamics and continue to monitor strict I's and O's; patient remains on sodium bicarbonate for metabolic acidosis echo is still pending; slight improvement in white blood count down to 11.7 from 15 yesterday; we will continue to monitor BMP and CBC Objective - Vital Signs Vital signs: Vital Signs Temp 97.9 F 10/10/19 04:00 Pulse 70 10/10/19 04:00 Resp 19 10/10/19 04:00 BP 92/55 10/10/19 05:48 Pulse Ox 94 L 10/10/19 04:00 Intake & Output 01/25/20 01/26/20 01/26/20 18:59 06:59 18:59 Intake Total 720 Output Total 100 50 Balance 620 -50 Weight 116.3 kg 116.3 kg Intake: Oral 720 Output: Urine 100 50 Other: Voiding Method Indwelling Catheter Indwelling Catheter # Bowel Movements 1 1 - Exam - Constitutional General appearance: Present: average body habitus, cooperative, no acute distress - EENT Eyes: Present: anicteric sclerae, EOMI, PERRLA, normal appearance ENT: Present: hearing grossly normal, normal oropharynx Ears: bilateral: normal - Neck Neck: Present: normal ROM. Absent: lymphadenopathy, rigidity, thyromegaly Carotids: negative: bruit present Thyroid: bilateral: normal size, negative: enlarged, nodule - Respiratory Respiratory: bilateral: CTA, negative: rales, rhonchi, wheezing - Cardiovascular Rhythm: regular Heart sounds: normal: S1, S2 Abnormal Heart Sounds: Absent: systolic murmur, diastolic murmur - Gastrointestinal General gastrointestinal: Present: normal bowel sounds, soft. Absent: distended, organomegaly, tenderness - Genitourinary Genitourinary Comment(s): deferred - Integumentary Integumentary: Present: normal turgor. Absent: jaundiced, rash, ulcer - Neurologic Neurologic: Present: CNII-XII intact. Absent: focal deficits - Musculoskeletal Musculoskeletal: Present: gait normal, strength equal bilaterally - Psychiatric Psychiatric: Present: A&O x's 3, appropriate affect, intact judgment & insight - Labs CBC & Chem 7: 10/10/19 06:13 10/10/19 06:13 Labs: Abnormal Lab Results - Last 24 Hours (Table) 10/09/19 10/09/19 10/10/19 Range/Units 12:00 20:10 06:13 WBC 11.7 H (3.8-10.6) k/uL RBC 3.29 L (4.30-5.90) m/uL Hgb 8.9 L (13.0-17.5) gm/dL Hct 29.8 L (39.0-53.0) % MCHC 29.7 L (31.0-37.0) g/dL Plt Count 495 H (150-450) k/uL Neutrophils # 10.3 H (1.3-7.7) k/uL Lymphocytes # 0.3 L (1.0-4.8) k/uL Sodium (137-145) mmol/L Potassium (3.5-5.1) mmol/L Carbon Dioxide (22-30) mmol/L BUN (9-20) mg/dL Creatinine (0.66-1.25) mg/dL Glucose (74-99) mg/dL POC Glucose (mg/dL) 153 H 125 H (75-99) mg/dL Calcium (8.4-10.2) mg/dL Phosphorus (2.5-4.5) mg/dL 10/10/19 10/10/19 10/10/19 Range/Units 06:13 07:07 07:22 WBC (3.8-10.6) k/uL RBC (4.30-5.90) m/uL Hgb (13.0-17.5) gm/dL Hct (39.0-53.0) % MCHC (31.0-37.0) g/dL Plt Count (150-450) k/uL Neutrophils # (1.3-7.7) k/uL Lymphocytes # (1.0-4.8) k/uL Sodium 133 L (137-145) mmol/L Potassium 5.3 H (3.5-5.1) mmol/L Carbon Dioxide 19 L (22-30) mmol/L BUN 83 H (9-20) mg/dL Creatinine 3.00 H (0.66-1.25) mg/dL Glucose 24 L* (74-99) mg/dL POC Glucose (mg/dL) 38 L 51 L (75-99) mg/dL Calcium 8.1 L (8.4-10.2) mg/dL Phosphorus 6.4 H (2.5-4.5) mg/dL 10/10/19 Range/Units 07:38 WBC (3.8-10.6) k/uL RBC (4.30-5.90) m/uL Hgb (13.0-17.5) gm/dL Hct (39.0-53.0) % MCHC (31.0-37.0) g/dL Plt Count (150-450) k/uL Neutrophils # (1.3-7.7) k/uL Lymphocytes # (1.0-4.8) k/uL Sodium (137-145) mmol/L Potassium (3.5-5.1) mmol/L Carbon Dioxide (22-30) mmol/L BUN (9-20) mg/dL Creatinine (0.66-1.25) mg/dL Glucose (74-99) mg/dL POC Glucose (mg/dL) 69 L (75-99) mg/dL Calcium (8.4-10.2) mg/dL Phosphorus (2.5-4.5) mg/dL Assessment and Plan Assessment: 1. Acute exacerbation CHF; we will continue with Lasix 40 mg IV every 12 hours; monitor strict ANAYA's, daily weights, renal function and electrolytes; continue with low-salt and fluid restricted diet; order 2-D echo; cardiology to see patient and make further recommendations 2. Acute renal injury; questionable chronic kidney disease; baseline is not clear at this time; anticipate worsening renal function due to aggressive diuresis; we'll consult nephrology 3. UTI; start patient on IV Rocephin 1 g every 24 hours; order urine culture and adjust antibiotic therapy according 4. Hyperglycemia/ IDDM type II; restart patient on home dose of Lantus 35 units subcu daily at bedtime and monitor Accu-Cheks every before meals and at bedtime with insulin sliding scale 5. Hyperlipidemia; continue with home statin therapy in form of Lipitor 80 mg by mouth daily at bedtime 6. Hypertension; stable on home dose of metoprolol 25 mg twice a day 7. Hypothyroidism; levothyroxin 50 MCG daily DVT prophylaxis; subcu heparin CODE STATUS; full code Time with Patient: Greater than 30
--- NOTE | 2019-10-10 15:20 | P.PN ---
Subjective This is Teresa Pantoja PA-C dictating a progress note on this patient The patient was interviewed and examined by me as well as by Dr. Jackman Case discussed with Dr. Jackman and he agrees with the plan of care HPI/interval history Patient is a 59-year-old male with a past medical history of chronic diastolic CHF, diabetes, hypertension, dyslipidemia, CKD, who presented with complaints of shortness of breath and worsening edema. He was started on IV Lasix without much urine output. Nephrology is following. They have ordered a dopamine drip increaed his lasix. Patient seen and examined lying in bed. Very lethargic, falling asleep during exam. Denies any chest pain. EXAMINATION Patient is afebrile, pulse in the 70s, respirations 18, blood pressure 85/51, oxygen saturation 95% on 3 L nasal cannula Patient seen and examined resting in bed, lethargic Breath sounds diminished bilaterally Heart is regular, no audible murmurs Remains diffusely edematous Ankles are wrapped in gauze REVIEW OF LABS, ECG WBC 11.7, hemoglobin 8.9, platelets 495, potassium 5.3, BUN 83, creatinine 3, Recent echocardiogram shows moderate concentric LVH, EF 40-45%, anterior LV wall hypokinesis contour, apical lateral wall hypokinesis, apical inferior wall hypokinesis and apical septal hypokinesis IMPRESSION / ASSESSMENT: Symptoms of shortness of breath and edema secondary to acute on chronic CHF exacerbation secondary to diastolic dysfunction Cardiomyopathy, recent echo showing EF 40-45% which is reduced compared to echocardiogram done in January showing EF 40-45% AKIL on CKD, BUN and creatinine trending Hypertension, currently hypotensive Diabetes Dyslipidemia Status post pacemaker PLAN: Agree with increasing the Lasix He has been started on a dopamine drip by nephrology Continue metoprolol, cannot further maximize cardiomyopathy medications due to his hypotension and AKIL Further workup and management of cardiomyopathy once his kidney function improves Objective - Vital Signs Vital signs: Vital Signs Temp 97.7 F 10/10/19 07:55 Pulse 71 10/10/19 07:55 Resp 18 10/10/19 07:55 BP 85/51 10/10/19 07:55 Pulse Ox 95 10/10/19 07:55 Intake & Output 10/09/19 10/10/19 10/10/19 18:59 06:59 18:59 Intake Total 720 720 Output Total 100 50 Balance 620 -50 720 Weight 116.3 kg 116.3 kg Intake: Oral 720 720 Output: Urine 100 50 Other: Voiding Method Indwelling Catheter Indwelling Catheter Indwelling Catheter # Bowel Movements 1 1 - Labs CBC & Chem 7: 10/10/19 06:13 10/10/19 06:13 Labs: Abnormal Lab Results - Last 24 Hours (Table) 10/09/19 10/10/19 10/10/19 Range/Units 20:10 06:13 06:13 WBC 11.7 H (3.8-10.6) k/uL RBC 3.29 L (4.30-5.90) m/uL Hgb 8.9 L (13.0-17.5) gm/dL Hct 29.8 L (39.0-53.0) % MCHC 29.7 L (31.0-37.0) g/dL Plt Count 495 H (150-450) k/uL Neutrophils # 10.3 H (1.3-7.7) k/uL Lymphocytes # 0.3 L (1.0-4.8) k/uL Sodium 133 L (137-145) mmol/L Potassium 5.3 H (3.5-5.1) mmol/L Carbon Dioxide 19 L (22-30) mmol/L BUN 83 H (9-20) mg/dL Creatinine 3.00 H (0.66-1.25) mg/dL Glucose 24 L* (74-99) mg/dL POC Glucose (mg/dL) 125 H (75-99) mg/dL Calcium 8.1 L (8.4-10.2) mg/dL Phosphorus 6.4 H (2.5-4.5) mg/dL 10/10/19 10/10/19 10/10/19 Range/Units 07:07 07:22 07:38 WBC (3.8-10.6) k/uL RBC (4.30-5.90) m/uL Hgb (13.0-17.5) gm/dL Hct (39.0-53.0) % MCHC (31.0-37.0) g/dL Plt Count (150-450) k/uL Neutrophils # (1.3-7.7) k/uL Lymphocytes # (1.0-4.8) k/uL Sodium (137-145) mmol/L Potassium (3.5-5.1) mmol/L Carbon Dioxide (22-30) mmol/L BUN (9-20) mg/dL Creatinine (0.66-1.25) mg/dL Glucose (74-99) mg/dL POC Glucose (mg/dL) 38 L 51 L 69 L (75-99) mg/dL Calcium (8.4-10.2) mg/dL Phosphorus (2.5-4.5) mg/dL 10/10/19 Range/Units 11:56 WBC (3.8-10.6) k/uL RBC (4.30-5.90) m/uL Hgb (13.0-17.5) gm/dL Hct (39.0-53.0) % MCHC (31.0-37.0) g/dL Plt Count (150-450) k/uL Neutrophils # (1.3-7.7) k/uL Lymphocytes # (1.0-4.8) k/uL Sodium (137-145) mmol/L Potassium (3.5-5.1) mmol/L Carbon Dioxide (22-30) mmol/L BUN (9-20) mg/dL Creatinine (0.66-1.25) mg/dL Glucose (74-99) mg/dL POC Glucose (mg/dL) 129 H (75-99) mg/dL Calcium (8.4-10.2) mg/dL Phosphorus (2.5-4.5) mg/dL
[2019-10-10 16:12] LABS: Glucose,Whole Blood 118 mg/dL (75-99)
[2019-10-10 17:06] LABS: Glucose,Whole Blood 113 mg/dL (75-99)
[2019-10-10] MEDS: FERROUS SULFATE 325 MG TAB PO SCH (17:24)
[2019-10-10 19:28] LABS: ABG Base Excess -4.8 mmol/L; ABG HCO3 21 mmol/L (21-25); ABG Oxygen Saturation 88.6 % (94-97); ABG PCO2 40 mmHg (35-45); ABG PH 7.33 (7.35-7.45); ABG PO2 61 mmHg (83-108); ABG TCO2 22 mmol/L (19-24); Allen Test Performed? Yes
[2019-10-10 20:12] LABS: Glucose,Whole Blood 114 mg/dL (75-99)
[2019-10-10] MEDS: ATORVASTATIN 80 MG TAB PO SCH (20:38)
--- NOTE | 2019-10-10 21:48 | CT ---
EXAMINATION TYPE: CT brain wo con DATE OF EXAM: 10/10/2019 COMPARISON: 10/06/2019 HISTORY: Lethargy. CT DLP: 1135.4 mGycm Automated exposure control for dose reduction was used. There is cerebral cortical atrophy. There is no mass effect nor midline shift. There is no sign of in tracranial hemorrhage. The calvarium is intact. There is no evidence of cerebral edema. IMPRESSION: Cerebral atrophy. No acute intracranial abnormality. No change.
[2019-10-11] MEDS: HEPARIN SODIUM,PORCINE 5,000 UNIT/ML 1 ML VIAL SQ SCH ×3 (00:12→16:13)
[2019-10-11] MEDS: HYDROcodone/APAP 5-325MG 1 EACH TAB PO PRN (02:31)
[2019-10-11 06:28] LABS: Glucose,Whole Blood 163 mg/dL (75-99)
[2019-10-11 07:01] LABS: Basophils % (A) 0 %; Eosinophils # (A) 0.4 k/uL (0-0.7); Eosinophils % (A) 3 %; HGB 8.4 gm/dL (13.0-17.5); Hypochromasia Marked; Lymphocytes # (A) 0.4 k/uL (1.0-4.8); Lymphocytes % (A) 3 %; MCH 26.3 pg (25.0-35.0); Mean Platelet Volume 7.4; Monocytes # (A) 0.6 k/uL (0-1.0); Monocytes % (A) 5 %; Neutrophils # (A) 10.8 k/uL (1.3-7.7); Neutrophils % (A) 87 %; Platelet Count 474 k/uL (150-450); Poikilocytosis Slight; RBC 3.19 m/uL (4.30-5.90); RDW 15.3 % (11.5-15.5); WBC 12.4 k/uL (3.8-10.6)
[2019-10-11] MEDS: MIDODRINE 5 MG TAB PO SCH ×3 (07:09→18:32)
[2019-10-11] MEDS: LEVOTHYROXINE 50 MCG TAB PO SCH (07:10)
[2019-10-11] MEDS: PANTOPRAZOLE 40 MG TABLET PO SCH (07:10)
[2019-10-11] MEDS: FUROSEMIDE 10 MG/ML 4 ML VIAL IV SCH ×2 (07:10→16:04)
[2019-10-11] MEDS: INSULIN ASPART (NovoLOG) 100 UNIT/ML VIAL SQ SCH ×4 (07:10→21:18)
[2019-10-11 07:23] LABS: Calcium 8.1 mg/dL (8.4-10.2)
[2019-10-11 08:13] LABS: Potassium 6.4 mmol/L (3.5-5.1)
[2019-10-11 08:55] LABS: Glucose,Whole Blood 172 mg/dL (75-99)
[2019-10-11] MEDS ORDERED: INSULIN REGULAR 100 UNIT/ML VIAL IV ONE ×2 (09:01→18:58)
[2019-10-11] MEDS ORDERED: FUROSEMIDE 10 MG/ML 10 ML VIAL IV STA (09:01)
[2019-10-11] MEDS: METOPROLOL TARTRATE 25 MG TAB PO SCH ×2 (09:11→21:21)
[2019-10-11] MEDS: ASPIRIN 81 MG PO SCH (09:11)
[2019-10-11] MEDS: SODIUM BICARBONATE TAB 650 MG TAB PO SCH ×2 (09:11→20:31)
[2019-10-11] MEDS: DOCUSATE 100 MG CAP PO SCH ×2 (09:11→20:31)
[2019-10-11] MEDS: SERTRALINE 50 MG TAB PO SCH (09:11)
[2019-10-11] MEDS: CLOPIDOGREL 75 MG TAB PO SCH (09:11)
[2019-10-11] MEDS: LORATADINE 10 MG TAB PO SCH (09:11)
[2019-10-11] MEDS: DEXTROSE/WATER 1 250ML.BAG with DOPamine DRIP 800 MG IV SCH (09:13)
[2019-10-11] MEDS: INSULIN DETEMIR (LEVEMIR) 100 UNIT/ML SYR SQ SCH (09:59)
[2019-10-11 10:39] LABS: Glucose,Whole Blood 182 mg/dL (75-99)
[2019-10-11 12:24] LABS: Glucose,Whole Blood 153 mg/dL (75-99)
[2019-10-11] MEDS ORDERED: ONDANSETRON 4 MG/2 ML VIAL IVP PRN (12:26)
--- NOTE | 2019-10-11 12:36 | P.PN ---
Subjective Progress Note Date: 10/11/19 This is a 59-year-old gentleman with past medical history for chronic diastolic congestive heart failure, diabetes, hypertension, hyperlipidemia, chronic kidney disease, who presented to the hospital with symptoms of shortness of breath and worsening edema. Patient is currently on IV Lasix. Time of my examination this morning, he states that he just does not feel well, he complains of feeling extremely nauseated and having episodes of vomiting. Patient is also requesting a transfer to [facility]. Blood pressure this morning 94/54 with a heart rate in the 80s, 98% on 4 L of oxygen. White blood cell count 12.4, hemoglobin 8.4, platelet count 474. Sodium 133, potassium 6.4, BUN 102, creatinine 3.7. Calcium 8.1. Objective - Vital Signs Vital signs: Vital Signs Temp 98.4 F 10/11/19 08:00 Pulse 79 10/11/19 08:00 Resp 20 10/11/19 08:00 BP 87/53 10/11/19 08:00 Pulse Ox 97 10/11/19 08:00 Intake & Output 10/10/19 10/11/19 10/11/19 18:59 06:59 18:59 Intake Total 720 Output Total 50 200 Balance 670 -200 Weight 127 kg Intake: Oral 720 Output: Urine 50 200 Other: Voiding Method Indwelling Catheter Indwelling Catheter Indwelling Catheter # Bowel Movements 0 - Exam PHYSICAL EXAMINATION: GENERAL: 59-year-old gentleman in no acute distress at the time of my examination HEENT: Head is atraumatic, normocephalic. Pupils equal, round. Sclera anicteric. Conjunctiva are clear. Mucous membranes of the mouth are moist. Neck is supple. There is elevated jugular venous pressure. No carotid bruit is heard. HEART EXAMINATION: Heart S1, S2 normal. No murmur or gallop heard. CHEST EXAMINATION: Lungs reveal scattered wheezing with diminished air entry to the bases bilaterally ABDOMEN: Soft, nontender. Bowel sounds are heard. No organomegaly noted. EXTREMITIES: 2+ peripheral pulses with evidence of significant bilateral peripheral edema and no calf tenderness noted. Dressings in place to both bilateral lower extremity NEUROLOGIC patient is awake, alert and oriented 1 . . - Labs CBC & Chem 7: 10/11/19 06:24 10/11/19 06:24 Labs: Abnormal Lab Results - Last 24 Hours (Table) 10/10/19 10/10/19 10/10/19 Range/Units 16:10 17:00 19:23 WBC (3.8-10.6) k/uL RBC (4.30-5.90) m/uL Hgb (13.0-17.5) gm/dL Hct (39.0-53.0) % MCHC (31.0-37.0) g/dL Plt Count (150-450) k/uL Neutrophils # (1.3-7.7) k/uL Lymphocytes # (1.0-4.8) k/uL ABG pH 7.33 L (7.35-7.45) ABG pO2 61 L (83-108) mmHg ABG O2 Saturation 88.6 L (94-97) % Sodium (137-145) mmol/L Potassium (3.5-5.1) mmol/L Carbon Dioxide (22-30) mmol/L BUN (9-20) mg/dL Creatinine (0.66-1.25) mg/dL Glucose (74-99) mg/dL POC Glucose (mg/dL) 118 H 113 H (75-99) mg/dL Calcium (8.4-10.2) mg/dL 10/10/19 10/11/19 10/11/19 Range/Units 20:10 06:24 06:24 WBC 12.4 H (3.8-10.6) k/uL RBC 3.19 L (4.30-5.90) m/uL Hgb 8.4 L (13.0-17.5) gm/dL Hct 29.0 L (39.0-53.0) % MCHC 29.0 L (31.0-37.0) g/dL Plt Count 474 H (150-450) k/uL Neutrophils # 10.8 H (1.3-7.7) k/uL Lymphocytes # 0.4 L (1.0-4.8) k/uL ABG pH (7.35-7.45) ABG pO2 (83-108) mmHg ABG O2 Saturation (94-97) % Sodium 133 L (137-145) mmol/L Potassium 6.4 H* (3.5-5.1) mmol/L Carbon Dioxide 21 L (22-30) mmol/L BUN 102 H* (9-20) mg/dL Creatinine 3.70 H (0.66-1.25) mg/dL Glucose 153 H (74-99) mg/dL POC Glucose (mg/dL) 114 H (75-99) mg/dL Calcium 8.1 L (8.4-10.2) mg/dL 10/11/19 10/11/19 10/11/19 Range/Units 06:25 08:54 10:35 WBC (3.8-10.6) k/uL RBC (4.30-5.90) m/uL Hgb (13.0-17.5) gm/dL Hct (39.0-53.0) % MCHC (31.0-37.0) g/dL Plt Count (150-450) k/uL Neutrophils # (1.3-7.7) k/uL Lymphocytes # (1.0-4.8) k/uL ABG pH (7.35-7.45) ABG pO2 (83-108) mmHg ABG O2 Saturation (94-97) % Sodium (137-145) mmol/L Potassium (3.5-5.1) mmol/L Carbon Dioxide (22-30) mmol/L BUN (9-20) mg/dL Creatinine (0.66-1.25) mg/dL Glucose (74-99) mg/dL POC Glucose (mg/dL) 163 H 172 H 182 H (75-99) mg/dL Calcium (8.4-10.2) mg/dL 10/11/19 Range/Units 12:22 WBC (3.8-10.6) k/uL RBC (4.30-5.90) m/uL Hgb (13.0-17.5) gm/dL Hct (39.0-53.0) % MCHC (31.0-37.0) g/dL Plt Count (150-450) k/uL Neutrophils # (1.3-7.7) k/uL Lymphocytes # (1.0-4.8) k/uL ABG pH (7.35-7.45) ABG pO2 (83-108) mmHg ABG O2 Saturation (94-97) % Sodium (137-145) mmol/L Potassium (3.5-5.1) mmol/L Carbon Dioxide (22-30) mmol/L BUN (9-20) mg/dL Creatinine (0.66-1.25) mg/dL Glucose (74-99) mg/dL POC Glucose (mg/dL) 153 H (75-99) mg/dL Calcium (8.4-10.2) mg/dL Assessment and Plan Plan: IMPRESSION / ASSESSMENT: #1 Symptoms of shortness of breath and edema secondary to acute on chronic CHF exacerbation secondary to diastolic dysfunction #2 nonischemic Cardiomyopathy, recent echo showing EF 40-45% which is reduced compared to echocardiogram done in January showing EF 40-45% #3 AKIL on CKD, #4 Hypertension, currently hypotensive #Diabetes #6 Dyslipidemia #7 Status post pacemaker Plan We will recommend to continue current medications. Patient and the mom are requesting a transfer to [place]. We will continue to follow with the patient is here. DNP note has been reviewed, I agree with a documented findings and plan of care. Patient was seen and examined.
[2019-10-11] MEDS: PANTOPRAZOLE 40 MG/10 ML VIAL IVP SCH ×2 (12:41→20:32)
[2019-10-11] MEDS ORDERED: SODIUM CHLORIDE 0.9% 500 ML 500 ML IV ONE (14:23)
--- NOTE | 2019-10-11 14:59 | XR ---
EXAMINATION TYPE: XR chest 1V portable DATE OF EXAM: 10/11/2019 COMPARISON: 10/06/2019 HISTORY: Fluid overload TECHNIQUE: Single frontal view of the chest is obtained. FINDINGS: Moderate right pleural effusion is seen layering. Associated right-sided airspace disease. Left lung is well aerated. Multilead left-sided cardiac device is noted with very mildly enlarged ca rdiomediastinal silhouette. No acute osseous pathology seen. IMPRESSION: Moderate right pleural effusion, overall similar to the prior given semiupright position on the current exam and associated right basilar airspace disease, likely atelectasis.
[2019-10-11] MEDS ORDERED: FUROSEMIDE 10 MG/ML 10 ML VIAL IV SCH (16:15)
--- NOTE | 2019-10-11 17:34 | P.CNPUL ---
History of Present Illness Consult date: 10/11/19 Reason for consult: dyspnea, pleural effusion History of present illness: 59-year-old male coming in for hospital because of worsening lower extremity edema. The patient had developed diffuse anasarca and fluid retention. The patient has multiple medical problems and comorbidities. The patient has diabetes mellitus, peripheral neuropathy, diabetic ulcer and lower extremities along with osteomyelitis, peripheral vascular disease and previous history of chronic anemia, chronic diastolic heart failure in addition to chronic kidney disease, hypertension and hyperlipidemia. He has also had issues with a gangrenous toe on the left and the patient undergone a previous left toe amputation and this was done at [facility]. During this current admission, the patient comes in for signs of fluid overload. Nephrology was consulted on the case. The patient apparently was also complaining of some shortness of breath at the time of admission. I reviewed the labs and the patient white cell count was at 12.4 with a hemoglobin of 8.4. Since admission, the patient developed acute kidney injury. His creatinine was up to 1.36 and it gradually came up to 3.7 and the most recent blood work shows a sodium 133 with a potassium of 6.4 and a chloride of 98 and a bicarb of 21 and the BUN of 102 and creatinine of 3.7. The hyperkalemia was treated by nephrology and the repeat potassium level is pending. Lactic acid level was at 2.2. The echocardiogram showed a ejection fraction 40-45% along with segmental wall motion abnormalities. No significant valvular dysfunction. The patient moderate degree of atrophy hypertrophy consistent with hypertensive heart disease. Note that his current proBNP level is 15,700. The CAT scan of the brain was done as the patient was found to be lethargic and the CAT scan showed some cerebral atrophy. The chest x-ray at time of admission showed cardiomegaly along with [id number] central vascular congestion and interstitial edema lung with a moderate-sized right-sided pleural effusion. A repeat chest x-ray was done today again demonstrated right-sided pleural effusion. He has also a pacemaker/AICD in place. The patient has a left heel wound. Based on previous cultures, the patient has known MRSA and pseudomonas. The patient got transferred to the ICU this afternoon. The ultimate plan is to transfer this patient [facility] awaiting for his transfer to take place. He is on oxygen at 4 L per minute nasal cannula is quite lethargic. CAT scan of the head as mentioned above. He is currently on dopamine renal dose. He was given Lasix 60 mg IV push and this will be repeated 8 hours. He is mean arterial pressures above 60. Urine output remains low and order of 50 mL over the past 4 hours. Review of Systems Constitutional: Reports daytime sleepiness, Reports fatigue, Reports lethargy, Reports poor appetite, Reports weakness Eyes: denies as per HPI, denies blurred vision, denies bulging eye, denies decreased vision, denies diplopia, denies discharge, denies dry eye, denies irritation, denies itching, denies pain, denies photophobia, denies loss of peripheral vision, denies loss of vision, denies tunnel vision/blind spots Ears: deny: decreased hearing, ear discharge, earache, tinnitus Ears, nose, mouth and throat: Denies headache, Denies sore throat Breasts: absent: as per HPI, gynecomastia Cardiovascular: Reports decreased exercise tolerance, Reports dyspnea on exertion, Reports edema, Reports shortness of breath Gastrointestinal: Reports as per HPI Genitourinary: Reports as per HPI Musculoskeletal: Reports muscle weakness Musculoskeletal: bilateral: ankle stiffness, absent: ankle pain, ankle swelling, foot swelling, hand swelling, knee swelling Integumentary: Reports wounds (Right knee wound, left heel wound), Denies pruritus, Denies rash Neurological: Reports balance difficulties, Reports change in mentation, Reports confusion, Reports gait dysfunction, Reports weakness Psychiatric: Reports as per HPI Endocrine: Reports as per HPI, Reports high blood sugars, Reports low blood sugars Hematologic/Lymphatic: Reports as per HPI Allergic/Immunologic: Reports as per HPI Past Medical History Past Medical History: Heart Failure, Diabetes Mellitus, Hyperlipidemia, Hypertension, Neurologic Disorder Additional Past Medical History / Comment(s): Congestion heart failure with diastolic dysfunction and concentric LVH with hypertensive heart disease, bhavik betes mellitus, hypertension, hyperlipidemia, peripheral neuropathy, diabetic lower extremity ulcers, previous amputation of the toes bilaterally, peripheral vascular disease, previous history of osteomyelitis, left sided Fowler's coughing, chronic stage III kidney disease, chronic anemia, hypothyroidism, history of yesterday placement, history of depression with previous history of suicide History of Any Multi-Drug Resistant Organisms: CRE Date of last positivie culture/infection: 07/29/19 MRSA; 03/16/19 MDRO CRE MDRO Source:: Left Heel-MRSA; Toe-MDRO CRE Past Surgical History: Adenoidectomy, Tonsillectomy Additional Past Surgical History / Comment(s): L great toe amputation, L 5th toe amputation, L writst laceration repair, colonoscopy with benign polypectomies Past Anesthesia/Blood Transfusion Reactions: No Reported Reaction Type of Cardiac Device: AICD Device Placement Date:: 07/2019 Past Psychological History: Anxiety, Bipolar, Depression Smoking Status: Former smoker Past Alcohol Use History: None Reported Past Drug Use History: None Reported - Past Family History Father Family Medical History: Diabetes Mellitus Additional Family Medical History / Comment(s): Father had gallbladder disease. He is 77yrs old. Mother Family Medical History: Hyperlipidemia Medications and Allergies Home Medications Medication Instructions Recorded Confirmed Type Atorvastatin [Lipitor] 80 mg PO HS 30 Days #30 tab 01/19/19 10/08/19 Rx Insulin Glargine,Hum.rec.anlog 28 unit SQ DAILY 01/29/19 10/08/19 History [Lantus Solostar] Aspirin 81 mg PO DAILY #30 chew 02/11/19 10/08/19 Rx Potassium Chloride ER [K-Dur 20] 20 meq PO BID #60 tab.er.prt 02/11/19 10/08/19 Rx Furosemide [Lasix] 80 mg PO BID@0800,1600 03/15/19 10/08/19 History ALPRAZolam [Xanax] 0.25 mg PO BID 10/08/19 10/08/19 History Acetaminophen Tab [Tylenol Tab] 650 mg PO Q6H PRN 10/08/19 10/08/19 History Carvedilol [Coreg] 6.25 mg PO BID 10/08/19 10/08/19 History Clopidogrel [Plavix] 75 mg PO DAILY 10/08/19 10/08/19 History Docusate [Colace] 100 mg PO BID 10/08/19 10/08/19 History Ergocalciferol [Vitamin D2] 50,000 unit PO TH 10/08/19 10/08/19 History Ferrous Sulfate [Feosol] 325 mg PO Q48H 10/08/19 10/08/19 History HYDROcodone/APAP 5-325MG [[place] 1 tab PO Q6H PRN 10/08/19 10/08/19 History 5-325] Insulin Lispro [humaLOG Kwikpen] 15 unit SQ AC-TID 10/08/19 10/08/19 History Insulin Lispro [humaLOG Kwikpen] See Protocol SQ ACHS 10/08/19 10/08/19 History Ipratropium-Albuterol Nebulize 3 ml INHALATION RT-Q4H PRN 10/08/19 10/08/19 History [Duoneb 0.5 mg-3 mg/3 ml Soln] Iron Polysaccharide Complex 150 mg PO HS 10/08/19 10/08/19 History [Polysaccharide Iron] Levothyroxine Sodium [Synthroid] 75 mcg PO DAILY 10/08/19 10/08/19 History Loratadine [Claritin] 10 mg PO DAILY 10/08/19 10/08/19 History Magnesium Oxide [Mag-Ox] 400 mg PO BID@0800,1600 10/08/19 10/08/19 History Omeprazole 40 mg PO BID 10/08/19 10/08/19 History Prostat 1 can PO DAILY 10/08/19 10/08/19 History Sertraline [Zoloft] 100 mg PO DAILY 10/08/19 10/08/19 History Allergies Allergy/AdvReac Type Severity Reaction Status Date / Time lamotrigine [From Lamictal] Allergy Unknown Verified 10/08/19 10:10 Physical Exam Vitals: Vital Signs Temp Pulse Pulse Resp BP BP Pulse Ox 10/11/19 15:45 70 10 L 83/49 96 10/11/19 15:30 75 28 H 90/60 97 10/11/19 15:15 79 9 L 94/69 95 10/11/19 15:00 80 10 L 92/65 92 L 10/11/19 14:45 82 17 86/58 96 10/11/19 14:30 75 13 89/64 94 L 10/11/19 14:15 79 23 87/57 94 L 10/11/19 14:00 82 32 H 105/68 91 L 10/11/19 13:45 80 17 95/68 93 L 10/11/19 13:30 97.7 F 77 23 75/56 94 L 10/11/19 12:46 79 82/53 10/11/19 12:42 75 86/54 10/11/19 12:37 70 86/50 10/11/19 12:35 72 80/50 10/11/19 12:30 64 20 67/46 99 10/11/19 08:00 98.4 F 79 20 87/53 97 10/11/19 04:00 98.1 F 85 20 93/53 98 10/11/19 00:00 98.0 F 82 20 87/51 94 L 10/10/19 20:00 98.2 F 88 24 91/58 94 L Intake and Output 10/11/19 10/11/19 10/11/19 06:59 14:59 22:59 Intake Total 30 10 Output Total 240 30 Balance -210 -20 Intake: IV 30 10 0.9 NS 10 Dextrose/Water 1 250ml. 20 10 bag @ 5 MCG/KG/MIN 10.903 mls/hr IV .[id number] HELEN with DOPamine DRIP 800 mg Rx#:[id number] Output: Urine 240 30 Other: Voiding Method Indwelling Catheter Indwelling Catheter # Bowel Movements 0 1 Weight 127 kg GENERAL EXAM: Pleasant 58-year-old gentleman. The patient is very much lethargic. Currently on 4 L about 2 by nasal cannula. Despite his increased sleepiness and lethargy him a the patient is arousable and follows commands and answers questions. HEAD: Normocephalic. EYES: Normal reaction of pupils, equal size. NOSE: Clear with pink turbinates. THROAT: No erythema or exudates. NECK: No masses, no JVD. CHEST: No chest wall deformity. LUNGS: Equal air entry with crackles in the bilateral posterior bases. The breath sounds are quite diminished in the right lung base where there is dullness to percussion related to his underlying pleural effusion CVS: S1 and S2 normal with no audible murmur, regular rhythm. ABDOMEN: No hepatosplenomegaly, normal bowel sounds, no guarding or rigidity. There extensive anterior abdominal wall edema as gets worse in the back SPINE: No scoliosis or deformity SKIN: There is a mild diffuse erythematous rash covering the entire body , the patient has stage I and lower eczematous bilaterally and the patient has a heel ulcer. NERVOUS SYSTEM: No focal deficits, motor weakness in all 4 extremities noted. The patient is lethargic yet arousable. He follows simple commands. EXTREMITIES: There is extensive edema in all 4 extremities along with signs of anasarca and the skin is sleeping in various locations in addition to erythema seen throughout the entire body. No clubbing, no cyanosis. Peripheral pulses are intact. The patient has a heel ulcer on the right the base of which is dry clean and intact at this point in time. The patient has the first and fourth and fifth toes missing on the left and he also has the toe missing on the right. Pulses are diminished in lower extremities bilaterally. Results - Laboratory Findings CBC and BMP: 10/11/19 06:24 10/11/19 06:24 ABG ABG pH 7.33 (7.35-7.45) L 10/10/19 19: ABG pCO2 40 mmHg (35-45) 10/10/19 19: ABG pO2 61 mmHg (83-108) L 10/10/19 19: ABG O2 Saturation 88.6 % (94-97) L 10/10/19 19:23 Abnormal lab findings: Abnormal Labs 10/08/19 10/08/19 10/08/19 04:01 04:01 06:05 WBC RBC 3.15 L Hgb 8.5 L Hct 28.4 L MCHC 30.0 L Plt Count Neutrophils # Lymphocytes # ABG pH ABG pO2 ABG O2 Saturation Sodium 136 L Potassium Carbon Dioxide BUN 54 H Creatinine 1.58 H Glucose 197 H POC Glucose (mg/dL) Plasma Lactic Acid [place] Calcium Phosphorus Magnesium Alkaline Phosphatase 231 H Amylase <30 L Urine Protein Trace H Ur Leukocyte Esterase Moderate H Urine WBC 11 H Urine WBC Clumps Rare H Urine Bacteria Many H Hyaline Casts 64 H Urine Mucus Rare H Urine Yeast (Budding) Rare H 10/08/19 10/08/19 10/09/19 07:52 12:18 06:09 WBC 13.5 H RBC 3.25 L Hgb 8.6 L Hct 29.5 L MCHC 29.2 L Plt Count 521 H Neutrophils # 12.6 H Lymphocytes # 0.3 L ABG pH ABG pO2 ABG O2 Saturation Sodium Potassium Carbon Dioxide BUN Creatinine Glucose POC Glucose (mg/dL) 188 H 142 H Plasma Lactic Acid [place] Calcium Phosphorus Magnesium Alkaline Phosphatase Amylase Urine Protein Ur Leukocyte Esterase Urine WBC Urine WBC Clumps Urine Bacteria Hyaline Casts Urine Mucus Urine Yeast (Budding) 10/09/19 10/09/19 10/09/19 06:09 06:19 12:00 WBC RBC Hgb Hct MCHC Plt Count Neutrophils # Lymphocytes # ABG pH ABG pO2 ABG O2 Saturation Sodium 136 L Potassium Carbon Dioxide 21 L BUN 66 H Creatinine 2.19 H Glucose 44 L* POC Glucose (mg/dL) 70 L 153 H Plasma Lactic Acid [place] Calcium 8.1 L Phosphorus Magnesium Alkaline Phosphatase Amylase Urine Protein Ur Leukocyte Esterase Urine WBC Urine WBC Clumps Urine Bacteria Hyaline Casts Urine Mucus Urine Yeast (Budding) 10/09/19 10/10/19 10/10/19 20:10 06:13 06:13 WBC 11.7 H RBC 3.29 L Hgb 8.9 L Hct 29.8 L MCHC 29.7 L Plt Count 495 H Neutrophils # 10.3 H Lymphocytes # 0.3 L ABG pH ABG pO2 ABG O2 Saturation Sodium 133 L Potassium 5.3 H Carbon Dioxide 19 L BUN 83 H Creatinine 3.00 H Glucose 24 L* POC Glucose (mg/dL) 125 H Plasma Lactic Acid [place] Calcium 8.1 L Phosphorus 6.4 H Magnesium Alkaline Phosphatase Amylase Urine Protein Ur Leukocyte Esterase Urine WBC Urine WBC Clumps Urine Bacteria Hyaline Casts Urine Mucus Urine Yeast (Budding) 10/10/19 10/10/19 10/10/19 07:07 07:22 07:38 WBC RBC Hgb Hct MCHC Plt Count Neutrophils # Lymphocytes # ABG pH ABG pO2 ABG O2 Saturation Sodium Potassium Carbon Dioxide BUN Creatinine Glucose POC Glucose (mg/dL) 38 L 51 L 69 L Plasma Lactic Acid [place] Calcium Phosphorus Magnesium Alkaline Phosphatase Amylase Urine Protein Ur Leukocyte Esterase Urine WBC Urine WBC Clumps Urine Bacteria Hyaline Casts Urine Mucus Urine Yeast (Budding) 10/10/19 10/10/19 10/10/19 11:56 16:10 17:00 WBC RBC Hgb Hct MCHC Plt Count Neutrophils # Lymphocytes # ABG pH ABG pO2 ABG O2 Saturation Sodium Potassium Carbon Dioxide BUN Creatinine Glucose POC Glucose (mg/dL) 129 H 118 H 113 H Plasma Lactic Acid [place] Calcium Phosphorus Magnesium Alkaline Phosphatase Amylase Urine Protein Ur Leukocyte Esterase Urine WBC Urine WBC Clumps Urine Bacteria Hyaline Casts Urine Mucus Urine Yeast (Budding) 10/10/19 10/10/19 10/11/19 19:23 20:10 06:24 WBC 12.4 H RBC 3.19 L Hgb 8.4 L Hct 29.0 L MCHC 29.0 L Plt Count 474 H Neutrophils # 10.8 H Lymphocytes # 0.4 L ABG pH 7.33 L ABG pO2 61 L ABG O2 Saturation 88.6 L Sodium Potassium Carbon Dioxide BUN Creatinine Glucose POC Glucose (mg/dL) 114 H Plasma Lactic Acid [place] Calcium Phosphorus Magnesium Alkaline Phosphatase Amylase Urine Protein Ur Leukocyte Esterase Urine WBC Urine WBC Clumps Urine Bacteria Hyaline Casts Urine Mucus Urine Yeast (Budding) 10/11/19 10/11/19 10/11/19 06:24 06:25 08:54 WBC RBC Hgb Hct MCHC Plt Count Neutrophils # Lymphocytes # ABG pH ABG pO2 ABG O2 Saturation Sodium 133 L Potassium 6.4 H* Carbon Dioxide 21 L BUN 102 H* Creatinine 3.70 H Glucose 153 H POC Glucose (mg/dL) 163 H 172 H Plasma Lactic Acid [place] Calcium 8.1 L Phosphorus Magnesium Alkaline Phosphatase Amylase Urine Protein Ur Leukocyte Esterase Urine WBC Urine WBC Clumps Urine Bacteria Hyaline Casts Urine Mucus Urine Yeast (Budding) 10/11/19 10/11/19 10/11/19 10:35 12:22 12:45 WBC RBC Hgb Hct MCHC Plt Count Neutrophils # Lymphocytes # ABG pH ABG pO2 ABG O2 Saturation Sodium Potassium Carbon Dioxide BUN Creatinine Glucose POC Glucose (mg/dL) 182 H 153 H Plasma Lactic Acid [place] 2.2 H* Calcium Phosphorus Magnesium Alkaline Phosphatase Amylase Urine Protein Ur Leukocyte Esterase Urine WBC Urine WBC Clumps Urine Bacteria Hyaline Casts Urine Mucus Urine Yeast (Budding) 10/11/19 14:24 WBC RBC Hgb Hct MCHC Plt Count Neutrophils # Lymphocytes # ABG pH ABG pO2 ABG O2 Saturation Sodium Potassium Carbon Dioxide BUN Creatinine Glucose POC Glucose (mg/dL) Plasma Lactic Acid [place] Calcium Phosphorus Magnesium 2.6 H Alkaline Phosphatase Amylase Urine Protein Ur Leukocyte Esterase Urine WBC Urine WBC Clumps Urine Bacteria Hyaline Casts Urine Mucus Urine Yeast (Budding) - Diagnostic Findings Chest x-ray: image reviewed Assessment and Plan Plan: #1 Acute exacerbation of diastolic congestive heart failure. The patient has developed signs of diffuse edema, anasarca and fluid overload which is consi dered to be massive at this point in time. No signs of any nephrosis. No signs of liver cirrhosis. No signs of any significant hypoproteinemia and hyperlipidemia. As such, the massive fluid overload is probably related to his underlying CHF in addition to an acute kidney injury on top of chronic renal failure. #2 acute kidney injury on top of chronic kidney failure. The patient is oliguric at this point in time. The patient has also developed acute hyperkalemia in a sedation with acute kidney injury. Consider cardiorenal factors. #3 Hyperlipidemia. #4 Morbid obesity. #5 Diabetes mellitus . By development of diabetic ulcers in the lower extremities bilaterally in addition to peripheral neuropathy related to diabetes mellitus #6 history of depression along with previous history of suicide attempts by cutting his left wrist. #7 Recent amputation of the left great toe and left small toe. #8 chronic anemia, multifactorial, consider anemia of chronic disease #9 Peripheral vascular occlusive disease. #10 diffuse anasarca and edema #11 diffuse body rash #13 borderline hypotension maintain on midodrine on outpatient basis currently not requiring any pressors as the patient's the atrial pressures above 65 #14 previous history of AICD placement #15 diminished level of consciousness although that is no focal neurological deficit. CAT scan of the brain shows no acute abnormalities. #16 right-sided pleural effusion moderate in size #17 acute hypoxic respiratory failure currently on oxygen at 4 L per minute nasal cannula Plan Repeat potassium and treat accordingly Continue IV Lasix Keep dopamine Continued IV Rocephin There is an accepting physician and the bed at [facility] and the patient will be changed accordingly per request of the primary care team and the family.
[2019-10-11 18:44] LABS: Glucose,Whole Blood 97 mg/dL (75-99)
[2019-10-11 18:52] LABS: Potassium 6.2 mmol/L (3.5-5.1)
[2019-10-11] MEDS ORDERED: DEXTROSE 10 % IN WATER 250 ML IV ONE (18:58)
--- NOTE | 2019-10-11 20:17 | PN ---
PROGRESS NOTE DATE OF SERVICE: 10/11/2019 This 59-year-old gentleman was admitted with CHF acute exacerbation, also had acute renal injury. The creatinine is worsening today. Today's creatinine is around 3.7 and potassium is elevated to 6.4 also. Patient is also oliguric as well. Nephrology has recommended possible transfer to [facility] which I discussed with the case picker. healthcare project manager is contacting [facility]. Please note, the patient has been previously admitted to [facility] with multiple medical surgical issues including amputations of toes and cardiac procedures as well. For the 6.4 potassium, patient was given insulin glucose regimen. Nephrology following the patient closely. Repeat potassium has been recommended. Patient being closely monitored at this time. Patient still has some generalized edema. PAST MEDICAL HISTORY: Reviewed. REVIEW OF SYSTEMS: Cardio system: As mentioned earlier. RESPIRATORY: As mentioned earlier. GI: As mentioned earlier. : No dysuria. 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 CURRENT MEDICATIONS: Reviewed and include: 1. Tylenol p.r.n. 2. [place] 5 mg q. p.r.n. 3. Xanax 0.25 t.i.d. 4. Aspirin 81 mg p.o. daily. 5. Lipitor 80 mg q.h.s. 6. Rocephin 1 g IV daily. 7. Plavix. 8. Colace. 9. Vitamin D2. 10.Lasix. 11.NovoLog. 12.Levemir. 13.Claritin. 14.Lopressor. 15.ProAmatine. 16.Zofran. 17.Protonix. 18.Zoloft. 19.Restoril. 20.Doses reviewed. PHYSICAL EXAM: Patient is alert, oriented x3. Pulse 79. Blood pressure 85/57, respiration 20, temperature normal, pulse ox 94% on 4 L. HEENT is conjunctivae normal. Oral mucosa moist. NECK is no jugular venous distention. No carotid bruit. No lymph node enlargement. Cardiovascular systems: S1, S2 muffled. RESPIRATION: Breath sounds diminished in the bases. Scattered rhonchi and crackles. ABDOMEN: Soft, obese, nontender. No mass palpable. LEGS: Bilateral leg edema. Right heel ulcer also present. Grade 1-2. NERVOUS SYSTEM: Higher functions as mentioned earlier. Moves all four extremities. Mild diffuse weakness. LYMPHATICS: No lymph nodes palpable in the neck, axillae or groin. SKIN: As mentioned earlier. JOINTS: No active deforming arthropathy. LAB STUDIES: WBC 12.2, hemoglobin is 8.4, sodium 130, potassium 6.4, creatinine 3.70. ASSESSMENT: 1. Congestive heart failure acute exacerbation with acute on chronic systolic dysfunction ejection fraction 40-45 percent. 2. Acute renal failure, acute on chronic renal failure with acute prerenal acute tubular necrosis. 3. Possible chronic kidney disease stage 3 as baseline. 4. Hyperkalemia secondary to renal failure. 5. Increased WBC. 6. Anemia, normocytic anemia of chronic disease. 7. History of diabetes type 2. 8. Hypertension. 9. Hyperlipidemia. 10.History of peripheral neuropathy. 11.History of peripheral vascular disease. 12.Status post recent gangrene of the left great toe amputation. 13.History of osteomyelitis, left fifth toe with amputation. 14.History of recent suicide attempts with laceration of left wrist. 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 16.History of falls. 17.Gait dysfunction. 18.Anxiety, bipolar depression. 19.Gait dysfunction. 20.Bilateral leg swelling. 21.FULL CODE. 22.Obesity with body mass index 40.2. RECOMMENDATIONS AND DISCUSSION: In this 59-year-old gentleman who presented with multiple complex medical issues, we will monitor the patient closely, continue the current medications, management and symptomatic treatment. The creatinine is worsening at this time. The patient also had hyperkalemia and features of renal failure. The patient has been to [facility] previously with multiple vascular comorbidities. I would recommend discussing with [facility] transfer team for possible transfer. We will continue to monitor. Otherwise prognosis guarded. Insulin glucose regimen has been given. I would recommend repeat potassium and also in the evening, to make sure stability. Avoid hyperkalemic agents. Continue with antibiotics. Medications reviewed. Lasix 80 mg extra dose was also given. Monitor blood sugars closely. Prognosis guarded. Further recommendations to follow. MMODL / IJN: [id number] / [id number]
[2019-10-11] MEDS: ATORVASTATIN 80 MG TAB PO SCH (20:30)
[2019-10-11 20:41] VITALS: RESP 20; TEMP 97.5
--- NOTE | 2019-10-11 21:08 | PN ---
PROGRESS NOTE Patient was seen this morning. He was lying in bed. He was comfortable, not in any acute distress. The patient is currently on IV Lasix 40 mg q.8 hours. He is also maintained on dobutamine. Echocardiogram shows ejection fraction 40-45%. A 24 hour urine output is only about 150 mL. Examination of the heart S1, S2. Examination of the lungs, decreased breath sounds at bases. Abdomen is soft, obese, distended. Examination of lower extremities shows edema 3+ bilaterally. 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 LABS: Show sodium 133, potassium 6.4, chloride 98, BUN 102, serum creatinine 3.7. ProBNP 1570. ASSESSMENT: 1. Acute kidney injury, mainly cardiorenal, oliguric with hyperkalemia. I will give a dose of 80 mg of Lasix IV push and patient will most likely be started on Lasix drip. His blood pressures are low. He is maintained on dopamine which we can continue. 2. Hyperkalemia associated with acute kidney injury and worsening renal failure and hyperglycemia. No medications on board to promote the hyperkalemia. I will treat with IV insulin and we will recheck another potassium in about 3 hours. 3. Chronic kidney disease stage 3, baseline creatinine 1-1.2 with underlying diabetic nephropathy. 4. Generalized edema. 5. Metabolic acidosis associated with advanced renal failure. 6. Complicated urinary tract infection. PLAN: Continue with the sodium bicarb. Increase Lasix. Treat hyperkalemia with IV medications. Continue with dopamine as patient remains hypotensive. We may need to add more pressors if he continues to be hypotensive. MMODL / IJN: [id number] /
[2019-10-11 21:17] VITALS: BP 99/68; PULSE 85
[2019-10-11 21:27] LABS: Glucose,Whole Blood 94 mg/dL (75-99)
--- NOTE | 2019-10-13 07:36 | DS ---
DISCHARGE SUMMARY DATE OF SERVICE: 10/12/2019 FINAL DIAGNOSES: 1. Congestive heart failure acute exacerbation with acute on chronic systolic dysfunction, ejection fraction 40%-45%. 2. Acute renal failure with acute prerenal acute tubular necrosis, worsening. 3. Hyperkalemia. 4. Possible chronic kidney stage III, baseline. 5. Increased WBC. 6. Anemia, normocytic anemia of chronic disease. 7. Change in mental status acute metabolic encephalopathy multifactorial. 8. History of diabetes mellitus type 2. 9. Hypertension. 10.Hyperlipidemia. 11.History of peripheral neuropathy. 12.History of peripheral vascular disease. 13.History of recent gangrene of the left great toe and amputation. 14.History of osteomyelitis of the left fifth toe with amputation. 15.History of recent suicide attempt with laceration of the left wrist. 16.History of Fowler's palsy, left face. 17.History of falls. 18.Gait dysfunction. 19.Anxiety, bipolar depression. 20.Bilateral leg swelling. 21.Obesity with body mass index of 40.6. 22.FULL CODE. DISCHARGE DISPOSITION: The patient will be transferred to [facility] in stable condition, guarded prognosis. HISTORY OF PRESENT ILLNESS: This is a 59-year-old gentleman with a past medical history of multiple medical problems admitted with CHF acute exacerbation. Subsequently, patient had renal failure. Creatinine went up to 3.4 . The patient also had change in mental status also. The patient has significant vascular problems which was previously evaluated and treated in the [facility] so per recommendation of the Vascular Surgery and Nephrology, we called the [facility] paper bundler and talked to the cardiology team and subsequently and CCU fellow and the patient was transferred to [facility] CCU for further evaluation and treatment. As mentioned earlier, the creatinine is worsening and the prognosis may be guarded because of multiple complex medical issues. Further recommendations to follow. Please refer to the medication reconciliation sheet for list of medications. MMODL / IJN: [id number] / MTDD
[2019-10-14] MEDS ORDERED: ERGOCALCIFEROL 50,000 UNIT CAP PO SCH (09:00)
== END 2019-10-11 21:55 | disposition short-term general hospital (02) | DRG 291 ==
LOC: EC 03:58 → 3SCARD 06:42 → 2SICU 10-11 13:36
PROVIDERS: ADMIT Internal Medicine; ATTEND Internal Medicine
DX: I13.0 Hypertensive heart and chronic kidney disease with heart failure and stage 1 through stage 4 chronic kidney disease, or unspecified chronic kidney disease (principal); I50.43 Acute on chronic combined systolic (congestive) and diastolic (congestive) heart failure; N17.0 Acute kidney failure with tubular necrosis; J96.01 Acute respiratory failure with hypoxia; G93.41 Metabolic encephalopathy; N39.0 Urinary tract infection, site not specified; E87.2 Acidosis; Z68.41 Body mass index [BMI] 40.0-44.9, adult; E87.5 Hyperkalemia; I95.9 Hypotension, unspecified; E11.51 Type 2 diabetes mellitus with diabetic peripheral angiopathy without gangrene; E11.40 Type 2 diabetes mellitus with diabetic neuropathy, unspecified; E11.65 Type 2 diabetes mellitus with hyperglycemia; E11.22 Type 2 diabetes mellitus with diabetic chronic kidney disease; E11.622 Type 2 diabetes mellitus with other skin ulcer; L98.499 Non-pressure chronic ulcer of skin of other sites with unspecified severity; N18.3 Chronic kidney disease, stage 3 (moderate); D63.1 Anemia in chronic kidney disease; K21.9 Gastro-esophageal reflux disease without esophagitis; E78.5 Hyperlipidemia, unspecified; E66.01 Morbid (severe) obesity due to excess calories; E03.9 Hypothyroidism, unspecified; G47.00 Insomnia, unspecified; G51.0 Bell's palsy; I42.9 Cardiomyopathy, unspecified; G31.9 Degenerative disease of nervous system, unspecified; F41.9 Anxiety disorder, unspecified; F31.9 Bipolar disorder, unspecified; D50.9 Iron deficiency anemia, unspecified; E11.649 Type 2 diabetes mellitus with hypoglycemia without coma; R21 Rash and other nonspecific skin eruption; R11.2 Nausea with vomiting, unspecified; Z79.4 Long term (current) use of insulin; Z79.899 Other long term (current) drug therapy; Z79.890 Hormone replacement therapy; Z79.82 Long term (current) use of aspirin; Z79.02 Long term (current) use of antithrombotics/antiplatelets; Z88.8 Allergy status to other drugs, medicaments and biological substances; Z89.412 Acquired absence of left great toe; Z89.422 Acquired absence of other left toe(s); Z95.810 Presence of automatic (implantable) cardiac defibrillator; Z98.890 Other specified postprocedural states; Z86.010 Personal history of colon polyps; Z91.5 Personal history of self-harm; Z86.14 Personal history of Methicillin resistant Staphylococcus aureus infection; Z90.49 Acquired absence of other specified parts of digestive tract; Z87.891 Personal history of nicotine dependence; Z83.3 Family history of diabetes mellitus; Z83.438 Family history of other disorder of lipoprotein metabolism and other lipidemia; Z83.79 Family history of other diseases of the digestive system; Z91.81 History of falling; Z90.89 Acquired absence of other organs
CPT/HCPCS: 36415; 36600; 51702; 70450; 71045; 80048; 80053; 81001; 82140; 82150; 82533; 82805; 83605; 83690; 83735; 83880; 84100; 84132; 84484; 85025; 87040; 93005; 93306; 96374; 99285